=== PATIENT | male | born 1960 | race Caucasian/White ===

== ENCOUNTER → 2017-12-15 | Outpatient (CLI) | payer BC | LOC: WOUNDCARE 08:56 | PROVIDERS: ATTEND Nurse Practitioner | DX: I87.2 Venous insufficiency (chronic) (peripheral) (principal); L97.222 Non-pressure chronic ulcer of left calf with fat layer exposed; L97.212 Non-pressure chronic ulcer of right calf with fat layer exposed; L97.522 Non-pressure chronic ulcer of other part of left foot with fat layer exposed; L97.312 Non-pressure chronic ulcer of right ankle with fat layer exposed | CPT/HCPCS: 99203 ==

== ENCOUNTER → 2017-12-21 | Outpatient (CLI) | payer BC | LOC: WOUNDCARE 14:07 | PROVIDERS: ATTEND Surgery | DX: I87.333 Chronic venous hypertension (idiopathic) with ulcer and inflammation of bilateral lower extremity (principal); L97.312 Non-pressure chronic ulcer of right ankle with fat layer exposed; L97.522 Non-pressure chronic ulcer of other part of left foot with fat layer exposed; L97.222 Non-pressure chronic ulcer of left calf with fat layer exposed; L97.212 Non-pressure chronic ulcer of right calf with fat layer exposed | CPT/HCPCS: 11042; 11045; 87070; 87075; 87077; 87186; 87205 ==

== ENCOUNTER → 2017-12-21 | Outpatient (CLI) | payer BC ==
[2017-12-21 16:45] LABS: BASOPHILS % (AUTO) 1 % (0-10); EOSINOPHILS # (AUTO) 0.4 10^3/uL (0.0-0.3); EOSINOPHILS % (AUTO) 7 % (0-10); HEMATOCRIT 32 % (40-54); HEMOGLOBIN 9.8 G/DL (13.3-17.7); LYMPHOCYTES # (AUTO) 1.6 X 10^3 (1.0-4.0); LYMPHOCYTES % (AUTO) 27 % (12-44); MEAN CORPUSCULAR HEMOGLOBIN 23 PG (25-34); MEAN CORPUSCULAR HGB CONC 31 G/DL (32-36); MEAN CORPUSCULAR VOLUME 74 FL (80-99); MEAN PLATELET VOLUME 8.6 FL (7.4-10.4); MONOCYTES # (AUTO) 0.7 X 10^3 (0.0-1.0); MONOCYTES % (AUTO) 12 % (0-12); NEUTROPHILS # (AUTO) 3.3 X 10^3 (1.8-7.8); NEUTROPHILS % (AUTO) 54 % (42-75); PLATELET COUNT 324 10^3/uL (130-400); RED BLOOD COUNT 4.31 10^6/uL (4.35-5.85); RED CELL DISTRIBUTION WIDTH 17.6 % (10.0-14.5)
[2017-12-21 17:04] LABS: ALANINE AMINOTRANSFERASE 19 U/L (0-55); ALBUMIN 3.2 GM/DL (3.2-4.5); ALKALINE PHOSPHATASE 128 U/L (40-136); BILIRUBIN,TOTAL 0.2 MG/DL (0.1-1.0); BUN/CREATININE RATIO 16; CALCIUM 8.7 MG/DL (8.5-10.1); CARBON DIOXIDE 24 MMOL/L (21-32); CHLORIDE 104 MMOL/L (98-107); CREATININE SERUM 1.09 MG/DL (0.60-1.30); GFR ESTIMATED > 60; GLUCOSE 91 MG/DL (70-105); POTASSIUM 4.1 MMOL/L (3.6-5.0); SODIUM 137 MMOL/L (135-145); TOTAL PROTEIN 7.2 GM/DL (6.4-8.2)
--- NOTE | 2017-12-21 17:38 | Diagnostic Imaging Report ---
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 FINDINGS: Four views of the left tibia and fibula show no fracture, dislocation or other acute bony abnormality. No osteomyelitis is evident. There is soft tissue defect seen in the mid calf which may be secondary to an ulceration but no foreign body is seen. No interstitial air is seen. IMPRESSION: Soft tissue ulceration. No osteomyelitis is evident. Dictated by: Dictated on workstation # [id number]
--- NOTE | 2017-12-21 17:41 | Diagnostic Imaging Report ---
INDICATION: Left foot ulcer. FINDINGS: Three views of the left foot shows no fracture, dislocation or other acute bony abnormality. There is no evidence of osteomyelitis. There is swelling of the foot with no focal mass or foreign body seen. IMPRESSION: Swelling. No osteomyelitis is evident. Dictated by: Dictated on workstation # [id number]
--- NOTE | 2017-12-21 17:46 | Diagnostic Imaging Report ---
INDICATION: Right ankle pain FINDINGS: Three views of the right ankle showed no fracture, dislocation or other acute abnormalities. IMPRESSION: Negative right ankle. Dictated by: Dictated on workstation # [id number]
== END ==
LOC: RAD 16:31
PROVIDERS: ATTEND Surgery
DX: L97.312 Non-pressure chronic ulcer of right ankle with fat layer exposed (principal); L97.522 Non-pressure chronic ulcer of other part of left foot with fat layer exposed; L97.222 Non-pressure chronic ulcer of left calf with fat layer exposed
CPT/HCPCS: 36415; 73590; 73610; 73630; 80053; 85025; 88305

== ENCOUNTER → 2017-12-22 | Outpatient (CLI) | payer BC | LOC: LAB 17:13 | PROVIDERS: ATTEND Surgery | DX: I87.333 Chronic venous hypertension (idiopathic) with ulcer and inflammation of bilateral lower extremity (principal); L97.222 Non-pressure chronic ulcer of left calf with fat layer exposed | CPT/HCPCS: 36415; 81240; 81241; 83090; 85240; 85307; 85597; 85610; 85613; 85670; 85705; 85730; 86146; 86147 ==

== ENCOUNTER → 2018-01-01 | Outpatient (CLI) | payer BC | LOC: WOUNDCARE 09:49 | PROVIDERS: ATTEND Nurse Practitioner | DX: L97.222 Non-pressure chronic ulcer of left calf with fat layer exposed (principal); L97.212 Non-pressure chronic ulcer of right calf with fat layer exposed; L97.312 Non-pressure chronic ulcer of right ankle with fat layer exposed; I87.333 Chronic venous hypertension (idiopathic) with ulcer and inflammation of bilateral lower extremity; L97.522 Non-pressure chronic ulcer of other part of left foot with fat layer exposed | CPT/HCPCS: 99214 ==

== ENCOUNTER → 2018-01-08 | Outpatient (CLI) | payer BC | LOC: WOUNDCARE 11:09 | PROVIDERS: ATTEND Surgery | DX: L97.222 Non-pressure chronic ulcer of left calf with fat layer exposed (principal); L97.212 Non-pressure chronic ulcer of right calf with fat layer exposed; L97.312 Non-pressure chronic ulcer of right ankle with fat layer exposed; I87.333 Chronic venous hypertension (idiopathic) with ulcer and inflammation of bilateral lower extremity; L97.522 Non-pressure chronic ulcer of other part of left foot with fat layer exposed; D68.51 Activated protein C resistance | CPT/HCPCS: 11042; 11045 ==

== ENCOUNTER → 2018-01-12 | Outpatient (CLI) | payer BC | LOC: WOUNDCARE 08:13 | PROVIDERS: ATTEND Nurse Practitioner | DX: L97.222 Non-pressure chronic ulcer of left calf with fat layer exposed (principal); L97.212 Non-pressure chronic ulcer of right calf with fat layer exposed; L97.312 Non-pressure chronic ulcer of right ankle with fat layer exposed; I87.333 Chronic venous hypertension (idiopathic) with ulcer and inflammation of bilateral lower extremity; L97.522 Non-pressure chronic ulcer of other part of left foot with fat layer exposed; D68.51 Activated protein C resistance | CPT/HCPCS: 11042; 11045 ==

== ENCOUNTER → 2018-01-19 | Outpatient (CLI) | payer BC | LOC: WOUNDCARE 08:16 | PROVIDERS: ATTEND Nurse Practitioner | DX: L97.222 Non-pressure chronic ulcer of left calf with fat layer exposed (principal); L97.212 Non-pressure chronic ulcer of right calf with fat layer exposed; L97.312 Non-pressure chronic ulcer of right ankle with fat layer exposed; I87.333 Chronic venous hypertension (idiopathic) with ulcer and inflammation of bilateral lower extremity; L97.522 Non-pressure chronic ulcer of other part of left foot with fat layer exposed; D68.51 Activated protein C resistance | CPT/HCPCS: 11042; 11045; 87070; 87075; 87077; 87186; 87205 ==

== ENCOUNTER → 2018-01-26 | Outpatient (CLI) | payer BC | LOC: WOUNDCARE 08:17 | PROVIDERS: ATTEND Nurse Practitioner | DX: L97.222 Non-pressure chronic ulcer of left calf with fat layer exposed (principal); L97.212 Non-pressure chronic ulcer of right calf with fat layer exposed; L97.312 Non-pressure chronic ulcer of right ankle with fat layer exposed; I87.333 Chronic venous hypertension (idiopathic) with ulcer and inflammation of bilateral lower extremity; L97.522 Non-pressure chronic ulcer of other part of left foot with fat layer exposed; D68.51 Activated protein C resistance | CPT/HCPCS: 11042 ==

== ENCOUNTER → 2018-02-09 | Outpatient (CLI) | payer BC | LOC: WOUNDCARE 08:20 | PROVIDERS: ATTEND Nurse Practitioner | DX: L97.222 Non-pressure chronic ulcer of left calf with fat layer exposed (principal); L97.212 Non-pressure chronic ulcer of right calf with fat layer exposed; L97.312 Non-pressure chronic ulcer of right ankle with fat layer exposed; I87.333 Chronic venous hypertension (idiopathic) with ulcer and inflammation of bilateral lower extremity; L97.522 Non-pressure chronic ulcer of other part of left foot with fat layer exposed; D68.51 Activated protein C resistance | CPT/HCPCS: 11042; 11045 ==

== ENCOUNTER → 2018-02-16 | Outpatient (CLI) | payer BC | LOC: WOUNDCARE 08:12 | PROVIDERS: ATTEND Nurse Practitioner | DX: L97.222 Non-pressure chronic ulcer of left calf with fat layer exposed (principal); L97.212 Non-pressure chronic ulcer of right calf with fat layer exposed; L97.312 Non-pressure chronic ulcer of right ankle with fat layer exposed; I87.333 Chronic venous hypertension (idiopathic) with ulcer and inflammation of bilateral lower extremity; L97.522 Non-pressure chronic ulcer of other part of left foot with fat layer exposed; D68.51 Activated protein C resistance | CPT/HCPCS: 11042; 11045 ==

== ENCOUNTER → 2018-02-18 | Outpatient (CLI) | payer BC | LOC: WOUNDCARE 08:14 | PROVIDERS: ATTEND Orthopaedic Surgery Hand Surgery | DX: L97.222 Non-pressure chronic ulcer of left calf with fat layer exposed (principal); L97.212 Non-pressure chronic ulcer of right calf with fat layer exposed; L97.312 Non-pressure chronic ulcer of right ankle with fat layer exposed; I87.333 Chronic venous hypertension (idiopathic) with ulcer and inflammation of bilateral lower extremity; L97.522 Non-pressure chronic ulcer of other part of left foot with fat layer exposed; D68.51 Activated protein C resistance | CPT/HCPCS: 29581 ==

== ENCOUNTER → 2018-02-23 | Outpatient (CLI) | payer BC ==
[~2018-02-23] MED LIST: OXYC-465 PO
== END ==
LOC: WOUNDCARE 08:12
PROVIDERS: ATTEND Nurse Practitioner
DX: L97.222 Non-pressure chronic ulcer of left calf with fat layer exposed (principal); L97.212 Non-pressure chronic ulcer of right calf with fat layer exposed; L97.312 Non-pressure chronic ulcer of right ankle with fat layer exposed; I87.333 Chronic venous hypertension (idiopathic) with ulcer and inflammation of bilateral lower extremity; L97.522 Non-pressure chronic ulcer of other part of left foot with fat layer exposed; D68.51 Activated protein C resistance; D50.9 Iron deficiency anemia, unspecified; I82.503 Chronic embolism and thrombosis of unspecified deep veins of lower extremity, bilateral
CPT/HCPCS: 11042; 11045

== ENCOUNTER 2018-02-24 05:37 | Outpatient (CLI) | payer BC ==
[~2018-02-24] VITALS: Ht 193 cm; Wt 151.5 kg
[2018-02-24] MEDS ORDERED: OXYC-465 PO (14:22)
== END 2018-02-24 15:09 | disposition home or self-care (01) ==
LOC: PREOP 05:37
PROVIDERS: ATTEND Surgery
DX: Z01.818 Encounter for other preprocedural examination (principal)

== ENCOUNTER → 2018-02-25 | Outpatient (CLI) | payer BC | LOC: WOUNDCARE 08:13 | PROVIDERS: ATTEND Orthopaedic Surgery Hand Surgery | DX: L97.222 Non-pressure chronic ulcer of left calf with fat layer exposed (principal); L97.212 Non-pressure chronic ulcer of right calf with fat layer exposed; L97.312 Non-pressure chronic ulcer of right ankle with fat layer exposed; I87.333 Chronic venous hypertension (idiopathic) with ulcer and inflammation of bilateral lower extremity; L97.522 Non-pressure chronic ulcer of other part of left foot with fat layer exposed; D68.51 Activated protein C resistance; D50.9 Iron deficiency anemia, unspecified; I82.503 Chronic embolism and thrombosis of unspecified deep veins of lower extremity, bilateral | CPT/HCPCS: 29581 ==

== ENCOUNTER 2018-03-01 07:01 | Day surgery (SDC) | payer BC ==
[~2018-03-01] VITALS: Ht 193 cm; Wt 151.5 kg
--- OUTSIDE RECORDS SUMMARY | 2018-03-01 07:04 | XMS REPORT | Continuity of Care Document ---
Author Author [facility] Organization [facility] Address Unknown Phone Unavailable Allergies Active Description Code Type Severity Reaction Onset Reported/Identified Relationship to Patient Clinical Status Yes clindamycin [id number] Drug Allergy Severe ANAPHYLAXIS 02/24/2018 Yes morphine [id number] Drug Allergy Mild N/V 02/24/2018 Medications There is no data. Problems Date Dx Coded Attending Type Code Diagnosis Diagnosed By 10/04/2009 Ot 530.11 10/04/2009 Ot 531.90 10/04/2009 Ot 553.3 10/04/2009 Ot 569.3 11/27/2009 Ot 285.9 11/27/2009 Ot V12.51 02/23/2014 Ot 715.36 02/23/2014 Ot 278.00 02/23/2014 Ot 280.9 02/23/2014 Ot 443.9 02/23/2014 Ot V12.51 02/23/2014 Ot V16.8 02/23/2014 Ot 285.9 02/23/2014 Ot V12.51 02/23/2014 DIDI LLANOS, KARIN R Ot 338.29 02/23/2014 DIDI LLANOS, KARIN R Ot 722.52 02/23/2014 DIDI LLANOS, KARIN R Ot 729.2 02/27/2014 DIDI LLANOS, KARIN R Ot 719.47 03/14/2014 KARIN TOLBERT MD R Ot 719.47 12/18/2017 MARY PERSAUD APRN Ot I87.2 VENOUS INSUFFICIENCY (CHRONIC) (PERIPHER 12/18/2017 MARY PERSAUD APRN Ot L97.212 NON-PRESSURE CHRONIC ULCER OF RIGHT CALF 12/18/2017 MARY PERSAUD APRN Ot L97.222 NON-PRESSURE CHRONIC ULCER OF LEFT CALF 12/18/2017 MARY PERSAUD APRN Ot L97.312 NON-PRS CHRONIC ULCER OF RIGHT ANKLE W F 12/18/2017 CORI, MARY R WOOD DRILL OPERATOR Ot L97.522 NON-PRS CHRONIC ULCER OTH PRT LEFT FOOT 12/18/2017 MARY PERSAUD APRN Ot I87.2 VENOUS INSUFFICIENCY (CHRONIC) (PERIPHER 12/18/2017 MARY PERSAUD WOOD DRILL OPERATOR Ot L97.212 NON-PRESSURE CHRONIC ULCER OF RIGHT CALF 12/18/2017 MARY PERSAUD WOOD DRILL OPERATOR Ot L97.222 NON-PRESSURE CHRONIC ULCER OF LEFT CALF 12/18/2017 MARY PERSAUD WOOD DRILL OPERATOR Ot L97.312 NON-PRS CHRONIC ULCER OF RIGHT ANKLE W F 12/18/2017 MARY PERSAUD WOOD DRILL OPERATOR Ot L97.522 NON-PRS CHRONIC ULCER OTH PRT LEFT FOOT 12/21/2017 Ot 285.9 ANEMIA NOS 12/21/2017 Ot V12.51 HX-VENOUS THROMBOSIS EMBOLISM 12/21/2017 DIDI LLANOS, KARIN R Ot 338.29 OTHER CHRONIC PAIN 12/21/2017 DYLON TOLBERT MDYD R Ot 722.52 LUMB/LUMBOSAC DISC DEGEN 12/21/2017 DIDI LLANOS KARIN R Ot 729.2 NEURALGIA/NEURITIS NOS 12/21/2017 DYLON TOLBERT MDYD R Ot 719.47 JOINT PAIN-ANKLE 12/21/2017 MARY PERSAUD APRN Ot I87.2 VENOUS INSUFFICIENCY (CHRONIC) (PERIPHER 12/21/2017 MARY PERSAUD WOOD DRILL OPERATOR Ot L97.212 NON-PRESSURE CHRONIC ULCER OF RIGHT CALF 12/21/2017 MARY PERSAUD WOOD DRILL OPERATOR Ot L97.222 NON-PRESSURE CHRONIC ULCER OF LEFT CALF 12/21/2017 MARY PERSAUD WOOD DRILL OPERATOR Ot L97.312 NON-PRS CHRONIC ULCER OF RIGHT ANKLE W F 12/21/2017 MARY PERSAUD WOOD DRILL OPERATOR Ot L97.522 NON-PRS CHRONIC ULCER OTH PRT LEFT FOOT 12/22/2017 SHANI HUTCHINSON MD Ot L97.222 NON-PRESSURE CHRONIC ULCER OF LEFT CALF 12/22/2017 SHANI HUTCHINSON MD Ot L97.312 NON-PRS CHRONIC ULCER OF RIGHT ANKLE W F 12/22/2017 SHANI HUTCHINSON MD Ot L97.522 NON-PRS CHRONIC ULCER OTH PRT LEFT FOOT 12/23/2017 SHANI HUTCHINSON MD Ot L97.222 NON-PRESSURE CHRONIC ULCER OF LEFT CALF 12/23/2017 SHANI HUTCHINSON MD Ot L97.312 NON-PRS CHRONIC ULCER OF RIGHT ANKLE W F 12/23/2017 SHANI HUTCHINSON MD Ot L97.522 NON-PRS CHRONIC ULCER OTH PRT LEFT FOOT 12/23/2017 Ot 285.9 ANEMIA NOS 12/23/2017 Ot V12.51 HX-VENOUS THROMBOSIS EMBOLISM 12/23/2017 KARIN TOLBERT MD R Ot 338.29 OTHER CHRONIC PAIN 12/23/2017 KARIN TOLBERT MD R Ot 722.52 LUMB/LUMBOSAC DISC DEGEN 12/23/2017 KARIN TOLBERT MD R Ot 729.2 NEURALGIA/NEURITIS NOS 12/23/2017 KARIN TOLBERT MD R Ot 719.47 JOINT PAIN-ANKLE 12/23/2017 MARY PERSAUD APRN Ot I87.2 VENOUS INSUFFICIENCY (CHRONIC) (PERIPHER 12/23/2017 MARY PERSAUD WOOD DRILL OPERATOR Ot L97.212 NON-PRESSURE CHRONIC ULCER OF RIGHT CALF 12/23/2017 MARY PERSAUD APRN Ot L97.222 NON-PRESSURE CHRONIC ULCER OF LEFT CALF 12/23/2017 MARY PERSAUD APRN Ot L97.312 NON-PRS CHRONIC ULCER OF RIGHT ANKLE W F 12/23/2017 MARY PERSAUD APRN Ot L97.522 NON-PRS CHRONIC ULCER OTH PRT LEFT FOOT 12/23/2017 SHANI HUTCHINSON MD Ot L97.222 NON-PRESSURE CHRONIC ULCER OF LEFT CALF 12/23/2017 SHANI HUTCHINSON MD Ot L97.312 NON-PRS CHRONIC ULCER OF RIGHT ANKLE W F 12/23/2017 SHANI HUTCHINSON MD Ot L97.522 NON-PRS CHRONIC ULCER OTH PRT LEFT FOOT 12/24/2017 SHANI HUTCHINSON MD Ot I87.333 CHRONIC VENOUS HTN W ULCER AND INFLAM OF 12/24/2017 SHANI HUTCHINSON MD Ot L97.212 NON-PRESSURE CHRONIC ULCER OF RIGHT CALF 12/24/2017 SHANI HUTCHINSON MD Ot L97.222 NON-PRESSURE CHRONIC ULCER OF LEFT CALF 12/24/2017 SHANI HUTCHINSON MD Ot L97.312 NON-PRS CHRONIC ULCER OF RIGHT ANKLE W F 12/24/2017 SHANI HUTCHINSON MD Ot L97.522 NON-PRS CHRONIC ULCER OTH PRT LEFT FOOT 12/25/2017 SHANI HUTCHINSON MD Ot I87.333 CHRONIC VENOUS HTN W ULCER AND INFLAM OF 12/25/2017 SHANI HUTCHINSON MD Ot L97.222 NON-PRESSURE CHRONIC ULCER OF LEFT CALF 12/30/2017 SHANI HUTCHINSON MD Ot L97.222 NON-PRESSURE CHRONIC ULCER OF LEFT CALF 12/30/2017 SHANI HUTCHINSON MD Ot L97.312 NON-PRS CHRONIC ULCER OF RIGHT ANKLE W F 12/30/2017 SHANI HUTCHINSON MD Ot L97.522 NON-PRS CHRONIC ULCER OTH PRT LEFT FOOT 01/04/2018 MARY PERSAUD WOOD DRILL OPERATOR Ot I87.2 VENOUS INSUFFICIENCY (CHRONIC) (PERIPHER 01/04/2018 MARY PERSAUD WOOD DRILL OPERATOR Ot L97.212 NON-PRESSURE CHRONIC ULCER OF RIGHT CALF 01/04/2018 MARY PERSAUD WOOD DRILL OPERATOR Ot L97.222 NON-PRESSURE CHRONIC ULCER OF LEFT CALF 01/04/2018 MARY PERSAUD WOOD DRILL OPERATOR Ot L97.312 NON-PRS CHRONIC ULCER OF RIGHT ANKLE W F 01/04/2018 MARY PERSAUD WOOD DRILL OPERATOR Ot L97.522 NON-PRS CHRONIC ULCER OTH PRT LEFT FOOT 01/05/2018 MARY PERSAUD WOOD DRILL OPERATOR Ot I87.333 CHRONIC VENOUS HTN W ULCER AND INFLAM OF 01/05/2018 MARY PERSAUD WOOD DRILL OPERATOR Ot L97.212 NON-PRESSURE CHRONIC ULCER OF RIGHT CALF 01/05/2018 MARY PERSAUD WOOD DRILL OPERATOR Ot L97.222 NON-PRESSURE CHRONIC ULCER OF LEFT CALF 01/05/2018 MARY PERSAUD WOOD DRILL OPERATOR Ot L97.312 NON-PRS CHRONIC ULCER OF RIGHT ANKLE W F 01/05/2018 MARY PERSAUD WOOD DRILL OPERATOR Ot L97.522 NON-PRS CHRONIC ULCER OTH PRT LEFT FOOT 01/06/2018 SHANI HUTCHINSON MD Ot I87.333 CHRONIC VENOUS HTN W ULCER AND INFLAM OF 01/06/2018 SHANI HUTCHINSON MD Ot L97.212 NON-PRESSURE CHRONIC ULCER OF RIGHT CALF 01/06/2018 SHANI HUTCHINSON MD Ot L97.222 NON-PRESSURE CHRONIC ULCER OF LEFT CALF 01/06/2018 SHANI HUTCHINSON MD Ot L97.312 NON-PRS CHRONIC ULCER OF RIGHT ANKLE W F 01/06/2018 SHANI HUTCHINSON MD, Ot L97.522 NON-PRS CHRONIC ULCER OTH PRT LEFT FOOT 01/06/2018 SHANI HUTCHINSON MD, Ot L97.222 NON-PRESSURE CHRONIC ULCER OF LEFT CALF 01/06/2018 SHANI HUTCHINSON MD, Ot L97.312 NON-PRS CHRONIC ULCER OF RIGHT ANKLE W F 01/06/2018 SHANI HUTCHINSON MD, Ot L97.522 NON-PRS CHRONIC ULCER OTH PRT LEFT FOOT 01/06/2018 SHANI HUTCHINSON MD Ot I87.333 CHRONIC VENOUS HTN W ULCER AND INFLAM OF 01/06/2018 SHANI HUTCHINSON MD Ot L97.222 NON-PRESSURE CHRONIC ULCER OF LEFT CALF 01/11/2018 SHANI HUTCHINSON MD, Ot I87.333 CHRONIC VENOUS HTN W ULCER AND INFLAM OF 01/11/2018 SHANI HUTCHINSON MD, Ot L97.222 NON-PRESSURE CHRONIC ULCER OF LEFT CALF 01/11/2018 SHANI HUTCHINSON MD, Ot D68.51 ACTIVATED PROTEIN C RESISTANCE 01/11/2018 SHANI HUTCHINSON MD, Ot I87.333 CHRONIC VENOUS HTN W ULCER AND INFLAM OF 01/11/2018 SHANI HUTCHINSON MD Ot L97.212 NON-PRESSURE CHRONIC ULCER OF RIGHT CALF 01/11/2018 SHANI HUTCHINSON MD Ot L97.222 NON-PRESSURE CHRONIC ULCER OF LEFT CALF 01/11/2018 SHANI HUTCHINSON MD, Ot L97.312 NON-PRS CHRONIC ULCER OF RIGHT ANKLE W F 01/11/2018 SHANI HUTCHINSON MD, Ot L97.522 NON-PRS CHRONIC ULCER OTH PRT LEFT FOOT 01/13/2018 MARY PERSAUD APRN Ot D68.51 ACTIVATED PROTEIN C RESISTANCE 01/13/2018 MARY PERSAUD APRN Ot I87.333 CHRONIC VENOUS HTN W ULCER AND INFLAM OF 01/13/2018 MARY PERSAUD APRN Ot L97.212 NON-PRESSURE CHRONIC ULCER OF RIGHT CALF 01/13/2018 MARY PERSAUD APRN Ot L97.222 NON-PRESSURE CHRONIC ULCER OF LEFT CALF 01/13/2018 MARY PERSAUD APRN Ot L97.312 NON-PRS CHRONIC ULCER OF RIGHT ANKLE W F 01/13/2018 MARY PERSAUD APRN Ot L97.522 NON-PRS CHRONIC ULCER OTH PRT LEFT FOOT 01/15/2018 MARY PERSAUD WOOD DRILL OPERATOR Ot I87.333 CHRONIC VENOUS HTN W ULCER AND INFLAM OF 01/15/2018 MARY PERSAUD R WOOD DRILL OPERATOR Ot L97.212 NON-PRESSURE CHRONIC ULCER OF RIGHT CALF 01/15/2018 MARY PERSAUD R WOOD DRILL OPERATOR Ot L97.222 NON-PRESSURE CHRONIC ULCER OF LEFT CALF 01/15/2018 MARY PERSAUD WOOD DRILL OPERATOR Ot L97.312 NON-PRS CHRONIC ULCER OF RIGHT ANKLE W F 01/15/2018 MARY PERSAUD R WOOD DRILL OPERATOR Ot L97.522 NON-PRS CHRONIC ULCER OTH PRT LEFT FOOT 01/21/2018 MARY PERSAUD WOOD DRILL OPERATOR Ot D68.51 ACTIVATED PROTEIN C RESISTANCE 01/21/2018 MARY PERSAUD R WOOD DRILL OPERATOR Ot I87.333 CHRONIC VENOUS HTN W ULCER AND INFLAM OF 01/21/2018 MARY PERSAUD R WOOD DRILL OPERATOR Ot L97.212 NON-PRESSURE CHRONIC ULCER OF RIGHT CALF 01/21/2018 MARY PERSAUD R WOOD DRILL OPERATOR Ot L97.222 NON-PRESSURE CHRONIC ULCER OF LEFT CALF 01/21/2018 MARY PERSAUD R WOOD DRILL OPERATOR Ot L97.312 NON-PRS CHRONIC ULCER OF RIGHT ANKLE W F 01/21/2018 MARY PERSAUD R WOOD DRILL OPERATOR Ot L97.522 NON-PRS CHRONIC ULCER OTH PRT LEFT FOOT 01/27/2018 MARY PERSAUD R WOOD DRILL OPERATOR Ot D68.51 ACTIVATED PROTEIN C RESISTANCE 01/27/2018 MARY PERSAUD R WOOD DRILL OPERATOR Ot I87.333 CHRONIC VENOUS HTN W ULCER AND INFLAM OF 01/27/2018 MARY PERSAUD WOOD DRILL OPERATOR Ot L97.212 NON-PRESSURE CHRONIC ULCER OF RIGHT CALF 01/27/2018 MARY PERSAUD WOOD DRILL OPERATOR Ot L97.222 NON-PRESSURE CHRONIC ULCER OF LEFT CALF 01/27/2018 CORI MARY R WOOD DRILL OPERATOR Ot L97.312 NON-PRS CHRONIC ULCER OF RIGHT ANKLE W F 01/27/2018 MARY PERSAUD R WOOD DRILL OPERATOR Ot L97.522 NON-PRS CHRONIC ULCER OTH PRT LEFT FOOT 02/02/2018 MARY PERSAUD R WOOD DRILL OPERATOR Ot D68.51 ACTIVATED PROTEIN C RESISTANCE 02/02/2018 MARY PERSAUD R WOOD DRILL OPERATOR Ot I87.333 CHRONIC VENOUS HTN W ULCER AND INFLAM OF 02/02/2018 MARY PERSAUD R WOOD DRILL OPERATOR Ot L97.212 NON-PRESSURE CHRONIC ULCER OF RIGHT CALF 02/02/2018 MARY PERSAUD APRN Ot L97.222 NON-PRESSURE CHRONIC ULCER OF LEFT CALF 02/02/2018 MARY PERSAUD APRN Ot L97.312 NON-PRS CHRONIC ULCER OF RIGHT ANKLE W F 02/02/2018 MARY PERSAUD APRN Ot L97.522 NON-PRS CHRONIC ULCER OTH PRT LEFT FOOT 02/08/2018 Ot 285.9 ANEMIA NOS 02/08/2018 Ot V12.51 HX-VENOUS THROMBOSIS EMBOLISM 02/08/2018 KARIN TOLBERT MD R Ot 338.29 OTHER CHRONIC PAIN 02/08/2018 KARIN TOLBERT MD R Ot 722.52 LUMB/LUMBOSAC DISC DEGEN 02/08/2018 KARIN TOLBERT MD R Ot 729.2 NEURALGIA/NEURITIS NOS 02/08/2018 KARIN TOLBERT MD R Ot 719.47 JOINT PAIN-ANKLE 02/08/2018 MARY PERSAUD APRN Ot I87.2 VENOUS INSUFFICIENCY (CHRONIC) (PERIPHER 02/08/2018 MARY PERSAUD APRN Ot L97.212 NON-PRESSURE CHRONIC ULCER OF RIGHT CALF 02/08/2018 MARY PERSAUD APRN Ot L97.222 NON-PRESSURE CHRONIC ULCER OF LEFT CALF 02/08/2018 MARY PERSAUD APRN Ot L97.312 NON-PRS CHRONIC ULCER OF RIGHT ANKLE W F 02/08/2018 MARY PERSAUD APRN Ot L97.522 NON-PRS CHRONIC ULCER OTH PRT LEFT FOOT 02/08/2018 SHANI HUTCHINSON MD Ot I87.333 CHRONIC VENOUS HTN W ULCER AND INFLAM OF 02/08/2018 SHANI HUTCHINSON MD Ot L97.212 NON-PRESSURE CHRONIC ULCER OF RIGHT CALF 02/08/2018 SHANI HUTCHINSON MD Ot L97.222 NON-PRESSURE CHRONIC ULCER OF LEFT CALF 02/08/2018 SHANI HUTCHINSON MD Ot L97.312 NON-PRS CHRONIC ULCER OF RIGHT ANKLE W F 02/08/2018 SHANI HUTCHINSON MD Ot L97.522 NON-PRS CHRONIC ULCER OTH PRT LEFT FOOT 02/08/2018 SHANI HUTCHINSON MD Ot L97.222 NON-PRESSURE CHRONIC ULCER OF LEFT CALF 02/08/2018 SHANI HUTCHINSON MD Ot L97.312 NON-PRS CHRONIC ULCER OF RIGHT ANKLE W F 02/08/2018 SHANI HUTCHINSON MD Ot L97.522 NON-PRS CHRONIC ULCER OTH PRT LEFT FOOT 02/08/2018 SHANI HUTCHINSON MD Ot I87.333 CHRONIC VENOUS HTN W ULCER AND INFLAM OF 02/08/2018 SHANI HUTCHINSON MD Ot L97.222 NON-PRESSURE CHRONIC ULCER OF LEFT CALF 02/08/2018 MARY PERSAUD WOOD DRILL OPERATOR Ot I87.333 CHRONIC VENOUS HTN W ULCER AND INFLAM OF 02/08/2018 MARY PERSAUD WOOD DRILL OPERATOR Ot L97.212 NON-PRESSURE CHRONIC ULCER OF RIGHT CALF 02/08/2018 MARY PERSAUD WOOD DRILL OPERATOR Ot L97.222 NON-PRESSURE CHRONIC ULCER OF LEFT CALF 02/08/2018 MARY PERSAUD APRN Ot L97.312 NON-PRS CHRONIC ULCER OF RIGHT ANKLE W F 02/08/2018 MARY PERSAUD WOOD DRILL OPERATOR Ot L97.522 NON-PRS CHRONIC ULCER OTH PRT LEFT FOOT 02/08/2018 SHANI HUTCHINSON MD Ot D68.51 ACTIVATED PROTEIN C RESISTANCE 02/08/2018 SHANI HUTCHINSON MD Ot I87.333 CHRONIC VENOUS HTN W ULCER AND INFLAM OF 02/08/2018 SHANI HUTCHINSON MD Ot L97.212 NON-PRESSURE CHRONIC ULCER OF RIGHT CALF 02/08/2018 SHANI HUTCHINSON MD Ot L97.222 NON-PRESSURE CHRONIC ULCER OF LEFT CALF 02/08/2018 SHANI HUTCHINSON MD Ot L97.312 NON-PRS CHRONIC ULCER OF RIGHT ANKLE W F 02/08/2018 SHANI HUTCHINSON MD Ot L97.522 NON-PRS CHRONIC ULCER OTH PRT LEFT FOOT 02/08/2018 MARY PERSAUD WOOD DRILL OPERATOR Ot D68.51 ACTIVATED PROTEIN C RESISTANCE 02/08/2018 MARY PERSAUD WOOD DRILL OPERATOR Ot I87.333 CHRONIC VENOUS HTN W ULCER AND INFLAM OF 02/08/2018 MARY PERSAUD WOOD DRILL OPERATOR Ot L97.212 NON-PRESSURE CHRONIC ULCER OF RIGHT CALF 02/08/2018 MARY PERSAUD WOOD DRILL OPERATOR Ot L97.222 NON-PRESSURE CHRONIC ULCER OF LEFT CALF 02/08/2018 MARY PERSAUD WOOD DRILL OPERATOR Ot L97.312 NON-PRS CHRONIC ULCER OF RIGHT ANKLE W F 02/08/2018 CORI, MARY R WOOD DRILL OPERATOR Ot L97.522 NON-PRS CHRONIC ULCER OTH PRT LEFT FOOT 02/08/2018 MARY PERSAUD WOOD DRILL OPERATOR Ot D68.51 ACTIVATED PROTEIN C RESISTANCE 02/08/2018 MARY PERSAUD WOOD DRILL OPERATOR Ot I87.333 CHRONIC VENOUS HTN W ULCER AND INFLAM OF 02/08/2018 MARY PERSAUD R WOOD DRILL OPERATOR Ot L97.212 NON-PRESSURE CHRONIC ULCER OF RIGHT CALF 02/08/2018 MARY PERSAUD R WOOD DRILL OPERATOR Ot L97.222 NON-PRESSURE CHRONIC ULCER OF LEFT CALF 02/08/2018 CORI MARY R WOOD DRILL OPERATOR Ot L97.312 NON-PRS CHRONIC ULCER OF RIGHT ANKLE W F 02/08/2018 CORI MARY R WOOD DRILL OPERATOR Ot L97.522 NON-PRS CHRONIC ULCER OTH PRT LEFT FOOT 02/08/2018 MARY PERSAUD WOOD DRILL OPERATOR Ot D68.51 ACTIVATED PROTEIN C RESISTANCE 02/08/2018 MARY PERSAUD WOOD DRILL OPERATOR Ot I87.333 CHRONIC VENOUS HTN W ULCER AND INFLAM OF 02/08/2018 MARY PERSAUD R WOOD DRILL OPERATOR Ot L97.212 NON-PRESSURE CHRONIC ULCER OF RIGHT CALF 02/08/2018 MARY PERSAUD WOOD DRILL OPERATOR Ot L97.222 NON-PRESSURE CHRONIC ULCER OF LEFT CALF 02/08/2018 MARY PERSAUD WOOD DRILL OPERATOR Ot L97.312 NON-PRS CHRONIC ULCER OF RIGHT ANKLE W F 02/08/2018 MARY PERSAUD WOOD DRILL OPERATOR Ot L97.522 NON-PRS CHRONIC ULCER OTH PRT LEFT FOOT 02/10/2018 MARY PERSAUD WOOD DRILL OPERATOR Ot D68.51 ACTIVATED PROTEIN C RESISTANCE 02/10/2018 MARY PERSAUD WOOD DRILL OPERATOR Ot I87.333 CHRONIC VENOUS HTN W ULCER AND INFLAM OF 02/10/2018 MARY PERSAUD WOOD DRILL OPERATOR Ot L97.212 NON-PRESSURE CHRONIC ULCER OF RIGHT CALF 02/10/2018 MARY PERSAUD R WOOD DRILL OPERATOR Ot L97.222 NON-PRESSURE CHRONIC ULCER OF LEFT CALF 02/10/2018 MARY PERSAUD R WOOD DRILL OPERATOR Ot L97.312 NON-PRS CHRONIC ULCER OF RIGHT ANKLE W F 02/10/2018 MARY PERSAUD R WOOD DRILL OPERATOR Ot L97.522 NON-PRS CHRONIC ULCER OTH PRT LEFT FOOT 02/11/2018 MARY PERSAUD R WOOD DRILL OPERATOR Ot D68.51 ACTIVATED PROTEIN C RESISTANCE 02/11/2018 MARY PERSAUD APRN Ot I87.333 CHRONIC VENOUS HTN W ULCER AND INFLAM OF 02/11/2018 MARY PERSAUD APRN Ot L97.212 NON-PRESSURE CHRONIC ULCER OF RIGHT CALF 02/11/2018 MARY PERSAUD WOOD DRILL OPERATOR Ot L97.222 NON-PRESSURE CHRONIC ULCER OF LEFT CALF 02/11/2018 MARY PERSAUD WOOD DRILL OPERATOR Ot L97.312 NON-PRS CHRONIC ULCER OF RIGHT ANKLE W F 02/11/2018 MARY PERSAUD APRN Ot L97.522 NON-PRS CHRONIC ULCER OTH PRT LEFT FOOT 02/22/2018 ZAIRE WESTFALL MD Ot D68.51 ACTIVATED PROTEIN C RESISTANCE 02/22/2018 ZAIRE WESTFALL MD Ot I87.333 CHRONIC VENOUS HTN W ULCER AND INFLAM OF 02/22/2018 ZAIRE WESTFALL MD Ot L97.212 NON-PRESSURE CHRONIC ULCER OF RIGHT CALF 02/22/2018 ZAIRE WESTFALL MD Ot L97.222 NON-PRESSURE CHRONIC ULCER OF LEFT CALF 02/22/2018 ZAIRE WESTFALL MD Ot L97.312 NON-PRS CHRONIC ULCER OF RIGHT ANKLE W F 02/22/2018 ZAIRE WESTFALL MD Ot L97.522 NON-PRS CHRONIC ULCER OTH PRT LEFT FOOT 02/24/2018 ZAIRE WESTFALL MD Ot D68.51 ACTIVATED PROTEIN C RESISTANCE 02/24/2018 ZAIRE WESTFALL MD Ot I87.333 CHRONIC VENOUS HTN W ULCER AND INFLAM OF 02/24/2018 ZAIRE WESTFALL MD Ot L97.212 NON-PRESSURE CHRONIC ULCER OF RIGHT CALF 02/24/2018 ZAIRE WESTFALL MD Ot L97.222 NON-PRESSURE CHRONIC ULCER OF LEFT CALF 02/24/2018 ZAIRE WESTFALL MD Ot L97.312 NON-PRS CHRONIC ULCER OF RIGHT ANKLE W F 02/24/2018 ZAIRE WESTFALL MD Ot L97.522 NON-PRS CHRONIC ULCER OTH PRT LEFT FOOT 02/24/2018 PEDRO HINSON DO Ot Z01.818 ENCOUNTER FOR OTHER PREPROCEDURAL EXAMIN 02/24/2018 MARY PERSAUD APRN Ot D50.9 IRON DEFICIENCY ANEMIA, UNSPECIFIED 02/24/2018 MARY PERSAUD APRN Ot D68.51 ACTIVATED PROTEIN C RESISTANCE 02/24/2018 CORI, MARY R WOOD DRILL OPERATOR Ot I82.503 CHRONIC EMBLSM AND THOMBOS UNSP DEEP VEI 02/24/2018 MARY PERSAUD WOOD DRILL OPERATOR Ot I87.333 CHRONIC VENOUS HTN W ULCER AND INFLAM OF 02/24/2018 MARY PERSAUD WOOD DRILL OPERATOR Ot L97.212 NON-PRESSURE CHRONIC ULCER OF RIGHT CALF 02/24/2018 MARY PERSAUD WOOD DRILL OPERATOR Ot L97.222 NON-PRESSURE CHRONIC ULCER OF LEFT CALF 02/24/2018 MARY PERSAUD WOOD DRILL OPERATOR Ot L97.312 NON-PRS CHRONIC ULCER OF RIGHT ANKLE W F 02/24/2018 MARY PERSAUD WOOD DRILL OPERATOR Ot L97.522 NON-PRS CHRONIC ULCER OTH PRT LEFT FOOT Procedures There is no data. Results Test Result Range Bacteria identification in isolate by anaerobe culture - 12/21/17 15:35 Bacteria identification in isolate by anaerobe culture NOANA NRG Gram stain microscopy - 12/21/17 15:35 Gram stain microscopy No bacteria seen NRG Bacteria identification in wound by culture - 12/21/17 15:35 Bacteria identification in wound by culture SEE REPORT NRG FREE TEXT EXTERNAL SUSCEPTIBILITY REPORTED NRG QUANTITY OF GROWTH . NRG RML Sensitivity Panel - 12/21/17 15:35 Gentamicin susceptibility test by minimum inhibitory concentration < = NRG Levofloxacin susceptibility test by minimum inhibitory concentration <= NRG Tobramycin susceptibility test by minimum inhibitory concentration S NRG Piperacillin/tazobactam susceptibility test by minimum inhibitory concentration = NRG Ciprofloxacin susceptibility test by minimum inhibitory concentration <= NRG Meropenem susceptibility test by minimum inhibitory concentration 1 NRG Aztreonam susceptibility test by minimum inhibitory concentration 8 NRG Cefepime susceptibility test by minimum inhibitory concentration 2 NRG Imipenem susceptibility test by minimum inhibitory concentration 2 NRG Ceftazidime susceptibility test by minimum inhibitory concentration <= NRG Complete blood count (CBC) with automated white blood cell (WBC) differential - 12/21/17 16:42 Blood leukocytes automated count (number/volume) 6.0 10*3/uL 4.3-11.0 Blood erythrocytes automated count (number/volume) 4.31 10*6/uL 4.35-5.85 Venous blood hemoglobin measurement (mass/volume) 9.8 g/dL 13.3-17.7 Blood hematocrit (volume fraction) 32 % 40-54 Automated erythrocyte mean corpuscular volume 74 [foz_us] 80-99 Automated erythrocyte mean corpuscular hemoglobin (mass per erythrocyte) 23 pg 25-34 Automated erythrocyte mean corpuscular hemoglobin concentration measurement ( mass/volume) 31 g/dL 32-36 Automated erythrocyte distribution width ratio 17.6 % 10.0-14.5 Automated blood platelet count (count/volume) 324 10*3/uL 130-400 Automated blood platelet mean volume measurement 8.6 [foz_us] 7.4-10.4 Automated blood neutrophils/100 leukocytes 54 % 42-75 Automated blood lymphocytes/100 leukocytes 27 % 12-44 Blood monocytes/100 leukocytes 12 % 0-12 Automated blood eosinophils/100 leukocytes 7 % 0-10 Automated blood basophils/100 leukocytes 1 % 0-10 Blood neutrophils automated count (number/volume) 3.3 10*3 1.8-7.8 Blood lymphocytes automated count (number/volume) 1.6 10*3 1.0-4.0 Blood monocytes automated count (number/volume) 0.7 10*3 0.0-1.0 Automated eosinophil count 0.4 10*3/uL 0.0-0.3 Automated blood basophil count (count/volume) 0.0 10*3/uL 0.0-0.1 Comprehensive metabolic panel - 12/21/17 16:42 Serum or plasma sodium measurement (moles/volume) 137 mmol/L 135-145 Serum or plasma potassium measurement (moles/volume) 4.1 mmol/L 3.6-5.0 Serum or plasma chloride measurement (moles/volume) 104 mmol/L 98-107 Carbon dioxide 24 mmol/L 21-32 Serum or plasma anion gap determination (moles/volume) 9 mmol/L 5-14 Serum or plasma urea nitrogen measurement (mass/volume) 17 mg/dL 7-18 Serum or plasma creatinine measurement (mass/volume) 1.09 mg/dL 0.60-1.30 Serum or plasma urea nitrogen/creatinine mass ratio 16 NRG Serum or plasma creatinine measurement with calculation of estimated glomerular filtration rate > NRG Serum or plasma glucose measurement (mass/volume) 91 mg/dL 70-105 Serum or plasma calcium measurement (mass/volume) 8.7 mg/dL 8.5-10.1 Serum or plasma total bilirubin measurement (mass/volume) 0.2 mg/dL 0.1-1.0 Serum or plasma alkaline phosphatase measurement (enzymatic activity/volume) 128 U/L 40-136 Serum or plasma aspartate aminotransferase measurement (enzymatic activity/ volume) 22 U/L 5-34 Serum or plasma alanine aminotransferase measurement (enzymatic activity/volume ) 19 U/L 0-55 Serum or plasma protein measurement (mass/volume) 7.2 g/dL 6.4-8.2 Serum or plasma albumin measurement (mass/volume) 3.2 g/dL 3.2-4.5 CALCIUM CORRECTED 9.3 mg/dL 8.5-10.1 [id number] - 12/22/17 17:30 Inhibin B measurement Equivocal NRG Partial thromboplastin time (PTT) mixing study immediately after addition of normal plasma 32.9 % 20.6-39.2 Lupus anticoagulant-sensitive activated partial thromboplastin time (aPTT-LA) after 1:1 mixing with normal pooled plasma 38.3 % 24.4- 41.7 Activated partial thromboplastin time (aPTT) mixing study 1:1 ratio after 2 hours incubation 37.7 % 20.6-39.2 [id number] - 12/22/17 17:30 Lupus anticoagulant-sensitive activated partial thromboplastin time (APTT) in platelet poor plasma 44.7 % 20.6-39.2 PT panel - platelet poor plasma by coagulation assay 15.1 % 10.5-15.7 INR in platelet poor plasma by coagulation assay 1.2 0.7 -1.3 Factor VIII (VW factor) antigen assay 202 % 60-150 Homocysteine [mass/volume] in serum or plasma 7.1 % 0.0- 15.4 Serum cardiolipin IgG antibody detection <20.0 <=20.0 Serum cardiolipin IgM ab <20.0 <=20.0 Prothrombin gene [id number] mutation detection FOOTNOTE NRG Serum beta 2 glycoprotein 1 IgM antibody detection <20.0 <=20.0 Serum beta 2 glycoprotein 1 IgG antibody detection <20.0 <=20.0 ANTICOAG? Unknown NRG Activated protein C (APC) resistance assay 1.27 % >=1.87 Dilute Farzad's viper venom time - 12/22/17 17:30 Dilute Farzad's viper venom time (DRVVT) screening test 1.06 % 0.00-1.20 Blood or tissue F5 gene p.[id number] detection by molecular genetics method - 17:30 Blood or tissue F5 gene p.R506Q detection by molecular genetics method FOOTNOTE NRG Coagulation factor 5 activated measurement (units/volume) in platelet poor plasma by coagulation assay FOOTNOTE NRG Lupus anticoagulant neutralization hexagonal phase phospholipid time inplatelet poor plasma by coagulation assay - 12/22/17 17:30 Lupus anticoagulant neutralization hexagonal phase phospholipid detection in platelet poor plasma Negative Negative Plasma thrombin time - 12/22/17 17:30 Protamine sulfate-corrected thrombin time 15.5 % 15.0- 20.8 Bacteria identification in isolate by anaerobe culture - 01/19/18 09:04 Bacteria identification in isolate by anaerobe culture NOANA NRG Gram stain microscopy - 01/19/18 09:04 Gram stain microscopy No white blood cells NRG Bacteria identification in wound by culture - 01/19/18 09:04 Bacteria identification in wound by culture [id number] NRG FREE TEXT EXTERNAL SEE RML COMMENTS NRG QUANTITY OF GROWTH FEW NRG RML Sensitivity Panel - 01/19/18 09:04 Gentamicin susceptibility test by minimum inhibitory concentration < = NRG Levofloxacin susceptibility test by minimum inhibitory concentration > NRG Tobramycin susceptibility test by minimum inhibitory concentration S NRG Piperacillin/tazobactam susceptibility test by minimum inhibitory concentration S NRG Ciprofloxacin susceptibility test by minimum inhibitory concentration > NRG Meropenem susceptibility test by minimum inhibitory concentration 0.5 NRG Aztreonam susceptibility test by minimum inhibitory concentration 4 NRG Cefepime susceptibility test by minimum inhibitory concentration 4 NRG Imipenem susceptibility test by minimum inhibitory concentration 1 NRG Ceftazidime susceptibility test by minimum inhibitory concentration <= NRG RML Sensitivity Panel - 01/19/18 09:04 Gentamicin susceptibility test by minimum inhibitory concentration > NRG Trimethoprim/sulfamethoxazole susceptibility test by minimum inhibitoryconcentration R NRG Levofloxacin susceptibility test by minimum inhibitory concentration > NRG Ampicillin susceptibility test by minimum inhibitory concentration < = NRG Cefazolin susceptibility test by minimum inhibitory concentration 4 NRG Ceftriaxone susceptibility test by minimum inhibitory concentration <= NRG Piperacillin/tazobactam susceptibility test by minimum inhibitory concentration S NRG Ciprofloxacin susceptibility test by minimum inhibitory concentration > NRG Amoxicillin and clavulanate potassium susc PHILLIP <= NRG Encounters ACCT No. Visit Date/Time Discharge Status Pt. Type Provider Facility Loc./Unit Complaint [id number] 02/25/2018 08:13:00 02/25/2018 23:59:59 CLS Outpatient ZAIRE WESTFALL MD [facility] WOUND[facility] [id number] 02/24/2018 05:37:00 02/24/2018 15:09:00 DIS Outpatient SRAVAN DO PEDRO Danielle [facility] PREOP COLONOSCOPY/EGD [id number] 02/23/2018 08:12:00 02/23/2018 23:59:59 CLS Outpatient MARY PERSAUD R WOOD DRILL OPERATOR [facility] WOUNDC[facility] [id number] 02/18/2018 08:14:00 02/18/2018 23:59:59 CLS Outpatient ZAIRE WESTFALL MD [facility] W[facility] [id number] 02/16/2018 08:12:00 02/16/2018 23:59:59 CLS Outpatient GLADYS PERSAUDN R WOOD DRILL OPERATOR [facility] W[facility] [id number] 02/09/2018 08:20:00 02/09/2018 23:59:59 CLS Outpatient CORI MARY R WOOD DRILL OPERATOR [facility] W[facility] [id number] 02/08/2018 10:30:00 02/08/2018 23:59:59 CLS Outpatient DORIAN LLANOS, DEANA [facility] ONC [id number] 01/26/2018 08:17:00 01/26/2018 23:59:59 CLS Outpatient CORI MARY R WOOD DRILL OPERATOR [facility] WOUND[facility] [id number] 01/19/2018 08:16:00 01/19/2018 23:59:59 CLS Outpatient CORI MARY R WOOD DRILL OPERATOR [facility] W[facility] [id number] 01/12/2018 08:13:00 01/12/2018 23:59:59 CLS Outpatient CORI MARY R WOOD DRILL OPERATOR [facility] [id number] 01/08/2018 11:09:00 01/08/2018 23:59:59 CLS Outpatient SHANI HUTCHINSON MD [facility] [id number] 01/01/2018 09:49:00 01/01/2018 23:59:59 CLS Outpatient MARY PERSAUD APRN [facility] [id number] 12/22/2017 17:13:00 12/22/2017 23:59:59 CLS Outpatient SHANI HUTCHINSON MD [facility] LAB NON PRESSURE CHRONIC ULCER [id number] 12/21/2017 17:07:00 12/21/2017 23:59:59 CLS Outpatient SHANI HUTCHINSON MD [facility] RAD NON-PRESSURE CHRONIC ULCER OF LEFT CALF [id number] 12/21/2017 14:07:00 12/21/2017 23:59:59 CLS Outpatient SHANI HUTCHINSON MD [facility] WOUND[facility] [id number] 12/15/2017 08:56:00 12/15/2017 23:59:59 CLS Outpatient MARY PERSAUD APRN [facility] [id number] 05/19/2016 16:00:00 05/19/2016 23:59:59 CLS Preadmit SHANI HUTCHINSON MD [facility] [id number] 12/06/2015 07:55:00 12/06/2015 23:59:59 CLS Preadmit ANGELITATARSHA [facility] ONC [id number] 02/23/2014 14:49:00 02/23/2014 23:59:59 CLS Outpatient KARIN TOLBERT MD [facility] RAD PAINFUL AREA OF HEEL AND M-P JOINT [id number] 07/05/2013 10:07:00 07/05/2013 23:59:59 CLS Outpatient KARIN TOLBERT MD [facility] RAD LOW BACK PAIN [id number] 03/01/2018 08:00:00 PEN Preadmit PEDRO HINSON DO [facility] ENDO ANEMIA [id number] 11/28/2009 00:00:00 Document Registration [id number] 10/25/2009 09:39:00 Document Registration [id number] 10/04/2009 08:30:00 Document Registration [id number] 08/28/2009 09:15:00 Document Registration [id number] 10/19/2008 07:23:00 Document Registration
[2018-03-01] MEDS ORDERED: LACTATED RINGERS 1,000 ML IV ONE (07:05)
[2018-03-01] MEDS ORDERED: LACTATED RINGERS 1,000 ML IV STA (07:11)
[2018-03-01] MEDS ORDERED: HURRICAINE EXT TUBE (BENZOCAINE) XX PRN (07:15)
[2018-03-01] MEDS ORDERED: PROPOFOL INJECTION 50 ML IV ONE (07:22)
[2018-03-01] MEDS ORDERED: MIDAZOLAM 2 MG/2 ML (VERSED) VIAL ONE ×2 (07:23)
[2018-03-01 07:27] VITALS: BP 143/81
--- NOTE | 2018-03-01 08:03 | Progress Note-Pre Operative ---
Pre-Operative Progress Note H&P Reviewed The H&P was reviewed, patient examined and no changes noted. Time Seen by Provider: 07:59 Date H&P Reviewed: Mar 01, 2018 Time H&P Reviewed: 08:00 Pre-Operative Diagnosis: Gastritis, Hx of colon polyps, anemia PEDRO HINSON DO Mar 01, 2018 08:03
[2018-03-01] MEDS ORDERED: HURRICAINE EXT TUBE (BENZOCAINE) ONE (08:06)
--- NOTE | 2018-03-01 08:43 | Progress Note-Post Operative ---
Post-Operative Progess Note Surgeon (s)/Sealer Dry Cell (s) Surgeon PEDRO HINSON DO Sealer Dry Cell: none Pre-Operative Diagnosis Gastritis, Hx of colon polyps, anemia Post-Operative Diagnosis Gastric Ulcer Poor prep Int Hemorrhoids Procedure & Operative Findings Date of Procedure 03/01/18 Procedure Performed/Findings EGD with bx Colonoscopy Anesthesia Type IV sedation by PUBLIC HEALTH SOCIAL WORKER Estimated Blood Loss Estimated blood loss (mL): scant Specimens/Packing Specimens Removed Antral bx Body of stomach bx PEDRO HINSON DO Mar 01, 2018 08:43
--- NOTE | 2018-03-01 08:45 | Endoscopy Discharge Instruct ---
Endo Procedure/Findings Findings 1.: Gastric Ulcer 2.: Internal Hemorrhoids Discharge Instructions - Activity: You might feel a little sleepy until tomorrow. This is due to the medicine you received to relax you. Until tomorrow, you should: NOT drive a car, operate machinery or power tools. NOT drink any alcoholic beverages. NOT make any important decisions or sign importortant papers. Do not return to work until tomorrow, unless otherwise instructed. Resume previous activities tomorrow. Diet: Start by taking liquids. If you tolerate liquids, advance to solid food. Make an appointment for one week Notify Physician - If you experience excessive bleeding, unusual abdominal pain, fever, or chest pain, contact your doctor immediately. Follow-Up: - I have received and understand the above instructions and will call my doctor if I have any further questions. Patient Signature Date Nurse Signature Other (Relationship) PEDRO HINSON DO Mar 01, 2018 08:45
[2018-03-01 08:55] VITALS: BP 135/64
[2018-03-01 09:25] VITALS: BP 142/74
[2018-03-01 10:35] VITALS: BP 142/74
--- NOTE | 2018-03-01 10:39 | Anesthesia-General Post-Op ---
MAC Patient Condition Mental Status/LOC: Same as Preop Cardiovascular: Satisfactory Nausea/Vomiting: Absent Respiratory: Satisfactory Pain: Controlled Complications: Absent Post Op Complications Complications None Follow Up Care/Instructions Patient Instructions None needed. Anesthesiology Discharge Order Discharge Order Patient was seen after the procedure and he was doing well, no complaints, stable vital signs, no apparent adverse anesthesia problems. EVELINE WARD DO Mar 01, 2018 10:39
--- NOTE | 2018-03-01 13:14 | OPERATIVE REPORT ---
DATE OF SERVICE: 03/01/2018 PREOPERATIVE DIAGNOSES: 1. Chronic gastritis, history of gastric ulcers. 2. History of colon polyps. 3. Anemia. POSTOPERATIVE DIAGNOSES: 1. Gastric ulcer. 2. Poor prep. 3. Internal hemorrhoids. PROCEDURE: 1. EGD with biopsy. 2. Colonoscopy. SURGEON: Hilario Rodriguez DO. HIGH SCHOOL HVAC R INSTRUCTOR: None. ANESTHESIA: IV sedation by the REVENUE INSPECTOR. SPECIMEN: Biopsy from the stomach. One the antrum near an ulcer and one from the body of the stomach. BLOOD LOSS: Scant. FLUIDS: Per anesthesia. POSTOPERATIVE CONDITION: Stable. INDICATION FOR PROCEDURE: The patient is a 57-year-old male who is having some anemia, history of coagulopathy. He also has a history of gastric ulcers, been having some chronic gastritis and has history of colon polyps, needed a workup for all of these findings. The patient had a gastric ulcer. He also had some retained meat in the stomach with mild gastritis and then colonoscopy, I was able to get to the cecum, but unable to clear all of the retained liquid and solid fecal material. PROCEDURE NOTE: After informed consent was obtained, the patient was brought to the endoscopy suite, placed in the bed in left lateral decubitus position and administered IV sedation by the REVENUE INSPECTOR who then monitored her vitals the entire time, heart rate, blood pressure and pulse ox and the scope was inserted down the mouth through the esophagus into the stomach. Upon entering the stomach noted a large piece of meat almost blocking the pylorus, able to get past this and into the first portion of duodenum, took a picture of this. There was no pathology. Pulled back just to the pylorus, looked like there was an ulcer, took a picture of this and then did a biopsy right next to this, pulled back and then saw another area of gastritis in the body of stomach, did another biopsy, had moved the meat to move out of way and then it was stuck up in the fundus, so had a hard time when retroflexing, could not really get a good visualization of the GE junction, pulled back into the GE junction, took a picture and then pulled the scope up the esophagus and out the mouth. Switched gloves and switched scopes, went to the other side, started the colonoscopy. Pushed the scope in and noted a lot of retained liquid fecal material. Pushed all the way to about 150 cm, able to get to the cecum, noted the appendiceal orifice and took a picture, but could not really clean all of this fecal material. I tried suctioning. It just was not coming up because it kept clogging the scope and so at this point, I withdrew the scope, insufflating to look circumferentially starting in the cecum, up the ascending colon to the hepatic flexure, down the transverse colon to the splenic flexure, into the descending colon down to the sigmoid and finally into the rectum. Unfortunately, all throughout here there was retained fecal material that I was unable to suction up. The patient will need a repeat colonoscopy. Retroflexed in rectal vault, saw some minimal internal hemorrhoids, took a picture of this and then removed the scope. The patient tolerated the procedure and was recovered in the endoscopy suite. Job ID: [id number] DocumentID: [id number] Dictated Date: 03/01/2018 09:33:53 Instrument Specialist Date: 03/01/2018 13:13:45 Dictated By: HILARIO RODRIGUEZ DO MTDLars
== END 2018-03-01 09:40 | disposition home or self-care (01) ==
LOC: ENDO 07:01
PROVIDERS: ATTEND Surgery
DX: K25.9 Gastric ulcer, unspecified as acute or chronic, without hemorrhage or perforation (principal); K29.50 Unspecified chronic gastritis without bleeding; D64.9 Anemia, unspecified; K64.8 Other hemorrhoids; Z86.010 Personal history of colon polyps; E66.01 Morbid (severe) obesity due to excess calories; Z68.41 Body mass index [BMI] 40.0-44.9, adult; D68.2 Hereditary deficiency of other clotting factors; Z86.718 Personal history of other venous thrombosis and embolism

== ENCOUNTER → 2018-03-04 | Outpatient (CLI) | payer BC | LOC: WOUNDCARE 09:51 | PROVIDERS: ATTEND Nurse Practitioner | DX: L97.222 Non-pressure chronic ulcer of left calf with fat layer exposed (principal); L97.212 Non-pressure chronic ulcer of right calf with fat layer exposed; L97.312 Non-pressure chronic ulcer of right ankle with fat layer exposed; I87.333 Chronic venous hypertension (idiopathic) with ulcer and inflammation of bilateral lower extremity; L97.522 Non-pressure chronic ulcer of other part of left foot with fat layer exposed; D68.51 Activated protein C resistance; D50.9 Iron deficiency anemia, unspecified; I82.503 Chronic embolism and thrombosis of unspecified deep veins of lower extremity, bilateral | CPT/HCPCS: 11042; 11045 ==

== ENCOUNTER → 2018-03-16 | Outpatient (CLI) | payer BC | LOC: WOUNDCARE 08:13 | PROVIDERS: ATTEND Nurse Practitioner | DX: L97.222 Non-pressure chronic ulcer of left calf with fat layer exposed (principal); L97.212 Non-pressure chronic ulcer of right calf with fat layer exposed; L97.312 Non-pressure chronic ulcer of right ankle with fat layer exposed; I87.333 Chronic venous hypertension (idiopathic) with ulcer and inflammation of bilateral lower extremity; L97.522 Non-pressure chronic ulcer of other part of left foot with fat layer exposed; D68.51 Activated protein C resistance; D50.9 Iron deficiency anemia, unspecified; I82.503 Chronic embolism and thrombosis of unspecified deep veins of lower extremity, bilateral | CPT/HCPCS: 11042; 11045 ==

== ENCOUNTER → 2018-03-22 | Outpatient (CLI) | payer BC | LOC: WOUNDCARE 08:17 | PROVIDERS: ATTEND Surgery | DX: I87.333 Chronic venous hypertension (idiopathic) with ulcer and inflammation of bilateral lower extremity (principal); L97.222 Non-pressure chronic ulcer of left calf with fat layer exposed; L97.212 Non-pressure chronic ulcer of right calf with fat layer exposed; L97.312 Non-pressure chronic ulcer of right ankle with fat layer exposed; L97.522 Non-pressure chronic ulcer of other part of left foot with fat layer exposed; D68.51 Activated protein C resistance; D50.9 Iron deficiency anemia, unspecified; I82.503 Chronic embolism and thrombosis of unspecified deep veins of lower extremity, bilateral | CPT/HCPCS: 11042; 11045 ==

== ENCOUNTER → 2018-03-24 | Outpatient (CLI) | payer BC | LOC: WOUNDCARE 08:00 | PROVIDERS: ATTEND Surgery | DX: I87.333 Chronic venous hypertension (idiopathic) with ulcer and inflammation of bilateral lower extremity (principal); L97.222 Non-pressure chronic ulcer of left calf with fat layer exposed; L97.212 Non-pressure chronic ulcer of right calf with fat layer exposed; L97.312 Non-pressure chronic ulcer of right ankle with fat layer exposed; L97.522 Non-pressure chronic ulcer of other part of left foot with fat layer exposed; D68.51 Activated protein C resistance; D50.9 Iron deficiency anemia, unspecified; I82.503 Chronic embolism and thrombosis of unspecified deep veins of lower extremity, bilateral | CPT/HCPCS: 29581 ==

== ENCOUNTER → 2018-03-24 | Outpatient (CLI) | payer BC | LOC: LAB 15:48 | PROVIDERS: ATTEND Surgery | DX: L97.222 Non-pressure chronic ulcer of left calf with fat layer exposed (principal) | CPT/HCPCS: 36415; 84134 ==

== ENCOUNTER → 2018-03-26 | Outpatient (CLI) | payer BC | LOC: WOUNDCARE 08:10 | PROVIDERS: ATTEND Surgery | DX: L97.222 Non-pressure chronic ulcer of left calf with fat layer exposed (principal); I87.333 Chronic venous hypertension (idiopathic) with ulcer and inflammation of bilateral lower extremity; L97.212 Non-pressure chronic ulcer of right calf with fat layer exposed; L97.312 Non-pressure chronic ulcer of right ankle with fat layer exposed; L97.522 Non-pressure chronic ulcer of other part of left foot with fat layer exposed; D68.51 Activated protein C resistance; D50.9 Iron deficiency anemia, unspecified; I82.503 Chronic embolism and thrombosis of unspecified deep veins of lower extremity, bilateral | CPT/HCPCS: 29581 ==

== ENCOUNTER → 2018-03-29 | Outpatient (CLI) | payer BC | LOC: WOUNDCARE 08:07 | PROVIDERS: ATTEND Surgery | DX: I87.333 Chronic venous hypertension (idiopathic) with ulcer and inflammation of bilateral lower extremity (principal); L97.222 Non-pressure chronic ulcer of left calf with fat layer exposed; L97.212 Non-pressure chronic ulcer of right calf with fat layer exposed; L97.312 Non-pressure chronic ulcer of right ankle with fat layer exposed; L97.522 Non-pressure chronic ulcer of other part of left foot with fat layer exposed; E44.0 Moderate protein-calorie malnutrition; D68.51 Activated protein C resistance; D50.9 Iron deficiency anemia, unspecified; I82.503 Chronic embolism and thrombosis of unspecified deep veins of lower extremity, bilateral | CPT/HCPCS: 11042; 11045 ==

== ENCOUNTER → 2018-04-05 | Outpatient (CLI) | payer BC | LOC: WOUNDCARE 08:01 | PROVIDERS: ATTEND Surgery | DX: I87.333 Chronic venous hypertension (idiopathic) with ulcer and inflammation of bilateral lower extremity (principal); L97.222 Non-pressure chronic ulcer of left calf with fat layer exposed; L97.212 Non-pressure chronic ulcer of right calf with fat layer exposed; L97.312 Non-pressure chronic ulcer of right ankle with fat layer exposed; L97.522 Non-pressure chronic ulcer of other part of left foot with fat layer exposed; D68.51 Activated protein C resistance; D50.9 Iron deficiency anemia, unspecified; I82.503 Chronic embolism and thrombosis of unspecified deep veins of lower extremity, bilateral; E44.0 Moderate protein-calorie malnutrition | CPT/HCPCS: 11042; 11045; 87070; 87075; 87205 ==

== ENCOUNTER → 2018-04-12 | Outpatient (CLI) | payer BC | LOC: WOUNDCARE 08:04 | PROVIDERS: ATTEND Surgery | DX: I87.333 Chronic venous hypertension (idiopathic) with ulcer and inflammation of bilateral lower extremity (principal); L97.222 Non-pressure chronic ulcer of left calf with fat layer exposed; L97.212 Non-pressure chronic ulcer of right calf with fat layer exposed; L97.312 Non-pressure chronic ulcer of right ankle with fat layer exposed; L97.522 Non-pressure chronic ulcer of other part of left foot with fat layer exposed; I82.503 Chronic embolism and thrombosis of unspecified deep veins of lower extremity, bilateral; E44.0 Moderate protein-calorie malnutrition; D68.51 Activated protein C resistance; D50.9 Iron deficiency anemia, unspecified | CPT/HCPCS: 11042; 11045 ==

== ENCOUNTER → 2018-04-12 | Outpatient (CLI) | payer BC | LOC: LAB 09:58 | PROVIDERS: ATTEND Surgery | DX: E44.0 Moderate protein-calorie malnutrition (principal) | CPT/HCPCS: 36415; 82040; 84134 ==

== ENCOUNTER → 2018-04-19 | Outpatient (CLI) | payer BC | LOC: WOUNDCARE 08:02 | PROVIDERS: ATTEND Surgery | DX: I87.333 Chronic venous hypertension (idiopathic) with ulcer and inflammation of bilateral lower extremity (principal); L97.222 Non-pressure chronic ulcer of left calf with fat layer exposed; L97.212 Non-pressure chronic ulcer of right calf with fat layer exposed; L97.312 Non-pressure chronic ulcer of right ankle with fat layer exposed; L97.522 Non-pressure chronic ulcer of other part of left foot with fat layer exposed; I82.503 Chronic embolism and thrombosis of unspecified deep veins of lower extremity, bilateral; E44.0 Moderate protein-calorie malnutrition; D68.51 Activated protein C resistance; D50.9 Iron deficiency anemia, unspecified | CPT/HCPCS: 11042; 11045 ==

== ENCOUNTER 2018-04-26 09:35 | Outpatient (RCR) | payer BC ==
[2018-02-08 11:35] LABS: BASOPHILS % (AUTO) 1 % (0-10); EOSINOPHILS # (AUTO) 0.3 10^3/uL (0.0-0.3); EOSINOPHILS % (AUTO) 4 % (0-10); HEMATOCRIT 30 % (40-54); LYMPHOCYTES # (AUTO) 1.3 X 10^3 (1.0-4.0); LYMPHOCYTES % (AUTO) 23 % (12-44); MEAN CORPUSCULAR HEMOGLOBIN 22 PG (25-34); MEAN CORPUSCULAR HGB CONC 30 G/DL (32-36); MEAN CORPUSCULAR VOLUME 72 FL (80-99); MEAN PLATELET VOLUME 8.9 FL (7.4-10.4); MONOCYTES # (AUTO) 0.5 X 10^3 (0.0-1.0); MONOCYTES % (AUTO) 9 % (0-12); NEUTROPHILS # (AUTO) 3.7 X 10^3 (1.8-7.8); NEUTROPHILS % (AUTO) 63 % (42-75); PLATELET COUNT 299 10^3/uL (130-400); RED CELL DISTRIBUTION WIDTH 17.1 % (10.0-14.5); WHITE BLOOD COUNT 5.9 10^3/uL (4.3-11.0)
[2018-02-08 11:54] LABS: ALANINE AMINOTRANSFERASE 17 U/L (0-55); ALBUMIN 2.9 GM/DL (3.2-4.5); ALKALINE PHOSPHATASE 135 U/L (40-136); BILIRUBIN,TOTAL 0.1 MG/DL (0.1-1.0); BUN/CREATININE RATIO 17; CALCIUM 8.4 MG/DL (8.5-10.1); CARBON DIOXIDE 24 MMOL/L (21-32); CHLORIDE 107 MMOL/L (98-107); CREATININE SERUM 1.18 MG/DL (0.60-1.30); GFR ESTIMATED > 60; GLUCOSE 96 MG/DL (70-105); POTASSIUM 4.9 MMOL/L (3.6-5.0); SODIUM 136 MMOL/L (135-145); TOTAL PROTEIN 6.6 GM/DL (6.4-8.2)
[2018-03-15 14:00] LABS: BASOPHILS % (AUTO) 1 % (0-10); EOSINOPHILS # (AUTO) 0.2 10^3/uL (0.0-0.3); EOSINOPHILS % (AUTO) 4 % (0-10); HEMATOCRIT 30 % (40-54); LYMPHOCYTES # (AUTO) 1.6 X 10^3 (1.0-4.0); LYMPHOCYTES % (AUTO) 26 % (12-44); MEAN CORPUSCULAR HEMOGLOBIN 21 PG (25-34); MEAN CORPUSCULAR HGB CONC 30 G/DL (32-36); MEAN CORPUSCULAR VOLUME 71 FL (80-99); MEAN PLATELET VOLUME 9.1 FL (7.4-10.4); MONOCYTES # (AUTO) 0.8 X 10^3 (0.0-1.0); MONOCYTES % (AUTO) 13 % (0-12); NEUTROPHILS # (AUTO) 3.4 X 10^3 (1.8-7.8); NEUTROPHILS % (AUTO) 57 % (42-75); PLATELET COUNT 295 10^3/uL (130-400); RED CELL DISTRIBUTION WIDTH 17.1 % (10.0-14.5); WHITE BLOOD COUNT 5.9 10^3/uL (4.3-11.0)
[2018-03-15 14:34] LABS: ALBUMIN 3.1 GM/DL (3.2-4.5); BILIRUBIN,TOTAL 0.2 MG/DL (0.1-1.0); CALCIUM 8.5 MG/DL (8.5-10.1); CREATININE SERUM 1.27 MG/DL (0.60-1.30); POTASSIUM 4.6 MMOL/L (3.6-5.0); TOTAL PROTEIN 7.2 GM/DL (6.4-8.2)
[2018-04-12 10:38] LABS: BASOPHILS % (AUTO) 1 % (0-10); EOSINOPHILS # (AUTO) 0.2 10^3/uL (0.0-0.3); EOSINOPHILS % (AUTO) 3 % (0-10); HEMATOCRIT 31 % (40-54); HEMOGLOBIN 9.1 G/DL (13.3-17.7); LYMPHOCYTES # (AUTO) 1.2 X 10^3 (1.0-4.0); LYMPHOCYTES % (AUTO) 19 % (12-44); MEAN CORPUSCULAR HEMOGLOBIN 21 PG (25-34); MEAN CORPUSCULAR HGB CONC 29 G/DL (32-36); MEAN CORPUSCULAR VOLUME 70 FL (80-99); MEAN PLATELET VOLUME 9.1 FL (7.4-10.4); MONOCYTES # (AUTO) 0.6 X 10^3 (0.0-1.0); MONOCYTES % (AUTO) 10 % (0-12); NEUTROPHILS # (AUTO) 4.4 X 10^3 (1.8-7.8); NEUTROPHILS % (AUTO) 68 % (42-75); PLATELET COUNT 370 10^3/uL (130-400); RED CELL DISTRIBUTION WIDTH 18.3 % (10.0-14.5); WHITE BLOOD COUNT 6.5 10^3/uL (4.3-11.0)
[~2018-04-26 09:35] MED LIST changes: +FERRIC CARBOXYMALTOSE (CANCER) 750 MG in NS (IVPB) CANCER CENTER 250 ML IV SCH
== END 2018-05-09 | disposition home or self-care (01) ==
LOC: ONC 09:35
PROVIDERS: ATTEND Internal Medicine Hematology & Oncology
DX: D68.51 Activated protein C resistance (principal); D50.0 Iron deficiency anemia secondary to blood loss (chronic); I82.503 Chronic embolism and thrombosis of unspecified deep veins of lower extremity, bilateral; K29.70 Gastritis, unspecified, without bleeding; E66.01 Morbid (severe) obesity due to excess calories; Z68.39 Body mass index [BMI] 39.0-39.9, adult; Z79.01 Long term (current) use of anticoagulants; Z79.82 Long term (current) use of aspirin; Z79.899 Other long term (current) drug therapy
CPT/HCPCS: 36415; 80053; 82728; 83540; 85025; 96365; 99213; 99214

== ENCOUNTER → 2018-04-26 | Outpatient (CLI) | payer BC | LOC: WOUNDCARE 08:12 | PROVIDERS: ATTEND Surgery | DX: I87.333 Chronic venous hypertension (idiopathic) with ulcer and inflammation of bilateral lower extremity (principal); L97.222 Non-pressure chronic ulcer of left calf with fat layer exposed; L97.212 Non-pressure chronic ulcer of right calf with fat layer exposed; L97.312 Non-pressure chronic ulcer of right ankle with fat layer exposed; L97.522 Non-pressure chronic ulcer of other part of left foot with fat layer exposed; I82.503 Chronic embolism and thrombosis of unspecified deep veins of lower extremity, bilateral; E44.0 Moderate protein-calorie malnutrition; D68.51 Activated protein C resistance; D50.9 Iron deficiency anemia, unspecified | CPT/HCPCS: 11042; 11045 ==

== ENCOUNTER → 2018-05-05 | Outpatient (CLI) | payer BC ==
[~2018-05-05] MED LIST changes: -FERRIC CARBOXYMALTOSE (CANCER) 750 MG in NS (IVPB) CANCER CENTER 250 ML IV SCH
== END ==
LOC: WOUNDCARE 09:26
PROVIDERS: ATTEND Surgery
DX: I87.333 Chronic venous hypertension (idiopathic) with ulcer and inflammation of bilateral lower extremity (principal); L97.222 Non-pressure chronic ulcer of left calf with fat layer exposed; L97.212 Non-pressure chronic ulcer of right calf with fat layer exposed; L97.312 Non-pressure chronic ulcer of right ankle with fat layer exposed; L97.522 Non-pressure chronic ulcer of other part of left foot with fat layer exposed; E44.0 Moderate protein-calorie malnutrition; D68.51 Activated protein C resistance; D50.9 Iron deficiency anemia, unspecified; Z86.718 Personal history of other venous thrombosis and embolism
CPT/HCPCS: 29581

== ENCOUNTER → 2018-05-10 | Outpatient (CLI) | payer BC | LOC: WOUNDCARE 08:15 | PROVIDERS: ATTEND Surgery | DX: I87.333 Chronic venous hypertension (idiopathic) with ulcer and inflammation of bilateral lower extremity (principal); L97.222 Non-pressure chronic ulcer of left calf with fat layer exposed; L97.212 Non-pressure chronic ulcer of right calf with fat layer exposed; L97.312 Non-pressure chronic ulcer of right ankle with fat layer exposed; L97.522 Non-pressure chronic ulcer of other part of left foot with fat layer exposed; E44.0 Moderate protein-calorie malnutrition; D68.51 Activated protein C resistance; D50.9 Iron deficiency anemia, unspecified; Z86.718 Personal history of other venous thrombosis and embolism | CPT/HCPCS: 11042; 11045 ==

== ENCOUNTER → 2018-05-17 | Outpatient (CLI) | payer BC | LOC: WOUNDCARE 08:21 | PROVIDERS: ATTEND Surgery | DX: I87.333 Chronic venous hypertension (idiopathic) with ulcer and inflammation of bilateral lower extremity (principal); L97.222 Non-pressure chronic ulcer of left calf with fat layer exposed; L97.212 Non-pressure chronic ulcer of right calf with fat layer exposed; L97.312 Non-pressure chronic ulcer of right ankle with fat layer exposed; L97.522 Non-pressure chronic ulcer of other part of left foot with fat layer exposed; D68.51 Activated protein C resistance; E44.0 Moderate protein-calorie malnutrition; D50.9 Iron deficiency anemia, unspecified; I82.503 Chronic embolism and thrombosis of unspecified deep veins of lower extremity, bilateral | CPT/HCPCS: 11042; 11045 ==

== ENCOUNTER → 2018-05-24 | Outpatient (CLI) | payer BC | LOC: WOUNDCARE 08:18 | PROVIDERS: ATTEND Surgery | DX: I87.333 Chronic venous hypertension (idiopathic) with ulcer and inflammation of bilateral lower extremity (principal); L97.222 Non-pressure chronic ulcer of left calf with fat layer exposed; L97.212 Non-pressure chronic ulcer of right calf with fat layer exposed; L97.312 Non-pressure chronic ulcer of right ankle with fat layer exposed; L97.522 Non-pressure chronic ulcer of other part of left foot with fat layer exposed; D68.51 Activated protein C resistance; E44.0 Moderate protein-calorie malnutrition; D50.9 Iron deficiency anemia, unspecified; I82.503 Chronic embolism and thrombosis of unspecified deep veins of lower extremity, bilateral | CPT/HCPCS: 11042; 11045 ==

== ENCOUNTER → 2018-05-26 | Outpatient (CLI) | payer BC | LOC: WOUNDCARE 10:29 | PROVIDERS: ATTEND Surgery | DX: I87.333 Chronic venous hypertension (idiopathic) with ulcer and inflammation of bilateral lower extremity (principal); L97.222 Non-pressure chronic ulcer of left calf with fat layer exposed; L97.212 Non-pressure chronic ulcer of right calf with fat layer exposed; L97.312 Non-pressure chronic ulcer of right ankle with fat layer exposed; L97.522 Non-pressure chronic ulcer of other part of left foot with fat layer exposed; D68.51 Activated protein C resistance; E44.0 Moderate protein-calorie malnutrition; D50.9 Iron deficiency anemia, unspecified; Z86.718 Personal history of other venous thrombosis and embolism | CPT/HCPCS: 29581 ==

== ENCOUNTER → 2018-05-31 | Outpatient (CLI) | payer BC | LOC: WOUNDCARE 08:21 | PROVIDERS: ATTEND Surgery | DX: I87.333 Chronic venous hypertension (idiopathic) with ulcer and inflammation of bilateral lower extremity (principal); L97.222 Non-pressure chronic ulcer of left calf with fat layer exposed; L97.212 Non-pressure chronic ulcer of right calf with fat layer exposed; L97.312 Non-pressure chronic ulcer of right ankle with fat layer exposed; L97.522 Non-pressure chronic ulcer of other part of left foot with fat layer exposed; D68.51 Activated protein C resistance; E44.0 Moderate protein-calorie malnutrition; Z86.718 Personal history of other venous thrombosis and embolism | CPT/HCPCS: 11042; 11045 ==

== ENCOUNTER → 2018-06-07 | Outpatient (CLI) | payer BC | LOC: WOUNDCARE 08:12 | PROVIDERS: ATTEND Surgery | DX: I87.333 Chronic venous hypertension (idiopathic) with ulcer and inflammation of bilateral lower extremity (principal); L97.222 Non-pressure chronic ulcer of left calf with fat layer exposed; L97.212 Non-pressure chronic ulcer of right calf with fat layer exposed; L97.312 Non-pressure chronic ulcer of right ankle with fat layer exposed; L97.522 Non-pressure chronic ulcer of other part of left foot with fat layer exposed; D68.51 Activated protein C resistance; E44.0 Moderate protein-calorie malnutrition; Z86.718 Personal history of other venous thrombosis and embolism | CPT/HCPCS: 11042; 11045; 87070; 87075; 87077; 87205 ==

== ENCOUNTER → 2018-06-09 | Outpatient (CLI) | payer BC | LOC: WOUNDCARE 08:13 | PROVIDERS: ATTEND Surgery | DX: I87.333 Chronic venous hypertension (idiopathic) with ulcer and inflammation of bilateral lower extremity (principal); L97.222 Non-pressure chronic ulcer of left calf with fat layer exposed; L97.212 Non-pressure chronic ulcer of right calf with fat layer exposed; L97.312 Non-pressure chronic ulcer of right ankle with fat layer exposed; L97.522 Non-pressure chronic ulcer of other part of left foot with fat layer exposed; D68.51 Activated protein C resistance; E44.0 Moderate protein-calorie malnutrition; Z86.718 Personal history of other venous thrombosis and embolism | CPT/HCPCS: 29581 ==

== ENCOUNTER → 2018-06-14 | Outpatient (CLI) | payer BC | LOC: WOUNDCARE 08:19 | PROVIDERS: ATTEND Surgery | DX: I87.333 Chronic venous hypertension (idiopathic) with ulcer and inflammation of bilateral lower extremity (principal); L97.222 Non-pressure chronic ulcer of left calf with fat layer exposed; L97.212 Non-pressure chronic ulcer of right calf with fat layer exposed; L97.312 Non-pressure chronic ulcer of right ankle with fat layer exposed; L97.522 Non-pressure chronic ulcer of other part of left foot with fat layer exposed; D68.51 Activated protein C resistance; E44.0 Moderate protein-calorie malnutrition; Z86.718 Personal history of other venous thrombosis and embolism | CPT/HCPCS: 11042; 11045 ==

== ENCOUNTER → 2018-06-17 | Outpatient (CLI) | payer BC | LOC: WOUNDCARE 08:17 | PROVIDERS: ATTEND Nurse Practitioner | DX: I87.333 Chronic venous hypertension (idiopathic) with ulcer and inflammation of bilateral lower extremity (principal); L97.222 Non-pressure chronic ulcer of left calf with fat layer exposed; L97.212 Non-pressure chronic ulcer of right calf with fat layer exposed; L97.312 Non-pressure chronic ulcer of right ankle with fat layer exposed; L97.522 Non-pressure chronic ulcer of other part of left foot with fat layer exposed; D68.51 Activated protein C resistance; E44.0 Moderate protein-calorie malnutrition; Z86.718 Personal history of other venous thrombosis and embolism | CPT/HCPCS: 29581 ==

== ENCOUNTER → 2018-06-21 | Outpatient (CLI) | payer BC | LOC: WOUNDCARE 08:20 | PROVIDERS: ATTEND Surgery | DX: I87.333 Chronic venous hypertension (idiopathic) with ulcer and inflammation of bilateral lower extremity (principal); L97.222 Non-pressure chronic ulcer of left calf with fat layer exposed; L97.212 Non-pressure chronic ulcer of right calf with fat layer exposed; L97.312 Non-pressure chronic ulcer of right ankle with fat layer exposed; L97.522 Non-pressure chronic ulcer of other part of left foot with fat layer exposed; D68.51 Activated protein C resistance; E44.0 Moderate protein-calorie malnutrition; Z86.718 Personal history of other venous thrombosis and embolism | CPT/HCPCS: 11042; 11045 ==

== ENCOUNTER → 2018-06-24 | Outpatient (CLI) | payer BC | LOC: WOUNDCARE 08:17 | PROVIDERS: ATTEND Nurse Practitioner | DX: I87.333 Chronic venous hypertension (idiopathic) with ulcer and inflammation of bilateral lower extremity (principal); L97.222 Non-pressure chronic ulcer of left calf with fat layer exposed; L97.212 Non-pressure chronic ulcer of right calf with fat layer exposed; L97.312 Non-pressure chronic ulcer of right ankle with fat layer exposed; L97.522 Non-pressure chronic ulcer of other part of left foot with fat layer exposed; D68.51 Activated protein C resistance; E44.0 Moderate protein-calorie malnutrition; Z86.718 Personal history of other venous thrombosis and embolism | CPT/HCPCS: 29581 ==

== ENCOUNTER → 2018-06-28 | Outpatient (CLI) | payer BC | LOC: WOUNDCARE 08:21 | PROVIDERS: ATTEND Surgery | DX: I87.333 Chronic venous hypertension (idiopathic) with ulcer and inflammation of bilateral lower extremity (principal); L97.222 Non-pressure chronic ulcer of left calf with fat layer exposed; L97.212 Non-pressure chronic ulcer of right calf with fat layer exposed; L97.312 Non-pressure chronic ulcer of right ankle with fat layer exposed; L97.522 Non-pressure chronic ulcer of other part of left foot with fat layer exposed; D68.51 Activated protein C resistance; E44.0 Moderate protein-calorie malnutrition; Z86.718 Personal history of other venous thrombosis and embolism | CPT/HCPCS: 11042; 11045 ==

== ENCOUNTER → 2018-07-02 | Outpatient (CLI) | payer BC | LOC: LAB 11:00 | PROVIDERS: ATTEND Surgery | DX: I87.333 Chronic venous hypertension (idiopathic) with ulcer and inflammation of bilateral lower extremity (principal); L97.222 Non-pressure chronic ulcer of left calf with fat layer exposed; L97.212 Non-pressure chronic ulcer of right calf with fat layer exposed; L97.312 Non-pressure chronic ulcer of right ankle with fat layer exposed; L97.522 Non-pressure chronic ulcer of other part of left foot with fat layer exposed; D68.51 Activated protein C resistance; E44.0 Moderate protein-calorie malnutrition; I82.503 Chronic embolism and thrombosis of unspecified deep veins of lower extremity, bilateral | CPT/HCPCS: 36415; 85379 ==

== ENCOUNTER → 2018-07-02 | Outpatient (CLI) | payer BC | LOC: WOUNDCARE 09:18 | PROVIDERS: ATTEND Surgery | DX: I87.333 Chronic venous hypertension (idiopathic) with ulcer and inflammation of bilateral lower extremity (principal); L97.222 Non-pressure chronic ulcer of left calf with fat layer exposed; L97.212 Non-pressure chronic ulcer of right calf with fat layer exposed; L97.312 Non-pressure chronic ulcer of right ankle with fat layer exposed; L97.522 Non-pressure chronic ulcer of other part of left foot with fat layer exposed; D68.51 Activated protein C resistance; E44.0 Moderate protein-calorie malnutrition; Z86.718 Personal history of other venous thrombosis and embolism | CPT/HCPCS: 11042; 11045 ==

== ENCOUNTER → 2018-07-05 | Outpatient (CLI) | payer BC | LOC: WOUNDCARE 08:21 | PROVIDERS: ATTEND Surgery | DX: I87.333 Chronic venous hypertension (idiopathic) with ulcer and inflammation of bilateral lower extremity (principal); L97.222 Non-pressure chronic ulcer of left calf with fat layer exposed; L97.212 Non-pressure chronic ulcer of right calf with fat layer exposed; L97.312 Non-pressure chronic ulcer of right ankle with fat layer exposed; L97.522 Non-pressure chronic ulcer of other part of left foot with fat layer exposed; D68.51 Activated protein C resistance; E44.0 Moderate protein-calorie malnutrition; Z86.718 Personal history of other venous thrombosis and embolism | CPT/HCPCS: 11042; 11106 ==

== ENCOUNTER → 2018-07-09 | Outpatient (CLI) | payer BC | LOC: WOUNDCARE 08:18 | PROVIDERS: ATTEND Surgery | DX: I87.333 Chronic venous hypertension (idiopathic) with ulcer and inflammation of bilateral lower extremity (principal); L97.222 Non-pressure chronic ulcer of left calf with fat layer exposed; L97.212 Non-pressure chronic ulcer of right calf with fat layer exposed; L97.312 Non-pressure chronic ulcer of right ankle with fat layer exposed; L97.522 Non-pressure chronic ulcer of other part of left foot with fat layer exposed; D68.51 Activated protein C resistance; E44.0 Moderate protein-calorie malnutrition; Z86.718 Personal history of other venous thrombosis and embolism | CPT/HCPCS: 11042; 11045 ==

== ENCOUNTER → 2018-07-12 | Outpatient (CLI) | payer BC | LOC: WOUNDCARE 08:18 | PROVIDERS: ATTEND Surgery | DX: I87.333 Chronic venous hypertension (idiopathic) with ulcer and inflammation of bilateral lower extremity (principal); L97.222 Non-pressure chronic ulcer of left calf with fat layer exposed; L97.212 Non-pressure chronic ulcer of right calf with fat layer exposed; L97.312 Non-pressure chronic ulcer of right ankle with fat layer exposed; L97.522 Non-pressure chronic ulcer of other part of left foot with fat layer exposed; D68.51 Activated protein C resistance; E44.0 Moderate protein-calorie malnutrition; R19.5 Other fecal abnormalities; Z86.718 Personal history of other venous thrombosis and embolism | CPT/HCPCS: 11042; 11045 ==

== ENCOUNTER → 2018-07-16 | Outpatient (CLI) | payer BC | LOC: WOUNDCARE 08:18 | PROVIDERS: ATTEND Nurse Practitioner | DX: L97.222 Non-pressure chronic ulcer of left calf with fat layer exposed (principal); L97.212 Non-pressure chronic ulcer of right calf with fat layer exposed; L97.312 Non-pressure chronic ulcer of right ankle with fat layer exposed; I87.333 Chronic venous hypertension (idiopathic) with ulcer and inflammation of bilateral lower extremity; D68.51 Activated protein C resistance; L97.522 Non-pressure chronic ulcer of other part of left foot with fat layer exposed; E44.0 Moderate protein-calorie malnutrition; I82.503 Chronic embolism and thrombosis of unspecified deep veins of lower extremity, bilateral; R19.5 Other fecal abnormalities | CPT/HCPCS: 11042; 11045; 29581 ==

== ENCOUNTER → 2018-07-19 | Outpatient (CLI) | payer BC | LOC: WOUNDCARE 08:13 | PROVIDERS: ATTEND Surgery | DX: I87.333 Chronic venous hypertension (idiopathic) with ulcer and inflammation of bilateral lower extremity (principal); L97.222 Non-pressure chronic ulcer of left calf with fat layer exposed; L97.212 Non-pressure chronic ulcer of right calf with fat layer exposed; L97.312 Non-pressure chronic ulcer of right ankle with fat layer exposed; L97.522 Non-pressure chronic ulcer of other part of left foot with fat layer exposed; D68.51 Activated protein C resistance; E44.0 Moderate protein-calorie malnutrition; Z86.718 Personal history of other venous thrombosis and embolism | CPT/HCPCS: 11042; 11045 ==

== ENCOUNTER → 2018-07-23 | Outpatient (CLI) | payer BC | LOC: WOUNDCARE 08:17 | PROVIDERS: ATTEND Surgery | DX: I87.333 Chronic venous hypertension (idiopathic) with ulcer and inflammation of bilateral lower extremity (principal); L97.222 Non-pressure chronic ulcer of left calf with fat layer exposed; L97.212 Non-pressure chronic ulcer of right calf with fat layer exposed; L97.312 Non-pressure chronic ulcer of right ankle with fat layer exposed; L97.522 Non-pressure chronic ulcer of other part of left foot with fat layer exposed; D68.51 Activated protein C resistance; E44.0 Moderate protein-calorie malnutrition; Z86.718 Personal history of other venous thrombosis and embolism | CPT/HCPCS: 11042; 11045; 29581 ==

== ENCOUNTER → 2018-07-26 | Outpatient (CLI) | payer BC | LOC: WOUNDCARE 08:19 | PROVIDERS: ATTEND Surgery | DX: I87.333 Chronic venous hypertension (idiopathic) with ulcer and inflammation of bilateral lower extremity (principal); L97.222 Non-pressure chronic ulcer of left calf with fat layer exposed; L97.212 Non-pressure chronic ulcer of right calf with fat layer exposed; L97.312 Non-pressure chronic ulcer of right ankle with fat layer exposed; L97.522 Non-pressure chronic ulcer of other part of left foot with fat layer exposed; D68.51 Activated protein C resistance; E44.0 Moderate protein-calorie malnutrition; Z86.718 Personal history of other venous thrombosis and embolism | CPT/HCPCS: 11042; 11045 ==

== ENCOUNTER → 2018-07-26 | Outpatient (CLI) | payer BC | LOC: LAB 09:46 | PROVIDERS: ATTEND Surgery | DX: E44.0 Moderate protein-calorie malnutrition (principal) | CPT/HCPCS: 36415; 84134 ==

== ENCOUNTER 2018-07-29 09:36 | Outpatient (RCR) | payer BC ==
[2018-05-17 10:27] LABS: BASOPHILS % (AUTO) 1 % (0-10); EOSINOPHILS # (AUTO) 0.2 10^3/uL (0.0-0.3); EOSINOPHILS % (AUTO) 3 % (0-10); HEMATOCRIT 36 % (40-54); HEMOGLOBIN 11.1 G/DL (13.3-17.7); LYMPHOCYTES # (AUTO) 1.3 X 10^3 (1.0-4.0); LYMPHOCYTES % (AUTO) 20 % (12-44); MEAN CORPUSCULAR HEMOGLOBIN 24 PG (25-34); MEAN CORPUSCULAR HGB CONC 31 G/DL (32-36); MEAN CORPUSCULAR VOLUME 79 FL (80-99); MEAN PLATELET VOLUME 9.8 FL (7.4-10.4); MONOCYTES # (AUTO) 0.7 X 10^3 (0.0-1.0); MONOCYTES % (AUTO) 12 % (0-12); NEUTROPHILS # (AUTO) 4.1 X 10^3 (1.8-7.8); NEUTROPHILS % (AUTO) 65 % (42-75); PLATELET COUNT 282 10^3/uL (130-400); WHITE BLOOD COUNT 6.3 10^3/uL (4.3-11.0)
[2018-05-17 10:53] LABS: ALANINE AMINOTRANSFERASE 18 U/L (0-55); ALBUMIN 3.4 GM/DL (3.2-4.5); ALKALINE PHOSPHATASE 109 U/L (40-136); BILIRUBIN,TOTAL 0.3 MG/DL (0.1-1.0); BUN/CREATININE RATIO 20; CALCIUM 8.8 MG/DL (8.5-10.1); CARBON DIOXIDE 24 MMOL/L (21-32); CHLORIDE 108 MMOL/L (98-107); CREATININE SERUM 1.16 MG/DL (0.60-1.30); GFR ESTIMATED > 60; POTASSIUM 4.6 MMOL/L (3.6-5.0); SODIUM 139 MMOL/L (135-145); TOTAL PROTEIN 6.8 GM/DL (6.4-8.2)
[2018-05-17 11:09] LABS: GLUCOSE 58 MG/DL (70-105)
[2018-06-14 10:32] LABS: BASOPHILS % (AUTO) 0 % (0-10); EOSINOPHILS # (AUTO) 0.1 10^3/uL (0.0-0.3); EOSINOPHILS % (AUTO) 2 % (0-10); HEMATOCRIT 29 % (40-54); HEMOGLOBIN 9.1 G/DL (13.3-17.7); LYMPHOCYTES # (AUTO) 0.9 X 10^3 (1.0-4.0); LYMPHOCYTES % (AUTO) 20 % (12-44); MEAN CORPUSCULAR HEMOGLOBIN 25 PG (25-34); MEAN CORPUSCULAR HGB CONC 31 G/DL (32-36); MEAN CORPUSCULAR VOLUME 79 FL (80-99); MEAN PLATELET VOLUME 8.7 FL (7.4-10.4); MONOCYTES # (AUTO) 0.7 X 10^3 (0.0-1.0); MONOCYTES % (AUTO) 16 % (0-12); NEUTROPHILS # (AUTO) 2.9 X 10^3 (1.8-7.8); NEUTROPHILS % (AUTO) 63 % (42-75); PLATELET COUNT 347 10^3/uL (130-400); RED CELL DISTRIBUTION WIDTH 22.6 % (10.0-14.5); WHITE BLOOD COUNT 4.6 10^3/uL (4.3-11.0)
[2018-06-14 10:50] LABS: ALANINE AMINOTRANSFERASE 19 U/L (0-55); ALBUMIN 2.5 GM/DL (3.2-4.5); ALKALINE PHOSPHATASE 106 U/L (40-136); BILIRUBIN,TOTAL 0.2 MG/DL (0.1-1.0); BUN/CREATININE RATIO 16; CALCIUM 8.2 MG/DL (8.5-10.1); CARBON DIOXIDE 25 MMOL/L (21-32); CHLORIDE 107 MMOL/L (98-107); CREATININE SERUM 1.14 MG/DL (0.60-1.30); GFR ESTIMATED > 60; GLUCOSE 83 MG/DL (70-105); POTASSIUM 4.2 MMOL/L (3.6-5.0); SODIUM 135 MMOL/L (135-145); TOTAL PROTEIN 5.4 GM/DL (6.4-8.2)
[2018-07-26 10:25] LABS: BASOPHILS % (AUTO) 1 % (0-10); EOSINOPHILS # (AUTO) 0.1 10^3/uL (0.0-0.3); EOSINOPHILS % (AUTO) 1 % (0-10); HEMATOCRIT 37 % (40-54); HEMOGLOBIN 11.6 G/DL (13.3-17.7); LYMPHOCYTES # (AUTO) 1.1 X 10^3 (1.0-4.0); LYMPHOCYTES % (AUTO) 22 % (12-44); MEAN CORPUSCULAR HEMOGLOBIN 27 PG (25-34); MEAN CORPUSCULAR HGB CONC 32 G/DL (32-36); MEAN CORPUSCULAR VOLUME 85 FL (80-99); MEAN PLATELET VOLUME 9.8 FL (7.4-10.4); MONOCYTES # (AUTO) 0.5 X 10^3 (0.0-1.0); MONOCYTES % (AUTO) 10 % (0-12); NEUTROPHILS # (AUTO) 3.3 X 10^3 (1.8-7.8); NEUTROPHILS % (AUTO) 67 % (42-75); PLATELET COUNT 300 10^3/uL (130-400); RED CELL DISTRIBUTION WIDTH 17.9 % (10.0-14.5); WHITE BLOOD COUNT 4.9 10^3/uL (4.3-11.0)
[2018-07-26 10:55] LABS: ALANINE AMINOTRANSFERASE 21 U/L (0-55); ALBUMIN 2.9 GM/DL (3.2-4.5); ALKALINE PHOSPHATASE 125 U/L (40-136); BILIRUBIN,TOTAL 0.2 MG/DL (0.1-1.0); BUN/CREATININE RATIO 21; CALCIUM 8.4 MG/DL (8.5-10.1); CARBON DIOXIDE 21 MMOL/L (21-32); CHLORIDE 108 MMOL/L (98-107); CREATININE SERUM 1.07 MG/DL (0.60-1.30); GFR ESTIMATED > 60; GLUCOSE 95 MG/DL (70-105); POTASSIUM 4.7 MMOL/L (3.6-5.0); SODIUM 136 MMOL/L (135-145); TOTAL PROTEIN 6.5 GM/DL (6.4-8.2)
[~2018-07-29 09:36] MED LIST changes: +FERRIC CARBOXYMALTOSE (CANCER) 750 MG in NS (IVPB) CANCER CENTER 250 ML IV SCH
[2018-08-06] MEDS ORDERED: APIX2.5T PO (12:35)
[2018-08-06] MEDS ORDERED: PANT40TA3 PO (12:35)
[2018-08-06] MEDS ORDERED: OXYC10TA7 PO (12:35)
[2018-08-06] MEDS ORDERED: LEVO750T9 PO (12:35)
[2018-08-06] MEDS ORDERED: AMOX-358 PO (12:35)
[2018-08-06] MEDS ORDERED: METR500T PO (12:35)
== END 2018-08-15 | disposition home or self-care (01) ==
LOC: ONC 09:36
PROVIDERS: ATTEND Internal Medicine Hematology & Oncology
DX: D68.51 Activated protein C resistance (principal); D50.0 Iron deficiency anemia secondary to blood loss (chronic); I82.503 Chronic embolism and thrombosis of unspecified deep veins of lower extremity, bilateral; K29.70 Gastritis, unspecified, without bleeding; E66.01 Morbid (severe) obesity due to excess calories; Z68.39 Body mass index [BMI] 39.0-39.9, adult; Z79.01 Long term (current) use of anticoagulants; Z79.82 Long term (current) use of aspirin; Z79.899 Other long term (current) drug therapy
CPT/HCPCS: 36415; 80053; 82232; 82728; 82784; 83540; 83615; 83883; 84155; 84165; 85025; 96365; 99213

== ENCOUNTER → 2018-07-30 | Outpatient (CLI) | payer BC ==
[~2018-07-30] MED LIST changes: -FERRIC CARBOXYMALTOSE (CANCER) 750 MG in NS (IVPB) CANCER CENTER 250 ML IV SCH
== END ==
LOC: WOUNDCARE 08:13
PROVIDERS: ATTEND Surgery
DX: L97.222 Non-pressure chronic ulcer of left calf with fat layer exposed (principal); L97.212 Non-pressure chronic ulcer of right calf with fat layer exposed; L97.312 Non-pressure chronic ulcer of right ankle with fat layer exposed; I87.333 Chronic venous hypertension (idiopathic) with ulcer and inflammation of bilateral lower extremity; D68.51 Activated protein C resistance; L97.522 Non-pressure chronic ulcer of other part of left foot with fat layer exposed; E44.0 Moderate protein-calorie malnutrition; I82.503 Chronic embolism and thrombosis of unspecified deep veins of lower extremity, bilateral
CPT/HCPCS: 11042; 11045

== ENCOUNTER 2018-08-06 11:37 | Outpatient (CLI) | payer BC ==
[~2018-08-06] VITALS: Ht 193 cm; Wt 132.4 kg
[~2018-08-06 11:37] MED LIST changes: -AMOX-358 PO; -APIX2.5T PO; -LEVO750T9 PO; -METR500T PO; -OXYC10TA7 PO; -PANT40TA3 PO
[2018-08-06] MEDS ORDERED: PANT40TA3 PO (12:35)
[2018-08-06] MEDS ORDERED: METR500T PO (12:35)
[2018-08-06] MEDS ORDERED: OXYC10TA7 PO (12:35)
[2018-08-06] MEDS ORDERED: AMOX-358 PO (12:35)
[2018-08-06] MEDS ORDERED: LEVO750T9 PO (12:35)
[2018-08-06] MEDS ORDERED: APIX2.5T PO (12:35)
== END 2018-08-06 12:36 | disposition home or self-care (01) ==
LOC: PREOP 11:37
PROVIDERS: ATTEND Surgery
DX: Z01.818 Encounter for other preprocedural examination (principal)

== ENCOUNTER → 2018-08-06 | Outpatient (CLI) | payer BC ==
[~2018-08-06] MED LIST changes: +AMOX-358 PO; +APIX2.5T PO; +LEVO750T9 PO; +METR500T PO; +OXYC10TA7 PO; +PANT40TA3 PO
== END ==
LOC: WOUNDCARE 08:13
PROVIDERS: ATTEND Surgery
DX: I87.333 Chronic venous hypertension (idiopathic) with ulcer and inflammation of bilateral lower extremity (principal); L97.222 Non-pressure chronic ulcer of left calf with fat layer exposed; L97.212 Non-pressure chronic ulcer of right calf with fat layer exposed; L97.312 Non-pressure chronic ulcer of right ankle with fat layer exposed; D68.51 Activated protein C resistance; L97.522 Non-pressure chronic ulcer of other part of left foot with fat layer exposed; E44.0 Moderate protein-calorie malnutrition; I82.503 Chronic embolism and thrombosis of unspecified deep veins of lower extremity, bilateral
CPT/HCPCS: 11042; 11045

== ENCOUNTER 2018-08-09 11:58 | Day surgery (SDC) | payer BC ==
[~2018-08-09] VITALS: Ht 193 cm; Wt 132.4 kg
[~2018-08-09 11:58] MED LIST changes: +AMOX-358 PO; +APIX2.5T PO; +LEVO750T9 PO; +METR500T PO; +OXYC10TA7 PO; +PANT40TA3 PO
[2018-08-09] MEDS ORDERED: LACTATED RINGERS 1,000 ML IV ONE (12:01)
[2018-08-09] MEDS ORDERED: LACTATED RINGERS 1,000 ML IV STA (12:33)
[2018-08-09 12:35] VITALS: BP 128/71
--- NOTE | 2018-08-09 12:35 | Progress Note-Pre Operative ---
Pre-Operative Progress Note H&P Reviewed The H&P was reviewed, patient examined and no changes noted. Time Seen by Provider: 12:32 Date H&P Reviewed: Aug 09, 2018 Time H&P Reviewed: 12:33 Pre-Operative Diagnosis: Hx of gastric ulcer, hx of colon polyps PEDRO HINSON DO Aug 09, 2018 12:35
[2018-08-09] MEDS ORDERED: HURRICAINE EXT TUBE (BENZOCAINE) XX PRN (12:45)
[2018-08-09] MEDS ORDERED: MIDAZOLAM 2 MG/2 ML (VERSED) VIAL ONE (13:48)
[2018-08-09] MEDS ORDERED: PROPOFOL INJECTION 0 ML IV ONE (13:48)
[2018-08-09] MEDS ORDERED: PROPOFOL INJECTION 50 ML IV ONE (13:49)
[2018-08-09] MEDS ORDERED: LIDOCAINE PF 2% 5 ML (XYLOCAINE) VIAL ONE (13:49)
[2018-08-09] MEDS ORDERED: HURRICAINE EXT TUBE (BENZOCAINE) ONE (14:21)
[2018-08-09 14:40] VITALS: BP 124/72
[2018-08-09 15:03] VITALS: BP 132/78
[2018-08-09 15:04] VITALS: BP 132/78
--- NOTE | 2018-08-09 15:18 | Progress Note-Post Operative ---
Post-Operative Progess Note Surgeon (s)/Computer Systems Hardware Analyst (s) Surgeon PEDRO HINSON DO Computer Systems Hardware Analyst: none Pre-Operative Diagnosis Hx of gastric ulcer, hx of colon polyps Post-Operative Diagnosis Antral Ulcer Retained food Poor prep Diverticula Internal hemorrhoids ?Polyp Procedure & Operative Findings Date of Procedure 08/09/18 Procedure Performed/Findings EGD with bx Colonoscopy Anesthesia Type IV sedation by INTERNET NETWORK SPECIALIST Estimated Blood Loss Estimated blood loss (mL): scant Specimens/Packing Specimens Removed Bx of antral ulcer PEDRO HINSON DO Aug 09, 2018 15:18
--- NOTE | 2018-08-09 15:19 | Endoscopy Discharge Instruct ---
Endo Procedure/Findings Findings 1.: Gastric Ulcer 2.: Diverticulosis 3.: Internal Hemorrhoids Discharge Instructions - Activity: You might feel a little sleepy until tomorrow. This is due to the medicine you received to relax you. Until tomorrow, you should: NOT drive a car, operate machinery or power tools. NOT drink any alcoholic beverages. NOT make any important decisions or sign importortant papers. Do not return to work until tomorrow, unless otherwise instructed. Resume previous activities tomorrow. Diet: Start by taking liquids. If you tolerate liquids, advance to solid food. Instructions: 1.: EGD in 6-8 weeks Notify Physician - If you experience excessive bleeding, unusual abdominal pain, fever, or chest pain, contact your doctor immediately. Follow-Up: - I have received and understand the above instructions and will call my doctor if I have any further questions. Patient Signature Date Nurse Signature Other (Relationship) PEDRO HINSON DO Aug 09, 2018 15:19
--- NOTE | 2018-08-10 03:13 | OPERATIVE REPORT ---
DATE OF SERVICE: 08/09/2018 PREOPERATIVE DIAGNOSES: 1. History of gastric ulcers. 2. History of colon polyps. POSTOPERATIVE DIAGNOSES: 1. Antral ulcer. 2. Retained food. 3. Hiatal hernia. 4. Diverticula. 5. Internal hemorrhoids. 6. Questionable polyp. 7. Poor prep. PROCEDURES: 1. EGD with biopsy. 2. Colonoscopy. SURGEON: Hilario Rodriguez D.O. WEB SUPPORT ENGINEER: None. ANESTHESIA: IV sedation by the DIABETES TERRITORY MANAGER. SPECIMEN: One biopsy from the antrum. BLOOD LOSS: Scant. FLUIDS: Per anesthesia. POSTOPERATIVE CONDITION: Stable. INDICATION FOR PROCEDURE: The patient is a 58-year-old male with history of gastric ulcer as well as personal history of colon polyps. He needed an EGD and a colonoscopy findings. Unfortunately, the patient had a large amount of retained food in the stomach, but he did have a very large antral ulcer. Biopsy was obtained. He also had a small hiatal hernia, questionable esophagitis. Colonoscopy was then coarsely again fully retained fecal material and vessel contents, did have some diverticula, some internal hemorrhoids and may be a polyp in the rectum but could not even retroflex because of all retained fluid. PROCEDURE NOTE: After informed consent was obtained, the patient was brought to the endoscopy suite, placed in the bed in left lateral decubitus position. He was administered IV sedation by DIABETES TERRITORY MANAGER, monitored her vitals the entire time, heart rate, blood pressure and pulse ox and the scope was inserted down the mouth through the esophagus and into the stomach. Upon entry, noted a large amount of retained food, vegetable particles, picture taken, pushed towards the antrum. At the antrum saw very large ulcer, was not bleeding, elected to do a biopsy here, retroflexed a small hiatal hernia, pulled back into the GE junction, looked like maybe a little bit of esophagitis and then at this point pulled the scope up the esophagus and out the mouth. Switched scopes, switched gloves, went down below to start the colonoscopy. Upon entry, noted some fecal material and some vegetable matter. I elected to push past this and pushed all the way to the cecum, but again the cecum completely full of fecal material, could not suction up to the vegetable pieces were too thick. So at this point, slowly withdrew the scope insufflating to look circumferentially as well as looking in the ascending colon to the hepatic flexure, transverse colon, splenic flexure, descending colon, saw some diverticula in the descending colon and sigmoid and then back into the rectum, tried retroflexed, could not because of too much pressure material, thought I saw a polyp, but could not get a good picture, very poor prep. The patient will need this repeated within the next month or two. Job ID: [id number] DocumentID: [id number] Dictated Date: 08/09/2018 16:05:25 Tax Revenue Officer Date: 08/10/2018 03:13:31 Dictated By: HILARIO RODRIGUEZ DO
== END 2018-08-09 15:10 | disposition home or self-care (01) ==
LOC: ENDO 11:58
PROVIDERS: ATTEND Surgery
DX: K25.9 Gastric ulcer, unspecified as acute or chronic, without hemorrhage or perforation (principal); K29.50 Unspecified chronic gastritis without bleeding; K21.9 Gastro-esophageal reflux disease without esophagitis; K44.9 Diaphragmatic hernia without obstruction or gangrene; K57.30 Diverticulosis of large intestine without perforation or abscess without bleeding; K64.8 Other hemorrhoids; Z86.010 Personal history of colon polyps; D64.9 Anemia, unspecified; D68.2 Hereditary deficiency of other clotting factors; E66.9 Obesity, unspecified; Z68.35 Body mass index [BMI] 35.0-35.9, adult; Z86.718 Personal history of other venous thrombosis and embolism; Z79.01 Long term (current) use of anticoagulants; Z79.899 Other long term (current) drug therapy

== ENCOUNTER → 2018-08-13 | Outpatient (CLI) | payer BC | LOC: WOUNDCARE 08:13 | PROVIDERS: ATTEND Surgery | DX: L97.222 Non-pressure chronic ulcer of left calf with fat layer exposed (principal); L97.212 Non-pressure chronic ulcer of right calf with fat layer exposed; L97.312 Non-pressure chronic ulcer of right ankle with fat layer exposed; D68.51 Activated protein C resistance; L97.522 Non-pressure chronic ulcer of other part of left foot with fat layer exposed; E44.0 Moderate protein-calorie malnutrition; I82.503 Chronic embolism and thrombosis of unspecified deep veins of lower extremity, bilateral | CPT/HCPCS: 11042; 11045; 87070; 87077; 87186; 87205 ==

== ENCOUNTER → 2018-08-16 | Outpatient (CLI) | payer BC | LOC: WOUNDCARE 08:15 | PROVIDERS: ATTEND Surgery | DX: I87.333 Chronic venous hypertension (idiopathic) with ulcer and inflammation of bilateral lower extremity (principal); L97.222 Non-pressure chronic ulcer of left calf with fat layer exposed; L97.212 Non-pressure chronic ulcer of right calf with fat layer exposed; L97.312 Non-pressure chronic ulcer of right ankle with fat layer exposed; L97.522 Non-pressure chronic ulcer of other part of left foot with fat layer exposed; D68.51 Activated protein C resistance; E44.0 Moderate protein-calorie malnutrition; I82.503 Chronic embolism and thrombosis of unspecified deep veins of lower extremity, bilateral | CPT/HCPCS: 11042; 11045 ==

== ENCOUNTER → 2018-08-20 | Outpatient (CLI) | payer BC | LOC: WOUNDCARE 08:17 | PROVIDERS: ATTEND Surgery | DX: I87.333 Chronic venous hypertension (idiopathic) with ulcer and inflammation of bilateral lower extremity (principal); L97.222 Non-pressure chronic ulcer of left calf with fat layer exposed; L97.212 Non-pressure chronic ulcer of right calf with fat layer exposed; L97.312 Non-pressure chronic ulcer of right ankle with fat layer exposed; L97.522 Non-pressure chronic ulcer of other part of left foot with fat layer exposed; D68.51 Activated protein C resistance; E44.0 Moderate protein-calorie malnutrition; I82.503 Chronic embolism and thrombosis of unspecified deep veins of lower extremity, bilateral | CPT/HCPCS: 11042; 11045 ==

== ENCOUNTER 2018-08-23 05:40 | Outpatient (CLI) | payer BC ==
[~2018-08-23] VITALS: Ht 193 cm; Wt 132.4 kg
== END 2018-08-23 12:02 | disposition home or self-care (01) ==
LOC: PREOP 05:40
PROVIDERS: ATTEND Surgery
DX: Z01.818 Encounter for other preprocedural examination (principal)

== ENCOUNTER → 2018-08-23 | Outpatient (CLI) | payer BC | LOC: WOUNDCARE 08:17 | PROVIDERS: ATTEND Surgery | DX: I87.333 Chronic venous hypertension (idiopathic) with ulcer and inflammation of bilateral lower extremity (principal); L97.222 Non-pressure chronic ulcer of left calf with fat layer exposed; L97.212 Non-pressure chronic ulcer of right calf with fat layer exposed; L97.312 Non-pressure chronic ulcer of right ankle with fat layer exposed; L97.522 Non-pressure chronic ulcer of other part of left foot with fat layer exposed; D68.51 Activated protein C resistance; E44.0 Moderate protein-calorie malnutrition; I82.503 Chronic embolism and thrombosis of unspecified deep veins of lower extremity, bilateral | CPT/HCPCS: 11042; 11045 ==

== ENCOUNTER → 2018-08-24 | Outpatient (CLI) | payer BC ==
--- NOTE | 2018-08-24 14:26 | Diagnostic Imaging Report ---
EXAM: Nuclear Medicine gastric emptying study. DATE: August 24, 2018. INDICATION: 58-year-old male, gastroparesis. COMPARISON: None. RADIOPHARMACEUTICAL: 1.0 mCi of technetium labeled sulfur colloid was administered. TECHNIQUE: Subsequent anterior and posterior scintigraphic images of the stomach were obtained over a 4 hour timeframe for calculation of gastric emptying. FINDINGS: At 1 hour, there is approximately 31% gastric emptying. At 2 hours, there is approximately 45% gastric emptying. At 3 hours, there is approximately 51% gastric emptying. At 4 hours, there is approximately 55% gastric emptying. IMPRESSION: Findings compatible with delayed gastric emptying. Dictated by: Dictated on workstation # [id number]
== END ==
LOC: CARD 09:05
PROVIDERS: ATTEND Surgery
DX: K31.84 Gastroparesis (principal)
CPT/HCPCS: 78264

== ENCOUNTER 2018-08-30 07:28 | Day surgery (SDC) | payer BC ==
[~2018-08-30] VITALS: Ht 193 cm; Wt 132.4 kg
[2018-08-30] MEDS ORDERED: LACTATED RINGERS 1,000 ML IV ONE (07:34)
[2018-08-30] MEDS ORDERED: LACTATED RINGERS 1,000 ML IV STA (07:37)
[2018-08-30 07:45] VITALS: BP 128/76
[2018-08-30] MEDS ORDERED: HURRICAINE EXT TUBE (BENZOCAINE) XX PRN (07:45)
[2018-08-30] MEDS ORDERED: PROPOFOL INJECTION 50 ML IV ONE (08:14)
[2018-08-30] MEDS ORDERED: MIDAZOLAM 2 MG/2 ML (VERSED) VIAL ONE (08:15)
--- NOTE | 2018-08-30 08:18 | Progress Note-Pre Operative ---
Pre-Operative Progress Note H&P Reviewed The H&P was reviewed, patient examined and no changes noted. Time Seen by Provider: 08:16 Date H&P Reviewed: Aug 30, 2018 Time H&P Reviewed: 08:17 Pre-Operative Diagnosis: Hx of Gastric ulcer, Chronic Gastritis, Hx of colon polyps PEDRO HINSON DO Aug 30, 2018 08:18
--- NOTE | 2018-08-30 10:04 | Progress Note-Post Operative ---
Post-Operative Progess Note Surgeon (s)/Mantel Craftsman (s) Surgeon PEDRO HINSON DO Mantel Craftsman: none Pre-Operative Diagnosis Hx of Gastric ulcer, Chronic Gastritis, Hx of colon polyps Post-Operative Diagnosis Gastric Ulcers Rectal polyp Diverticula Internal hemorrhoids Procedure & Operative Findings Date of Procedure 08/30/18 Procedure Performed/Findings EGD with bx Colon with snare Anesthesia Type IV sedation by PASS WORKER Estimated Blood Loss Estimated blood loss (mL): scant Specimens/Packing Specimens Removed Gastric bx rectal polyp PEDRO HINSON DO Aug 30, 2018 10:04
--- NOTE | 2018-08-30 10:05 | Endoscopy Discharge Instruct ---
Endo Procedure/Findings Findings 1.: Gastric Ulcer 2.: Polyp 3.: Diverticulosis 4.: Internal Hemorrhoids Discharge Instructions - Activity: You might feel a little sleepy until tomorrow. This is due to the medicine you received to relax you. Until tomorrow, you should: NOT drive a car, operate machinery or power tools. NOT drink any alcoholic beverages. NOT make any important decisions or sign importortant papers. Do not return to work until tomorrow, unless otherwise instructed. Resume pr evious activities tomorrow. Diet: Start by taking liquids. If you tolerate liquids, advance to solid food. make an appointment for one week Instructions: 1.: Colonscopy in 3 years, EGD in 6-8 weeks Notify Physician - If you experience excessive bleeding, unusual abdominal pain, fever, or chest pain, contact your doctor immediately. Follow-Up: - I have received and understand the above instructions and will call my doctor if I have any further questions. Patient Signature Date Nurse Signature Other (Relationship) PEDRO HINSON DO Aug 30, 2018 10:05
[2018-08-30 10:06] VITALS: BP 134/77
[2018-08-30 10:36] VITALS: BP 131/87
[2018-08-30 11:05] VITALS: BP 131/87
--- NOTE | 2018-08-30 11:51 | Anesthesia-General Post-Op ---
MAC Patient Condition Mental Status/LOC: Same as Preop Cardiovascular: Satisfactory Nausea/Vomiting: Absent Respiratory: Satisfactory Pain: Controlled Complications: Absent Post Op Complications Complications None Follow Up Care/Instructions Patient Instructions None needed. Anesthesiology Discharge Order Discharge Order Patient is doing well, no complaints, stable vital signs, no apparent adverse anesthesia problems. No complications reported per nursing. SANTOSH YANEZ CRNA Aug 30, 2018 11:51
--- NOTE | 2018-08-30 21:25 | OPERATIVE REPORT ---
DATE OF SERVICE: 08/30/2018 PREOPERATIVE DIAGNOSES: History of gastric ulcers, chronic gastritis as well as a recently diagnosed gastroparesis. The patient also has history of colon polyps, needed a workup. FINDINGS: The patient had gastric ulcers, then some gastritis as well as retained food in the stomach. He also had a rectal polyp. He had some diverticula and some internal hemorrhoids. PROCEDURE NOTE: After informed consent was obtained, the patient was brought to the endoscopy suite and placed in the bed in the left lateral decubitus position. He was administered IV sedation by the LOOM OVERHAULER who then monitored his vitals the entire time, heart rate, blood pressure, pulse ox and the scope was inserted down the mouth through the esophagus and into the stomach. Upon entering the stomach, again unfortunately noted a large amount of retained vegetable matter, but also saw a linear ulcer and then some other flat ulcers. Elected to do biopsy of the linear ulcer as well as one of the flat ulcers, tried to retroflex the scope, fluid was kind in the way. At this point, then pulled the scope up the esophagus into the GE junction, took a picture, it did not look there was lot of change in the GE junction then pulled the scope up the esophagus and out the mouth. Switched gloves and switched cameras and went down below to start the colonoscopy. Pushed in a little bit of retained fecal material in the rectum, but able to go, pushed all the way up to the cecum about 150 cm. Once in the cecum, then slowly withdrew the scope insufflating to look circumferentially at the moise looking at the cecum up the ascending colon to the hepatic flexure, then down the transverse colon and splenic flexure into the descending colon and sigmoid. Throughout the descending colon and sigmoid saw some diverticula. Took a picture of this and then continued down in the rectum, retroflexed the rectal vault, saw internal hemorrhoids and what looked like a polyp, I elected to do snare polypectomy of this polyp, removed it and sent to pathology and then removed the scope. The patient tolerated the procedure and he was recovered in the endoscopy suite. Job ID: [id number] DocumentID: [id number] Dictated Date: 08/30/2018 16:20:44 Aircraft Engine Specialist Date: 08/30/2018 21:24:52 Dictated By: PEDRO HINSON, DO
== END 2018-08-30 11:05 | disposition home or self-care (01) ==
LOC: ENDO 07:28
PROVIDERS: ATTEND Surgery
DX: K25.9 Gastric ulcer, unspecified as acute or chronic, without hemorrhage or perforation (principal); K29.50 Unspecified chronic gastritis without bleeding; K31.84 Gastroparesis; K57.30 Diverticulosis of large intestine without perforation or abscess without bleeding; K64.8 Other hemorrhoids; K64.4 Residual hemorrhoidal skin tags; K31.89 Other diseases of stomach and duodenum; Z86.010 Personal history of colon polyps; D64.9 Anemia, unspecified; D68.2 Hereditary deficiency of other clotting factors; E66.01 Morbid (severe) obesity due to excess calories; K21.9 Gastro-esophageal reflux disease without esophagitis; Z86.718 Personal history of other venous thrombosis and embolism; Z87.442 Personal history of urinary calculi; Z79.01 Long term (current) use of anticoagulants; Z79.899 Other long term (current) drug therapy; Z88.5 Allergy status to narcotic agent; Z68.38 Body mass index [BMI] 38.0-38.9, adult

== ENCOUNTER → 2018-09-03 | Outpatient (CLI) | payer BC | LOC: WOUNDCARE 08:13 | PROVIDERS: ATTEND Surgery | DX: I87.333 Chronic venous hypertension (idiopathic) with ulcer and inflammation of bilateral lower extremity (principal); L97.222 Non-pressure chronic ulcer of left calf with fat layer exposed; L97.212 Non-pressure chronic ulcer of right calf with fat layer exposed; L97.312 Non-pressure chronic ulcer of right ankle with fat layer exposed; L97.522 Non-pressure chronic ulcer of other part of left foot with fat layer exposed; D68.51 Activated protein C resistance; E44.0 Moderate protein-calorie malnutrition; I82.503 Chronic embolism and thrombosis of unspecified deep veins of lower extremity, bilateral | CPT/HCPCS: 11042; 11045 ==

== ENCOUNTER → 2018-09-06 | Outpatient (CLI) | payer BC | LOC: WOUNDCARE 08:15 | PROVIDERS: ATTEND Surgery | DX: I87.333 Chronic venous hypertension (idiopathic) with ulcer and inflammation of bilateral lower extremity (principal); L97.222 Non-pressure chronic ulcer of left calf with fat layer exposed; L97.212 Non-pressure chronic ulcer of right calf with fat layer exposed; L97.312 Non-pressure chronic ulcer of right ankle with fat layer exposed; L97.522 Non-pressure chronic ulcer of other part of left foot with fat layer exposed; D68.51 Activated protein C resistance; E44.0 Moderate protein-calorie malnutrition; I82.503 Chronic embolism and thrombosis of unspecified deep veins of lower extremity, bilateral | CPT/HCPCS: 11042; 11045; 97606 ==

== ENCOUNTER → 2018-09-08 | Outpatient (CLI) | payer BC | LOC: WOUNDCARE 08:11 | PROVIDERS: ATTEND Surgery | DX: I87.333 Chronic venous hypertension (idiopathic) with ulcer and inflammation of bilateral lower extremity (principal); L97.222 Non-pressure chronic ulcer of left calf with fat layer exposed | CPT/HCPCS: 97606 ==

== ENCOUNTER → 2018-09-10 | Outpatient (CLI) | payer BC | LOC: WOUNDCARE 08:14 | PROVIDERS: ATTEND Surgery | DX: L97.229 Non-pressure chronic ulcer of left calf with unspecified severity (principal); D64.9 Anemia, unspecified; I82.409 Acute embolism and thrombosis of unspecified deep veins of unspecified lower extremity; I73.9 Peripheral vascular disease, unspecified; M19.91 Primary osteoarthritis, unspecified site | CPT/HCPCS: 97606 ==

== ENCOUNTER → 2018-09-13 | Outpatient (CLI) | payer BC | LOC: WOUNDCARE 08:18 | PROVIDERS: ATTEND Surgery | DX: L97.212 Non-pressure chronic ulcer of right calf with fat layer exposed (principal); L97.222 Non-pressure chronic ulcer of left calf with fat layer exposed; L97.322 Non-pressure chronic ulcer of left ankle with fat layer exposed; I87.333 Chronic venous hypertension (idiopathic) with ulcer and inflammation of bilateral lower extremity; D68.51 Activated protein C resistance; L97.522 Non-pressure chronic ulcer of other part of left foot with fat layer exposed; E44.0 Moderate protein-calorie malnutrition; I82.503 Chronic embolism and thrombosis of unspecified deep veins of lower extremity, bilateral | CPT/HCPCS: 11042; 11045 ==

== ENCOUNTER → 2018-09-17 | Outpatient (CLI) | payer BC | LOC: WOUNDCARE 08:17 | PROVIDERS: ATTEND Surgery | DX: L97.222 Non-pressure chronic ulcer of left calf with fat layer exposed (principal); L97.212 Non-pressure chronic ulcer of right calf with fat layer exposed; L97.312 Non-pressure chronic ulcer of right ankle with fat layer exposed; Z86.79 Personal history of other diseases of the circulatory system | CPT/HCPCS: 29581 ==

== ENCOUNTER → 2018-09-20 | Outpatient (CLI) | payer BC | LOC: WOUNDCARE 08:17 | PROVIDERS: ATTEND Surgery | DX: L97.222 Non-pressure chronic ulcer of left calf with fat layer exposed (principal); L97.212 Non-pressure chronic ulcer of right calf with fat layer exposed; L97.312 Non-pressure chronic ulcer of right ankle with fat layer exposed; I87.333 Chronic venous hypertension (idiopathic) with ulcer and inflammation of bilateral lower extremity; D68.51 Activated protein C resistance; L97.522 Non-pressure chronic ulcer of other part of left foot with fat layer exposed; I82.503 Chronic embolism and thrombosis of unspecified deep veins of lower extremity, bilateral; I96 Gangrene, not elsewhere classified | CPT/HCPCS: 11042; 11045; 97606 ==

== ENCOUNTER → 2018-09-24 | Outpatient (CLI) | payer BC | LOC: WOUNDCARE 08:18 | PROVIDERS: ATTEND Surgery | DX: L97.222 Non-pressure chronic ulcer of left calf with fat layer exposed (principal); D64.9 Anemia, unspecified; I82.409 Acute embolism and thrombosis of unspecified deep veins of unspecified lower extremity; I73.9 Peripheral vascular disease, unspecified; M19.90 Unspecified osteoarthritis, unspecified site | CPT/HCPCS: 29581; 97606 ==

== ENCOUNTER → 2018-09-27 | Outpatient (CLI) | payer BC | LOC: WOUNDCARE 08:16 | PROVIDERS: ATTEND Surgery | DX: S81.802A Unspecified open wound, left lower leg, initial encounter (principal); S81.801A Unspecified open wound, right lower leg, initial encounter; S91.001A Unspecified open wound, right ankle, initial encounter; S91.109A Unspecified open wound of unspecified toe(s) without damage to nail, initial encounter; D64.9 Anemia, unspecified; I82.409 Acute embolism and thrombosis of unspecified deep veins of unspecified lower extremity; I73.9 Peripheral vascular disease, unspecified; M19.90 Unspecified osteoarthritis, unspecified site | CPT/HCPCS: 11042; 11045 ==

== ENCOUNTER → 2018-10-01 | Outpatient (CLI) | payer BC | LOC: WOUNDCARE 08:11 | PROVIDERS: ATTEND Nurse Practitioner | DX: L97.218 Non-pressure chronic ulcer of right calf with other specified severity (principal) | CPT/HCPCS: 29581 ==

== ENCOUNTER → 2018-10-11 | Outpatient (CLI) | payer BC | LOC: LAB 09:53 | PROVIDERS: ATTEND Surgery | DX: E44.1 Mild protein-calorie malnutrition (principal) | CPT/HCPCS: 36415; 84134 ==

== ENCOUNTER → 2018-10-15 | Outpatient (CLI) | payer BC | LOC: WOUNDCARE 08:16 | PROVIDERS: ATTEND Surgery | DX: L97.222 Non-pressure chronic ulcer of left calf with fat layer exposed (principal); L97.212 Non-pressure chronic ulcer of right calf with fat layer exposed; L97.312 Non-pressure chronic ulcer of right ankle with fat layer exposed; I87.323 Chronic venous hypertension (idiopathic) with inflammation of bilateral lower extremity; D68.51 Activated protein C resistance; L97.522 Non-pressure chronic ulcer of other part of left foot with fat layer exposed; I82.503 Chronic embolism and thrombosis of unspecified deep veins of lower extremity, bilateral; I89.0 Lymphedema, not elsewhere classified; I96 Gangrene, not elsewhere classified | CPT/HCPCS: 11042; 11045 ==

== ENCOUNTER 2018-10-20 09:15 | Outpatient (RCR) | payer BC ==
[2018-08-17 09:24] LABS: BASOPHILS % (AUTO) 0 % (0-10); EOSINOPHILS # (AUTO) 0.2 10^3/uL (0.0-0.3); EOSINOPHILS % (AUTO) 4 % (0-10); HEMATOCRIT 35 % (40-54); HEMOGLOBIN 11.3 G/DL (13.3-17.7); LYMPHOCYTES % (AUTO) 20 % (12-44); MEAN CORPUSCULAR HEMOGLOBIN 27 PG (25-34); MEAN CORPUSCULAR HGB CONC 32 G/DL (32-36); MEAN CORPUSCULAR VOLUME 84 FL (80-99); MEAN PLATELET VOLUME 9.3 FL (7.4-10.4); MONOCYTES # (AUTO) 0.6 X 10^3 (0.0-1.0); MONOCYTES % (AUTO) 11 % (0-12); NEUTROPHILS # (AUTO) 3.2 X 10^3 (1.8-7.8); NEUTROPHILS % (AUTO) 64 % (42-75); PLATELET COUNT 220 10^3/uL (130-400); RED CELL DISTRIBUTION WIDTH 16.4 % (10.0-14.5)
[2018-10-11 10:20] LABS: BASOPHILS % (AUTO) 1 % (0-10); EOSINOPHILS # (AUTO) 0.2 10^3/uL (0.0-0.3); EOSINOPHILS % (AUTO) 7 % (0-10); HEMATOCRIT 32 % (40-54); HEMOGLOBIN 9.9 G/DL (13.3-17.7); LYMPHOCYTES % (AUTO) 27 % (12-44); MEAN CORPUSCULAR HEMOGLOBIN 25 PG (25-34); MEAN CORPUSCULAR HGB CONC 31 G/DL (32-36); MEAN CORPUSCULAR VOLUME 81 FL (80-99); MEAN PLATELET VOLUME 9.6 FL (7.4-10.4); MONOCYTES # (AUTO) 0.3 X 10^3 (0.0-1.0); MONOCYTES % (AUTO) 9 % (0-12); NEUTROPHILS # (AUTO) 2.1 X 10^3 (1.8-7.8); NEUTROPHILS % (AUTO) 57 % (42-75); PLATELET COUNT 268 10^3/uL (130-400); RED CELL DISTRIBUTION WIDTH 15.9 % (10.0-14.5); WHITE BLOOD COUNT 3.7 10^3/uL (4.3-11.0)
[2018-10-11 10:43] LABS: ALANINE AMINOTRANSFERASE 19 U/L (0-55); ALBUMIN 2.9 GM/DL (3.2-4.5); ALKALINE PHOSPHATASE 107 U/L (40-136); BILIRUBIN,TOTAL 0.2 MG/DL (0.1-1.0); BUN/CREATININE RATIO 14; CALCIUM 8.8 MG/DL (8.5-10.1); CARBON DIOXIDE 24 MMOL/L (21-32); CHLORIDE 106 MMOL/L (98-107); CREATININE SERUM 1.12 MG/DL (0.60-1.30); GFR ESTIMATED > 60; GLUCOSE 89 MG/DL (70-105); POTASSIUM 4.5 MMOL/L (3.6-5.0); SODIUM 137 MMOL/L (135-145); TOTAL PROTEIN 6.7 GM/DL (6.4-8.2)
[~2018-10-20 09:15] MED LIST changes: +FERRIC CARBOXYMALTOSE (CANCER) 750 MG in NS (IVPB) CANCER CENTER 250 ML IV SCH
== END 2018-11-15 | disposition home or self-care (01) ==
LOC: ONC 09:15
PROVIDERS: ATTEND Internal Medicine Hematology & Oncology
DX: D68.51 Activated protein C resistance (principal); D50.0 Iron deficiency anemia secondary to blood loss (chronic); I82.503 Chronic embolism and thrombosis of unspecified deep veins of lower extremity, bilateral; K29.70 Gastritis, unspecified, without bleeding; E66.01 Morbid (severe) obesity due to excess calories; Z68.39 Body mass index [BMI] 39.0-39.9, adult; Z79.01 Long term (current) use of anticoagulants; Z79.82 Long term (current) use of aspirin; Z79.899 Other long term (current) drug therapy
CPT/HCPCS: 36415; 80053; 82728; 83540; 85025; 96365; 99213

== ENCOUNTER → 2018-10-22 | Outpatient (CLI) | payer BC ==
[~2018-10-22] MED LIST changes: -FERRIC CARBOXYMALTOSE (CANCER) 750 MG in NS (IVPB) CANCER CENTER 250 ML IV SCH
== END ==
LOC: WOUNDCARE 08:12
PROVIDERS: ATTEND Surgery
DX: I87.333 Chronic venous hypertension (idiopathic) with ulcer and inflammation of bilateral lower extremity (principal); L97.222 Non-pressure chronic ulcer of left calf with fat layer exposed; L97.212 Non-pressure chronic ulcer of right calf with fat layer exposed; L97.312 Non-pressure chronic ulcer of right ankle with fat layer exposed; L97.522 Non-pressure chronic ulcer of other part of left foot with fat layer exposed; I96 Gangrene, not elsewhere classified; I82.503 Chronic embolism and thrombosis of unspecified deep veins of lower extremity, bilateral; I89.0 Lymphedema, not elsewhere classified; D68.51 Activated protein C resistance
CPT/HCPCS: 11042; 11045

== ENCOUNTER → 2018-10-25 | Outpatient (CLI) | payer BC | LOC: WOUNDCARE 08:14 | PROVIDERS: ATTEND Surgery | DX: L97.222 Non-pressure chronic ulcer of left calf with fat layer exposed (principal); L97.212 Non-pressure chronic ulcer of right calf with fat layer exposed; L97.312 Non-pressure chronic ulcer of right ankle with fat layer exposed; I87.333 Chronic venous hypertension (idiopathic) with ulcer and inflammation of bilateral lower extremity; D68.51 Activated protein C resistance; L97.522 Non-pressure chronic ulcer of other part of left foot with fat layer exposed; I82.503 Chronic embolism and thrombosis of unspecified deep veins of lower extremity, bilateral; I89.0 Lymphedema, not elsewhere classified; I96 Gangrene, not elsewhere classified | CPT/HCPCS: 11042; 11045 ==

== ENCOUNTER → 2018-11-01 | Outpatient (CLI) | payer BC | LOC: WOUNDCARE 08:13 | PROVIDERS: ATTEND Surgery | DX: I87.333 Chronic venous hypertension (idiopathic) with ulcer and inflammation of bilateral lower extremity (principal); L97.222 Non-pressure chronic ulcer of left calf with fat layer exposed; L97.212 Non-pressure chronic ulcer of right calf with fat layer exposed; L97.312 Non-pressure chronic ulcer of right ankle with fat layer exposed; L97.522 Non-pressure chronic ulcer of other part of left foot with fat layer exposed; I89.0 Lymphedema, not elsewhere classified; I96 Gangrene, not elsewhere classified; I82.503 Chronic embolism and thrombosis of unspecified deep veins of lower extremity, bilateral; D68.51 Activated protein C resistance | CPT/HCPCS: 11042; 11045 ==

== ENCOUNTER → 2018-11-01 | Outpatient (CLI) | payer BC | LOC: LAB 10:09 | PROVIDERS: ATTEND Surgery | DX: L97.222 Non-pressure chronic ulcer of left calf with fat layer exposed (principal) | CPT/HCPCS: 36415; 84134 ==

== ENCOUNTER → 2018-11-05 | Outpatient (CLI) | payer BC | LOC: WOUNDCARE 08:16 | PROVIDERS: ATTEND Surgery | DX: L97.212 Non-pressure chronic ulcer of right calf with fat layer exposed (principal); L97.222 Non-pressure chronic ulcer of left calf with fat layer exposed; L97.312 Non-pressure chronic ulcer of right ankle with fat layer exposed; I87.333 Chronic venous hypertension (idiopathic) with ulcer and inflammation of bilateral lower extremity; D68.51 Activated protein C resistance; L97.522 Non-pressure chronic ulcer of other part of left foot with fat layer exposed; I82.503 Chronic embolism and thrombosis of unspecified deep veins of lower extremity, bilateral; I89.0 Lymphedema, not elsewhere classified; I96 Gangrene, not elsewhere classified | CPT/HCPCS: 11042; 11045 ==

== ENCOUNTER → 2018-11-12 | Outpatient (CLI) | payer BC | LOC: WOUNDCARE 12:31 | PROVIDERS: ATTEND Surgery | DX: L97.222 Non-pressure chronic ulcer of left calf with fat layer exposed (principal); L97.212 Non-pressure chronic ulcer of right calf with fat layer exposed; L97.312 Non-pressure chronic ulcer of right ankle with fat layer exposed; L97.522 Non-pressure chronic ulcer of other part of left foot with fat layer exposed; D68.51 Activated protein C resistance; I89.0 Lymphedema, not elsewhere classified; I82.503 Chronic embolism and thrombosis of unspecified deep veins of lower extremity, bilateral; I96 Gangrene, not elsewhere classified | CPT/HCPCS: 11042; 11045; 97597 ==

== ENCOUNTER → 2018-11-15 | Outpatient (CLI) | payer BC | LOC: WOUNDCARE 08:12 | PROVIDERS: ATTEND Surgery | DX: L97.222 Non-pressure chronic ulcer of left calf with fat layer exposed (principal); L97.212 Non-pressure chronic ulcer of right calf with fat layer exposed; L97.312 Non-pressure chronic ulcer of right ankle with fat layer exposed; I87.333 Chronic venous hypertension (idiopathic) with ulcer and inflammation of bilateral lower extremity; D68.51 Activated protein C resistance; L97.522 Non-pressure chronic ulcer of other part of left foot with fat layer exposed; I82.503 Chronic embolism and thrombosis of unspecified deep veins of lower extremity, bilateral; I89.0 Lymphedema, not elsewhere classified; I96 Gangrene, not elsewhere classified | CPT/HCPCS: 11042; 11045; 87070; 87205 ==

== ENCOUNTER → 2018-11-22 | Outpatient (CLI) | payer BC | LOC: WOUNDCARE 08:01 | PROVIDERS: ATTEND Surgery | DX: L97.212 Non-pressure chronic ulcer of right calf with fat layer exposed (principal); L97.222 Non-pressure chronic ulcer of left calf with fat layer exposed; L97.312 Non-pressure chronic ulcer of right ankle with fat layer exposed; I87.333 Chronic venous hypertension (idiopathic) with ulcer and inflammation of bilateral lower extremity; D68.51 Activated protein C resistance; L97.522 Non-pressure chronic ulcer of other part of left foot with fat layer exposed; I82.503 Chronic embolism and thrombosis of unspecified deep veins of lower extremity, bilateral; I89.0 Lymphedema, not elsewhere classified; I96 Gangrene, not elsewhere classified | CPT/HCPCS: 11042; 11045 ==

== ENCOUNTER → 2018-11-29 | Outpatient (CLI) | payer BC | LOC: WOUNDCARE 08:19 | PROVIDERS: ATTEND Surgery | DX: I96 Gangrene, not elsewhere classified (principal); I87.333 Chronic venous hypertension (idiopathic) with ulcer and inflammation of bilateral lower extremity; L97.222 Non-pressure chronic ulcer of left calf with fat layer exposed; L97.212 Non-pressure chronic ulcer of right calf with fat layer exposed; L97.312 Non-pressure chronic ulcer of right ankle with fat layer exposed; L97.522 Non-pressure chronic ulcer of other part of left foot with fat layer exposed; D68.51 Activated protein C resistance; I82.503 Chronic embolism and thrombosis of unspecified deep veins of lower extremity, bilateral; I89.0 Lymphedema, not elsewhere classified | CPT/HCPCS: 11042; 11045 ==

== ENCOUNTER → 2018-12-03 | Outpatient (CLI) | payer BC | LOC: LAB 09:41 | PROVIDERS: ATTEND Surgery | DX: I87.333 Chronic venous hypertension (idiopathic) with ulcer and inflammation of bilateral lower extremity (principal); L97.212 Non-pressure chronic ulcer of right calf with fat layer exposed; L97.312 Non-pressure chronic ulcer of right ankle with fat layer exposed; L97.222 Non-pressure chronic ulcer of left calf with fat layer exposed; D68.51 Activated protein C resistance; L97.522 Non-pressure chronic ulcer of other part of left foot with fat layer exposed; I82.503 Chronic embolism and thrombosis of unspecified deep veins of lower extremity, bilateral; I89.0 Lymphedema, not elsewhere classified; E44.1 Mild protein-calorie malnutrition | CPT/HCPCS: 36415; 84134 ==

== ENCOUNTER → 2018-12-03 | Outpatient (CLI) | payer BC | LOC: WOUNDCARE 08:09 | PROVIDERS: ATTEND Surgery | DX: L97.222 Non-pressure chronic ulcer of left calf with fat layer exposed (principal); L97.212 Non-pressure chronic ulcer of right calf with fat layer exposed; L97.312 Non-pressure chronic ulcer of right ankle with fat layer exposed; I87.333 Chronic venous hypertension (idiopathic) with ulcer and inflammation of bilateral lower extremity; D68.51 Activated protein C resistance; L97.522 Non-pressure chronic ulcer of other part of left foot with fat layer exposed; I82.503 Chronic embolism and thrombosis of unspecified deep veins of lower extremity, bilateral; I89.0 Lymphedema, not elsewhere classified; I96 Gangrene, not elsewhere classified | CPT/HCPCS: 11042; 11045 ==

== ENCOUNTER → 2018-12-06 | Outpatient (CLI) | payer BC | LOC: WOUNDCARE 09:02 | PROVIDERS: ATTEND Surgery | DX: L97.222 Non-pressure chronic ulcer of left calf with fat layer exposed (principal); L97.212 Non-pressure chronic ulcer of right calf with fat layer exposed; L97.312 Non-pressure chronic ulcer of right ankle with fat layer exposed; I87.333 Chronic venous hypertension (idiopathic) with ulcer and inflammation of bilateral lower extremity; D68.51 Activated protein C resistance; L97.522 Non-pressure chronic ulcer of other part of left foot with fat layer exposed; I82.503 Chronic embolism and thrombosis of unspecified deep veins of lower extremity, bilateral; I89.0 Lymphedema, not elsewhere classified; I96 Gangrene, not elsewhere classified | CPT/HCPCS: 11042; 11045 ==

== ENCOUNTER → 2018-12-10 | Outpatient (CLI) | payer BC | LOC: WOUNDCARE 08:18 | PROVIDERS: ATTEND Surgery | DX: L97.222 Non-pressure chronic ulcer of left calf with fat layer exposed (principal); L97.212 Non-pressure chronic ulcer of right calf with fat layer exposed; L97.312 Non-pressure chronic ulcer of right ankle with fat layer exposed; I87.333 Chronic venous hypertension (idiopathic) with ulcer and inflammation of bilateral lower extremity; D68.51 Activated protein C resistance; L97.522 Non-pressure chronic ulcer of other part of left foot with fat layer exposed; I82.503 Chronic embolism and thrombosis of unspecified deep veins of lower extremity, bilateral; I89.0 Lymphedema, not elsewhere classified; I96 Gangrene, not elsewhere classified | CPT/HCPCS: 11042; 11045 ==

== ENCOUNTER → 2018-12-13 | Outpatient (CLI) | payer BC | LOC: WOUNDCARE 08:14 | PROVIDERS: ATTEND Surgery | DX: L97.222 Non-pressure chronic ulcer of left calf with fat layer exposed (principal); L97.212 Non-pressure chronic ulcer of right calf with fat layer exposed; L97.312 Non-pressure chronic ulcer of right ankle with fat layer exposed; I87.333 Chronic venous hypertension (idiopathic) with ulcer and inflammation of bilateral lower extremity; D68.51 Activated protein C resistance; L97.522 Non-pressure chronic ulcer of other part of left foot with fat layer exposed; I82.403 Acute embolism and thrombosis of unspecified deep veins of lower extremity, bilateral; I89.0 Lymphedema, not elsewhere classified; I96 Gangrene, not elsewhere classified | CPT/HCPCS: 11042; 11045 ==

== ENCOUNTER → 2018-12-17 | Outpatient (CLI) | payer BC | LOC: WOUNDCARE 12:05 | PROVIDERS: ATTEND Nurse Practitioner | DX: I87.333 Chronic venous hypertension (idiopathic) with ulcer and inflammation of bilateral lower extremity (principal); I96 Gangrene, not elsewhere classified; L97.222 Non-pressure chronic ulcer of left calf with fat layer exposed; L97.212 Non-pressure chronic ulcer of right calf with fat layer exposed; L97.312 Non-pressure chronic ulcer of right ankle with fat layer exposed; L97.522 Non-pressure chronic ulcer of other part of left foot with fat layer exposed; D68.51 Activated protein C resistance; I82.503 Chronic embolism and thrombosis of unspecified deep veins of lower extremity, bilateral; I89.0 Lymphedema, not elsewhere classified | CPT/HCPCS: 11042; 11045 ==

== ENCOUNTER → 2018-12-20 | Outpatient (CLI) | payer BC | LOC: WOUNDCARE 08:13 | PROVIDERS: ATTEND Surgery | DX: L97.212 Non-pressure chronic ulcer of right calf with fat layer exposed (principal); L97.222 Non-pressure chronic ulcer of left calf with fat layer exposed; L97.312 Non-pressure chronic ulcer of right ankle with fat layer exposed; I87.333 Chronic venous hypertension (idiopathic) with ulcer and inflammation of bilateral lower extremity; D68.51 Activated protein C resistance; L97.522 Non-pressure chronic ulcer of other part of left foot with fat layer exposed; I82.503 Chronic embolism and thrombosis of unspecified deep veins of lower extremity, bilateral; I89.0 Lymphedema, not elsewhere classified; I96 Gangrene, not elsewhere classified | CPT/HCPCS: 11042; 11045 ==

== ENCOUNTER → 2018-12-24 | Outpatient (CLI) | payer BC | LOC: WOUNDCARE 08:17 | PROVIDERS: ATTEND Surgery | DX: I96 Gangrene, not elsewhere classified (principal); I87.333 Chronic venous hypertension (idiopathic) with ulcer and inflammation of bilateral lower extremity; L97.222 Non-pressure chronic ulcer of left calf with fat layer exposed; L97.212 Non-pressure chronic ulcer of right calf with fat layer exposed; L97.312 Non-pressure chronic ulcer of right ankle with fat layer exposed; L97.522 Non-pressure chronic ulcer of other part of left foot with fat layer exposed; D68.51 Activated protein C resistance; I82.503 Chronic embolism and thrombosis of unspecified deep veins of lower extremity, bilateral; I89.0 Lymphedema, not elsewhere classified | CPT/HCPCS: 11042; 11045 ==

== ENCOUNTER → 2018-12-27 | Outpatient (CLI) | payer BC | LOC: WOUNDCARE 08:15 | PROVIDERS: ATTEND Surgery | DX: L97.222 Non-pressure chronic ulcer of left calf with fat layer exposed (principal); L97.212 Non-pressure chronic ulcer of right calf with fat layer exposed; L97.312 Non-pressure chronic ulcer of right ankle with fat layer exposed; I87.333 Chronic venous hypertension (idiopathic) with ulcer and inflammation of bilateral lower extremity; D68.51 Activated protein C resistance; L97.522 Non-pressure chronic ulcer of other part of left foot with fat layer exposed; I82.503 Chronic embolism and thrombosis of unspecified deep veins of lower extremity, bilateral; I89.0 Lymphedema, not elsewhere classified; I96 Gangrene, not elsewhere classified | CPT/HCPCS: 11042; 11045 ==

== ENCOUNTER → 2018-12-31 | Outpatient (CLI) | payer BC | LOC: WOUNDCARE 08:12 | PROVIDERS: ATTEND Surgery | DX: L97.222 Non-pressure chronic ulcer of left calf with fat layer exposed (principal); L97.212 Non-pressure chronic ulcer of right calf with fat layer exposed; L97.312 Non-pressure chronic ulcer of right ankle with fat layer exposed; I87.333 Chronic venous hypertension (idiopathic) with ulcer and inflammation of bilateral lower extremity; D68.51 Activated protein C resistance; L97.522 Non-pressure chronic ulcer of other part of left foot with fat layer exposed; I82.503 Chronic embolism and thrombosis of unspecified deep veins of lower extremity, bilateral; I89.0 Lymphedema, not elsewhere classified; I96 Gangrene, not elsewhere classified | CPT/HCPCS: 11042; 11045 ==

== ENCOUNTER → 2019-01-03 | Outpatient (CLI) | payer BC | LOC: WOUNDCARE 08:14 | PROVIDERS: ATTEND Surgery | DX: I87.333 Chronic venous hypertension (idiopathic) with ulcer and inflammation of bilateral lower extremity (principal); I96 Gangrene, not elsewhere classified; L97.222 Non-pressure chronic ulcer of left calf with fat layer exposed; L97.212 Non-pressure chronic ulcer of right calf with fat layer exposed; L97.312 Non-pressure chronic ulcer of right ankle with fat layer exposed; L97.522 Non-pressure chronic ulcer of other part of left foot with fat layer exposed; D68.51 Activated protein C resistance; I82.503 Chronic embolism and thrombosis of unspecified deep veins of lower extremity, bilateral; I89.0 Lymphedema, not elsewhere classified | CPT/HCPCS: 11042; 11045 ==

== ENCOUNTER → 2019-01-03 | Outpatient (CLI) | payer BC | LOC: LAB 09:30 | PROVIDERS: ATTEND Surgery | DX: L97.222 Non-pressure chronic ulcer of left calf with fat layer exposed (principal) | CPT/HCPCS: 36415; 84134 ==

== ENCOUNTER → 2019-01-07 | Outpatient (CLI) | payer BC | LOC: WOUNDCARE 08:16 | PROVIDERS: ATTEND Surgery | DX: L97.222 Non-pressure chronic ulcer of left calf with fat layer exposed (principal); L97.212 Non-pressure chronic ulcer of right calf with fat layer exposed; L97.312 Non-pressure chronic ulcer of right ankle with fat layer exposed; I87.333 Chronic venous hypertension (idiopathic) with ulcer and inflammation of bilateral lower extremity; D68.51 Activated protein C resistance; L97.522 Non-pressure chronic ulcer of other part of left foot with fat layer exposed; I82.503 Chronic embolism and thrombosis of unspecified deep veins of lower extremity, bilateral; I89.0 Lymphedema, not elsewhere classified; I96 Gangrene, not elsewhere classified | CPT/HCPCS: 11042; 11045 ==

== ENCOUNTER 2019-01-10 09:48 | Outpatient (RCR) | payer BC ==
[2018-11-29 09:58] LABS: BASOPHILS % (AUTO) 0 % (0-10); EOSINOPHILS # (AUTO) 0.2 10^3/uL (0.0-0.3); EOSINOPHILS % (AUTO) 3 % (0-10); HEMATOCRIT 33 % (40-54); HEMOGLOBIN 10.2 G/DL (13.3-17.7); LYMPHOCYTES % (AUTO) 23 % (12-44); MEAN CORPUSCULAR HEMOGLOBIN 27 PG (25-34); MEAN CORPUSCULAR HGB CONC 31 G/DL (32-36); MEAN CORPUSCULAR VOLUME 88 FL (80-99); MEAN PLATELET VOLUME 9.5 FL (7.4-10.4); MONOCYTES # (AUTO) 0.4 X 10^3 (0.0-1.0); MONOCYTES % (AUTO) 9 % (0-12); NEUTROPHILS # (AUTO) 2.9 X 10^3 (1.8-7.8); NEUTROPHILS % (AUTO) 65 % (42-75); PLATELET COUNT 266 10^3/uL (130-400); RED CELL DISTRIBUTION WIDTH 18.8 % (10.0-14.5); WHITE BLOOD COUNT 4.5 10^3/uL (4.3-11.0)
[2018-11-29 10:17] LABS: BILIRUBIN,TOTAL 0.2 MG/DL (0.1-1.0); CALCIUM 8.1 MG/DL (8.5-10.1); CREATININE SERUM 1.36 MG/DL (0.60-1.30); POTASSIUM 4.7 MMOL/L (3.6-5.0)
[2019-01-03 09:44] LABS: BASOPHILS % (AUTO) 1 % (0-10); EOSINOPHILS # (AUTO) 0.2 10^3/uL (0.0-0.3); EOSINOPHILS % (AUTO) 3 % (0-10); HEMATOCRIT 36 % (40-54); LYMPHOCYTES % (AUTO) 21 % (12-44); MEAN CORPUSCULAR HEMOGLOBIN 28 PG (25-34); MEAN CORPUSCULAR HGB CONC 31 G/DL (32-36); MEAN CORPUSCULAR VOLUME 91 FL (80-99); MONOCYTES # (AUTO) 0.6 X 10^3 (0.0-1.0); MONOCYTES % (AUTO) 13 % (0-12); NEUTROPHILS % (AUTO) 63 % (42-75); PLATELET COUNT 281 10^3/uL (130-400); RED CELL DISTRIBUTION WIDTH 18.1 % (10.0-14.5); WHITE BLOOD COUNT 4.7 10^3/uL (4.3-11.0)
[2019-01-03 10:02] LABS: ALANINE AMINOTRANSFERASE 24 U/L (0-55); ALKALINE PHOSPHATASE 104 U/L (40-136); BILIRUBIN,TOTAL 0.2 MG/DL (0.1-1.0); BUN/CREATININE RATIO 14; CALCIUM 8.4 MG/DL (8.5-10.1); CARBON DIOXIDE 23 MMOL/L (21-32); CHLORIDE 106 MMOL/L (98-107); CREATININE SERUM 1.01 MG/DL (0.60-1.30); GFR ESTIMATED > 60; GLUCOSE 96 MG/DL (70-105); POTASSIUM 4.2 MMOL/L (3.6-5.0); SODIUM 136 MMOL/L (135-145); TOTAL PROTEIN 6.6 GM/DL (6.4-8.2)
[~2019-01-10 09:48] MED LIST changes: +FERRIC CARBOXYMALTOSE (CANCER) 750 MG in NS (IVPB) CANCER CENTER 250 ML IV SCH
== END 2019-02-27 | disposition home or self-care (01) ==
LOC: ONC 09:48
PROVIDERS: ATTEND Internal Medicine Hematology & Oncology
DX: D68.51 Activated protein C resistance (principal); D50.0 Iron deficiency anemia secondary to blood loss (chronic); I82.503 Chronic embolism and thrombosis of unspecified deep veins of lower extremity, bilateral; K29.70 Gastritis, unspecified, without bleeding; E66.01 Morbid (severe) obesity due to excess calories; Z68.39 Body mass index [BMI] 39.0-39.9, adult; Z79.01 Long term (current) use of anticoagulants; Z79.82 Long term (current) use of aspirin; Z79.899 Other long term (current) drug therapy
CPT/HCPCS: 36415; 80053; 82728; 83540; 85025; 96365

== ENCOUNTER → 2019-01-10 | Outpatient (CLI) | payer BC | LOC: WOUNDCARE 08:14 | PROVIDERS: ATTEND Surgery | DX: I87.333 Chronic venous hypertension (idiopathic) with ulcer and inflammation of bilateral lower extremity (principal); I96 Gangrene, not elsewhere classified; L97.222 Non-pressure chronic ulcer of left calf with fat layer exposed; L97.212 Non-pressure chronic ulcer of right calf with fat layer exposed; L97.312 Non-pressure chronic ulcer of right ankle with fat layer exposed; L97.522 Non-pressure chronic ulcer of other part of left foot with fat layer exposed; I82.503 Chronic embolism and thrombosis of unspecified deep veins of lower extremity, bilateral; I89.0 Lymphedema, not elsewhere classified; D68.51 Activated protein C resistance | CPT/HCPCS: 11042; 11045 ==

== ENCOUNTER → 2019-01-14 | Outpatient (CLI) | payer BC ==
[~2019-01-14] MED LIST changes: -FERRIC CARBOXYMALTOSE (CANCER) 750 MG in NS (IVPB) CANCER CENTER 250 ML IV SCH
== END ==
LOC: WOUNDCARE 08:14
PROVIDERS: ATTEND Surgery
DX: L97.212 Non-pressure chronic ulcer of right calf with fat layer exposed (principal); L97.222 Non-pressure chronic ulcer of left calf with fat layer exposed; L97.312 Non-pressure chronic ulcer of right ankle with fat layer exposed; I87.333 Chronic venous hypertension (idiopathic) with ulcer and inflammation of bilateral lower extremity; D68.51 Activated protein C resistance; L97.522 Non-pressure chronic ulcer of other part of left foot with fat layer exposed; I82.503 Chronic embolism and thrombosis of unspecified deep veins of lower extremity, bilateral; I89.0 Lymphedema, not elsewhere classified; I96 Gangrene, not elsewhere classified
CPT/HCPCS: 11042; 11045

== ENCOUNTER → 2019-01-17 | Outpatient (CLI) | payer BC | LOC: WOUNDCARE 13:59 | PROVIDERS: ATTEND Surgery | DX: I96 Gangrene, not elsewhere classified (principal); L97.222 Non-pressure chronic ulcer of left calf with fat layer exposed; L97.212 Non-pressure chronic ulcer of right calf with fat layer exposed; L97.312 Non-pressure chronic ulcer of right ankle with fat layer exposed; L97.522 Non-pressure chronic ulcer of other part of left foot with fat layer exposed; I87.333 Chronic venous hypertension (idiopathic) with ulcer and inflammation of bilateral lower extremity; D68.51 Activated protein C resistance; I82.503 Chronic embolism and thrombosis of unspecified deep veins of lower extremity, bilateral; I89.0 Lymphedema, not elsewhere classified | CPT/HCPCS: 11042; 11045 ==

== ENCOUNTER → 2019-01-24 | Outpatient (CLI) | payer BC | LOC: WOUNDCARE 08:21 | PROVIDERS: ATTEND Surgery | DX: L97.212 Non-pressure chronic ulcer of right calf with fat layer exposed (principal); L97.312 Non-pressure chronic ulcer of right ankle with fat layer exposed; L97.222 Non-pressure chronic ulcer of left calf with fat layer exposed; I87.333 Chronic venous hypertension (idiopathic) with ulcer and inflammation of bilateral lower extremity; D68.51 Activated protein C resistance; L97.522 Non-pressure chronic ulcer of other part of left foot with fat layer exposed; I82.503 Chronic embolism and thrombosis of unspecified deep veins of lower extremity, bilateral; I89.0 Lymphedema, not elsewhere classified; I96 Gangrene, not elsewhere classified | CPT/HCPCS: 11042; 11045 ==

== ENCOUNTER → 2019-01-28 | Outpatient (CLI) | payer BC | LOC: WOUNDCARE 08:21 | PROVIDERS: ATTEND Surgery | DX: L97.222 Non-pressure chronic ulcer of left calf with fat layer exposed (principal); L97.212 Non-pressure chronic ulcer of right calf with fat layer exposed; L97.312 Non-pressure chronic ulcer of right ankle with fat layer exposed; I87.333 Chronic venous hypertension (idiopathic) with ulcer and inflammation of bilateral lower extremity; D68.51 Activated protein C resistance; L97.522 Non-pressure chronic ulcer of other part of left foot with fat layer exposed; I82.503 Chronic embolism and thrombosis of unspecified deep veins of lower extremity, bilateral; I89.0 Lymphedema, not elsewhere classified; I96 Gangrene, not elsewhere classified | CPT/HCPCS: 11042; 11045 ==

== ENCOUNTER → 2019-01-31 | Outpatient (CLI) | payer BC | LOC: WOUNDCARE 08:22 | PROVIDERS: ATTEND Surgery | DX: L97.222 Non-pressure chronic ulcer of left calf with fat layer exposed (principal); L97.212 Non-pressure chronic ulcer of right calf with fat layer exposed; L97.312 Non-pressure chronic ulcer of right ankle with fat layer exposed; I87.333 Chronic venous hypertension (idiopathic) with ulcer and inflammation of bilateral lower extremity; D68.51 Activated protein C resistance; L97.522 Non-pressure chronic ulcer of other part of left foot with fat layer exposed; I82.503 Chronic embolism and thrombosis of unspecified deep veins of lower extremity, bilateral; I89.0 Lymphedema, not elsewhere classified | CPT/HCPCS: 11042; 11045 ==

== ENCOUNTER → 2019-02-08 | Outpatient (CLI) | payer BC | LOC: WOUNDCARE 15:24 | PROVIDERS: ATTEND Surgery | DX: I87.333 Chronic venous hypertension (idiopathic) with ulcer and inflammation of bilateral lower extremity (principal); L97.222 Non-pressure chronic ulcer of left calf with fat layer exposed; L97.212 Non-pressure chronic ulcer of right calf with fat layer exposed; L97.312 Non-pressure chronic ulcer of right ankle with fat layer exposed; I96 Gangrene, not elsewhere classified; L97.522 Non-pressure chronic ulcer of other part of left foot with fat layer exposed; D68.51 Activated protein C resistance; I89.0 Lymphedema, not elsewhere classified; I82.503 Chronic embolism and thrombosis of unspecified deep veins of lower extremity, bilateral | CPT/HCPCS: 11042; 11045 ==

== ENCOUNTER → 2019-02-09 | Outpatient (CLI) | payer BC | LOC: LAB 13:37 | PROVIDERS: ATTEND Surgery | DX: L97.222 Non-pressure chronic ulcer of left calf with fat layer exposed (principal) | CPT/HCPCS: 36415; 80170 ==

== ENCOUNTER → 2019-02-11 | Outpatient (CLI) | payer BC | LOC: WOUNDCARE 08:15 | PROVIDERS: ATTEND Surgery | DX: L97.222 Non-pressure chronic ulcer of left calf with fat layer exposed (principal); L97.212 Non-pressure chronic ulcer of right calf with fat layer exposed; L97.312 Non-pressure chronic ulcer of right ankle with fat layer exposed; I87.333 Chronic venous hypertension (idiopathic) with ulcer and inflammation of bilateral lower extremity; D68.51 Activated protein C resistance; L97.522 Non-pressure chronic ulcer of other part of left foot with fat layer exposed; I82.503 Chronic embolism and thrombosis of unspecified deep veins of lower extremity, bilateral; I89.0 Lymphedema, not elsewhere classified; E11.52 Type 2 diabetes mellitus with diabetic peripheral angiopathy with gangrene | CPT/HCPCS: 11042; 11045 ==

== ENCOUNTER → 2019-02-14 | Outpatient (CLI) | payer BC | LOC: WOUNDCARE 08:17 | PROVIDERS: ATTEND Surgery | DX: L97.222 Non-pressure chronic ulcer of left calf with fat layer exposed (principal); L97.212 Non-pressure chronic ulcer of right calf with fat layer exposed; L97.312 Non-pressure chronic ulcer of right ankle with fat layer exposed; I87.333 Chronic venous hypertension (idiopathic) with ulcer and inflammation of bilateral lower extremity; D68.51 Activated protein C resistance; L97.522 Non-pressure chronic ulcer of other part of left foot with fat layer exposed; I82.503 Chronic embolism and thrombosis of unspecified deep veins of lower extremity, bilateral; I89.0 Lymphedema, not elsewhere classified; I96 Gangrene, not elsewhere classified | CPT/HCPCS: 11042; 11045 ==

== ENCOUNTER → 2019-02-18 | Outpatient (CLI) | payer BC | LOC: WOUNDCARE 08:18 | PROVIDERS: ATTEND Surgery | DX: I96 Gangrene, not elsewhere classified (principal); L97.222 Non-pressure chronic ulcer of left calf with fat layer exposed; L97.212 Non-pressure chronic ulcer of right calf with fat layer exposed; L97.312 Non-pressure chronic ulcer of right ankle with fat layer exposed; L97.522 Non-pressure chronic ulcer of other part of left foot with fat layer exposed; I87.333 Chronic venous hypertension (idiopathic) with ulcer and inflammation of bilateral lower extremity; D68.51 Activated protein C resistance; I82.503 Chronic embolism and thrombosis of unspecified deep veins of lower extremity, bilateral; I89.0 Lymphedema, not elsewhere classified | CPT/HCPCS: 11042; 11045 ==

== ENCOUNTER → 2019-02-21 | Outpatient (CLI) | payer BC | LOC: WOUNDCARE 08:22 | PROVIDERS: ATTEND Surgery | DX: L97.222 Non-pressure chronic ulcer of left calf with fat layer exposed (principal); L97.212 Non-pressure chronic ulcer of right calf with fat layer exposed; L97.312 Non-pressure chronic ulcer of right ankle with fat layer exposed; I87.333 Chronic venous hypertension (idiopathic) with ulcer and inflammation of bilateral lower extremity; D68.51 Activated protein C resistance; L97.522 Non-pressure chronic ulcer of other part of left foot with fat layer exposed; I82.503 Chronic embolism and thrombosis of unspecified deep veins of lower extremity, bilateral; I89.0 Lymphedema, not elsewhere classified; I96 Gangrene, not elsewhere classified | CPT/HCPCS: 11042; 11045 ==

== ENCOUNTER → 2019-02-25 | Outpatient (CLI) | payer BC | LOC: LAB 09:37 | PROVIDERS: ATTEND Surgery | DX: L97.222 Non-pressure chronic ulcer of left calf with fat layer exposed (principal); L97.212 Non-pressure chronic ulcer of right calf with fat layer exposed; L97.312 Non-pressure chronic ulcer of right ankle with fat layer exposed; I87.333 Chronic venous hypertension (idiopathic) with ulcer and inflammation of bilateral lower extremity; D68.51 Activated protein C resistance; L97.522 Non-pressure chronic ulcer of other part of left foot with fat layer exposed; I82.503 Chronic embolism and thrombosis of unspecified deep veins of lower extremity, bilateral; I89.0 Lymphedema, not elsewhere classified | CPT/HCPCS: 36415; 80170 ==

== ENCOUNTER → 2019-02-25 | Outpatient (CLI) | payer BC | LOC: WOUNDCARE 08:11 | PROVIDERS: ATTEND Surgery | DX: L97.222 Non-pressure chronic ulcer of left calf with fat layer exposed (principal); L97.212 Non-pressure chronic ulcer of right calf with fat layer exposed; L97.312 Non-pressure chronic ulcer of right ankle with fat layer exposed; L97.522 Non-pressure chronic ulcer of other part of left foot with fat layer exposed; I87.333 Chronic venous hypertension (idiopathic) with ulcer and inflammation of bilateral lower extremity; D68.51 Activated protein C resistance; I82.503 Chronic embolism and thrombosis of unspecified deep veins of lower extremity, bilateral; I89.0 Lymphedema, not elsewhere classified | CPT/HCPCS: 11042; 11045 ==

== ENCOUNTER → 2019-02-28 | Outpatient (CLI) | payer BC | LOC: WOUNDCARE 08:17 | PROVIDERS: ATTEND Surgery | DX: L97.212 Non-pressure chronic ulcer of right calf with fat layer exposed (principal); L97.222 Non-pressure chronic ulcer of left calf with fat layer exposed; L97.312 Non-pressure chronic ulcer of right ankle with fat layer exposed; I87.333 Chronic venous hypertension (idiopathic) with ulcer and inflammation of bilateral lower extremity; D68.51 Activated protein C resistance; L97.522 Non-pressure chronic ulcer of other part of left foot with fat layer exposed; I82.503 Chronic embolism and thrombosis of unspecified deep veins of lower extremity, bilateral; I89.0 Lymphedema, not elsewhere classified; I96 Gangrene, not elsewhere classified | CPT/HCPCS: 11042; 11045 ==

== ENCOUNTER → 2019-03-04 | Outpatient (CLI) | payer BC | LOC: WOUNDCARE 08:13 | PROVIDERS: ATTEND Surgery | DX: L97.212 Non-pressure chronic ulcer of right calf with fat layer exposed (principal); L97.222 Non-pressure chronic ulcer of left calf with fat layer exposed; L97.312 Non-pressure chronic ulcer of right ankle with fat layer exposed; I87.333 Chronic venous hypertension (idiopathic) with ulcer and inflammation of bilateral lower extremity; D68.51 Activated protein C resistance; L97.522 Non-pressure chronic ulcer of other part of left foot with fat layer exposed; I82.503 Chronic embolism and thrombosis of unspecified deep veins of lower extremity, bilateral; I89.0 Lymphedema, not elsewhere classified | CPT/HCPCS: 11042; 11045 ==

== ENCOUNTER → 2019-03-07 | Outpatient (CLI) | payer BC | LOC: WOUNDCARE 08:18 | PROVIDERS: ATTEND Surgery | DX: L97.222 Non-pressure chronic ulcer of left calf with fat layer exposed (principal); L97.212 Non-pressure chronic ulcer of right calf with fat layer exposed; L97.312 Non-pressure chronic ulcer of right ankle with fat layer exposed; I87.333 Chronic venous hypertension (idiopathic) with ulcer and inflammation of bilateral lower extremity; D68.51 Activated protein C resistance; L97.522 Non-pressure chronic ulcer of other part of left foot with fat layer exposed; I82.503 Chronic embolism and thrombosis of unspecified deep veins of lower extremity, bilateral; I89.0 Lymphedema, not elsewhere classified; I96 Gangrene, not elsewhere classified | CPT/HCPCS: 11042; 11045 ==

== ENCOUNTER → 2019-03-11 | Outpatient (CLI) | payer BC | LOC: WOUNDCARE 08:18 | PROVIDERS: ATTEND Surgery | DX: I96 Gangrene, not elsewhere classified (principal); L97.222 Non-pressure chronic ulcer of left calf with fat layer exposed; L97.212 Non-pressure chronic ulcer of right calf with fat layer exposed; L97.312 Non-pressure chronic ulcer of right ankle with fat layer exposed; L97.522 Non-pressure chronic ulcer of other part of left foot with fat layer exposed; I87.333 Chronic venous hypertension (idiopathic) with ulcer and inflammation of bilateral lower extremity; D68.51 Activated protein C resistance; I82.503 Chronic embolism and thrombosis of unspecified deep veins of lower extremity, bilateral; I89.0 Lymphedema, not elsewhere classified | CPT/HCPCS: 11042; 11045 ==

== ENCOUNTER → 2019-03-14 | Outpatient (CLI) | payer BC | LOC: WOUNDCARE 09:03 | PROVIDERS: ATTEND Preventive Medicine Undersea and Hyperbaric Medicine | DX: R60.0 Localized edema (principal) | CPT/HCPCS: 11042; 11045 ==

== ENCOUNTER → 2019-03-17 | Outpatient (CLI) | payer BC | LOC: WOUNDCARE 08:20 | PROVIDERS: ATTEND Orthopaedic Surgery Hand Surgery | DX: I96 Gangrene, not elsewhere classified (principal); I87.333 Chronic venous hypertension (idiopathic) with ulcer and inflammation of bilateral lower extremity; L97.222 Non-pressure chronic ulcer of left calf with fat layer exposed; L97.212 Non-pressure chronic ulcer of right calf with fat layer exposed; L97.312 Non-pressure chronic ulcer of right ankle with fat layer exposed; L97.522 Non-pressure chronic ulcer of other part of left foot with fat layer exposed; D68.51 Activated protein C resistance; I89.0 Lymphedema, not elsewhere classified; I82.503 Chronic embolism and thrombosis of unspecified deep veins of lower extremity, bilateral | CPT/HCPCS: 11042; 11045 ==

== ENCOUNTER → 2019-03-21 | Outpatient (CLI) | payer BC | LOC: WOUNDCARE 08:17 | PROVIDERS: ATTEND Preventive Medicine Undersea and Hyperbaric Medicine | DX: L97.222 Non-pressure chronic ulcer of left calf with fat layer exposed (principal); L97.212 Non-pressure chronic ulcer of right calf with fat layer exposed; L97.312 Non-pressure chronic ulcer of right ankle with fat layer exposed; I87.333 Chronic venous hypertension (idiopathic) with ulcer and inflammation of bilateral lower extremity; L97.522 Non-pressure chronic ulcer of other part of left foot with fat layer exposed; D68.51 Activated protein C resistance; I82.503 Chronic embolism and thrombosis of unspecified deep veins of lower extremity, bilateral; I89.0 Lymphedema, not elsewhere classified; I96 Gangrene, not elsewhere classified | CPT/HCPCS: 11042; 11045; 97597 ==

== ENCOUNTER → 2019-03-24 | Outpatient (CLI) | payer BC | LOC: WOUNDCARE 08:17 | PROVIDERS: ATTEND Orthopaedic Surgery Hand Surgery | DX: I87.333 Chronic venous hypertension (idiopathic) with ulcer and inflammation of bilateral lower extremity (principal); L97.222 Non-pressure chronic ulcer of left calf with fat layer exposed; L97.212 Non-pressure chronic ulcer of right calf with fat layer exposed; L97.312 Non-pressure chronic ulcer of right ankle with fat layer exposed; L97.522 Non-pressure chronic ulcer of other part of left foot with fat layer exposed; D68.51 Activated protein C resistance; I89.0 Lymphedema, not elsewhere classified; I82.503 Chronic embolism and thrombosis of unspecified deep veins of lower extremity, bilateral | CPT/HCPCS: 11042; 11045 ==

== ENCOUNTER → 2019-03-30 | Outpatient (CLI) | payer BC | LOC: LAB 14:46 | PROVIDERS: ATTEND Surgery | DX: I87.333 Chronic venous hypertension (idiopathic) with ulcer and inflammation of bilateral lower extremity (principal); L97.222 Non-pressure chronic ulcer of left calf with fat layer exposed; L97.212 Non-pressure chronic ulcer of right calf with fat layer exposed; L97.312 Non-pressure chronic ulcer of right ankle with fat layer exposed; L97.522 Non-pressure chronic ulcer of other part of left foot with fat layer exposed; D68.51 Activated protein C resistance; I82.503 Chronic embolism and thrombosis of unspecified deep veins of lower extremity, bilateral; I89.0 Lymphedema, not elsewhere classified | CPT/HCPCS: 36415; 84134 ==

== ENCOUNTER → 2019-03-31 | Outpatient (CLI) | payer BC | LOC: WOUNDCARE 08:16 | PROVIDERS: ATTEND Orthopaedic Surgery Hand Surgery | DX: L97.222 Non-pressure chronic ulcer of left calf with fat layer exposed (principal); L97.212 Non-pressure chronic ulcer of right calf with fat layer exposed; L97.312 Non-pressure chronic ulcer of right ankle with fat layer exposed; L97.522 Non-pressure chronic ulcer of other part of left foot with fat layer exposed; D68.51 Activated protein C resistance; I82.503 Chronic embolism and thrombosis of unspecified deep veins of lower extremity, bilateral; I89.0 Lymphedema, not elsewhere classified | CPT/HCPCS: 11042; 87070; 87077; 87205 ==

== ENCOUNTER → 2019-04-04 | Outpatient (CLI) | payer BC | LOC: WOUNDCARE 13:06 | PROVIDERS: ATTEND Orthopaedic Surgery Hand Surgery | DX: L97.222 Non-pressure chronic ulcer of left calf with fat layer exposed (principal); L97.212 Non-pressure chronic ulcer of right calf with fat layer exposed; L97.312 Non-pressure chronic ulcer of right ankle with fat layer exposed; L97.522 Non-pressure chronic ulcer of other part of left foot with fat layer exposed; D68.51 Activated protein C resistance; I87.333 Chronic venous hypertension (idiopathic) with ulcer and inflammation of bilateral lower extremity; I82.503 Chronic embolism and thrombosis of unspecified deep veins of lower extremity, bilateral; I89.0 Lymphedema, not elsewhere classified; B95.62 Methicillin resistant Staphylococcus aureus infection as the cause of diseases classified elsewhere; B96.5 Pseudomonas (aeruginosa) (mallei) (pseudomallei) as the cause of diseases classified elsewhere | CPT/HCPCS: 11042; 11045 ==

== ENCOUNTER → 2019-04-07 | Outpatient (CLI) | payer BC | LOC: WOUNDCARE 08:09 | PROVIDERS: ATTEND Orthopaedic Surgery Hand Surgery | DX: L97.222 Non-pressure chronic ulcer of left calf with fat layer exposed (principal); L97.212 Non-pressure chronic ulcer of right calf with fat layer exposed; L97.312 Non-pressure chronic ulcer of right ankle with fat layer exposed; D68.51 Activated protein C resistance; I87.333 Chronic venous hypertension (idiopathic) with ulcer and inflammation of bilateral lower extremity; I82.503 Chronic embolism and thrombosis of unspecified deep veins of lower extremity, bilateral; I89.0 Lymphedema, not elsewhere classified; L84 Corns and callosities; B95.62 Methicillin resistant Staphylococcus aureus infection as the cause of diseases classified elsewhere; B96.5 Pseudomonas (aeruginosa) (mallei) (pseudomallei) as the cause of diseases classified elsewhere | CPT/HCPCS: 11042; 11045 ==

== ENCOUNTER → 2019-04-11 | Outpatient (CLI) | payer BC | LOC: WOUNDCARE 08:37 | PROVIDERS: ATTEND Preventive Medicine Undersea and Hyperbaric Medicine | DX: L97.222 Non-pressure chronic ulcer of left calf with fat layer exposed (principal); L97.212 Non-pressure chronic ulcer of right calf with fat layer exposed; L97.312 Non-pressure chronic ulcer of right ankle with fat layer exposed; L97.522 Non-pressure chronic ulcer of other part of left foot with fat layer exposed; D68.51 Activated protein C resistance; I87.333 Chronic venous hypertension (idiopathic) with ulcer and inflammation of bilateral lower extremity; I82.503 Chronic embolism and thrombosis of unspecified deep veins of lower extremity, bilateral; I89.0 Lymphedema, not elsewhere classified; L84 Corns and callosities; B95.62 Methicillin resistant Staphylococcus aureus infection as the cause of diseases classified elsewhere; B96.5 Pseudomonas (aeruginosa) (mallei) (pseudomallei) as the cause of diseases classified elsewhere | CPT/HCPCS: 11042; 11045 ==

== ENCOUNTER → 2019-04-14 | Outpatient (CLI) | payer BC | LOC: WOUNDCARE 08:23 | PROVIDERS: ATTEND Orthopaedic Surgery Hand Surgery | DX: L97.222 Non-pressure chronic ulcer of left calf with fat layer exposed (principal); L97.212 Non-pressure chronic ulcer of right calf with fat layer exposed; L97.312 Non-pressure chronic ulcer of right ankle with fat layer exposed; L97.522 Non-pressure chronic ulcer of other part of left foot with fat layer exposed; D68.51 Activated protein C resistance; I87.333 Chronic venous hypertension (idiopathic) with ulcer and inflammation of bilateral lower extremity; I82.503 Chronic embolism and thrombosis of unspecified deep veins of lower extremity, bilateral; I89.0 Lymphedema, not elsewhere classified; L84 Corns and callosities; B95.62 Methicillin resistant Staphylococcus aureus infection as the cause of diseases classified elsewhere; B96.5 Pseudomonas (aeruginosa) (mallei) (pseudomallei) as the cause of diseases classified elsewhere | CPT/HCPCS: 11042; 11045 ==

== ENCOUNTER → 2019-04-18 | Outpatient (CLI) | payer BC | LOC: WOUNDCARE 08:43 | PROVIDERS: ATTEND Preventive Medicine Undersea and Hyperbaric Medicine | DX: L97.222 Non-pressure chronic ulcer of left calf with fat layer exposed (principal); L97.212 Non-pressure chronic ulcer of right calf with fat layer exposed; L97.312 Non-pressure chronic ulcer of right ankle with fat layer exposed; L97.522 Non-pressure chronic ulcer of other part of left foot with fat layer exposed; D68.51 Activated protein C resistance; I87.333 Chronic venous hypertension (idiopathic) with ulcer and inflammation of bilateral lower extremity; I82.503 Chronic embolism and thrombosis of unspecified deep veins of lower extremity, bilateral; I89.0 Lymphedema, not elsewhere classified; L84 Corns and callosities; B95.62 Methicillin resistant Staphylococcus aureus infection as the cause of diseases classified elsewhere; B96.5 Pseudomonas (aeruginosa) (mallei) (pseudomallei) as the cause of diseases classified elsewhere | CPT/HCPCS: 11042; 11045; 87070; 87075; 87077; 87205 ==

== ENCOUNTER → 2019-04-21 | Outpatient (CLI) | payer BC | LOC: WOUNDCARE 08:18 | PROVIDERS: ATTEND Orthopaedic Surgery Hand Surgery | DX: L97.222 Non-pressure chronic ulcer of left calf with fat layer exposed (principal); L97.212 Non-pressure chronic ulcer of right calf with fat layer exposed; L97.312 Non-pressure chronic ulcer of right ankle with fat layer exposed; I87.333 Chronic venous hypertension (idiopathic) with ulcer and inflammation of bilateral lower extremity; L97.522 Non-pressure chronic ulcer of other part of left foot with fat layer exposed; D68.51 Activated protein C resistance; I82.503 Chronic embolism and thrombosis of unspecified deep veins of lower extremity, bilateral; I89.0 Lymphedema, not elsewhere classified; L84 Corns and callosities; B95.62 Methicillin resistant Staphylococcus aureus infection as the cause of diseases classified elsewhere; B96.5 Pseudomonas (aeruginosa) (mallei) (pseudomallei) as the cause of diseases classified elsewhere | CPT/HCPCS: 11042; 11045 ==

== ENCOUNTER → 2019-04-25 | Outpatient (CLI) | payer BC | LOC: WOUNDCARE 08:21 | PROVIDERS: ATTEND Preventive Medicine Undersea and Hyperbaric Medicine | DX: L97.222 Non-pressure chronic ulcer of left calf with fat layer exposed (principal); L97.212 Non-pressure chronic ulcer of right calf with fat layer exposed; L97.312 Non-pressure chronic ulcer of right ankle with fat layer exposed; I87.333 Chronic venous hypertension (idiopathic) with ulcer and inflammation of bilateral lower extremity; L97.522 Non-pressure chronic ulcer of other part of left foot with fat layer exposed; D68.51 Activated protein C resistance; I82.503 Chronic embolism and thrombosis of unspecified deep veins of lower extremity, bilateral; I89.0 Lymphedema, not elsewhere classified; L84 Corns and callosities; B95.62 Methicillin resistant Staphylococcus aureus infection as the cause of diseases classified elsewhere; B96.5 Pseudomonas (aeruginosa) (mallei) (pseudomallei) as the cause of diseases classified elsewhere | CPT/HCPCS: 11042; 11045 ==

== ENCOUNTER → 2019-04-28 | Outpatient (CLI) | payer BC | LOC: WOUNDCARE 08:22 | PROVIDERS: ATTEND Orthopaedic Surgery Hand Surgery | DX: L97.222 Non-pressure chronic ulcer of left calf with fat layer exposed (principal); L97.212 Non-pressure chronic ulcer of right calf with fat layer exposed; L97.322 Non-pressure chronic ulcer of left ankle with fat layer exposed; I87.333 Chronic venous hypertension (idiopathic) with ulcer and inflammation of bilateral lower extremity; D68.51 Activated protein C resistance; L97.522 Non-pressure chronic ulcer of other part of left foot with fat layer exposed; I82.503 Chronic embolism and thrombosis of unspecified deep veins of lower extremity, bilateral; I89.0 Lymphedema, not elsewhere classified; B95.62 Methicillin resistant Staphylococcus aureus infection as the cause of diseases classified elsewhere; B96.5 Pseudomonas (aeruginosa) (mallei) (pseudomallei) as the cause of diseases classified elsewhere; L84 Corns and callosities; I96 Gangrene, not elsewhere classified | CPT/HCPCS: 11042; 11045 ==

== ENCOUNTER → 2019-05-05 | Outpatient (CLI) | payer BC | LOC: WOUNDCARE 08:18 | PROVIDERS: ATTEND Orthopaedic Surgery Hand Surgery | DX: I96 Gangrene, not elsewhere classified (principal); L97.222 Non-pressure chronic ulcer of left calf with fat layer exposed; L97.212 Non-pressure chronic ulcer of right calf with fat layer exposed; L97.312 Non-pressure chronic ulcer of right ankle with fat layer exposed; L97.522 Non-pressure chronic ulcer of other part of left foot with fat layer exposed; I87.333 Chronic venous hypertension (idiopathic) with ulcer and inflammation of bilateral lower extremity; D68.51 Activated protein C resistance; I82.503 Chronic embolism and thrombosis of unspecified deep veins of lower extremity, bilateral; I89.0 Lymphedema, not elsewhere classified; B95.62 Methicillin resistant Staphylococcus aureus infection as the cause of diseases classified elsewhere; B96.5 Pseudomonas (aeruginosa) (mallei) (pseudomallei) as the cause of diseases classified elsewhere; L84 Corns and callosities; D64.9 Anemia, unspecified; E44.1 Mild protein-calorie malnutrition | CPT/HCPCS: 11042; 11045 ==

== ENCOUNTER → 2019-05-09 | Outpatient (CLI) | payer BC | LOC: WOUNDCARE 08:56 | PROVIDERS: ATTEND Surgery | DX: L97.222 Non-pressure chronic ulcer of left calf with fat layer exposed (principal); L97.212 Non-pressure chronic ulcer of right calf with fat layer exposed; L97.312 Non-pressure chronic ulcer of right ankle with fat layer exposed; I87.333 Chronic venous hypertension (idiopathic) with ulcer and inflammation of bilateral lower extremity; D68.51 Activated protein C resistance; L97.522 Non-pressure chronic ulcer of other part of left foot with fat layer exposed; I82.503 Chronic embolism and thrombosis of unspecified deep veins of lower extremity, bilateral; I89.0 Lymphedema, not elsewhere classified; B95.62 Methicillin resistant Staphylococcus aureus infection as the cause of diseases classified elsewhere; B96.5 Pseudomonas (aeruginosa) (mallei) (pseudomallei) as the cause of diseases classified elsewhere; D64.9 Anemia, unspecified; I96 Gangrene, not elsewhere classified | CPT/HCPCS: 11042; 11045 ==

== ENCOUNTER → 2019-05-12 | Outpatient (CLI) | payer BC | LOC: WOUNDCARE 08:42 | PROVIDERS: ATTEND Surgery | DX: I96 Gangrene, not elsewhere classified (principal); L97.222 Non-pressure chronic ulcer of left calf with fat layer exposed; L97.212 Non-pressure chronic ulcer of right calf with fat layer exposed; L97.312 Non-pressure chronic ulcer of right ankle with fat layer exposed; L97.522 Non-pressure chronic ulcer of other part of left foot with fat layer exposed; I87.333 Chronic venous hypertension (idiopathic) with ulcer and inflammation of bilateral lower extremity; D68.51 Activated protein C resistance; I82.503 Chronic embolism and thrombosis of unspecified deep veins of lower extremity, bilateral; I89.0 Lymphedema, not elsewhere classified; B95.62 Methicillin resistant Staphylococcus aureus infection as the cause of diseases classified elsewhere; B96.5 Pseudomonas (aeruginosa) (mallei) (pseudomallei) as the cause of diseases classified elsewhere; D64.9 Anemia, unspecified | CPT/HCPCS: 11042; 11045 ==

== ENCOUNTER → 2019-05-16 | Outpatient (CLI) | payer BC | LOC: WOUNDCARE 08:45 | PROVIDERS: ATTEND Surgery | DX: L97.222 Non-pressure chronic ulcer of left calf with fat layer exposed (principal); L97.212 Non-pressure chronic ulcer of right calf with fat layer exposed; L97.312 Non-pressure chronic ulcer of right ankle with fat layer exposed; L97.522 Non-pressure chronic ulcer of other part of left foot with fat layer exposed; I87.313 Chronic venous hypertension (idiopathic) with ulcer of bilateral lower extremity; D68.51 Activated protein C resistance; I82.503 Chronic embolism and thrombosis of unspecified deep veins of lower extremity, bilateral; I89.0 Lymphedema, not elsewhere classified; B95.62 Methicillin resistant Staphylococcus aureus infection as the cause of diseases classified elsewhere; B96.5 Pseudomonas (aeruginosa) (mallei) (pseudomallei) as the cause of diseases classified elsewhere; D64.9 Anemia, unspecified | CPT/HCPCS: 11042; 11045 ==

== ENCOUNTER → 2019-05-19 | Outpatient (CLI) | payer BC | LOC: WOUNDCARE 08:18 | PROVIDERS: ATTEND Surgery | DX: L97.222 Non-pressure chronic ulcer of left calf with fat layer exposed (principal); L97.212 Non-pressure chronic ulcer of right calf with fat layer exposed; L97.312 Non-pressure chronic ulcer of right ankle with fat layer exposed; L97.522 Non-pressure chronic ulcer of other part of left foot with fat layer exposed; I87.313 Chronic venous hypertension (idiopathic) with ulcer of bilateral lower extremity; D68.51 Activated protein C resistance; I82.503 Chronic embolism and thrombosis of unspecified deep veins of lower extremity, bilateral; I89.0 Lymphedema, not elsewhere classified; B95.62 Methicillin resistant Staphylococcus aureus infection as the cause of diseases classified elsewhere; B96.5 Pseudomonas (aeruginosa) (mallei) (pseudomallei) as the cause of diseases classified elsewhere; D64.9 Anemia, unspecified | CPT/HCPCS: 11042; 11045 ==

== ENCOUNTER → 2019-05-23 | Outpatient (CLI) | payer BC | LOC: WOUNDCARE 08:48 | PROVIDERS: ATTEND Surgery | DX: L97.222 Non-pressure chronic ulcer of left calf with fat layer exposed (principal); L97.212 Non-pressure chronic ulcer of right calf with fat layer exposed; L97.312 Non-pressure chronic ulcer of right ankle with fat layer exposed; L97.522 Non-pressure chronic ulcer of other part of left foot with fat layer exposed; I87.313 Chronic venous hypertension (idiopathic) with ulcer of bilateral lower extremity; D68.51 Activated protein C resistance; I82.503 Chronic embolism and thrombosis of unspecified deep veins of lower extremity, bilateral; I89.0 Lymphedema, not elsewhere classified; B95.62 Methicillin resistant Staphylococcus aureus infection as the cause of diseases classified elsewhere; B96.5 Pseudomonas (aeruginosa) (mallei) (pseudomallei) as the cause of diseases classified elsewhere; D64.9 Anemia, unspecified | CPT/HCPCS: 11042; 11045 ==

== ENCOUNTER → 2019-05-26 | Outpatient (CLI) | payer BC | LOC: WOUNDCARE 08:47 | PROVIDERS: ATTEND Surgery | DX: L97.222 Non-pressure chronic ulcer of left calf with fat layer exposed (principal); L97.212 Non-pressure chronic ulcer of right calf with fat layer exposed; L97.312 Non-pressure chronic ulcer of right ankle with fat layer exposed; L97.522 Non-pressure chronic ulcer of other part of left foot with fat layer exposed; I87.313 Chronic venous hypertension (idiopathic) with ulcer of bilateral lower extremity; D68.51 Activated protein C resistance; I82.503 Chronic embolism and thrombosis of unspecified deep veins of lower extremity, bilateral; I89.0 Lymphedema, not elsewhere classified; B95.62 Methicillin resistant Staphylococcus aureus infection as the cause of diseases classified elsewhere; B96.5 Pseudomonas (aeruginosa) (mallei) (pseudomallei) as the cause of diseases classified elsewhere; D64.9 Anemia, unspecified | CPT/HCPCS: 11042; 11045; 87070; 87077; 87186; 87205 ==

== ENCOUNTER → 2019-05-26 | Outpatient (CLI) | payer BC | LOC: LAB 10:21 | PROVIDERS: ATTEND Surgery | DX: L97.222 Non-pressure chronic ulcer of left calf with fat layer exposed (principal); L97.212 Non-pressure chronic ulcer of right calf with fat layer exposed; L97.312 Non-pressure chronic ulcer of right ankle with fat layer exposed; I87.333 Chronic venous hypertension (idiopathic) with ulcer and inflammation of bilateral lower extremity; D68.51 Activated protein C resistance; L97.522 Non-pressure chronic ulcer of other part of left foot with fat layer exposed; I82.503 Chronic embolism and thrombosis of unspecified deep veins of lower extremity, bilateral; I89.0 Lymphedema, not elsewhere classified; B95.62 Methicillin resistant Staphylococcus aureus infection as the cause of diseases classified elsewhere; B96.5 Pseudomonas (aeruginosa) (mallei) (pseudomallei) as the cause of diseases classified elsewhere; D64.9 Anemia, unspecified | CPT/HCPCS: 36415; 84134; 86850; 86900; 86901; 86920 ==

== ENCOUNTER → 2019-05-30 | Outpatient (CLI) | payer BC | LOC: WOUNDCARE 08:41 | PROVIDERS: ATTEND Surgery | DX: L97.222 Non-pressure chronic ulcer of left calf with fat layer exposed (principal); L97.212 Non-pressure chronic ulcer of right calf with fat layer exposed; L97.312 Non-pressure chronic ulcer of right ankle with fat layer exposed; L97.522 Non-pressure chronic ulcer of other part of left foot with fat layer exposed; I87.313 Chronic venous hypertension (idiopathic) with ulcer of bilateral lower extremity; D68.51 Activated protein C resistance; I82.503 Chronic embolism and thrombosis of unspecified deep veins of lower extremity, bilateral; I89.0 Lymphedema, not elsewhere classified; B95.62 Methicillin resistant Staphylococcus aureus infection as the cause of diseases classified elsewhere; B96.5 Pseudomonas (aeruginosa) (mallei) (pseudomallei) as the cause of diseases classified elsewhere; D64.9 Anemia, unspecified | CPT/HCPCS: 11042; 11045 ==

== ENCOUNTER → 2019-06-06 | Outpatient (CLI) | payer BC | LOC: WOUNDCARE 08:46 | PROVIDERS: ATTEND Surgery | DX: L97.222 Non-pressure chronic ulcer of left calf with fat layer exposed (principal); L97.212 Non-pressure chronic ulcer of right calf with fat layer exposed; L97.312 Non-pressure chronic ulcer of right ankle with fat layer exposed; L97.522 Non-pressure chronic ulcer of other part of left foot with fat layer exposed; I87.313 Chronic venous hypertension (idiopathic) with ulcer of bilateral lower extremity; D68.51 Activated protein C resistance; I82.503 Chronic embolism and thrombosis of unspecified deep veins of lower extremity, bilateral; I89.0 Lymphedema, not elsewhere classified; B95.62 Methicillin resistant Staphylococcus aureus infection as the cause of diseases classified elsewhere; B96.5 Pseudomonas (aeruginosa) (mallei) (pseudomallei) as the cause of diseases classified elsewhere; D64.9 Anemia, unspecified | CPT/HCPCS: 11042; 11045 ==

== ENCOUNTER → 2019-06-13 | Outpatient (CLI) | payer BC | LOC: WOUNDCARE 08:45 | PROVIDERS: ATTEND Surgery | DX: L97.222 Non-pressure chronic ulcer of left calf with fat layer exposed (principal); L97.212 Non-pressure chronic ulcer of right calf with fat layer exposed; L97.312 Non-pressure chronic ulcer of right ankle with fat layer exposed; L97.522 Non-pressure chronic ulcer of other part of left foot with fat layer exposed; I87.313 Chronic venous hypertension (idiopathic) with ulcer of bilateral lower extremity; D68.51 Activated protein C resistance; I82.503 Chronic embolism and thrombosis of unspecified deep veins of lower extremity, bilateral; I89.0 Lymphedema, not elsewhere classified; B95.62 Methicillin resistant Staphylococcus aureus infection as the cause of diseases classified elsewhere; B96.5 Pseudomonas (aeruginosa) (mallei) (pseudomallei) as the cause of diseases classified elsewhere; D64.9 Anemia, unspecified | CPT/HCPCS: 11042; 11045 ==

== ENCOUNTER → 2019-06-20 | Outpatient (CLI) | payer BC | LOC: WOUNDCARE 08:46 | PROVIDERS: ATTEND Surgery | DX: L97.222 Non-pressure chronic ulcer of left calf with fat layer exposed (principal); L97.212 Non-pressure chronic ulcer of right calf with fat layer exposed; L97.312 Non-pressure chronic ulcer of right ankle with fat layer exposed; L97.522 Non-pressure chronic ulcer of other part of left foot with fat layer exposed; I87.313 Chronic venous hypertension (idiopathic) with ulcer of bilateral lower extremity; D68.51 Activated protein C resistance; I82.503 Chronic embolism and thrombosis of unspecified deep veins of lower extremity, bilateral; I89.0 Lymphedema, not elsewhere classified; B95.62 Methicillin resistant Staphylococcus aureus infection as the cause of diseases classified elsewhere; B96.5 Pseudomonas (aeruginosa) (mallei) (pseudomallei) as the cause of diseases classified elsewhere; D64.9 Anemia, unspecified | CPT/HCPCS: 11042; 11045 ==

== ENCOUNTER 2019-06-27 10:58 | Outpatient (RCR) | payer BC ==
[2019-04-04 10:12] LABS: BASOPHILS % (AUTO) 1 % (0-10); EOSINOPHILS # (AUTO) 0.2 10^3/uL (0.0-0.3); EOSINOPHILS % (AUTO) 5 % (0-10); HEMATOCRIT 25 % (40-54); HEMOGLOBIN 7.4 G/DL (13.3-17.7); LYMPHOCYTES % (AUTO) 24 % (12-44); MEAN CORPUSCULAR HGB CONC 30 G/DL (32-36); MEAN CORPUSCULAR VOLUME 76 FL (80-99); MEAN PLATELET VOLUME 8.9 FL (7.4-10.4); MONOCYTES # (AUTO) 0.3 X 10^3 (0.0-1.0); MONOCYTES % (AUTO) 8 % (0-12); NEUTROPHILS # (AUTO) 2.6 X 10^3 (1.8-7.8); NEUTROPHILS % (AUTO) 63 % (42-75); PLATELET COUNT 261 10^3/uL (130-400); RED CELL DISTRIBUTION WIDTH 15.7 % (10.0-14.5); WHITE BLOOD COUNT 4.1 10^3/uL (4.3-11.0)
[2019-04-04 10:13] LABS: MEAN CORPUSCULAR HEMOGLOBIN 22 PG (25-34)
[2019-04-04 10:40] LABS: ALBUMIN 3.4 GM/DL (3.2-4.5); BILIRUBIN,TOTAL 0.1 MG/DL (0.1-1.0); CALCIUM 8.4 MG/DL (8.5-10.1); CREATININE SERUM 1.29 MG/DL (0.60-1.30); POTASSIUM 4.5 MMOL/L (3.6-5.0); TOTAL PROTEIN 6.7 GM/DL (6.4-8.2)
[2019-05-02 10:38] LABS: BASOPHILS % (AUTO) 0 % (0-10); EOSINOPHILS # (AUTO) 0.2 10^3/uL (0.0-0.3); EOSINOPHILS % (AUTO) 4 % (0-10); HEMATOCRIT 25 % (40-54); HEMOGLOBIN 7.2 G/DL (13.3-17.7); LYMPHOCYTES # (AUTO) 0.8 X 10^3 (1.0-4.0); LYMPHOCYTES % (AUTO) 18 % (12-44); MEAN CORPUSCULAR HEMOGLOBIN 21 PG (25-34); MEAN CORPUSCULAR HGB CONC 29 G/DL (32-36); MEAN CORPUSCULAR VOLUME 72 FL (80-99); MEAN PLATELET VOLUME 9.4 FL (7.4-10.4); MONOCYTES # (AUTO) 0.5 X 10^3 (0.0-1.0); MONOCYTES % (AUTO) 10 % (0-12); NEUTROPHILS # (AUTO) 3.2 X 10^3 (1.8-7.8); NEUTROPHILS % (AUTO) 68 % (42-75); PLATELET COUNT 256 10^3/uL (130-400); RED CELL DISTRIBUTION WIDTH 16.1 % (10.0-14.5); WHITE BLOOD COUNT 4.6 10^3/uL (4.3-11.0)
[2019-05-02 10:55] LABS: ALANINE AMINOTRANSFERASE 17 U/L (0-55); ALBUMIN 3.2 GM/DL (3.2-4.5); ALKALINE PHOSPHATASE 131 U/L (40-136); BILIRUBIN,TOTAL 0.1 MG/DL (0.1-1.0); BUN/CREATININE RATIO 22; CALCIUM 8.2 MG/DL (8.5-10.1); CARBON DIOXIDE 23 MMOL/L (21-32); CHLORIDE 109 MMOL/L (98-107); CREATININE SERUM 1.18 MG/DL (0.60-1.30); GFR ESTIMATED > 60; GLUCOSE 90 MG/DL (70-105); POTASSIUM 4.6 MMOL/L (3.6-5.0); SODIUM 136 MMOL/L (135-145); TOTAL PROTEIN 6.1 GM/DL (6.4-8.2)
[2019-05-26 10:44] LABS: BASOPHILS % (AUTO) 1 % (0-10); EOSINOPHILS # (AUTO) 0.1 10^3/uL (0.0-0.3); EOSINOPHILS % (AUTO) 3 % (0-10); HEMATOCRIT 21 % (40-54); LYMPHOCYTES # (AUTO) 0.9 X 10^3 (1.0-4.0); LYMPHOCYTES % (AUTO) 21 % (12-44); MEAN CORPUSCULAR HEMOGLOBIN 20 PG (25-34); MEAN CORPUSCULAR HGB CONC 28 G/DL (32-36); MEAN CORPUSCULAR VOLUME 69 FL (80-99); MEAN PLATELET VOLUME 9.6 FL (7.4-10.4); MONOCYTES # (AUTO) 0.5 X 10^3 (0.0-1.0); MONOCYTES % (AUTO) 11 % (0-12); NEUTROPHILS # (AUTO) 2.9 X 10^3 (1.8-7.8); NEUTROPHILS % (AUTO) 66 % (42-75); PLATELET COUNT 281 10^3/uL (130-400); RED CELL DISTRIBUTION WIDTH 17.1 % (10.0-14.5); WHITE BLOOD COUNT 4.3 10^3/uL (4.3-11.0)
[2019-05-26 10:46] LABS: HEMOGLOBIN 5.9 G/DL (13.3-17.7)
[2019-05-26 11:06] LABS: ALBUMIN 3.1 GM/DL (3.2-4.5); BILIRUBIN,TOTAL 0.2 MG/DL (0.1-1.0); CALCIUM 7.9 MG/DL (8.5-10.1); CREATININE SERUM 1.25 MG/DL (0.60-1.30); POTASSIUM 4.7 MMOL/L (3.6-5.0)
[~2019-06-27 10:58] MED LIST changes: +FERRIC CARBOXYMALTOSE (CANCER) 750 MG in NS (IVPB) CANCER CENTER 250 ML IV SCH; +NS IV 500 ML (CANCER CENTER) 500 ML ONE
[2019-06-27 11:23] LABS: BASOPHILS % (AUTO) 1 % (0-10); EOSINOPHILS # (AUTO) 0.1 10^3/uL (0.0-0.3); EOSINOPHILS % (AUTO) 2 % (0-10); HEMATOCRIT 24 % (40-54); HEMOGLOBIN 7.3 G/DL (13.3-17.7); LYMPHOCYTES # (AUTO) 1.1 X 10^3 (1.0-4.0); LYMPHOCYTES % (AUTO) 28 % (12-44); MEAN CORPUSCULAR HEMOGLOBIN 23 PG (25-34); MEAN CORPUSCULAR HGB CONC 30 G/DL (32-36); MEAN CORPUSCULAR VOLUME 75 FL (80-99); MEAN PLATELET VOLUME 9.1 FL (7.4-10.4); MONOCYTES # (AUTO) 0.4 X 10^3 (0.0-1.0); MONOCYTES % (AUTO) 9 % (0-12); NEUTROPHILS # (AUTO) 2.4 X 10^3 (1.8-7.8); NEUTROPHILS % (AUTO) 61 % (42-75); PLATELET COUNT 202 10^3/uL (130-400); RED CELL DISTRIBUTION WIDTH 29.2 % (10.0-14.5)
[2019-06-27 12:44] LABS: ALANINE AMINOTRANSFERASE 17 U/L (0-55); ALBUMIN 3.4 GM/DL (3.2-4.5); ALKALINE PHOSPHATASE 95 U/L (40-136); BILIRUBIN,TOTAL 0.3 MG/DL (0.1-1.0); BUN/CREATININE RATIO 17; CALCIUM 8.2 MG/DL (8.5-10.1); CARBON DIOXIDE 25 MMOL/L (21-32); CHLORIDE 105 MMOL/L (98-107); CREATININE SERUM 1.19 MG/DL (0.60-1.30); GFR ESTIMATED > 60; GLUCOSE 97 MG/DL (70-105); POTASSIUM 4.1 MMOL/L (3.6-5.0); SODIUM 138 MMOL/L (135-145); TOTAL PROTEIN 6.2 GM/DL (6.4-8.2)
== END 2019-07-03 | disposition home or self-care (01) ==
LOC: ONC 10:58
PROVIDERS: ATTEND Internal Medicine Hematology & Oncology
DX: D68.51 Activated protein C resistance (principal); D50.0 Iron deficiency anemia secondary to blood loss (chronic); I82.503 Chronic embolism and thrombosis of unspecified deep veins of lower extremity, bilateral; K29.70 Gastritis, unspecified, without bleeding; E66.01 Morbid (severe) obesity due to excess calories; Z68.39 Body mass index [BMI] 39.0-39.9, adult; Z79.01 Long term (current) use of anticoagulants; Z79.82 Long term (current) use of aspirin; Z79.899 Other long term (current) drug therapy
CPT/HCPCS: 36415; 36430; 80053; 82728; 83540; 85025; 96365

== ENCOUNTER → 2019-06-27 | Outpatient (CLI) | payer BC | LOC: WOUNDCARE 08:45 | PROVIDERS: ATTEND Surgery | DX: L97.222 Non-pressure chronic ulcer of left calf with fat layer exposed (principal); L97.212 Non-pressure chronic ulcer of right calf with fat layer exposed; L97.312 Non-pressure chronic ulcer of right ankle with fat layer exposed; L97.522 Non-pressure chronic ulcer of other part of left foot with fat layer exposed; I87.313 Chronic venous hypertension (idiopathic) with ulcer of bilateral lower extremity; D68.51 Activated protein C resistance; I82.503 Chronic embolism and thrombosis of unspecified deep veins of lower extremity, bilateral; I89.0 Lymphedema, not elsewhere classified; B95.62 Methicillin resistant Staphylococcus aureus infection as the cause of diseases classified elsewhere; B96.5 Pseudomonas (aeruginosa) (mallei) (pseudomallei) as the cause of diseases classified elsewhere; D64.9 Anemia, unspecified | CPT/HCPCS: 11042; 11045 ==

== ENCOUNTER → 2019-07-04 | Outpatient (CLI) | payer BC ==
[~2019-07-04] MED LIST changes: -FERRIC CARBOXYMALTOSE (CANCER) 750 MG in NS (IVPB) CANCER CENTER 250 ML IV SCH; -NS IV 500 ML (CANCER CENTER) 500 ML ONE
== END ==
LOC: WOUNDCARE 08:40
PROVIDERS: ATTEND Surgery
DX: L97.222 Non-pressure chronic ulcer of left calf with fat layer exposed (principal); L97.212 Non-pressure chronic ulcer of right calf with fat layer exposed; L97.312 Non-pressure chronic ulcer of right ankle with fat layer exposed; L97.522 Non-pressure chronic ulcer of other part of left foot with fat layer exposed; I87.313 Chronic venous hypertension (idiopathic) with ulcer of bilateral lower extremity; D68.51 Activated protein C resistance; I82.503 Chronic embolism and thrombosis of unspecified deep veins of lower extremity, bilateral; I89.0 Lymphedema, not elsewhere classified; B95.62 Methicillin resistant Staphylococcus aureus infection as the cause of diseases classified elsewhere; B96.5 Pseudomonas (aeruginosa) (mallei) (pseudomallei) as the cause of diseases classified elsewhere; D64.9 Anemia, unspecified
CPT/HCPCS: 11042; 11045

== ENCOUNTER → 2019-07-11 | Outpatient (CLI) | payer BC | LOC: WOUNDCARE 08:47 | PROVIDERS: ATTEND Surgery | DX: L97.222 Non-pressure chronic ulcer of left calf with fat layer exposed (principal); L97.212 Non-pressure chronic ulcer of right calf with fat layer exposed; L97.312 Non-pressure chronic ulcer of right ankle with fat layer exposed; L97.522 Non-pressure chronic ulcer of other part of left foot with fat layer exposed; I87.313 Chronic venous hypertension (idiopathic) with ulcer of bilateral lower extremity; D68.51 Activated protein C resistance; I82.503 Chronic embolism and thrombosis of unspecified deep veins of lower extremity, bilateral; I89.0 Lymphedema, not elsewhere classified; B95.62 Methicillin resistant Staphylococcus aureus infection as the cause of diseases classified elsewhere; B96.5 Pseudomonas (aeruginosa) (mallei) (pseudomallei) as the cause of diseases classified elsewhere; D64.9 Anemia, unspecified | CPT/HCPCS: 11042; 11045 ==

== ENCOUNTER → 2019-07-18 | Outpatient (CLI) | payer BC | LOC: WOUNDCARE 08:48 | PROVIDERS: ATTEND Surgery | DX: L97.222 Non-pressure chronic ulcer of left calf with fat layer exposed (principal); L97.212 Non-pressure chronic ulcer of right calf with fat layer exposed; L97.312 Non-pressure chronic ulcer of right ankle with fat layer exposed; L97.522 Non-pressure chronic ulcer of other part of left foot with fat layer exposed; I87.313 Chronic venous hypertension (idiopathic) with ulcer of bilateral lower extremity; D68.51 Activated protein C resistance; I82.503 Chronic embolism and thrombosis of unspecified deep veins of lower extremity, bilateral; I89.0 Lymphedema, not elsewhere classified; B95.62 Methicillin resistant Staphylococcus aureus infection as the cause of diseases classified elsewhere; B96.5 Pseudomonas (aeruginosa) (mallei) (pseudomallei) as the cause of diseases classified elsewhere; D64.9 Anemia, unspecified | CPT/HCPCS: 11042; 11045 ==

== ENCOUNTER → 2019-07-25 | Outpatient (CLI) | payer BC | LOC: WOUNDCARE 08:46 | PROVIDERS: ATTEND Surgery | DX: L97.222 Non-pressure chronic ulcer of left calf with fat layer exposed (principal); L97.212 Non-pressure chronic ulcer of right calf with fat layer exposed; L97.312 Non-pressure chronic ulcer of right ankle with fat layer exposed; L97.522 Non-pressure chronic ulcer of other part of left foot with fat layer exposed; I87.313 Chronic venous hypertension (idiopathic) with ulcer of bilateral lower extremity; D68.51 Activated protein C resistance; I82.503 Chronic embolism and thrombosis of unspecified deep veins of lower extremity, bilateral; I89.0 Lymphedema, not elsewhere classified; B95.62 Methicillin resistant Staphylococcus aureus infection as the cause of diseases classified elsewhere; B96.5 Pseudomonas (aeruginosa) (mallei) (pseudomallei) as the cause of diseases classified elsewhere; D64.9 Anemia, unspecified; Z79.01 Long term (current) use of anticoagulants | CPT/HCPCS: 11042; 11045 ==

== ENCOUNTER 2019-07-27 18:37 | Emergency (ER) | payer BC ==
[~2019-07-27] VITALS: Ht 197.5 cm; Wt 116.0 kg
[2019-07-27] MEDS ORDERED: TETANUS,DIPTH,PERTUSS P/F (BOOSTRIX) 0.5 ML VIAL IM ONE (19:00)
--- NOTE | 2019-07-27 19:06 | ED Fall/Injury ---
General Chief Complaint: Trauma-Non Activation Stated Complaint: NECK PAIN,FALL Nursing Triage Note: Pt reports falling in garage at approximately 1710. Pt reports hitting forehead and c/o neck pain. Pt c/o bruise to R palm and has abrasion to L forearm. Pt c/o dizziness and headache. Source: patient History of Present Illness Date Seen by Provider: July 27, 2019 Time Seen by Provider: 18:40 Initial Comments PT ARRIVES VIA POV FROM HOME STATES HE WAS WALKING OUT TO HIS GARAGE, AND TRIPPED, AND FELL FORWARD "FACE FIRST" HITTING HIS FOREHEAD ON THE GROUND/DIRT OCCURRED AROUND 1710 NO LOSS OF CONSCIOUSNESS MAIN COMPLAINT IS NECK PAIN --IMMEDIATELY PLACED IN CERVICAL COLLAR AND LAID FLAT ALSO C/O FRONTAL HEADACHE NO DIZZINESS NO NAUSEA/VOMITING NO VISION CHANGES NO PARESTHESIAS OR MOTOR DEFICITS C/O LEFT ELBOW/FOREARM PAIN WITH ABRASION ALSO C/O PAIN TO PALM OF RIGHT HAND NO HIP OR LEG PAIN NO BACK PAIN NO CHEST OR ABDOMINAL PAIN NO SHORTNESS OF BREATH HAS NOT TAKEN ANYTHING FOR PAIN, BUT IS ON OXYCODONE DAILY FOR CHRONIC BACK AND LEG PAIN. 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 ALARCON HAS CHRONIC LEG AND FOOT WOUNDS WHICH CAUSE CHRONIC PAIN--SEES DR. HUTCHINSON NO FEVER OR RECENT ILLNESS NO KNOWN SICK CONTACTS OR EXPOSURE TO CORONAVIRUS NO RECENT TRAVEL Location Injury Occurred: home PCP: [facility], [place]. USED TO BE A DR. TOLBERT PATIENT, UNTIL HIS RECENT SKILLED NURSING HEMATOLOGY: DR. ALARCON WOUND CARE: DR. HUTCHINSON Allergies and Home Medications Allergies Coded Allergies: clindamycin (Verified Allergy, Severe, ANAPHYLAXIS, 02/24/18) morphine (Verified Allergy, Mild, N/V, 02/24/18) vancomycin (Verified Allergy, Unknown, 07/27/19) Home Medications Apixaban 2.5 Mg Tablet, 2.5 MG PO BID, (Reported) Oxycodone HCl 10 Mg Tablet, 20 MG PO Q8H PRN for PAIN-MILD TO MODERATE, (Reported) take 2 (10mg) tabs Pantoprazole Sodium 40 Mg Tablet.dr, 40 MG PO DAILY, (Reported) Patient Home Medication List Home Medication List Reviewed: Yes Review of Systems Review of Systems Constitutional: no symptoms reported; No chills, No diaphoresis, No dizziness, No weakness Eyes: No Symptoms Reported Ears, Nose, Mouth, Throat: no symptoms reported Respiratory: no symptoms reported Cardiovascular: no symptoms reported Gastrointestinal: no symptoms reported Genitourinary: no symptoms reported Musculoskeletal: see HPI, neck pain Skin: see HPI, other (ABRASION TO LEFT FOREARM/ELBOW AREA) Psychiatric/Neurological: See HPI, Headache; Denies Numbness, Denies P aresthesia, Denies Tingling, Denies Tremors Past Oxevjgk-Mcstuo-Ctidao Hx Past Med/Social Hx: Reviewed and Corrections made Patient Social History Alcohol Use: Past History (HISTORY OF ABUSE/HEAVY, CLAIMS "NOT FOR 20 YEARS" PER PT ON 07/27/19) Recreational Drug Use: No Smoking Status: Never a Smoker 2nd Hand Smoke Exposure: No Recent Foreign Travel: No Contact w/Someone Who Travel: No Recent Infectious Disease Expo: No Recent Hopitalizations: No Immunizations Up To Date Tetanus Booster (TDap): Unknown Seasonal Allergies Seasonal Allergies: Yes Past Medical History Surgeries: Yes (BILAT LEG VEIN STRIPPING;EGD'S/COLONOSCOPIES/POLYPECTOMIES:WOUND DEBRIDEMEN) Tonsillectomy, Vascular Surgery Respiratory: No Currently Using CPAP: No Currently Using BIPAP: No Cardiac: Yes Chronic Edema/Swelling, Deep Vein Thrombosis Neurological: No Reproductive Disorders: No Sexually Transmitted Disease: No HIV/AIDS: No Genitourinary: Yes Kidney Stones Gastrointestinal: Yes (GASTROPARESIS;GASTRIC ULCERS/GASTRITIS;DIVERTICULAR DZ NOTED ON C-SCOPE) Gastroesophageal Reflux, Diverticulosis, Hemorrhoids, Polyps, Ulcer Musculoskeletal: Yes (COMPRESSION FRACTURE IN BACK--T [address] SCAN) Degenerate Disk Disease, Arthritis, Chronic Back Pain, Fractures Endocrine: No HEENT: No Cancer: No Psychosocial: No Integumentary: Yes (CHRONIC BILAT LEG & FOOT ULCER-? 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 0.0oz. [id number]; 29.00 BMI Method: General Appearance: no apparent distress, obese HEENT: PERRL/EOMI, normal ENT inspection, TMs normal, pharynx normal, other (MINOR ABRASIONS TO FOREHEAD. NO BONY TENDERNESS OR DEFORMITY. NO HEMATOMA AT THIS TIME) Neck: limited range of motion, tender lateral, tender midline, other (PLACED IN CERVICAL COLLAR ON ARRIVAL) Cardiovascular: regular rate, rhythm, no murmur Respiratory: chest non-tender, normal breath sounds, no respiratory distress, no accessory muscle use Gastrointestinal: non tender, soft Back: normal inspection, no CVA tenderness, no vertebral tenderness Extremities: other (BOTH LOWER LEGS WITH APPARENT EDEMA, BOTH LEGS WITH HEAVY DRESSINGS AND SUBHA WRAPS--SEROUS DRAINAGE ON DRESSINGS AND SOAKED THROUGH SOCK ON LEFT--PT STATES IS NORMAL. BOTH LOWER LEGS ADN FEET ARE TENDER--PT STATES IS NORMAL AND WERE NOT INJURED WHEN HE FELL. NO KNEE OR HIP PAIN OR TENDERNESS. 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 NO HEMATOMA. ) [place] Coma Score Best Eye Response: (4) Open Spontaneously Best Verbal Response: (5) Oriented Best Motor Response: (6) Obeys Commands Callie Total: 15 Progress/Results/Core Measures Results/Orders Lab Results Laboratory Tests Test 07/27/19 18:58 07/27/19 20:57 Range/Units White Blood Count 4.2 L 4.3-11.0 10^3/uL Red Blood Count 3.10 L 4.35-5.85 10^6/uL Hemoglobin 7.8 L 13.3-17.7 G/DL Hematocrit 27 L 40-54 % Mean Corpuscular Volume 87 80-99 FL Mean Corpuscular Hemoglobin 25 25-34 PG Mean Corpuscular Hemoglobin Concent 29 L 32-36 G/DL Red Cell Distribution Width 10.0-14.5 % Platelet Count 291 130-400 10^3/uL Mean Platelet Volume 9.2 7.4-10.4 FL Neutrophils (%) (Auto) 56 42-75 % Lymphocytes (%) (Auto) 28 12-44 % Monocytes (%) (Auto) 11 0-12 % Eosinophils (%) (Auto) 4 0-10 % Basophils (%) (Auto) 1 0-10 % Neutrophils # (Auto) 2.4 1.8-7.8 X 10^3 Lymphocytes # (Auto) 1.2 1.0-4.0 X 10^3 Monocytes # (Auto) 0.5 0.0-1.0 X 10^3 Eosinophils # (Auto) 0.2 0.0-0.3 10^3/uL Basophils # (Auto) 0.0 0.0-0.1 10^3/uL Prothrombin Time 15.6 H 12.2-14.7 SEC INR Comment 1.2 0.8-1.4 Activated Partial Thromboplast Time 36 H 24-35 SEC Sodium Level 137 135-145 MMOL/L Potassium Level 4.4 3.6-5.0 MMOL/L Chloride Level 110 H 98-107 MMOL/L Carbon Dioxide Level 20 L 21-32 MMOL/L Anion Gap 7 5-14 MMOL/L Blood Urea Nitrogen 17 7-18 MG/DL Creatinine 1.25 0.60-1.30 MG/DL Estimat Glomerular Filtration Rate 59 BUN/Creatinine Ratio 14 Glucose Level 98 70-105 MG/DL Calcium Level 8.4 L 8.5-10.1 MG/DL Corrected Calcium 8.6 8.5-10.1 MG/DL Magnesium Level 2.0 1.6-2.4 MG/DL Total Bilirubin 0.2 0.1-1.0 MG/DL Aspartate Amino Transf (AST/SGOT) 17 5-34 U/L Alanine Aminotransferase (ALT/SGPT) 14 0-55 U/L Alkaline Phosphatase 82 40-136 U/L Total Protein 6.5 6.4-8.2 GM/DL Albumin 3.7 3.2-4.5 GM/DL Serum Alcohol < 10 <10 MG/DL Urine Color YELLOW Urine Clarity CLEAR Urine pH 5.5 5-9 Urine Specific [place] 1.020 1.016-1.022 Urine Protein NEGATIVE NEGATIVE Urine Glucose (UA) NEGATIVE NEGATIVE Urine Ketones NEGATIVE NEGATIVE Urine Nitrite NEGATIVE NEGATIVE Urine Bilirubin NEGATIVE NEGATIVE Urine Urobilinogen 0.2 < = 1.0 MG/DL Urine Leukocyte Esterase NEGATIVE NEGATIVE Urine RBC (Auto) NEGATIVE NEGATIVE Urine RBC 0-2 /HPF Urine WBC 2-5 /HPF Urine Crystals NONE /LPF Urine Bacteria TRACE /HPF Urine Casts NONE /LPF Urine Mucus SMALL H /LPF Urine Culture Indicated NO Urine Opiates Screen NEGATIVE NEGATIVE Urine Oxycodone Screen POSITIVE H NEGATIVE Urine Methadone Screen POSITIVE H NEGATIVE Urine Propoxyphene Screen NEGATIVE NEGATIVE Urine Barbiturates Screen NEGATIVE NEGATIVE Ur Tricyclic Antidepressants Screen NEGATIVE NEGATIVE Urine Phencyclidine Screen NEGATIVE NEGATIVE Urine Amphetamines Screen NEGATIVE NEGATIVE Urine Methamphetamines Screen NEGATIVE NEGATIVE Urine Benzodiazepines Screen NEGATIVE NEGATIVE Urine Cocaine Screen NEGATIVE NEGATIVE Urine Cannabinoids Screen NEGATIVE NEGATIVE My Orders Orders - MONSTER LOVELL DO Ed Iv/Invasive Line Start (07/27/19 18:47) Monitor-Rhythm Ecg Trace Only (07/27/19 18:47) Ct Head/Face/Cervical Wo (07/27/19 18:47) Ct Thoracic/Lumbar Spine Wo (07/27/19 18:47) Chest 1 View, Ap/Pa Only (07/27/19 18:47) Forearm, Left, 2 Views (07/27/19 18:47) Elbow, Left, 3 Views (07/27/19 18:47) Hand, Right, 3 Views (07/27/19 18:47) Pelvis (07/27/19 18:47) Alcohol (07/27/19 18:47) Cbc With Automated Diff (07/27/19 18:47) Comprehensive Metabolic Panel (07/27/19 18:47) Drug Screen Stat (Urine) (07/27/19 18:47) Magnesium (07/27/19 18:47) Protime With Inr (07/27/19 18:47) Partial Thromboplastin Time (07/27/19 18:47) Ua Culture If Indicated (07/27/19 18:47) Cervical Collar (07/27/19 18:47) Dipht,Pertuss(Acell),Tet Adult (Boostrix (07/27/19 19:00) Medications Given in ED Vital Signs/I&O 07/27/19 07/27/19 18:40 22:08 Temp 37.1 37.1 Pulse 70 59 Resp 12 18 B/P (MAP) 137/79 (98) 132/71 (98) Pulse Ox 99 98 O2 Delivery Room Air Room Air Blood Pressure Mean: 98 Progress Progress Note : Progress Note MARKED DELAY IN OBTAINING XRAY AND CT REPORTS DUE TO COMPUTER SYSTEM MALFUNCTION CERVICAL COLLAR REMOVED AFTER OBTAINING CT REPORT FROM RADIOLOGIST PT STATES NECK IS NOT HURTING BAD NOW UNEVENTFUL ER STAY OTHERWISE, AND PT VOICED NO OTHER COMPLAINTS, AND STATES HE DID NOT NEED PAIN MEDICATION AT THIS TIME. PT STATES HE HAS OXYCODONE AND FLEXERIL AT HOME. HE DENIES TAKING ANY METHADONE Diagnostic Imaging Comments ALL PER RADIOLOGIST REPORTS AT 2118: CT THORACIC AND LUMBAR SPINE-- IMPRESSION: 1. There is a mild compression deformity of superior endplate of T11. The age of this injury is indeterminate and could be acute or subacute in nature. MRI would be recommended for further study. 2. There is no acute bony abnormality noted otherwise. 3. There is no evidence for a high-grade central stenosis. CT HEAD/MAXILLOFACIALS/CERVICAL SPINE-- IMPRESSION: 1. No CT evidence of an acute intracranial abnormality. 2. No evidence of calvarial or facial fracture. 3. No CT evidence of an acute cervical spine fracture or traumatic malalignment. There are no findings to suggest high-grade cervical canal stenosis. XRAYS RIGHT HAND-- IMPRESSION: 1. Remote healed 5th metacarpal fracture 2. Mild background osteoarthritic changes 3. No acute fracture, traumatic malalignment or joint dislocation. 4. Tiny density at the base of the 3rd proximal phalanx likely reflects a soft tissue calcification. Correlate for any point tenderness at that location. XRAYS LEFT ELBOW AND FOREARM--IMPRESSION: 1. No findings of elbow malalignment or acute fracture though evaluation is suboptimal given an oblique view of the elbow on the lateral view. Assessment for fat pad elevation cannot be performed. IMPRESSION: 1. No evidence of left radial or ulnar fracture or malalignment. PELVIS XRAY-- IMPRESSION: There is no evidence for an acute bony abnormality. CXR--IMPRESSION: There is no evidence for an acute cardiopulmonary abnormality. Reviewed: Reviewed by Ri Departure Communication (Admissions) 2121--SPOKE WITH DR. ALARCON--SHE STATES THAT PT'S HGB IS HIS NORMAL BASELINE, AND HE HAS NO SIGNS OF EXCESSIVE BLEEDING OR BRUISING, THAT PT COULD CONTINUE HIS ELIQUIS, AND SHE WILL FOLLOW UP IN OFFICE FOR REPEAT CBC. Impression Primary Impression: S/P FALL FROM STANDING Additional Impressions: Minor head injury without loss of consciousness Multiple contusions Minor abrasion [id number] (DPT) vaccination administered at current visit Chronic anemia ELIQUIS THERAPY Chronic prescription opiate use Chronic back pain CHRONIC LEG AND FOOT WOUNDS CERVICAL SPINE STRAIN Disposition: 01 HOME, SELF-CARE Condition: Stable Departure-Patient Inst. Referrals: SHANI HUTCHINSON MD ,LOCAL PHYSICIAN (PCP) Primary Care Physician DEANA ALARCON MD [facility] Patient Instructions: Chronic Pain (DC), Diphtheria and Tetanus Toxoids, and Acellular Pertussis Vaccine, Low Back Pain (DC), Minor Head Injury (DC), Neck Sprain (DC), Preventing Falls in the Older Adult, Skin Abrasions (DC) Add. Discharge Instructions: CONTINUE YOUR PAIN MEDICATION AND MUSCLE RELAXANT PRESCRIBED ICE TO SORE AREAS AT 20 MINUTE INTERVALS FOR 24 HOURS, THEN ALTERNATE ICE AND HEAT TO SORE AREAS AT 20 MINUTE INTERVALS FOLLOW UP WITH DR. ALARCON TO RECHECK YOUR HEMOGLOBIN LEVELS FOLLOW UP WITH DR. HUTCHINSON FOR WOUND CARE All discharge instructions reviewed with patient and/or family. Voiced understanding. MONSTER LOVELL DO July 27, 2019 19:06
[2019-07-27 19:09] LABS: BASOPHILS % (AUTO) 1 % (0-10); EOSINOPHILS # (AUTO) 0.2 10^3/uL (0.0-0.3); EOSINOPHILS % (AUTO) 4 % (0-10); HEMATOCRIT 27 % (40-54); HEMOGLOBIN 7.8 G/DL (13.3-17.7); LYMPHOCYTES # (AUTO) 1.2 X 10^3 (1.0-4.0); LYMPHOCYTES % (AUTO) 28 % (12-44); MEAN CORPUSCULAR HEMOGLOBIN 25 PG (25-34); MEAN CORPUSCULAR HGB CONC 29 G/DL (32-36); MEAN CORPUSCULAR VOLUME 87 FL (80-99); MEAN PLATELET VOLUME 9.2 FL (7.4-10.4); MONOCYTES # (AUTO) 0.5 X 10^3 (0.0-1.0); MONOCYTES % (AUTO) 11 % (0-12); NEUTROPHILS # (AUTO) 2.4 X 10^3 (1.8-7.8); NEUTROPHILS % (AUTO) 56 % (42-75); PLATELET COUNT 291 10^3/uL (130-400); WHITE BLOOD COUNT 4.2 10^3/uL (4.3-11.0)
[2019-07-27 19:19] LABS: ALBUMIN 3.7 GM/DL (3.2-4.5); CHLORIDE 110 MMOL/L (98-107); POTASSIUM 4.4 MMOL/L (3.6-5.0); SODIUM 137 MMOL/L (135-145)
[2019-07-27 19:21] LABS: CALCIUM 8.4 MG/DL (8.5-10.1); INR 1.2 (0.8-1.4); PROTHROMBIN TIME PATIENT 15.6 SEC (12.2-14.7)
[2019-07-27 19:22] LABS: GLUCOSE 98 MG/DL (70-105); TOTAL PROTEIN 6.5 GM/DL (6.4-8.2)
[2019-07-27 19:23] LABS: CARBON DIOXIDE 20 MMOL/L (21-32)
[2019-07-27 19:24] LABS: BILIRUBIN,TOTAL 0.2 MG/DL (0.1-1.0)
[2019-07-27 19:25] LABS: ALKALINE PHOSPHATASE 82 U/L (40-136)
[2019-07-27 19:26] LABS: CREATININE SERUM 1.25 MG/DL (0.60-1.30); GFR ESTIMATED 59
[2019-07-27 19:27] LABS: BUN/CREATININE RATIO 14
[2019-07-27 19:29] LABS: ALANINE AMINOTRANSFERASE 14 U/L (0-55)
--- OUTSIDE RECORDS SUMMARY | 2019-07-27 20:33 | XMS REPORT | Continuity of Care Document ---
Demographics Preferred Language Unknown Marital Status Unknown Taoism Affiliation Unknown Race Unknown Ethnic Group Unknown Author Organization Unknown Address Unknown Phone Unavailable Allergies Active Description Code Type Severity Reaction Onset Reported/Identified Relationship to Patient Clinical Status Yes clindamycin [id number] Drug Aller gy Severe ANAPHYLAXIS 02/24/2018 Yes morphine [id number] Drug Allergy Mild N/V 02/24/2018 Medications There [...] V12.51 02/23/2014 DIDI LLANOS, KARIN R Ot 338. 29 02/23/2014 DIDI LLANOS, KARIN R Ot 722. 52 02/23/2014 DIDI LLANOS, KARIN R Ot 729. 2 02/27/2014 DIDI LLANOS, KARIN R Ot 719. 47 03/14/2014 DIDI LLANOS, KARIN R Ot 719. 47 12/18/2017 MARY PERSAUD APRN Ot I87.2 VENOUS INSUFFICIENCY (CHRONIC) (PERIPHER 12/18/2017 MARY PERSAUD APRN Ot L97.212 NON-PRESSURE CHRONIC ULCER OF RIGHT CALF 12/18/2017 MARY PERSAUD APRN Ot L97.222 NON-PRESSURE CHRONIC ULCER OF LEFT CALF 12/18/2017 MARY PERSAUD APRN Ot L97.312 NON-PRS CHRONIC ULCER OF RIGHT ANKLE W F 12/18/2017 MARY PERSAUD APRN Ot L97.522 NON-PRS CHRONIC ULCER OTH PRT LEFT FOOT 12/18/2017 MARY PERSAUD APRN Ot I87.2 VENOUS INSUFFICIENCY (CHRONIC) (PERIPHER 12/18/2017 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 L97.212 NON-PRESSURE CHRONIC ULCER OF RIGHT CALF 12/18/2017 MARY PERSAUD APRN Ot L97.222 NON-PRESSURE CHRONIC ULCER OF LEFT CALF 12/18/2017 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 L97.312 NON-PRS CHRONIC ULCER OF RIGHT ANKLE W F 12/18/2017 MARY PERSAUD APRN Ot L97.522 NON-PRS CHRONIC ULCER OTH PRT LEFT FOOT 12/21/2017 Ot 285.9 ANEM IA NOS 12/21/2017 Ot V12.51 HX- VENOUS THROMBOSIS EMBOLISM 12/21/2017 DIDI LLANOS, KARIN R Ot 338. 29 OTHER CHRONIC PAIN 12/21/2017 DIDI LLANOS, KARIN R Ot 722. 52 LUMB/LUMBOSAC DISC DEGEN 12/21/2017 KARIN TOLBERT MD R Ot 729. 2 NEURALGIA/NEURITIS NOS 12/21/2017 DIDI LLANOS, KARIN R Ot 719. 47 JOINT PAIN-ANKLE 12/21/2017 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 I87.2 VENOUS INSUFFICIENCY (CHRONIC) (PERIPHER 12/21/2017 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 L97.212 NON-PRESSURE CHRONIC ULCER OF RIGHT CALF 12/21/2017 MARY PERSAUD APRN Ot L97.222 NON-PRESSURE CHRONIC ULCER OF LEFT CALF 12/21/2017 MARY PERSAUD APRN Ot L97.312 NON-PRS CHRONIC ULCER OF RIGHT ANKLE W F 12/21/2017 MARY PERASUD APRN Ot L97.522 NON-PRS CHRONIC ULCER OTH [...] RIGHT ANKLE W F 12/23/2017 SHANI HUTCHINSON MD, Ot L97.522 NON-PRS CHRONIC ULCER OTH PRT LEFT FOOT 12/23/2017 Ot 285.9 ANEM IA NOS 12/23/2017 Ot V12.51 HX- VENOUS THROMBOSIS EMBOLISM 12/23/2017 DIDI LLANOS, KARIN Lange Ot 338. 29 OTHER CHRONIC PAIN 12/23/2017 DIDI LLANOS, KARIN Lange Ot 722. 52 LUMB/LUMBOSAC DISC DEGEN 12/23/2017 DIDI LLANOS, KARIN R Ot 729. 2 NEURALGIA/NEURITIS NOS 12/23/2017 DIDI LLANOS, KARIN R Ot 719. 47 JOINT PAIN-ANKLE 12/23/2017 MARY PERSAUD APRN Ot I87.2 VENOUS INSUFFICIENCY (CHRONIC) (PERIPHER 12/23/2017 MARY PERSAUD APRN Ot L97.212 NON-PRESSURE CHRONIC [...] OTH PRT LEFT FOOT 01/04/2018 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 I87.2 VENOUS INSUFFICIENCY (CHRONIC) (PERIPHER 01/04/2018 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 L97.212 NON-PRESSURE CHRONIC ULCER OF RIGHT CALF 01/04/2018 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 L97.222 NON-PRESSURE CHRONIC ULCER OF LEFT CALF 01/04/2018 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 L97.312 NON-PRS CHRONIC ULCER OF RIGHT ANKLE W F 01/04/2018 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 L97.522 NON-PRS CHRONIC ULCER OTH PRT LEFT FOOT 01/05/2018 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 I87.333 CHRONIC VENOUS HTN W ULCER AND INFLAM OF 01/05/2018 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 L97.212 NON-PRESSURE CHRONIC ULCER OF RIGHT CALF 01/05/2018 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 L97.222 NON-PRESSURE CHRONIC ULCER OF LEFT CALF 01/05/2018 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 L97.312 NON-PRS CHRONIC ULCER OF RIGHT ANKLE W F 01/05/2018 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 L97.522 NON-PRS CHRONIC ULCER OTH PRT [...] RIGHT ANKLE W F 01/06/2018 SHANI HUTCHINSON MD Ot L97.522 NON-PRS CHRONIC [...] ULCER AND INFLAM OF 01/06/2018 SHANI HUTCHINSON MD, Ot L97.222 NON-PRESSURE CHRONIC ULCER OF LEFT CALF 01/11/2018 SHANI HUTCHINSON MD, Ot I87.333 CHRONIC VENOUS HTN W ULCER AND INFLAM OF 01/11/2018 SHANI HUTCHINSON MD Ot L97.222 NON-PRESSURE CHRONIC ULCER OF LEFT CALF 01/11/2018 SHANI HUTCHINSON MD, Ot D68.51 ACTIVATED PROTEIN C RESISTANCE 01/11/2018 SHANI HUTCHINSON MD Ot I87.333 CHRONIC VENOUS HTN W ULCER AND INFLAM OF 01/11/2018 SHANI HUTCHINSON MD, Ot L97.212 NON-PRESSURE CHRONIC ULCER OF RIGHT CALF 01/11/2018 SHANI HUTCHINSON MD Ot L97.222 NON-PRESSURE CHRONIC ULCER OF LEFT CALF 01/11/2018 SHANI HUTCHINSON MD Ot L97.312 NON-PRS CHRONIC ULCER OF RIGHT ANKLE W F 01/11/2018 SHANI HUTCHINSON MD, Ot L97.522 NON-PRS CHRONIC ULCER OTH PRT LEFT FOOT 01/13/2018 MARY PERSAUD APRN Ot D68.51 ACTIVATED PROTEIN C RESISTANCE 01/13/2018 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 I87.333 CHRONIC VENOUS HTN W ULCER AND INFLAM OF 01/13/2018 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 L97.212 NON-PRESSURE CHRONIC ULCER OF RIGHT CALF 01/13/2018 MARY PERSAUD APRN Ot L97.222 NON-PRESSURE CHRONIC ULCER OF LEFT CALF 01/13/2018 MARY PERSAUD APRN Ot L97.312 NON-PRS CHRONIC ULCER OF RIGHT ANKLE W F 01/13/2018 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 L97.522 NON-PRS CHRONIC ULCER OTH PRT LEFT FOOT 01/15/2018 MARY PERSAUD APRN Ot I87.333 CHRONIC VENOUS HTN W ULCER AND INFLAM OF 01/15/2018 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 L97.212 NON-PRESSURE CHRONIC ULCER OF RIGHT CALF 01/15/2018 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 L97.222 NON-PRESSURE CHRONIC ULCER OF LEFT CALF 01/15/2018 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 L97.312 NON-PRS CHRONIC ULCER OF RIGHT ANKLE W F 01/15/2018 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 L97.522 NON-PRS CHRONIC ULCER OTH PRT LEFT FOOT 01/21/2018 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 D68.51 ACTIVATED PROTEIN C RESISTANCE 01/21/2018 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 I87.333 CHRONIC VENOUS HTN W ULCER AND INFLAM OF 01/21/2018 MARY PERSAUD R [employer]OMOTIONS ASSISTANT SALES MARKETING Ot L97.212 NON-PRESSURE CHRONIC ULCER OF RIGHT CALF 01/21/2018 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 L97.222 NON-PRESSURE CHRONIC ULCER OF LEFT CALF 01/21/2018 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 L97.312 NON-PRS CHRONIC ULCER OF RIGHT ANKLE W F 01/21/2018 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 L97.522 NON-PRS CHRONIC ULCER OTH PRT LEFT FOOT 01/27/2018 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 D68.51 ACTIVATED PROTEIN C RESISTANCE 01/27/2018 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 I87.333 CHRONIC VENOUS HTN W ULCER AND INFLAM OF 01/27/2018 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 L97.212 NON-PRESSURE CHRONIC ULCER OF RIGHT CALF 01/27/2018 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 L97.222 NON-PRESSURE CHRONIC ULCER OF LEFT CALF 01/27/2018 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 L97.312 NON-PRS CHRONIC ULCER OF RIGHT ANKLE W F 01/27/2018 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 L97.522 NON-PRS CHRONIC ULCER OTH PRT LEFT FOOT 02/02/2018 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 D68.51 ACTIVATED PROTEIN C RESISTANCE 02/02/2018 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 I87.333 CHRONIC VENOUS HTN W ULCER AND INFLAM OF 02/02/2018 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 L97.212 NON-PRESSURE CHRONIC ULCER OF RIGHT CALF 02/02/2018 MARY PERSAUD R [employer]OMOTIONS ASSISTANT SALES MARKETING Ot L97.222 NON-PRESSURE CHRONIC ULCER OF LEFT CALF 02/02/2018 MARY PERSAUD APRN Ot L97.312 NON-PRS CHRONIC ULCER OF RIGHT ANKLE W F 02/02/2018 MARY PERSAUD APRN Ot L97.522 NON-PRS CHRONIC ULCER OTH PRT LEFT FOOT 02/08/2018 Ot 285.9 ANEM IA NOS 02/08/2018 Ot V12.51 HX- VENOUS THROMBOSIS EMBOLISM 02/08/2018 KARIN TOLBERT MD Ot 338. 29 OTHER CHRONIC PAIN 02/08/2018 KARIN TOLBERT MD Ot 722. 52 LUMB/LUMBOSAC DISC DEGEN 02/08/2018 KARIN TOLBERT MD R Ot 729. 2 NEURALGIA/NEURITIS NOS 02/08/2018 KARIN TOLBERT MD Ot 719. 47 JOINT PAIN-ANKLE 02/08/2018 MARY PERSAUD APRN Ot [...] LEFT CALF 02/08/2018 MARY PERSAUD APRN Ot I87.333 CHRONIC VENOUS HTN W ULCER AND INFLAM OF 02/08/2018 MARY PERSAUD APRN Ot L97.212 NON-PRESSURE CHRONIC ULCER OF RIGHT CALF 02/08/2018 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 L97.222 NON-PRESSURE CHRONIC ULCER OF LEFT [...] OTH PRT LEFT FOOT 02/08/2018 MARY PERSAUD APRN Ot D68.51 ACTIVATED PROTEIN C RESISTANCE 02/08/2018 MARY PERSAUD APRN Ot I87.333 CHRONIC VENOUS HTN W ULCER AND INFLAM OF 02/08/2018 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 L97.212 NON-PRESSURE CHRONIC ULCER OF RIGHT CALF 02/08/2018 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 L97.222 NON-PRESSURE CHRONIC ULCER OF LEFT CALF 02/08/2018 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 L97.312 NON-PRS CHRONIC ULCER OF RIGHT ANKLE W F 02/08/2018 MARY PERSAUD APRN Ot L97.522 NON-PRS CHRONIC ULCER OTH PRT LEFT FOOT 02/08/2018 CORI, MARY R PROMOTIONS ASSISTANT SALES MARKETING Ot D68.51 ACTIVATED PROTEIN C RESISTANCE 02/08/2018 MARY PERSAUD R PROMOTIONS ASSISTANT SALES MARKETING Ot I87.333 CHRONIC VENOUS HTN W ULCER AND INFLAM OF 02/08/2018 MARY PERSAUD R PROMOTIONS ASSISTANT SALES MARKETING Ot L97.212 NON-PRESSURE CHRONIC ULCER OF RIGHT CALF 02/08/2018 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 L97.222 NON-PRESSURE CHRONIC ULCER OF LEFT CALF 02/08/2018 MARY PERSAUD R PROMOTIONS ASSISTANT SALES MARKETING Ot L97.312 NON-PRS CHRONIC ULCER OF RIGHT ANKLE W F 02/08/2018 CORI MARY R PROMOTIONS ASSISTANT SALES MARKETING Ot L97.522 NON-PRS CHRONIC ULCER OTH PRT LEFT FOOT 02/08/2018 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 D68.51 ACTIVATED PROTEIN C RESISTANCE 02/08/2018 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 I87.333 CHRONIC VENOUS HTN W ULCER AND INFLAM OF 02/08/2018 CORI MARY R PROMOTIONS ASSISTANT SALES MARKETING Ot L97.212 NON-PRESSURE CHRONIC ULCER OF RIGHT CALF 02/08/2018 MARY PERSAUD R PROMOTIONS ASSISTANT SALES MARKETING Ot L97.222 NON-PRESSURE CHRONIC ULCER OF LEFT CALF 02/08/2018 CORI MARY R PROMOTIONS ASSISTANT SALES MARKETING Ot L97.312 NON-PRS CHRONIC ULCER OF RIGHT ANKLE W F 02/08/2018 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 L97.522 NON-PRS CHRONIC ULCER OTH PRT LEFT FOOT 02/10/2018 MARY PERSAUD R PROMOTIONS ASSISTANT SALES MARKETING Ot D68.51 ACTIVATED PROTEIN C RESISTANCE 02/10/2018 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 I87.333 CHRONIC VENOUS HTN W ULCER AND INFLAM OF 02/10/2018 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 L97.212 NON-PRESSURE CHRONIC ULCER OF RIGHT CALF 02/10/2018 CORI MARY R PROMOTIONS ASSISTANT SALES MARKETING Ot L97.222 NON-PRESSURE CHRONIC ULCER OF LEFT CALF 02/10/2018 MARY PERSAUD R [employer]OMOTIONS ASSISTANT SALES MARKETING Ot L97.312 NON-PRS CHRONIC ULCER OF RIGHT ANKLE W F 02/10/2018 MARY PERSAUD R [employer]OMOTIONS ASSISTANT SALES MARKETING Ot L97.522 NON-PRS CHRONIC ULCER OTH PRT LEFT FOOT 02/11/2018 MARY PERSAUD R PROMOTIONS ASSISTANT SALES MARKETING Ot D68.51 ACTIVATED PROTEIN C RESISTANCE 02/11/2018 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 I87.333 CHRONIC VENOUS HTN W ULCER AND INFLAM OF 02/11/2018 MARY PERSAUD APRN Ot L97.212 NON-PRESSURE CHRONIC ULCER OF RIGHT CALF 02/11/2018 MARY PERSAUD APRN Ot L97.222 NON-PRESSURE CHRONIC ULCER OF LEFT CALF 02/11/2018 MARY PERSAUD APRN Ot L97.312 NON-PRS CHRONIC ULCER OF RIGHT ANKLE W F 02/11/2018 MARY PERSAUD APRN Ot L97.522 NON-PRS CHRONIC ULCER OTH PRT LEFT FOOT 02/22/2018 ZAIRE WESTFALL MD Ot D68.51 ACTIVATED PROTEIN C RESISTANCE 02/22/2018 ZAIRE WESTFALL MD Ot I87.333 CHRONIC VENOUS HTN W ULCER AND INFLAM OF 02/22/2018 ZAIRE WESTFALL MD Ot L97.212 NON- PRESSURE CHRONIC ULCER OF RIGHT CALF 02/22/2018 ZAIRE WESTFALL MD Ot L97.222 NON- PRESSURE CHRONIC ULCER OF LEFT CALF 02/22/2018 ZAIRE WESTFALL MD Ot L97.312 NON- PRS CHRONIC ULCER OF RIGHT ANKLE W F 02/22/2018 ZAIRE WESTFALL MD Ot L97.522 NON- PRS CHRONIC ULCER OTH PRT LEFT FOOT 02/24/2018 ZAIRE WESTFALL MD Ot D68.51 ACTIVATED PROTEIN C RESISTANCE 02/24/2018 ZAIRE WESTFALL MD Ot I87.333 CHRONIC VENOUS HTN W ULCER AND INFLAM OF 02/24/2018 ZAIRE WESTFALL MD Ot L97.212 NON- PRESSURE CHRONIC ULCER OF RIGHT CALF 02/24/2018 ZAIRE WESTFALL MD Ot L97.222 NON- PRESSURE CHRONIC ULCER OF LEFT CALF 02/24/2018 ZAIRE WESTFALL MD Ot L97.312 NON- PRS CHRONIC ULCER OF RIGHT ANKLE W F 02/24/2018 ZAIRE WESTFALL MD Ot L97.522 NON- PRS CHRONIC ULCER OTH PRT LEFT FOOT 02/24/2018 PEDRO HINSON DO Ot Z01.8 18 ENCOUNTER FOR OTHER PREPROCEDURAL EXAMIN 02/24/2018 MARY PERSAUD APRN Ot D50.9 IRON DEFICIENCY ANEMIA, UNSPECIFIED 02/24/2018 MARY PERSAUD APRN Ot D68.51 ACTIVATED PROTEIN C RESISTANCE 02/24/2018 MARY PERSAUD APRN Ot I82.503 CHRONIC EMBLSM AND THOMBOS UNSP DEEP VEI 02/24/2018 MARY PERSAUD APRN Ot I87.333 CHRONIC VENOUS HTN W ULCER AND INFLAM OF 02/24/2018 MARY PERSAUD APRN Ot L97.212 NON-PRESSURE CHRONIC ULCER OF RIGHT CALF 02/24/2018 MARY PERSAUD APRN Ot L97.222 NON-PRESSURE CHRONIC ULCER OF LEFT CALF 02/24/2018 MARY PERSAUD APRN Ot L97.312 NON-PRS CHRONIC ULCER OF RIGHT ANKLE W F 02/24/2018 MARY PERSAUD APRN Ot L97.522 NON-PRS CHRONIC ULCER OTH PRT LEFT FOOT 03/01/2018 SRAVAN POWERS PEDRO B Ot D64.9 ANEMIA, UNSPECIFIED 03/01/2018 SRAVAN POWERS PEDRO B Ot D68.2 HEREDITARY DEFICIENCY OF OTHER CLOTTING 03/01/2018 SRAVAN POWERS PEDRO B Ot E66.0 1 MORBID (SEVERE) OBESITY DUE TO EXCESS CA 03/01/2018 SRAVAN POWERS PEDRO B Ot K25.9 GASTRIC ULCER, UNSP ACUTE OR CHRONIC, 03/01/2018 SRAVAN POWERS PEDRO B Ot K29.5 0 UNSPECIFIED CHRONIC GASTRITIS WITHOUT BL 03/01/2018 SRAVAN POWERS PEDRO B Ot K64.8 OTHER HEMORRHOIDS 03/01/2018 SRAVAN POWERS PEDRO B Ot Z68.4 1 BODY MASS INDEX (BMI) 40.0-44.9, ADULT 03/01/2018 SRAVAN POWERS PEDRO B Ot Z86.0 10 PERSONAL HISTORY OF COLONIC POLYPS 03/01/2018 SRAVAN POWERS PEDRO B Ot Z86.7 18 PERSONAL HISTORY OF OTHER VENOUS THROMBO 03/03/2018 ZAIRE WESTFALL MD Ot D50.9 IRON DEFICIENCY ANEMIA, UNSPECIFIED 03/03/2018 ZAIRE WESTFALL MD Ot D68.51 ACTIVATED PROTEIN C RESISTANCE 03/03/2018 ZAIRE WESTFALL MD Ot I82.503 CHRONIC EMBLSM AND THOMBOS UNSP DEEP VEI 03/03/2018 ZAIRE WESTFALL MD Ot I87.333 CHRONIC VENOUS HTN W ULCER AND INFLAM OF 03/03/2018 ZAIRE WESTFALL MD Ot L97.212 NON- PRESSURE CHRONIC ULCER OF RIGHT CALF 03/03/2018 ZAIRE WESTFALL MD Ot L97.222 NON- PRESSURE CHRONIC ULCER OF LEFT CALF 03/03/2018 ZAIRE WESTFALL MD, Ot L97.312 NON- PRS CHRONIC ULCER OF RIGHT ANKLE W F 03/03/2018 ZAIRE WESTFALL MD Ot L97.522 NON- PRS CHRONIC ULCER OTH PRT LEFT FOOT 03/04/2018 SRAVAN POWERS PEDRO B Ot D64.9 ANEMIA, UNSPECIFIED 03/04/2018 ROSE HINSON DOIC B Ot D68.2 HEREDITARY DEFICIENCY OF OTHER CLOTTING 03/04/2018 ROSE HINSON DOIC B Ot E66.0 1 MORBID (SEVERE) OBESITY DUE TO EXCESS CA 03/04/2018 SRAVAN POWERS PEDRO B Ot K25.9 GASTRIC ULCER, UNSP ACUTE OR CHRONIC, 03/04/2018 SRAVAN POWERS PEDRO B Ot K29.5 0 UNSPECIFIED CHRONIC GASTRITIS WITHOUT BL 03/04/2018 SRAVAN POWERS PEDRO B Ot K64.8 OTHER HEMORRHOIDS 03/04/2018 ROSE HINSON DOIC B Ot Z68.4 1 BODY MASS INDEX (BMI) 40.0-44.9, ADULT 03/04/2018 SRAVAN POWERS PEDRO B Ot Z86.0 10 PERSONAL HISTORY OF COLONIC POLYPS 03/04/2018 SRAVAN POWERS PEDRO B Ot Z86.7 18 PERSONAL HISTORY OF OTHER VENOUS THROMBO 03/05/2018 ZAIRE WESTFALL MD Ot D50.9 IRON DEFICIENCY ANEMIA, UNSPECIFIED 03/05/2018 ZAIRE WESTFALL MD Ot D68.51 ACTIVATED PROTEIN C RESISTANCE 03/05/2018 ZAIRE WESTFALL MD Ot I82.503 CHRONIC EMBLSM AND THOMBOS UNSP DEEP VEI 03/05/2018 ZAIRE WESTFALL MD Ot I87.333 CHRONIC VENOUS HTN W ULCER AND INFLAM OF 03/05/2018 ZAIRE WESTFALL MD Ot L97.212 NON- PRESSURE CHRONIC ULCER OF RIGHT CALF 03/05/2018 ZAIRE WESTFALL MD Ot L97.222 NON- PRESSURE CHRONIC ULCER OF LEFT CALF 03/05/2018 ZAIRE WESTFALL MD Ot L97.312 NON- PRS CHRONIC ULCER OF RIGHT ANKLE W F 03/05/2018 ZAIRE WESTFALL MD Ot L97.522 NON- PRS CHRONIC ULCER OTH PRT LEFT FOOT 03/08/2018 MARY PERSAUD APRN Ot D50.9 IRON DEFICIENCY ANEMIA, UNSPECIFIED 03/08/2018 MARY PERSAUD APRN Ot D68.51 ACTIVATED PROTEIN C RESISTANCE 03/08/2018 MARY PERSAUD APRN Ot I82.503 CHRONIC EMBLSM AND THOMBOS UNSP DEEP VEI 03/08/2018 MARY PERSAUD APRN Ot I87.333 CHRONIC VENOUS HTN W ULCER AND INFLAM OF 03/08/2018 MARY PERSAUD APRN Ot L97.212 NON-PRESSURE CHRONIC ULCER OF RIGHT CALF 03/08/2018 MARY PERSAUD APRN Ot L97.222 NON-PRESSURE CHRONIC ULCER OF LEFT CALF 03/08/2018 MARY PERSAUD APRN Ot L97.312 NON-PRS CHRONIC ULCER OF RIGHT ANKLE W F 03/08/2018 MARY PERSAUD APRN Ot L97.522 NON-PRS CHRONIC ULCER OTH PRT LEFT FOOT 03/11/2018 ROSE HINSON DOIC B Ot D64.9 ANEMIA, UNSPECIFIED 03/11/2018 ROSE HINSON DOIC B Ot D68.2 HEREDITARY DEFICIENCY OF OTHER CLOTTING 03/11/2018 ROSE HINSON DOIC B Ot E66.0 1 MORBID (SEVERE) OBESITY DUE TO EXCESS CA 03/11/2018 ROSE HINSON DOIC B Ot K25.9 GASTRIC ULCER, UNSP ACUTE OR CHRONIC, 03/11/2018 SRAVAN POWERS PEDRO B Ot K29.5 0 UNSPECIFIED CHRONIC GASTRITIS WITHOUT BL 03/11/2018 ROSE HINSON DOIC B Ot K64.8 OTHER HEMORRHOIDS 03/11/2018 ROSE HINSON DOIC B Ot Z68.4 1 BODY MASS INDEX (BMI) 40.0-44.9, ADULT 03/11/2018 ROSE HINSON DOIC B Ot Z86.0 10 PERSONAL HISTORY OF COLONIC POLYPS 03/11/2018 ROSE HINSON DOIC B Ot Z86.7 18 PERSONAL HISTORY OF OTHER VENOUS THROMBO 03/12/2018 MARY PERSAUD APRN Ot D50.9 IRON DEFICIENCY ANEMIA, UNSPECIFIED 03/12/2018 MARY PERSAUD APRN Ot D68.51 ACTIVATED PROTEIN C RESISTANCE 03/12/2018 MARY PERSAUD APRN Ot I82.503 CHRONIC EMBLSM AND THOMBOS UNSP DEEP VEI 03/12/2018 MARY PERSAUD APRN Ot I87.333 CHRONIC VENOUS HTN W ULCER AND INFLAM OF 03/12/2018 MARY PERSAUD APRN Ot L97.212 NON-PRESSURE CHRONIC ULCER OF RIGHT CALF 03/12/2018 CORI, MARY R [employer]OTIONS ASSISTANT SALES MARKETING Ot L97.222 NON-PRESSURE CHRONIC ULCER OF LEFT CALF 03/12/2018 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 L97.312 NON-PRS CHRONIC ULCER OF RIGHT ANKLE W F 03/12/2018 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 L97.522 NON-PRS CHRONIC ULCER OTH PRT LEFT FOOT 03/15/2018 MARY PERSAUD APRN Ot D50.9 IRON DEFICIENCY ANEMIA, UNSPECIFIED 03/15/2018 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 D68.51 ACTIVATED PROTEIN C RESISTANCE 03/15/2018 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 I82.503 CHRONIC EMBLSM AND THOMBOS UNSP DEEP VEI 03/15/2018 MARY PERSAUD APRN Ot I87.333 CHRONIC VENOUS HTN W ULCER AND INFLAM OF 03/15/2018 MARY PERSAUD APRN Ot L97.212 NON-PRESSURE CHRONIC ULCER OF RIGHT CALF 03/15/2018 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 L97.222 NON-PRESSURE CHRONIC ULCER OF LEFT CALF 03/15/2018 MARY PERSAUD APRN Ot L97.312 NON-PRS CHRONIC ULCER OF RIGHT ANKLE W F 03/15/2018 MARY PERSAUD APRN Ot L97.522 NON-PRS CHRONIC ULCER OTH PRT LEFT FOOT 03/17/2018 ZAIRE WESTFALL MD, Ot D50.9 IRON DEFICIENCY ANEMIA, UNSPECIFIED 03/17/2018 ZAIRE WESTFALL MD Ot D68.51 ACTIVATED PROTEIN C RESISTANCE 03/17/2018 ZAIRE WESTFALL MD Ot I82.503 CHRONIC EMBLSM AND THOMBOS UNSP DEEP VEI 03/17/2018 ZAIRE WESTFALL MD Ot I87.333 CHRONIC VENOUS HTN W ULCER AND INFLAM OF 03/17/2018 ZAIRE WESTFALL MD Ot L97.212 NON- PRESSURE CHRONIC ULCER OF RIGHT CALF 03/17/2018 ZAIRE WESFTALL MD Ot L97.222 NON- PRESSURE CHRONIC ULCER OF LEFT CALF 03/17/2018 ZAIRE WESTFALL MD Ot L97.312 NON- PRS CHRONIC ULCER OF RIGHT ANKLE W F 03/17/2018 ZAIRE WESTFALL MD, Ot L97.522 NON- PRS CHRONIC ULCER OTH PRT LEFT FOOT 03/17/2018 MARY PERSAUD APRN Ot D50.9 IRON DEFICIENCY ANEMIA, UNSPECIFIED 03/17/2018 CORI, MARY R [employer] ASSISTANT SALES MARKETING Ot D68.51 ACTIVATED PROTEIN C RESISTANCE 03/17/2018 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 I82.503 CHRONIC EMBLSM AND THOMBOS UNSP DEEP VEI 03/17/2018 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 I87.333 CHRONIC VENOUS HTN W ULCER AND INFLAM OF 03/17/2018 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 L97.212 NON-PRESSURE CHRONIC ULCER OF RIGHT CALF 03/17/2018 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 L97.222 NON-PRESSURE CHRONIC ULCER OF LEFT CALF 03/17/2018 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 L97.312 NON-PRS CHRONIC ULCER OF RIGHT ANKLE W F 03/17/2018 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 L97.522 NON-PRS CHRONIC ULCER OTH PRT LEFT FOOT 03/17/2018 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 D50.9 IRON DEFICIENCY ANEMIA, UNSPECIFIED 03/17/2018 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 D68.51 ACTIVATED PROTEIN C RESISTANCE 03/17/2018 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 I82.503 CHRONIC EMBLSM AND THOMBOS UNSP DEEP VEI 03/17/2018 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 I87.333 CHRONIC VENOUS HTN W ULCER AND INFLAM OF 03/17/2018 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 L97.212 NON-PRESSURE CHRONIC ULCER OF RIGHT CALF 03/17/2018 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 L97.222 NON-PRESSURE CHRONIC ULCER OF LEFT CALF 03/17/2018 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 L97.312 NON-PRS CHRONIC ULCER OF RIGHT ANKLE W F 03/17/2018 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 L97.522 NON-PRS CHRONIC ULCER OTH PRT LEFT FOOT 03/25/2018 SHANI HUTCHINSON MD Ot D50 .9 IRON DEFICIENCY ANEMIA, UNSPECIFIED 03/25/2018 SHANI HUTCHINSON MD Ot D68.51 ACTIVATED PROTEIN C RESISTANCE 03/25/2018 SHANI HUTCHINSON MD Ot I82.503 CHRONIC EMBLSM AND THOMBOS UNSP DEEP VEI 03/25/2018 SHANI HUTCHINSON MD Ot I87.333 CHRONIC VENOUS HTN W ULCER AND INFLAM OF 03/25/2018 SHANI HUTCHINSON MD Ot L97.212 NON-PRESSURE CHRONIC ULCER OF RIGHT CALF 03/25/2018 SHANI HUTCHINSON MD, Ot L97.222 NON-PRESSURE CHRONIC ULCER OF LEFT CALF 03/25/2018 SHANI HUTCHINSON MD Ot L97.312 NON-PRS CHRONIC ULCER OF RIGHT ANKLE W F 03/25/2018 SHANI HUTCHINSON MD, Ot L97.522 NON-PRS CHRONIC ULCER OTH PRT LEFT FOOT 03/25/2018 DEANA ALARCON MD Ot D68. 51 ACTIVATED PROTEIN C RESISTANCE 03/26/2018 SHANI HUTCHINSON MD Ot L97.222 NON-PRESSURE CHRONIC ULCER OF LEFT CALF 03/29/2018 SHANI HUTCHINSON MD, Ot D50 .9 IRON DEFICIENCY ANEMIA, UNSPECIFIED 03/29/2018 SHANI HUTCHINSON MD, Ot D68.51 ACTIVATED PROTEIN C RESISTANCE 03/29/2018 SHANI HUTCHINSON MD Ot I82.503 CHRONIC EMBLSM AND THOMBOS UNSP DEEP VEI 03/29/2018 SHANI HUTCHINSON MD Ot I87.333 CHRONIC VENOUS HTN W ULCER AND INFLAM OF 03/29/2018 SHANI HUTCHINSON MD Ot L97.212 NON-PRESSURE CHRONIC ULCER OF RIGHT CALF 03/29/2018 SHANI HUTCHINSON MD Ot L97.222 NON-PRESSURE CHRONIC ULCER OF LEFT CALF 03/29/2018 SHANI HUTCHINSON MD Ot L97.312 NON-PRS CHRONIC ULCER OF RIGHT ANKLE W F 03/29/2018 SHANI HUTCHINSON MD, Ot L97.522 NON-PRS CHRONIC ULCER OTH PRT LEFT FOOT 03/31/2018 SHANI HUTCHINSON MD, Ot D50 .9 IRON DEFICIENCY ANEMIA, UNSPECIFIED 03/31/2018 SHANI HUTCHINSON MD, Ot D68.51 ACTIVATED PROTEIN C RESISTANCE 03/31/2018 SHANI HUTCHINSON MD Ot E44 .0 MODERATE PROTEIN-CALORIE MALNUTRITION 03/31/2018 SHANI HUTCHINSON MD, Ot I82.503 CHRONIC EMBLSM AND THOMBOS UNSP DEEP VEI 03/31/2018 SHANI HUTCHINSON MD, Ot I87.333 CHRONIC VENOUS HTN W ULCER AND INFLAM OF 03/31/2018 SHANI HUTCHINSON MD Ot L97.212 NON-PRESSURE CHRONIC ULCER OF RIGHT CALF 03/31/2018 SHANI HUTCHINSON MD Ot L97.222 NON-PRESSURE CHRONIC ULCER OF LEFT CALF 03/31/2018 SHANI HUTCHINSON MD, Ot L97.312 NON-PRS CHRONIC ULCER OF RIGHT ANKLE W F 03/31/2018 SHANI HUTCHINSON MD Ot L97.522 NON-PRS CHRONIC ULCER OTH PRT LEFT FOOT 04/04/2018 SHANI HUTCHINSON MD, Ot D50 .9 IRON DEFICIENCY ANEMIA, UNSPECIFIED 04/04/2018 SHANI HUTCHINSON MD, Ot D68.51 ACTIVATED PROTEIN C RESISTANCE 04/04/2018 SHANI HUTCHINSON MD Ot E44 .0 MODERATE PROTEIN-CALORIE MALNUTRITION 04/04/2018 SHANI HUTCHINSON MD Ot I82.503 CHRONIC EMBLSM AND THOMBOS UNSP DEEP VEI 04/04/2018 SHANI HUTCHINSON MD Ot I87.333 CHRONIC VENOUS HTN W ULCER AND INFLAM OF 04/04/2018 SHANI HUTCHINSON MD, Ot L97.212 NON-PRESSURE CHRONIC ULCER OF RIGHT CALF 04/04/2018 SHANI HUTCHINSON MD Ot L97.222 NON-PRESSURE CHRONIC ULCER OF LEFT [place] 04/04/2018 SHANI HUTCHINSON MD, Ot L97.312 NON-PRS CHRONIC ULCER OF RIGHT ANKLE W F 04/04/2018 SHANI HUTCHINSON MD, Ot L97.522 NON-PRS CHRONIC ULCER OTH PRT LEFT FOOT 04/06/2018 SHANI HUTCHINSON MD, Ot D50 .9 IRON DEFICIENCY ANEMIA, UNSPECIFIED 04/06/2018 SHANI HUTCHINSON MD, Ot D68.51 ACTIVATED PROTEIN C RESISTANCE 04/06/2018 SHANI HUTCHINSON MD, Ot E44 .0 MODERATE PROTEIN-CALORIE MALNUTRITION 04/06/2018 SHANI HUTCHINSON MD, Ot I82.503 CHRONIC EMBLSM AND THOMBOS UNSP DEEP VEI 04/06/2018 SHANI HUTHCINSON MD, Ot I87.333 CHRONIC VENOUS HTN W ULCER AND INFLAM OF 04/06/2018 SHANI HUTCHINSON MD Ot L97.212 NON-PRESSURE CHRONIC ULCER OF RIGHT CALF 04/06/2018 SHANI HUTCHINSON MD Ot L97.222 NON-PRESSURE CHRONIC ULCER OF LEFT CALF 04/06/2018 SHANI HUTCHINSON MD Ot L97.312 NON-PRS CHRONIC ULCER OF RIGHT ANKLE W F 04/06/2018 SHANI HUTCHINSON MD Ot L97.522 NON-PRS CHRONIC ULCER OTH PRT LEFT FOOT 04/07/2018 MARY PERSAUD APRN Ot D50.9 IRON DEFICIENCY ANEMIA, UNSPECIFIED 04/07/2018 MARY PERSAUD APRN Ot D68.51 ACTIVATED PROTEIN C RESISTANCE 04/07/2018 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 I82.503 CHRONIC EMBLSM AND THOMBOS UNSP DEEP VEI 04/07/2018 MARY PERSAUD APRN Ot I87.333 CHRONIC VENOUS HTN W ULCER AND INFLAM OF 04/07/2018 MARY PERSAUD APRN Ot L97.212 NON-PRESSURE CHRONIC ULCER OF RIGHT CALF 04/07/2018 MARY PERSAUD APRN Ot L97.222 NON-PRESSURE CHRONIC ULCER OF LEFT CALF 04/07/2018 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 L97.312 NON-PRS CHRONIC ULCER OF RIGHT ANKLE W F 04/07/2018 MARY PERSAUD APRN Ot L97.522 NON-PRS CHRONIC ULCER OTH PRT LEFT FOOT 04/07/2018 SHANI HUTCHINSON MD, Ot D50 .9 IRON DEFICIENCY ANEMIA, UNSPECIFIED 04/07/2018 SHANI HUTCHINSON MD, Ot D68.51 ACTIVATED PROTEIN C RESISTANCE 04/07/2018 SHANI HUTCHINSON MD Ot I82.503 CHRONIC EMBLSM AND THOMBOS UNSP DEEP VEI 04/07/2018 SHANI HUTCHINSON MD Ot I87.333 CHRONIC VENOUS HTN W ULCER AND INFLAM OF 04/07/2018 SHANI HUTCHINSON MD Ot L97.212 NON-PRESSURE CHRONIC ULCER OF RIGHT CALF 04/07/2018 SHANI HUTCHINSON MD Ot L97.222 NON-PRESSURE CHRONIC ULCER OF LEFT CALF 04/07/2018 SHANI HUTCHINSON MD Ot L97.312 NON-PRS CHRONIC ULCER OF RIGHT ANKLE W F 04/07/2018 SHANI HUTCHINSON MD Ot L97.522 NON-PRS CHRONIC ULCER OTH PRT LEFT FOOT 04/12/2018 SHANI HUTCHINSON MD, Ot D50 .9 IRON DEFICIENCY ANEMIA, UNSPECIFIED 04/12/2018 SHANI HUTCHINSON MD Ot D68.51 ACTIVATED PROTEIN C RESISTANCE 04/12/2018 SHANI HUTCHINSON MD Ot E44 .0 MODERATE PROTEIN-CALORIE MALNUTRITION 04/12/2018 SHANI HUTCHINSON MD Ot I82.503 CHRONIC EMBLSM AND THOMBOS UNSP DEEP VEI 04/12/2018 SHANI HUTCHINSON MD Ot I87.333 CHRONIC VENOUS HTN W ULCER AND INFLAM OF 04/12/2018 SHANI HUTCHINSON MD Ot L97.212 NON-PRESSURE CHRONIC ULCER OF RIGHT CALF 04/12/2018 SHANI HUTCHINSON MD Ot L97.222 NON-PRESSURE CHRONIC ULCER OF LEFT CALF 04/12/2018 SHANI HUTCHINSON MD Ot L97.312 NON-PRS CHRONIC ULCER OF RIGHT ANKLE W F 04/12/2018 SHANI HUTCHINSON MD Ot L97.522 NON-PRS CHRONIC ULCER OTH PRT LEFT FOOT 04/13/2018 MARY PERSAUD APRN Ot D50.9 IRON DEFICIENCY ANEMIA, UNSPECIFIED 04/13/2018 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 D68.51 ACTIVATED PROTEIN C RESISTANCE 04/13/2018 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 I82.503 CHRONIC EMBLSM AND THOMBOS UNSP DEEP VEI 04/13/2018 MARY PERSAUD APRN Ot I87.333 CHRONIC VENOUS HTN W ULCER AND INFLAM OF 04/13/2018 MARY PERSAUD APRN Ot L97.212 NON-PRESSURE CHRONIC ULCER OF RIGHT CALF 04/13/2018 MARY PERSAUD APRN Ot L97.222 NON-PRESSURE CHRONIC ULCER OF LEFT CALF 04/13/2018 MARY PERSAUD APRN Ot L97.312 NON-PRS CHRONIC ULCER OF RIGHT ANKLE W F 04/13/2018 MARY PERSAUD APRN Ot L97.522 NON-PRS CHRONIC ULCER OTH PRT LEFT FOOT 04/13/2018 SHANI HUTCHINSON MD, Ot D50 .9 IRON DEFICIENCY ANEMIA, UNSPECIFIED 04/13/2018 SHANI HUTCHINSON MD Ot D68.51 ACTIVATED PROTEIN C RESISTANCE 04/13/2018 SHANI HUTCHINSON MD Ot I82.503 CHRONIC EMBLSM AND THOMBOS UNSP DEEP VEI 04/13/2018 SHANI HUTCHINSON MD Ot I87.333 CHRONIC VENOUS HTN W ULCER AND INFLAM OF 04/13/2018 SHANI HUTCHINSON MD Ot L97.212 NON-PRESSURE CHRONIC ULCER OF RIGHT CALF 04/13/2018 SHANI HUTCHINSON MD Ot L97.222 NON-PRESSURE CHRONIC ULCER OF LEFT CALF 04/13/2018 SHANI HUTCHINSON MD Ot L97.312 NON-PRS CHRONIC ULCER OF RIGHT ANKLE W F 04/13/2018 SHANI HUTCHINSON MD Ot L97.522 NON-PRS CHRONIC ULCER OTH PRT LEFT FOOT 04/13/2018 SHANI HUTCHINSON MD, Ot D50 .9 IRON DEFICIENCY ANEMIA, UNSPECIFIED 04/13/2018 SHANI HUTCHINSON MD, Ot D68.51 ACTIVATED PROTEIN C RESISTANCE 04/13/2018 SHANI HUTCHINSON MD, Ot I82.503 CHRONIC EMBLSM AND THOMBOS UNSP DEEP VEI 04/13/2018 SHNAI HUTCHINSON MD Ot I87.333 CHRONIC VENOUS HTN W ULCER AND INFLAM OF 04/13/2018 SHANI HUTCHINSON MD, Ot L97.212 NON-PRESSURE CHRONIC ULCER OF RIGHT CALF 04/13/2018 SHANI HUTCHINSON MD, Ot L97.222 NON-PRESSURE CHRONIC ULCER OF LEFT CALF 04/13/2018 SHANI HUTCHINSON MD, Ot L97.312 NON-PRS CHRONIC ULCER OF RIGHT ANKLE W F 04/13/2018 SHANI HUTCHINSON MD, Ot L97.522 NON-PRS CHRONIC ULCER OTH PRT LEFT FOOT 04/14/2018 SHANI HUTCHINSON MD, Ot D50 .9 IRON DEFICIENCY ANEMIA, UNSPECIFIED 04/14/2018 SHANI HUTCHINSON MD, Ot D68.51 ACTIVATED PROTEIN C RESISTANCE 04/14/2018 SHANI HUTCHINSON MD Ot E44 .0 MODERATE PROTEIN-CALORIE MALNUTRITION 04/14/2018 SHANI HUTCHINSON MD, Ot I82.503 CHRONIC EMBLSM AND THOMBOS UNSP DEEP VEI 04/14/2018 SHANI HUTCHINSON MD, Ot I87.333 CHRONIC VENOUS HTN W ULCER AND INFLAM OF 04/14/2018 SHANI HUTCHINSON MD Ot L97.212 NON-PRESSURE CHRONIC ULCER OF RIGHT CALF 04/14/2018 SHANI HUTCHINSON MD Ot L97.222 NON-PRESSURE CHRONIC ULCER OF LEFT CALF 04/14/2018 SHANI HUTCHINSON MD Ot L97.312 NON-PRS CHRONIC ULCER OF RIGHT ANKLE W F 04/14/2018 SHANI HUTCHINSON MD Ot L97.522 NON-PRS CHRONIC ULCER OTH PRT LEFT FOOT 04/18/2018 SHANI HUTCHINSON MD, Ot D50 .9 IRON DEFICIENCY ANEMIA, UNSPECIFIED 04/18/2018 SHANI HUTCHINSON MD, Ot D68.51 ACTIVATED PROTEIN C RESISTANCE 04/18/2018 SHANI HUTCHINSON MD Ot E44 .0 MODERATE PROTEIN-CALORIE MALNUTRITION 04/18/2018 SHANI HUTCHINSON MD, Ot I82.503 CHRONIC EMBLSM AND THOMBOS UNSP DEEP VEI 04/18/2018 SHANI HUTCHINSON MD Ot I87.333 CHRONIC VENOUS HTN W ULCER AND INFLAM OF 04/18/2018 SHANI HUTCHINSON MD Ot L97.212 NON-PRESSURE CHRONIC ULCER OF RIGHT CALF 04/18/2018 SHANI HUTCHINSON MD Ot L97.222 NON-PRESSURE CHRONIC ULCER OF LEFT CALF 04/18/2018 SHANI HUTCHINSON MD Ot L97.312 NON-PRS CHRONIC ULCER OF RIGHT ANKLE W F 04/18/2018 SHANI HUTCHINSON MD Ot L97.522 NON-PRS CHRONIC ULCER OTH PRT LEFT FOOT 04/20/2018 DEANA ALARCON MD Ot D68. 51 ACTIVATED PROTEIN C RESISTANCE 04/21/2018 SHANI HUTCHINSON MD Ot D50 .9 IRON DEFICIENCY ANEMIA, UNSPECIFIED 04/21/2018 SHANI HUTCHINSON MD, Ot D68.51 ACTIVATED PROTEIN C RESISTANCE 04/21/2018 SHANI HUTCHINSON MD Ot E44 .0 MODERATE PROTEIN-CALORIE MALNUTRITION 04/21/2018 SHANI HUTCHINSON MD Ot I82.503 CHRONIC EMBLSM AND THOMBOS UNSP DEEP VEI 04/21/2018 SHANI HUTCHINSON MD Ot I87.333 CHRONIC VENOUS HTN W ULCER AND INFLAM OF 04/21/2018 SHANI HUTCHINSON MD Ot L97.212 NON-PRESSURE CHRONIC ULCER OF RIGHT CALF 04/21/2018 SHANI HUTCHINSON MD Ot L97.222 NON-PRESSURE CHRONIC ULCER OF LEFT CALF 04/21/2018 SHANI HUTCHINSON MD Ot L97.312 NON-PRS CHRONIC ULCER OF RIGHT ANKLE W F 04/21/2018 SHANI HUTCHINSON MD Ot L97.522 NON-PRS CHRONIC ULCER OTH PRT LEFT FOOT 04/21/2018 SHANI HUTCHINSON MD Ot D50 .9 IRON DEFICIENCY ANEMIA, UNSPECIFIED 04/21/2018 SHANI HUTCHINSON MD Ot D68.51 ACTIVATED PROTEIN C RESISTANCE 04/21/2018 SHANI HUTCHINSON MD Ot E44 .0 MODERATE PROTEIN-CALORIE MALNUTRITION 04/21/2018 SHANI HUTCHINSON MD Ot I82.503 CHRONIC EMBLSM AND THOMBOS UNSP DEEP VEI 04/21/2018 SHANI HUTCHINSON MD Ot I87.333 CHRONIC VENOUS HTN W ULCER AND INFLAM OF 04/21/2018 SHANI HUTCHINSON MD Ot L97.212 NON-PRESSURE CHRONIC ULCER OF RIGHT CALF 04/21/2018 SHANI HUTCHINSON MD Ot L97.222 NON-PRESSURE CHRONIC ULCER OF LEFT CALF 04/21/2018 SHANI HUTCHINSON MD, Ot L97.312 NON-PRS CHRONIC ULCER OF RIGHT ANKLE W F 04/21/2018 SHANI HUTCHINSON MD Ot L97.522 NON-PRS CHRONIC ULCER OTH PRT LEFT FOOT 04/21/2018 DEANA ALARCON MD Ot D68. 51 ACTIVATED PROTEIN C RESISTANCE 04/28/2018 SHANI HUTCHINSON MD Ot D50 .9 IRON DEFICIENCY ANEMIA, UNSPECIFIED 04/28/2018 SHANI HUTCHINSON MD, Ot D68.51 ACTIVATED PROTEIN C RESISTANCE 04/28/2018 SHANI HUTCHINSON MD, Ot E44 .0 MODERATE PROTEIN-CALORIE MALNUTRITION 04/28/2018 SHANI HUTCHINSON MD Ot I82.503 CHRONIC EMBLSM AND THOMBOS UNSP DEEP VEI 04/28/2018 SHANI HUTCHINSON MD Ot I87.333 CHRONIC VENOUS HTN W ULCER AND INFLAM OF 04/28/2018 SHANI HUTCHINSON MD Ot L97.212 NON-PRESSURE CHRONIC ULCER OF RIGHT CALF 04/28/2018 SHANI HUTCHINSON MD Ot L97.222 NON-PRESSURE CHRONIC ULCER OF LEFT CALF 04/28/2018 SHANI HUTCHINSON MD Ot L97.312 NON-PRS CHRONIC ULCER OF RIGHT ANKLE W F 04/28/2018 SHANI HUTCHINSON MD Ot L97.522 NON-PRS CHRONIC ULCER OTH PRT LEFT FOOT 04/30/2018 SHANI HUTCHINSON MD, Ot D50 .9 IRON DEFICIENCY ANEMIA, UNSPECIFIED 04/30/2018 SHANI HUTCHINSON MD, Ot D68.51 ACTIVATED PROTEIN C RESISTANCE 04/30/2018 SHANI HUTCHINSON MD Ot E44 .0 MODERATE PROTEIN-CALORIE MALNUTRITION 04/30/2018 SHANI HUTCHINSON MD Ot I82.503 CHRONIC EMBLSM AND THOMBOS UNSP DEEP VEI 04/30/2018 SHANI HUTCHINSON MD Ot I87.333 CHRONIC VENOUS HTN W ULCER AND INFLAM OF 04/30/2018 SHANI HUTCHINSON MD Ot L97.212 NON-PRESSURE CHRONIC ULCER OF RIGHT CALF 04/30/2018 SHANI HUTCHINSON MD Ot L97.222 NON-PRESSURE CHRONIC ULCER OF LEFT CALF 04/30/2018 SHANI HUTCHINSON MD Ot L97.312 NON-PRS CHRONIC ULCER OF RIGHT ANKLE W F 04/30/2018 SHANI HUTCHINSON MD, Ot L97.522 NON-PRS CHRONIC ULCER OTH PRT LEFT FOOT 04/30/2018 SHANI HUTCHINSON MD, Ot E44 .0 MODERATE PROTEIN-CALORIE MALNUTRITION 05/07/2018 SHANI HUTCHINSON MD, Ot D50 .9 IRON DEFICIENCY ANEMIA, UNSPECIFIED 05/07/2018 SHANI HUTCHINSON MD, Ot D68.51 ACTIVATED PROTEIN C RESISTANCE 05/07/2018 SHANI HUTCHINSON MD, Ot E44 .0 MODERATE PROTEIN-CALORIE MALNUTRITION 05/07/2018 SHANI HUTCHINSON MD, Ot I87.333 CHRONIC VENOUS HTN W ULCER AND INFLAM OF 05/07/2018 SHANI HUTCHINSON MD, Ot L97.212 NON-PRESSURE CHRONIC ULCER OF RIGHT CALF 05/07/2018 SHANI HUTCHINSON MD, Ot L97.222 NON-PRESSURE CHRONIC ULCER OF LEFT CALF 05/07/2018 SHANI HUTCHINSON MD, Ot L97.312 NON-PRS CHRONIC ULCER OF RIGHT ANKLE W F 05/07/2018 SHANI HUTCHINSON MD, Ot L97.522 NON-PRS CHRONIC ULCER OTH PRT LEFT FOOT 05/07/2018 SHANI HUTCHINSON MD, Ot Z86.718 PERSONAL HISTORY OF OTHER VENOUS THROMBO 05/09/2018 DEANA ALARCON MD, Ot D50. 0 IRON DEFICIENCY ANEMIA SECONDARY TO BLOO 05/09/2018 DEANA ALARCON MD, Ot D68. 51 ACTIVATED PROTEIN C RESISTANCE 05/09/2018 DEANA ALARCON MD, Ot E66. 01 MORBID (SEVERE) OBESITY DUE TO EXCESS CA 05/09/2018 DEANA ALARCON MD, Ot I82.503 CHRONIC EMBLSM AND THOMBOS UNSP DEEP VEI 05/09/2018 DEANA ALARCON MD, Ot K29. 70 GASTRITIS, UNSPECIFIED, WITHOUT BLEEDING 05/09/2018 DEANA ALARCON MD, Ot Z68. 39 BODY MASS INDEX (BMI) 39.0-39.9, ADULT 05/09/2018 DEANA ALARCON MD, Ot Z79. 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222 NON-PRESSURE CHRONIC ULCER OF LEFT CALF 05/10/2018 SHANI HUTCHINSON MD, Ot L97.312 NON-PRS CHRONIC ULCER OF RIGHT ANKLE W F 05/10/2018 SHANI HUTCHINSON MD, Ot L97.522 NON-PRS CHRONIC ULCER OTH PRT LEFT FOOT 05/10/2018 DEANA ALARCON MD, Ot D50. 0 IRON DEFICIENCY ANEMIA SECONDARY TO BLOO 05/10/2018 DEANA ALARCON MD, Ot D68. 51 ACTIVATED PROTEIN C RESISTANCE 05/10/2018 DEANA ALARCON MD, Ot E66. 01 MORBID (SEVERE) OBESITY DUE TO EXCESS CA 05/10/2018 DEANA ALARCON MD, Ot I82.503 CHRONIC EMBLSM AND THOMBOS UNSP DEEP VEI 05/10/2018 DEANA ALARCON MD Ot K29. 70 GASTRITIS, UNSPECIFIED, WITHOUT BLEEDING 05/10/2018 DEANA ALARCON MD, Ot Z68. 39 BODY MASS INDEX (BMI) 39.0-39.9, ADULT 05/10/2018 DEANA ALARCON MD, Ot Z79. 01 PHYSICIAN CHIEF OF PATHOLOGY (CURRENT) USE OF ANTICOAGULANT 05/10/2018 DEANA ALARCON MD, Ot Z79. 82 SHELTER (CURRENT) USE OF ASPIRIN 05/10/2018 DEANA ALARCON MD, Ot Z79.899 OTHER SHELTER (CURRENT) DRUG THERAPY 05/11/2018 SHANI HUTCHINSON MD, Ot D50 .9 IRON DEFICIENCY ANEMIA, UNSPECIFIED 05/11/2018 SHANI HUTCHINSON MD, Ot D68.51 ACTIVATED PROTEIN C RESISTANCE 05/11/2018 SHANI HUTCHINSON MD, Ot E44 .0 MODERATE PROTEIN-CALORIE MALNUTRITION 05/11/2018 SHANI HUTCHINSON MD, Ot I87.333 CHRONIC VENOUS HTN W ULCER AND INFLAM OF 05/11/2018 SHANI HUTCHINSON MD, Ot L97.212 NON-PRESSURE CHRONIC ULCER OF RIGHT CALF 05/11/2018 SHANI HUTCHINSON MD, Ot L97.222 NON-PRESSURE CHRONIC ULCER OF LEFT CALF 05/11/2018 SHANI HUTCHINSON MD, Ot L97.312 NON-PRS CHRONIC ULCER OF RIGHT ANKLE W F 05/11/2018 SHANI HUTCHINSON MD, Ot L97.522 NON-PRS CHRONIC ULCER OTH PRT LEFT FOOT 05/11/2018 SHNAI HUTCHINSON MD, Ot Z86.718 PERSONAL HISTORY OF OTHER VENOUS THROMBO 05/18/2018 DORIAN LLANOS, DEANA Ot D68. 51 ACTIVATED PROTEIN C RESISTANCE 05/21/2018 SHANI HUTCHINSON MD, Ot D50 .9 IRON DEFICIENCY ANEMIA, UNSPECIFIED 05/21/2018 SHANI HUTCHINSON MD, Ot D68.51 ACTIVATED PROTEIN C RESISTANCE 05/21/2018 SHANI HUTCHINSON MD, Ot E44 .0 MODERATE PROTEIN-CALORIE MALNUTRITION 05/21/2018 SHANI HUTCHINSON MD, Ot I87.333 CHRONIC VENOUS HTN W ULCER AND INFLAM OF 05/21/2018 SHANI HUTCHINSON MD, Ot L97.212 NON-PRESSURE CHRONIC ULCER OF RIGHT CALF 05/21/2018 SHANI HUTCHINSON MD, Ot L97.222 NON-PRESSURE CHRONIC ULCER OF LEFT CALF 05/21/2018 SHANI HUTCHINSON MD, Ot L97.312 NON-PRS CHRONIC ULCER OF RIGHT ANKLE W F 05/21/2018 SHANI HUTCHINSON MD, Ot L97.522 NON-PRS CHRONIC ULCER OTH PRT LEFT FOOT 05/21/2018 SHANI HUTCHINSON MD, Ot Z86.718 PERSONAL HISTORY OF OTHER VENOUS THROMBO 05/25/2018 SHANI HUTCHINSON MD, Ot D50 .9 IRON DEFICIENCY ANEMIA, UNSPECIFIED 05/25/2018 SHANI HUTCHINSON MD, Ot D68.51 ACTIVATED PROTEIN C RESISTANCE 05/25/2018 SHANI HUTCHINSON MD Ot E44 .0 MODERATE PROTEIN-CALORIE MALNUTRITION 05/25/2018 SHANI HUTCHINSON MD, Ot I82.503 CHRONIC EMBLSM AND THOMBOS UNSP DEEP VEI 05/25/2018 SHANI HUTCHINSON MD, Ot I87.333 CHRONIC VENOUS HTN W ULCER AND INFLAM OF 05/25/2018 SHANI HUTCHINSON MD Ot L97.212 NON-PRESSURE CHRONIC ULCER OF RIGHT CALF 05/25/2018 SHANI HUTCHINSON MD Ot L97.222 NON-PRESSURE CHRONIC ULCER OF LEFT CALF 05/25/2018 SHANI HUTCHINSON MD Ot L97.312 NON-PRS CHRONIC ULCER OF RIGHT ANKLE W F 05/25/2018 SHANI HUTCHINSON MD, Ot L97.522 NON-PRS CHRONIC ULCER OTH PRT LEFT FOOT 05/26/2018 SHANI HUTCHINSON MD, Ot D50 .9 IRON DEFICIENCY ANEMIA, UNSPECIFIED 05/26/2018 SHANI HUTCHINSON MD, Ot D68.51 ACTIVATED PROTEIN C RESISTANCE 05/26/2018 SHANI HUTCHINSON MD, Ot E44 .0 MODERATE PROTEIN-CALORIE MALNUTRITION 05/26/2018 SHANI HUTCHINSON MD, Ot I87.333 CHRONIC VENOUS HTN W ULCER AND INFLAM OF 05/26/2018 SHANI HUTCHINSON MD, Ot L97.212 NON-PRESSURE CHRONIC ULCER OF RIGHT CALF 05/26/2018 SHANI HUTCHINSON MD Ot L97.222 NON-PRESSURE CHRONIC ULCER OF LEFT CALF 05/26/2018 SHANI HUTCHINSON MD Ot L97.312 NON-PRS CHRONIC ULCER OF RIGHT ANKLE W F 05/26/2018 SHANI HUTCHINSON MD, Ot L97.522 NON-PRS CHRONIC ULCER OTH PRT LEFT FOOT 05/26/2018 SHANI HUTCHINSON MD Ot Z86.718 PERSONAL HISTORY OF OTHER VENOUS THROMBO 05/27/2018 SHANI HUTCHINSON MD, Ot D50 .9 IRON DEFICIENCY ANEMIA, UNSPECIFIED 05/27/2018 SHANI HUTCHINSON MD, Ot D68.51 ACTIVATED PROTEIN C RESISTANCE 05/27/2018 SHANI HUTCHINSON MD Ot E44 .0 MODERATE PROTEIN-CALORIE MALNUTRITION 05/27/2018 SHANI HUTCHINSON MD Ot I87.333 CHRONIC VENOUS HTN W ULCER AND INFLAM OF 05/27/2018 SHANI HUTCHINSON MD Ot L97.212 NON-PRESSURE CHRONIC ULCER OF RIGHT CALF 05/27/2018 SHANI HUTCHINSON MD Ot L97.222 NON-PRESSURE CHRONIC ULCER OF LEFT CALF 05/27/2018 SHANI HUTCHINSON MD Ot L97.312 NON-PRS CHRONIC ULCER OF RIGHT ANKLE W F 05/27/2018 SHANI HUTCHINSON MD, Ot L97.522 NON-PRS CHRONIC ULCER OTH PRT LEFT FOOT 05/27/2018 SHANI HUTCHINSON MD, Ot Z86.718 PERSONAL HISTORY OF OTHER VENOUS THROMBO 06/01/2018 SHANI HUTCHINSON MD, Ot D68.51 ACTIVATED PROTEIN C RESISTANCE 06/01/2018 SHANI HUTCHINSON MD, Ot E44 .0 MODERATE PROTEIN-CALORIE MALNUTRITION 06/01/2018 SHANI HUTCHINSON MD, Ot I87.333 CHRONIC VENOUS HTN W ULCER AND INFLAM OF 06/01/2018 SHANI HUTCHINSON MD, Ot L97.212 NON-PRESSURE CHRONIC ULCER OF RIGHT CALF 06/01/2018 SHANI HUTCHINSON MD, Ot L97.222 NON-PRESSURE CHRONIC ULCER OF LEFT CALF 06/01/2018 SHANI HUTCHINSON MD, Ot L97.312 NON-PRS CHRONIC ULCER OF RIGHT ANKLE W F 06/01/2018 SHANI HUTCHINSON MD, Ot L97.522 NON-PRS CHRONIC ULCER OTH PRT LEFT FOOT 06/01/2018 SHANI HUTCHINSON MD, Ot Z86.718 PERSONAL HISTORY OF OTHER VENOUS THROMBO 06/09/2018 SHANI HUTCHINSON MD, Ot L97.222 NON-PRESSURE CHRONIC ULCER OF LEFT CALF 06/10/2018 SHANI HUTCHINSON MD, Ot D68.51 ACTIVATED PROTEIN C RESISTANCE 06/10/2018 SHANI HUTCHINSON MD, Ot E44 .0 MODERATE PROTEIN-CALORIE MALNUTRITION 06/10/2018 SHANI HUTCHINSON MD, Ot I87.333 CHRONIC VENOUS HTN W ULCER AND INFLAM OF 06/10/2018 SHANI HUTCHINSON MD, Ot L97.212 NON-PRESSURE CHRONIC ULCER OF RIGHT CALF 06/10/2018 SHANI HUTCHINSON MD Ot L97.222 NON-PRESSURE CHRONIC ULCER OF LEFT CALF 06/10/2018 SHANI HUTCHINSON MD, Ot L97.312 NON-PRS CHRONIC ULCER OF RIGHT ANKLE W F 06/10/2018 SHANI HUTCHINSON MD, Ot L97.522 NON-PRS CHRONIC ULCER OTH PRT LEFT FOOT 06/10/2018 SHANI HUTCHINSON MD, Ot Z86.718 PERSONAL HISTORY OF OTHER VENOUS THROMBO 06/14/2018 SHANI HUTCHINSON MD Ot D50 .9 IRON DEFICIENCY ANEMIA, UNSPECIFIED 06/14/2018 SHANI HUTCHINSON MD, Ot D68.51 ACTIVATED PROTEIN C RESISTANCE 06/14/2018 SHANI HUTCHINSON MD, Ot E44 .0 MODERATE PROTEIN-CALORIE MALNUTRITION 06/14/2018 SHANI HUTCHINSON MD, Ot I82.503 CHRONIC EMBLSM AND THOMBOS UNSP DEEP VEI 06/14/2018 SHANI HUTCHINSON MD, Ot I87.333 CHRONIC VENOUS HTN W ULCER AND INFLAM OF 06/14/2018 SHANI HUTCHINSON MD, Ot L97.212 NON-PRESSURE CHRONIC ULCER OF RIGHT CALF 06/14/2018 SHANI HUTCHINSON MD, Ot L97.222 NON-PRESSURE CHRONIC ULCER OF LEFT CALF 06/14/2018 SHANI HUTCHINSON MD, Ot L97.312 NON-PRS CHRONIC ULCER OF RIGHT ANKLE W F 06/14/2018 SHANI HUTCHINSON MD, Ot L97.522 NON-PRS CHRONIC ULCER OTH PRT LEFT FOOT 06/14/2018 SHANI HUTCHINSON MD, Ot D50 .9 IRON DEFICIENCY ANEMIA, UNSPECIFIED 06/14/2018 SHANI HUTCHINSON MD, Ot D68.51 ACTIVATED PROTEIN C RESISTANCE 06/14/2018 SHANI HUTCHINSON MD, Ot E44 .0 MODERATE PROTEIN-CALORIE MALNUTRITION 06/14/2018 SHANI HUTCHINSON MD, Ot I87.333 CHRONIC VENOUS HTN W ULCER AND INFLAM OF 06/14/2018 SHANI HUTCHINSON MD, Ot L97.212 NON-PRESSURE CHRONIC ULCER OF RIGHT CALF 06/14/2018 SHANI HUTCHINSON MD, Ot L97.222 NON-PRESSURE CHRONIC ULCER OF LEFT CALF 06/14/2018 SHANI HUTCHINSON MD, Ot L97.312 NON-PRS CHRONIC ULCER OF RIGHT ANKLE W F 06/14/2018 SHANI HUTCHINSON MD, Ot L97.522 NON-PRS CHRONIC ULCER OTH PRT LEFT FOOT 06/14/2018 SHANI HUTCHINSON MD, Ot Z86.718 PERSONAL HISTORY OF OTHER VENOUS THROMBO 06/17/2018 SHANI HUTCHINSON MD, Ot D68.51 ACTIVATED PROTEIN C RESISTANCE 06/17/2018 SHANI HUTCHINSON MD, Ot E44 .0 MODERATE PROTEIN-CALORIE MALNUTRITION 06/17/2018 SHANI HUTCHINSON MD, Ot I87.333 CHRONIC VENOUS HTN W ULCER AND INFLAM OF 06/17/2018 SHANI HUTCHINSON MD, Ot L97.212 NON-PRESSURE CHRONIC ULCER OF RIGHT CALF 06/17/2018 SHANI HUTCHINSON MD, Ot L97.222 NON-PRESSURE CHRONIC ULCER OF LEFT CALF 06/17/2018 SHANI HUTCHINSON MD, Ot L97.312 NON-PRS CHRONIC ULCER OF RIGHT ANKLE W F 06/17/2018 SHANI HUTCHINSON MD Ot L97.522 NON-PRS CHRONIC ULCER OTH PRT LEFT FOOT 06/17/2018 SHANI HUTCHINSON MD, Ot Z86.718 PERSONAL HISTORY OF OTHER VENOUS THROMBO 06/18/2018 SHANI HUTCHINSON MD, Ot D68.51 ACTIVATED PROTEIN C RESISTANCE 06/18/2018 SHANI HUTCHINSON MD, Ot E44 .0 MODERATE PROTEIN-CALORIE MALNUTRITION 06/18/2018 SHANI HUTCHINSON MD Ot I87.333 CHRONIC VENOUS HTN W ULCER AND INFLAM OF 06/18/2018 SHANI HUTCHINSON MD Ot L97.212 NON-PRESSURE CHRONIC ULCER OF RIGHT CALF 06/18/2018 SHANI HUTCHINSON MD Ot L97.222 NON-PRESSURE CHRONIC ULCER OF LEFT CALF 06/18/2018 SHANI HUTCHINSON MD Ot L97.312 NON-PRS CHRONIC ULCER OF RIGHT ANKLE W F 06/18/2018 SHANI HUTCHINSON MD, Ot L97.522 NON-PRS CHRONIC ULCER OTH PRT LEFT FOOT 06/18/2018 SHANI HUTCHINSON MD, Ot Z86.718 PERSONAL HISTORY OF OTHER VENOUS THROMBO 06/18/2018 MARY PERSAUD APRN Ot D68.51 ACTIVATED PROTEIN C RESISTANCE 06/18/2018 MARY PERSAUD APRN Ot E44.0 MODERATE PROTEIN-CALORIE MALNUTRITION 06/18/2018 MARY PERSAUD APRN Ot I87.333 CHRONIC VENOUS HTN W ULCER AND INFLAM OF 06/18/2018 MARY PERSAUD APRN Ot L97.212 NON-PRESSURE CHRONIC ULCER OF RIGHT CALF 06/18/2018 MARY PERSAUD APRN Ot L97.222 NON-PRESSURE CHRONIC ULCER OF LEFT CALF 06/18/2018 MARY PERSAUD APRN Ot L97.312 NON-PRS CHRONIC ULCER OF RIGHT ANKLE W F 06/18/2018 MARY PERSAUD APRN Ot L97.522 NON-PRS CHRONIC ULCER OTH PRT LEFT FOOT 06/18/2018 MARY PERSAUD APRN Ot Z86.718 PERSONAL HISTORY OF OTHER VENOUS THROMBO 06/22/2018 SHANI HUTCIHNSON MD Ot D68.51 ACTIVATED PROTEIN C RESISTANCE 06/22/2018 SHANI HUTCHINSON MD, Ot E44 .0 MODERATE PROTEIN-CALORIE MALNUTRITION 06/22/2018 SHANI HUTCHINSON MD, Ot I87.333 CHRONIC VENOUS HTN W ULCER AND INFLAM OF 06/22/2018 SHANI HUTCHINSON MD, Ot L97.212 NON-PRESSURE CHRONIC ULCER OF RIGHT CALF 06/22/2018 SHANI HUTCHINSON MD, Ot L97.222 NON-PRESSURE CHRONIC ULCER OF LEFT CALF 06/22/2018 SHANI HUTCHINSON MD, Ot L97.312 NON-PRS CHRONIC ULCER OF RIGHT ANKLE W F 06/22/2018 SHANI HUTCHINSON MD, Ot L97.522 NON-PRS CHRONIC ULCER OTH PRT LEFT FOOT 06/22/2018 SHANI HUTCHINSON MD, Ot Z86.718 PERSONAL HISTORY OF OTHER VENOUS THROMBO 06/28/2018 DEANA ALARCON MD, Ot D50. 0 IRON DEFICIENCY ANEMIA SECONDARY TO BLOO 06/28/2018 DEANA ALARCON MD, Ot D68. 51 ACTIVATED PROTEIN C RESISTANCE 06/28/2018 DEANA ALARCON MD, Ot E66. 01 MORBID (SEVERE) OBESITY DUE TO EXCESS CA 06/28/2018 DEANA ALARCON MD, Ot I82.503 CHRONIC EMBLSM AND THOMBOS UNSP DEEP VEI 06/28/2018 DEANA ALARCON MD, Ot K29. 70 GASTRITIS, UNSPECIFIED, WITHOUT BLEEDING 06/28/2018 DEANA ALARCON MD, Ot Z68. 39 BODY MASS INDEX (BMI) 39.0-39.9, ADULT 06/28/2018 DEANA ALARCON MD, Ot Z79. 01 PHYSICIAN CHIEF OF PATHOLOGY (CURRENT) USE OF ANTICOAGULANT 06/28/2018 DEANA ALARCON MD, Ot Z79. 82 SHELTER (CURRENT) USE OF ASPIRIN 06/28/2018 DEANA ALARCON MD, Ot Z79.899 OTHER PHYSICIAN CHIEF OF PATHOLOGY (CURRENT) DRUG THERAPY 06/28/2018 SHANI HUTCHINSON MD, Ot D68.51 ACTIVATED PROTEIN C RESISTANCE 06/28/2018 SHANI HUTCHINSON MD, Ot E44 .0 MODERATE PROTEIN-CALORIE MALNUTRITION 06/28/2018 SHANI HUTCHINSON MD, Ot I87.333 CHRONIC VENOUS HTN W ULCER AND INFLAM OF 06/28/2018 SHANI HUTCHINSON MD, Ot L97.212 NON-PRESSURE CHRONIC ULCER OF RIGHT CALF 06/28/2018 SHANI HUTCHINSON MD, Ot L97.222 NON-PRESSURE CHRONIC ULCER OF LEFT CALF 06/28/2018 SHANI HUTCHINSON MD Ot L97.312 NON-PRS CHRONIC ULCER OF RIGHT ANKLE W F 06/28/2018 SHANI HUTCHINSON MD, Ot L97.522 NON-PRS CHRONIC ULCER OTH PRT LEFT FOOT 06/28/2018 SHANI HUTCHINSON MD Ot Z86.718 PERSONAL HISTORY OF OTHER VENOUS THROMBO 06/28/2018 SHANI HUTCHINSON MD Ot D68.51 ACTIVATED PROTEIN C RESISTANCE 06/28/2018 SHANI HUTCHINSON MD, Ot E44 .0 MODERATE PROTEIN-CALORIE MALNUTRITION 06/28/2018 SHANI HUTCHINSON MD Ot I87.333 CHRONIC VENOUS HTN W ULCER AND INFLAM OF 06/28/2018 SHANI HUTCHINSON MD Ot L97.212 NON-PRESSURE CHRONIC ULCER OF RIGHT CALF 06/28/2018 SHANI HUTCHINSON MD Ot L97.222 NON-PRESSURE CHRONIC ULCER OF LEFT CALF 06/28/2018 SHANI HUTCHINSON MD Ot L97.312 NON-PRS CHRONIC ULCER OF RIGHT ANKLE W F 06/28/2018 SHANI HUTCHINSON MD, Ot L97.522 NON-PRS CHRONIC ULCER OTH PRT LEFT FOOT 06/28/2018 SHANI HUTCHINSON MD, Ot Z86.718 PERSONAL HISTORY OF OTHER VENOUS THROMBO 06/28/2018 MARY PERSAUD APRN Ot D68.51 ACTIVATED PROTEIN C RESISTANCE 06/28/2018 MARY PERSAUD APRN Ot E44.0 MODERATE PROTEIN-CALORIE MALNUTRITION 06/28/2018 MARY PERSAUD APRN Ot I87.333 CHRONIC VENOUS HTN W ULCER AND INFLAM OF 06/28/2018 MARY PERSAUD APRN Ot L97.212 NON-PRESSURE CHRONIC ULCER OF RIGHT CALF 06/28/2018 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 L97.222 NON-PRESSURE CHRONIC ULCER OF LEFT CALF 06/28/2018 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 L97.312 NON-PRS CHRONIC ULCER OF RIGHT ANKLE W F 06/28/2018 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 L97.522 NON-PRS CHRONIC ULCER OTH PRT LEFT FOOT 06/28/2018 MARY PERSAUD APRN Ot Z86.718 PERSONAL HISTORY OF OTHER VENOUS THROMBO 06/29/2018 SHANI HUTCHINSON MD Ot D68.51 ACTIVATED PROTEIN C RESISTANCE 06/29/2018 EVANGELINA MD, SHANI G Ot E44 .0 MODERATE PROTEIN-CALORIE MALNUTRITION 06/29/2018 SHANI HUTCHINSON MD Ot I87.333 CHRONIC VENOUS HTN W ULCER AND INFLAM OF 06/29/2018 SHANI HUTCHINSON MD, Ot L97.212 NON-PRESSURE CHRONIC ULCER OF RIGHT CALF 06/29/2018 SHANI HUTCHINSON MD, Ot L97.222 NON-PRESSURE CHRONIC ULCER OF LEFT CALF 06/29/2018 SHANI HUTCHINSON MD, Ot L97.312 NON-PRS CHRONIC ULCER OF RIGHT ANKLE W F 06/29/2018 SHANI HUTCHINSON MD, Ot L97.522 NON-PRS CHRONIC ULCER OTH PRT LEFT FOOT 06/29/2018 SHANI HUTCHINSON MD, Ot Z86.718 PERSONAL HISTORY OF OTHER VENOUS THROMBO 06/30/2018 SHANI HUTCHINSON MD, Ot D68.51 ACTIVATED PROTEIN C RESISTANCE 06/30/2018 SHANI HUTCHINSON MD, Ot E44 .0 MODERATE PROTEIN-CALORIE MALNUTRITION 06/30/2018 SHANI HUTCHINSON MD, Ot I87.333 CHRONIC VENOUS HTN W ULCER AND INFLAM OF 06/30/2018 SHANI HUTCHINSON MD, Ot L97.212 NON-PRESSURE CHRONIC ULCER OF RIGHT CALF 06/30/2018 SHANI HUTCHINSON MD Ot L97.222 NON-PRESSURE CHRONIC ULCER OF LEFT CALF 06/30/2018 SHANI HUTCHINSON MD, Ot L97.312 NON-PRS CHRONIC ULCER OF RIGHT ANKLE W F 06/30/2018 SHANI HUTCHINSON MD, Ot L97.522 NON-PRS CHRONIC ULCER OTH PRT LEFT FOOT 06/30/2018 SHANI HUTCHINSON MD, Ot Z86.718 PERSONAL HISTORY OF OTHER VENOUS THROMBO 06/30/2018 MARY PERSAUD APRN Ot D68.51 ACTIVATED PROTEIN C RESISTANCE 06/30/2018 MARY PERSAUD APRN Ot E44.0 MODERATE PROTEIN-CALORIE MALNUTRITION 06/30/2018 MARY PERSAUD APRN Ot I87.333 CHRONIC VENOUS HTN W ULCER AND INFLAM OF 06/30/2018 MARY PERSAUD APRN Ot L97.212 NON-PRESSURE CHRONIC ULCER OF RIGHT CALF 06/30/2018 MARY PERSAUD APRN Ot L97.222 NON-PRESSURE CHRONIC ULCER OF LEFT CALF 06/30/2018 MARY PERSAUD APRN Ot L97.312 NON-PRS CHRONIC ULCER OF RIGHT ANKLE W F 06/30/2018 MARY PERSAUD APRN Ot L97.522 NON-PRS CHRONIC ULCER OTH PRT LEFT FOOT 06/30/2018 MARY PERSAUD APRN Ot Z86.718 PERSONAL HISTORY OF OTHER VENOUS THROMBO 07/04/2018 SHANI HUTCHINSON MD, Ot D68.51 ACTIVATED PROTEIN C RESISTANCE 07/04/2018 SHANI HUTCHINSON MD, Ot E44 .0 MODERATE PROTEIN-CALORIE MALNUTRITION 07/04/2018 SHANI HUTCHINSON MD, Ot I87.333 CHRONIC VENOUS HTN W ULCER AND INFLAM OF 07/04/2018 SHAIN HUTCHINSON MD, Ot L97.212 NON-PRESSURE CHRONIC ULCER OF RIGHT CALF 07/04/2018 SHANI HUTCHINSON MD, Ot L97.222 NON-PRESSURE CHRONIC ULCER OF LEFT CALF 07/04/2018 SHANI HUTCHINSON MD, Ot L97.312 NON-PRS CHRONIC ULCER OF RIGHT ANKLE W F 07/04/2018 SHANI HUTCHINSON MD, Ot L97.522 NON-PRS CHRONIC ULCER OTH PRT LEFT FOOT 07/04/2018 SHANI HUTCHINSON MD, Ot Z86.718 PERSONAL HISTORY OF OTHER VENOUS THROMBO 07/06/2018 SHANI HUTCHINSON MD, Ot D68.51 ACTIVATED PROTEIN C RESISTANCE 07/06/2018 SHANI HUTCHINSON MD, Ot E44 .0 MODERATE PROTEIN-CALORIE MALNUTRITION 07/06/2018 SHANI HUTCHINSON MD, Ot I82.503 CHRONIC EMBLSM AND THOMBOS UNSP DEEP VEI 07/06/2018 SHANI HUTCHINSON MD, Ot I87.333 CHRONIC VENOUS HTN W ULCER AND INFLAM OF 07/06/2018 SHANI HUTCHINSON MD, Ot L97.212 NON-PRESSURE CHRONIC ULCER OF RIGHT CALF 07/06/2018 SHANI HUTCHINSON MD, Ot L97.222 NON-PRESSURE CHRONIC ULCER OF LEFT CALF 07/06/2018 SHANI HUTCHINSON MD, Ot L97.312 NON-PRS CHRONIC ULCER OF RIGHT ANKLE W F 07/06/2018 SHANI HUTCHINSON MD, Ot L97.522 NON-PRS CHRONIC ULCER OTH PRT LEFT FOOT 07/08/2018 SHANI HUTCHINSON MD, Ot D68.51 ACTIVATED PROTEIN C RESISTANCE 07/08/2018 SHANI HUTCHINSON MD, Ot E44 .0 MODERATE PROTEIN-CALORIE MALNUTRITION 07/08/2018 SHANI HUTCHINSON MD, Ot I87.333 CHRONIC VENOUS HTN W ULCER AND INFLAM OF 07/08/2018 SHANI HUTCHINSON MD, Ot L97.212 NON-PRESSURE CHRONIC ULCER OF RIGHT CALF 07/08/2018 SHANI HUTCHINSON MD, Ot L97.222 NON-PRESSURE CHRONIC ULCER OF LEFT CALF 07/08/2018 SHANI HUTCHINSON MD, Ot L97.312 NON-PRS CHRONIC ULCER OF RIGHT ANKLE W F 07/08/2018 SHANI HUTCHINSON MD, Ot L97.522 NON-PRS CHRONIC ULCER OTH PRT LEFT FOOT 07/08/2018 SHANI HUTCHINSON MD, Ot Z86.718 PERSONAL HISTORY OF OTHER VENOUS THROMBO 07/08/2018 SHANI HUTCHINSON MD, Ot D68.51 ACTIVATED PROTEIN C RESISTANCE 07/08/2018 SHANI HUTCHINSON MD, Ot E44 .0 MODERATE PROTEIN-CALORIE MALNUTRITION 07/08/2018 SHANI HUTCHINSON MD, Ot I87.333 CHRONIC VENOUS HTN W ULCER AND INFLAM OF 07/08/2018 SHANI HUTCHINSON MD, Ot L97.212 NON-PRESSURE CHRONIC ULCER OF RIGHT CALF 07/08/2018 SHANI HUTCHINSON MD, Ot L97.222 NON-PRESSURE CHRONIC ULCER OF LEFT CALF 07/08/2018 SHANI HUTCHINSON MD, Ot L97.312 NON-PRS CHRONIC ULCER OF RIGHT ANKLE W F 07/08/2018 SHANI HUTCHINSON MD, Ot L97.522 NON-PRS CHRONIC ULCER OTH PRT LEFT FOOT 07/08/2018 SHANI HUTCHINSON MD, Ot Z86.718 PERSONAL HISTORY OF OTHER VENOUS THROMBO 07/08/2018 SHANI HUTCHINSON MD, Ot D68.51 ACTIVATED PROTEIN C RESISTANCE 07/08/2018 SHANI HUTCHINSON MD, Ot E44 .0 MODERATE PROTEIN-CALORIE MALNUTRITION 07/08/2018 SHANI HUTCHINSON MD, Ot I87.333 CHRONIC VENOUS HTN W ULCER AND INFLAM OF 07/08/2018 SHANI HUTCHINSON MD, Ot L97.212 NON-PRESSURE CHRONIC ULCER OF RIGHT CALF 07/08/2018 SHANI HUTCHINSON MD, Ot L97.222 NON-PRESSURE CHRONIC ULCER OF LEFT CALF 07/08/2018 SHANI HUTCHINSON MD, Ot L97.312 NON-PRS CHRONIC ULCER OF RIGHT ANKLE W F 07/08/2018 SHANI HUTCHINSON MD, Ot L97.522 NON-PRS CHRONIC ULCER OTH PRT LEFT FOOT 07/08/2018 SHANI HUTCHINSON MD, Ot Z86.718 PERSONAL HISTORY OF OTHER VENOUS THROMBO 07/08/2018 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 D68.51 ACTIVATED PROTEIN C RESISTANCE 07/08/2018 MARY PERSAUD APRN Ot E44.0 MODERATE PROTEIN-CALORIE MALNUTRITION 07/08/2018 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 I87.333 CHRONIC VENOUS HTN W ULCER AND INFLAM OF 07/08/2018 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 L97.212 NON-PRESSURE CHRONIC ULCER OF RIGHT CALF 07/08/2018 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 L97.222 NON-PRESSURE CHRONIC ULCER OF LEFT CALF 07/08/2018 MARY PERSAUD APRN Ot L97.312 NON-PRS CHRONIC ULCER OF RIGHT ANKLE W F 07/08/2018 MARY PERSAUD APRN Ot L97.522 NON-PRS CHRONIC ULCER OTH PRT LEFT FOOT 07/08/2018 MARY PERSAUD APRN Ot Z86.718 PERSONAL HISTORY OF OTHER VENOUS THROMBO 07/13/2018 SHANI HUTCHINSON MD, Ot D68.51 ACTIVATED PROTEIN C RESISTANCE 07/13/2018 SHANI HUTCHINSON MD, Ot E44 .0 MODERATE PROTEIN-CALORIE MALNUTRITION 07/13/2018 SHANI HUTCHINSON MD Ot I87.333 CHRONIC VENOUS HTN W ULCER AND INFLAM OF 07/13/2018 SHANI HUTCHINSON MD, Ot L97.212 NON-PRESSURE CHRONIC ULCER OF RIGHT CALF 07/13/2018 SHANI HUTCHINSON MD Ot L97.222 NON-PRESSURE CHRONIC ULCER OF LEFT CALF 07/13/2018 SHANI HUTCHINSON MD Ot L97.312 NON-PRS CHRONIC ULCER OF RIGHT ANKLE W F 07/13/2018 SHANI HUTCHINSON MD Ot L97.522 NON-PRS CHRONIC ULCER OTH PRT LEFT FOOT 07/13/2018 SHANI HUTCHINSON MD Ot Z86.718 PERSONAL HISTORY OF OTHER VENOUS THROMBO 07/14/2018 SHANI HUTCHINSON MD, Ot D68.51 ACTIVATED PROTEIN C RESISTANCE 07/14/2018 SHANI HUTCHINSON MD, Ot E44 .0 MODERATE PROTEIN-CALORIE MALNUTRITION 07/14/2018 SHANI HUTCHINSON MD Ot I87.333 CHRONIC VENOUS HTN W ULCER AND INFLAM OF 07/14/2018 SHANI HUTCHINSON MD Ot L97.212 NON-PRESSURE CHRONIC ULCER OF RIGHT CALF 07/14/2018 SHANI HUTCHINSON MD, Ot L97.222 NON-PRESSURE CHRONIC ULCER OF LEFT CALF 07/14/2018 SHANI HUTCHINSON MD, Ot L97.312 NON-PRS CHRONIC ULCER OF RIGHT ANKLE W F 07/14/2018 SHANI HUTCHINSON MD, Ot L97.522 NON-PRS CHRONIC ULCER OTH PRT LEFT FOOT 07/14/2018 SHANI HUTCHINSON MD, Ot Z86.718 PERSONAL HISTORY OF OTHER VENOUS THROMBO 07/14/2018 SHANI HUTCHINSON MD, Ot D68.51 ACTIVATED PROTEIN C RESISTANCE 07/14/2018 SHANI HUTCHINSON MD, Ot E44 .0 MODERATE PROTEIN-CALORIE MALNUTRITION 07/14/2018 SHANI HUTCHINSON MD, Ot I87.333 CHRONIC VENOUS HTN W ULCER AND INFLAM OF 07/14/2018 SHANI HUTCHINSON MD, Ot L97.212 NON-PRESSURE CHRONIC ULCER OF RIGHT CALF 07/14/2018 SHANI HUTCHINSON MD, Ot L97.222 NON-PRESSURE CHRONIC ULCER OF LEFT CALF 07/14/2018 SHANI HUTCHINSON MD, Ot L97.312 NON-PRS CHRONIC ULCER OF RIGHT ANKLE W F 07/14/2018 SHANI HUTCHINSON MD, Ot L97.522 NON-PRS CHRONIC ULCER OTH PRT LEFT FOOT 07/14/2018 SHANI HUTCHINSON MD, Ot Z86.718 PERSONAL HISTORY OF OTHER VENOUS THROMBO 07/14/2018 SHANI HUTCHINSON MD, Ot D68.51 ACTIVATED PROTEIN C RESISTANCE 07/14/2018 SHANI HUTCHINSON MD, Ot E44 .0 MODERATE PROTEIN-CALORIE MALNUTRITION 07/14/2018 SHANI HUTCHINSON MD, Ot I82.503 CHRONIC EMBLSM AND THOMBOS UNSP DEEP VEI 07/14/2018 SHANI HUTCHINSON MD, Ot I87.333 CHRONIC VENOUS HTN W ULCER AND INFLAM OF 07/14/2018 SHANI HUTCHINSON MD, Ot L97.212 NON-PRESSURE CHRONIC ULCER OF RIGHT CALF 07/14/2018 SHANI HUTCHINSON MD, Ot L97.222 NON-PRESSURE CHRONIC ULCER OF LEFT CALF 07/14/2018 SHANI HUTCHINSON MD, Ot L97.312 NON-PRS CHRONIC ULCER OF RIGHT ANKLE W F 07/14/2018 SHANI HUTCHINSON MD, Ot L97.522 NON-PRS CHRONIC ULCER OTH PRT LEFT FOOT 07/14/2018 SHANI HUTCHINSON MD, Ot D68.51 ACTIVATED PROTEIN C RESISTANCE 07/14/2018 SHANI HUTCHINSON MD, Ot E44 .0 MODERATE PROTEIN-CALORIE MALNUTRITION 07/14/2018 SHANI HUTCHINSON MD, Ot I87.333 CHRONIC VENOUS HTN W ULCER AND INFLAM OF 07/14/2018 SHANI HUTCHINSON MD, Ot L97.212 NON-PRESSURE CHRONIC ULCER OF RIGHT CALF 07/14/2018 SHANI HUTCHINSON MD, Ot L97.222 NON-PRESSURE CHRONIC ULCER OF LEFT CALF 07/14/2018 SHANI HUTCHINSON MD, Ot L97.312 NON-PRS CHRONIC ULCER OF RIGHT ANKLE W F 07/14/2018 SHANI HUTCHINSON MD, Ot L97.522 NON-PRS CHRONIC ULCER OTH PRT LEFT FOOT 07/14/2018 SHANI HUTCHINSON MD, Ot R19 .5 OTHER FECAL ABNORMALITIES 07/14/2018 SHANI HUTCHINSON MD, Ot Z86.718 PERSONAL HISTORY OF OTHER VENOUS THROMBO 07/15/2018 SHANI HUTCHINSON MD, Ot D68.51 ACTIVATED PROTEIN C RESISTANCE 07/15/2018 SHANI HUTCHINSON MD, Ot E44 .0 MODERATE PROTEIN-CALORIE MALNUTRITION 07/15/2018 SHANI HUTCHINSON MD, Ot I87.333 CHRONIC VENOUS HTN W ULCER AND INFLAM OF 07/15/2018 SHANI HUTCHINSON MD, Ot L97.212 NON-PRESSURE CHRONIC ULCER OF RIGHT CALF 07/15/2018 SHANI HUTCHINSON MD, Ot L97.222 NON-PRESSURE CHRONIC ULCER OF LEFT CALF 07/15/2018 SHANI HUTCHINSON MD, Ot L97.312 NON-PRS CHRONIC ULCER OF RIGHT ANKLE W F 07/15/2018 SHANI HUTCHINSON MD, Ot L97.522 NON-PRS CHRONIC ULCER OTH PRT LEFT FOOT 07/15/2018 SHANI HUTCHINSON MD, Ot Z86.718 PERSONAL HISTORY OF OTHER VENOUS THROMBO 07/26/2018 Ot 285.9 ANEM IA NOS 07/26/2018 Ot V12.51 HX- VENOUS THROMBOSIS EMBOLISM 07/26/2018 KARIN TOLBERT MD Ot 338. 29 OTHER CHRONIC PAIN 07/26/2018 KARIN TOLBERT MD Ot 722. 52 LUMB/LUMBOSAC DISC DEGEN 07/26/2018 KARIN TOLBERT MD Ot 729. 2 NEURALGIA/NEURITIS NOS 07/26/2018 KARIN TOLBERT MD Ot 719. 47 JOINT PAIN-ANKLE 07/26/2018 MARY PERSAUD APRN Ot I87.2 VENOUS INSUFFICIENCY (CHRONIC) (PERIPHER 07/26/2018 MARY PERSAUD APRN Ot L97.212 NON-PRESSURE CHRONIC ULCER OF RIGHT CALF 07/26/2018 MARY PERSAUD APRN Ot L97.222 NON-PRESSURE CHRONIC ULCER OF LEFT CALF 07/26/2018 MARY PERSAUD APRN Ot L97.312 NON-PRS CHRONIC ULCER OF RIGHT ANKLE W F 07/26/2018 MARY PERSAUD APRN Ot L97.522 NON-PRS CHRONIC ULCER OTH PRT LEFT FOOT 07/26/2018 SHANI HUTCHINSON MD Ot I87.333 CHRONIC VENOUS HTN W ULCER AND INFLAM OF 07/26/2018 SHANI HUTCHINSON MD Ot L97.212 NON-PRESSURE CHRONIC ULCER OF RIGHT CALF 07/26/2018 SHANI HUTCHINSON MD Ot L97.222 NON-PRESSURE CHRONIC ULCER OF LEFT CALF 07/26/2018 SHANI HUTCHINSON MD Ot L97.312 NON-PRS CHRONIC ULCER OF RIGHT ANKLE W F 07/26/2018 SHANI HUTCHINSON MD Ot L97.522 NON-PRS CHRONIC ULCER OTH PRT LEFT FOOT 07/26/2018 SHANI HUTCHINSON MD Ot L97.222 NON-PRESSURE CHRONIC ULCER OF LEFT CALF 07/26/2018 SHANI HUTCHINSON MD Ot L97.312 NON-PRS CHRONIC ULCER OF RIGHT ANKLE W F 07/26/2018 SHANI HUTCHINSON MD Ot L97.522 NON-PRS CHRONIC ULCER OTH PRT LEFT FOOT 07/26/2018 SHANI HUTCHINSON MD Ot I87.333 CHRONIC VENOUS HTN W ULCER AND INFLAM OF 07/26/2018 SHANI HUTCHINSON MD Ot L97.222 NON-PRESSURE CHRONIC ULCER OF LEFT CALF 07/26/2018 MARY PERSAUD APRN Ot I87.333 CHRONIC VENOUS HTN W ULCER AND INFLAM OF 07/26/2018 MARY PERSAUD APRN Ot L97.212 NON-PRESSURE CHRONIC ULCER OF RIGHT CALF 07/26/2018 MARY PERSAUD APRN Ot L97.222 NON-PRESSURE CHRONIC ULCER OF LEFT CALF 07/26/2018 MARY PERSAUD APRN Ot L97.312 NON-PRS CHRONIC ULCER OF RIGHT ANKLE W F 07/26/2018 MARY PERSAUD APRN Ot L97.522 NON-PRS CHRONIC ULCER OTH PRT LEFT FOOT 07/26/2018 SHANI HUTCHINSON MD Ot D68.51 ACTIVATED PROTEIN C RESISTANCE 07/26/2018 SHANI HUTCHINSON MD Ot I87.333 CHRONIC VENOUS HTN W ULCER AND INFLAM OF 07/26/2018 SHANI HUTCHINSON MD Ot L97.212 NON-PRESSURE CHRONIC ULCER OF RIGHT CALF 07/26/2018 SHANI HUTCHINSON MD Ot L97.222 NON-PRESSURE CHRONIC ULCER OF LEFT CALF 07/26/2018 SHANI HUTCHINSON MD Ot L97.312 NON-PRS CHRONIC ULCER OF RIGHT ANKLE W F 07/26/2018 SHANI HUTCHINSON MD Ot L97.522 NON-PRS CHRONIC ULCER OTH PRT LEFT FOOT 07/26/2018 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 D68.51 ACTIVATED PROTEIN C RESISTANCE 07/26/2018 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 I87.333 CHRONIC VENOUS HTN W ULCER AND INFLAM OF 07/26/2018 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 L97.212 NON-PRESSURE CHRONIC ULCER OF RIGHT CALF 07/26/2018 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 L97.222 NON-PRESSURE CHRONIC ULCER OF LEFT CALF 07/26/2018 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 L97.312 NON-PRS CHRONIC ULCER OF RIGHT ANKLE W F 07/26/2018 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 L97.522 NON-PRS CHRONIC ULCER OTH PRT LEFT FOOT 07/26/2018 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 D68.51 ACTIVATED PROTEIN C RESISTANCE 07/26/2018 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 I87.333 CHRONIC VENOUS HTN W ULCER AND INFLAM OF 07/26/2018 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 L97.212 NON-PRESSURE CHRONIC ULCER OF RIGHT CALF 07/26/2018 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 L97.222 NON-PRESSURE CHRONIC ULCER OF LEFT CALF 07/26/2018 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 L97.312 NON-PRS CHRONIC ULCER OF RIGHT ANKLE W F 07/26/2018 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 L97.522 NON-PRS CHRONIC ULCER OTH PRT LEFT FOOT 07/26/2018 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 D68.51 ACTIVATED PROTEIN C RESISTANCE 07/26/2018 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 I87.333 CHRONIC VENOUS HTN W ULCER AND INFLAM OF 07/26/2018 MARY PERSAUD R [employer]OTIONS ASSISTANT SALES MARKETING Ot L97.212 NON-PRESSURE CHRONIC ULCER OF RIGHT CALF 07/26/2018 MARY PERSAUD R [employer]OMOTIONS ASSISTANT SALES MARKETING Ot L97.222 NON-PRESSURE CHRONIC ULCER OF LEFT CALF 07/26/2018 MARY PERSAUD R [employer]OMOTIONS ASSISTANT SALES MARKETING Ot L97.312 NON-PRS CHRONIC ULCER OF RIGHT ANKLE W F 07/26/2018 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 L97.522 NON-PRS CHRONIC ULCER OTH PRT LEFT FOOT 07/26/2018 MARY PERSAUD R [employer]OMOTIONS ASSISTANT SALES MARKETING Ot D68.51 ACTIVATED PROTEIN C RESISTANCE 07/26/2018 MARY PERSAUD R [employer]OMOTIONS ASSISTANT SALES MARKETING Ot I87.333 CHRONIC VENOUS HTN W ULCER AND INFLAM OF 07/26/2018 MARY PERSAUD R [employer]OMOTIONS ASSISTANT SALES MARKETING Ot L97.212 NON-PRESSURE CHRONIC ULCER OF RIGHT CALF 07/26/2018 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 L97.222 NON-PRESSURE CHRONIC ULCER OF LEFT CALF 07/26/2018 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 L97.312 NON-PRS CHRONIC ULCER OF RIGHT ANKLE W F 07/26/2018 CORI MARY R [employer]OMOTIONS ASSISTANT SALES MARKETING Ot L97.522 NON-PRS CHRONIC ULCER OTH PRT LEFT FOOT 07/26/2018 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 D68.51 ACTIVATED PROTEIN C RESISTANCE 07/26/2018 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 I87.333 CHRONIC VENOUS HTN W ULCER AND INFLAM OF 07/26/2018 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 L97.212 NON-PRESSURE CHRONIC ULCER OF RIGHT CALF 07/26/2018 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 L97.222 NON-PRESSURE CHRONIC ULCER OF LEFT CALF 07/26/2018 MARY PERSAUD R [employer]OMOTIONS ASSISTANT SALES MARKETING Ot L97.312 NON-PRS CHRONIC ULCER OF RIGHT ANKLE W F 07/26/2018 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 L97.522 NON-PRS CHRONIC ULCER OTH PRT LEFT FOOT 07/26/2018 ZAIRE WESTFALL MD Ot D68.51 ACTIVATED PROTEIN C RESISTANCE 07/26/2018 ZAIRE WESTFALL MD Ot I87.333 CHRONIC VENOUS HTN W ULCER AND INFLAM OF 07/26/2018 ZAIRE WESTFALL MD Ot L97.212 NON- PRESSURE CHRONIC ULCER OF RIGHT CALF 07/26/2018 ZAIRE WESTFALL MD Ot L97.222 NON- PRESSURE CHRONIC ULCER OF LEFT CALF 07/26/2018 ZAIRE WESTFALL MD, Ot L97.312 NON- PRS CHRONIC ULCER OF RIGHT ANKLE W F 07/26/2018 ZAIRE WESTFALL MD, Ot L97.522 NON- PRS CHRONIC ULCER OTH PRT LEFT FOOT 07/26/2018 MARY PERSAUD APRN Ot D50.9 IRON DEFICIENCY ANEMIA, UNSPECIFIED 07/26/2018 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 D68.51 ACTIVATED PROTEIN C RESISTANCE 07/26/2018 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 I82.503 CHRONIC EMBLSM AND THOMBOS UNSP DEEP VEI 07/26/2018 MARY PERSAUD APRN Ot I87.333 CHRONIC VENOUS HTN W ULCER AND INFLAM OF 07/26/2018 MARY PERSAUD APRN Ot L97.212 NON-PRESSURE CHRONIC ULCER OF RIGHT CALF 07/26/2018 MARY PERSAUD APRN Ot L97.222 NON-PRESSURE CHRONIC ULCER OF LEFT CALF 07/26/2018 MARY PERSAUD APRN Ot L97.312 NON-PRS CHRONIC ULCER OF RIGHT ANKLE W F 07/26/2018 MARY PERSAUD APRN Ot L97.522 NON-PRS CHRONIC ULCER OTH PRT LEFT FOOT 07/26/2018 ZAIRE WESTFALL MD, Ot D50.9 IRON DEFICIENCY ANEMIA, UNSPECIFIED 07/26/2018 ZAIRE WESTFALL MD, Ot D68.51 ACTIVATED PROTEIN C RESISTANCE 07/26/2018 ZAIRE WESTFALL MD Ot I82.503 CHRONIC EMBLSM AND THOMBOS UNSP DEEP VEI 07/26/2018 ZAIRE WESTFALL MD Ot I87.333 CHRONIC VENOUS HTN W ULCER AND INFLAM OF 07/26/2018 ZAIRE WESTFALL MD Ot L97.212 NON- PRESSURE CHRONIC ULCER OF RIGHT CALF 07/26/2018 ZAIRE WESTFALL MD Ot L97.222 NON- PRESSURE CHRONIC ULCER OF LEFT CALF 07/26/2018 ZAIRE WESTFALL MD, Ot L97.312 NON- PRS CHRONIC ULCER OF RIGHT ANKLE W F 07/26/2018 ZAIRE WESTFALL MD, Ot L97.522 NON- PRS CHRONIC ULCER OTH PRT LEFT FOOT 07/26/2018 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 D50.9 IRON DEFICIENCY ANEMIA, UNSPECIFIED 07/26/2018 MARY PERSAUD APRN Ot D68.51 ACTIVATED PROTEIN C RESISTANCE 07/26/2018 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 I82.503 CHRONIC EMBLSM AND THOMBOS UNSP DEEP VEI 07/26/2018 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 I87.333 CHRONIC VENOUS HTN W ULCER AND INFLAM OF 07/26/2018 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 L97.212 NON-PRESSURE CHRONIC ULCER OF RIGHT CALF 07/26/2018 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 L97.222 NON-PRESSURE CHRONIC ULCER OF LEFT CALF 07/26/2018 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 L97.312 NON-PRS CHRONIC ULCER OF RIGHT ANKLE W F 07/26/2018 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 L97.522 NON-PRS CHRONIC ULCER OTH PRT LEFT FOOT 07/26/2018 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 D50.9 IRON DEFICIENCY ANEMIA, UNSPECIFIED 07/26/2018 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 D68.51 ACTIVATED PROTEIN C RESISTANCE 07/26/2018 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 I82.503 CHRONIC EMBLSM AND THOMBOS UNSP DEEP VEI 07/26/2018 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 I87.333 CHRONIC VENOUS HTN W ULCER AND INFLAM OF 07/26/2018 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 L97.212 NON-PRESSURE CHRONIC ULCER OF RIGHT CALF 07/26/2018 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 L97.222 NON-PRESSURE CHRONIC ULCER OF LEFT CALF 07/26/2018 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 L97.312 NON-PRS CHRONIC ULCER OF RIGHT ANKLE W F 07/26/2018 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 L97.522 NON-PRS CHRONIC ULCER OTH PRT LEFT FOOT 07/26/2018 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 D50.9 IRON DEFICIENCY ANEMIA, UNSPECIFIED 07/26/2018 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 D68.51 ACTIVATED PROTEIN C RESISTANCE 07/26/2018 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 I82.503 CHRONIC EMBLSM AND THOMBOS UNSP DEEP VEI 07/26/2018 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 I87.333 CHRONIC VENOUS HTN W ULCER AND INFLAM OF 07/26/2018 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 L97.212 NON-PRESSURE CHRONIC ULCER OF RIGHT CALF 07/26/2018 MARY PERSAUD APRN Ot L97.222 NON-PRESSURE CHRONIC ULCER OF LEFT CALF 07/26/2018 MARY PERSAUD APRN Ot L97.312 NON-PRS CHRONIC ULCER OF RIGHT ANKLE W F 07/26/2018 MARY PERSAUD APRN Ot L97.522 NON-PRS CHRONIC ULCER OTH PRT LEFT FOOT 07/26/2018 SHANI HUTCHINSON MD Ot D50 .9 IRON DEFICIENCY ANEMIA, UNSPECIFIED 07/26/2018 SHANI HUTCHINSON MD, Ot D68.51 ACTIVATED PROTEIN C RESISTANCE 07/26/2018 SHANI HUTCHINSON MD Ot I82.503 CHRONIC EMBLSM AND THOMBOS UNSP DEEP VEI 07/26/2018 SHANI HUTCHINSON MD Ot I87.333 CHRONIC VENOUS HTN W ULCER AND INFLAM OF 07/26/2018 SHANI HUTCHINSON MD Ot L97.212 NON-PRESSURE CHRONIC ULCER OF RIGHT CALF 07/26/2018 SHANI HUTCHINSON MD Ot L97.222 NON-PRESSURE CHRONIC ULCER OF LEFT CALF 07/26/2018 SHANI HUTCHINSON MD Ot L97.312 NON-PRS CHRONIC ULCER OF RIGHT ANKLE W F 07/26/2018 SHANI HUTCHINSON MD Ot L97.522 NON-PRS CHRONIC ULCER OTH PRT LEFT FOOT 07/26/2018 SHANI HUTCHINSON MD, Ot D50 .9 IRON DEFICIENCY ANEMIA, UNSPECIFIED 07/26/2018 SHANI HUTCHINSON MD, Ot D68.51 ACTIVATED PROTEIN C RESISTANCE 07/26/2018 SHANI HUTCHINSON MD Ot I82.503 CHRONIC EMBLSM AND THOMBOS UNSP DEEP VEI 07/26/2018 SHANI HUTCHINSON MD Ot I87.333 CHRONIC VENOUS HTN W ULCER AND INFLAM OF 07/26/2018 SHANI HUTCHINSON MD Ot L97.212 NON-PRESSURE CHRONIC ULCER OF RIGHT CALF 07/26/2018 SHANI HUTCHINSON MD Ot L97.222 NON-PRESSURE CHRONIC ULCER OF LEFT CALF 07/26/2018 SHANI HUTCHINSON MD Ot L97.312 NON-PRS CHRONIC ULCER OF RIGHT ANKLE W F 07/26/2018 SHANI HUTCHINSON MD Ot L97.522 NON-PRS CHRONIC ULCER OTH PRT LEFT FOOT 07/26/2018 SHANI HUTCHINSON MD Ot L97.222 NON-PRESSURE CHRONIC ULCER OF LEFT CALF 07/26/2018 SHANI HUTCHINSON MD, Ot D50 .9 IRON DEFICIENCY ANEMIA, UNSPECIFIED 07/26/2018 SHANI HUTCHINSON MD, Ot D68.51 ACTIVATED PROTEIN C RESISTANCE 07/26/2018 SHANI HUTCHINSON MD, Ot I82.503 CHRONIC EMBLSM AND THOMBOS UNSP DEEP VEI 07/26/2018 SHANI HUTCHINSON MD Ot I87.333 CHRONIC VENOUS HTN W ULCER AND INFLAM OF 07/26/2018 SHANI HUTCHINSON MD, Ot L97.212 NON-PRESSURE CHRONIC ULCER OF RIGHT CALF 07/26/2018 SHANI HUTCHINSON MD Ot L97.222 NON-PRESSURE CHRONIC ULCER OF LEFT CALF 07/26/2018 SHANI HUTCHINSON MD, Ot L97.312 NON-PRS CHRONIC ULCER OF RIGHT ANKLE W F 07/26/2018 SHANI HUTCHINSON MD, Ot L97.522 NON-PRS CHRONIC ULCER OTH PRT LEFT FOOT 07/26/2018 SHANI HUTCHINSON MD, Ot D50 .9 IRON DEFICIENCY ANEMIA, UNSPECIFIED 07/26/2018 SHANI HUTCHINSON MD, Ot D68.51 ACTIVATED PROTEIN C RESISTANCE 07/26/2018 SHANI HUTCHINSON MD Ot E44 .0 MODERATE PROTEIN-CALORIE MALNUTRITION 07/26/2018 SHANI HUTCHINSON MD, Ot I82.503 CHRONIC EMBLSM AND THOMBOS UNSP DEEP VEI 07/26/2018 SHANI HUTCHINSON MD, Ot I87.333 CHRONIC VENOUS HTN W ULCER AND INFLAM OF 07/26/2018 SHANI HUTCHINSON MD Ot L97.212 NON-PRESSURE CHRONIC ULCER OF RIGHT CALF 07/26/2018 SHANI HUTCHINSON MD Ot L97.222 NON-PRESSURE CHRONIC ULCER OF LEFT CALF 07/26/2018 SHANI HUTCHINSON MD, Ot L97.312 NON-PRS CHRONIC ULCER OF RIGHT ANKLE W F 07/26/2018 SHANI HUTCHINSON MD, Ot L97.522 NON-PRS CHRONIC ULCER OTH PRT LEFT FOOT 07/26/2018 SHANI HUTCHINSON MD, Ot D50 .9 IRON DEFICIENCY ANEMIA, UNSPECIFIED 07/26/2018 SHANI HUTCHINSON MD, Ot D68.51 ACTIVATED PROTEIN C RESISTANCE 07/26/2018 SHANI HUTCHINSON MD Ot E44 .0 MODERATE PROTEIN-CALORIE MALNUTRITION 07/26/2018 SHANI HUTCHINSON MD, Ot I82.503 CHRONIC EMBLSM AND THOMBOS UNSP DEEP VEI 07/26/2018 SHANI HUTCHINSON MD, Ot I87.333 CHRONIC VENOUS HTN W ULCER AND INFLAM OF 07/26/2018 SHANI HUTCHINSON MD Ot L97.212 NON-PRESSURE CHRONIC ULCER OF RIGHT CALF 07/26/2018 SHANI HUTCHINSON MD Ot L97.222 NON-PRESSURE CHRONIC ULCER OF LEFT CALF 07/26/2018 SHANI HUTCHINSON MD, Ot L97.312 NON-PRS CHRONIC ULCER OF RIGHT ANKLE W F 07/26/2018 SHANI HUTCHINSON MD Ot L97.522 NON-PRS CHRONIC ULCER OTH PRT LEFT FOOT 07/26/2018 SHANI HUTCHINSON MD, Ot D50 .9 IRON DEFICIENCY ANEMIA, UNSPECIFIED 07/26/2018 SHANI HUTCHINSON MD, Ot D68.51 ACTIVATED PROTEIN C RESISTANCE 07/26/2018 SHANI HUTCHINSON MD, Ot E44 .0 MODERATE PROTEIN-CALORIE MALNUTRITION 07/26/2018 SHANI HUTCHINSON MD, Ot I82.503 CHRONIC EMBLSM AND THOMBOS UNSP DEEP VEI 07/26/2018 SHANI HUTCHINSON MD, Ot I87.333 CHRONIC VENOUS HTN W ULCER AND INFLAM OF 07/26/2018 SHANI HUTCHINSON MD Ot L97.212 NON-PRESSURE CHRONIC ULCER OF RIGHT CALF 07/26/2018 SHANI HUTCHINSON MD Ot L97.222 NON-PRESSURE CHRONIC ULCER OF LEFT CALF 07/26/2018 SHANI HUTCHINSON MD, Ot L97.312 NON-PRS CHRONIC ULCER OF RIGHT ANKLE W F 07/26/2018 SHANI HUTCHINSON MD, Ot L97.522 NON-PRS CHRONIC ULCER OTH PRT LEFT FOOT 07/26/2018 SHANI HUTCHINSON MD, Ot E44 .0 MODERATE PROTEIN-CALORIE MALNUTRITION 07/26/2018 SHANI HUTCHINSON MD, Ot D50 .9 IRON DEFICIENCY ANEMIA, UNSPECIFIED 07/26/2018 SHANI HUTCHINSON MD, Ot D68.51 ACTIVATED PROTEIN C RESISTANCE 07/26/2018 SHANI HUTCHINSON MD, Ot E44 .0 MODERATE PROTEIN-CALORIE MALNUTRITION 07/26/2018 SHANI HUTCHINSON MD Ot I82.503 CHRONIC EMBLSM AND THOMBOS UNSP DEEP VEI 07/26/2018 SHANI HUTCHINSON MD Ot I87.333 CHRONIC VENOUS HTN W ULCER AND INFLAM OF 07/26/2018 SHANI HUTCHINSON MD Ot L97.212 NON-PRESSURE CHRONIC ULCER OF RIGHT CALF 07/26/2018 SHANI HUTCHINSON MD Ot L97.222 NON-PRESSURE CHRONIC ULCER OF LEFT CALF 07/26/2018 SHANI HUTCHINSON MD, Ot L97.312 NON-PRS CHRONIC ULCER OF RIGHT ANKLE W F 07/26/2018 SHANI HUTCHINSON MD, Ot L97.522 NON-PRS CHRONIC ULCER OTH PRT LEFT FOOT 07/26/2018 SHANI HUTCHINSON MD, Ot D50 .9 IRON DEFICIENCY ANEMIA, UNSPECIFIED 07/26/2018 SHANI HUTCHINSON MD, Ot D68.51 ACTIVATED PROTEIN C RESISTANCE 07/26/2018 SHANI HUTCHINSON MD, Ot E44 .0 MODERATE PROTEIN-CALORIE MALNUTRITION 07/26/2018 SHANI HUTCHINSON MD, Ot I82.503 CHRONIC EMBLSM AND THOMBOS UNSP DEEP VEI 07/26/2018 SHANI HUTCHINSON MD, Ot I87.333 CHRONIC VENOUS HTN W ULCER AND INFLAM OF 07/26/2018 SHANI HUTCHINSON MD, Ot L97.212 NON-PRESSURE CHRONIC ULCER OF RIGHT CALF 07/26/2018 SHANI HUTCHINSON MD Ot L97.222 NON-PRESSURE CHRONIC ULCER OF LEFT CALF 07/26/2018 SHANI HUTCHINSON MD, Ot L97.312 NON-PRS CHRONIC ULCER OF RIGHT ANKLE W F 07/26/2018 SHANI HUTCHINSON MD, Ot L97.522 NON-PRS CHRONIC ULCER OTH PRT LEFT FOOT 07/26/2018 SHANI HUTCHINSON MD, Ot D50 .9 IRON DEFICIENCY ANEMIA, UNSPECIFIED 07/26/2018 SHANI HUTCHINSON MD, Ot D68.51 ACTIVATED PROTEIN C RESISTANCE 07/26/2018 SHANI HUTCHINSON MD, Ot E44 .0 MODERATE PROTEIN-CALORIE MALNUTRITION 07/26/2018 SHANI HUTCHINSON MD, Ot I87.333 CHRONIC VENOUS HTN W ULCER AND INFLAM OF 07/26/2018 SHANI HUTCHINSON MD, Ot L97.212 NON-PRESSURE CHRONIC ULCER OF RIGHT CALF 07/26/2018 SHANI HUTCHINSON MD, Ot L97.222 NON-PRESSURE CHRONIC ULCER OF LEFT CALF 07/26/2018 SHANI HUTCHINSON MD, Ot L97.312 NON-PRS CHRONIC ULCER OF RIGHT ANKLE W F 07/26/2018 SHANI HUTCHINSON MD, Ot L97.522 NON-PRS CHRONIC ULCER OTH PRT LEFT FOOT 07/26/2018 SHANI HUTCHINSON MD, Ot Z86.718 PERSONAL HISTORY OF OTHER VENOUS THROMBO 07/26/2018 SHANI HUTCHINSON MD, Ot D50 .9 IRON DEFICIENCY ANEMIA, UNSPECIFIED 07/26/2018 SHANI HUTCHINSON MD, Ot D68.51 ACTIVATED PROTEIN C RESISTANCE 07/26/2018 SHANI HUTCHINSON MD, Ot E44 .0 MODERATE PROTEIN-CALORIE MALNUTRITION 07/26/2018 SHANI HUTCHISNON MD, Ot I87.333 CHRONIC VENOUS HTN W ULCER AND INFLAM OF 07/26/2018 SHANI HUTCHINSON MD, Ot L97.212 NON-PRESSURE CHRONIC ULCER OF RIGHT CALF 07/26/2018 SHANI HUTCHINSON MD, Ot L97.222 NON-PRESSURE CHRONIC ULCER OF LEFT CALF 07/26/2018 SHANI HUTCHINSON MD, Ot L97.312 NON-PRS CHRONIC ULCER OF RIGHT ANKLE W F 07/26/2018 SHANI HUTCHINSON MD, Ot L97.522 NON-PRS CHRONIC ULCER OTH PRT LEFT FOOT 07/26/2018 SHANI HUTCHINSON MD, Ot Z86.718 PERSONAL HISTORY OF OTHER VENOUS THROMBO 07/26/2018 DEANA ALARCON MD, Ot D50. 0 IRON DEFICIENCY ANEMIA SECONDARY TO BLOO 07/26/2018 DEANA ALARCON MD, Ot D68. 51 ACTIVATED PROTEIN C RESISTANCE 07/26/2018 DEANA ALARCON MD, Ot E66. 01 MORBID (SEVERE) OBESITY DUE TO EXCESS CA 07/26/2018 DEANA ALARCON MD, Ot I82.503 CHRONIC EMBLSM AND THOMBOS UNSP DEEP VEI 07/26/2018 DEANA ALARCON MD, Ot K29. 70 GASTRITIS, UNSPECIFIED, WITHOUT BLEEDING 07/26/2018 DEANA ALARCON MD, Ot Z68. 39 BODY MASS INDEX (BMI) 39.0-39.9, ADULT 07/26/2018 DEANA ALARCON MD, Ot Z79. 01 SHELTER (CURRENT) USE OF ANTICOAGULANT 07/26/2018 DEANA ALARCON MD, Ot Z79. 82 SHELTER (CURRENT) USE OF ASPIRIN 07/26/2018 DEANA ALARCON MD, Ot Z79.899 OTHER SHELTER (CURRENT) DRUG THERAPY 07/26/2018 SHANI HUTCHINSON MD, Ot D50 .9 IRON DEFICIENCY ANEMIA, UNSPECIFIED 07/26/2018 SHANI HUTCHINSON MD, Ot D68.51 ACTIVATED PROTEIN C RESISTANCE 07/26/2018 SHANI HUTCHINSON MD, Ot E44 .0 MODERATE PROTEIN-CALORIE MALNUTRITION 07/26/2018 SHANI HUTCHINSON MD, Ot I82.503 CHRONIC EMBLSM AND THOMBOS UNSP DEEP VEI 07/26/2018 SHANI HUTCHINSON MD, Ot I87.333 CHRONIC VENOUS HTN W ULCER AND INFLAM OF 07/26/2018 SHANI HUTCHINSON MD Ot L97.212 NON-PRESSURE CHRONIC ULCER OF RIGHT CALF 07/26/2018 SHANI HUTCHINSON MD Ot L97.222 NON-PRESSURE CHRONIC ULCER OF LEFT CALF 07/26/2018 SHANI HUTCHINSON MD, Ot L97.312 NON-PRS CHRONIC ULCER OF RIGHT ANKLE W F 07/26/2018 SHANI HUTCHINSON MD, Ot L97.522 NON-PRS CHRONIC ULCER OTH PRT LEFT FOOT 07/26/2018 SHANI HUTCHINSON MD, Ot D50 .9 IRON DEFICIENCY ANEMIA, UNSPECIFIED 07/26/2018 SHANI HUTCHINSON MD, Ot D68.51 ACTIVATED PROTEIN C RESISTANCE 07/26/2018 SHANI HUTCHINSON MD, Ot E44 .0 MODERATE PROTEIN-CALORIE MALNUTRITION 07/26/2018 SHANI HUTCHINSON MD, Ot I82.503 CHRONIC EMBLSM AND THOMBOS UNSP DEEP VEI 07/26/2018 SHANI HUTCHINSON MD, Ot I87.333 CHRONIC VENOUS HTN W ULCER AND INFLAM OF 07/26/2018 SHANI HUTCHINSON MD Ot L97.212 NON-PRESSURE CHRONIC ULCER OF RIGHT CALF 07/26/2018 SHANI HUTCHINSON MD Ot L97.222 NON-PRESSURE CHRONIC ULCER OF LEFT CALF 07/26/2018 SHANI HUTCHINSON MD, Ot L97.312 NON-PRS CHRONIC ULCER OF RIGHT ANKLE W F 07/26/2018 SHANI HUTCHINSON MD, Ot L97.522 NON-PRS CHRONIC ULCER OTH PRT LEFT FOOT 07/26/2018 SHANI HUTCHINSON MD, Ot D50 .9 IRON DEFICIENCY ANEMIA, UNSPECIFIED 07/26/2018 SHANI HUTCHINSON MD, Ot D68.51 ACTIVATED PROTEIN C RESISTANCE 07/26/2018 SHANI HUTCHINSON MD, Ot E44 .0 MODERATE PROTEIN-CALORIE MALNUTRITION 07/26/2018 SHANI HUTCHINSON MD Ot I87.333 CHRONIC VENOUS HTN W ULCER AND INFLAM OF 07/26/2018 SHANI HUTCHINSON MD Ot L97.212 NON-PRESSURE CHRONIC ULCER OF RIGHT CALF 07/26/2018 SHANI HUTCHINSON MD, Ot L97.222 NON-PRESSURE CHRONIC ULCER OF LEFT CALF 07/26/2018 SHANI HUTCHINSON MD, Ot L97.312 NON-PRS CHRONIC ULCER OF RIGHT ANKLE W F 07/26/2018 SHANI HUTCHINSON MD, Ot L97.522 NON-PRS CHRONIC ULCER OTH PRT LEFT FOOT 07/26/2018 SHANI HUTCHINSON MD, Ot Z86.718 PERSONAL HISTORY OF OTHER VENOUS THROMBO 07/26/2018 SHANI HUTCHINSON MD, Ot D68.51 ACTIVATED PROTEIN C RESISTANCE 07/26/2018 SHANI HUTCHINSON MD, Ot E44 .0 MODERATE PROTEIN-CALORIE MALNUTRITION 07/26/2018 SHANI HUTCHINSON MD, Ot I87.333 CHRONIC VENOUS HTN W ULCER AND INFLAM OF 07/26/2018 SHANI HUTCHINSON MD, Ot L97.212 NON-PRESSURE CHRONIC ULCER OF RIGHT CALF 07/26/2018 SHANI HUTCHINSON MD, Ot L97.222 NON-PRESSURE CHRONIC ULCER OF LEFT CALF 07/26/2018 SHANI HUTCHINSON MD, Ot L97.312 NON-PRS CHRONIC ULCER OF RIGHT ANKLE W F 07/26/2018 SHANI HUTCHINSON MD, Ot L97.522 NON-PRS CHRONIC ULCER OTH PRT LEFT FOOT 07/26/2018 SHANI HUTCHINSON MD, Ot Z86.718 PERSONAL HISTORY OF OTHER VENOUS THROMBO 07/26/2018 SHANI HUTCHINSON MD, Ot D68.51 ACTIVATED PROTEIN C RESISTANCE 07/26/2018 SHANI HUTCHINSON MD, Ot E44 .0 MODERATE PROTEIN-CALORIE MALNUTRITION 07/26/2018 SHANI HUTCHINSON MD, Ot I87.333 CHRONIC VENOUS HTN W ULCER AND INFLAM OF 07/26/2018 SHANI HUTCHINSON MD, Ot L97.212 NON-PRESSURE CHRONIC ULCER OF RIGHT CALF 07/26/2018 SHANI HUTCHINSON MD, Ot L97.222 NON-PRESSURE CHRONIC ULCER OF LEFT CALF 07/26/2018 SHANI HUTCHINSON MD, Ot L97.312 NON-PRS CHRONIC ULCER OF RIGHT ANKLE W F 07/26/2018 SHANI HUTCHINSON MD, Ot L97.522 NON-PRS CHRONIC ULCER OTH PRT LEFT FOOT 07/26/2018 SHANI HUTCHINSON MD, Ot Z86.718 PERSONAL HISTORY OF OTHER VENOUS THROMBO 07/26/2018 SHANI HUTCHINSON MD, Ot D68.51 ACTIVATED PROTEIN C RESISTANCE 07/26/2018 SHANI HUTCHINSON MD, Ot E44 .0 MODERATE PROTEIN-CALORIE MALNUTRITION 07/26/2018 SHANI HUTCHINSON MD, Ot I87.333 CHRONIC VENOUS HTN W ULCER AND INFLAM OF 07/26/2018 SHANI HUTCHINSON MD, Ot L97.212 NON-PRESSURE CHRONIC ULCER OF RIGHT CALF 07/26/2018 SHANI HUTCHINSON MD, Ot L97.222 NON-PRESSURE CHRONIC ULCER OF LEFT CALF 07/26/2018 SHANI HUTCHINSON MD, Ot L97.312 NON-PRS CHRONIC ULCER OF RIGHT ANKLE W F 07/26/2018 SHANI HUTCHINSON MD, Ot L97.522 NON-PRS CHRONIC ULCER OTH PRT LEFT FOOT 07/26/2018 SHANI HUTCHINSON MD, Ot Z86.718 PERSONAL HISTORY OF OTHER VENOUS THROMBO 07/26/2018 SHANI HUTCHINSON MD, Ot D68.51 ACTIVATED PROTEIN C RESISTANCE 07/26/2018 SHANI HUTCHINSON MD, Ot E44 .0 MODERATE PROTEIN-CALORIE MALNUTRITION 07/26/2018 SHANI HUTCHINSON MD, Ot I87.333 CHRONIC VENOUS HTN W ULCER AND INFLAM OF 07/26/2018 SHANI HUTCHINSON MD, Ot L97.212 NON-PRESSURE CHRONIC ULCER OF RIGHT CALF 07/26/2018 SHANI HUTCHINSON MD, Ot L97.222 NON-PRESSURE CHRONIC ULCER OF LEFT CALF 07/26/2018 SHANI HUTCHINSON MD, Ot L97.312 NON-PRS CHRONIC ULCER OF RIGHT ANKLE W F 07/26/2018 SHANI HUTCHINSON MD, Ot L97.522 NON-PRS CHRONIC ULCER OTH PRT LEFT FOOT 07/26/2018 SHANI HUTCHINSON MD, Ot Z86.718 PERSONAL HISTORY OF OTHER VENOUS THROMBO 07/26/2018 MARY PERSAUD APRN Ot D68.51 ACTIVATED PROTEIN C RESISTANCE 07/26/2018 MARY PERSAUD APRN Ot E44.0 MODERATE PROTEIN-CALORIE MALNUTRITION 07/26/2018 MARY PERSAUD APRN Ot I87.333 CHRONIC VENOUS HTN W ULCER AND INFLAM OF 07/26/2018 MARY PERSAUD APRN Ot L97.212 NON-PRESSURE CHRONIC ULCER OF RIGHT CALF 07/26/2018 MARY PERSAUD APRN Ot L97.222 NON-PRESSURE CHRONIC ULCER OF LEFT CALF 07/26/2018 MARY PERSAUD APRN Ot L97.312 NON-PRS CHRONIC ULCER OF RIGHT ANKLE W F 07/26/2018 MARY PERSAUD APRN Ot L97.522 NON-PRS CHRONIC ULCER OTH PRT LEFT FOOT 07/26/2018 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 Z86.718 PERSONAL HISTORY OF OTHER VENOUS THROMBO 07/26/2018 SHANI HUTCHINSON MD, Ot D68.51 ACTIVATED PROTEIN C RESISTANCE 07/26/2018 SHANI HUTCHINSON MD Ot E44 .0 MODERATE PROTEIN-CALORIE MALNUTRITION 07/26/2018 SHANI HUTCHINSON MD Ot I87.333 CHRONIC VENOUS HTN W ULCER AND INFLAM OF 07/26/2018 SHANI HUTCHINSON MD Ot L97.212 NON-PRESSURE CHRONIC ULCER OF RIGHT CALF 07/26/2018 SHANI HUTCHINSON MD Ot L97.222 NON-PRESSURE CHRONIC ULCER OF LEFT CALF 07/26/2018 SHANI HUTCHINSON MD Ot L97.312 NON-PRS CHRONIC ULCER OF RIGHT ANKLE W F 07/26/2018 SHANI HUTCHINSON MD Ot L97.522 NON-PRS CHRONIC ULCER OTH PRT LEFT FOOT 07/26/2018 SHANI HUTCHINSON MD Ot Z86.718 PERSONAL HISTORY OF OTHER VENOUS THROMBO 07/26/2018 MARY PERSAUD APRN Ot D68.51 ACTIVATED PROTEIN C RESISTANCE 07/26/2018 MARY PERSAUD APRN Ot E44.0 MODERATE PROTEIN-CALORIE MALNUTRITION 07/26/2018 MARY PERSAUD APRN Ot I87.333 CHRONIC VENOUS HTN W ULCER AND INFLAM OF 07/26/2018 MARY PERSAUD APRN Ot L97.212 NON-PRESSURE CHRONIC ULCER OF RIGHT CALF 07/26/2018 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 L97.222 NON-PRESSURE CHRONIC ULCER OF LEFT CALF 07/26/2018 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 L97.312 NON-PRS CHRONIC ULCER OF RIGHT ANKLE W F 07/26/2018 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 L97.522 NON-PRS CHRONIC ULCER OTH PRT LEFT FOOT 07/26/2018 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 Z86.718 PERSONAL HISTORY OF OTHER VENOUS THROMBO 07/26/2018 SHANI HUTCHINSON MD Ot D68.51 ACTIVATED PROTEIN C RESISTANCE 07/26/2018 SHANI HUTCHINSON MD, Ot E44 .0 MODERATE PROTEIN-CALORIE MALNUTRITION 07/26/2018 SHANI HUTCHINSON MD, Ot I87.333 CHRONIC VENOUS HTN W ULCER AND INFLAM OF 07/26/2018 SHANI HUTCHINSON MD, Ot L97.212 NON-PRESSURE CHRONIC ULCER OF RIGHT CALF 07/26/2018 SHANI HUTCHINSON MD, Ot L97.222 NON-PRESSURE CHRONIC ULCER OF LEFT CALF 07/26/2018 SHANI HUTCHINSON MD, Ot L97.312 NON-PRS CHRONIC ULCER OF RIGHT ANKLE W F 07/26/2018 SHANI HUTCHINSON MD, Ot L97.522 NON-PRS CHRONIC ULCER OTH PRT LEFT FOOT 07/26/2018 SHANI HUTCHINSON MD, Ot Z86.718 PERSONAL HISTORY OF OTHER VENOUS THROMBO 07/26/2018 SHANI HUTCHINSON MD, Ot D68.51 ACTIVATED PROTEIN C RESISTANCE 07/26/2018 SHANI HUTCHINSON MD, Ot E44 .0 MODERATE PROTEIN-CALORIE MALNUTRITION 07/26/2018 SHANI HUTCHINSON MD, Ot I87.333 CHRONIC VENOUS HTN W ULCER AND INFLAM OF 07/26/2018 SHANI HUTCHINSON MD, Ot L97.212 NON-PRESSURE CHRONIC ULCER OF RIGHT CALF 07/26/2018 SHANI HUTCHINSON MD, Ot L97.222 NON-PRESSURE CHRONIC ULCER OF LEFT CALF 07/26/2018 SHANI HUTCIHNSON MD, Ot L97.312 NON-PRS CHRONIC ULCER OF RIGHT ANKLE W F 07/26/2018 SHANI HUTCHINSON MD, Ot L97.522 NON-PRS CHRONIC ULCER OTH PRT LEFT FOOT 07/26/2018 SHANI HUTCHINSON MD, Ot Z86.718 PERSONAL HISTORY OF OTHER VENOUS THROMBO 07/26/2018 SHANI HUTCHINSON MD, Ot D68.51 ACTIVATED PROTEIN C RESISTANCE 07/26/2018 SHANI HUTCHINSON MD, Ot E44 .0 MODERATE PROTEIN-CALORIE MALNUTRITION 07/26/2018 SHANI HUTCHINSON MD, Ot I82.503 CHRONIC EMBLSM AND THOMBOS UNSP DEEP VEI 07/26/2018 SHANI HUTCHINSON MD, Ot I87.333 CHRONIC VENOUS HTN W ULCER AND INFLAM OF 07/26/2018 SHANI HUTCHINSON MD, Ot L97.212 NON-PRESSURE CHRONIC ULCER OF RIGHT CALF 07/26/2018 SHANI HUTCHINSON MD, Ot L97.222 NON-PRESSURE CHRONIC ULCER OF LEFT CALF 07/26/2018 SHANI HUTCHINSON MD, Ot L97.312 NON-PRS CHRONIC ULCER OF RIGHT ANKLE W F 07/26/2018 SHANI HUTCHINSON MD, Ot L97.522 NON-PRS CHRONIC ULCER OTH PRT LEFT FOOT 07/26/2018 SHANI HUTCHINSON MD, Ot D68.51 ACTIVATED PROTEIN C RESISTANCE 07/26/2018 SHANI HUTCHINSON MD, Ot E44 .0 MODERATE PROTEIN-CALORIE MALNUTRITION 07/26/2018 SHANI HUTCHINSON MD, Ot I87.333 CHRONIC VENOUS HTN W ULCER AND INFLAM OF 07/26/2018 SHANI HUTCHINSON MD, Ot L97.212 NON-PRESSURE CHRONIC ULCER OF RIGHT CALF 07/26/2018 SHANI HUTCHINSON MD, Ot L97.222 NON-PRESSURE CHRONIC ULCER OF LEFT CALF 07/26/2018 SHANI HUTCHINSON MD, Ot L97.312 NON-PRS CHRONIC ULCER OF RIGHT ANKLE W F 07/26/2018 SHANI HUTCHINSON MD, Ot L97.522 NON-PRS CHRONIC ULCER OTH PRT LEFT FOOT 07/26/2018 SHANI HUTCHINSON MD, Ot Z86.718 PERSONAL HISTORY OF OTHER VENOUS THROMBO 07/26/2018 SHANI HUTCHINSON MD, Ot D68.51 ACTIVATED PROTEIN C RESISTANCE 07/26/2018 SHANI HUTCHINSON MD, Ot E44 .0 MODERATE PROTEIN-CALORIE MALNUTRITION 07/26/2018 SHANI HUTCHINSON MD, Ot I87.333 CHRONIC VENOUS HTN W ULCER AND INFLAM OF 07/26/2018 SHANI HUTCHINSON MD, Ot L97.212 NON-PRESSURE CHRONIC ULCER OF RIGHT CALF 07/26/2018 SHANI HUTCHINSON MD, Ot L97.222 NON-PRESSURE CHRONIC ULCER OF LEFT CALF 07/26/2018 SHANI HUTCHINSON MD, Ot L97.312 NON-PRS CHRONIC ULCER OF RIGHT ANKLE W F 07/26/2018 SHANI HUTCHINSON MD, Ot L97.522 NON-PRS CHRONIC ULCER OTH PRT LEFT FOOT 07/26/2018 SHANI HUTCHINSON MD, Ot Z86.718 PERSONAL HISTORY OF OTHER VENOUS THROMBO 07/26/2018 SHANI HUTCHINSON MD, Ot D68.51 ACTIVATED PROTEIN C RESISTANCE 07/26/2018 SHANI HUTCHINSON MD Ot E44 .0 MODERATE PROTEIN-CALORIE MALNUTRITION 07/26/2018 SHANI HUTCHINSON MD, Ot I87.333 CHRONIC VENOUS HTN W ULCER AND INFLAM OF 07/26/2018 EVANGELINA MD, SHANI G Ot L97.212 NON-PRESSURE CHRONIC ULCER OF RIGHT CALF 07/26/2018 SHANI HUTCHINSON MD Ot L97.222 NON-PRESSURE CHRONIC ULCER OF LEFT CALF 07/26/2018 SHANI HUTCHINSON MD Ot L97.312 NON-PRS CHRONIC ULCER OF RIGHT ANKLE W F 07/26/2018 SHANI HUTCHINSON MD Ot L97.522 NON-PRS CHRONIC ULCER OTH PRT LEFT FOOT 07/26/2018 SHANI HUTCHINSON MD Ot R19 .5 OTHER FECAL ABNORMALITIES 07/26/2018 SHANI HUTCHINSON MD Ot Z86.718 PERSONAL HISTORY OF OTHER VENOUS THROMBO 07/26/2018 MARY PERSAUD APRN Ot D68.51 ACTIVATED PROTEIN C RESISTANCE 07/26/2018 MARY PERSAUD APRN Ot E44.0 MODERATE PROTEIN-CALORIE MALNUTRITION 07/26/2018 MARY PERSAUD APRN Ot I82.503 CHRONIC EMBLSM AND THOMBOS UNSP DEEP VEI 07/26/2018 MARY PERSAUD APRN Ot I87.333 CHRONIC VENOUS HTN W ULCER AND INFLAM OF 07/26/2018 MARY PERSAUD APRN Ot L97.212 NON-PRESSURE CHRONIC ULCER OF RIGHT CALF 07/26/2018 MARY PERSAUD APRN Ot L97.222 NON-PRESSURE CHRONIC ULCER OF LEFT CALF 07/26/2018 MARY PERSAUD APRN Ot L97.312 NON-PRS CHRONIC ULCER OF RIGHT ANKLE W F 07/26/2018 MARY PERSAUD APRN Ot L97.522 NON-PRS CHRONIC ULCER OTH PRT LEFT FOOT 07/26/2018 MARY PERSAUD APRN Ot R19.5 OTHER FECAL ABNORMALITIES 07/27/2018 SHANI HUTCHINSON MD Ot D68.51 ACTIVATED PROTEIN C RESISTANCE 07/27/2018 SHANI HUTCHINSON MD Ot E44 .0 MODERATE PROTEIN-CALORIE MALNUTRITION 07/27/2018 SHANI HUTCHINSON MD Ot I87.333 CHRONIC VENOUS HTN W ULCER AND INFLAM OF 07/27/2018 SHANI HUTCHINSON MD Ot L97.212 NON-PRESSURE CHRONIC ULCER OF RIGHT CALF 07/27/2018 SHANI HUTCHINSON MD Ot L97.222 NON-PRESSURE CHRONIC ULCER OF LEFT CALF 07/27/2018 SHANI HUTCHINSON MD Ot L97.312 NON-PRS CHRONIC ULCER OF RIGHT ANKLE W F 07/27/2018 SHANI HUTCHINSON MD, Ot L97.522 NON-PRS CHRONIC ULCER OTH PRT LEFT FOOT 07/27/2018 SHANI HUTCHINSON MD, Ot Z86.718 PERSONAL HISTORY OF OTHER VENOUS THROMBO 07/29/2018 SHANI HUTCHINSON MD, Ot D68.51 ACTIVATED PROTEIN C RESISTANCE 07/29/2018 SHANI HUTCHINSON MD, Ot E44 .0 MODERATE PROTEIN-CALORIE MALNUTRITION 07/29/2018 SHANI HUTCHINSON MD, Ot I87.333 CHRONIC VENOUS HTN W ULCER AND INFLAM OF 07/29/2018 SHANI HUTCHINSON MD, Ot L97.212 NON-PRESSURE CHRONIC ULCER OF RIGHT CALF 07/29/2018 SHANI HUTCHINSON MD, Ot L97.222 NON-PRESSURE CHRONIC ULCER OF LEFT CALF 07/29/2018 SHANI HUTCHINSON MD, Ot L97.312 NON-PRS CHRONIC ULCER OF RIGHT ANKLE W F 07/29/2018 SHANI HUTCHINSON MD, Ot L97.522 NON-PRS CHRONIC ULCER OTH PRT LEFT FOOT 07/29/2018 SHANI HUTCHINSON MD, Ot Z86.718 PERSONAL HISTORY OF OTHER VENOUS THROMBO 07/29/2018 SHANI HUTCHINSON MD, Ot E44 .0 MODERATE PROTEIN-CALORIE MALNUTRITION 08/03/2018 SHANI HUTCHINSON MD, Ot D68.51 ACTIVATED PROTEIN C RESISTANCE 08/03/2018 SHANI HUTCHINSON MD, Ot E44 .0 MODERATE PROTEIN-CALORIE MALNUTRITION 08/03/2018 SHANI HUTCHINSON MD, Ot I82.503 CHRONIC EMBLSM AND THOMBOS UNSP DEEP VEI 08/03/2018 SHANI HUTCHINSON MD, Ot I87.333 CHRONIC VENOUS HTN W ULCER AND INFLAM OF 08/03/2018 SHANI HUTCHINSON MD, Ot L97.212 NON-PRESSURE CHRONIC ULCER OF RIGHT CALF 08/03/2018 SHANI HUTCHINSON MD, Ot L97.222 NON-PRESSURE CHRONIC ULCER OF LEFT CALF 08/03/2018 SHANI HUTCHINSON MD, Ot L97.312 NON-PRS CHRONIC ULCER OF RIGHT ANKLE W F 08/03/2018 SHANI HUTCHINSON MD, Ot L97.522 NON-PRS CHRONIC ULCER OTH PRT LEFT FOOT 08/05/2018 SHANI HUTCHINSON MD, Ot D68.51 ACTIVATED PROTEIN C RESISTANCE 08/05/2018 SHANI HUTCHINSON MD, Ot E44 .0 MODERATE PROTEIN-CALORIE MALNUTRITION 08/05/2018 SHANI HUTCHINSON MD, Ot I87.333 CHRONIC VENOUS HTN W ULCER AND INFLAM OF 08/05/2018 SHANI HUTCHINSON MD, Ot L97.212 NON-PRESSURE CHRONIC ULCER OF RIGHT CALF 08/05/2018 SHANI HUTCHINSON MD, Ot L97.222 NON-PRESSURE CHRONIC ULCER OF LEFT CALF 08/05/2018 SHANI HUTCHINSON MD, Ot L97.312 NON-PRS CHRONIC ULCER OF RIGHT ANKLE W F 08/05/2018 SHANI HUTCHINSON MD, Ot L97.522 NON-PRS CHRONIC ULCER OTH PRT LEFT FOOT 08/05/2018 SHANI HUTCHINSON MD, Ot Z86.718 PERSONAL HISTORY OF OTHER VENOUS THROMBO 08/05/2018 SHANI HUTCHINSON MD, Ot D68.51 ACTIVATED PROTEIN C RESISTANCE 08/05/2018 SHANI HUTCHINSON MD, Ot E44 .0 MODERATE PROTEIN-CALORIE MALNUTRITION 08/05/2018 SHANI HUTCHINSON MD, Ot I87.333 CHRONIC VENOUS HTN W ULCER AND INFLAM OF 08/05/2018 SHANI HUTCHINSON MD, Ot L97.212 NON-PRESSURE CHRONIC ULCER OF RIGHT CALF 08/05/2018 SHANI HUTCHINSON MD Ot L97.222 NON-PRESSURE CHRONIC ULCER OF LEFT CALF 08/05/2018 SHANI HUTCHINSON MD, Ot L97.312 NON-PRS CHRONIC ULCER OF RIGHT ANKLE W F 08/05/2018 SHANI HUTCHINSON MD, Ot L97.522 NON-PRS CHRONIC ULCER OTH PRT LEFT FOOT 08/05/2018 SHANI HUTCHINSON MD, Ot Z86.718 PERSONAL HISTORY OF OTHER VENOUS THROMBO 08/06/2018 PEDRO HINSON DO Ot Z01.8 18 ENCOUNTER FOR OTHER PREPROCEDURAL EXAMIN 08/09/2018 PEDRO HINSON DO Ot D64.9 ANEMIA, UNSPECIFIED 08/09/2018 PEDRO HINSON DO Ot D68.2 HEREDITARY DEFICIENCY OF OTHER CLOTTING 08/09/2018 PEDRO HINSON DO Ot E66.9 OBESITY, UNSPECIFIED 08/09/2018 PEDRO HINSON DO Ot K21.9 GASTRO-ESOPHAGEAL REFLUX DISEASE WITHOUT 08/09/2018 PEDRO HINSON DO Ot K25.9 GASTRIC ULCER, UNSP ACUTE OR CHRONIC, 08/09/2018 PEDRO HINSON DO Ot K29.5 0 UNSPECIFIED CHRONIC GASTRITIS WITHOUT BL 08/09/2018 PEDRO HINSON DO Ot K44.9 DIAPHRAGMATIC HERNIA WITHOUT OBSTRUCTION 08/09/2018 PEDRO HINSON DO, Ot 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 W/O PERFORATION OR AB 08/09/2018 PEDRO HINSON DO Ot K64.8 OTHER HEMORRHOIDS 08/09/2018 PEDRO HINSON DO Ot Z68.3 5 BODY MASS INDEX (BMI) 35.0-35.9, ADULT 08/09/2018 PEDRO HINSON DO Ot Z79.0 1 SHELTER (CURRENT) USE OF ANTICOAGULANT 08/09/2018 PEDRO HINOSN DO Ot Z79.8 99 OTHER SHELTER (CURRENT) DRUG THERAPY 08/09/2018 PEDRO HINSON DO, Ot Z86.0 10 PERSONAL HISTORY OF COLONIC POLYPS 08/09/2018 PEDRO HINSON DO Ot Z86.7 18 PERSONAL HISTORY OF OTHER VENOUS THROMBO 08/09/2018 PEDRO HINSON DO Ot Z01.8 18 ENCOUNTER FOR OTHER PREPROCEDURAL EXAMIN 08/10/2018 SHANI HUTCHINSON MD, Ot D68.51 ACTIVATED PROTEIN C RESISTANCE 08/10/2018 SHANI HUTCHINSON MD, Ot E44 .0 MODERATE PROTEIN-CALORIE MALNUTRITION 08/10/2018 SHANI HUTCHINSON MD, Ot I82.503 CHRONIC EMBLSM AND THOMBOS UNSP DEEP VEI 08/10/2018 SHANI HUTCHINSON MD Ot I87.333 CHRONIC VENOUS HTN W ULCER AND INFLAM OF 08/10/2018 SHANI HUTCHINSON MD Ot L97.212 NON-PRESSURE CHRONIC ULCER OF RIGHT CALF 08/10/2018 SHANI HUTCHINSON MD, Ot L97.222 NON-PRESSURE CHRONIC ULCER OF LEFT CALF 08/10/2018 SHANI HUTCHINSON MD, Ot L97.312 NON-PRS CHRONIC ULCER OF RIGHT ANKLE W F 08/10/2018 SHANI HUTCHINSON MD, Ot L97.522 NON-PRS CHRONIC ULCER OTH PRT LEFT FOOT 08/10/2018 SHANI HUTCHINSON MD, Ot D68.51 ACTIVATED PROTEIN C RESISTANCE 08/10/2018 SHANI HUTCHINSON MD, Ot E44 .0 MODERATE PROTEIN-CALORIE MALNUTRITION 08/10/2018 SHANI HUTCHINSON MD, Ot I82.503 CHRONIC EMBLSM AND THOMBOS UNSP DEEP VEI 08/10/2018 SHANI HUTCHINSON MD, Ot I87.333 CHRONIC VENOUS HTN W ULCER AND INFLAM OF 08/10/2018 SHANI HUTCHINSON MD, Ot L97.212 NON-PRESSURE CHRONIC ULCER OF RIGHT CALF 08/10/2018 SHANI HUTCHINSON MD, Ot L97.222 NON-PRESSURE CHRONIC ULCER OF LEFT CALF 08/10/2018 SHANI HUTCHINSON MD, Ot L97.312 NON-PRS CHRONIC ULCER OF RIGHT ANKLE W F 08/10/2018 SHANI HUTCHINSON MD, Ot L97.522 NON-PRS CHRONIC ULCER OTH PRT LEFT FOOT 08/12/2018 SHANI HUTCHINSON MD, Ot D68.51 ACTIVATED PROTEIN C RESISTANCE 08/12/2018 SHANI HUTCHINSON MD, Ot E44 .0 MODERATE PROTEIN-CALORIE MALNUTRITION 08/12/2018 SHANI HUTCHINSON MD, Ot I87.333 CHRONIC VENOUS HTN W ULCER AND INFLAM OF 08/12/2018 SHANI HUTCHINSON MD, Ot L97.212 NON-PRESSURE CHRONIC ULCER OF RIGHT CALF 08/12/2018 SHANI HUTCHINSON MD, Ot L97.222 NON-PRESSURE CHRONIC ULCER OF LEFT CALF 08/12/2018 SHANI HUTCHINSON MD, Ot L97.312 NON-PRS CHRONIC ULCER OF RIGHT ANKLE W F 08/12/2018 SHANI HUTCHINSON MD, Ot L97.522 NON-PRS CHRONIC ULCER OTH PRT LEFT FOOT 08/12/2018 SHANI HUTCHINSON MD, Ot Z86.718 PERSONAL HISTORY OF OTHER VENOUS THROMBO 08/12/2018 SHANI HUTCHINSON MD, Ot E44 .0 MODERATE PROTEIN-CALORIE MALNUTRITION 08/12/2018 SHANI HUTCHINSON MD, Ot D68.51 ACTIVATED PROTEIN C RESISTANCE 08/12/2018 SHANI HUTCHINSON MD, Ot E44 .0 MODERATE PROTEIN-CALORIE MALNUTRITION 08/12/2018 SHANI HUTCHINSON MD, Ot I82.503 CHRONIC EMBLSM AND THOMBOS UNSP DEEP VEI 08/12/2018 SHANI HUTCHINSON MD, Ot I87.333 CHRONIC VENOUS HTN W ULCER AND INFLAM OF 08/12/2018 SHANI HUTCHINSON MD, Ot L97.212 NON-PRESSURE CHRONIC ULCER OF RIGHT CALF 08/12/2018 SHANI HUTCHINSON MD, Ot L97.222 NON-PRESSURE CHRONIC ULCER OF LEFT CALF 08/12/2018 SHANI HUTCHINSON MD, Ot L97.312 NON-PRS CHRONIC ULCER OF RIGHT ANKLE W F 08/12/2018 EVANGELINA LLANOS, SHANI Owen Ot L97.522 NON-PRS CHRONIC ULCER OTH PRT LEFT FOOT 08/12/2018 PEDRO HINSON DO Ot D64.9 ANEMIA, UNSPECIFIED 08/12/2018 PEDRO HINSON DO B Ot D68.2 HEREDITARY DEFICIENCY OF OTHER CLOTTING 08/12/2018 PEDRO HINSON DO B Ot E66.9 OBESITY, UNSPECIFIED 08/12/2018 ROSE HINSON DOIC B Ot K21.9 GASTRO-ESOPHAGEAL REFLUX DISEASE WITHOUT 08/12/2018 ROSE HINSON DOIC B Ot K25.9 GASTRIC ULCER, UNSP ACUTE OR CHRONIC, 08/12/2018 PEDRO HINSON DO B Ot K29.5 0 UNSPECIFIED CHRONIC GASTRITIS WITHOUT BL 08/12/2018 PEDRO HINSON DO B Ot K44.9 DIAPHRAGMATIC HERNIA WITHOUT OBSTRUCTION 08/12/2018 PEDRO HINSON DO B Ot 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 W/O PERFORATION OR AB 08/12/2018 PEDRO HINSON DO B Ot K64.8 OTHER HEMORRHOIDS 08/12/2018 ROSE HINSON DOIC B Ot Z68.3 5 BODY MASS INDEX (BMI) 35.0-35.9, ADULT 08/12/2018 PEDRO HINSON DO B Ot Z79.0 1 PHYSICIAN CHIEF OF PATHOLOGY (CURRENT) USE OF ANTICOAGULANT 08/12/2018 ROSE HINSON DOIC B Ot Z79.8 99 OTHER PHYSICIAN CHIEF OF PATHOLOGY (CURRENT) DRUG THERAPY 08/12/2018 PEDRO HINSON DO B Ot Z86.0 10 PERSONAL HISTORY OF COLONIC POLYPS 08/12/2018 PEDRO HINSON DO B Ot Z86.7 18 PERSONAL HISTORY OF OTHER VENOUS THROMBO 08/15/2018 DEANA ALARCON MD Ot D50. 0 IRON DEFICIENCY ANEMIA SECONDARY TO BLOO 08/15/2018 DEANA ALARCON MD, Ot D68. 51 ACTIVATED PROTEIN C RESISTANCE 08/15/2018 DEANA ALARCON MD Ot E66. 01 MORBID (SEVERE) OBESITY DUE TO EXCESS CA 08/15/2018 DEANA ALARCON MD Ot I82.503 CHRONIC EMBLSM AND THOMBOS UNSP DEEP VEI 08/15/2018 DEANA ALARCON MD Ot K29. 70 GASTRITIS, UNSPECIFIED, WITHOUT BLEEDING 08/15/2018 DEANA ALARCON MD, Ot Z68. 39 BODY MASS INDEX (BMI) 39.0-39.9, ADULT 08/15/2018 DEANA ALARCON MD, Ot Z79. 01 PHYSICIAN CHIEF OF PATHOLOGY (CURRENT) USE OF ANTICOAGULANT 08/15/2018 DEANA ALARCON MD, Ot Z79. 82 SHELTER (CURRENT) USE OF ASPIRIN 08/15/2018 DEANA ALARCON MD, Ot Z79.899 OTHER PHYSICIAN CHIEF OF PATHOLOGY (CURRENT) DRUG THERAPY 08/17/2018 SHANI HUTCHINSON MD, Ot D68.51 ACTIVATED PROTEIN C RESISTANCE 08/17/2018 SHANI HUTCHINSON MD, Ot E44 .0 MODERATE PROTEIN-CALORIE MALNUTRITION 08/17/2018 SHANI HUTCHINSON MD, Ot I82.503 CHRONIC EMBLSM AND THOMBOS UNSP DEEP VEI 08/17/2018 SHANI HUTCHINSON MD, Ot L97.212 NON-PRESSURE CHRONIC ULCER OF RIGHT CALF 08/17/2018 SHANI HUTCHINSON MD, Ot L97.222 NON-PRESSURE CHRONIC ULCER OF LEFT CALF 08/17/2018 SHANI HUTCHINSON MD, Ot L97.312 NON-PRS CHRONIC ULCER OF RIGHT ANKLE W F 08/17/2018 SHANI HUTCHINSON MD, Ot L97.522 NON-PRS CHRONIC ULCER OTH PRT LEFT FOOT 08/18/2018 DEANA ALARCON MD, Ot D50. 0 IRON DEFICIENCY ANEMIA SECONDARY TO BLOO 08/18/2018 DEANA ALARCON MD, Ot D68. 51 ACTIVATED PROTEIN C RESISTANCE 08/18/2018 DEANA ALARCON MD, Ot E66. 01 MORBID (SEVERE) OBESITY DUE TO EXCESS CA 08/18/2018 DEANA ALARCON MD, Ot I82.503 CHRONIC EMBLSM AND THOMBOS UNSP DEEP VEI 08/18/2018 DEANA ALARCON MD, Ot K29. 70 GASTRITIS, UNSPECIFIED, WITHOUT BLEEDING 08/18/2018 DEANA ALARCON MD, Ot Z68. 39 BODY MASS INDEX (BMI) 39.0-39.9, ADULT 08/18/2018 DEANA ALARCON MD, Ot Z79. 01 PHYSICIAN CHIEF OF PATHOLOGY (CURRENT) USE OF ANTICOAGULANT 08/18/2018 DEANA AALRCON MD, Ot Z79. 82 PHYSICIAN CHIEF OF PATHOLOGY (CURRENT) USE OF ASPIRIN 08/18/2018 DEANA ALARCON MD, Ot Z79.899 OTHER SHELTER (CURRENT) DRUG THERAPY 08/19/2018 SRAVAN POWERS PEDRO B Ot D64.9 ANEMIA, UNSPECIFIED 08/19/2018 SRAVAN POWERSROSEIC B Ot D68.2 HEREDITARY DEFICIENCY OF OTHER CLOTTING 08/19/2018 SRAVAN POWERS PEDRO B Ot E66.9 OBESITY, UNSPECIFIED 08/19/2018 SRAVAN POWERS PEDRO B Ot K21.9 GASTRO-ESOPHAGEAL REFLUX DISEASE WITHOUT 08/19/2018 BETHSTANLEY POWERSROSEIC B Ot K25.9 GASTRIC ULCER, UNSP ACUTE OR CHRONIC, 08/19/2018 SRAVAN POWERS PEDRO B Ot K29.5 0 UNSPECIFIED CHRONIC GASTRITIS WITHOUT BL 08/19/2018 BETHSTANLEY ROSE POWERSIC B Ot K44.9 DIAPHRAGMATIC HERNIA WITHOUT OBSTRUCTION 08/19/2018 SRVAAN POWERSPEDRO B Ot 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 W/O PERFORATION OR AB 08/19/2018 SRAVAN POWERSPEDRO B Ot K64.8 OTHER HEMORRHOIDS 08/19/2018 BETHSTANLEY POWERSROSEIC B Ot Z68.3 5 BODY MASS INDEX (BMI) 35.0-35.9, ADULT 08/19/2018 SRAVAN POWERS PEDRO B Ot Z79.0 1 SHELTER (CURRENT) USE OF ANTICOAGULANT 08/19/2018 BETHSTANLEY PEDRO POWERS B Ot Z79.8 99 OTHER SHELTER (CURRENT) DRUG THERAPY 08/19/2018 BETHSTANLEY ROSE POWERSIC B Ot Z86.0 10 PERSONAL HISTORY OF COLONIC POLYPS 08/19/2018 BETHSTANLEY ROSE POWERSIC B Ot Z86.7 18 PERSONAL HISTORY OF OTHER VENOUS THROMBO 08/19/2018 SHANI HUTCHINSON MD, Ot D68.51 ACTIVATED PROTEIN C RESISTANCE 08/19/2018 SHANI HUTCHINSON MD, Ot E44 .0 MODERATE PROTEIN-CALORIE MALNUTRITION 08/19/2018 SHANI HUTCHINSON MD, Ot I82.503 CHRONIC EMBLSM AND THOMBOS UNSP DEEP VEI 08/19/2018 SHANI HUTCHINSON MD, Ot I87.333 CHRONIC VENOUS HTN W ULCER AND INFLAM OF 08/19/2018 SHANI HUTCHINSON MD, Ot L97.212 NON-PRESSURE CHRONIC ULCER OF RIGHT CALF 08/19/2018 SHANI HUTCHINSON MD, Ot L97.222 NON-PRESSURE CHRONIC ULCER OF LEFT CALF 08/19/2018 SHANI HUTCHINSON MD, Ot L97.312 NON-PRS CHRONIC ULCER OF RIGHT ANKLE W F 08/19/2018 SHANI HUTCHINSON MD, Ot L97.522 NON-PRS CHRONIC ULCER OTH PRT LEFT FOOT 08/22/2018 DEANA ALARCON MD, Ot D50. 0 IRON DEFICIENCY ANEMIA SECONDARY TO BLOO 08/22/2018 DEANA ALARCON MD, Ot D68. 51 ACTIVATED PROTEIN C RESISTANCE 08/22/2018 DEANA ALARCON MD, Ot E66. 01 MORBID (SEVERE) OBESITY DUE TO EXCESS CA 08/22/2018 DEANA ALARCON MD, Ot I82.503 CHRONIC EMBLSM AND THOMBOS UNSP DEEP VEI 08/22/2018 DEANA ALARCON MD, Ot K29. 70 GASTRITIS, UNSPECIFIED, WITHOUT BLEEDING 08/22/2018 DEANA ALARCON MD, Ot Z68. 39 BODY MASS INDEX (BMI) 39.0-39.9, ADULT 08/22/2018 DEANA ALARCON MD, Ot Z79. 01 PHYSICIAN CHIEF OF PATHOLOGY (CURRENT) USE OF ANTICOAGULANT 08/22/2018 DEANA ALARCON MD, Ot Z79. 82 PHYSICIAN CHIEF OF PATHOLOGY (CURRENT) USE OF ASPIRIN 08/22/2018 DEANA LAARCON MD, Ot Z79.899 OTHER SHELTER (CURRENT) DRUG THERAPY 08/23/2018 PEDRO HINSON DO Ot Z01.8 18 ENCOUNTER FOR OTHER PREPROCEDURAL EXAMIN 08/24/2018 SHANI HUTCHINSON MD, Ot D68.51 ACTIVATED PROTEIN C RESISTANCE 08/24/2018 SHANI HUTCHINSON MD, Ot E44 .0 MODERATE PROTEIN-CALORIE MALNUTRITION 08/24/2018 SHANI HUTCHINSON MD, Ot I82.503 CHRONIC EMBLSM AND THOMBOS UNSP DEEP VEI 08/24/2018 SHANI HUTCHINSON MD, Ot I87.333 CHRONIC VENOUS HTN W ULCER AND INFLAM OF 08/24/2018 SHANI HUTCHINSON MD, Ot L97.212 NON-PRESSURE CHRONIC ULCER OF RIGHT CALF 08/24/2018 SHANI HUTCHINSON MD, Ot L97.222 NON-PRESSURE CHRONIC ULCER OF LEFT CALF 08/24/2018 SHANI HUTCHINSON MD, Ot L97.312 NON-PRS CHRONIC ULCER OF RIGHT ANKLE W F 08/24/2018 SHANI HUTCHINSON MD, Ot L97.522 NON-PRS CHRONIC ULCER OTH PRT LEFT FOOT 08/26/2018 SHANI HUTCHINSON MD, Ot D68.51 ACTIVATED PROTEIN C RESISTANCE 08/26/2018 SHANI HUTCHINSON MD, Ot E44 .0 MODERATE PROTEIN-CALORIE MALNUTRITION 08/26/2018 SHANI HUTCHINSON MD, Ot I82.503 CHRONIC EMBLSM AND THOMBOS UNSP DEEP VEI 08/26/2018 SHANI HUTCHINSON MD, Ot L97.212 NON-PRESSURE CHRONIC ULCER OF RIGHT CALF 08/26/2018 SHANI HUTCHINSON MD, Ot L97.222 NON-PRESSURE CHRONIC ULCER OF LEFT CALF 08/26/2018 SHANI HUTCHINSON MD, Ot L97.312 NON-PRS CHRONIC ULCER OF RIGHT ANKLE W F 08/26/2018 SHANI HUTCHINSON MD, Ot L97.522 NON-PRS CHRONIC ULCER OTH PRT LEFT FOOT 08/26/2018 PEDRO HINSON DO Ot K31.8 4 GASTROPARESIS 08/30/2018 PEDRO HINSON DO B Ot D64.9 ANEMIA, UNSPECIFIED 08/30/2018 PEDRO HINSON DO Ot D68.2 HEREDITARY DEFICIENCY OF OTHER CLOTTING 08/30/2018 PEDRO HINSON DO B Ot E66.0 1 MORBID (SEVERE) OBESITY DUE TO EXCESS CA 08/30/2018 PEDRO HINSON DO B Ot K21.9 GASTRO-ESOPHAGEAL REFLUX DISEASE WITHOUT 08/30/2018 ROSE HINSON DOIC B Ot K25.9 GASTRIC ULCER, UNSP ACUTE OR CHRONIC, 08/30/2018 PEDRO HINSON DO B Ot K29.5 0 UNSPECIFIED CHRONIC GASTRITIS WITHOUT BL 08/30/2018 PEDRO HINSON DO B Ot K31.8 4 GASTROPARESIS 08/30/2018 PEDRO HINSON DO B Ot K31.8 9 OTHER DISEASES OF STOMACH AND DUODENUM 08/30/2018 PEDRO HINSON DO B Ot 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 W/O PERFORATION OR AB 08/30/2018 PEDRO HINSON DO B Ot K62.1 RECTAL POLYP 08/30/2018 PEDRO HINSON DO B Ot K64.4 RESIDUAL HEMORRHOIDAL SKIN TAGS 08/30/2018 PEDRO HINSON DO B Ot K64.8 OTHER HEMORRHOIDS 08/30/2018 PEDRO HINSON DO Ot Z68.3 8 BODY MASS INDEX (BMI) 38.0-38.9, ADULT 08/30/2018 BETHSTANLEY PEDRO POWERS Ot Z79.0 1 SHELTER (CURRENT) USE OF ANTICOAGULANT 08/30/2018 PEDRO HINSON DO Ot Z79.8 99 OTHER SHELTER (CURRENT) DRUG THERAPY 08/30/2018 PEDRO HINSON DO Ot Z86.0 10 PERSONAL HISTORY OF COLONIC POLYPS 08/30/2018 PEDRO HINSON DO Ot Z86.7 18 PERSONAL HISTORY OF OTHER VENOUS THROMBO 08/30/2018 PEDRO HINSON DO Ot Z87.4 42 PERSONAL HISTORY OF URINARY CALCULI 08/30/2018 PEDRO HINSON DO Ot Z88.5 ALLERGY STATUS TO NARCOTIC AGENT STATUS 08/31/2018 SHANI HUTCHINSON MD, Ot D68.51 ACTIVATED PROTEIN C RESISTANCE 08/31/2018 SHANI HUTCHINSON MD, Ot E44 .0 MODERATE PROTEIN-CALORIE MALNUTRITION 08/31/2018 SHANI HUTCHINSON MD, Ot I82.503 CHRONIC EMBLSM AND THOMBOS UNSP DEEP VEI 08/31/2018 SHANI HUTCHINSON MD, Ot I87.333 CHRONIC VENOUS HTN W ULCER AND INFLAM OF 08/31/2018 SHANI HUTCHINSON MD Ot L97.212 NON-PRESSURE CHRONIC ULCER OF RIGHT CALF 08/31/2018 SHANI HUTCHINSON MD, Ot L97.222 NON-PRESSURE CHRONIC ULCER OF LEFT CALF 08/31/2018 SHANI HUTCHINSON MD Ot L97.312 NON-PRS CHRONIC ULCER OF RIGHT ANKLE W F 08/31/2018 SHANI HUTCHINSON MD, Ot L97.522 NON-PRS CHRONIC ULCER OTH PRT LEFT FOOT 09/03/2018 SHANI HUTCHINSON MD, Ot D68.51 ACTIVATED PROTEIN C RESISTANCE 09/03/2018 SHANI HUTCHINSON MD, Ot E44 .0 MODERATE PROTEIN-CALORIE MALNUTRITION 09/03/2018 SHANI HUTCHINSON MD, Ot I82.503 CHRONIC EMBLSM AND THOMBOS UNSP DEEP VEI 09/03/2018 SHANI HUTCHINSON MD, Ot I87.333 CHRONIC VENOUS HTN W ULCER AND INFLAM OF 09/03/2018 SHANI HUTCHINSON MD, Ot L97.212 NON-PRESSURE CHRONIC ULCER OF RIGHT CALF 09/03/2018 SHANI HUTCHINSON MD Ot L97.222 NON-PRESSURE CHRONIC ULCER OF LEFT CALF 09/03/2018 SHANI HUTCHINSON MD, Ot L97.312 NON-PRS CHRONIC ULCER OF RIGHT ANKLE W F 09/03/2018 SHANI HUTCHINSON MD, Ot L97.522 NON-PRS CHRONIC ULCER OTH PRT LEFT FOOT 09/03/2018 SHANI HUTCHINSON MD, Ot D68.51 ACTIVATED PROTEIN C RESISTANCE 09/03/2018 SHANI HUTCHINSON MD, Ot E44 .0 MODERATE PROTEIN-CALORIE MALNUTRITION 09/03/2018 SHANI HUTCHINSON MD, Ot I82.503 CHRONIC EMBLSM AND THOMBOS UNSP DEEP VEI 09/03/2018 SHANI HUTCHINSON MD, Ot I87.333 CHRONIC VENOUS HTN W ULCER AND INFLAM OF 09/03/2018 SHANI HUTCHINSON MD, Ot L97.212 NON-PRESSURE CHRONIC ULCER OF RIGHT CALF 09/03/2018 SHANI HUTCHINSON MD, Ot L97.222 NON-PRESSURE CHRONIC ULCER OF LEFT CALF 09/03/2018 SHANI HUTCHINSON MD, Ot L97.312 NON-PRS CHRONIC ULCER OF RIGHT ANKLE W F 09/03/2018 SHANI HUTCHINSON MD, Ot L97.522 NON-PRS CHRONIC ULCER OTH PRT LEFT FOOT 09/07/2018 SHANI HUTCHINSON MD, Ot D68.51 ACTIVATED PROTEIN C RESISTANCE 09/07/2018 SHANI HUTCHINSON MD, Ot E44 .0 MODERATE PROTEIN-CALORIE MALNUTRITION 09/07/2018 SHANI HUTCHINSON MD, Ot I82.503 CHRONIC EMBLSM AND THOMBOS UNSP DEEP VEI 09/07/2018 SHANI HUTCHINSON MD Ot I87.333 CHRONIC VENOUS HTN W ULCER AND INFLAM OF 09/07/2018 SHANI HUTCHINSON MD, Ot L97.212 NON-PRESSURE CHRONIC ULCER OF RIGHT CALF 09/07/2018 SHANI HUTCHINSON MD Ot L97.222 NON-PRESSURE CHRONIC ULCER OF LEFT CALF 09/07/2018 SHANI HUTCHINSON MD Ot L97.312 NON-PRS CHRONIC ULCER OF RIGHT ANKLE W F 09/07/2018 SHANI HUTCHINSON MD, Ot L97.522 NON-PRS CHRONIC ULCER OTH PRT LEFT FOOT 09/07/2018 PEDRO HINSON DO Ot K31.8 4 GASTROPARESIS 09/07/2018 SHANI HUTCHINSON MD Ot D68.51 ACTIVATED PROTEIN C RESISTANCE 09/07/2018 SHANI HUTCHINSON MD, Ot E44 .0 MODERATE PROTEIN-CALORIE MALNUTRITION 09/07/2018 SHANI HUTCHINSON MD, Ot I82.503 CHRONIC EMBLSM AND THOMBOS UNSP DEEP VEI 09/07/2018 SHANI HUTCHINSON MD, Ot I87.333 CHRONIC VENOUS HTN W ULCER AND INFLAM OF 09/07/2018 SHANI HUTCHINSON MD, Ot L97.212 NON-PRESSURE CHRONIC ULCER OF RIGHT CALF 09/07/2018 SHANI HUTCHINSON MD Ot L97.222 NON-PRESSURE CHRONIC ULCER OF LEFT CALF 09/07/2018 SHANI HUTCHINSON MD, Ot L97.312 NON-PRS CHRONIC ULCER OF RIGHT ANKLE W F 09/07/2018 SHANI HUTCHINSON MD, Ot L97.522 NON-PRS CHRONIC ULCER OTH PRT LEFT FOOT 09/10/2018 SHANI HUTCHINSON MD, Ot D68.51 ACTIVATED PROTEIN C RESISTANCE 09/10/2018 SHANI HUTCHINSON MD, Ot E44 .0 MODERATE PROTEIN-CALORIE MALNUTRITION 09/10/2018 SHANI HUTCHINSON MD, Ot I82.503 CHRONIC EMBLSM AND THOMBOS UNSP DEEP VEI 09/10/2018 SHANI HUTCHINSON MD, Ot I87.333 CHRONIC VENOUS HTN W ULCER AND INFLAM OF 09/10/2018 SHANI HUTCHINSON MD, Ot L97.212 NON-PRESSURE CHRONIC ULCER OF RIGHT CALF 09/10/2018 SHANI HUTCHINSON MD, Ot L97.222 NON-PRESSURE CHRONIC ULCER OF LEFT CALF 09/10/2018 SHANI HUTCHINSON MD, Ot L97.312 NON-PRS CHRONIC ULCER OF RIGHT ANKLE W F 09/10/2018 SHANI HUTCHINSON MD, Ot L97.522 NON-PRS CHRONIC ULCER OTH PRT LEFT FOOT 09/10/2018 SHANI HUTCHINSON MD, Ot D68.51 ACTIVATED PROTEIN C RESISTANCE 09/10/2018 SHANI HUTCHINSON MD Ot E44 .0 MODERATE PROTEIN-CALORIE MALNUTRITION 09/10/2018 SHANI HUTCHINSON MD, Ot I82.503 CHRONIC EMBLSM AND THOMBOS UNSP DEEP VEI 09/10/2018 SHANI HUTCHINSON MD, Ot I87.333 CHRONIC VENOUS HTN W ULCER AND INFLAM OF 09/10/2018 SHANI HUTCHINSON MD Ot L97.212 NON-PRESSURE CHRONIC ULCER OF RIGHT CALF 09/10/2018 SHANI HUTCHINSON MD, Ot L97.222 NON-PRESSURE CHRONIC ULCER OF LEFT CALF 09/10/2018 SHANI HUTCHINSON MD, Ot L97.312 NON-PRS CHRONIC ULCER OF RIGHT ANKLE W F 09/10/2018 SHANI HUTCHINSON MD, Ot L97.522 NON-PRS CHRONIC ULCER OTH PRT LEFT FOOT 09/15/2018 SHANI HUTCHINSON MD, Ot D64 .9 ANEMIA, UNSPECIFIED 09/15/2018 SHANI HUTCHINSON MD, Ot I73 .9 PERIPHERAL VASCULAR DISEASE, UNSPECIFIED 09/15/2018 SHANI HUTCHINSON MD, Ot I82.409 ACUTE EMBOLISM AND THOMBOS UNSP DEEP VN 09/15/2018 SHANI HUTCHINSON MD, Ot L97.229 NON-PRESSURE CHRONIC ULCER OF LEFT CALF 09/15/2018 SHANI HUTCHINSON MD, Ot M19.91 PRIMARY OSTEOARTHRITIS, UNSPECIFIED SITE 09/16/2018 SHANI HUTCHINSON MD, Ot D68.51 ACTIVATED PROTEIN C RESISTANCE 09/16/2018 SHANI HUTCHINSON MD, Ot E44 .0 MODERATE PROTEIN-CALORIE MALNUTRITION 09/16/2018 SHANI HUTCHINSON MD, Ot I82.503 CHRONIC EMBLSM AND THOMBOS UNSP DEEP VEI 09/16/2018 SHANI HUTCHINSON MD, Ot I87.333 CHRONIC VENOUS HTN W ULCER AND INFLAM OF 09/16/2018 SHANI HUTCHINSON MD Ot L97.212 NON-PRESSURE CHRONIC ULCER OF RIGHT CALF 09/16/2018 SHANI HUTCHINSON MD, Ot L97.222 NON-PRESSURE CHRONIC ULCER OF LEFT CALF 09/16/2018 SHANI HUTCHINSON MD, Ot L97.322 NON-PRESSURE CHRONIC ULCER OF LEFT ANKLE 09/16/2018 SHANI HUTCHINSON MD, Ot L97.522 NON-PRS CHRONIC ULCER OTH PRT LEFT FOOT 09/23/2018 SHANI HUTCHINSON MD, Ot L97.212 NON-PRESSURE CHRONIC ULCER OF RIGHT CALF 09/23/2018 SHANI HUTCHINSON MD Ot L97.222 NON-PRESSURE CHRONIC ULCER OF LEFT CALF 09/23/2018 SHANI HUTCHINSON MD, Ot L97.312 NON-PRS CHRONIC ULCER OF RIGHT ANKLE W F 09/23/2018 SHANI HUTCHINSON MD Ot Z86.79 PERSONAL HISTORY OF OTHER DISEASES OF TH 10/01/2018 SHANI HUTCHINSON MD, Ot D64 .9 ANEMIA, UNSPECIFIED 10/01/2018 SHANI HUTCHINSON MD, Ot I73 .9 PERIPHERAL VASCULAR DISEASE, UNSPECIFIED 10/01/2018 SHANI HUTCHINSON MD, Ot I82.409 ACUTE EMBOLISM AND THOMBOS UNSP DEEP VN 10/01/2018 HSANI HUTCHINSON MD, Ot M19.90 UNSPECIFIED OSTEOARTHRITIS, UNSPECIFIED 10/01/2018 SHNAI HUTCHINSON MD, Ot S81.801A UNSPECIFIED OPEN WOUND, RIGHT LOWER LEG, 10/01/2018 SHANI HUTCHINSON MD, Ot S81.802A UNSPECIFIED OPEN WOUND, LEFT LOWER LEG, 10/01/2018 SHANI HUTCHINSON MD, Ot S91.001A UNSPECIFIED OPEN WOUND, RIGHT ANKLE, INI 10/01/2018 SHANI HUTCHINSON MD, Ot S91.109A UNSP OPEN WOUND OF UNSP TOE(S) W/O DAMAG 10/06/2018 SHANI HUTCHINSON MD, Ot D64 .9 ANEMIA, UNSPECIFIED 10/06/2018 SHANI HUTCHINSON MD, Ot I73 .9 PERIPHERAL VASCULAR DISEASE, UNSPECIFIED 10/06/2018 SHANI HUTCHINSON MD, Ot I82.409 ACUTE EMBOLISM AND THOMBOS UNSP DEEP VN 10/06/2018 SHANI HUTCHINSON MD, Ot L97.229 NON-PRESSURE CHRONIC ULCER OF LEFT CALF 10/11/2018 Ot 285.9 ANEM IA NOS 10/11/2018 Ot V12.51 HX- VENOUS THROMBOSIS EMBOLISM 10/11/2018 KARIN TOLBERT MD Ot 338. 29 OTHER CHRONIC PAIN 10/11/2018 KARIN TOLBERT MD Ot 722. 52 LUMB/LUMBOSAC DISC DEGEN 10/11/2018 KARIN TOLBERT MD Ot 729. 2 NEURALGIA/NEURITIS NOS 10/11/2018 KARIN TOLBERT MD Ot 719. 47 JOINT PAIN-ANKLE 10/11/2018 MARY PERSAUD APRN Ot I87.2 VENOUS INSUFFICIENCY (CHRONIC) (PERIPHER 10/11/2018 MARY PERSAUD APRN Ot L97.212 NON-PRESSURE CHRONIC ULCER OF RIGHT CALF 10/11/2018 MARY PERSAUD APRN Ot L97.222 NON-PRESSURE CHRONIC ULCER OF LEFT CALF 10/11/2018 MARY PERSAUD APRN Ot L97.312 NON-PRS CHRONIC ULCER OF RIGHT ANKLE W F 10/11/2018 MARY PERSAUD APRN Ot L97.522 NON-PRS CHRONIC ULCER OTH PRT LEFT FOOT 10/11/2018 EVANGELINA MD, SHANI G Ot I87.333 CHRONIC VENOUS HTN W ULCER AND INFLAM OF 10/11/2018 SHANI HUTCHINSON MD Ot L97.212 NON-PRESSURE CHRONIC ULCER OF RIGHT CALF 10/11/2018 SHANI HUTCHINSON MD Ot L97.222 NON-PRESSURE CHRONIC ULCER OF LEFT CALF 10/11/2018 SHANI HUTCHINSON MD Ot L97.312 NON-PRS CHRONIC ULCER OF RIGHT ANKLE W F 10/11/2018 SHANI HUTCHINSON MD, Ot L97.522 NON-PRS CHRONIC ULCER OTH PRT LEFT FOOT 10/11/2018 SHANI HUTCHINSON MD Ot L97.222 NON-PRESSURE CHRONIC ULCER OF LEFT CALF 10/11/2018 SHANI HUTCHINSON MD, Ot L97.312 NON-PRS CHRONIC ULCER OF RIGHT ANKLE W F 10/11/2018 SHANI HUTCHINSON MD, Ot L97.522 NON-PRS CHRONIC ULCER OTH PRT LEFT FOOT 10/11/2018 SHANI HUTCHINSON MD Ot I87.333 CHRONIC VENOUS HTN W ULCER AND INFLAM OF 10/11/2018 SHANI HUTCHINSON MD Ot L97.222 NON-PRESSURE CHRONIC ULCER OF LEFT CALF 10/11/2018 MARY PERSAUD APRN Ot I87.333 CHRONIC VENOUS HTN W ULCER AND INFLAM OF 10/11/2018 MARY PERSAUD APRN Ot L97.212 NON-PRESSURE CHRONIC ULCER OF RIGHT CALF 10/11/2018 MARY PERSAUD APRN Ot L97.222 NON-PRESSURE CHRONIC ULCER OF LEFT CALF 10/11/2018 MARY PERSAUD APRN Ot L97.312 NON-PRS CHRONIC ULCER OF RIGHT ANKLE W F 10/11/2018 MARY PERSAUD APRN Ot L97.522 NON-PRS CHRONIC ULCER OTH PRT LEFT FOOT 10/11/2018 SHANI HUTCHINSON MD Ot D68.51 ACTIVATED PROTEIN C RESISTANCE 10/11/2018 SHANI HUTCHINSON MD Ot I87.333 CHRONIC VENOUS HTN W ULCER AND INFLAM OF 10/11/2018 SHANI HUTCHINSON MD Ot L97.212 NON-PRESSURE CHRONIC ULCER OF RIGHT CALF 10/11/2018 SHANI HUTCHINSON MD Ot L97.222 NON-PRESSURE CHRONIC ULCER OF LEFT CALF 10/11/2018 SHANI HUTCHINSON MD Ot L97.312 NON-PRS CHRONIC ULCER OF RIGHT ANKLE W F 10/11/2018 SHANI HUTCHINSON MD Ot L97.522 NON-PRS CHRONIC ULCER OTH PRT LEFT FOOT 10/11/2018 CORIMARY R [employer]OTIONS ASSISTANT SALES MARKETING Ot D68.51 ACTIVATED PROTEIN C RESISTANCE 10/11/2018 CORI MARY R PROMOTIONS ASSISTANT SALES MARKETING Ot I87.333 CHRONIC VENOUS HTN W ULCER AND INFLAM OF 10/11/2018 CORI MARY R PROMOTIONS ASSISTANT SALES MARKETING Ot L97.212 NON-PRESSURE CHRONIC ULCER OF RIGHT CALF 10/11/2018 CORI MARY R PROMOTIONS ASSISTANT SALES MARKETING Ot L97.222 NON-PRESSURE CHRONIC ULCER OF LEFT CALF 10/11/2018 CORI MARY R PROMOTIONS ASSISTANT SALES MARKETING Ot L97.312 NON-PRS CHRONIC ULCER OF RIGHT ANKLE W F 10/11/2018 CORI MARY R [employer]OMOTIONS ASSISTANT SALES MARKETING Ot L97.522 NON-PRS CHRONIC ULCER OTH PRT LEFT FOOT 10/11/2018 CORI MARY R [employer]OMOTIONS ASSISTANT SALES MARKETING Ot D68.51 ACTIVATED PROTEIN C RESISTANCE 10/11/2018 CORI MARY R PROMOTIONS ASSISTANT SALES MARKETING Ot I87.333 CHRONIC VENOUS HTN W ULCER AND INFLAM OF 10/11/2018 CORI MARY R [employer]OMOTIONS ASSISTANT SALES MARKETING Ot L97.212 NON-PRESSURE CHRONIC ULCER OF RIGHT CALF 10/11/2018 CORI MARY R [employer]OMOTIONS ASSISTANT SALES MARKETING Ot L97.222 NON-PRESSURE CHRONIC ULCER OF LEFT CALF 10/11/2018 CORI MARY R [employer]OMOTIONS ASSISTANT SALES MARKETING Ot L97.312 NON-PRS CHRONIC ULCER OF RIGHT ANKLE W F 10/11/2018 CORI MARY R [employer]OMOTIONS ASSISTANT SALES MARKETING Ot L97.522 NON-PRS CHRONIC ULCER OTH PRT LEFT FOOT 10/11/2018 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 D68.51 ACTIVATED PROTEIN C RESISTANCE 10/11/2018 CORI MARY R [employer]OMOTIONS ASSISTANT SALES MARKETING Ot I87.333 CHRONIC VENOUS HTN W ULCER AND INFLAM OF 10/11/2018 CORI MARY R [employer]OMOTIONS ASSISTANT SALES MARKETING Ot L97.212 NON-PRESSURE CHRONIC ULCER OF RIGHT CALF 10/11/2018 CORI MARY R PROMOTIONS ASSISTANT SALES MARKETING Ot L97.222 NON-PRESSURE CHRONIC ULCER OF LEFT CALF 10/11/2018 CORI MARY R [employer]OMOTIONS ASSISTANT SALES MARKETING Ot L97.312 NON-PRS CHRONIC ULCER OF RIGHT ANKLE W F 10/11/2018 CORI MARY R [employer]OMOTIONS ASSISTANT SALES MARKETING Ot L97.522 NON-PRS CHRONIC ULCER OTH PRT LEFT FOOT 10/11/2018 CORI MARY R [employer]OMOTIONS ASSISTANT SALES MARKETING Ot D68.51 ACTIVATED PROTEIN C RESISTANCE 10/11/2018 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 I87.333 CHRONIC VENOUS HTN W ULCER AND INFLAM OF 10/11/2018 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 L97.212 NON-PRESSURE CHRONIC ULCER OF RIGHT CALF 10/11/2018 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 L97.222 NON-PRESSURE CHRONIC ULCER OF LEFT CALF 10/11/2018 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 L97.312 NON-PRS CHRONIC ULCER OF RIGHT ANKLE W F 10/11/2018 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 L97.522 NON-PRS CHRONIC ULCER OTH PRT LEFT FOOT 10/11/2018 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 D68.51 ACTIVATED PROTEIN C RESISTANCE 10/11/2018 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 I87.333 CHRONIC VENOUS HTN W ULCER AND INFLAM OF 10/11/2018 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 L97.212 NON-PRESSURE CHRONIC ULCER OF RIGHT CALF 10/11/2018 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 L97.222 NON-PRESSURE CHRONIC ULCER OF LEFT CALF 10/11/2018 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 L97.312 NON-PRS CHRONIC ULCER OF RIGHT ANKLE W F 10/11/2018 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 L97.522 NON-PRS CHRONIC ULCER OTH PRT LEFT FOOT 10/11/2018 ZAIRE WESTFALL MD Ot D68.51 ACTIVATED PROTEIN C RESISTANCE 10/11/2018 ZAIRE WESTFALL MD Ot I87.333 CHRONIC VENOUS HTN W ULCER AND INFLAM OF 10/11/2018 ZAIRE WESTFALL MD Ot L97.212 NON- PRESSURE CHRONIC ULCER OF RIGHT CALF 10/11/2018 ZAIRE WESTFALL MD Ot L97.222 NON- PRESSURE CHRONIC ULCER OF LEFT CALF 10/11/2018 ZAIRE WESTFALL MD Ot L97.312 NON- PRS CHRONIC ULCER OF RIGHT ANKLE W F 10/11/2018 ZAIRE WESTFALL MD Ot L97.522 NON- PRS CHRONIC ULCER OTH PRT LEFT FOOT 10/11/2018 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 D50.9 IRON DEFICIENCY ANEMIA, UNSPECIFIED 10/11/2018 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 D68.51 ACTIVATED PROTEIN C RESISTANCE 10/11/2018 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 I82.503 CHRONIC EMBLSM AND THOMBOS UNSP DEEP VEI 10/11/2018 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 I87.333 CHRONIC VENOUS HTN W ULCER AND INFLAM OF 10/11/2018 MARY PERSAUD APRN Ot L97.212 NON-PRESSURE CHRONIC ULCER OF RIGHT CALF 10/11/2018 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 L97.222 NON-PRESSURE CHRONIC ULCER OF LEFT CALF 10/11/2018 MARY PERSAUD APRN Ot L97.312 NON-PRS CHRONIC ULCER OF RIGHT ANKLE W F 10/11/2018 MARY PERSAUD APRN Ot L97.522 NON-PRS CHRONIC ULCER OTH PRT LEFT FOOT 10/11/2018 ZAIRE WESTFALL MD Ot D50.9 IRON DEFICIENCY ANEMIA, UNSPECIFIED 10/11/2018 ZAIRE WESTFALL MD, Ot D68.51 ACTIVATED PROTEIN C RESISTANCE 10/11/2018 ZAIRE WESTFALL MD Ot I82.503 CHRONIC EMBLSM AND THOMBOS UNSP DEEP VEI 10/11/2018 ZAIRE WESTFALL MD Ot I87.333 CHRONIC VENOUS HTN W ULCER AND INFLAM OF 10/11/2018 ZAIRE WESTFALL MD Ot L97.212 NON- PRESSURE CHRONIC ULCER OF RIGHT CALF 10/11/2018 ZAIRE WESTFALL MD Ot L97.222 NON- PRESSURE CHRONIC ULCER OF LEFT CALF 10/11/2018 ZAIRE WESTFALL MD Ot L97.312 NON- PRS CHRONIC ULCER OF RIGHT ANKLE W F 10/11/2018 ZAIRE WESTFALL MD Ot L97.522 NON- PRS CHRONIC ULCER OTH PRT LEFT FOOT 10/11/2018 MARY PERSAUD APRN Ot D50.9 IRON DEFICIENCY ANEMIA, UNSPECIFIED 10/11/2018 MARY PERSAUD APRN Ot D68.51 ACTIVATED PROTEIN C RESISTANCE 10/11/2018 MARY PERSAUD APRN Ot I82.503 CHRONIC EMBLSM AND THOMBOS UNSP DEEP VEI 10/11/2018 MARY PERSAUD APRN Ot I87.333 CHRONIC VENOUS HTN W ULCER AND INFLAM OF 10/11/2018 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 L97.212 NON-PRESSURE CHRONIC ULCER OF RIGHT CALF 10/11/2018 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 L97.222 NON-PRESSURE CHRONIC ULCER OF LEFT CALF 10/11/2018 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 L97.312 NON-PRS CHRONIC ULCER OF RIGHT ANKLE W F 10/11/2018 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 L97.522 NON-PRS CHRONIC ULCER OTH PRT LEFT FOOT 10/11/2018 MAYR PERSAUD [employer] ASSIST[employer] MARKETING Ot D50.9 IRON DEFICIENCY ANEMIA, UNSPECIFIED 10/11/2018 MARY PERSAUD R [employer] ASSISTANT SAL[employer] MARKETING Ot D68.51 ACTIVATED PROTEIN C RESISTANCE 10/11/2018 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 I82.503 CHRONIC EMBLSM AND THOMBOS UNSP DEEP VEI 10/11/2018 CORI MARY R [employer]IONS ASSISTANT SALES MARKETING Ot I87.333 CHRONIC VENOUS HTN W ULCER AND INFLAM OF 10/11/2018 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 L97.212 NON-PRESSURE CHRONIC ULCER OF RIGHT CALF 10/11/2018 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 L97.222 NON-PRESSURE CHRONIC ULCER OF LEFT CALF 10/11/2018 CORI MARY R [employer] ASSISTANT SALES MARKETING Ot L97.312 NON-PRS CHRONIC ULCER OF RIGHT ANKLE W F 10/11/2018 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 L97.522 NON-PRS CHRONIC ULCER OTH PRT LEFT FOOT 10/11/2018 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 D50.9 IRON DEFICIENCY ANEMIA, UNSPECIFIED 10/11/2018 MARY PERSAUD R [employer] Ot D68.51 ACTIVATED PROTEIN C RESISTANCE 10/11/2018 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 I82.503 CHRONIC EMBLSM AND THOMBOS UNSP DEEP VEI 10/11/2018 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 I87.333 CHRONIC VENOUS HTN W ULCER AND INFLAM OF 10/11/2018 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 L97.212 NON-PRESSURE CHRONIC ULCER OF RIGHT CALF 10/11/2018 MARY PERSAUD R [employer] ASS[employer] MARKETING Ot L97.222 NON-PRESSURE CHRONIC ULCER OF LEFT CALF 10/11/2018 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 L97.312 NON-PRS CHRONIC ULCER OF RIGHT ANKLE W F 10/11/2018 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 L97.522 NON-PRS CHRONIC ULCER OTH PRT LEFT FOOT 10/11/2018 SHANI HUTCHINSON MD Ot D50 .9 IRON DEFICIENCY ANEMIA, UNSPECIFIED 10/11/2018 SHANI HUTCHINSON MD Ot D68.51 ACTIVATED PROTEIN C RESISTANCE 10/11/2018 SHANI HUTCHINSON MD Ot I82.503 CHRONIC EMBLSM AND THOMBOS UNSP DEEP VEI 10/11/2018 SHANI HUTCHINSON MD, Ot I87.333 CHRONIC VENOUS HTN W ULCER AND INFLAM OF 10/11/2018 SHANI HUTCHINSON MD Ot L97.212 NON-PRESSURE CHRONIC ULCER OF RIGHT CALF 10/11/2018 SHANI HUTCHINSON MD Ot L97.222 NON-PRESSURE CHRONIC ULCER OF LEFT CALF 10/11/2018 SHANI HUTCHINSON MD, Ot L97.312 NON-PRS CHRONIC ULCER OF RIGHT ANKLE W F 10/11/2018 SHANI HUTCHINSON MD Ot L97.522 NON-PRS CHRONIC ULCER OTH PRT LEFT FOOT 10/11/2018 SHANI HUTCHINSON MD, Ot D50 .9 IRON DEFICIENCY ANEMIA, UNSPECIFIED 10/11/2018 SHANI HUTCHINSON MD, Ot D68.51 ACTIVATED PROTEIN C RESISTANCE 10/11/2018 SHANI HUTCHINSON MD, Ot I82.503 CHRONIC EMBLSM AND THOMBOS UNSP DEEP VEI 10/11/2018 SHANI HUTCHINSON MD, Ot I87.333 CHRONIC VENOUS HTN W ULCER AND INFLAM OF 10/11/2018 SHANI HUTCHINSON MD Ot L97.212 NON-PRESSURE CHRONIC ULCER OF RIGHT CALF 10/11/2018 SHANI HUTCHINSON MD Ot L97.222 NON-PRESSURE CHRONIC ULCER OF LEFT CALF 10/11/2018 SHANI HUTCHINSON MD Ot L97.312 NON-PRS CHRONIC ULCER OF RIGHT ANKLE W F 10/11/2018 SHANI HUTCHINSON MD Ot L97.522 NON-PRS CHRONIC ULCER OTH PRT LEFT FOOT 10/11/2018 SHANI HUTCHINSON MD Ot L97.222 NON-PRESSURE CHRONIC ULCER OF LEFT CALF 10/11/2018 SHANI HUTCHINSON MD, Ot D50 .9 IRON DEFICIENCY ANEMIA, UNSPECIFIED 10/11/2018 SHANI HUTCHINSON MD, Ot D68.51 ACTIVATED PROTEIN C RESISTANCE 10/11/2018 SHANI HUTCHINSON MD, Ot I82.503 CHRONIC EMBLSM AND THOMBOS UNSP DEEP VEI 10/11/2018 SHANI HUTCHINSON MD Ot I87.333 CHRONIC VENOUS HTN W ULCER AND INFLAM OF 10/11/2018 SHANI HUTCHINSON MD Ot L97.212 NON-PRESSURE CHRONIC ULCER OF RIGHT CALF 10/11/2018 SHANI HUTCHINSON MD Ot L97.222 NON-PRESSURE CHRONIC ULCER OF LEFT CALF 10/11/2018 SHANI HUTCHINSON MD, Ot L97.312 NON-PRS CHRONIC ULCER OF RIGHT ANKLE W F 10/11/2018 SHANI HUTCHINSON MD, Ot L97.522 NON-PRS CHRONIC ULCER OTH PRT LEFT FOOT 10/11/2018 SHANI HUTCHINSON MD, Ot D50 .9 IRON DEFICIENCY ANEMIA, UNSPECIFIED 10/11/2018 SHANI HUTCHINSON MD, Ot D68.51 ACTIVATED PROTEIN C RESISTANCE 10/11/2018 SHANI HUTCHINSON MD, Ot E44 .0 MODERATE PROTEIN-CALORIE MALNUTRITION 10/11/2018 SHANI HUTCHINSON MD, Ot I82.503 CHRONIC EMBLSM AND THOMBOS UNSP DEEP VEI 10/11/2018 SHANI HUTCHINSON MD, Ot I87.333 CHRONIC VENOUS HTN W ULCER AND INFLAM OF 10/11/2018 SHANI HUTCHINSON MD, Ot L97.212 NON-PRESSURE CHRONIC ULCER OF RIGHT CALF 10/11/2018 SHANI HUTCHINSON MD, Ot L97.222 NON-PRESSURE CHRONIC ULCER OF LEFT CALF 10/11/2018 SHANI HUTCHINSON MD, Ot L97.312 NON-PRS CHRONIC ULCER OF RIGHT ANKLE W F 10/11/2018 SHANI HUTCHINSON MD, Ot L97.522 NON-PRS CHRONIC ULCER OTH PRT LEFT FOOT 10/11/2018 SHANI HUTCHINSON MD, Ot D50 .9 IRON DEFICIENCY ANEMIA, UNSPECIFIED 10/11/2018 SHANI HUTCHINSON MD, Ot D68.51 ACTIVATED PROTEIN C RESISTANCE 10/11/2018 SHANI HUTCHINSON MD, Ot E44 .0 MODERATE PROTEIN-CALORIE MALNUTRITION 10/11/2018 SHANI HUTCHINSON MD, Ot I82.503 CHRONIC EMBLSM AND THOMBOS UNSP DEEP VEI 10/11/2018 SHANI HUTCHINSON MD, Ot I87.333 CHRONIC VENOUS HTN W ULCER AND INFLAM OF 10/11/2018 SHANI HUTCHINSON MD Ot L97.212 NON-PRESSURE CHRONIC ULCER OF RIGHT CALF 10/11/2018 SHANI HUTCHINSON MD, Ot L97.222 NON-PRESSURE CHRONIC ULCER OF LEFT CALF 10/11/2018 SHANI HUTCHINSON MD, Ot L97.312 NON-PRS CHRONIC ULCER OF RIGHT ANKLE W F 10/11/2018 SHANI HUTCHINSON MD, Ot L97.522 NON-PRS CHRONIC ULCER OTH PRT LEFT FOOT 10/11/2018 SHANI HUTCHINSON MD, Ot D50 .9 IRON DEFICIENCY ANEMIA, UNSPECIFIED 10/11/2018 SHANI HUTCHINSON MD, Ot D68.51 ACTIVATED PROTEIN C RESISTANCE 10/11/2018 SHANI HUTCHINSON MD, Ot E44 .0 MODERATE PROTEIN-CALORIE MALNUTRITION 10/11/2018 SHANI HUTCHINSON MD, Ot I82.503 CHRONIC EMBLSM AND THOMBOS UNSP DEEP VEI 10/11/2018 SHANI HUTCHINSON MD, Ot I87.333 CHRONIC VENOUS HTN W ULCER AND INFLAM OF 10/11/2018 SHANI HUTCHINSON MD, Ot L97.212 NON-PRESSURE CHRONIC ULCER OF RIGHT CALF 10/11/2018 SHANI HUTCHINSON MD, Ot L97.222 NON-PRESSURE CHRONIC ULCER OF LEFT CALF 10/11/2018 SHANI HUTCHINSON MD, Ot L97.312 NON-PRS CHRONIC ULCER OF RIGHT ANKLE W F 10/11/2018 SHANI HUTCHINSON MD, Ot L97.522 NON-PRS CHRONIC ULCER OTH PRT LEFT FOOT 10/11/2018 SHANI HUTCHINSON MD, Ot E44 .0 MODERATE PROTEIN-CALORIE MALNUTRITION 10/11/2018 SHANI HUTCHINSON MD, Ot D50 .9 IRON DEFICIENCY ANEMIA, UNSPECIFIED 10/11/2018 SHANI HUTCHINSON MD, Ot D68.51 ACTIVATED PROTEIN C RESISTANCE 10/11/2018 SHANI HUTCHINSON MD, Ot E44 .0 MODERATE PROTEIN-CALORIE MALNUTRITION 10/11/2018 SHANI HUTCHINSON MD, Ot I82.503 CHRONIC EMBLSM AND THOMBOS UNSP DEEP VEI 10/11/2018 SHANI HUTCHINSON MD, Ot I87.333 CHRONIC VENOUS HTN W ULCER AND INFLAM OF 10/11/2018 SHANI HUTCHINSON MD Ot L97.212 NON-PRESSURE CHRONIC ULCER OF RIGHT CALF 10/11/2018 SHANI HUTCHINSON MD, Ot L97.222 NON-PRESSURE CHRONIC ULCER OF LEFT CALF 10/11/2018 SHANI HUTCHINSON MD, Ot L97.312 NON-PRS CHRONIC ULCER OF RIGHT ANKLE W F 10/11/2018 SHANI HUTCHINSON MD, Ot L97.522 NON-PRS CHRONIC ULCER OTH PRT LEFT FOOT 10/11/2018 SHANI HUTCHINSON MD, Ot D50 .9 IRON DEFICIENCY ANEMIA, UNSPECIFIED 10/11/2018 SHANI HUTCHINSON MD, Ot D68.51 ACTIVATED PROTEIN C RESISTANCE 10/11/2018 SHANI HUTCHINSON MD, Ot E44 .0 MODERATE PROTEIN-CALORIE MALNUTRITION 10/11/2018 SHANI HUTCHINSON MD, Ot I82.503 CHRONIC EMBLSM AND THOMBOS UNSP DEEP VEI 10/11/2018 SHANI HUTCHINSON MD, Ot I87.333 CHRONIC VENOUS HTN W ULCER AND INFLAM OF 10/11/2018 SHANI HUTCHINSON MD, Ot L97.212 NON-PRESSURE CHRONIC ULCER OF RIGHT CALF 10/11/2018 SHANI HUTCHINSON MD, Ot L97.222 NON-PRESSURE CHRONIC ULCER OF LEFT CALF 10/11/2018 SHANI HUTCHINSON MD, Ot L97.312 NON-PRS CHRONIC ULCER OF RIGHT ANKLE W F 10/11/2018 SHANI HUTCHINSON MD, Ot L97.522 NON-PRS CHRONIC ULCER OTH PRT LEFT FOOT 10/11/2018 SHANI HUTCHINSON MD, Ot D50 .9 IRON DEFICIENCY ANEMIA, UNSPECIFIED 10/11/2018 SHANI HUTCHINSON MD, Ot D68.51 ACTIVATED PROTEIN C RESISTANCE 10/11/2018 SHANI HUTCHINSON MD, Ot E44 .0 MODERATE PROTEIN-CALORIE MALNUTRITION 10/11/2018 SHANI HUTCHINSON MD, Ot I87.333 CHRONIC VENOUS HTN W ULCER AND INFLAM OF 10/11/2018 SHANI HUTCHINSON MD, Ot L97.212 NON-PRESSURE CHRONIC ULCER OF RIGHT CALF 10/11/2018 SHANI HUTCHINSON MD, Ot L97.222 NON-PRESSURE CHRONIC ULCER OF LEFT CALF 10/11/2018 SHANI HUTCHINSON MD, Ot L97.312 NON-PRS CHRONIC ULCER OF RIGHT ANKLE W F 10/11/2018 SHANI HUTCHINSON MD, Ot L97.522 NON-PRS CHRONIC ULCER OTH PRT LEFT FOOT 10/11/2018 SHANI HUTCHINSON MD Ot Z86.718 PERSONAL HISTORY OF OTHER VENOUS THROMBO 10/11/2018 SHANI HUTCHINSON MD, Ot D50 .9 IRON DEFICIENCY ANEMIA, UNSPECIFIED 10/11/2018 SHANI HUTCHINSON MD, Ot D68.51 ACTIVATED PROTEIN C RESISTANCE 10/11/2018 SHANI HUTCHINSON MD, Ot E44 .0 MODERATE PROTEIN-CALORIE MALNUTRITION 10/11/2018 SHANI HUTCHINSON MD Ot I87.333 CHRONIC VENOUS HTN W ULCER AND INFLAM OF 10/11/2018 SHANI HUTCHINSON MD, Ot L97.212 NON-PRESSURE CHRONIC ULCER OF RIGHT CALF 10/11/2018 SHANI HUTCHINSON MD, Ot L97.222 NON-PRESSURE CHRONIC ULCER OF LEFT CALF 10/11/2018 SHANI HUTCHINSON MD, Ot L97.312 NON-PRS CHRONIC ULCER OF RIGHT ANKLE W F 10/11/2018 SHANI HUTCHINSON MD, Ot L97.522 NON-PRS CHRONIC ULCER OTH PRT LEFT FOOT 10/11/2018 SHANI HUTCHINSON MD, Ot Z86.718 PERSONAL HISTORY OF OTHER VENOUS THROMBO 10/11/2018 SHANI HUTCHINSON MD, Ot D50 .9 IRON DEFICIENCY ANEMIA, UNSPECIFIED 10/11/2018 SHANI HUTCHINSON MD, Ot D68.51 ACTIVATED PROTEIN C RESISTANCE 10/11/2018 SHANI HUTCHINSON MD, Ot E44 .0 MODERATE PROTEIN-CALORIE MALNUTRITION 10/11/2018 SHANI HUTCHINSON MD, Ot I82.503 CHRONIC EMBLSM AND THOMBOS UNSP DEEP VEI 10/11/2018 SHANI HUTCHINSON MD, Ot I87.333 CHRONIC VENOUS HTN W ULCER AND INFLAM OF 10/11/2018 SHANI HUTCHINSON MD, Ot L97.212 NON-PRESSURE CHRONIC ULCER OF RIGHT CALF 10/11/2018 SHANI HUTCHINSON MD, Ot L97.222 NON-PRESSURE CHRONIC ULCER OF LEFT CALF 10/11/2018 SHANI HUTHCINSON MD, Ot L97.312 NON-PRS CHRONIC ULCER OF RIGHT ANKLE W F 10/11/2018 SHANI HUTCHINSON MD, Ot L97.522 NON-PRS CHRONIC ULCER OTH PRT LEFT FOOT 10/11/2018 SHANI HUTCHINSON MD, Ot D50 .9 IRON DEFICIENCY ANEMIA, UNSPECIFIED 10/11/2018 SHANI HUTCHINSON MD, Ot D68.51 ACTIVATED PROTEIN C RESISTANCE 10/11/2018 SHANI HUTCHINSON MD, Ot E44 .0 MODERATE PROTEIN-CALORIE MALNUTRITION 10/11/2018 SHANI HUTCHINSON MD, Ot I82.503 CHRONIC EMBLSM AND THOMBOS UNSP DEEP VEI 10/11/2018 SHANI HUTCHINSON MD, Ot I87.333 CHRONIC VENOUS HTN W ULCER AND INFLAM OF 10/11/2018 SHANI HUTCHINSON MD, Ot L97.212 NON-PRESSURE CHRONIC ULCER OF RIGHT CALF 10/11/2018 SHANI HUTCHINSON MD, Ot L97.222 NON-PRESSURE CHRONIC ULCER OF LEFT CALF 10/11/2018 SHANI HUTCHINSON MD, Ot L97.312 NON-PRS CHRONIC ULCER OF RIGHT ANKLE W F 10/11/2018 SHANI HUTCHINSON MD, Ot L97.522 NON-PRS CHRONIC ULCER OTH PRT LEFT FOOT 10/11/2018 SHANI HUTCHINSON MD, Ot D50 .9 IRON DEFICIENCY ANEMIA, UNSPECIFIED 10/11/2018 SHANI HUTCHINSON MD, Ot D68.51 ACTIVATED PROTEIN C RESISTANCE 10/11/2018 SHANI HUTCHINSON MD, Ot E44 .0 MODERATE PROTEIN-CALORIE MALNUTRITION 10/11/2018 SHANI HUTCHINSON MD, Ot I87.333 CHRONIC VENOUS HTN W ULCER AND INFLAM OF 10/11/2018 SHANI HUTCHINSON MD, Ot L97.212 NON-PRESSURE CHRONIC ULCER OF RIGHT CALF 10/11/2018 SHANI HUTCHINSON MD, Ot L97.222 NON-PRESSURE CHRONIC ULCER OF LEFT CALF 10/11/2018 SHANI HUTCHINSON MD, Ot L97.312 NON-PRS CHRONIC ULCER OF RIGHT ANKLE W F 10/11/2018 SHANI HUTCHINSON MD, Ot L97.522 NON-PRS CHRONIC ULCER OTH PRT LEFT FOOT 10/11/2018 SHANI HUTCHINSON MD, Ot Z86.718 PERSONAL HISTORY OF OTHER VENOUS THROMBO 10/11/2018 SHANI HUTCHINSON MD, Ot D68.51 ACTIVATED PROTEIN C RESISTANCE 10/11/2018 SHANI HUTCHINSON MD, Ot E44 .0 MODERATE PROTEIN-CALORIE MALNUTRITION 10/11/2018 SHANI HUTCHINSON MD, Ot I87.333 CHRONIC VENOUS HTN W ULCER AND INFLAM OF 10/11/2018 SHANI HUTCHINSON MD, Ot L97.212 NON-PRESSURE CHRONIC ULCER OF RIGHT CALF 10/11/2018 SHANI HUTCHINSON MD, Ot L97.222 NON-PRESSURE CHRONIC ULCER OF LEFT CALF 10/11/2018 SHANI HUTCHINSON MD, Ot L97.312 NON-PRS CHRONIC ULCER OF RIGHT ANKLE W F 10/11/2018 SHANI HUTCHINSON MD, Ot L97.522 NON-PRS CHRONIC ULCER OTH PRT LEFT FOOT 10/11/2018 SHANI HUTCHINSON MD, Ot Z86.718 PERSONAL HISTORY OF OTHER VENOUS THROMBO 10/11/2018 SHANI HUTCHINSON MD, Ot D68.51 ACTIVATED PROTEIN C RESISTANCE 10/11/2018 SHANI HUTCHINSON MD Ot E44 .0 MODERATE PROTEIN-CALORIE MALNUTRITION 10/11/2018 SHANI HUTCHINSON MD, Ot I87.333 CHRONIC VENOUS HTN W ULCER AND INFLAM OF 10/11/2018 SHANI HUTCHINSON MD, Ot L97.212 NON-PRESSURE CHRONIC ULCER OF RIGHT CALF 10/11/2018 SHANI HUTCHINSON MD, Ot L97.222 NON-PRESSURE CHRONIC ULCER OF LEFT CALF 10/11/2018 SHANI HUTCHINSON MD, Ot L97.312 NON-PRS CHRONIC ULCER OF RIGHT ANKLE W F 10/11/2018 SHANI HUTCHINSON MD, Ot L97.522 NON-PRS CHRONIC ULCER OTH PRT LEFT FOOT 10/11/2018 SHANI HUTCHINSON MD, Ot Z86.718 PERSONAL HISTORY OF OTHER VENOUS THROMBO 10/11/2018 SHANI HUTCHINSON MD, Ot D68.51 ACTIVATED PROTEIN C RESISTANCE 10/11/2018 SHANI HUTCHINSON MD, Ot E44 .0 MODERATE PROTEIN-CALORIE MALNUTRITION 10/11/2018 SHANI HUTCHINSON MD, Ot I87.333 CHRONIC VENOUS HTN W ULCER AND INFLAM OF 10/11/2018 SHANI HUTCHINSON MD, Ot L97.212 NON-PRESSURE CHRONIC ULCER OF RIGHT CALF 10/11/2018 SHANI HUTCHINSON MD, Ot L97.222 NON-PRESSURE CHRONIC ULCER OF LEFT CALF 10/11/2018 SHANI HUTCHINSON MD, Ot L97.312 NON-PRS CHRONIC ULCER OF RIGHT ANKLE W F 10/11/2018 SHANI HUTCHINSON MD, Ot L97.522 NON-PRS CHRONIC ULCER OTH PRT LEFT FOOT 10/11/2018 SHANI HUTCHINSON MD, Ot Z86.718 PERSONAL HISTORY OF OTHER VENOUS THROMBO 10/11/2018 SHANI HUTCHINSON MD, Ot D68.51 ACTIVATED PROTEIN C RESISTANCE 10/11/2018 SHANI HUTCHINSON MD, Ot E44 .0 MODERATE PROTEIN-CALORIE MALNUTRITION 10/11/2018 SHANI HUTCHINSON MD, Ot I87.333 CHRONIC VENOUS HTN W ULCER AND INFLAM OF 10/11/2018 SHANI HUTCHINSON MD Ot L97.212 NON-PRESSURE CHRONIC ULCER OF RIGHT CALF 10/11/2018 SHANI HUTCHINSON MD, Ot L97.222 NON-PRESSURE CHRONIC ULCER OF LEFT CALF 10/11/2018 SHANI HUTCHINSON MD, Ot L97.312 NON-PRS CHRONIC ULCER OF RIGHT ANKLE W F 10/11/2018 SHANI HUTCHINSON MD, Ot L97.522 NON-PRS CHRONIC ULCER OTH PRT LEFT FOOT 10/11/2018 SHANI HUTCHINSON MD, Ot Z86.718 PERSONAL HISTORY OF OTHER VENOUS THROMBO 10/11/2018 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 D68.51 ACTIVATED PROTEIN C RESISTANCE 10/11/2018 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 E44.0 MODERATE PROTEIN-CALORIE MALNUTRITION 10/11/2018 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 I87.333 CHRONIC VENOUS HTN W ULCER AND INFLAM OF 10/11/2018 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 L97.212 NON-PRESSURE CHRONIC ULCER OF RIGHT CALF 10/11/2018 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 L97.222 NON-PRESSURE CHRONIC ULCER OF LEFT CALF 10/11/2018 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 L97.312 NON-PRS CHRONIC ULCER OF RIGHT ANKLE W F 10/11/2018 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 L97.522 NON-PRS CHRONIC ULCER OTH PRT LEFT FOOT 10/11/2018 MARY PERSAUD APRN Ot Z86.718 PERSONAL HISTORY OF OTHER VENOUS THROMBO 10/11/2018 SHANI HUTCHINSON MD, Ot D68.51 ACTIVATED PROTEIN C RESISTANCE 10/11/2018 SHANI HUTCHINSON MD Ot E44 .0 MODERATE PROTEIN-CALORIE MALNUTRITION 10/11/2018 SHANI HUTCHINSON MD Ot I87.333 CHRONIC VENOUS HTN W ULCER AND INFLAM OF 10/11/2018 SHANI HUTCHINSON MD Ot L97.212 NON-PRESSURE CHRONIC ULCER OF RIGHT CALF 10/11/2018 SHANI HUTCHINSON MD Ot L97.222 NON-PRESSURE CHRONIC ULCER OF LEFT CALF 10/11/2018 SHANI HUTCHINSON MD Ot L97.312 NON-PRS CHRONIC ULCER OF RIGHT ANKLE W F 10/11/2018 SHANI HUTCHINSON MD Ot L97.522 NON-PRS CHRONIC ULCER OTH PRT LEFT FOOT 10/11/2018 SHANI HUTCHINSON MD Ot Z86.718 PERSONAL HISTORY OF OTHER VENOUS THROMBO 10/11/2018 MARY PERSAUD APRN Ot D68.51 ACTIVATED PROTEIN C RESISTANCE 10/11/2018 MARY PERSAUD APRN Ot E44.0 MODERATE PROTEIN-CALORIE MALNUTRITION 10/11/2018 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 I87.333 CHRONIC VENOUS HTN W ULCER AND INFLAM OF 10/11/2018 MARY PERSAUD APRN Ot L97.212 NON-PRESSURE CHRONIC ULCER OF RIGHT CALF 10/11/2018 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 L97.222 NON-PRESSURE CHRONIC ULCER OF LEFT CALF 10/11/2018 MARY PERSAUD APRN Ot L97.312 NON-PRS CHRONIC ULCER OF RIGHT ANKLE W F 10/11/2018 MARY PERSAUD APRN Ot L97.522 NON-PRS CHRONIC ULCER OTH PRT LEFT FOOT 10/11/2018 MARY PERSAUD APRN Ot Z86.718 PERSONAL HISTORY OF OTHER VENOUS THROMBO 10/11/2018 SHANI HUTCHINSON MD, Ot D68.51 ACTIVATED PROTEIN C RESISTANCE 10/11/2018 SHANI HUTCHINSON MD Ot E44 .0 MODERATE PROTEIN-CALORIE MALNUTRITION 10/11/2018 SHANI HUTCHINSON MD Ot I87.333 CHRONIC VENOUS HTN W ULCER AND INFLAM OF 10/11/2018 SHANI HUTCHINSON MD Ot L97.212 NON-PRESSURE CHRONIC ULCER OF RIGHT CALF 10/11/2018 SHANI HUTCHINSON MD Ot L97.222 NON-PRESSURE CHRONIC ULCER OF LEFT CALF 10/11/2018 SHANI HUTCHINSON MD, Ot L97.312 NON-PRS CHRONIC ULCER OF RIGHT ANKLE W F 10/11/2018 SHANI HUTCHINSON MD Ot L97.522 NON-PRS CHRONIC ULCER OTH PRT LEFT FOOT 10/11/2018 SHANI HUTCHINSON MD, Ot Z86.718 PERSONAL HISTORY OF OTHER VENOUS THROMBO 10/11/2018 SHANI HUTCHINSON MD, Ot D68.51 ACTIVATED PROTEIN C RESISTANCE 10/11/2018 SHANI HUTCHINSON MD Ot E44 .0 MODERATE PROTEIN-CALORIE MALNUTRITION 10/11/2018 SHANI HUTCHINSON MD, Ot I87.333 CHRONIC VENOUS HTN W ULCER AND INFLAM OF 10/11/2018 SHANI HUTCHINSON MD Ot L97.212 NON-PRESSURE CHRONIC ULCER OF RIGHT CALF 10/11/2018 SHANI HUTCHINSON MD Ot L97.222 NON-PRESSURE CHRONIC ULCER OF LEFT CALF 10/11/2018 SHANI HUTCHINSON MD, Ot L97.312 NON-PRS CHRONIC ULCER OF RIGHT ANKLE W F 10/11/2018 SHANI HUTCHINSON MD Ot L97.522 NON-PRS CHRONIC ULCER OTH PRT LEFT FOOT 10/11/2018 SHANI HUTCHINSON MD Ot Z86.718 PERSONAL HISTORY OF OTHER VENOUS THROMBO 10/11/2018 SHANI HUTCHINSON MD, Ot D68.51 ACTIVATED PROTEIN C RESISTANCE 10/11/2018 SHANI HUTCHINSON MD, Ot E44 .0 MODERATE PROTEIN-CALORIE MALNUTRITION 10/11/2018 SHANI HUTCHINSON MD, Ot I82.503 CHRONIC EMBLSM AND THOMBOS UNSP DEEP VEI 10/11/2018 SHANI HUTCHINSON MD, Ot I87.333 CHRONIC VENOUS HTN W ULCER AND INFLAM OF 10/11/2018 SHANI HUTCHINSON MD, Ot L97.212 NON-PRESSURE CHRONIC ULCER OF RIGHT CALF 10/11/2018 SHANI HUTCHINSON MD, Ot L97.222 NON-PRESSURE CHRONIC ULCER OF LEFT CALF 10/11/2018 SHANI HUTCHINSON MD, Ot L97.312 NON-PRS CHRONIC ULCER OF RIGHT ANKLE W F 10/11/2018 SHANI HUTCHINSON MD, Ot L97.522 NON-PRS CHRONIC ULCER OTH PRT LEFT FOOT 10/11/2018 SHANI HUTCHINSON MD, Ot D68.51 ACTIVATED PROTEIN C RESISTANCE 10/11/2018 SHANI HUTCHINSON MD, Ot E44 .0 MODERATE PROTEIN-CALORIE MALNUTRITION 10/11/2018 SHANI HUTCHINSON MD, Ot I87.333 CHRONIC VENOUS HTN W ULCER AND INFLAM OF 10/11/2018 SHANI HUTCHINSON MD, Ot L97.212 NON-PRESSURE CHRONIC ULCER OF RIGHT CALF 10/11/2018 SHANI HUTCHINSON MD, Ot L97.222 NON-PRESSURE CHRONIC ULCER OF LEFT CALF 10/11/2018 SHANI HUTCHINSON MD, Ot L97.312 NON-PRS CHRONIC ULCER OF RIGHT ANKLE W F 10/11/2018 SHANI HUTCHINSON MD, Ot L97.522 NON-PRS CHRONIC ULCER OTH PRT LEFT FOOT 10/11/2018 SHANI HUTCHINSON MD, Ot Z86.718 PERSONAL HISTORY OF OTHER VENOUS THROMBO 10/11/2018 SHANI HUTCHINSON MD, Ot D68.51 ACTIVATED PROTEIN C RESISTANCE 10/11/2018 SHANI HUTCHINSON MD, Ot E44 .0 MODERATE PROTEIN-CALORIE MALNUTRITION 10/11/2018 SHANI HUTCHINSON MD, Ot I87.333 CHRONIC VENOUS HTN W ULCER AND INFLAM OF 10/11/2018 SHANI HUTCHINSON MD, Ot L97.212 NON-PRESSURE CHRONIC ULCER OF RIGHT CALF 10/11/2018 SHANI HUTCHINSON MD, Ot L97.222 NON-PRESSURE CHRONIC ULCER OF LEFT CALF 10/11/2018 SHANI HUTCHINSON MD, Ot L97.312 NON-PRS CHRONIC ULCER OF RIGHT ANKLE W F 10/11/2018 SHANI HUTCHINSON MD Ot L97.522 NON-PRS CHRONIC ULCER OTH PRT LEFT FOOT 10/11/2018 SHANI HUTCHINSON MD, Ot Z86.718 PERSONAL HISTORY OF OTHER VENOUS THROMBO 10/11/2018 SHANI HUTCHINSON MD, Ot D68.51 ACTIVATED PROTEIN C RESISTANCE 10/11/2018 SHANI HUTCHINSON MD Ot E44 .0 MODERATE PROTEIN-CALORIE MALNUTRITION 10/11/2018 SHANI HUTCHINSON MD Ot I87.333 CHRONIC VENOUS HTN W ULCER AND INFLAM OF 10/11/2018 SHANI HUTCHINSON MD Ot L97.212 NON-PRESSURE CHRONIC ULCER OF RIGHT CALF 10/11/2018 SHANI HUTCHINSON MD Ot L97.222 NON-PRESSURE CHRONIC ULCER OF LEFT CALF 10/11/2018 SHANI HUTCHINSON MD Ot L97.312 NON-PRS CHRONIC ULCER OF RIGHT ANKLE W F 10/11/2018 SHANI HUTCHINSON MD, Ot L97.522 NON-PRS CHRONIC ULCER OTH PRT LEFT FOOT 10/11/2018 SHANI HUTCHINSON MD Ot R19 .5 OTHER FECAL ABNORMALITIES 10/11/2018 SHANI HUTCHINSON MD, Ot Z86.718 PERSONAL HISTORY OF OTHER VENOUS THROMBO 10/11/2018 MARY PERSAUD APRN Ot D68.51 ACTIVATED PROTEIN C RESISTANCE 10/11/2018 MARY PERSAUD APRN Ot E44.0 MODERATE PROTEIN-CALORIE MALNUTRITION 10/11/2018 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 I82.503 CHRONIC EMBLSM AND THOMBOS UNSP DEEP VEI 10/11/2018 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 I87.333 CHRONIC VENOUS HTN W ULCER AND INFLAM OF 10/11/2018 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 L97.212 NON-PRESSURE CHRONIC ULCER OF RIGHT CALF 10/11/2018 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 L97.222 NON-PRESSURE CHRONIC ULCER OF LEFT CALF 10/11/2018 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 L97.312 NON-PRS CHRONIC ULCER OF RIGHT ANKLE W F 10/11/2018 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 L97.522 NON-PRS CHRONIC ULCER OTH PRT LEFT FOOT 10/11/2018 MARY PERSAUD APRN Ot R19.5 OTHER FECAL ABNORMALITIES 10/11/2018 SHANI HUTCHINSON MD Ot D68.51 ACTIVATED PROTEIN C RESISTANCE 10/11/2018 SHANI HUTCHINSON MD, Ot E44 .0 MODERATE PROTEIN-CALORIE MALNUTRITION 10/11/2018 SHANI HUTCHINSON MD, Ot I87.333 CHRONIC VENOUS HTN W ULCER AND INFLAM OF 10/11/2018 SHANI HUTCHINSON MD, Ot L97.212 NON-PRESSURE CHRONIC ULCER OF RIGHT CALF 10/11/2018 SHANI HUTCHINSON MD, Ot L97.222 NON-PRESSURE CHRONIC ULCER OF LEFT CALF 10/11/2018 SHANI HUTCHINSON MD, Ot L97.312 NON-PRS CHRONIC ULCER OF RIGHT ANKLE W F 10/11/2018 SHANI HUTCHINSON MD, Ot L97.522 NON-PRS CHRONIC ULCER OTH PRT LEFT FOOT 10/11/2018 SHANI HUTCHINSON MD, Ot Z86.718 PERSONAL HISTORY OF OTHER VENOUS THROMBO 10/11/2018 SHANI HUTCHINSON MD, Ot D68.51 ACTIVATED PROTEIN C RESISTANCE 10/11/2018 SHANI HUTCHINSON MD, Ot E44 .0 MODERATE PROTEIN-CALORIE MALNUTRITION 10/11/2018 SHANI HUTCHINSON MD, Ot I87.333 CHRONIC VENOUS HTN W ULCER AND INFLAM OF 10/11/2018 SHANI HUTCHINSON MD, Ot L97.212 NON-PRESSURE CHRONIC ULCER OF RIGHT CALF 10/11/2018 SHANI HUTCHINSON MD, Ot L97.222 NON-PRESSURE CHRONIC ULCER OF LEFT CALF 10/11/2018 SHANI HUTCHINSON MD, Ot L97.312 NON-PRS CHRONIC ULCER OF RIGHT ANKLE W F 10/11/2018 SHANI HUTCHINSON MD, Ot L97.522 NON-PRS CHRONIC ULCER OTH PRT LEFT FOOT 10/11/2018 SHANI HUTCHINSON MD, Ot Z86.718 PERSONAL HISTORY OF OTHER VENOUS THROMBO 10/11/2018 SHANI HUTCHINSON MD, Ot D68.51 ACTIVATED PROTEIN C RESISTANCE 10/11/2018 SHANI HUTCHINSON MD, Ot E44 .0 MODERATE PROTEIN-CALORIE MALNUTRITION 10/11/2018 SHANI HUTCHINSON MD, Ot I87.333 CHRONIC VENOUS HTN W ULCER AND INFLAM OF 10/11/2018 SHANI HUTCHINSON MD, Ot L97.212 NON-PRESSURE CHRONIC ULCER OF RIGHT CALF 10/11/2018 SHANI HUTCHINSON MD, Ot L97.222 NON-PRESSURE CHRONIC ULCER OF LEFT CALF 10/11/2018 SHANI HUTCHINSON MD, Ot L97.312 NON-PRS CHRONIC ULCER OF RIGHT ANKLE W F 10/11/2018 SHANI HUTCHINSON MD, Ot L97.522 NON-PRS CHRONIC ULCER OTH PRT LEFT FOOT 10/11/2018 SHANI HUTCHINSON MD, Ot Z86.718 PERSONAL HISTORY OF OTHER VENOUS THROMBO 10/11/2018 SHANI HUTCHINSON MD Ot E44 .0 MODERATE PROTEIN-CALORIE MALNUTRITION 10/11/2018 SHANI HUTCHINSON MD, Ot D68.51 ACTIVATED PROTEIN C RESISTANCE 10/11/2018 SHANI HUTCHINSON MD, Ot E44 .0 MODERATE PROTEIN-CALORIE MALNUTRITION 10/11/2018 SHANI HUTCHINSON MD Ot I82.503 CHRONIC EMBLSM AND THOMBOS UNSP DEEP VEI 10/11/2018 SHANI HUTCHINSON MD, Ot I87.333 CHRONIC VENOUS HTN W ULCER AND INFLAM OF 10/11/2018 SHANI HUTCHINSON MD Ot L97.212 NON-PRESSURE CHRONIC ULCER OF RIGHT CALF 10/11/2018 SHANI HUTCHINSON MD, Ot L97.222 NON-PRESSURE CHRONIC ULCER OF LEFT CALF 10/11/2018 SHANI HUTCHINSON MD, Ot L97.312 NON-PRS CHRONIC ULCER OF RIGHT ANKLE W F 10/11/2018 SHANI HUTCHINSON MD Ot L97.522 NON-PRS CHRONIC ULCER OTH PRT LEFT FOOT 10/11/2018 SHANI HUTCHINSON MD, Ot D68.51 ACTIVATED PROTEIN C RESISTANCE 10/11/2018 SHANI HUTCHINSON MD, Ot E44 .0 MODERATE PROTEIN-CALORIE MALNUTRITION 10/11/2018 SHANI HUTCHINSON MD, Ot I82.503 CHRONIC EMBLSM AND THOMBOS UNSP DEEP VEI 10/11/2018 SHANI HUTCHINSON MD, Ot I87.333 CHRONIC VENOUS HTN W ULCER AND INFLAM OF 10/11/2018 SHANI HUTCHINSON MD Ot L97.212 NON-PRESSURE CHRONIC ULCER OF RIGHT CALF 10/11/2018 SHANI HUTCHINSON MD Ot L97.222 NON-PRESSURE CHRONIC ULCER OF LEFT CALF 10/11/2018 SHANI HUTCHINSON MD, Ot L97.312 NON-PRS CHRONIC ULCER OF RIGHT ANKLE W F 10/11/2018 SHANI HUTCHINSON MD, Ot L97.522 NON-PRS CHRONIC ULCER OTH PRT LEFT FOOT 10/11/2018 SHANI HUTCHINSON MD, Ot D68.51 ACTIVATED PROTEIN C RESISTANCE 10/11/2018 SHANI HUTCHINSON MD, Ot E44 .0 MODERATE PROTEIN-CALORIE MALNUTRITION 10/11/2018 SHANI HUTCHINSON MD, Ot I82.503 CHRONIC EMBLSM AND THOMBOS UNSP DEEP VEI 10/11/2018 SHANI HUTCHINSON MD, Ot L97.212 NON-PRESSURE CHRONIC ULCER OF RIGHT CALF 10/11/2018 SHANI HUTCHINSON MD, Ot L97.222 NON-PRESSURE CHRONIC ULCER OF LEFT CALF 10/11/2018 SHANI HUTCHINSON MD, Ot L97.312 NON-PRS CHRONIC ULCER OF RIGHT ANKLE W F 10/11/2018 SHANI HUTCHINSON MD, Ot L97.522 NON-PRS CHRONIC ULCER OTH PRT LEFT FOOT 10/11/2018 SHANI HUTCHINSON MD, Ot D68.51 ACTIVATED PROTEIN C RESISTANCE 10/11/2018 SHANI HUTCHINSON MD, Ot E44 .0 MODERATE PROTEIN-CALORIE MALNUTRITION 10/11/2018 SHANI HUTCHINSON MD, Ot I82.503 CHRONIC EMBLSM AND THOMBOS UNSP DEEP VEI 10/11/2018 SHANI HUTCHINSON MD, Ot I87.333 CHRONIC VENOUS HTN W ULCER AND INFLAM OF 10/11/2018 SHANI HUTCHINSON MD Ot L97.212 NON-PRESSURE CHRONIC ULCER OF RIGHT CALF 10/11/2018 SHANI HUTCHINSON MD, Ot L97.222 NON-PRESSURE CHRONIC ULCER OF LEFT CALF 10/11/2018 SHANI HUTCHINSON MD, Ot L97.312 NON-PRS CHRONIC ULCER OF RIGHT ANKLE W F 10/11/2018 SHANI HUTCHINSON MD, Ot L97.522 NON-PRS CHRONIC ULCER OTH PRT LEFT FOOT 10/11/2018 DEANA ALARCON MD Ot D50. 0 IRON DEFICIENCY ANEMIA SECONDARY TO BLOO 10/11/2018 DEANA ALARCON MD, Ot D68. 51 ACTIVATED PROTEIN C RESISTANCE 10/11/2018 DEANA ALARCON MD Ot E66. 01 MORBID (SEVERE) OBESITY DUE TO EXCESS CA 10/11/2018 DEANA ALARCON MD, Ot I82.503 CHRONIC EMBLSM AND THOMBOS UNSP DEEP VEI 10/11/2018 DEANA ALARCON MD Ot K29. 70 GASTRITIS, UNSPECIFIED, WITHOUT BLEEDING 10/11/2018 DEANA ALARCON MD Ot Z68. 39 BODY MASS INDEX (BMI) 39.0-39.9, ADULT 10/11/2018 DEANA ALARCON MD, Ot Z79. 01 SHELTER (CURRENT) USE OF ANTICOAGULANT 10/11/2018 DEANA ALARCON MD, Ot Z79. 82 SHELTER (CURRENT) USE OF ASPIRIN 10/11/2018 DEANA ALARCON MD, Ot Z79.899 OTHER SHELTER (CURRENT) DRUG THERAPY 10/11/2018 PEDRO HINSON DO Ot K31.8 4 GASTROPARESIS 10/11/2018 SHANI HUTCHINSON MD, Ot D68.51 ACTIVATED PROTEIN C RESISTANCE 10/11/2018 SHANI HUTCHINSON MD, Ot E44 .0 MODERATE PROTEIN-CALORIE MALNUTRITION 10/11/2018 SHANI HUTCHINSON MD, Ot I82.503 CHRONIC EMBLSM AND THOMBOS UNSP DEEP VEI 10/11/2018 SHANI HUTCHINSON MD, Ot I87.333 CHRONIC VENOUS HTN W ULCER AND INFLAM OF 10/11/2018 SHANI HUTCHINSON MD, Ot L97.212 NON-PRESSURE CHRONIC ULCER OF RIGHT CALF 10/11/2018 SHANI HUTCHINSON MD, Ot L97.222 NON-PRESSURE CHRONIC ULCER OF LEFT CALF 10/11/2018 SHANI HUTCHINSON MD Ot L97.312 NON-PRS CHRONIC ULCER OF RIGHT ANKLE W F 10/11/2018 SHANI HUTCHINSON MD Ot L97.522 NON-PRS CHRONIC ULCER OTH PRT LEFT FOOT 10/11/2018 SHANI HUTCHINSON MD, Ot D68.51 ACTIVATED PROTEIN C RESISTANCE 10/11/2018 SHANI HUTCHINSON MD, Ot E44 .0 MODERATE PROTEIN-CALORIE MALNUTRITION 10/11/2018 SHANI HUTCHINSON MD, Ot I82.503 CHRONIC EMBLSM AND THOMBOS UNSP DEEP VEI 10/11/2018 SHANI HUTCHINSON MD, Ot I87.333 CHRONIC VENOUS HTN W ULCER AND INFLAM OF 10/11/2018 SHANI HUTCHINSON MD Ot L97.212 NON-PRESSURE CHRONIC ULCER OF RIGHT CALF 10/11/2018 SHANI HUTCHINSON MD Ot L97.222 NON-PRESSURE CHRONIC ULCER OF LEFT CALF 10/11/2018 SHANI HUTCHINSON MD Ot L97.312 NON-PRS CHRONIC ULCER OF RIGHT ANKLE W F 10/11/2018 SHANI HUTCHINSON MD Ot L97.522 NON-PRS CHRONIC ULCER OTH PRT LEFT FOOT 10/11/2018 SHANI HUTCHINSON MD, Ot D68.51 ACTIVATED PROTEIN C RESISTANCE 10/11/2018 SHANI HUTCHINSON MD, Ot E44 .0 MODERATE PROTEIN-CALORIE MALNUTRITION 10/11/2018 SHANI HUTCHINSON MD, Ot I82.503 CHRONIC EMBLSM AND THOMBOS UNSP DEEP VEI 10/11/2018 SHANI HUTCHINSON MD Ot I87.333 CHRONIC VENOUS HTN W ULCER AND INFLAM OF 10/11/2018 SHANI HUTCHINSON MD, Ot L97.212 NON-PRESSURE CHRONIC ULCER OF RIGHT CALF 10/11/2018 SHANI HUTCHINSON MD Ot L97.222 NON-PRESSURE CHRONIC ULCER OF LEFT CALF 10/11/2018 SHANI HUTCHINSON MD, Ot L97.312 NON-PRS CHRONIC ULCER OF RIGHT ANKLE W F 10/11/2018 SHANI HUTCHINSON MD, Ot L97.522 NON-PRS CHRONIC ULCER OTH PRT LEFT FOOT 10/11/2018 SHANI HUTCHINSON MD, Ot D68.51 ACTIVATED PROTEIN C RESISTANCE 10/11/2018 SHANI HUTCHINSON MD, Ot E44 .0 MODERATE PROTEIN-CALORIE MALNUTRITION 10/11/2018 SHANI HUTCHINSON MD, Ot I82.503 CHRONIC EMBLSM AND THOMBOS UNSP DEEP VEI 10/11/2018 SHANI HUTCHINSON MD, Ot I87.333 CHRONIC VENOUS HTN W ULCER AND INFLAM OF 10/11/2018 SHANI HUTCHINSON MD, Ot L97.212 NON-PRESSURE CHRONIC ULCER OF RIGHT CALF 10/11/2018 SHANI HUTCHINSON MD Ot L97.222 NON-PRESSURE CHRONIC ULCER OF LEFT CALF 10/11/2018 SHANI HUTCHINSON MD, Ot L97.312 NON-PRS CHRONIC ULCER OF RIGHT ANKLE W F 10/11/2018 SHANI HUTCHINSON MD, Ot L97.522 NON-PRS CHRONIC ULCER OTH PRT LEFT FOOT 10/11/2018 SHANI HUTCHINSON MD, Ot D68.51 ACTIVATED PROTEIN C RESISTANCE 10/11/2018 SHANI HUTCHINSON MD, Ot E44 .0 MODERATE PROTEIN-CALORIE MALNUTRITION 10/11/2018 SHANI HUTCHINSON MD, Ot I82.503 CHRONIC EMBLSM AND THOMBOS UNSP DEEP VEI 10/11/2018 SHANI HUTCHINSON MD Ot I87.333 CHRONIC VENOUS HTN W ULCER AND INFLAM OF 10/11/2018 SHANI HUTCHINSON MD, Ot L97.212 NON-PRESSURE CHRONIC ULCER OF RIGHT CALF 10/11/2018 SHANI HUTCHINSON MD, Ot L97.222 NON-PRESSURE CHRONIC ULCER OF LEFT CALF 10/11/2018 SHANI HUTCHINSON MD, Ot L97.312 NON-PRS CHRONIC ULCER OF RIGHT ANKLE W F 10/11/2018 SHANI HUTCHINSON MD, Ot L97.522 NON-PRS CHRONIC ULCER OTH PRT LEFT FOOT 10/11/2018 SHANI HUTCHINSON MD Ot I87.333 CHRONIC VENOUS HTN W ULCER AND INFLAM OF 10/11/2018 SHANI HUTCHINSON MD, Ot L97.222 NON-PRESSURE CHRONIC ULCER OF LEFT CALF 10/11/2018 SHANI HUTCHINSON MD, Ot D64 .9 ANEMIA, UNSPECIFIED 10/11/2018 SHANI HUTCHINSON MD, Ot I73 .9 PERIPHERAL VASCULAR DISEASE, UNSPECIFIED 10/11/2018 SHANI HUTCHINSON MD, Ot I82.409 ACUTE EMBOLISM AND THOMBOS UNSP DEEP VN 10/11/2018 SHANI HUTCHINSON MD, Ot L97.229 NON-PRESSURE CHRONIC ULCER OF LEFT CALF 10/11/2018 SHANI HUTCHINSON MD, Ot D68.51 ACTIVATED PROTEIN C RESISTANCE 10/11/2018 SHANI HUTCHINSON MD, Ot E44 .0 MODERATE PROTEIN-CALORIE MALNUTRITION 10/11/2018 SHANI HUTCHINSON MD, Ot I82.503 CHRONIC EMBLSM AND THOMBOS UNSP DEEP VEI 10/11/2018 SHANI HUTCHINSON MD, Ot I87.333 CHRONIC VENOUS HTN W ULCER AND INFLAM OF 10/11/2018 SHANI HUTCHINSON MD Ot L97.212 NON-PRESSURE CHRONIC ULCER OF RIGHT CALF 10/11/2018 SHANI HUTCHINSON MD Ot L97.222 NON-PRESSURE CHRONIC ULCER OF LEFT CALF 10/11/2018 SHANI HUTCHINSON MD, Ot L97.322 NON-PRESSURE CHRONIC ULCER OF LEFT ANKLE 10/11/2018 SHANI HUTCHINSON MD, Ot L97.522 NON-PRS CHRONIC ULCER OTH PRT LEFT FOOT 10/11/2018 SHANI HUTCHINSON MD, Ot L97.212 NON-PRESSURE CHRONIC ULCER OF RIGHT CALF 10/11/2018 SHANI HUTCHINSON MD, Ot L97.222 NON-PRESSURE CHRONIC ULCER OF LEFT CALF 10/11/2018 SHANI HUTCHINSON MD, Ot L97.312 NON-PRS CHRONIC ULCER OF RIGHT ANKLE W F 10/11/2018 SHANI HUTCHINSON MD Ot Z86.79 PERSONAL HISTORY OF OTHER DISEASES OF TH 10/11/2018 SHANI HUTCHINSON MD, Ot D64 .9 ANEMIA, UNSPECIFIED 10/11/2018 SHANI HUTCHINSON MD, Ot I73 .9 PERIPHERAL VASCULAR DISEASE, UNSPECIFIED 10/11/2018 SHANI HUTCHINSON MD, Ot I82.409 ACUTE EMBOLISM AND THOMBOS UNSP DEEP VN 10/11/2018 SHANI HUTCHINSON MD, Ot M19.90 UNSPECIFIED OSTEOARTHRITIS, UNSPECIFIED 10/11/2018 SHANI HUTCHINSON MD, Ot S81.801A UNSPECIFIED OPEN WOUND, RIGHT LOWER LEG, 10/11/2018 SHANI HUTCHINSON MD, Ot S81.802A UNSPECIFIED OPEN WOUND, LEFT LOWER LEG, 10/11/2018 SHANI HUTCHINSON MD, Ot S91.001A UNSPECIFIED OPEN WOUND, RIGHT ANKLE, INI 10/11/2018 SHANI HUTCHINSON MD, Ot S91.109A UNSP OPEN WOUND OF UNSP TOE(S) W/O DAMAG 10/12/2018 SHANI HUTCHINSON MD, Ot D68.51 ACTIVATED PROTEIN C RESISTANCE 10/12/2018 SHANI HUTCHINSON MD, Ot I82.503 CHRONIC EMBLSM AND THOMBOS UNSP DEEP VEI 10/12/2018 SHANI HUTCHINSON MD, Ot I87.333 CHRONIC VENOUS HTN W ULCER AND INFLAM OF 10/12/2018 SHANI HUTCHINSON MD Ot I96 GANGRENE, NOT ELSEWHERE CLASSIFIED 10/12/2018 SHANI HUTCHINSON MD Ot L97.212 NON-PRESSURE CHRONIC ULCER OF RIGHT CALF 10/12/2018 SHANI HUTCHINSON MD Ot L97.222 NON-PRESSURE CHRONIC ULCER OF LEFT CALF 10/12/2018 SHANI HUTCHINSON MD Ot L97.312 NON-PRS CHRONIC ULCER OF RIGHT ANKLE W F 10/12/2018 SHANI HUTCHINSON MD, Ot L97.522 NON-PRS CHRONIC ULCER OTH PRT LEFT FOOT 10/13/2018 SHANI HUTCHINSON MD, Ot D68.51 ACTIVATED PROTEIN C RESISTANCE 10/13/2018 SHANI HUTCHINSON MD, Ot I82.503 CHRONIC EMBLSM AND THOMBOS UNSP DEEP VEI 10/13/2018 SHANI HUTCHINSON MD, Ot I87.333 CHRONIC VENOUS HTN W ULCER AND INFLAM OF 10/13/2018 SHANI HUTCHINSON MD Ot I89 .0 LYMPHEDEMA, NOT ELSEWHERE CLASSIFIED 10/13/2018 SHANI HUTCHINSON MD, Ot I96 GANGRENE, NOT ELSEWHERE CLASSIFIED 10/13/2018 SHANI HUTCHINSON MD, Ot L97.212 NON-PRESSURE CHRONIC ULCER OF RIGHT CALF 10/13/2018 SHANI HUTCHINSON MD, Ot L97.222 NON-PRESSURE CHRONIC ULCER OF LEFT CALF 10/13/2018 SHANI HUTCHINSON MD, Ot L97.312 NON-PRS CHRONIC ULCER OF RIGHT ANKLE W F 10/13/2018 SHANI HUTCHINSON MD, Ot L97.522 NON-PRS CHRONIC ULCER OTH PRT LEFT FOOT 10/19/2018 SHANI HUTCHINSON MD, Ot D64 .9 ANEMIA, UNSPECIFIED 10/19/2018 SHANI HUTCHINSON MD, Ot I73 .9 PERIPHERAL VASCULAR DISEASE, UNSPECIFIED 10/19/2018 SHANI HUTCHINSON MD, Ot I82.409 ACUTE EMBOLISM AND THOMBOS UNSP DEEP VN 10/19/2018 SHANI HUTCHINSON MD, Ot L97.222 NON-PRESSURE CHRONIC ULCER OF LEFT CALF 10/19/2018 SHANI HUTCHINSON MD Ot M19.90 UNSPECIFIED OSTEOARTHRITIS, UNSPECIFIED 10/22/2018 SHANI HUTCHINSON MD, Ot D64 .9 ANEMIA, UNSPECIFIED 10/22/2018 SHANI HUTCHINSON MD, Ot I73 .9 PERIPHERAL VASCULAR DISEASE, UNSPECIFIED 10/22/2018 SHANI HUTCHINSON MD, Ot I82.503 CHRONIC EMBLSM AND THOMBOS UNSP DEEP VEI 10/22/2018 SHANI HUTHCINSON MD Ot S81.801A UNSPECIFIED OPEN WOUND, RIGHT LOWER LEG, 10/22/2018 SHANI HUTCHINSON MD Ot S81.802A UNSPECIFIED OPEN WOUND, LEFT LOWER LEG, 10/22/2018 SHANI HUTCHINSON MD Ot S91.001A UNSPECIFIED OPEN WOUND, RIGHT ANKLE, INI 10/22/2018 SHANI HUTCHINSON MD Ot S91.105A UNSP OPN WND LEFT LESSER TOE(S) W/O STEPHANE 10/25/2018 SHANI HUTCHINSON MD, Ot D68.51 ACTIVATED PROTEIN C RESISTANCE 10/25/2018 SHANI HUTCHINSON MD, Ot I82.503 CHRONIC EMBLSM AND THOMBOS UNSP DEEP VEI 10/25/2018 SHANI HUTCHINSON MD Ot I87.333 CHRONIC VENOUS HTN W ULCER AND INFLAM OF 10/25/2018 SHANI HUTCHINSON MD Ot I96 GANGRENE, NOT ELSEWHERE CLASSIFIED 10/25/2018 SHANI HUTCHINSON MD Ot L97.212 NON-PRESSURE CHRONIC ULCER OF RIGHT CALF 10/25/2018 SHANI HUTCHINSON MD Ot L97.222 NON-PRESSURE CHRONIC ULCER OF LEFT CALF 10/25/2018 SHANI HUTCHINSON MD Ot L97.312 NON-PRS CHRONIC ULCER OF RIGHT ANKLE W F 10/25/2018 SHANI HUTCHINSON MD Ot L97.522 NON-PRS CHRONIC ULCER OTH PRT LEFT FOOT 10/25/2018 SHANI HUTCHINSON MD Ot D68.51 ACTIVATED PROTEIN C RESISTANCE 10/25/2018 SHANI HUTCHINSON MD, Ot I82.503 CHRONIC EMBLSM AND THOMBOS UNSP DEEP VEI 10/25/2018 SHANI HUTCHINSON MD Ot I87.333 CHRONIC VENOUS HTN W ULCER AND INFLAM OF 10/25/2018 SHANI HUTCHINSON MD, Ot I96 GANGRENE, NOT ELSEWHERE CLASSIFIED 10/25/2018 SHANI HUTCHINSON MD Ot L97.212 NON-PRESSURE CHRONIC ULCER OF RIGHT CALF 10/25/2018 SHANI HUTCHINSON MD Ot L97.222 NON-PRESSURE CHRONIC ULCER OF LEFT CALF 10/25/2018 SHANI HUTCHINSON MD Ot L97.312 NON-PRS CHRONIC ULCER OF RIGHT ANKLE W F 10/25/2018 SHANI HUTCHINSON MD Ot L97.522 NON-PRS CHRONIC ULCER OTH PRT LEFT FOOT 10/26/2018 SHANI HUTCHINSON MD, Ot D68.51 ACTIVATED PROTEIN C RESISTANCE 10/26/2018 SHANI HUTCHINSON MD, Ot I82.503 CHRONIC EMBLSM AND THOMBOS UNSP DEEP VEI 10/26/2018 SHANI HUTCHINSON MD Ot I87.333 CHRONIC VENOUS HTN W ULCER AND INFLAM OF 10/26/2018 SHANI HUTCHINSON MD Ot I89 .0 LYMPHEDEMA, NOT ELSEWHERE CLASSIFIED 10/26/2018 SHANI HUTCHINSON MD, Ot I96 GANGRENE, NOT ELSEWHERE CLASSIFIED 10/26/2018 SHANI HUTCHINSON MD Ot L97.212 NON-PRESSURE CHRONIC ULCER OF RIGHT CALF 10/26/2018 SHANI HUTCHINSON MD Ot L97.222 NON-PRESSURE CHRONIC ULCER OF LEFT CALF 10/26/2018 SHANI HUTCHINSON MD Ot L97.312 NON-PRS CHRONIC ULCER OF RIGHT ANKLE W F 10/26/2018 SHANI HUTCHINSON MD Ot L97.522 NON-PRS CHRONIC ULCER OTH PRT LEFT FOOT 10/27/2018 SHANI HUTCHINSON MD, Ot D68.51 ACTIVATED PROTEIN C RESISTANCE 10/27/2018 SHANI HUTCHINSON MD Ot I82.503 CHRONIC EMBLSM AND THOMBOS UNSP DEEP VEI 10/27/2018 SHANI HUTCHINSON MD Ot I87.333 CHRONIC VENOUS HTN W ULCER AND INFLAM OF 10/27/2018 SHANI HUTCHINSON MD Ot I89 .0 LYMPHEDEMA, NOT ELSEWHERE CLASSIFIED 10/27/2018 SHANI HUTCHINSON MD Ot I96 GANGRENE, NOT ELSEWHERE CLASSIFIED 10/27/2018 SHANI HUTCHINSON MD Ot L97.212 NON-PRESSURE CHRONIC ULCER OF RIGHT CALF 10/27/2018 SHANI HUTCHINSON MD Ot L97.222 NON-PRESSURE CHRONIC ULCER OF LEFT CALF 10/27/2018 SHANI HUTCHINSON MD Ot L97.312 NON-PRS CHRONIC ULCER OF RIGHT ANKLE W F 10/27/2018 SHANI HUTCHINSON MD Ot L97.522 NON-PRS CHRONIC ULCER OTH PRT LEFT FOOT 10/28/2018 SHANI HUTCHINSON MD, Ot D68.51 ACTIVATED PROTEIN C RESISTANCE 10/28/2018 SHANI HUTCHINSON MD Ot I82.503 CHRONIC EMBLSM AND THOMBOS UNSP DEEP VEI 10/28/2018 SHANI HUTCHINSON MD Ot I87.333 CHRONIC VENOUS HTN W ULCER AND INFLAM OF 10/28/2018 SHANI HUTCHINSON MD Ot I89 .0 LYMPHEDEMA, NOT ELSEWHERE CLASSIFIED 10/28/2018 SHANI HUTCHINSON MD Ot I96 GANGRENE, NOT ELSEWHERE CLASSIFIED 10/28/2018 SHANI HUTCHINSON MD Ot L97.212 NON-PRESSURE CHRONIC ULCER OF RIGHT CALF 10/28/2018 SHANI HUTCHINSON MD Ot L97.222 NON-PRESSURE CHRONIC ULCER OF LEFT CALF 10/28/2018 SHANI HUTCHINSON MD Ot L97.312 NON-PRS CHRONIC ULCER OF RIGHT ANKLE W F 10/28/2018 SHANI HUTCHINSON MD Ot L97.522 NON-PRS CHRONIC ULCER OTH PRT LEFT FOOT 10/28/2018 MARY PERSAUD APRN Ot L97.218 NON-PRESSURE CHRONIC ULCER OF RIGHT CALF 10/28/2018 SHANI HUTCHINSON MD Ot D68.51 ACTIVATED PROTEIN C RESISTANCE 10/28/2018 SHANI HUTCHINSON MD, Ot I82.503 CHRONIC EMBLSM AND THOMBOS UNSP DEEP VEI 10/28/2018 SHANI HUTCHINSON MD Ot I87.323 CHRONIC VENOUS HTN W INFLAMMATION OF LONG 10/28/2018 SHANI HUTCHINSON MD Ot I89 .0 LYMPHEDEMA, NOT ELSEWHERE CLASSIFIED 10/28/2018 SHANI HUTCHINSON MD, Ot I96 GANGRENE, NOT ELSEWHERE CLASSIFIED 10/28/2018 SHANI HUTCHINSON MD, Ot L97.212 NON-PRESSURE CHRONIC ULCER OF RIGHT CALF 10/28/2018 SHANI HUTCHINSON MD Ot L97.222 NON-PRESSURE CHRONIC ULCER OF LEFT CALF 10/28/2018 SHANI HUTCHINSON MD, Ot L97.312 NON-PRS CHRONIC ULCER OF RIGHT ANKLE W F 10/28/2018 SHANI HUTCHINSON MD, Ot L97.522 NON-PRS CHRONIC ULCER OTH PRT LEFT FOOT 11/01/2018 Ot 285.9 ANEM IA NOS 11/01/2018 Ot V12.51 HX- VENOUS THROMBOSIS EMBOLISM 11/01/2018 KARIN TOLBERT MD R Ot 338. 29 OTHER CHRONIC PAIN 11/01/2018 KARIN TOLBERT MD Ot 722. 52 LUMB/LUMBOSAC DISC DEGEN 11/01/2018 KARIN TOLBERT MD Ot 729. 2 NEURALGIA/NEURITIS NOS 11/01/2018 KARIN TOLBERT MD Ot 719. 47 JOINT PAIN-ANKLE 11/01/2018 MARY PERSAUD APRN Ot I87.2 VENOUS INSUFFICIENCY (CHRONIC) (PERIPHER 11/01/2018 MARY PERSAUD APRN Ot L97.212 NON-PRESSURE CHRONIC ULCER OF RIGHT CALF 11/01/2018 MARY PERSAUD APRN Ot L97.222 NON-PRESSURE CHRONIC ULCER OF LEFT CALF 11/01/2018 MARY PERSAUD APRN Ot L97.312 NON-PRS CHRONIC ULCER OF RIGHT ANKLE W F 11/01/2018 MARY PERSAUD APRN Ot L97.522 NON-PRS CHRONIC ULCER OTH PRT LEFT FOOT 11/01/2018 SHANI HUTCHINSON MD Ot I87.333 CHRONIC VENOUS HTN W ULCER AND INFLAM OF 11/01/2018 SHANI HUTCHINSON MD, Ot L97.212 NON-PRESSURE CHRONIC ULCER OF RIGHT CALF 11/01/2018 SHANI HUTCHINSON MD Ot L97.222 NON-PRESSURE CHRONIC ULCER OF LEFT CALF 11/01/2018 SHANI HUTCHINSON MD Ot L97.312 NON-PRS CHRONIC ULCER OF RIGHT ANKLE W F 11/01/2018 SHANI HUTCHINSON MD Ot L97.522 NON-PRS CHRONIC ULCER OTH PRT LEFT FOOT 11/01/2018 SHANI HUTCHINSON MD Ot L97.222 NON-PRESSURE CHRONIC ULCER OF LEFT CALF 11/01/2018 SHANI HUTCHINSON MD Ot L97.312 NON-PRS CHRONIC ULCER OF RIGHT ANKLE W F 11/01/2018 SHANI HUTCHINSON MD Ot L97.522 NON-PRS CHRONIC ULCER OTH PRT LEFT FOOT 11/01/2018 SHANI HUTCHINSON MD Ot I87.333 CHRONIC VENOUS HTN W ULCER AND INFLAM OF 11/01/2018 SHANI HUTCHINSON MD Ot L97.222 NON-PRESSURE CHRONIC ULCER OF LEFT CALF 11/01/2018 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 I87.333 CHRONIC VENOUS HTN W ULCER AND INFLAM OF 11/01/2018 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 L97.212 NON-PRESSURE CHRONIC ULCER OF RIGHT CALF 11/01/2018 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 L97.222 NON-PRESSURE CHRONIC ULCER OF LEFT CALF 11/01/2018 MARY PERSAUD APRN Ot L97.312 NON-PRS CHRONIC ULCER OF RIGHT ANKLE W F 11/01/2018 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 L97.522 NON-PRS CHRONIC ULCER OTH PRT LEFT FOOT 11/01/2018 SHANI HUTCHINSON MD Ot D68.51 ACTIVATED PROTEIN C RESISTANCE 11/01/2018 SHANI HUTCHINSON MD Ot I87.333 CHRONIC VENOUS HTN W ULCER AND INFLAM OF 11/01/2018 SHANI HUTCHINSON MD Ot L97.212 NON-PRESSURE CHRONIC ULCER OF RIGHT CALF 11/01/2018 SHANI HUTCHINSON MD Ot L97.222 NON-PRESSURE CHRONIC ULCER OF LEFT CALF 11/01/2018 SHANI HUTCHINSON MD Ot L97.312 NON-PRS CHRONIC ULCER OF RIGHT ANKLE W F 11/01/2018 SHANI HUTCHINSON MD Ot L97.522 NON-PRS CHRONIC ULCER OTH PRT LEFT FOOT 11/01/2018 CORI, MARY R [employer]IST[employer] Ot D68.51 ACTIVATED PROTEIN C RESISTANCE 11/01/2018 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 I87.333 CHRONIC VENOUS HTN W ULCER AND INFLAM OF 11/01/2018 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 L97.212 NON-PRESSURE CHRONIC ULCER OF RIGHT CALF 11/01/2018 CORI MARY R [employer] ASSIST[employer] Ot L97.222 NON-PRESSURE CHRONIC ULCER OF LEFT CALF 11/01/2018 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 L97.312 NON-PRS CHRONIC ULCER OF RIGHT ANKLE W F 11/01/2018 MARY PERSAUD R [employer] Ot L97.522 NON-PRS CHRONIC ULCER OTH PRT LEFT FOOT 11/01/2018 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 D68.51 ACTIVATED PROTEIN C RESISTANCE 11/01/2018 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 I87.333 CHRONIC VENOUS HTN W ULCER AND INFLAM OF 11/01/2018 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 L97.212 NON-PRESSURE CHRONIC ULCER OF RIGHT CALF 11/01/2018 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 L97.222 NON-PRESSURE CHRONIC ULCER OF LEFT CALF 11/01/2018 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 L97.312 NON-PRS CHRONIC ULCER OF RIGHT ANKLE W F 11/01/2018 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 L97.522 NON-PRS CHRONIC ULCER OTH PRT LEFT FOOT 11/01/2018 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 D68.51 ACTIVATED PROTEIN C RESISTANCE 11/01/2018 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 I87.333 CHRONIC VENOUS HTN W ULCER AND INFLAM OF 11/01/2018 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 L97.212 NON-PRESSURE CHRONIC ULCER OF RIGHT CALF 11/01/2018 CORI MARY R [employer] ASSIST[employer] Ot L97.222 NON-PRESSURE CHRONIC ULCER OF LEFT CALF 11/01/2018 CORI MARY R [employer] ASSIST[employer] Ot L97.312 NON-PRS CHRONIC ULCER OF RIGHT ANKLE W F 11/01/2018 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 L97.522 NON-PRS CHRONIC ULCER OTH PRT LEFT FOOT 11/01/2018 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 D68.51 ACTIVATED PROTEIN C RESISTANCE 11/01/2018 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 I87.333 CHRONIC VENOUS HTN W ULCER AND INFLAM OF 11/01/2018 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 L97.212 NON-PRESSURE CHRONIC ULCER OF RIGHT CALF 11/01/2018 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 L97.222 NON-PRESSURE CHRONIC ULCER OF LEFT CALF 11/01/2018 MARY PERSAUD APRN Ot L97.312 NON-PRS CHRONIC ULCER OF RIGHT ANKLE W F 11/01/2018 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 L97.522 NON-PRS CHRONIC ULCER OTH PRT LEFT FOOT 11/01/2018 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 D68.51 ACTIVATED PROTEIN C RESISTANCE 11/01/2018 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 I87.333 CHRONIC VENOUS HTN W ULCER AND INFLAM OF 11/01/2018 MARY PERSAUD APRN Ot L97.212 NON-PRESSURE CHRONIC ULCER OF RIGHT CALF 11/01/2018 MARY PERSAUD APRN Ot L97.222 NON-PRESSURE CHRONIC ULCER OF LEFT CALF 11/01/2018 MARY PERSAUD APRN Ot L97.312 NON-PRS CHRONIC ULCER OF RIGHT ANKLE W F 11/01/2018 MARY PERSAUD APRN Ot L97.522 NON-PRS CHRONIC ULCER OTH PRT LEFT FOOT 11/01/2018 ZAIRE WESTFALL MD Ot D68.51 ACTIVATED PROTEIN C RESISTANCE 11/01/2018 ZAIRE WESTFALL MD Ot I87.333 CHRONIC VENOUS HTN W ULCER AND INFLAM OF 11/01/2018 ZAIRE WESTFALL MD Ot L97.212 NON- PRESSURE CHRONIC ULCER OF RIGHT CALF 11/01/2018 ZAIRE WESTFALL MD Ot L97.222 NON- PRESSURE CHRONIC ULCER OF LEFT CALF 11/01/2018 ZAIRE WESTFALL MD Ot L97.312 NON- PRS CHRONIC ULCER OF RIGHT ANKLE W F 11/01/2018 ZAIRE WESTFALL MD Ot L97.522 NON- PRS CHRONIC ULCER OTH PRT LEFT FOOT 11/01/2018 MARY PERSAUD APRN Ot D50.9 IRON DEFICIENCY ANEMIA, UNSPECIFIED 11/01/2018 MARY PERSAUD APRN Ot D68.51 ACTIVATED PROTEIN C RESISTANCE 11/01/2018 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 I82.503 CHRONIC EMBLSM AND THOMBOS UNSP DEEP VEI 11/01/2018 MARY PERSAUD APRN Ot I87.333 CHRONIC VENOUS HTN W ULCER AND INFLAM OF 11/01/2018 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 L97.212 NON-PRESSURE CHRONIC ULCER OF RIGHT CALF 11/01/2018 MARY PERSAUD APRN Ot L97.222 NON-PRESSURE CHRONIC ULCER OF LEFT CALF 11/01/2018 MARY PERSAUD APRN Ot L97.312 NON-PRS CHRONIC ULCER OF RIGHT ANKLE W F 11/01/2018 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 L97.522 NON-PRS CHRONIC ULCER OTH PRT LEFT FOOT 11/01/2018 ZAIRE WESTFALL MD Ot D50.9 IRON DEFICIENCY ANEMIA, UNSPECIFIED 11/01/2018 ZAIRE WESTFALL MD Ot D68.51 ACTIVATED PROTEIN C RESISTANCE 11/01/2018 ZAIRE WESTFALL MD Ot I82.503 CHRONIC EMBLSM AND THOMBOS UNSP DEEP VEI 11/01/2018 ZAIRE WESTFALL MD Ot I87.333 CHRONIC VENOUS HTN W ULCER AND INFLAM OF 11/01/2018 ZAIRE WESTFALL MD Ot L97.212 NON- PRESSURE CHRONIC ULCER OF RIGHT CALF 11/01/2018 ZAIRE WESTFALL MD Ot L97.222 NON- PRESSURE CHRONIC ULCER OF LEFT CALF 11/01/2018 ZAIRE WESTFALL MD Ot L97.312 NON- PRS CHRONIC ULCER OF RIGHT ANKLE W F 11/01/2018 ZAIRE WESTFALL MD Ot L97.522 NON- PRS CHRONIC ULCER OTH PRT LEFT FOOT 11/01/2018 MARY PERSAUD APRN Ot D50.9 IRON DEFICIENCY ANEMIA, UNSPECIFIED 11/01/2018 MARY PERSAUD APRN Ot D68.51 ACTIVATED PROTEIN C RESISTANCE 11/01/2018 MARY PERSAUD APRN Ot I82.503 CHRONIC EMBLSM AND THOMBOS UNSP DEEP VEI 11/01/2018 MARY PERSAUD APRN Ot I87.333 CHRONIC VENOUS HTN W ULCER AND INFLAM OF 11/01/2018 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 L97.212 NON-PRESSURE CHRONIC ULCER OF RIGHT CALF 11/01/2018 MARY PERSAUD APRN Ot L97.222 NON-PRESSURE CHRONIC ULCER OF LEFT CALF 11/01/2018 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 L97.312 NON-PRS CHRONIC ULCER OF RIGHT ANKLE W F 11/01/2018 MARY PERSAUD [employer]OMOTIONS ASSISTANT SALES MARKETING Ot L97.522 NON-PRS CHRONIC ULCER OTH PRT LEFT FOOT 11/01/2018 MARY PERSAUD [employer]OMOTIONS ASSISTANT SALES MARKETING Ot D50.9 IRON DEFICIENCY ANEMIA, UNSPECIFIED 11/01/2018 MARY PERSAUD [employer]OMOTIONS ASSISTANT SALES MARKETING Ot D68.51 ACTIVATED PROTEIN C RESISTANCE 11/01/2018 MARY PERSAUD [employer]IONS ASSISTANT SALES MARKETING Ot I82.503 CHRONIC EMBLSM AND THOMBOS UNSP DEEP VEI 11/01/2018 MARY PERSAUD [employer]OMOTIONS ASSISTANT SALES MARKETING Ot I87.333 CHRONIC VENOUS HTN W ULCER AND INFLAM OF 11/01/2018 MARY PERSAUD [employer]OTIONS ASSISTANT SALES MARKETING Ot L97.212 NON-PRESSURE CHRONIC ULCER OF RIGHT CALF 11/01/2018 MARY PERSAUD [employer]OTIONS ASSISTANT SALES MARKETING Ot L97.222 NON-PRESSURE CHRONIC ULCER OF LEFT CALF 11/01/2018 MARY PERSAUD R [employer]OTIONS ASSISTANT SALES MARKETING Ot L97.312 NON-PRS CHRONIC ULCER OF RIGHT ANKLE W F 11/01/2018 MARY PERSAUD [employer]OTIONS ASSISTANT SALES MARKETING Ot L97.522 NON-PRS CHRONIC ULCER OTH PRT LEFT FOOT 11/01/2018 MARY PERSAUD [employer]OMOTIONS ASSISTANT SALES MARKETING Ot D50.9 IRON DEFICIENCY ANEMIA, UNSPECIFIED 11/01/2018 MARY PERSAUD [employer] ASSISTANT SALES MARKETING Ot D68.51 ACTIVATED PROTEIN C RESISTANCE 11/01/2018 MARY PERSAUD [employer] ASSISTANT SAL[employer] MARKETING Ot I82.503 CHRONIC EMBLSM AND THOMBOS UNSP DEEP VEI 11/01/2018 MARY PERSAUD [employer]OMOTIONS ASSISTANT SALES MARKETING Ot I87.333 CHRONIC VENOUS HTN W ULCER AND INFLAM OF 11/01/2018 MARY PERSAUD [employer]OMOTIONS ASSISTANT SALES MARKETING Ot L97.212 NON-PRESSURE CHRONIC ULCER OF RIGHT CALF 11/01/2018 MARY PERSAUD [employer]IONS ASSISTANT SALES MARKETING Ot L97.222 NON-PRESSURE CHRONIC ULCER OF LEFT CALF 11/01/2018 MARY PERSAUD [employer] ASSISTANT SALES MARKETING Ot L97.312 NON-PRS CHRONIC ULCER OF RIGHT ANKLE W F 11/01/2018 MARY PERSAUD [employer] ASSISTANT SALES MARKETING Ot L97.522 NON-PRS CHRONIC ULCER OTH PRT LEFT FOOT 11/01/2018 SHANI HUTCHINSON MD Ot D50 .9 IRON DEFICIENCY ANEMIA, UNSPECIFIED 11/01/2018 SHANI HUTCHINSON MD Ot D68.51 ACTIVATED PROTEIN C RESISTANCE 11/01/2018 SHANI HUTCHINSON MD Ot I82.503 CHRONIC EMBLSM AND THOMBOS UNSP DEEP VEI 11/01/2018 SHANI HUTCHINSON MD Ot I87.333 CHRONIC VENOUS HTN W ULCER AND INFLAM OF 11/01/2018 SHANI HUTCHINSON MD, Ot L97.212 NON-PRESSURE CHRONIC ULCER OF RIGHT CALF 11/01/2018 SHANI HUTCHINSON MD Ot L97.222 NON-PRESSURE CHRONIC ULCER OF LEFT CALF 11/01/2018 SHANI HUTCHINSON MD, Ot L97.312 NON-PRS CHRONIC ULCER OF RIGHT ANKLE W F 11/01/2018 SHANI HUTCHINSON MD, Ot L97.522 NON-PRS CHRONIC ULCER OTH PRT LEFT FOOT 11/01/2018 SHANI HUTCHINSON MD, Ot D50 .9 IRON DEFICIENCY ANEMIA, UNSPECIFIED 11/01/2018 SHANI HUTCHINSON MD, Ot D68.51 ACTIVATED PROTEIN C RESISTANCE 11/01/2018 SHANI HUTCHINSON MD, Ot I82.503 CHRONIC EMBLSM AND THOMBOS UNSP DEEP VEI 11/01/2018 SHANI HUTCHINSON MD, Ot I87.333 CHRONIC VENOUS HTN W ULCER AND INFLAM OF 11/01/2018 SHANI HUTCHINSON MD, Ot L97.212 NON-PRESSURE CHRONIC ULCER OF RIGHT CALF 11/01/2018 SHANI HUTCHINSON MD Ot L97.222 NON-PRESSURE CHRONIC ULCER OF LEFT CALF 11/01/2018 SHANI HUTCHINSON MD Ot L97.312 NON-PRS CHRONIC ULCER OF RIGHT ANKLE W F 11/01/2018 SHANI HUTCHINSON MD, Ot L97.522 NON-PRS CHRONIC ULCER OTH PRT LEFT FOOT 11/01/2018 SHANI HUTCHINSON MD Ot L97.222 NON-PRESSURE CHRONIC ULCER OF LEFT CALF 11/01/2018 SHANI HUTCHINSON MD, Ot D50 .9 IRON DEFICIENCY ANEMIA, UNSPECIFIED 11/01/2018 SHANI HUTCHINSON MD, Ot D68.51 ACTIVATED PROTEIN C RESISTANCE 11/01/2018 SHANI HUTCHINSON MD, Ot I82.503 CHRONIC EMBLSM AND THOMBOS UNSP DEEP VEI 11/01/2018 SHANI HUTCHINSON MD Ot I87.333 CHRONIC VENOUS HTN W ULCER AND INFLAM OF 11/01/2018 SHANI HUTCHINSON MD Ot L97.212 NON-PRESSURE CHRONIC ULCER OF RIGHT CALF 11/01/2018 SHANI HUTCHINSON MD Ot L97.222 NON-PRESSURE CHRONIC ULCER OF LEFT CALF 11/01/2018 SHANI HUTCHINSON MD Ot L97.312 NON-PRS CHRONIC ULCER OF RIGHT ANKLE W F 11/01/2018 EVANGELINA MD, SHANI G Ot L97.522 NON-PRS CHRONIC ULCER OTH PRT LEFT FOOT 11/01/2018 SHANI HUTCHINSON MD, Ot D50 .9 IRON DEFICIENCY ANEMIA, UNSPECIFIED 11/01/2018 SHANI HUTCHINSON MD, Ot D68.51 ACTIVATED PROTEIN C RESISTANCE 11/01/2018 SHANI HUTCHINSON MD Ot E44 .0 MODERATE PROTEIN-CALORIE MALNUTRITION 11/01/2018 SHANI HUTCHINSON MD Ot I82.503 CHRONIC EMBLSM AND THOMBOS UNSP DEEP VEI 11/01/2018 SHANI HUTCHINSON MD Ot I87.333 CHRONIC VENOUS HTN W ULCER AND INFLAM OF 11/01/2018 SHANI HUTCHINSON MD Ot L97.212 NON-PRESSURE CHRONIC ULCER OF RIGHT CALF 11/01/2018 SHANI HUTCHINSON MD Ot L97.222 NON-PRESSURE CHRONIC ULCER OF LEFT CALF 11/01/2018 SHANI HUTCHINSON MD Ot L97.312 NON-PRS CHRONIC ULCER OF RIGHT ANKLE W F 11/01/2018 SHANI HUTCHINSON MD Ot L97.522 NON-PRS CHRONIC ULCER OTH PRT LEFT FOOT 11/01/2018 SHANI HUTCHINSON MD, Ot D50 .9 IRON DEFICIENCY ANEMIA, UNSPECIFIED 11/01/2018 SHANI HUTCHINSON MD, Ot D68.51 ACTIVATED PROTEIN C RESISTANCE 11/01/2018 SHANI HUTCHINSON MD, Ot E44 .0 MODERATE PROTEIN-CALORIE MALNUTRITION 11/01/2018 SHANI HUTCHINSON MD, Ot I82.503 CHRONIC EMBLSM AND THOMBOS UNSP DEEP VEI 11/01/2018 SHANI HUTCIHNSON MD Ot I87.333 CHRONIC VENOUS HTN W ULCER AND INFLAM OF 11/01/2018 SHANI HUTCHINSON MD Ot L97.212 NON-PRESSURE CHRONIC ULCER OF RIGHT CALF 11/01/2018 SHANI HUTCHINSON MD Ot L97.222 NON-PRESSURE CHRONIC ULCER OF LEFT CALF 11/01/2018 SHANI HUTCHINSON MD Ot L97.312 NON-PRS CHRONIC ULCER OF RIGHT ANKLE W F 11/01/2018 SHANI HUTCHINSON MD Ot L97.522 NON-PRS CHRONIC ULCER OTH PRT LEFT FOOT 11/01/2018 SHANI HUTCHINSON MD Ot D50 .9 IRON DEFICIENCY ANEMIA, UNSPECIFIED 11/01/2018 SHANI HUTCHINSON MD, Ot D68.51 ACTIVATED PROTEIN C RESISTANCE 11/01/2018 SHANI HUTCHINSON MD, Ot E44 .0 MODERATE PROTEIN-CALORIE MALNUTRITION 11/01/2018 SHANI HUTCHINSON MD, Ot I82.503 CHRONIC EMBLSM AND THOMBOS UNSP DEEP VEI 11/01/2018 SHANI HUTCHINSON MD, Ot I87.333 CHRONIC VENOUS HTN W ULCER AND INFLAM OF 11/01/2018 SHANI HUTCHINSON MD, Ot L97.212 NON-PRESSURE CHRONIC ULCER OF RIGHT CALF 11/01/2018 SHANI HUTCHINSON MD, Ot L97.222 NON-PRESSURE CHRONIC ULCER OF LEFT CALF 11/01/2018 SHANI HUTCHINSON MD, Ot L97.312 NON-PRS CHRONIC ULCER OF RIGHT ANKLE W F 11/01/2018 SHANI HUTCHINSON MD, Ot L97.522 NON-PRS CHRONIC ULCER OTH PRT LEFT FOOT 11/01/2018 SHANI HUTCHINSON MD, Ot E44 .0 MODERATE PROTEIN-CALORIE MALNUTRITION 11/01/2018 SHANI HUTCHINSON MD, Ot D50 .9 IRON DEFICIENCY ANEMIA, UNSPECIFIED 11/01/2018 SHANI HUTCHINSON MD, Ot D68.51 ACTIVATED PROTEIN C RESISTANCE 11/01/2018 SHANI HUTCHINSON MD, Ot E44 .0 MODERATE PROTEIN-CALORIE MALNUTRITION 11/01/2018 SHANI HUTCHINSON MD, Ot I82.503 CHRONIC EMBLSM AND THOMBOS UNSP DEEP VEI 11/01/2018 SHANI HUTCHINSON MD, Ot I87.333 CHRONIC VENOUS HTN W ULCER AND INFLAM OF 11/01/2018 SHANI HUTCHINSON MD, Ot L97.212 NON-PRESSURE CHRONIC ULCER OF RIGHT CALF 11/01/2018 SHANI HUTCHINSON MD Ot L97.222 NON-PRESSURE CHRONIC ULCER OF LEFT CALF 11/01/2018 SHANI HUTCHINSON MD, Ot L97.312 NON-PRS CHRONIC ULCER OF RIGHT ANKLE W F 11/01/2018 SHANI HUTCHINSON MD, Ot L97.522 NON-PRS CHRONIC ULCER OTH PRT LEFT FOOT 11/01/2018 SHANI HUTCHINSON MD, Ot D50 .9 IRON DEFICIENCY ANEMIA, UNSPECIFIED 11/01/2018 SHANI HUTCHINSON MD, Ot D68.51 ACTIVATED PROTEIN C RESISTANCE 11/01/2018 SHANI HUTCHINSON MD Ot E44 .0 MODERATE PROTEIN-CALORIE MALNUTRITION 11/01/2018 SHANI HUTCHINSON MD, Ot I82.503 CHRONIC EMBLSM AND THOMBOS UNSP DEEP VEI 11/01/2018 SHANI HUTCHINSON MD, Ot I87.333 CHRONIC VENOUS HTN W ULCER AND INFLAM OF 11/01/2018 SHANI HUTCHINSON MD, Ot L97.212 NON-PRESSURE CHRONIC ULCER OF RIGHT CALF 11/01/2018 SHANI HUTCHINSON MD, Ot L97.222 NON-PRESSURE CHRONIC ULCER OF LEFT CALF 11/01/2018 SHANI HUTCHINSON MD, Ot L97.312 NON-PRS CHRONIC ULCER OF RIGHT ANKLE W F 11/01/2018 SHANI HUTCHINSON MD, Ot L97.522 NON-PRS CHRONIC ULCER OTH PRT LEFT FOOT 11/01/2018 SHANI HUTCHINSON MD, Ot D50 .9 IRON DEFICIENCY ANEMIA, UNSPECIFIED 11/01/2018 SHANI HUTCHINSON MD, Ot D68.51 ACTIVATED PROTEIN C RESISTANCE 11/01/2018 SHANI HUTCHINSON MD, Ot E44 .0 MODERATE PROTEIN-CALORIE MALNUTRITION 11/01/2018 SHANI HUTCHINSON MD, Ot I87.333 CHRONIC VENOUS HTN W ULCER AND INFLAM OF 11/01/2018 SHANI HUTCHINSON MD, Ot L97.212 NON-PRESSURE CHRONIC ULCER OF RIGHT CALF 11/01/2018 SHANI HUTCHINSON MD Ot L97.222 NON-PRESSURE CHRONIC ULCER OF LEFT CALF 11/01/2018 SHANI HUTCHINSON MD, Ot L97.312 NON-PRS CHRONIC ULCER OF RIGHT ANKLE W F 11/01/2018 SHANI HUTCHINSON MD, Ot L97.522 NON-PRS CHRONIC ULCER OTH PRT LEFT FOOT 11/01/2018 SHANI HUTCHINSON MD Ot Z86.718 PERSONAL HISTORY OF OTHER VENOUS THROMBO 11/01/2018 SHANI HUTCHINSON MD, Ot D50 .9 IRON DEFICIENCY ANEMIA, UNSPECIFIED 11/01/2018 SHANI HUTCHINSON MD, Ot D68.51 ACTIVATED PROTEIN C RESISTANCE 11/01/2018 SHANI HUTCHINSON MD Ot E44 .0 MODERATE PROTEIN-CALORIE MALNUTRITION 11/01/2018 SHANI UHTCHINSON MD, Ot I87.333 CHRONIC VENOUS HTN W ULCER AND INFLAM OF 11/01/2018 SHANI HUTCHINSON MD Ot L97.212 NON-PRESSURE CHRONIC ULCER OF RIGHT CALF 11/01/2018 SHANI HUTCHINSON MD Ot L97.222 NON-PRESSURE CHRONIC ULCER OF LEFT CALF 11/01/2018 SHANI HUTCHINSON MD, Ot L97.312 NON-PRS CHRONIC ULCER OF RIGHT ANKLE W F 11/01/2018 SHANI HUTCHINSON MD, Ot L97.522 NON-PRS CHRONIC ULCER OTH PRT LEFT FOOT 11/01/2018 SHANI HUTCHINSON MD, Ot Z86.718 PERSONAL HISTORY OF OTHER VENOUS THROMBO 11/01/2018 SHANI HUTCHINSON MD, Ot D50 .9 IRON DEFICIENCY ANEMIA, UNSPECIFIED 11/01/2018 SHANI HUTCHINSON MD, Ot D68.51 ACTIVATED PROTEIN C RESISTANCE 11/01/2018 SHANI HUTCHINSON MD, Ot E44 .0 MODERATE PROTEIN-CALORIE MALNUTRITION 11/01/2018 SHANI HUTCHINSON MD, Ot I82.503 CHRONIC EMBLSM AND THOMBOS UNSP DEEP VEI 11/01/2018 SHANI HUTCHINSON MD, Ot I87.333 CHRONIC VENOUS HTN W ULCER AND INFLAM OF 11/01/2018 SHANI HUTCHINSON MD, Ot L97.212 NON-PRESSURE CHRONIC ULCER OF RIGHT CALF 11/01/2018 SHANI HUTCHINSON MD Ot L97.222 NON-PRESSURE CHRONIC ULCER OF LEFT CALF 11/01/2018 SHANI HUTCHINSON MD, Ot L97.312 NON-PRS CHRONIC ULCER OF RIGHT ANKLE W F 11/01/2018 SHANI HUTCHINSON MD, Ot L97.522 NON-PRS CHRONIC ULCER OTH PRT LEFT FOOT 11/01/2018 SHANI HUTCHINSON MD, Ot D50 .9 IRON DEFICIENCY ANEMIA, UNSPECIFIED 11/01/2018 SHANI HUTCHINSON MD, Ot D68.51 ACTIVATED PROTEIN C RESISTANCE 11/01/2018 SHANI HUTCHINSON MD, Ot E44 .0 MODERATE PROTEIN-CALORIE MALNUTRITION 11/01/2018 SHANI HUTCHINSON MD, Ot I82.503 CHRONIC EMBLSM AND THOMBOS UNSP DEEP VEI 11/01/2018 SHANI HUTCHINSON MD, Ot I87.333 CHRONIC VENOUS HTN W ULCER AND INFLAM OF 11/01/2018 SHANI HUTCHINSON MD, Ot L97.212 NON-PRESSURE CHRONIC ULCER OF RIGHT CALF 11/01/2018 SHANI HUTCHINSON MD Ot L97.222 NON-PRESSURE CHRONIC ULCER OF LEFT CALF 11/01/2018 SHANI HUTCHINSON MD Ot L97.312 NON-PRS CHRONIC ULCER OF RIGHT ANKLE W F 11/01/2018 SHANI HUTCHINSON MD, Ot L97.522 NON-PRS CHRONIC ULCER OTH PRT LEFT FOOT 11/01/2018 SHANI HUTCHINSON MD, Ot D50 .9 IRON DEFICIENCY ANEMIA, UNSPECIFIED 11/01/2018 SHANI HUTCHINSON MD, Ot D68.51 ACTIVATED PROTEIN C RESISTANCE 11/01/2018 SHANI HUTCHINSON MD, Ot E44 .0 MODERATE PROTEIN-CALORIE MALNUTRITION 11/01/2018 SHANI HUTCHINSON MD, Ot I87.333 CHRONIC VENOUS HTN W ULCER AND INFLAM OF 11/01/2018 SHANI HUTCHINSON MD, Ot L97.212 NON-PRESSURE CHRONIC ULCER OF RIGHT CALF 11/01/2018 SHANI HUTCHINSON MD, Ot L97.222 NON-PRESSURE CHRONIC ULCER OF LEFT CALF 11/01/2018 SHANI HUTCHINSON MD, Ot L97.312 NON-PRS CHRONIC ULCER OF RIGHT ANKLE W F 11/01/2018 SHANI HUTCHINSON MD, Ot L97.522 NON-PRS CHRONIC ULCER OTH PRT LEFT FOOT 11/01/2018 SHANI HUTCHINSON MD, Ot Z86.718 PERSONAL HISTORY OF OTHER VENOUS THROMBO 11/01/2018 SHANI HUTCHINSON MD, Ot D68.51 ACTIVATED PROTEIN C RESISTANCE 11/01/2018 SHANI HUTCHINSON MD, Ot E44 .0 MODERATE PROTEIN-CALORIE MALNUTRITION 11/01/2018 SHANI HUTCHINSON MD, Ot I87.333 CHRONIC VENOUS HTN W ULCER AND INFLAM OF 11/01/2018 SHANI HUTCHINSON MD, Ot L97.212 NON-PRESSURE CHRONIC ULCER OF RIGHT CALF 11/01/2018 SHANI HUTCHINSON MD Ot L97.222 NON-PRESSURE CHRONIC ULCER OF LEFT CALF 11/01/2018 SHANI HUTCHINSON MD, Ot L97.312 NON-PRS CHRONIC ULCER OF RIGHT ANKLE W F 11/01/2018 SHANI HUTCHINSON MD, Ot L97.522 NON-PRS CHRONIC ULCER OTH PRT LEFT FOOT 11/01/2018 SHANI HUTCHINSON MD, Ot Z86.718 PERSONAL HISTORY OF OTHER VENOUS THROMBO 11/01/2018 SHANI HUTCHINSON MD, Ot D68.51 ACTIVATED PROTEIN C RESISTANCE 11/01/2018 SHANI HUTCHINSON MD, Ot E44 .0 MODERATE PROTEIN-CALORIE MALNUTRITION 11/01/2018 SHANI HUTCHINSON MD Ot I87.333 CHRONIC VENOUS HTN W ULCER AND INFLAM OF 11/01/2018 SHANI HUTCHINSON MD Ot L97.212 NON-PRESSURE CHRONIC ULCER OF RIGHT CALF 11/01/2018 SHANI HUTCHINSON MD Ot L97.222 NON-PRESSURE CHRONIC ULCER OF LEFT CALF 11/01/2018 SHANI HUTCHINSON MD, Ot L97.312 NON-PRS CHRONIC ULCER OF RIGHT ANKLE W F 11/01/2018 SHANI HUTCHINSON MD, Ot L97.522 NON-PRS CHRONIC ULCER OTH PRT LEFT FOOT 11/01/2018 SHANI HUTCHINSON MD, Ot Z86.718 PERSONAL HISTORY OF OTHER VENOUS THROMBO 11/01/2018 SHANI HUTCHINSON MD, Ot D68.51 ACTIVATED PROTEIN C RESISTANCE 11/01/2018 SHANI HUTCHINSON MD Ot E44 .0 MODERATE PROTEIN-CALORIE MALNUTRITION 11/01/2018 SHANI HUTCHINSON MD Ot I87.333 CHRONIC VENOUS HTN W ULCER AND INFLAM OF 11/01/2018 SHANI HUTCHINSON MD, Ot L97.212 NON-PRESSURE CHRONIC ULCER OF RIGHT CALF 11/01/2018 SHANI HUTCHINSON MD, Ot L97.222 NON-PRESSURE CHRONIC ULCER OF LEFT CALF 11/01/2018 SHANI HUTCHINSON MD, Ot L97.312 NON-PRS CHRONIC ULCER OF RIGHT ANKLE W F 11/01/2018 SHANI HUTCHINSON MD, Ot L97.522 NON-PRS CHRONIC ULCER OTH PRT LEFT FOOT 11/01/2018 SHANI HUTCHINSON MD, Ot Z86.718 PERSONAL HISTORY OF OTHER VENOUS THROMBO 11/01/2018 SHANI HUTCHINSON MD, Ot D68.51 ACTIVATED PROTEIN C RESISTANCE 11/01/2018 SHANI HUTCHINSON MD, Ot E44 .0 MODERATE PROTEIN-CALORIE MALNUTRITION 11/01/2018 SHANI HUTCHINSON MD Ot I87.333 CHRONIC VENOUS HTN W ULCER AND INFLAM OF 11/01/2018 SHANI HUTCHINSON MD, Ot L97.212 NON-PRESSURE CHRONIC ULCER OF RIGHT CALF 11/01/2018 SHANI HUTCHINSON MD Ot L97.222 NON-PRESSURE CHRONIC ULCER OF LEFT CALF 11/01/2018 SHANI HUTCHINSON MD Ot L97.312 NON-PRS CHRONIC ULCER OF RIGHT ANKLE W F 11/01/2018 SHANI HUTCHINSON MD, Ot L97.522 NON-PRS CHRONIC ULCER OTH PRT LEFT FOOT 11/01/2018 SHANI HUTCHINSON MD, Ot Z86.718 PERSONAL HISTORY OF OTHER VENOUS THROMBO 11/01/2018 MARY PERSAUD APRN Ot D68.51 ACTIVATED PROTEIN C RESISTANCE 11/01/2018 CORI, MARY R [employer] ASSISTANT [employer]ET[employer] Ot E44.0 MODERATE PROTEIN-CALORIE MALNUTRITION 11/01/2018 MARY PERSAUD [employer]OTIONS ASSISTANT SALES MARKETING Ot I87.333 CHRONIC VENOUS HTN W ULCER AND INFLAM OF 11/01/2018 MARY PERSAUD [employer]IONS ASSISTANT SALES MARKETING Ot L97.212 NON-PRESSURE CHRONIC ULCER OF RIGHT CALF 11/01/2018 MARY PERSAUD [employer]OTIONS ASSISTANT SALES MARKETING Ot L97.222 NON-PRESSURE CHRONIC ULCER OF LEFT CALF 11/01/2018 MARY PERSAUD APRN Ot L97.312 NON-PRS CHRONIC ULCER OF RIGHT ANKLE W F 11/01/2018 MARY PERSAUD [employer] ASSISTANT SALES MARKETING Ot L97.522 NON-PRS CHRONIC ULCER OTH PRT LEFT FOOT 11/01/2018 MARY PERSAUD APRN Ot Z86.718 PERSONAL HISTORY OF OTHER VENOUS THROMBO 11/01/2018 SHANI HUTCHINSON MD Ot D68.51 ACTIVATED PROTEIN C RESISTANCE 11/01/2018 SHANI HUTCHINSON MD Ot E44 .0 MODERATE PROTEIN-CALORIE MALNUTRITION 11/01/2018 SHANI HUTCHINSON MD Ot I87.333 CHRONIC VENOUS HTN W ULCER AND INFLAM OF 11/01/2018 SHANI HUTCHINSON MD Ot L97.212 NON-PRESSURE CHRONIC ULCER OF RIGHT CALF 11/01/2018 SHANI HUTCHINSON MD Ot L97.222 NON-PRESSURE CHRONIC ULCER OF LEFT CALF 11/01/2018 SHANI HUTCHINSON MD Ot L97.312 NON-PRS CHRONIC ULCER OF RIGHT ANKLE W F 11/01/2018 SHANI HUTCHINSON MD Ot L97.522 NON-PRS CHRONIC ULCER OTH PRT LEFT FOOT 11/01/2018 SHANI HUTCHINSON MD Ot Z86.718 PERSONAL HISTORY OF OTHER VENOUS THROMBO 11/01/2018 MARY PERSAUD APRN Ot D68.51 ACTIVATED PROTEIN C RESISTANCE 11/01/2018 MARY PERSAUD APRN Ot E44.0 MODERATE PROTEIN-CALORIE MALNUTRITION 11/01/2018 MARY PERSAUD APRN Ot I87.333 CHRONIC VENOUS HTN W ULCER AND INFLAM OF 11/01/2018 MARY PERSAUD APRN Ot L97.212 NON-PRESSURE CHRONIC ULCER OF RIGHT CALF 11/01/2018 MARY PERSAUD APRN Ot L97.222 NON-PRESSURE CHRONIC ULCER OF LEFT CALF 11/01/2018 MARY PERSAUD APRN Ot L97.312 NON-PRS CHRONIC ULCER OF RIGHT ANKLE W F 11/01/2018 MARY PERSAUD APRN Ot L97.522 NON-PRS CHRONIC ULCER OTH PRT LEFT FOOT 11/01/2018 MARY PERSAUD APRN Ot Z86.718 PERSONAL HISTORY OF OTHER VENOUS THROMBO 11/01/2018 SHANI HUTCHINSON MD, Ot D68.51 ACTIVATED PROTEIN C RESISTANCE 11/01/2018 SHANI HUTCHINSON MD Ot E44 .0 MODERATE PROTEIN-CALORIE MALNUTRITION 11/01/2018 SHANI HUTCHINSON MD, Ot I87.333 CHRONIC VENOUS HTN W ULCER AND INFLAM OF 11/01/2018 SHANI HUTCHINSON MD Ot L97.212 NON-PRESSURE CHRONIC ULCER OF RIGHT CALF 11/01/2018 SHANI HUTCHINSON MD, Ot L97.222 NON-PRESSURE CHRONIC ULCER OF LEFT CALF 11/01/2018 SHANI HUTCHINSON MD, Ot L97.312 NON-PRS CHRONIC ULCER OF RIGHT ANKLE W F 11/01/2018 SHANI HUTCHINSON MD, Ot L97.522 NON-PRS CHRONIC ULCER OTH PRT LEFT FOOT 11/01/2018 SHNAI HUTCHINSON MD, Ot Z86.718 PERSONAL HISTORY OF OTHER VENOUS THROMBO 11/01/2018 SHANI HUTCHINSON MD, Ot D68.51 ACTIVATED PROTEIN C RESISTANCE 11/01/2018 SHANI HUTCHINSON MD, Ot E44 .0 MODERATE PROTEIN-CALORIE MALNUTRITION 11/01/2018 SHANI HUTCHINSON MD, Ot I87.333 CHRONIC VENOUS HTN W ULCER AND INFLAM OF 11/01/2018 SHANI HUTCHINSON MD Ot L97.212 NON-PRESSURE CHRONIC ULCER OF RIGHT CALF 11/01/2018 SHANI HUTCHINSON MD, Ot L97.222 NON-PRESSURE CHRONIC ULCER OF LEFT CALF 11/01/2018 SHANI HUTCHINSON MD Ot L97.312 NON-PRS CHRONIC ULCER OF RIGHT ANKLE W F 11/01/2018 SHANI HUTCHINSON MD Ot L97.522 NON-PRS CHRONIC ULCER OTH PRT LEFT FOOT 11/01/2018 SHANI HUTCHINSON MD, Ot Z86.718 PERSONAL HISTORY OF OTHER VENOUS THROMBO 11/01/2018 SHANI HUTCHINSON MD, Ot D68.51 ACTIVATED PROTEIN C RESISTANCE 11/01/2018 SHANI HUTCHINSON MD Ot E44 .0 MODERATE PROTEIN-CALORIE MALNUTRITION 11/01/2018 SHANI HUTCHINSON MD, Ot I82.503 CHRONIC EMBLSM AND THOMBOS UNSP DEEP VEI 11/01/2018 SHANI HUTCHINSON MD, Ot I87.333 CHRONIC VENOUS HTN W ULCER AND INFLAM OF 11/01/2018 SHANI HUTCHINSON MD, Ot L97.212 NON-PRESSURE CHRONIC ULCER OF RIGHT CALF 11/01/2018 SHANI HUTCHINSON MD, Ot L97.222 NON-PRESSURE CHRONIC ULCER OF LEFT CALF 11/01/2018 SHANI HUTCHINSON MD, Ot L97.312 NON-PRS CHRONIC ULCER OF RIGHT ANKLE W F 11/01/2018 SHANI HUTCHINSON MD, Ot L97.522 NON-PRS CHRONIC ULCER OTH PRT LEFT FOOT 11/01/2018 SHANI HUTCHINSON MD, Ot D68.51 ACTIVATED PROTEIN C RESISTANCE 11/01/2018 SHANI HUTCHINSON MD, Ot E44 .0 MODERATE PROTEIN-CALORIE MALNUTRITION 11/01/2018 SHANI HUTCHINSON MD, Ot I87.333 CHRONIC VENOUS HTN W ULCER AND INFLAM OF 11/01/2018 SHANI HUTCHINSON MD, Ot L97.212 NON-PRESSURE CHRONIC ULCER OF RIGHT CALF 11/01/2018 SHANI HUTCHINSON MD, Ot L97.222 NON-PRESSURE CHRONIC ULCER OF LEFT CALF 11/01/2018 SHANI HUTCHINSON MD, Ot L97.312 NON-PRS CHRONIC ULCER OF RIGHT ANKLE W F 11/01/2018 SHANI HUTCHINSON MD, Ot L97.522 NON-PRS CHRONIC ULCER OTH PRT LEFT FOOT 11/01/2018 SHANI HUTCHINSON MD, Ot Z86.718 PERSONAL HISTORY OF OTHER VENOUS THROMBO 11/01/2018 SHANI HUTCHINSON MD, Ot D68.51 ACTIVATED PROTEIN C RESISTANCE 11/01/2018 SHANI HUTCHINSON MD, Ot E44 .0 MODERATE PROTEIN-CALORIE MALNUTRITION 11/01/2018 SHANI HUTCHINSON MD, Ot I87.333 CHRONIC VENOUS HTN W ULCER AND INFLAM OF 11/01/2018 SHANI HUTCHINSON MD Ot L97.212 NON-PRESSURE CHRONIC ULCER OF RIGHT CALF 11/01/2018 SHANI HUTCHINSON MD, Ot L97.222 NON-PRESSURE CHRONIC ULCER OF LEFT CALF 11/01/2018 SHANI HUTCHINSON MD, Ot L97.312 NON-PRS CHRONIC ULCER OF RIGHT ANKLE W F 11/01/2018 SHANI HUTCHINSON MD, Ot L97.522 NON-PRS CHRONIC ULCER OTH PRT LEFT FOOT 11/01/2018 SHANI HUTCHINSON MD, Ot Z86.718 PERSONAL HISTORY OF OTHER VENOUS THROMBO 11/01/2018 SHANI HUTCHINSON MD, Ot D68.51 ACTIVATED PROTEIN C RESISTANCE 11/01/2018 SHANI HUTCHINSON MD, Ot E44 .0 MODERATE PROTEIN-CALORIE MALNUTRITION 11/01/2018 SHANI HUTCHINSON MD, Ot I87.333 CHRONIC VENOUS HTN W ULCER AND INFLAM OF 11/01/2018 SHANI HUTCHINSON MD Ot L97.212 NON-PRESSURE CHRONIC ULCER OF RIGHT CALF 11/01/2018 SHANI HUTCHINSON MD Ot L97.222 NON-PRESSURE CHRONIC ULCER OF LEFT CALF 11/01/2018 SHANI HUTCHINSON MD, Ot L97.312 NON-PRS CHRONIC ULCER OF RIGHT ANKLE W F 11/01/2018 SHANI HUTCHINSON MD, Ot L97.522 NON-PRS CHRONIC ULCER OTH PRT LEFT FOOT 11/01/2018 SHANI HUTCHINSON MD Ot R19 .5 OTHER FECAL ABNORMALITIES 11/01/2018 SHANI HUTCHINSON MD, Ot Z86.718 PERSONAL HISTORY OF OTHER VENOUS THROMBO 11/01/2018 MARY PERSAUD APRN Ot D68.51 ACTIVATED PROTEIN C RESISTANCE 11/01/2018 MARY PERSAUD APRN Ot E44.0 MODERATE PROTEIN-CALORIE MALNUTRITION 11/01/2018 MARY PERSAUD APRN Ot I82.503 CHRONIC EMBLSM AND THOMBOS UNSP DEEP VEI 11/01/2018 MARY PERSAUD APRN Ot I87.333 CHRONIC VENOUS HTN W ULCER AND INFLAM OF 11/01/2018 MARY PERSAUD [employer] ASSISTANT SALES MARKETING Ot L97.212 NON-PRESSURE CHRONIC ULCER OF RIGHT CALF 11/01/2018 MARY PERSAUD APRN Ot L97.222 NON-PRESSURE CHRONIC ULCER OF LEFT CALF 11/01/2018 MARY PERSAUD APRN Ot L97.312 NON-PRS CHRONIC ULCER OF RIGHT ANKLE W F 11/01/2018 MARY PERSAUD APRN Ot L97.522 NON-PRS CHRONIC ULCER OTH PRT LEFT FOOT 11/01/2018 MARY PERSAUD APRN Ot R19.5 OTHER FECAL ABNORMALITIES 11/01/2018 SHANI HUTCHINSON MD, Ot D68.51 ACTIVATED PROTEIN C RESISTANCE 11/01/2018 SHANI HUTCHINSON MD, Ot E44 .0 MODERATE PROTEIN-CALORIE MALNUTRITION 11/01/2018 SHANI HUTCHINSON MD, Ot I87.333 CHRONIC VENOUS HTN W ULCER AND INFLAM OF 11/01/2018 SHANI HUTCHINSON MD Ot L97.212 NON-PRESSURE CHRONIC ULCER OF RIGHT CALF 11/01/2018 SHANI HUTCHINSON MD Ot L97.222 NON-PRESSURE CHRONIC ULCER OF LEFT CALF 11/01/2018 SHANI HUTCHINSON MD Ot L97.312 NON-PRS CHRONIC ULCER OF RIGHT ANKLE W F 11/01/2018 SHANI HUTCHINSON MD Ot L97.522 NON-PRS CHRONIC ULCER OTH PRT LEFT FOOT 11/01/2018 SHANI HUTCHINSON MD, Ot Z86.718 PERSONAL HISTORY OF OTHER VENOUS THROMBO 11/01/2018 SHANI HUTCHINSON MD, Ot D68.51 ACTIVATED PROTEIN C RESISTANCE 11/01/2018 SHANI HUTCHINSON MD, Ot E44 .0 MODERATE PROTEIN-CALORIE MALNUTRITION 11/01/2018 SHANI HUTCHINSON MD Ot I87.333 CHRONIC VENOUS HTN W ULCER AND INFLAM OF 11/01/2018 SHANI HUTCHINSON MD, Ot L97.212 NON-PRESSURE CHRONIC ULCER OF RIGHT CALF 11/01/2018 SHANI HUTCHINSON MD Ot L97.222 NON-PRESSURE CHRONIC ULCER OF LEFT CALF 11/01/2018 SHANI HUTCHINSON MD Ot L97.312 NON-PRS CHRONIC ULCER OF RIGHT ANKLE W F 11/01/2018 SHANI HUTCHINSON MD, Ot L97.522 NON-PRS CHRONIC ULCER OTH PRT LEFT FOOT 11/01/2018 SHANI HUTCHINSON MD, Ot Z86.718 PERSONAL HISTORY OF OTHER VENOUS THROMBO 11/01/2018 SHANI HUTCHINSON MD, Ot D68.51 ACTIVATED PROTEIN C RESISTANCE 11/01/2018 SHANI HUTCHINSON MD, Ot E44 .0 MODERATE PROTEIN-CALORIE MALNUTRITION 11/01/2018 SHANI HUTCHINSON MD Ot I87.333 CHRONIC VENOUS HTN W ULCER AND INFLAM OF 11/01/2018 SHANI HUTCHINSON MD Ot L97.212 NON-PRESSURE CHRONIC ULCER OF RIGHT CALF 11/01/2018 SHANI HUTCHINSON MD Ot L97.222 NON-PRESSURE CHRONIC ULCER OF LEFT CALF 11/01/2018 SHANI HUTCHINSON MD Ot L97.312 NON-PRS CHRONIC ULCER OF RIGHT ANKLE W F 11/01/2018 SHANI HUTCHINSON MD, Ot L97.522 NON-PRS CHRONIC ULCER OTH PRT LEFT FOOT 11/01/2018 SHANI HUTCHINSON MD, Ot Z86.718 PERSONAL HISTORY OF OTHER VENOUS THROMBO 11/01/2018 SHANI HUTCHINSON MD, Ot E44 .0 MODERATE PROTEIN-CALORIE MALNUTRITION 11/01/2018 SHANI HUTCHINSON MD, Ot D68.51 ACTIVATED PROTEIN C RESISTANCE 11/01/2018 SHANI HUTCHINSON MD, Ot E44 .0 MODERATE PROTEIN-CALORIE MALNUTRITION 11/01/2018 SHANI HUTCHINSON MD, Ot I82.503 CHRONIC EMBLSM AND THOMBOS UNSP DEEP VEI 11/01/2018 SHANI HUTCHINSON MD Ot I87.333 CHRONIC VENOUS HTN W ULCER AND INFLAM OF 11/01/2018 SHANI HUTCHINSON MD Ot L97.212 NON-PRESSURE CHRONIC ULCER OF RIGHT CALF 11/01/2018 SHANI HUTCHINSON MD Ot L97.222 NON-PRESSURE CHRONIC ULCER OF LEFT CALF 11/01/2018 SHANI HUTCHINSON MD Ot L97.312 NON-PRS CHRONIC ULCER OF RIGHT ANKLE W F 11/01/2018 SHANI HUTCHINSON MD, Ot L97.522 NON-PRS CHRONIC ULCER OTH PRT LEFT FOOT 11/01/2018 SHANI HUTCHINSON MD, Ot D68.51 ACTIVATED PROTEIN C RESISTANCE 11/01/2018 SHANI HUTCHINSON MD, Ot E44 .0 MODERATE PROTEIN-CALORIE MALNUTRITION 11/01/2018 SHANI HUTCHINSON MD, Ot I82.503 CHRONIC EMBLSM AND THOMBOS UNSP DEEP VEI 11/01/2018 SHANI HUTCHINSON MD Ot I87.333 CHRONIC VENOUS HTN W ULCER AND INFLAM OF 11/01/2018 SHANI HUTCHINSON MD Ot L97.212 NON-PRESSURE CHRONIC ULCER OF RIGHT CALF 11/01/2018 SHANI HUTCHINSON MD Ot L97.222 NON-PRESSURE CHRONIC ULCER OF LEFT CALF 11/01/2018 SHANI HUTCHINSON MD Ot L97.312 NON-PRS CHRONIC ULCER OF RIGHT ANKLE W F 11/01/2018 SHANI HUTCHINSON MD, Ot L97.522 NON-PRS CHRONIC ULCER OTH PRT LEFT FOOT 11/01/2018 SHANI HUTCHINSON MD, Ot D68.51 ACTIVATED PROTEIN C RESISTANCE 11/01/2018 SHANI HUTCHINSON MD Ot E44 .0 MODERATE PROTEIN-CALORIE MALNUTRITION 11/01/2018 SHANI HUTCHINSON MD, Ot I82.503 CHRONIC EMBLSM AND THOMBOS UNSP DEEP VEI 11/01/2018 SHANI HUTCHINSON MD Ot L97.212 NON-PRESSURE CHRONIC ULCER OF RIGHT CALF 11/01/2018 SHANI HUTCHINSON MD, Ot L97.222 NON-PRESSURE CHRONIC ULCER OF LEFT CALF 11/01/2018 SHANI HUTCHINSON MD Ot L97.312 NON-PRS CHRONIC ULCER OF RIGHT ANKLE W F 11/01/2018 SHANI HUTCHINSON MD Ot L97.522 NON-PRS CHRONIC ULCER OTH PRT LEFT FOOT 11/01/2018 SHANI HUTCHINSON MD, Ot D68.51 ACTIVATED PROTEIN C RESISTANCE 11/01/2018 SHANI HUTCHINSON MD Ot E44 .0 MODERATE PROTEIN-CALORIE MALNUTRITION 11/01/2018 SHANI HUTCHINSON MD, Ot I82.503 CHRONIC EMBLSM AND THOMBOS UNSP DEEP VEI 11/01/2018 SHANI HUTCHINSON MD Ot I87.333 CHRONIC VENOUS HTN W ULCER AND INFLAM OF 11/01/2018 SHANI HUTCHINSON MD Ot L97.212 NON-PRESSURE CHRONIC ULCER OF RIGHT CALF 11/01/2018 SHANI HUTCHINSON MD Ot L97.222 NON-PRESSURE CHRONIC ULCER OF LEFT CALF 11/01/2018 SHANI HUTCHINSON MD Ot L97.312 NON-PRS CHRONIC ULCER OF RIGHT ANKLE W F 11/01/2018 SHANI HUTCHINSON MD, Ot L97.522 NON-PRS CHRONIC ULCER OTH PRT LEFT FOOT 11/01/2018 DEANA ALARCON MD Ot D50. 0 IRON DEFICIENCY ANEMIA SECONDARY TO BLOO 11/01/2018 DEANA ALARCON MD, Ot D68. 51 ACTIVATED PROTEIN C RESISTANCE 11/01/2018 DEANA ALARCON MD Ot E66. 01 MORBID (SEVERE) OBESITY DUE TO EXCESS CA 11/01/2018 DEANA ALARCON MD, Ot I82.503 CHRONIC EMBLSM AND THOMBOS UNSP DEEP VEI 11/01/2018 DEANA ALARCON MD Ot K29. 70 GASTRITIS, UNSPECIFIED, WITHOUT BLEEDING 11/01/2018 DEANA ALARCON MD, Ot Z68. 39 BODY MASS INDEX (BMI) 39.0-39.9, ADULT 11/01/2018 DEANA ALARCON MD, Ot Z79. 01 SHELTER (CURRENT) USE OF ANTICOAGULANT 11/01/2018 DEANA ALARCON MD, Ot Z79. 82 PHYSICIAN CHIEF OF PATHOLOGY (CURRENT) USE OF ASPIRIN 11/01/2018 DORIAN LLANOS, DEANA Ot Z79.899 OTHER SHELTER (CURRENT) DRUG THERAPY 11/01/2018 PEDRO HINSON DO Ot K31.8 4 GASTROPARESIS 11/01/2018 SHANI HUTCHINSON MD, Ot D68.51 ACTIVATED PROTEIN C RESISTANCE 11/01/2018 SHANI HUTCHINSON MD, Ot E44 .0 MODERATE PROTEIN-CALORIE MALNUTRITION 11/01/2018 SHANI HUTCHINSON MD, Ot I82.503 CHRONIC EMBLSM AND THOMBOS UNSP DEEP VEI 11/01/2018 SHANI HUTCHINSON MD Ot I87.333 CHRONIC VENOUS HTN W ULCER AND INFLAM OF 11/01/2018 SHANI HUTCHINSON MD, Ot L97.212 NON-PRESSURE CHRONIC ULCER OF RIGHT CALF 11/01/2018 SHANI HUTCHINSON MD Ot L97.222 NON-PRESSURE CHRONIC ULCER OF LEFT CALF 11/01/2018 SHANI HUTCHNISON MD Ot L97.312 NON-PRS CHRONIC ULCER OF RIGHT ANKLE W F 11/01/2018 SHANI HUTCHINSON MD Ot L97.522 NON-PRS CHRONIC ULCER OTH PRT LEFT FOOT 11/01/2018 SHANI HUTCHINSON MD, Ot D68.51 ACTIVATED PROTEIN C RESISTANCE 11/01/2018 SHANI HUTCHINSON MD, Ot E44 .0 MODERATE PROTEIN-CALORIE MALNUTRITION 11/01/2018 SHANI HUTCHINSON MD, Ot I82.503 CHRONIC EMBLSM AND THOMBOS UNSP DEEP VEI 11/01/2018 SHANI HUTCHINSON MD Ot I87.333 CHRONIC VENOUS HTN W ULCER AND INFLAM OF 11/01/2018 SHANI HUTCHINSON MD Ot L97.212 NON-PRESSURE CHRONIC ULCER OF RIGHT CALF 11/01/2018 SHANI HUTCHINSON MD Ot L97.222 NON-PRESSURE CHRONIC ULCER OF LEFT CALF 11/01/2018 SHANI HTUCHINSON MD Ot L97.312 NON-PRS CHRONIC ULCER OF RIGHT ANKLE W F 11/01/2018 SHANI HUTCHINSON MD, Ot L97.522 NON-PRS CHRONIC ULCER OTH PRT LEFT FOOT 11/01/2018 SHANI HUTCHINSON MD, Ot D68.51 ACTIVATED PROTEIN C RESISTANCE 11/01/2018 SHANI HUTCHINSON MD Ot E44 .0 MODERATE PROTEIN-CALORIE MALNUTRITION 11/01/2018 EVANGELINA MD, SHANI G Ot I82.503 CHRONIC EMBLSM AND THOMBOS UNSP DEEP VEI 11/01/2018 SHANI HUTCHINSON MD, Ot I87.333 CHRONIC VENOUS HTN W ULCER AND INFLAM OF 11/01/2018 SHANI HUTCHINSON MD, Ot L97.212 NON-PRESSURE CHRONIC ULCER OF RIGHT CALF 11/01/2018 SHANI HUTCHINSON MD Ot L97.222 NON-PRESSURE CHRONIC ULCER OF LEFT CALF 11/01/2018 SHANI HUTCHINSON MD, Ot L97.312 NON-PRS CHRONIC ULCER OF RIGHT ANKLE W F 11/01/2018 SHANI HUTCHINSON MD, Ot L97.522 NON-PRS CHRONIC ULCER OTH PRT LEFT FOOT 11/01/2018 SHANI HUTCHINSON MD, Ot D68.51 ACTIVATED PROTEIN C RESISTANCE 11/01/2018 SHANI HUTCHINSON MD, Ot E44 .0 MODERATE PROTEIN-CALORIE MALNUTRITION 11/01/2018 SHANI HUTCHINSON MD, Ot I82.503 CHRONIC EMBLSM AND THOMBOS UNSP DEEP VEI 11/01/2018 SHANI HUTCHINSON MD, Ot I87.333 CHRONIC VENOUS HTN W ULCER AND INFLAM OF 11/01/2018 SHANI HUTCHINSON MD Ot L97.212 NON-PRESSURE CHRONIC ULCER OF RIGHT CALF 11/01/2018 SHANI HUTCHINSON MD Ot L97.222 NON-PRESSURE CHRONIC ULCER OF LEFT CALF 11/01/2018 SHANI HUTCHINSON MD, Ot L97.312 NON-PRS CHRONIC ULCER OF RIGHT ANKLE W F 11/01/2018 SHANI HUTCHINSON MD, Ot L97.522 NON-PRS CHRONIC ULCER OTH PRT LEFT FOOT 11/01/2018 SHANI HUTCHINSON MD, Ot D68.51 ACTIVATED PROTEIN C RESISTANCE 11/01/2018 SHANI HUTCHINSON MD, Ot E44 .0 MODERATE PROTEIN-CALORIE MALNUTRITION 11/01/2018 SHANI HUTCHINSON MD, Ot I82.503 CHRONIC EMBLSM AND THOMBOS UNSP DEEP VEI 11/01/2018 SHANI HUTCHINSON MD, Ot I87.333 CHRONIC VENOUS HTN W ULCER AND INFLAM OF 11/01/2018 SHANI HUTCHINSON MD Ot L97.212 NON-PRESSURE CHRONIC ULCER OF RIGHT CALF 11/01/2018 SHANI HUTCHINSON MD Ot L97.222 NON-PRESSURE CHRONIC ULCER OF LEFT CALF 11/01/2018 SHANI HUTCHINSON MD Ot L97.312 NON-PRS CHRONIC ULCER OF RIGHT ANKLE W F 11/01/2018 SHANI HUTCHINSON MD Ot L97.522 NON-PRS CHRONIC ULCER OTH PRT LEFT FOOT 11/01/2018 SHANI HUTCHINSON MD Ot I87.333 CHRONIC VENOUS HTN W ULCER AND INFLAM OF 11/01/2018 SHANI HUTCHINSON MD Ot L97.222 NON-PRESSURE CHRONIC ULCER OF LEFT CALF 11/01/2018 SHANI HUTCHINSON MD, Ot D64 .9 ANEMIA, UNSPECIFIED 11/01/2018 SHANI HUTCHINSON MD, Ot I73 .9 PERIPHERAL VASCULAR DISEASE, UNSPECIFIED 11/01/2018 SHANI HUTCHINSON MD, Ot I82.409 ACUTE EMBOLISM AND THOMBOS UNSP DEEP VN 11/01/2018 SHANI HUTCHINSON MD, Ot L97.229 NON-PRESSURE CHRONIC ULCER OF LEFT CALF 11/01/2018 SHANI HUTCHINSON MD, Ot D68.51 ACTIVATED PROTEIN C RESISTANCE 11/01/2018 SHANI HUTCHINSON MD, Ot E44 .0 MODERATE PROTEIN-CALORIE MALNUTRITION 11/01/2018 SHANI HUTCHINSON MD, Ot I82.503 CHRONIC EMBLSM AND THOMBOS UNSP DEEP VEI 11/01/2018 SHANI HUTCHINSON MD, Ot I87.333 CHRONIC VENOUS HTN W ULCER AND INFLAM OF 11/01/2018 SHANI HUTCHINSON MD, Ot L97.212 NON-PRESSURE CHRONIC ULCER OF RIGHT CALF 11/01/2018 SHANI HUTCHINSON MD Ot L97.222 NON-PRESSURE CHRONIC ULCER OF LEFT CALF 11/01/2018 SHANI HUTCHINSON MD Ot L97.322 NON-PRESSURE CHRONIC ULCER OF LEFT ANKLE 11/01/2018 SHANI HUTCHINSON MD Ot L97.522 NON-PRS CHRONIC ULCER OTH PRT LEFT FOOT 11/01/2018 SHANI HUTCHINSON MD Ot L97.212 NON-PRESSURE CHRONIC ULCER OF RIGHT CALF 11/01/2018 SHANI HUTCHINSON MD Ot L97.222 NON-PRESSURE CHRONIC ULCER OF LEFT CALF 11/01/2018 SHANI HUTCHINSON MD Ot L97.312 NON-PRS CHRONIC ULCER OF RIGHT ANKLE W F 11/01/2018 SHANI HUTCHINSON MD Ot Z86.79 PERSONAL HISTORY OF OTHER DISEASES OF TH 11/01/2018 SHANI HUTCHINSON MD, Ot D68.51 ACTIVATED PROTEIN C RESISTANCE 11/01/2018 EVANGELINA MD, SHANI G Ot I82.503 CHRONIC EMBLSM AND THOMBOS UNSP DEEP VEI 11/01/2018 SHANI HUTCHINSON MD, Ot I87.333 CHRONIC VENOUS HTN W ULCER AND INFLAM OF 11/01/2018 SHANI HUTCHINSON MD, Ot I96 GANGRENE, NOT ELSEWHERE CLASSIFIED 11/01/2018 SHANI HUTCHINSON MD, Ot L97.212 NON-PRESSURE CHRONIC ULCER OF RIGHT CALF 11/01/2018 SHANI HUTCHINSON MD, Ot L97.222 NON-PRESSURE CHRONIC ULCER OF LEFT CALF 11/01/2018 SHANI HUTCHINSON MD, Ot L97.312 NON-PRS CHRONIC ULCER OF RIGHT ANKLE W F 11/01/2018 SHANI HUTCHINSON MD, Ot L97.522 NON-PRS CHRONIC ULCER OTH PRT LEFT FOOT 11/01/2018 SHANI HUTCHINSON MD, Ot D64 .9 ANEMIA, UNSPECIFIED 11/01/2018 SHANI HUTCHINSON MD, Ot I73 .9 PERIPHERAL VASCULAR DISEASE, UNSPECIFIED 11/01/2018 SHANI HUTCHINSON MD, Ot I82.409 ACUTE EMBOLISM AND THOMBOS UNSP DEEP VN 11/01/2018 SHANI HUTCHINSON MD, Ot L97.222 NON-PRESSURE CHRONIC ULCER OF LEFT CALF 11/01/2018 SHANI HUTCHINSON MD, Ot M19.90 UNSPECIFIED OSTEOARTHRITIS, UNSPECIFIED 11/01/2018 SHANI HUTCHINSON MD, Ot D64 .9 ANEMIA, UNSPECIFIED 11/01/2018 SHANI HUTCHINSON MD, Ot I73 .9 PERIPHERAL VASCULAR DISEASE, UNSPECIFIED 11/01/2018 SHANI HUTCHINSON MD, Ot I82.503 CHRONIC EMBLSM AND THOMBOS UNSP DEEP VEI 11/01/2018 SHANI HUTCHINSON MD Ot S81.801A UNSPECIFIED OPEN WOUND, RIGHT LOWER LEG, 11/01/2018 SHANI HUTCHINSON MD, Ot S81.802A UNSPECIFIED OPEN WOUND, LEFT LOWER LEG, 11/01/2018 SHANI HUTCHINSON MD, Ot S91.001A UNSPECIFIED OPEN WOUND, RIGHT ANKLE, INI 11/01/2018 SHANI HUTCHINSON MD, Ot S91.105A UNSP OPN WND LEFT LESSER TOE(S) W/O STEPHANE 11/01/2018 MARY PERSAUD APRN Ot L97.218 NON-PRESSURE CHRONIC ULCER OF RIGHT CALF 11/01/2018 SHANI HUTCHINSON MD, Ot D68.51 ACTIVATED PROTEIN C RESISTANCE 11/01/2018 SHANI HUTCHINSON MD Ot I82.503 CHRONIC EMBLSM AND THOMBOS UNSP DEEP VEI 11/01/2018 SHANI HUTCHINSON MD Ot I87.333 CHRONIC VENOUS HTN W ULCER AND INFLAM OF 11/01/2018 SHANI HUTCHINSON MD Ot I96 GANGRENE, NOT ELSEWHERE CLASSIFIED 11/01/2018 SHANI HUTCHINSON MD Ot L97.212 NON-PRESSURE CHRONIC ULCER OF RIGHT CALF 11/01/2018 SHANI HUTCHINSON MD Ot L97.222 NON-PRESSURE CHRONIC ULCER OF LEFT CALF 11/01/2018 SHANI HUTCHINSON MD Ot L97.312 NON-PRS CHRONIC ULCER OF RIGHT ANKLE W F 11/01/2018 SHANI HUTCHINSON MD Ot L97.522 NON-PRS CHRONIC ULCER OTH PRT LEFT FOOT 11/01/2018 SHANI HUTCHINSON MD, Ot D68.51 ACTIVATED PROTEIN C RESISTANCE 11/01/2018 SHANI HUTCHINSON MD Ot I82.503 CHRONIC EMBLSM AND THOMBOS UNSP DEEP VEI 11/01/2018 SHANI HUTCHINSON MD Ot I87.333 CHRONIC VENOUS HTN W ULCER AND INFLAM OF 11/01/2018 SHANI HUTCHINSON MD Ot I89 .0 LYMPHEDEMA, NOT ELSEWHERE CLASSIFIED 11/01/2018 SHANI HUTCHINSON MD Ot I96 GANGRENE, NOT ELSEWHERE CLASSIFIED 11/01/2018 SHANI HUTCHINSON MD Ot L97.212 NON-PRESSURE CHRONIC ULCER OF RIGHT CALF 11/01/2018 SHANI HUTCHINSON MD Ot L97.222 NON-PRESSURE CHRONIC ULCER OF LEFT CALF 11/01/2018 SHANI HUTCHINSON MD Ot L97.312 NON-PRS CHRONIC ULCER OF RIGHT ANKLE W F 11/01/2018 SHANI HUTCHINSON MD Ot L97.522 NON-PRS CHRONIC ULCER OTH PRT LEFT FOOT 11/01/2018 SHANI HUTCHINSON MD Ot D68.51 ACTIVATED PROTEIN C RESISTANCE 11/01/2018 SHANI HUTCHINSON MD Ot I82.503 CHRONIC EMBLSM AND THOMBOS UNSP DEEP VEI 11/01/2018 SHANI HUTCHINSON MD Ot I87.323 CHRONIC VENOUS HTN W INFLAMMATION OF LONG 11/01/2018 SHANI HUTCHINSON MD Ot I89 .0 LYMPHEDEMA, NOT ELSEWHERE CLASSIFIED 11/01/2018 SHANI HUTCHINSON MD Ot I96 GANGRENE, NOT ELSEWHERE CLASSIFIED 11/01/2018 SHANI HUTCHINSON MD, Ot L97.212 NON-PRESSURE CHRONIC ULCER OF RIGHT CALF 11/01/2018 SHANI HUTCHINSON MD Ot L97.222 NON-PRESSURE CHRONIC ULCER OF LEFT CALF 11/01/2018 SHANI HUTCHINSON MD Ot L97.312 NON-PRS CHRONIC ULCER OF RIGHT ANKLE W F 11/01/2018 SHANI HUTCHINSON MD Ot L97.522 NON-PRS CHRONIC ULCER OTH PRT LEFT FOOT 11/01/2018 SHANI HUTCHINSON MD, Ot D68.51 ACTIVATED PROTEIN C RESISTANCE 11/01/2018 SHANI HUTCHINSON MD, Ot I82.503 CHRONIC EMBLSM AND THOMBOS UNSP DEEP VEI 11/01/2018 SHANI HUTCHINSON MD, Ot I87.333 CHRONIC VENOUS HTN W ULCER AND INFLAM OF 11/01/2018 SHANI HUTCHINSON MD, Ot I89 .0 LYMPHEDEMA, NOT ELSEWHERE CLASSIFIED 11/01/2018 SHANI HUTCHINSON MD, Ot I96 GANGRENE, NOT ELSEWHERE CLASSIFIED 11/01/2018 SHANI HUTCHINSON MD Ot L97.212 NON-PRESSURE CHRONIC ULCER OF RIGHT CALF 11/01/2018 SHANI HUTCHINSON MD Ot L97.222 NON-PRESSURE CHRONIC ULCER OF LEFT CALF 11/01/2018 SHANI HUTCHINSON MD, Ot L97.312 NON-PRS CHRONIC ULCER OF RIGHT ANKLE W F 11/01/2018 SHANI HUTCHINSON MD, Ot L97.522 NON-PRS CHRONIC ULCER OTH PRT LEFT FOOT 11/01/2018 SHANI HUTCHINSON MD, Ot D68.51 ACTIVATED PROTEIN C RESISTANCE 11/01/2018 SHANI HUTCHINSON MD, Ot I82.503 CHRONIC EMBLSM AND THOMBOS UNSP DEEP VEI 11/01/2018 SHANI HUTCHINSON MD, Ot I87.333 CHRONIC VENOUS HTN W ULCER AND INFLAM OF 11/01/2018 SHANI HUTCHINSON MD, Ot I89 .0 LYMPHEDEMA, NOT ELSEWHERE CLASSIFIED 11/01/2018 SHANI HUTCHINSON MD, Ot I96 GANGRENE, NOT ELSEWHERE CLASSIFIED 11/01/2018 SHANI HUTCHINSON MD Ot L97.212 NON-PRESSURE CHRONIC ULCER OF RIGHT CALF 11/01/2018 SHANI HUTCHINSON MD Ot L97.222 NON-PRESSURE CHRONIC ULCER OF LEFT CALF 11/01/2018 SHANI HUTCHINSON MD, Ot L97.312 NON-PRS CHRONIC ULCER OF RIGHT ANKLE W F 11/01/2018 SHANI HUTCHINSON MD Ot L97.522 NON-PRS CHRONIC ULCER OTH PRT LEFT FOOT 11/03/2018 SHANI HUCTHINSON MD Ot L97.222 NON-PRESSURE CHRONIC ULCER OF LEFT CALF 11/04/2018 SHANI HUTCHINSON MD Ot E44 .1 MILD PROTEIN-CALORIE MALNUTRITION 11/11/2018 SHANI HUTCHINSON MD, Ot D68.51 ACTIVATED PROTEIN C RESISTANCE 11/11/2018 SHANI HUTCHINSON MD Ot I82.503 CHRONIC EMBLSM AND THOMBOS UNSP DEEP VEI 11/11/2018 SHANI HUTCHINSON MD, Ot I87.333 CHRONIC VENOUS HTN W ULCER AND INFLAM OF 11/11/2018 SHANI HUTCHINSON MD, Ot I89 .0 LYMPHEDEMA, NOT ELSEWHERE CLASSIFIED 11/11/2018 SHANI HUTCHINSON MD, Ot I96 GANGRENE, NOT ELSEWHERE CLASSIFIED 11/11/2018 SHANI HUTCHINSON MD, Ot L97.212 NON-PRESSURE CHRONIC ULCER OF RIGHT CALF 11/11/2018 SHANI HUTCHINSON MD Ot L97.222 NON-PRESSURE CHRONIC ULCER OF LEFT CALF 11/11/2018 SHANI HUTCHINSON MD Ot L97.312 NON-PRS CHRONIC ULCER OF RIGHT ANKLE W F 11/11/2018 SHANI HUTCHINSON MD, Ot L97.522 NON-PRS CHRONIC ULCER OTH PRT LEFT FOOT 11/12/2018 MARY PERSAUD APRN Ot D68.51 ACTIVATED PROTEIN C RESISTANCE 11/12/2018 MARY PERSAUD APRN Ot I82.503 CHRONIC EMBLSM AND THOMBOS UNSP DEEP VEI 11/12/2018 MARY PERSAUD APRN Ot I87.333 CHRONIC VENOUS HTN W ULCER AND INFLAM OF 11/12/2018 MARY PERSAUD APRN Ot I89.0 LYMPHEDEMA, NOT ELSEWHERE CLASSIFIED 11/12/2018 MARY PERSAUD APRN Ot I 96 GANGRENE, NOT ELSEWHERE CLASSIFIED 11/12/2018 MARY PERSAUD APRN Ot L97.212 NON-PRESSURE CHRONIC ULCER OF RIGHT CALF 11/12/2018 MARY PERSAUD APRN Ot L97.222 NON-PRESSURE CHRONIC ULCER OF LEFT CALF 11/12/2018 MARY PERSAUD APRN Ot L97.312 NON-PRS CHRONIC ULCER OF RIGHT ANKLE W F 11/12/2018 MARY PERSAUD ALLIE Ot L97.522 NON-PRS CHRONIC ULCER OTH PRT LEFT FOOT 11/15/2018 DEANA ALARCON MD, Ot D50. 0 IRON DEFICIENCY ANEMIA SECONDARY TO BLOO 11/15/2018 DEANA ALARCON MD, Ot D68. 51 ACTIVATED PROTEIN C RESISTANCE 11/15/2018 DEANA ALARCON MD, Ot E66. 01 MORBID (SEVERE) OBESITY DUE TO EXCESS CA 11/15/2018 DEANA ALARCON MD, Ot I82.503 CHRONIC EMBLSM AND THOMBOS UNSP DEEP VEI 11/15/2018 DEANA ALARCON MD Ot K29. 70 GASTRITIS, UNSPECIFIED, WITHOUT BLEEDING 11/15/2018 DEANA ALARCON MD, Ot Z68. 39 BODY MASS INDEX (BMI) 39.0-39.9, ADULT 11/15/2018 DEANA ALARCON MD, Ot Z79. 01 PHYSICIAN CHIEF OF PATHOLOGY (CURRENT) USE OF ANTICOAGULANT 11/15/2018 DEANA ALARCON MD, Ot Z79. 82 PHYSICIAN CHIEF OF PATHOLOGY (CURRENT) USE OF ASPIRIN 11/15/2018 DEANA ALARCON MD, Ot Z79.899 OTHER PHYSICIAN CHIEF OF PATHOLOGY (CURRENT) DRUG THERAPY 11/16/2018 SHANI HUTCHINSON MD, Ot D68.51 ACTIVATED PROTEIN C RESISTANCE 11/16/2018 SHANI HUTCHINSON MD, Ot I82.503 CHRONIC EMBLSM AND THOMBOS UNSP DEEP VEI 11/16/2018 SHANI HUTCHINSON MD, Ot I87.333 CHRONIC VENOUS HTN W ULCER AND INFLAM OF 11/16/2018 SHANI HUTCHNISON MD, Ot I89 .0 LYMPHEDEMA, NOT ELSEWHERE CLASSIFIED 11/16/2018 SHANI HUTCHINSON MD Ot I96 GANGRENE, NOT ELSEWHERE CLASSIFIED 11/16/2018 SHANI HUTCHINSON MD, Ot L97.212 NON-PRESSURE CHRONIC ULCER OF RIGHT CALF 11/16/2018 SHANI HUTCHINSON MD, Ot L97.222 NON-PRESSURE CHRONIC ULCER OF LEFT CALF 11/16/2018 SHANI HUTCHINSON MD, Ot L97.312 NON-PRS CHRONIC ULCER OF RIGHT ANKLE W F 11/16/2018 SHANI HUTCHINSON MD, Ot L97.522 NON-PRS CHRONIC ULCER OTH PRT LEFT FOOT 11/18/2018 EVANGELINA MD, SHANI G Ot D68.51 ACTIVATED PROTEIN C RESISTANCE 11/18/2018 SHANI HUTCHINSON MD, Ot I82.503 CHRONIC EMBLSM AND THOMBOS UNSP DEEP VEI 11/18/2018 SHANI HUTCHINSON MD Ot I89 .0 LYMPHEDEMA, NOT ELSEWHERE CLASSIFIED 11/18/2018 SHANI HUTCHINSON MD Ot I96 GANGRENE, NOT ELSEWHERE CLASSIFIED 11/18/2018 SHANI HUTCHINSON MD Ot L97.212 NON-PRESSURE CHRONIC ULCER OF RIGHT CALF 11/18/2018 SHANI HUTCHINSON MD Ot L97.222 NON-PRESSURE CHRONIC ULCER OF LEFT CALF 11/18/2018 SHANI HUTCHINSON MD Ot L97.312 NON-PRS CHRONIC ULCER OF RIGHT ANKLE W F 11/18/2018 SHANI HUTCHINSON MD Ot L97.522 NON-PRS CHRONIC ULCER OTH PRT LEFT FOOT 11/24/2018 SHANI HUTCHINSON MD, Ot D68.51 ACTIVATED PROTEIN C RESISTANCE 11/24/2018 SHANI HUTCHINSON MD Ot I82.503 CHRONIC EMBLSM AND THOMBOS UNSP DEEP VEI 11/24/2018 SHANI HUTCHINSON MD Ot I87.333 CHRONIC VENOUS HTN W ULCER AND INFLAM OF 11/24/2018 SHANI HUTCHINSON MD Ot I89 .0 LYMPHEDEMA, NOT ELSEWHERE CLASSIFIED 11/24/2018 SHANI HUTCHINSON MD Ot I96 GANGRENE, NOT ELSEWHERE CLASSIFIED 11/24/2018 SHANI HUTCHINSON MD Ot L97.212 NON-PRESSURE CHRONIC ULCER OF RIGHT CALF 11/24/2018 SHANI HUTCHINSON MD Ot L97.222 NON-PRESSURE CHRONIC ULCER OF LEFT CALF 11/24/2018 SHANI HUTCHINSON MD Ot L97.312 NON-PRS CHRONIC ULCER OF RIGHT ANKLE W F 11/24/2018 SHANI HUTCHINSON MD Ot L97.522 NON-PRS CHRONIC ULCER OTH PRT LEFT FOOT 11/30/2018 SHANI HUTCHINSON MD, Ot D68.51 ACTIVATED PROTEIN C RESISTANCE 11/30/2018 SHANI HUTCHINSON MD Ot I82.503 CHRONIC EMBLSM AND THOMBOS UNSP DEEP VEI 11/30/2018 SHANI HUTCHINSON MD Ot I87.333 CHRONIC VENOUS HTN W ULCER AND INFLAM OF 11/30/2018 SHANI HUTCHINSON MD Ot I89 .0 LYMPHEDEMA, NOT ELSEWHERE CLASSIFIED 11/30/2018 EVANGELINA MD, SHANI G Ot I96 GANGRENE, NOT ELSEWHERE CLASSIFIED 11/30/2018 SHANI HUTCHINSON MD Ot L97.212 NON-PRESSURE CHRONIC ULCER OF RIGHT CALF 11/30/2018 SHANI HUTCHINSON MD Ot L97.222 NON-PRESSURE CHRONIC ULCER OF LEFT CALF 11/30/2018 SHANI HUTCHINSON MD, Ot L97.312 NON-PRS CHRONIC ULCER OF RIGHT ANKLE W F 11/30/2018 SHANI HUTCHINSON MD Ot L97.522 NON-PRS CHRONIC ULCER OTH PRT LEFT FOOT 11/30/2018 SHANI HUTCHINSON MD, Ot D68.51 ACTIVATED PROTEIN C RESISTANCE 11/30/2018 SHANI HUTCHINSON MD Ot I82.503 CHRONIC EMBLSM AND THOMBOS UNSP DEEP VEI 11/30/2018 SHANI HUTCHINSON MD, Ot I87.333 CHRONIC VENOUS HTN W ULCER AND INFLAM OF 11/30/2018 SHANI HUTCHINSON MD, Ot I89 .0 LYMPHEDEMA, NOT ELSEWHERE CLASSIFIED 11/30/2018 SHANI HUTCHINSON MD, Ot I96 GANGRENE, NOT ELSEWHERE CLASSIFIED 11/30/2018 SHANI HUTCHINSON MD Ot L97.212 NON-PRESSURE CHRONIC ULCER OF RIGHT CALF 11/30/2018 SHANI HUTCHINSON MD Ot L97.222 NON-PRESSURE CHRONIC ULCER OF LEFT CALF 11/30/2018 SHANI HUTCHINSON MD Ot L97.312 NON-PRS CHRONIC ULCER OF RIGHT ANKLE W F 11/30/2018 SHANI HUTCHINSON MD Ot L97.522 NON-PRS CHRONIC ULCER OTH PRT LEFT FOOT 12/01/2018 SHANI HUTCHINSON MD, Ot D68.51 ACTIVATED PROTEIN C RESISTANCE 12/01/2018 SHANI HUTCHINSON MD, Ot I82.503 CHRONIC EMBLSM AND THOMBOS UNSP DEEP VEI 12/01/2018 SHANI HUTCHINSON MD Ot I87.333 CHRONIC VENOUS HTN W ULCER AND INFLAM OF 12/01/2018 SHANI HUTCHINSON MD, Ot I89 .0 LYMPHEDEMA, NOT ELSEWHERE CLASSIFIED 12/01/2018 SHANI HUTCHINSON MD Ot I96 GANGRENE, NOT ELSEWHERE CLASSIFIED 12/01/2018 SHANI HUTCHINSON MD Ot L97.212 NON-PRESSURE CHRONIC ULCER OF RIGHT CALF 12/01/2018 SHANI HUTCHINSON MD Ot L97.222 NON-PRESSURE CHRONIC ULCER OF LEFT CALF 12/01/2018 SHANI HUTCHINSON MD Ot L97.312 NON-PRS CHRONIC ULCER OF RIGHT ANKLE W F 12/01/2018 SHANI HUTCHINSON MD Ot L97.522 NON-PRS CHRONIC ULCER OTH PRT LEFT FOOT 12/02/2018 SHANI HUTCHINSON MD, Ot D68.51 ACTIVATED PROTEIN C RESISTANCE 12/02/2018 SHANI HUTCHINSON MD Ot I82.503 CHRONIC EMBLSM AND THOMBOS UNSP DEEP VEI 12/02/2018 SHANI HUTCHINSON MD Ot I87.333 CHRONIC VENOUS HTN W ULCER AND INFLAM OF 12/02/2018 SHANI HUTCHINSON MD, Ot I89 .0 LYMPHEDEMA, NOT ELSEWHERE CLASSIFIED 12/02/2018 SHANI HUTCHINSON MD, Ot I96 GANGRENE, NOT ELSEWHERE CLASSIFIED 12/02/2018 SHANI HUTCHINSON MD Ot L97.212 NON-PRESSURE CHRONIC ULCER OF RIGHT CALF 12/02/2018 SHANI HUTCHINSON MD Ot L97.222 NON-PRESSURE CHRONIC ULCER OF LEFT CALF 12/02/2018 SHANI HUTCHINSON MD Ot L97.312 NON-PRS CHRONIC ULCER OF RIGHT ANKLE W F 12/02/2018 SHANI HUTCHINSON MD Ot L97.522 NON-PRS CHRONIC ULCER OTH PRT LEFT FOOT 12/05/2018 SHANI HUTCHINSON MD, Ot D68.51 ACTIVATED PROTEIN C RESISTANCE 12/05/2018 SHANI HUTCHINSON MD, Ot I82.503 CHRONIC EMBLSM AND THOMBOS UNSP DEEP VEI 12/05/2018 SHANI HUTCHINSON MD, Ot I87.333 CHRONIC VENOUS HTN W ULCER AND INFLAM OF 12/05/2018 SHANI HUTCHINSON MD, Ot I89 .0 LYMPHEDEMA, NOT ELSEWHERE CLASSIFIED 12/05/2018 SHANI HUTCHINSON MD Ot I96 GANGRENE, NOT ELSEWHERE CLASSIFIED 12/05/2018 SHANI HUTCHINSON MD Ot L97.212 NON-PRESSURE CHRONIC ULCER OF RIGHT CALF 12/05/2018 SHANI HUTCHINSON MD Ot L97.222 NON-PRESSURE CHRONIC ULCER OF LEFT CALF 12/05/2018 SHANI HUTCHINSON MD Ot L97.312 NON-PRS CHRONIC ULCER OF RIGHT ANKLE W F 12/05/2018 SHANI HUTCHINSON MD Ot L97.522 NON-PRS CHRONIC ULCER OTH PRT LEFT FOOT 12/07/2018 SHANI HUTCHINSON MD, Ot D68.51 ACTIVATED PROTEIN C RESISTANCE 12/07/2018 SHANI HUTCHINSON MD, Ot E44 .1 MILD PROTEIN-CALORIE MALNUTRITION 12/07/2018 SHANI HUTCHINSON MD, Ot I82.503 CHRONIC EMBLSM AND THOMBOS UNSP DEEP VEI 12/07/2018 SHANI HUTCHINSON MD, Ot I87.333 CHRONIC VENOUS HTN W ULCER AND INFLAM OF 12/07/2018 SHANI HUTCHINSON MD, Ot I89 .0 LYMPHEDEMA, NOT ELSEWHERE CLASSIFIED 12/07/2018 SHANI HUTCHINSON MD Ot L97.212 NON-PRESSURE CHRONIC ULCER OF RIGHT CALF 12/07/2018 SHANI HUTCHINSON MD Ot L97.222 NON-PRESSURE CHRONIC ULCER OF LEFT CALF 12/07/2018 SHANI HUTCHINSON MD, Ot L97.312 NON-PRS CHRONIC ULCER OF RIGHT ANKLE W F 12/07/2018 SHANI HUTCHINSON MD, Ot L97.522 NON-PRS CHRONIC ULCER OTH PRT LEFT FOOT 12/09/2018 SHANI HUTCHINSON MD, Ot D68.51 ACTIVATED PROTEIN C RESISTANCE 12/09/2018 SHANI HUTCHINSON MD, Ot I82.503 CHRONIC EMBLSM AND THOMBOS UNSP DEEP VEI 12/09/2018 SHANI HUTCHINSON MD, Ot I87.333 CHRONIC VENOUS HTN W ULCER AND INFLAM OF 12/09/2018 SHANI HUTCHINSON MD, Ot I89 .0 LYMPHEDEMA, NOT ELSEWHERE CLASSIFIED 12/09/2018 SHANI HUTCHINSON MD Ot I96 GANGRENE, NOT ELSEWHERE CLASSIFIED 12/09/2018 SHANI HUTCHINSON MD Ot L97.212 NON-PRESSURE CHRONIC ULCER OF RIGHT CALF 12/09/2018 SHANI HUTCHINSON MD Ot L97.222 NON-PRESSURE CHRONIC ULCER OF LEFT CALF 12/09/2018 SHANI HUTCHINSON MD Ot L97.312 NON-PRS CHRONIC ULCER OF RIGHT ANKLE W F 12/09/2018 SHANI HUTCHINSON MD, Ot L97.522 NON-PRS CHRONIC ULCER OTH PRT LEFT FOOT 12/09/2018 SHANI HUTCHINSON MD, Ot D68.51 ACTIVATED PROTEIN C RESISTANCE 12/09/2018 SHANI HUTCHINSON MD, Ot I82.503 CHRONIC EMBLSM AND THOMBOS UNSP DEEP VEI 12/09/2018 SHANI HUTCHINSON MD, Ot I87.333 CHRONIC VENOUS HTN W ULCER AND INFLAM OF 12/09/2018 SHANI HUTCHINSON MD Ot I89 .0 LYMPHEDEMA, NOT ELSEWHERE CLASSIFIED 12/09/2018 SHAIN HUTCHINSON MD Ot I96 GANGRENE, NOT ELSEWHERE CLASSIFIED 12/09/2018 SHANI HUTCHINSON MD, Ot L97.212 NON-PRESSURE CHRONIC ULCER OF RIGHT CALF 12/09/2018 SHANI HUTCHINSON MD Ot L97.222 NON-PRESSURE CHRONIC ULCER OF LEFT CALF 12/09/2018 SHANI HUTCHINSON MD Ot L97.312 NON-PRS CHRONIC ULCER OF RIGHT ANKLE W F 12/09/2018 SHANI HUTCHINSON MD Ot L97.522 NON-PRS CHRONIC ULCER OTH PRT LEFT FOOT 12/15/2018 SHANI HUTCHINSON MD, Ot D68.51 ACTIVATED PROTEIN C RESISTANCE 12/15/2018 SHANI HUTCHINSON MD, Ot I82.503 CHRONIC EMBLSM AND THOMBOS UNSP DEEP VEI 12/15/2018 SHANI HUTCHINSON MD Ot I87.333 CHRONIC VENOUS HTN W ULCER AND INFLAM OF 12/15/2018 SHANI HUTCHINSON MD, Ot I89 .0 LYMPHEDEMA, NOT ELSEWHERE CLASSIFIED 12/15/2018 SHANI HUTCHINSON MD Ot I96 GANGRENE, NOT ELSEWHERE CLASSIFIED 12/15/2018 SHANI HUTCHINSON MD Ot L97.212 NON-PRESSURE CHRONIC ULCER OF RIGHT CALF 12/15/2018 SHANI HUTCHINSON MD Ot L97.222 NON-PRESSURE CHRONIC ULCER OF LEFT CALF 12/15/2018 SHANI HUTCHINSON MD Ot L97.312 NON-PRS CHRONIC ULCER OF RIGHT ANKLE W F 12/15/2018 SHANI HUTCHINSON MD Ot L97.522 NON-PRS CHRONIC ULCER OTH PRT LEFT FOOT 12/16/2018 SHANI HUTCHINSON MD, Ot D68.51 ACTIVATED PROTEIN C RESISTANCE 12/16/2018 SHANI HUTCHINSON MD Ot I82.503 CHRONIC EMBLSM AND THOMBOS UNSP DEEP VEI 12/16/2018 SHANI HUTCHINSON MD, Ot I87.333 CHRONIC VENOUS HTN W ULCER AND INFLAM OF 12/16/2018 SHANI HUTCHINSON MD Ot I89 .0 LYMPHEDEMA, NOT ELSEWHERE CLASSIFIED 12/16/2018 SHANI HUTCHINSON MD Ot I96 GANGRENE, NOT ELSEWHERE CLASSIFIED 12/16/2018 SHANI HUTCHINSON MD Ot L97.212 NON-PRESSURE CHRONIC ULCER OF RIGHT CALF 12/16/2018 SHANI HUTCHINSON MD Ot L97.222 NON-PRESSURE CHRONIC ULCER OF LEFT CALF 12/16/2018 SHANI HUTCHINSON MD, Ot L97.312 NON-PRS CHRONIC ULCER OF RIGHT ANKLE W F 12/16/2018 SHANI HUTCHINSON MD Ot L97.522 NON-PRS CHRONIC ULCER OTH PRT LEFT FOOT 12/16/2018 SHANI HUTCHINSON MD, Ot D68.51 ACTIVATED PROTEIN C RESISTANCE 12/16/2018 SHANI HUTCHINSON MD Ot I82.503 CHRONIC EMBLSM AND THOMBOS UNSP DEEP VEI 12/16/2018 SHANI HUTCHINSON MD, Ot I87.333 CHRONIC VENOUS HTN W ULCER AND INFLAM OF 12/16/2018 SHANI HUTCHINSON MD, Ot I89 .0 LYMPHEDEMA, NOT ELSEWHERE CLASSIFIED 12/16/2018 SHANI HUTCHINSON MD, Ot I96 GANGRENE, NOT ELSEWHERE CLASSIFIED 12/16/2018 SHANI HUTCHINSON MD, Ot L97.212 NON-PRESSURE CHRONIC ULCER OF RIGHT CALF 12/16/2018 SHANI HUTCHINSON MD, Ot L97.222 NON-PRESSURE CHRONIC ULCER OF LEFT CALF 12/16/2018 SHANI HUTCHINSON MD, Ot L97.312 NON-PRS CHRONIC ULCER OF RIGHT ANKLE W F 12/16/2018 SHANI HUTCHINSON MD, Ot L97.522 NON-PRS CHRONIC ULCER OTH PRT LEFT FOOT 12/16/2018 SHANI HUTCHINSON MD, Ot D68.51 ACTIVATED PROTEIN C RESISTANCE 12/16/2018 SHANI HUTCHINSON MD Ot E44 .1 MILD PROTEIN-CALORIE MALNUTRITION 12/16/2018 SHANI HUTCHINSON MD, Ot I82.503 CHRONIC EMBLSM AND THOMBOS UNSP DEEP VEI 12/16/2018 SHANI HUTCHINSON MD, Ot I87.333 CHRONIC VENOUS HTN W ULCER AND INFLAM OF 12/16/2018 SHANI HUTCHINSON MD, Ot I89 .0 LYMPHEDEMA, NOT ELSEWHERE CLASSIFIED 12/16/2018 SHANI HUTCHINSON MD, Ot L97.212 NON-PRESSURE CHRONIC ULCER OF RIGHT CALF 12/16/2018 SHANI HUTCHINSON MD Ot L97.222 NON-PRESSURE CHRONIC ULCER OF LEFT CALF 12/16/2018 SHANI HUTCHINSON MD Ot L97.312 NON-PRS CHRONIC ULCER OF RIGHT ANKLE W F 12/16/2018 SHANI HUTCHINSON MD, Ot L97.522 NON-PRS CHRONIC ULCER OTH PRT LEFT FOOT 12/16/2018 DEANA ALARCON MD Ot D50. 0 IRON DEFICIENCY ANEMIA SECONDARY TO BLOO 12/16/2018 DEANA ALARCON MD, Ot D68. 51 ACTIVATED PROTEIN C RESISTANCE 12/16/2018 DEANA ALARCON MD Ot E66. 01 MORBID (SEVERE) OBESITY DUE TO EXCESS CA 12/16/2018 DEANA ALARCON MD Ot I82.503 CHRONIC EMBLSM AND THOMBOS UNSP DEEP VEI 12/16/2018 DEANA ALARCON MD Ot K29. 70 GASTRITIS, UNSPECIFIED, WITHOUT BLEEDING 12/16/2018 DEANA ALARCON MD, Ot Z68. 39 BODY MASS INDEX (BMI) 39.0-39.9, ADULT 12/16/2018 DEANA ALARCON MD, Ot Z79. 01 SHELTER (CURRENT) USE OF ANTICOAGULANT 12/16/2018 DEANA ALARCON MD, Ot Z79. 82 PHYSICIAN CHIEF OF PATHOLOGY (CURRENT) USE OF ASPIRIN 12/16/2018 DEANA ALARCON MD, Ot Z79.899 OTHER PHYSICIAN CHIEF OF PATHOLOGY (CURRENT) DRUG THERAPY 12/22/2018 MARY PERSAUD APRN Ot D68.51 ACTIVATED PROTEIN C RESISTANCE 12/22/2018 MARY PERSAUD APRN Ot I82.503 CHRONIC EMBLSM AND THOMBOS UNSP DEEP VEI 12/22/2018 MARY PERSAUD [employer] Ot I87.333 CHRONIC VENOUS HTN W ULCER AND INFLAM OF 12/22/2018 MARY PERSAUD APRN Ot I89.0 LYMPHEDEMA, NOT ELSEWHERE CLASSIFIED 12/22/2018 MARY PERSAUD [employer] Ot I 96 GANGRENE, NOT ELSEWHERE CLASSIFIED 12/22/2018 MARY PERSAUD [employer] Ot L97.212 NON-PRESSURE CHRONIC ULCER OF RIGHT CALF 12/22/2018 MARY PERSAUD [employer] Ot L97.222 NON-PRESSURE CHRONIC ULCER OF LEFT CALF 12/22/2018 MARY PERSAUD [employer] ASSIST[employer] Ot L97.312 NON-PRS CHRONIC ULCER OF RIGHT ANKLE W F 12/22/2018 MARY PERSAUD PROMOTIONS ASSISTANT [employer] Ot L97.522 NON-PRS CHRONIC ULCER OTH PRT LEFT FOOT 12/22/2018 SHANI HUTCHINSON MD, Ot D68.51 ACTIVATED PROTEIN C RESISTANCE 12/22/2018 EVANGELINA MD, SHANI G Ot I82.503 CHRONIC EMBLSM AND THOMBOS UNSP DEEP VEI 12/22/2018 SHANI HUTCHINSON MD, Ot I87.333 CHRONIC VENOUS HTN W ULCER AND INFLAM OF 12/22/2018 SHANI HUTCHINSON MD, Ot I89 .0 LYMPHEDEMA, NOT ELSEWHERE CLASSIFIED 12/22/2018 SHANI HUTCHINSON MD Ot I96 GANGRENE, NOT ELSEWHERE CLASSIFIED 12/22/2018 SHANI HUTCHINSON MD Ot L97.212 NON-PRESSURE CHRONIC ULCER OF RIGHT CALF 12/22/2018 SHANI HUTCHINSON MD Ot L97.222 NON-PRESSURE CHRONIC ULCER OF LEFT CALF 12/22/2018 SHANI HUTCHINSON MD Ot L97.312 NON-PRS CHRONIC ULCER OF RIGHT ANKLE W F 12/22/2018 SHANI HUTCHINSON MD Ot L97.522 NON-PRS CHRONIC ULCER OTH PRT LEFT FOOT 12/22/2018 SHANI HUTCHINSON MD Ot D68.51 ACTIVATED PROTEIN C RESISTANCE 12/22/2018 SHANI HUTCHINSON MD, Ot I82.503 CHRONIC EMBLSM AND THOMBOS UNSP DEEP VEI 12/22/2018 SHANI HUTCHINSON MD, Ot I87.333 CHRONIC VENOUS HTN W ULCER AND INFLAM OF 12/22/2018 SHANI HUTCHINSON MD, Ot I89 .0 LYMPHEDEMA, NOT ELSEWHERE CLASSIFIED 12/22/2018 SHANI HUTCHINSON MD Ot I96 GANGRENE, NOT ELSEWHERE CLASSIFIED 12/22/2018 SHANI HUTCHINSON MD Ot L97.212 NON-PRESSURE CHRONIC ULCER OF RIGHT CALF 12/22/2018 SHANI HUTCHINSON MD Ot L97.222 NON-PRESSURE CHRONIC ULCER OF LEFT CALF 12/22/2018 SHANI HUTCHINSON MD Ot L97.312 NON-PRS CHRONIC ULCER OF RIGHT ANKLE W F 12/22/2018 SHANI HUTCHINSON MD Ot L97.522 NON-PRS CHRONIC ULCER OTH PRT LEFT FOOT 12/22/2018 SHANI HUTCHINSON MD Ot D68.51 ACTIVATED PROTEIN C RESISTANCE 12/22/2018 SHANI HUTCHINSON MD Ot I82.503 CHRONIC EMBLSM AND THOMBOS UNSP DEEP VEI 12/22/2018 SHANI HUTCHINSON MD Ot I87.333 CHRONIC VENOUS HTN W ULCER AND INFLAM OF 12/22/2018 SHANI HUTCHINSON MD Ot I89 .0 LYMPHEDEMA, NOT ELSEWHERE CLASSIFIED 12/22/2018 SHANI HUTCHINSON MD Ot I96 GANGRENE, NOT ELSEWHERE CLASSIFIED 12/22/2018 SHANI HUTCHINSON MD Ot L97.212 NON-PRESSURE CHRONIC ULCER OF RIGHT CALF 12/22/2018 SHANI HUTCHINSON MD Ot L97.222 NON-PRESSURE CHRONIC ULCER OF LEFT CALF 12/22/2018 SHANI HUTCHINSON MD Ot L97.312 NON-PRS CHRONIC ULCER OF RIGHT ANKLE W F 12/22/2018 SHANI HUTCHINSON MD Ot L97.522 NON-PRS CHRONIC ULCER OTH PRT LEFT FOOT 12/23/2018 MARY PERSAUD APRN Ot D68.51 ACTIVATED PROTEIN C RESISTANCE 12/23/2018 MARY PERSAUD APRN Ot I82.503 CHRONIC EMBLSM AND THOMBOS UNSP DEEP VEI 12/23/2018 MARY PERSAUD APRN Ot I87.333 CHRONIC VENOUS HTN W ULCER AND INFLAM OF 12/23/2018 MARY PERSAUD APRN Ot I89.0 LYMPHEDEMA, NOT ELSEWHERE CLASSIFIED 12/23/2018 MARY PERSAUD APRN Ot I 96 GANGRENE, NOT ELSEWHERE CLASSIFIED 12/23/2018 MARY PERSAUD [employer]OMOTIONS ASSISTANT SALES MARKETING Ot L97.212 NON-PRESSURE CHRONIC ULCER OF RIGHT CALF 12/23/2018 MARY PERSAUD PROMOTIONS ASSISTANT SALES MARKETING Ot L97.222 NON-PRESSURE CHRONIC ULCER OF LEFT CALF 12/23/2018 MARY PERSAUD PROMOTIONS ASSISTANT SALES MARKETING Ot L97.312 NON-PRS CHRONIC ULCER OF RIGHT ANKLE W F 12/23/2018 MARY PERSAUD PROMOTIONS ASSISTANT SALES MARKETING Ot L97.522 NON-PRS CHRONIC ULCER OTH PRT LEFT FOOT 12/24/2018 SHANI HUTCHINSON MD Ot D68.51 ACTIVATED PROTEIN C RESISTANCE 12/24/2018 SHANI HUTCHINSON MD Ot I82.503 CHRONIC EMBLSM AND THOMBOS UNSP DEEP VEI 12/24/2018 SHANI HUTCHINSON MD Ot I87.333 CHRONIC VENOUS HTN W ULCER AND INFLAM OF 12/24/2018 SHANI HUTCHINSON MD Ot I89 .0 LYMPHEDEMA, NOT ELSEWHERE CLASSIFIED 12/24/2018 SHANI HUTCHINSON MD Ot I96 GANGRENE, NOT ELSEWHERE CLASSIFIED 12/24/2018 SHANI HUTCHINSON MD Ot L97.212 NON-PRESSURE CHRONIC ULCER OF RIGHT CALF 12/24/2018 SHANI HUTCHINSON MD, Ot L97.222 NON-PRESSURE CHRONIC ULCER OF LEFT CALF 12/24/2018 SHANI HUTCHINSON MD, Ot L97.312 NON-PRS CHRONIC ULCER OF RIGHT ANKLE W F 12/24/2018 SHANI HUTCHINSON MD, Ot L97.522 NON-PRS CHRONIC ULCER OTH PRT LEFT FOOT 12/29/2018 SHANI HUTCHINSON MD, Ot D68.51 ACTIVATED PROTEIN C RESISTANCE 12/29/2018 SHANI HUTCHINSON MD, Ot I82.503 CHRONIC EMBLSM AND THOMBOS UNSP DEEP VEI 12/29/2018 SHANI HUTCHINSON MD, Ot I87.333 CHRONIC VENOUS HTN W ULCER AND INFLAM OF 12/29/2018 SHANI HUTCHINSON MD, Ot I89 .0 LYMPHEDEMA, NOT ELSEWHERE CLASSIFIED 12/29/2018 SHANI HUTCHINSON MD, Ot I96 GANGRENE, NOT ELSEWHERE CLASSIFIED 12/29/2018 SHANI HUTCHINSON MD, Ot L97.212 NON-PRESSURE CHRONIC ULCER OF RIGHT CALF 12/29/2018 SHANI HUTCHINSON MD, Ot L97.222 NON-PRESSURE CHRONIC ULCER OF LEFT CALF 12/29/2018 SHANI HUTCHINSON MD, Ot L97.312 NON-PRS CHRONIC ULCER OF RIGHT ANKLE W F 12/29/2018 SHANI HUTCHINSON MD, Ot L97.522 NON-PRS CHRONIC ULCER OTH PRT LEFT FOOT 12/29/2018 DEANA ALARCON MD, Ot D50. 0 IRON DEFICIENCY ANEMIA SECONDARY TO BLOO 12/29/2018 DEANA ALARCON MD, Ot D68. 51 ACTIVATED PROTEIN C RESISTANCE 12/29/2018 DEANA ALARCON MD, Ot E66. 01 MORBID (SEVERE) OBESITY DUE TO EXCESS CA 12/29/2018 DEANA ALARCON MD, Ot I82.503 CHRONIC EMBLSM AND THOMBOS UNSP DEEP VEI 12/29/2018 DEANA ALARCON MD Ot K29. 70 GASTRITIS, UNSPECIFIED, WITHOUT BLEEDING 12/29/2018 DEANA ALARCON MD, Ot Z68. 39 BODY MASS INDEX (BMI) 39.0-39.9, ADULT 12/29/2018 DEANA ALARCON MD, Ot Z79. 01 PHYSICIAN CHIEF OF PATHOLOGY (CURRENT) USE OF ANTICOAGULANT 12/29/2018 DEANA ALARCON MD, Ot Z79. 82 PHYSICIAN CHIEF OF PATHOLOGY (CURRENT) USE OF ASPIRIN 12/29/2018 DORIAN LLANOS ROLLEMARGE Ot Z79.899 OTHER SHELTER (CURRENT) DRUG THERAPY 12/29/2018 SHANI HUTCHINSON MD, Ot D68.51 ACTIVATED PROTEIN C RESISTANCE 12/29/2018 SHANI HUTCHINSON MD Ot I82.403 ACUTE EMBOLISM AND THOMBOS UNSP DEEP VEI 12/29/2018 SHANI HUTCHINSON MD Ot I87.333 CHRONIC VENOUS HTN W ULCER AND INFLAM OF 12/29/2018 SHANI HUTCHINSON MD Ot I89 .0 LYMPHEDEMA, NOT ELSEWHERE CLASSIFIED 12/29/2018 SHANI HUTCHINSON MD Ot I96 GANGRENE, NOT ELSEWHERE CLASSIFIED 12/29/2018 SHANI HUTCHINSON MD Ot L97.212 NON-PRESSURE CHRONIC ULCER OF RIGHT CALF 12/29/2018 SHANI HUTCHINSON MD Ot L97.222 NON-PRESSURE CHRONIC ULCER OF LEFT CALF 12/29/2018 SHANI HUTCHINSON MD Ot L97.312 NON-PRS CHRONIC ULCER OF RIGHT ANKLE W F 12/29/2018 SHANI HUTCHINSON MD Ot L97.522 NON-PRS CHRONIC ULCER OTH PRT LEFT FOOT 01/10/2019 SHANI HUTCHINSON MD, Ot D68.51 ACTIVATED PROTEIN C RESISTANCE 01/10/2019 SHANI HUTCHINSON MD Ot I82.503 CHRONIC EMBLSM AND THOMBOS UNSP DEEP VEI 01/10/2019 SHANI HUTCHINSON MD Ot I87.333 CHRONIC VENOUS HTN W ULCER AND INFLAM OF 01/10/2019 SHANI HUTCHINSON MD Ot I89 .0 LYMPHEDEMA, NOT ELSEWHERE CLASSIFIED 01/10/2019 SHANI HUTCHINSON MD Ot I96 GANGRENE, NOT ELSEWHERE CLASSIFIED 01/10/2019 SHANI HUTCHINSON MD Ot L97.212 NON-PRESSURE CHRONIC ULCER OF RIGHT CALF 01/10/2019 SHANI HUTCHINSON MD Ot L97.222 NON-PRESSURE CHRONIC ULCER OF LEFT CALF 01/10/2019 SHANI HUTCHINSON MD Ot L97.312 NON-PRS CHRONIC ULCER OF RIGHT ANKLE W F 01/10/2019 SHANI HUTCHINSON MD Ot L97.522 NON-PRS CHRONIC ULCER OTH PRT LEFT FOOT 01/11/2019 SHANI HUTCHINSON MD Ot D68.51 ACTIVATED PROTEIN C RESISTANCE 01/11/2019 SHANI HUTCHINSON MD Ot I82.503 CHRONIC EMBLSM AND THOMBOS UNSP DEEP VEI 01/11/2019 SHANI HUTCHINSON MD Ot I87.333 CHRONIC VENOUS HTN W ULCER AND INFLAM OF 01/11/2019 SHANI HUTCHINSON MD Ot I89 .0 LYMPHEDEMA, NOT ELSEWHERE CLASSIFIED 01/11/2019 SHANI HUTCHINSON MD Ot I96 GANGRENE, NOT ELSEWHERE CLASSIFIED 01/11/2019 SHANI HUTCHINSON MD Ot L97.212 NON-PRESSURE CHRONIC ULCER OF RIGHT CALF 01/11/2019 SHANI HUTCHINSON MD Ot L97.222 NON-PRESSURE CHRONIC ULCER OF LEFT CALF 01/11/2019 SHANI HUTCHINSON MD Ot L97.312 NON-PRS CHRONIC ULCER OF RIGHT ANKLE W F 01/11/2019 SHANI HUTCHINSON MD Ot L97.522 NON-PRS CHRONIC ULCER OTH PRT LEFT FOOT 01/12/2019 SHANI HUTCHINSON MD, Ot D68.51 ACTIVATED PROTEIN C RESISTANCE 01/12/2019 SHANI HUTCHINSON MD Ot I82.503 CHRONIC EMBLSM AND THOMBOS UNSP DEEP VEI 01/12/2019 SHANI HUTCHINSON MD Ot I87.333 CHRONIC VENOUS HTN W ULCER AND INFLAM OF 01/12/2019 SHANI HUTCHINSON MD Ot I89 .0 LYMPHEDEMA, NOT ELSEWHERE CLASSIFIED 01/12/2019 SHANI HUTCHINSON MD, Ot I96 GANGRENE, NOT ELSEWHERE CLASSIFIED 01/12/2019 SHANI HUTCHINSON MD Ot L97.212 NON-PRESSURE CHRONIC ULCER OF RIGHT CALF 01/12/2019 SHANI HUTCHINSON MD Ot L97.222 NON-PRESSURE CHRONIC ULCER OF LEFT CALF 01/12/2019 SHANI HUTCHINSON MD Ot L97.312 NON-PRS CHRONIC ULCER OF RIGHT ANKLE W F 01/12/2019 SHANI HUTCHINSON MD Ot L97.522 NON-PRS CHRONIC ULCER OTH PRT LEFT FOOT 01/19/2019 SHANI HUTCHINSON MD Ot D68.51 ACTIVATED PROTEIN C RESISTANCE 01/19/2019 SHANI HUTCHINSON MD Ot I82.503 CHRONIC EMBLSM AND THOMBOS UNSP DEEP VEI 01/19/2019 SHANI HUTCHINSON MD Ot I87.333 CHRONIC VENOUS HTN W ULCER AND INFLAM OF 01/19/2019 SHANI HUTCHINSON MD Ot I89 .0 LYMPHEDEMA, NOT ELSEWHERE CLASSIFIED 01/19/2019 SHANI HUTCHINSON MD Ot I96 GANGRENE, NOT ELSEWHERE CLASSIFIED 01/19/2019 SHANI HUTCHINSON MD Ot L97.212 NON-PRESSURE CHRONIC ULCER OF RIGHT CALF 01/19/2019 SHANI HUTCHINSON MD Ot L97.222 NON-PRESSURE CHRONIC ULCER OF LEFT CALF 01/19/2019 SHANI HUTCHINSON MD Ot L97.312 NON-PRS CHRONIC ULCER OF RIGHT ANKLE W F 01/19/2019 SHANI HUTCHINSON MD Ot L97.522 NON-PRS CHRONIC ULCER OTH PRT LEFT FOOT 01/19/2019 SHANI HUTCHINSON MD, Ot D68.51 ACTIVATED PROTEIN C RESISTANCE 01/19/2019 SHANI HUTCHINSON MD Ot I82.503 CHRONIC EMBLSM AND THOMBOS UNSP DEEP VEI 01/19/2019 SHANI HUTCHINSON MD, Ot I87.333 CHRONIC VENOUS HTN W ULCER AND INFLAM OF 01/19/2019 SHANI HUTCHINSON MD, Ot I89 .0 LYMPHEDEMA, NOT ELSEWHERE CLASSIFIED 01/19/2019 SHANI HUTCHINSON MD, Ot I96 GANGRENE, NOT ELSEWHERE CLASSIFIED 01/19/2019 SHANI HUTCHINSON MD, Ot L97.212 NON-PRESSURE CHRONIC ULCER OF RIGHT CALF 01/19/2019 SHANI HUTCHINSON MD Ot L97.222 NON-PRESSURE CHRONIC ULCER OF LEFT CALF 01/19/2019 SHANI HUTCHINSON MD, Ot L97.312 NON-PRS CHRONIC ULCER OF RIGHT ANKLE W F 01/19/2019 SHANI HUTCHINSON MD Ot L97.522 NON-PRS CHRONIC ULCER OTH PRT LEFT FOOT 01/20/2019 SHANI HUTCHINSON MD, Ot D68.51 ACTIVATED PROTEIN C RESISTANCE 01/20/2019 SHANI HUTCHINSON MD, Ot I82.503 CHRONIC EMBLSM AND THOMBOS UNSP DEEP VEI 01/20/2019 SHANI HUTCHINSON MD Ot I87.333 CHRONIC VENOUS HTN W ULCER AND INFLAM OF 01/20/2019 SHANI HUTCHINSON MD, Ot I89 .0 LYMPHEDEMA, NOT ELSEWHERE CLASSIFIED 01/20/2019 SHANI HUTCHINSON MD Ot I96 GANGRENE, NOT ELSEWHERE CLASSIFIED 01/20/2019 SHANI HUTCHINSON MD Ot L97.212 NON-PRESSURE CHRONIC ULCER OF RIGHT CALF 01/20/2019 SHANI HUTCHINSON MD Ot L97.222 NON-PRESSURE CHRONIC ULCER OF LEFT CALF 01/20/2019 SHANI HUTCHINSON MD, Ot L97.312 NON-PRS CHRONIC ULCER OF RIGHT ANKLE W F 01/20/2019 SHANI HUTCHINSON MD Ot L97.522 NON-PRS CHRONIC ULCER OTH PRT LEFT FOOT 01/21/2019 SHANI HUTCHINSON MD Ot L97.222 NON-PRESSURE CHRONIC ULCER OF LEFT CALF 01/21/2019 SHANI HUTCHINSON MD, Ot D68.51 ACTIVATED PROTEIN C RESISTANCE 01/21/2019 SHANI HUTCHINSON MD Ot I82.503 CHRONIC EMBLSM AND THOMBOS UNSP DEEP VEI 01/21/2019 SHANI HUTCHINSON MD Ot I87.333 CHRONIC VENOUS HTN W ULCER AND INFLAM OF 01/21/2019 SHANI HUTCHINSON MD, Ot I89 .0 LYMPHEDEMA, NOT ELSEWHERE CLASSIFIED 01/21/2019 SHANI HUTCHINSON MD, Ot I96 GANGRENE, NOT ELSEWHERE CLASSIFIED 01/21/2019 SHANI HUTCHINSON MD Ot L97.212 NON-PRESSURE CHRONIC ULCER OF RIGHT CALF 01/21/2019 SHANI HUTCHINSON MD Ot L97.222 NON-PRESSURE CHRONIC ULCER OF LEFT CALF 01/21/2019 SHANI HUTCHINSON MD Ot L97.312 NON-PRS CHRONIC ULCER OF RIGHT ANKLE W F 01/21/2019 SHANI HUTCHINSON MD Ot L97.522 NON-PRS CHRONIC ULCER OTH PRT LEFT FOOT 01/21/2019 SHANI HUTCHINSON MD, Ot D68.51 ACTIVATED PROTEIN C RESISTANCE 01/21/2019 SHANI HUTCHINSON MD, Ot I82.503 CHRONIC EMBLSM AND THOMBOS UNSP DEEP VEI 01/21/2019 SHANI HUTCHINSON MD, Ot I87.333 CHRONIC VENOUS HTN W ULCER AND INFLAM OF 01/21/2019 SHANI HUTCHINSON MD, Ot I89 .0 LYMPHEDEMA, NOT ELSEWHERE CLASSIFIED 01/21/2019 SHANI HUTCHINSON MD Ot I96 GANGRENE, NOT ELSEWHERE CLASSIFIED 01/21/2019 SHANI HUTCHINSON MD Ot L97.212 NON-PRESSURE CHRONIC ULCER OF RIGHT CALF 01/21/2019 SHANI HUTCHINSON MD Ot L97.222 NON-PRESSURE CHRONIC ULCER OF LEFT CALF 01/21/2019 SHANI HUTCHINSON MD Ot L97.312 NON-PRS CHRONIC ULCER OF RIGHT ANKLE W F 01/21/2019 SHANI HUTCHINSON MD Ot L97.522 NON-PRS CHRONIC ULCER OTH PRT LEFT FOOT 01/26/2019 SHANI HUTCHINSON MD Ot D68.51 ACTIVATED PROTEIN C RESISTANCE 01/26/2019 SHANI HUTCHINSON MD Ot I82.503 CHRONIC EMBLSM AND THOMBOS UNSP DEEP VEI 01/26/2019 SHANI HUTCHINSON MD Ot I87.333 CHRONIC VENOUS HTN W ULCER AND INFLAM OF 01/26/2019 SHANI HUTCHINSON MD Ot I89 .0 LYMPHEDEMA, NOT ELSEWHERE CLASSIFIED 01/26/2019 SHANI HUTCHINSON MD, Ot I96 GANGRENE, NOT ELSEWHERE CLASSIFIED 01/26/2019 SHANI HUTCHINSON MD Ot L97.212 NON-PRESSURE CHRONIC ULCER OF RIGHT CALF 01/26/2019 SHANI HUTCHINSON MD Ot L97.222 NON-PRESSURE CHRONIC ULCER OF LEFT CALF 01/26/2019 SHANI HUTCHINSON MD Ot L97.312 NON-PRS CHRONIC ULCER OF RIGHT ANKLE W F 01/26/2019 SHANI HUTCHINSON MD Ot L97.522 NON-PRS CHRONIC ULCER OTH PRT LEFT FOOT 02/01/2019 SHANI HUTCHINSON MD, Ot D68.51 ACTIVATED PROTEIN C RESISTANCE 02/01/2019 SHANI HUTCHINSON MD, Ot I82.503 CHRONIC EMBLSM AND THOMBOS UNSP DEEP VEI 02/01/2019 SHANI HUTCHINSON MD Ot I87.333 CHRONIC VENOUS HTN W ULCER AND INFLAM OF 02/01/2019 SHANI HUTCHINSON MD Ot I89 .0 LYMPHEDEMA, NOT ELSEWHERE CLASSIFIED 02/01/2019 SHANI HUTCHINSON MD Ot I96 GANGRENE, NOT ELSEWHERE CLASSIFIED 02/01/2019 SHANI HUTCHINSON MD Ot L97.212 NON-PRESSURE CHRONIC ULCER OF RIGHT CALF 02/01/2019 SHANI HUTCHINSON MD Ot L97.222 NON-PRESSURE CHRONIC ULCER OF LEFT CALF 02/01/2019 SAHNI HUTCHINSON MD Ot L97.312 NON-PRS CHRONIC ULCER OF RIGHT ANKLE W F 02/01/2019 SHANI HUTCHINSON MD Ot L97.522 NON-PRS CHRONIC ULCER OTH PRT LEFT FOOT 02/02/2019 SHANI HUTCHINSON MD, Ot D68.51 ACTIVATED PROTEIN C RESISTANCE 02/02/2019 SHANI HUTCHINSON MD Ot I82.503 CHRONIC EMBLSM AND THOMBOS UNSP DEEP VEI 02/02/2019 SHANI HUTCHINSON MD Ot I87.333 CHRONIC VENOUS HTN W ULCER AND INFLAM OF 02/02/2019 SHANI HUTCHINSON MD, Ot I89 .0 LYMPHEDEMA, NOT ELSEWHERE CLASSIFIED 02/02/2019 SHANI HUTCHINSON MD Ot I96 GANGRENE, NOT ELSEWHERE CLASSIFIED 02/02/2019 SHANI HUTCHINSON MD Ot L97.212 NON-PRESSURE CHRONIC ULCER OF RIGHT CALF 02/02/2019 SHANI HUTCHINSON MD Ot L97.222 NON-PRESSURE CHRONIC ULCER OF LEFT CALF 02/02/2019 SHANI HUTCHINSON MD Ot L97.312 NON-PRS CHRONIC ULCER OF RIGHT ANKLE W F 02/02/2019 SHANI HUTCHINSON MD Ot L97.522 NON-PRS CHRONIC ULCER OTH PRT LEFT FOOT 02/07/2019 SHANI HUTCHINSON MD Ot D68.51 ACTIVATED PROTEIN C RESISTANCE 02/07/2019 SHANI HUTCHINSON MD, Ot I82.503 CHRONIC EMBLSM AND THOMBOS UNSP DEEP VEI 02/07/2019 SHANI HUTCHINSON MD, Ot I87.333 CHRONIC VENOUS HTN W ULCER AND INFLAM OF 02/07/2019 SHANI HUTCHINSON MD, Ot I89 .0 LYMPHEDEMA, NOT ELSEWHERE CLASSIFIED 02/07/2019 SHANI HUTCHINSON MD Ot L97.212 NON-PRESSURE CHRONIC ULCER OF RIGHT CALF 02/07/2019 SHANI HUTCHINSON MD Ot L97.222 NON-PRESSURE CHRONIC ULCER OF LEFT CALF 02/07/2019 SHANI HUTCHINSON MD Ot L97.312 NON-PRS CHRONIC ULCER OF RIGHT ANKLE W F 02/07/2019 SHANI HUTCHINSON MD Ot L97.522 NON-PRS CHRONIC ULCER OTH PRT LEFT FOOT 02/09/2019 SHANI HUTCHINSON MD, Ot D68.51 ACTIVATED PROTEIN C RESISTANCE 02/09/2019 SHANI HUTCHINSON MD Ot I82.503 CHRONIC EMBLSM AND THOMBOS UNSP DEEP VEI 02/09/2019 SHANI HUTCHINSON MD, Ot I87.333 CHRONIC VENOUS HTN W ULCER AND INFLAM OF 02/09/2019 SHANI HUTCHINSON MD Ot I89 .0 LYMPHEDEMA, NOT ELSEWHERE CLASSIFIED 02/09/2019 SHANI HUTCHINSON MD Ot I96 GANGRENE, NOT ELSEWHERE CLASSIFIED 02/09/2019 SHANI HUTCHINSON MD Ot L97.212 NON-PRESSURE CHRONIC ULCER OF RIGHT CALF 02/09/2019 SHANI HUTCHINSON MD Ot L97.222 NON-PRESSURE CHRONIC ULCER OF LEFT CALF 02/09/2019 SHANI HUTCHINSON MD Ot L97.312 NON-PRS CHRONIC ULCER OF RIGHT ANKLE W F 02/09/2019 SHANI HUTCHINSON MD, Ot L97.522 NON-PRS CHRONIC ULCER OTH PRT LEFT FOOT 02/11/2019 SHANI HUTCHINSON MD Ot L97.222 NON-PRESSURE CHRONIC ULCER OF LEFT CALF 02/16/2019 SHANI HUTCHINSON MD, Ot D68.51 ACTIVATED PROTEIN C RESISTANCE 02/16/2019 SHANI HUTCHINSON MD Ot I82.503 CHRONIC EMBLSM AND THOMBOS UNSP DEEP VEI 02/16/2019 SHANI HUTCHINSON MD, Ot I87.333 CHRONIC VENOUS HTN W ULCER AND INFLAM OF 02/16/2019 SHANI HUTCHINSON MD, Ot I89 .0 LYMPHEDEMA, NOT ELSEWHERE CLASSIFIED 02/16/2019 SHANI HUTCHINSON MD Ot I96 GANGRENE, NOT ELSEWHERE CLASSIFIED 02/16/2019 SHANI HUTCHINSON MD, Ot L97.212 NON-PRESSURE CHRONIC ULCER OF RIGHT CALF 02/16/2019 SHANI HUTCHINSON MD Ot L97.222 NON-PRESSURE CHRONIC ULCER OF LEFT CALF 02/16/2019 SHANI HUTCHINSON MD Ot L97.312 NON-PRS CHRONIC ULCER OF RIGHT ANKLE W F 02/16/2019 SHANI HUTCHINSON MD, Ot L97.522 NON-PRS CHRONIC ULCER OTH PRT LEFT FOOT 02/16/2019 SHANI HUTCHINSON MD, Ot D68.51 ACTIVATED PROTEIN C RESISTANCE 02/16/2019 SHANI HUTCHINSON MD, Ot I82.503 CHRONIC EMBLSM AND THOMBOS UNSP DEEP VEI 02/16/2019 SHANI HUTCHINSON MD Ot I87.333 CHRONIC VENOUS HTN W ULCER AND INFLAM OF 02/16/2019 SHANI HUTCHINSON MD Ot I89 .0 LYMPHEDEMA, NOT ELSEWHERE CLASSIFIED 02/16/2019 SHANI HUTCHINSON MD Ot I96 GANGRENE, NOT ELSEWHERE CLASSIFIED 02/16/2019 SHANI HUTCHINSON MD Ot L97.212 NON-PRESSURE CHRONIC ULCER OF RIGHT CALF 02/16/2019 SHANI HUTCHINSON MD Ot L97.222 NON-PRESSURE CHRONIC ULCER OF LEFT CALF 02/16/2019 SHANI HUTCHINSON MD Ot L97.312 NON-PRS CHRONIC ULCER OF RIGHT ANKLE W F 02/16/2019 SHANI HUTCHINSON MD Ot L97.522 NON-PRS CHRONIC ULCER OTH PRT LEFT FOOT 02/16/2019 SHANI HUTCHINSON MD, Ot D68.51 ACTIVATED PROTEIN C RESISTANCE 02/16/2019 SHANI HUTCHINOSN MD, Ot I82.503 CHRONIC EMBLSM AND THOMBOS UNSP DEEP VEI 02/16/2019 SHANI HUTCHINSON MD Ot I87.333 CHRONIC VENOUS HTN W ULCER AND INFLAM OF 02/16/2019 SHANI HUTCHINSON MD, Ot I89 .0 LYMPHEDEMA, NOT ELSEWHERE CLASSIFIED 02/16/2019 SHANI HUTCHINSON MD Ot L97.212 NON-PRESSURE CHRONIC ULCER OF RIGHT CALF 02/16/2019 SHANI HUTCHINSON MD Ot L97.222 NON-PRESSURE CHRONIC ULCER OF LEFT CALF 02/16/2019 SHANI HUTCHINSON MD, Ot L97.312 NON-PRS CHRONIC ULCER OF RIGHT ANKLE W F 02/16/2019 SHANI HUTCHINSON MD, Ot L97.522 NON-PRS CHRONIC ULCER OTH PRT LEFT FOOT 02/24/2019 SHANI HUTCHINSON MD, Ot D68.51 ACTIVATED PROTEIN C RESISTANCE 02/24/2019 SHANI HUTCHINSON MD, Ot I82.503 CHRONIC EMBLSM AND THOMBOS UNSP DEEP VEI 02/24/2019 SHANI HUTCHINSON MD Ot I87.333 CHRONIC VENOUS HTN W ULCER AND INFLAM OF 02/24/2019 SHANI HUTCHINSON MD Ot I89 .0 LYMPHEDEMA, NOT ELSEWHERE CLASSIFIED 02/24/2019 SHANI HUTCHINSON MD Ot I96 GANGRENE, NOT ELSEWHERE CLASSIFIED 02/24/2019 SHANI HUTCHINSON MD Ot L97.212 NON-PRESSURE CHRONIC ULCER OF RIGHT CALF 02/24/2019 SHANI HUTCHINSON MD Ot L97.222 NON-PRESSURE CHRONIC ULCER OF LEFT CALF 02/24/2019 SHANI HUTCHINSON MD, Ot L97.312 NON-PRS CHRONIC ULCER OF RIGHT ANKLE W F 02/24/2019 SHANI HUTCHINSON MD, Ot L97.522 NON-PRS CHRONIC ULCER OTH PRT LEFT FOOT 02/27/2019 DEANA ALARCON MD Ot D50. 0 IRON DEFICIENCY ANEMIA SECONDARY TO BLOO 02/27/2019 DEANA ALARCON MD Ot D68. 51 ACTIVATED PROTEIN C RESISTANCE 02/27/2019 DEANA ALARCON MD, Ot E66. 01 MORBID (SEVERE) OBESITY DUE TO EXCESS CA 02/27/2019 DEANA ALARCON MD, Ot I82.503 CHRONIC EMBLSM AND THOMBOS UNSP DEEP VEI 02/27/2019 DEANA ALARCON MD, Ot K29. 70 GASTRITIS, UNSPECIFIED, WITHOUT BLEEDING 02/27/2019 DEANA ALARCON MD, Ot Z68. 39 BODY MASS INDEX (BMI) 39.0-39.9, ADULT 02/27/2019 DEANA ALARCON MD, Ot Z79. 01 SHELTER (CURRENT) USE OF ANTICOAGULANT 02/27/2019 DEANA ALARCON MD, Ot Z79. 82 SHELTER (CURRENT) USE OF ASPIRIN 02/27/2019 DEANA ALARCON MD, Ot Z79.899 OTHER SHELTER (CURRENT) DRUG THERAPY 02/28/2019 SHANI HUTCHINSON MD, Ot D68.51 ACTIVATED PROTEIN C RESISTANCE 02/28/2019 SHANI HUTCHINSON MD, Ot I82.503 CHRONIC EMBLSM AND THOMBOS UNSP DEEP VEI 02/28/2019 SHANI HUTCHINSON MD, Ot I87.333 CHRONIC VENOUS HTN W ULCER AND INFLAM OF 02/28/2019 SHANI HUTCHINSON MD, Ot I89 .0 LYMPHEDEMA, NOT ELSEWHERE CLASSIFIED 02/28/2019 SHANI HUTCHINSON MD, Ot L97.212 NON-PRESSURE CHRONIC ULCER OF RIGHT CALF 02/28/2019 SHANI HUTCHINSON MD, Ot L97.222 NON-PRESSURE CHRONIC ULCER OF LEFT CALF 02/28/2019 SHANI HUTCHINSON MD, Ot L97.312 NON-PRS CHRONIC ULCER OF RIGHT ANKLE W F 02/28/2019 SHANI HUTCHINSON MD, Ot L97.522 NON-PRS CHRONIC ULCER OTH PRT LEFT FOOT 02/28/2019 DEANA ALARCON MD, Ot D50. 0 IRON DEFICIENCY ANEMIA SECONDARY TO BLOO 02/28/2019 DEANA ALARCON MD, Ot D68. 51 ACTIVATED PROTEIN C RESISTANCE 02/28/2019 DEANA ALARCON MD, Ot E66. 01 MORBID (SEVERE) OBESITY DUE TO EXCESS CA 02/28/2019 DEANA ALARCON MD, Ot I82.503 CHRONIC EMBLSM AND THOMBOS UNSP DEEP VEI 02/28/2019 DEANA ALARCON MD, Ot K29. 70 GASTRITIS, UNSPECIFIED, WITHOUT BLEEDING 02/28/2019 DEANA ALARCON MD Ot Z68. 39 BODY MASS INDEX (BMI) 39.0-39.9, ADULT 02/28/2019 DEANA ALARCON MD, Ot Z79. 01 PHYSICIAN CHIEF OF PATHOLOGY (CURRENT) USE OF ANTICOAGULANT 02/28/2019 DEANA ALARCON MD, Ot Z79. 82 SHELTER (CURRENT) USE OF ASPIRIN 02/28/2019 DEANA ALARCON MD, Ot Z79.899 OTHER SHELTER (CURRENT) DRUG THERAPY 03/04/2019 SHANI HUTCHINSON MD, Ot D68.51 ACTIVATED PROTEIN C RESISTANCE 03/04/2019 SHANI HUTCHINSON MD, Ot I82.503 CHRONIC EMBLSM AND THOMBOS UNSP DEEP VEI 03/04/2019 SHANI HUTCHINSON MD, Ot I87.333 CHRONIC VENOUS HTN W ULCER AND INFLAM OF 03/04/2019 SHANI HUTCHINSON MD, Ot I89 .0 LYMPHEDEMA, NOT ELSEWHERE CLASSIFIED 03/04/2019 SHANI HUTCHINSON MD, Ot I96 GANGRENE, NOT ELSEWHERE CLASSIFIED 03/04/2019 SHANI HUTCHINSON MD, Ot L97.212 NON-PRESSURE CHRONIC ULCER OF RIGHT CALF 03/04/2019 SHANI HUTCHINSON MD Ot L97.222 NON-PRESSURE CHRONIC ULCER OF LEFT CALF 03/04/2019 SHANI HUTCHINSON MD, Ot L97.312 NON-PRS CHRONIC ULCER OF RIGHT ANKLE W F 03/04/2019 SHANI HUTCHINSON MD Ot L97.522 NON-PRS CHRONIC ULCER OTH PRT LEFT FOOT 03/07/2019 SHANI HUTCHINSON MD, Ot D68.51 ACTIVATED PROTEIN C RESISTANCE 03/07/2019 SHANI HUTCHINSON MD, Ot I82.503 CHRONIC EMBLSM AND THOMBOS UNSP DEEP VEI 03/07/2019 SHANI HUTCHINSON MD, Ot I87.333 CHRONIC VENOUS HTN W ULCER AND INFLAM OF 03/07/2019 SHANI HUTCHINSON MD, Ot I89 .0 LYMPHEDEMA, NOT ELSEWHERE CLASSIFIED 03/07/2019 SHANI HUTCHINSON MD, Ot L97.212 NON-PRESSURE CHRONIC ULCER OF RIGHT CALF 03/07/2019 SHANI HUTCHINSON MD Ot L97.222 NON-PRESSURE CHRONIC ULCER OF LEFT CALF 03/07/2019 SHANI HUTCHINSON MD Ot L97.312 NON-PRS CHRONIC ULCER OF RIGHT ANKLE W F 03/07/2019 SHANI HUTCHINSON MD Ot L97.522 NON-PRS CHRONIC ULCER OTH PRT LEFT FOOT 03/10/2019 SHANI HUTCHINSON MD Ot D68.51 ACTIVATED PROTEIN C RESISTANCE 03/10/2019 SHANI HUTCHINSON MD Ot I82.503 CHRONIC EMBLSM AND THOMBOS UNSP DEEP VEI 03/10/2019 SHANI HUTCHINSON MD Ot I87.333 CHRONIC VENOUS HTN W ULCER AND INFLAM OF 03/10/2019 SHANI HUTCHINSON MD Ot I89 .0 LYMPHEDEMA, NOT ELSEWHERE CLASSIFIED 03/10/2019 SHANI HUTCHINSON MD Ot I96 GANGRENE, NOT ELSEWHERE CLASSIFIED 03/10/2019 SHANI HUTCHINSON MD Ot L97.212 NON-PRESSURE CHRONIC ULCER OF RIGHT CALF 03/10/2019 SHANI HUTCHINSON MD Ot L97.222 NON-PRESSURE CHRONIC ULCER OF LEFT CALF 03/10/2019 SHANI HUTCHINSON MD Ot L97.312 NON-PRS CHRONIC ULCER OF RIGHT ANKLE W F 03/10/2019 SHANI HUTCHINSON MD Ot L97.522 NON-PRS CHRONIC ULCER OTH PRT LEFT FOOT 03/10/2019 SHANI HUTCHINSON MD Ot D68.51 ACTIVATED PROTEIN C RESISTANCE 03/10/2019 SHANI HUTCHINSON MD Ot I82.503 CHRONIC EMBLSM AND THOMBOS UNSP DEEP VEI 03/10/2019 SHANI HUTCHINSON MD Ot I87.333 CHRONIC VENOUS HTN W ULCER AND INFLAM OF 03/10/2019 SHANI HUTCHINSON MD Ot I89 .0 LYMPHEDEMA, NOT ELSEWHERE CLASSIFIED 03/10/2019 SHANI HUTCHINSON MD Ot I96 GANGRENE, NOT ELSEWHERE CLASSIFIED 03/10/2019 SHANI HUTCHINSON MD Ot L97.212 NON-PRESSURE CHRONIC ULCER OF RIGHT CALF 03/10/2019 SHANI HUTCHINSON MD Ot L97.222 NON-PRESSURE CHRONIC ULCER OF LEFT CALF 03/10/2019 SHANI HUTCHINSON MD Ot L97.312 NON-PRS CHRONIC ULCER OF RIGHT ANKLE W F 03/10/2019 SHANI HUTCHINSON MD Ot L97.522 NON-PRS CHRONIC ULCER OTH PRT LEFT FOOT 03/10/2019 SHANI HUTCHINSON MD Ot D68.51 ACTIVATED PROTEIN C RESISTANCE 03/10/2019 SHANI HUTCHINSON MD Ot I82.503 CHRONIC EMBLSM AND THOMBOS UNSP DEEP VEI 03/10/2019 SHANI HUTCHINSON MD Ot I87.333 CHRONIC VENOUS HTN W ULCER AND INFLAM OF 03/10/2019 SHANI HUTCHINSON MD Ot I89 .0 LYMPHEDEMA, NOT ELSEWHERE CLASSIFIED 03/10/2019 SHANI HUTCHINSON MD Ot L97.212 NON-PRESSURE CHRONIC ULCER OF RIGHT CALF 03/10/2019 SHANI HUTCHINSON MD Ot L97.222 NON-PRESSURE CHRONIC ULCER OF LEFT CALF 03/10/2019 SHANI HUTCHINSON MD Ot L97.312 NON-PRS CHRONIC ULCER OF RIGHT ANKLE W F 03/10/2019 SHANI HUTCHINSON MD Ot L97.522 NON-PRS CHRONIC ULCER OTH PRT LEFT FOOT 03/10/2019 SHANI HUTCHINSON MD Ot D68.51 ACTIVATED PROTEIN C RESISTANCE 03/10/2019 SHANI HUTCHINSON MD Ot I82.503 CHRONIC EMBLSM AND THOMBOS UNSP DEEP VEI 03/10/2019 SHANI HUTCHINSON MD Ot I87.333 CHRONIC VENOUS HTN W ULCER AND INFLAM OF 03/10/2019 SHANI HUTCHINSON MD Ot I89 .0 LYMPHEDEMA, NOT ELSEWHERE CLASSIFIED 03/10/2019 SHANI HUTCHINSON MD Ot L97.212 NON-PRESSURE CHRONIC ULCER OF RIGHT CALF 03/10/2019 SHANI HUTCHINSON MD Ot L97.222 NON-PRESSURE CHRONIC ULCER OF LEFT CALF 03/10/2019 SHANI HUTCHINSON MD Ot L97.312 NON-PRS CHRONIC ULCER OF RIGHT ANKLE W F 03/10/2019 SHANI HUTCHINSON MD Ot L97.522 NON-PRS CHRONIC ULCER OTH PRT LEFT FOOT 03/20/2019 MARIALUISA ALFARO MD Ot R60.0 LOCALIZED EDEMA 03/21/2019 SHANI HUTCHINSON MD Ot D68.51 ACTIVATED PROTEIN C RESISTANCE 03/21/2019 SHANI HUTCHINSON MD Ot I82.503 CHRONIC EMBLSM AND THOMBOS UNSP DEEP VEI 03/21/2019 SHANI HUTCHINSON MD Ot I87.333 CHRONIC VENOUS HTN W ULCER AND INFLAM OF 03/21/2019 SHANI HUTCHINSON MD Ot I89 .0 LYMPHEDEMA, NOT ELSEWHERE CLASSIFIED 03/21/2019 SHANI HUTCHINSON MD Ot I96 GANGRENE, NOT ELSEWHERE CLASSIFIED 03/21/2019 SHANI HUTCHINSON MD Ot L97.212 NON-PRESSURE CHRONIC ULCER OF RIGHT CALF 03/21/2019 SHANI HUTCHINSON MD Ot L97.222 NON-PRESSURE CHRONIC ULCER OF LEFT CALF 03/21/2019 SHANI HUTCHINSON MD Ot L97.312 NON-PRS CHRONIC ULCER OF RIGHT ANKLE W F 03/21/2019 SHANI HUTCHINSON MD Ot L97.522 NON-PRS CHRONIC ULCER OTH PRT LEFT FOOT 03/21/2019 SHANI HUTCHINSON MD, Ot D68.51 ACTIVATED PROTEIN C RESISTANCE 03/21/2019 SHANI HUTCHINSON MD Ot I82.503 CHRONIC EMBLSM AND THOMBOS UNSP DEEP VEI 03/21/2019 SHANI HUTCHINSON MD Ot I87.333 CHRONIC VENOUS HTN W ULCER AND INFLAM OF 03/21/2019 SHANI HUTCHINSON MD Ot I89 .0 LYMPHEDEMA, NOT ELSEWHERE CLASSIFIED 03/21/2019 SHANI HUTCHINSON MD Ot L97.212 NON-PRESSURE CHRONIC ULCER OF RIGHT CALF 03/21/2019 SHANI HUTCHINSON MD Ot L97.222 NON-PRESSURE CHRONIC ULCER OF LEFT CALF 03/21/2019 SHANI HUTCHINSON MD Ot L97.312 NON-PRS CHRONIC ULCER OF RIGHT ANKLE W F 03/21/2019 SHANI HUTCHINSON MD Ot L97.522 NON-PRS CHRONIC ULCER OTH PRT LEFT FOOT 03/23/2019 ZAIRE WESTFALL MD, Ot D68.51 ACTIVATED PROTEIN C RESISTANCE 03/23/2019 ZAIRE WESTFALL MD Ot I82.503 CHRONIC EMBLSM AND THOMBOS UNSP DEEP VEI 03/23/2019 ZAIRE WESTFALL MD Ot I87.333 CHRONIC VENOUS HTN W ULCER AND INFLAM OF 03/23/2019 ZAIRE WESTFALL MD Ot I89.0 LYMPHEDEMA, NOT ELSEWHERE CLASSIFIED 03/23/2019 ZAIRE WESTFALL MD Ot I96 GANGRENE, NOT ELSEWHERE CLASSIFIED 03/23/2019 ZAIRE WESTFALL MD Ot L97.212 NON- PRESSURE CHRONIC ULCER OF RIGHT CALF 03/23/2019 ZAIRE WESTFALL MD Ot L97.222 NON- PRESSURE CHRONIC ULCER OF LEFT CALF 03/23/2019 ZAIRE WESTFALL MD Ot L97.312 NON- PRS CHRONIC ULCER OF RIGHT ANKLE W F 03/23/2019 ZAIRE WESTFALL MD Ot L97.522 NON- PRS CHRONIC ULCER OTH PRT LEFT FOOT 03/23/2019 MARIALUISA ALFARO MD Ot D68.51 ACTIVATED PROTEIN C RESISTANCE 03/23/2019 MARIALUISA ALFARO MD Ot I82.503 CHRONIC EMBLSM AND THOMBOS UNSP DEEP VEI 03/23/2019 MARIALUISA ALFARO MD Ot I87.333 CHRONIC VENOUS HTN W ULCER AND INFLAM OF 03/23/2019 MARIALUISA ALFARO MD Ot I89.0 LYMPHEDEMA, NOT ELSEWHERE CLASSIFIED 03/23/2019 MARIALUISA ALFARO MD Ot I 96 GANGRENE, NOT ELSEWHERE CLASSIFIED 03/23/2019 MARIALUISA ALFARO MD Ot L97.212 NON-PRESSURE CHRONIC ULCER OF RIGHT CALF 03/23/2019 MARIALUISA ALFARO MD Ot L97.222 NON-PRESSURE CHRONIC ULCER OF LEFT CALF 03/23/2019 MARIALUISA ALFARO MD Ot L97.312 NON-PRS CHRONIC ULCER OF RIGHT ANKLE W F 03/23/2019 MARIALUISA ALFARO MD Ot L97.522 NON-PRS CHRONIC ULCER OTH PRT LEFT FOOT 03/24/2019 SHANI HUTCHINSON MD Ot D68.51 ACTIVATED PROTEIN C RESISTANCE 03/24/2019 SHANI HUTCHINSON MD Ot I82.503 CHRONIC EMBLSM AND THOMBOS UNSP DEEP VEI 03/24/2019 SHANI HUTCHINSON MD Ot I87.333 CHRONIC VENOUS HTN W ULCER AND INFLAM OF 03/24/2019 SHANI HUTCHINSON MD Ot I89 .0 LYMPHEDEMA, NOT ELSEWHERE CLASSIFIED 03/24/2019 SHANI HUTCHINSON MD Ot I96 GANGRENE, NOT ELSEWHERE CLASSIFIED 03/24/2019 SHANI HUTCHINSON MD Ot L97.212 NON-PRESSURE CHRONIC ULCER OF RIGHT CALF 03/24/2019 SHANI HUTCHINSON MD Ot L97.222 NON-PRESSURE CHRONIC ULCER OF LEFT CALF 03/24/2019 SHANI HUTCHINSON MD Ot L97.312 NON-PRS CHRONIC ULCER OF RIGHT ANKLE W F 03/24/2019 SHANI HUTCHINSON MD Ot L97.522 NON-PRS CHRONIC ULCER OTH PRT LEFT FOOT 03/24/2019 SHANI HUTCHINSON MD Ot D68.51 ACTIVATED PROTEIN C RESISTANCE 03/24/2019 SHANI HUTCHINSON MD Ot I82.503 CHRONIC EMBLSM AND THOMBOS UNSP DEEP VEI 03/24/2019 SHANI HUTCHINSON MD Ot I87.333 CHRONIC VENOUS HTN W ULCER AND INFLAM OF 03/24/2019 SHANI HUTCHINSON MD Ot I89 .0 LYMPHEDEMA, NOT ELSEWHERE CLASSIFIED 03/24/2019 SHANI HUTCHINSON MD Ot I96 GANGRENE, NOT ELSEWHERE CLASSIFIED 03/24/2019 SHANI HUTCHINSON MD Ot L97.212 NON-PRESSURE CHRONIC ULCER OF RIGHT CALF 03/24/2019 SHANI HUTCHINSON MD Ot L97.222 NON-PRESSURE CHRONIC ULCER OF LEFT CALF 03/24/2019 SHANI HUTCHINSON MD Ot L97.312 NON-PRS CHRONIC ULCER OF RIGHT ANKLE W F 03/24/2019 SHANI HUTCHINSON MD Ot L97.522 NON-PRS CHRONIC ULCER OTH PRT LEFT FOOT 03/25/2019 ZAIRE WESTFALL MD Ot D68.51 ACTIVATED PROTEIN C RESISTANCE 03/25/2019 ZAIRE WESTFALL MD Ot I82.503 CHRONIC EMBLSM AND THOMBOS UNSP DEEP VEI 03/25/2019 ZAIRE WESTFALL MD Ot I87.333 CHRONIC VENOUS HTN W ULCER AND INFLAM OF 03/25/2019 ZAIRE WESTFALL MD Ot I89.0 LYMPHEDEMA, NOT ELSEWHERE CLASSIFIED 03/25/2019 ZAIRE WESTFALL MD Ot L97.212 NON- PRESSURE CHRONIC ULCER OF RIGHT CALF 03/25/2019 ZAIRE WESTFALL MD Ot L97.222 NON- PRESSURE CHRONIC ULCER OF LEFT CALF 03/25/2019 ZAIRE WESTFALL MD Ot L97.312 NON- PRS CHRONIC ULCER OF RIGHT ANKLE W F 03/25/2019 ZAIRE WESTFALL MD Ot L97.522 NON- PRS CHRONIC ULCER OTH PRT LEFT FOOT 03/31/2019 MARIALUISA ALFARO MD Ot R60.0 LOCALIZED EDEMA 03/31/2019 ZAIRE WESTFALL MD Ot D68.51 ACTIVATED PROTEIN C RESISTANCE 03/31/2019 ZAIRE WESTFALL MD Ot I82.503 CHRONIC EMBLSM AND THOMBOS UNSP DEEP VEI 03/31/2019 ZAIRE WESTFALL MD Ot I87.333 CHRONIC VENOUS HTN W ULCER AND INFLAM OF 03/31/2019 ZAIRE WESTFALL MD Ot I89.0 LYMPHEDEMA, NOT ELSEWHERE CLASSIFIED 03/31/2019 ZAIRE WESTFALL MD Ot I96 GANGRENE, NOT ELSEWHERE CLASSIFIED 03/31/2019 ZAIRE WESTFALL MD Ot L97.212 NON- PRESSURE CHRONIC ULCER OF RIGHT CALF 03/31/2019 ZAIRE WESTFALL MD Ot L97.222 NON- PRESSURE CHRONIC ULCER OF LEFT CALF 03/31/2019 ZAIRE WESTFALL MD Ot L97.312 NON- PRS CHRONIC ULCER OF RIGHT ANKLE W F 03/31/2019 ZAIRE WESTFALL MD, Ot L97.522 NON- PRS CHRONIC ULCER OTH PRT LEFT FOOT 04/01/2019 ZAIRE WESTFALL MD, Ot D68.51 ACTIVATED PROTEIN C RESISTANCE 04/01/2019 ZAIRE WESTFALL MD Ot I82.503 CHRONIC EMBLSM AND THOMBOS UNSP DEEP VEI 04/01/2019 ZAIRE WESTFALL MD Ot I89.0 LYMPHEDEMA, NOT ELSEWHERE CLASSIFIED 04/01/2019 ZAIRE WESTFALL MD, Ot L97.212 NON- PRESSURE CHRONIC ULCER OF RIGHT CALF 04/01/2019 ZAIRE WESTFALL MD, Ot L97.222 NON- PRESSURE CHRONIC ULCER OF LEFT CALF 04/01/2019 ZAIRE WESTFALL MD, Ot L97.312 NON- PRS CHRONIC ULCER OF RIGHT ANKLE W F 04/01/2019 ZAIRE WESTFALL MD, Ot L97.522 NON- PRS CHRONIC ULCER OTH PRT LEFT FOOT 04/01/2019 ZAIRE WESTFALL MD, Ot D68.51 ACTIVATED PROTEIN C RESISTANCE 04/01/2019 ZAIRE WESTFALL MD Ot I82.503 CHRONIC EMBLSM AND THOMBOS UNSP DEEP VEI 04/01/2019 ZAIRE WESTFALL MD Ot I89.0 LYMPHEDEMA, NOT ELSEWHERE CLASSIFIED 04/01/2019 ZAIRE WESTFALL MD, Ot L97.212 NON- PRESSURE CHRONIC ULCER OF RIGHT CALF 04/01/2019 ZAIRE WESTFALL MD Ot L97.222 NON- PRESSURE CHRONIC ULCER OF LEFT CALF 04/01/2019 ZAIRE WESTFALL MD, Ot L97.312 NON- PRS CHRONIC ULCER OF RIGHT ANKLE W F 04/01/2019 ZAIRE WESTFALL MD Ot L97.522 NON- PRS CHRONIC ULCER OTH PRT LEFT FOOT 04/04/2019 DEANA ALARCON MD Ot D50. 0 IRON DEFICIENCY ANEMIA SECONDARY TO BLOO 04/04/2019 DEANA ALARCON MD, Ot D68. 51 ACTIVATED PROTEIN C RESISTANCE 04/04/2019 DEANA ALARCON MD Ot E66. 01 MORBID (SEVERE) OBESITY DUE TO EXCESS CA 04/04/2019 DEANA ALARCON MD Ot I82.503 CHRONIC EMBLSM AND THOMBOS UNSP DEEP VEI 04/04/2019 DEANA ALARCON MD Ot K29. 70 GASTRITIS, UNSPECIFIED, WITHOUT BLEEDING 04/04/2019 DEANA ALARCON MD, Ot Z68. 39 BODY MASS INDEX (BMI) 39.0-39.9, ADULT 04/04/2019 DEANA ALARCON MD, Ot Z79. 01 PHYSICIAN CHIEF OF PATHOLOGY (CURRENT) USE OF ANTICOAGULANT 04/04/2019 DEANA ALARCON MD, Ot Z79. 82 SHELTER (CURRENT) USE OF ASPIRIN 04/04/2019 DEANA ALARCON MD, Ot Z79.899 OTHER SHELTER (CURRENT) DRUG THERAPY 04/04/2019 DEANA ALARCON MD, Ot D50. 0 IRON DEFICIENCY ANEMIA SECONDARY TO BLOO 04/04/2019 DEANA ALARCON MD, Ot D68. 51 ACTIVATED PROTEIN C RESISTANCE 04/04/2019 DEANA ALARCON MD, Ot E66. 01 MORBID (SEVERE) OBESITY DUE TO EXCESS CA 04/04/2019 DEANA ALARCON MD, Ot I82.503 CHRONIC EMBLSM AND THOMBOS UNSP DEEP VEI 04/04/2019 DEANA ALARCON MD, Ot K29. 70 GASTRITIS, UNSPECIFIED, WITHOUT BLEEDING 04/04/2019 DEANA ALARCON MD, Ot Z68. 39 BODY MASS INDEX (BMI) 39.0-39.9, ADULT 04/04/2019 DEANA ALARCON MD, Ot Z79. 01 SHELTER (CURRENT) USE OF ANTICOAGULANT 04/04/2019 DEANA ALARCON MD, Ot Z79. 82 SHELTER (CURRENT) USE OF ASPIRIN 04/04/2019 DEANA ALARCON MD, Ot Z79.899 OTHER SHELTER (CURRENT) DRUG THERAPY 04/05/2019 ZAIRE WESTFALL MD, Ot 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 04/05/2019 ZAIRE WESTFALL MD, Ot B96.5 PSEUDOMONAS (MALLEI) CAUSING DISEASES CL 04/05/2019 ZAIRE WESTFALL MD, Ot D68.51 ACTIVATED PROTEIN C RESISTANCE 04/05/2019 ZAIRE WESTFALL MD, Ot I82.503 CHRONIC EMBLSM AND THOMBOS UNSP DEEP VEI 04/05/2019 ZAIRE WESTFALL MD, Ot I87.333 CHRONIC VENOUS HTN W ULCER AND INFLAM OF 04/05/2019 ZAIRE WESTFALL MD Ot I89.0 LYMPHEDEMA, NOT ELSEWHERE CLASSIFIED 04/05/2019 LO MD, KIRTIE Ot L97.212 NON- PRESSURE CHRONIC ULCER OF RIGHT CALF 04/05/2019 ZAIRE WESTFALL MD Ot L97.222 NON- PRESSURE CHRONIC ULCER OF LEFT CALF 04/05/2019 ZAIRE WESTFALL MD, Ot L97.312 NON- PRS CHRONIC ULCER OF RIGHT ANKLE W F 04/05/2019 ZAIRE WESTFALL MD, Ot L97.522 NON- PRS CHRONIC ULCER OTH PRT LEFT FOOT 04/08/2019 ZAIRE WESTFALL MD, Ot 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 04/08/2019 ZAIRE WESTFALL MD, Ot B96.5 PSEUDOMONAS (MALLEI) CAUSING DISEASES CL 04/08/2019 ZAIRE WESTFALL MD, Ot D68.51 ACTIVATED PROTEIN C RESISTANCE 04/08/2019 ZAIRE WESTFALL MD, Ot I82.503 CHRONIC EMBLSM AND THOMBOS UNSP DEEP VEI 04/08/2019 ZAIRE WESTFALL MD Ot I87.333 CHRONIC VENOUS HTN W ULCER AND INFLAM OF 04/08/2019 ZAIRE WESTFALL MD Ot I89.0 LYMPHEDEMA, NOT ELSEWHERE CLASSIFIED 04/08/2019 ZAIRE WESTFALL MD, Ot L84 CORNS AND CALLOSITIES 04/08/2019 ZAIRE WESTFALL MD, Ot L97.212 NON- PRESSURE CHRONIC ULCER OF RIGHT CALF 04/08/2019 ZAIRE WESTFALL MD Ot L97.222 NON- PRESSURE CHRONIC ULCER OF LEFT CALF 04/08/2019 ZAIRE WESTFALL MD, Ot L97.312 NON- PRS CHRONIC ULCER OF RIGHT ANKLE W F 04/13/2019 MARIALUISA ALFARO MD, Ot 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 04/13/2019 MARIALUISA ALFARO MD Ot B96.5 PSEUDOMONAS (MALLEI) CAUSING DISEASES CL 04/13/2019 MARIALUISA ALFARO MD, Ot D68.51 ACTIVATED PROTEIN C RESISTANCE 04/13/2019 MARIALUISA ALFARO MD Ot I82.503 CHRONIC EMBLSM AND THOMBOS UNSP DEEP VEI 04/13/2019 MARIALUISA ALFARO MD Ot I87.333 CHRONIC VENOUS HTN W ULCER AND INFLAM OF 04/13/2019 MARIALUISA ALFARO MD Ot I89.0 LYMPHEDEMA, NOT ELSEWHERE CLASSIFIED 04/13/2019 MARIALUISA ALFARO MD Ot L 84 CORNS AND CALLOSITIES 04/13/2019 MARIALUISA ALFARO MD Ot L97.212 NON-PRESSURE CHRONIC ULCER OF RIGHT CALF 04/13/2019 MARIALUISA ALFARO MD Ot L97.222 NON-PRESSURE CHRONIC ULCER OF LEFT CALF 04/13/2019 MARIALUISA ALFARO MD Ot L97.312 NON-PRS CHRONIC ULCER OF RIGHT ANKLE W F 04/13/2019 MARIALUISA ALFARO MD Ot L97.522 NON-PRS CHRONIC ULCER OTH PRT LEFT FOOT 04/15/2019 ZAIRE WESTFALL MD, Ot 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 04/15/2019 ZAIRE WESTFALL MD, Ot B96.5 PSEUDOMONAS (MALLEI) CAUSING DISEASES CL 04/15/2019 ZAIRE WESTFALL MD Ot D68.51 ACTIVATED PROTEIN C RESISTANCE 04/15/2019 ZAIRE WESTFALL MD Ot I82.503 CHRONIC EMBLSM AND THOMBOS UNSP DEEP VEI 04/15/2019 ZAIRE WESTFALL MD Ot I87.333 CHRONIC VENOUS HTN W ULCER AND INFLAM OF 04/15/2019 ZAIRE WESTFALL MD Ot I89.0 LYMPHEDEMA, NOT ELSEWHERE CLASSIFIED 04/15/2019 ZAIRE WESTFALL MD Ot L84 CORNS AND CALLOSITIES 04/15/2019 ZAIRE WESTFALL MD Ot L97.212 NON- PRESSURE CHRONIC ULCER OF RIGHT CALF 04/15/2019 ZAIRE WESTFALL MD Ot L97.222 NON- PRESSURE CHRONIC ULCER OF LEFT CALF 04/15/2019 ZAIRE WESTFALL MD Ot L97.312 NON- PRS CHRONIC ULCER OF RIGHT ANKLE W F 04/15/2019 ZAIRE WESTFALL MD Ot L97.522 NON- PRS CHRONIC ULCER OTH PRT LEFT FOOT 04/19/2019 ZAIRE WESTFALL MD, Ot D68.51 ACTIVATED PROTEIN C RESISTANCE 04/19/2019 ZAIRE WESTFALL MD Ot I82.503 CHRONIC EMBLSM AND THOMBOS UNSP DEEP VEI 04/19/2019 ZAIRE WESTFALL MD Ot I89.0 LYMPHEDEMA, NOT ELSEWHERE CLASSIFIED 04/19/2019 ZAIRE WESTFALL MD Ot L97.212 NON- PRESSURE CHRONIC ULCER OF RIGHT CALF 04/19/2019 ZAIRE WESTFALL MD Ot L97.222 NON- PRESSURE CHRONIC ULCER OF LEFT CALF 04/19/2019 ZAIRE WESTFALL MD Ot L97.312 NON- PRS CHRONIC ULCER OF RIGHT ANKLE W F 04/19/2019 ZAIRE WESTFALL MD Ot L97.522 NON- PRS CHRONIC ULCER OTH PRT LEFT FOOT 04/20/2019 ZAIRE WESTFALL MD Ot 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 04/20/2019 ZAIRE WETSFALL MD Ot B96.5 PSEUDOMONAS (MALLEI) CAUSING DISEASES CL 04/20/2019 ZAIRE WESTFALL MD Ot D68.51 ACTIVATED PROTEIN C RESISTANCE 04/20/2019 ZAIER WESTFALL MD Ot I82.503 CHRONIC EMBLSM AND THOMBOS UNSP DEEP VEI 04/20/2019 ZAIRE WESTFALL MD Ot I87.333 CHRONIC VENOUS HTN W ULCER AND INFLAM OF 04/20/2019 ZAIRE WESTFALL MD Ot I89.0 LYMPHEDEMA, NOT ELSEWHERE CLASSIFIED 04/20/2019 ZAIRE WESTFALL MD Ot L84 CORNS AND CALLOSITIES 04/20/2019 ZAIRE WESTFALL MD Ot L97.212 NON- PRESSURE CHRONIC ULCER OF RIGHT CALF 04/20/2019 ZAIRE WESTFALL MD, Ot L97.222 NON- PRESSURE CHRONIC ULCER OF LEFT CALF 04/20/2019 ZAIRE WESTFALL MD, Ot L97.312 NON- PRS CHRONIC ULCER OF RIGHT ANKLE W F 04/20/2019 ZAIRE WESTFALL MD, Ot L97.522 NON- PRS CHRONIC ULCER OTH PRT LEFT FOOT 04/22/2019 ZAIRE WESTFALL MD, Ot 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 04/22/2019 ZAIRE WESTFALL MD Ot B96.5 PSEUDOMONAS (MALLEI) CAUSING DISEASES CL 04/22/2019 ZAIRE WESTFALL MD Ot D68.51 ACTIVATED PROTEIN C RESISTANCE 04/22/2019 ZAIRE WESTFALL MD Ot I82.503 CHRONIC EMBLSM AND THOMBOS UNSP DEEP VEI 04/22/2019 ZAIRE WESTFALL MD Ot I87.333 CHRONIC VENOUS HTN W ULCER AND INFLAM OF 04/22/2019 ZAIRE WESTFALL MD Ot I89.0 LYMPHEDEMA, NOT ELSEWHERE CLASSIFIED 04/22/2019 ZAIRE WESTFALL MD Ot L84 CORNS AND CALLOSITIES 04/22/2019 ZAIRE WESTFALL MD Ot L97.212 NON- PRESSURE CHRONIC ULCER OF RIGHT CALF 04/22/2019 ZAIRE WESTFALL MD, Ot L97.222 NON- PRESSURE CHRONIC ULCER OF LEFT CALF 04/22/2019 ZAIRE WESTFALL MD Ot L97.312 NON- PRS CHRONIC ULCER OF RIGHT ANKLE W F 04/22/2019 ZAIRE WESTFALL MD, Ot L97.522 NON- PRS CHRONIC ULCER OTH PRT LEFT FOOT 04/24/2019 MARIALUISA ALFARO MD Ot 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 04/24/2019 MARIALUISA ALFARO MD Ot B96.5 PSEUDOMONAS (MALLEI) CAUSING DISEASES CL 04/24/2019 MARIALUISA ALFARO MD Ot D68.51 ACTIVATED PROTEIN C RESISTANCE 04/24/2019 MARIALUISA ALFARO MD Ot I82.503 CHRONIC EMBLSM AND THOMBOS UNSP DEEP VEI 04/24/2019 MARIALUISA ALFARO MD Ot I87.333 CHRONIC VENOUS HTN W ULCER AND INFLAM OF 04/24/2019 MARIALUSIA ALFARO MD Ot I89.0 LYMPHEDEMA, NOT ELSEWHERE CLASSIFIED 04/24/2019 MARIALUISA ALFARO MD Ot L 84 CORNS AND CALLOSITIES 04/24/2019 MARIALUISA ALFARO MD Ot L97.212 NON-PRESSURE CHRONIC ULCER OF RIGHT CALF 04/24/2019 MARIALUISA ALFARO MD Ot L97.222 NON-PRESSURE CHRONIC ULCER OF LEFT CALF 04/24/2019 MARIALUISA ALFARO MD Ot L97.312 NON-PRS CHRONIC ULCER OF RIGHT ANKLE W F 04/24/2019 MARIALUISA ALFARO MD Ot L97.522 NON-PRS CHRONIC ULCER OTH PRT LEFT FOOT 04/26/2019 MARIALUISA ALFARO MD Ot 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 04/26/2019 MARIALUISA ALFARO MD Ot B96.5 PSEUDOMONAS (MALLEI) CAUSING DISEASES CL 04/26/2019 MARIALUISA ALFARO MD Ot D68.51 ACTIVATED PROTEIN C RESISTANCE 04/26/2019 MARIALUISA ALFARO MD Ot I82.503 CHRONIC EMBLSM AND THOMBOS UNSP DEEP VEI 04/26/2019 MARIALUISA ALFARO MD Ot I87.333 CHRONIC VENOUS HTN W ULCER AND INFLAM OF 04/26/2019 MARIALUISA ALFARO MD Ot I89.0 LYMPHEDEMA, NOT ELSEWHERE CLASSIFIED 04/26/2019 MARIALUISA ALFARO MD Ot L 84 CORNS AND CALLOSITIES 04/26/2019 MARIALUISA ALFARO MD Ot L97.212 NON-PRESSURE CHRONIC ULCER OF RIGHT CALF 04/26/2019 MARIALUISA ALFARO MD Ot L97.222 NON-PRESSURE CHRONIC ULCER OF LEFT CALF 04/26/2019 MARIALUISA ALFARO MD Ot L97.312 NON-PRS CHRONIC ULCER OF RIGHT ANKLE W F 04/26/2019 MARIALUISA ALFARO MD Ot L97.522 NON-PRS CHRONIC ULCER OTH PRT LEFT FOOT 05/02/2019 ZAIRE WESTFALL MD Ot 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 05/02/2019 ZAIRE WESTFALL MD Ot B96.5 PSEUDOMONAS (MALLEI) CAUSING DISEASES CL 05/02/2019 ZAIRE WESTFALL MD Ot D68.51 ACTIVATED PROTEIN C RESISTANCE 05/02/2019 ZAIRE WESTFALL MD Ot I82.503 CHRONIC EMBLSM AND THOMBOS UNSP DEEP VEI 05/02/2019 ZAIRE WESTFALL MD Ot I87.333 CHRONIC VENOUS HTN W ULCER AND INFLAM OF 05/02/2019 ZAIRE WESTFALL MD Ot I89.0 LYMPHEDEMA, NOT ELSEWHERE CLASSIFIED 05/02/2019 ZAIRE WESTFALL MD Ot I96 GANGRENE, NOT ELSEWHERE CLASSIFIED 05/02/2019 ZAIRE WESTFALL MD Ot L84 CORNS AND CALLOSITIES 05/02/2019 ZAIRE WESTFALL MD Ot L97.212 NON- PRESSURE CHRONIC ULCER OF RIGHT CALF 05/02/2019 ZAIRE WESTFALL MD Ot L97.222 NON- PRESSURE CHRONIC ULCER OF LEFT CALF 05/02/2019 ZAIRE WESTFALL MD Ot L97.322 NON- PRESSURE CHRONIC ULCER OF LEFT ANKLE 05/02/2019 ZAIRE WESTFALL MD Ot L97.522 NON- PRS CHRONIC ULCER OTH PRT LEFT FOOT 05/09/2019 ZAIRE WESTFALL MD Ot 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 05/09/2019 ZAIRE WESTFALL MD Ot B96.5 PSEUDOMONAS (MALLEI) CAUSING DISEASES CL 05/09/2019 ZAIRE WESTFALL MD Ot D64.9 ANEMIA, UNSPECIFIED 05/09/2019 ZAIRE WESTFALL MD Ot D68.51 ACTIVATED PROTEIN C RESISTANCE 05/09/2019 ZAIRE WESTFALL MD Ot E44.1 MILD PROTEIN-CALORIE MALNUTRITION 05/09/2019 ZAIRE WESTFALL MD Ot I82.503 CHRONIC EMBLSM AND THOMBOS UNSP DEEP VEI 05/09/2019 ZAIRE WESTFALL MD Ot I87.333 CHRONIC VENOUS HTN W ULCER AND INFLAM OF 05/09/2019 ZAIRE WESTFALL MD Ot I89.0 LYMPHEDEMA, NOT ELSEWHERE CLASSIFIED 05/09/2019 ZAIRE WESTFALL MD Ot I96 GANGRENE, NOT ELSEWHERE CLASSIFIED 05/09/2019 ZAIRE WESTFALL MD Ot L84 CORNS AND CALLOSITIES 05/09/2019 ZAIRE WESTFALL MD Ot L97.212 NON- PRESSURE CHRONIC ULCER OF RIGHT CALF 05/09/2019 ZAIRE WESTFALL MD Ot L97.222 NON- PRESSURE CHRONIC ULCER OF LEFT CALF 05/09/2019 ZAIRE WESTFALL MD, Ot L97.312 NON- PRS CHRONIC ULCER OF RIGHT ANKLE W F 05/09/2019 ZAIRE WESTFALL MD, Ot L97.522 NON- PRS CHRONIC ULCER OTH PRT LEFT FOOT 05/11/2019 SHANI HUTCHINSON MD, Ot 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 05/11/2019 SHANI HUTCHINSON MD, Ot B96 .5 PSEUDOMONAS (MALLEI) CAUSING DISEASES CL 05/11/2019 SHNAI HUTCHINSON MD, Ot D64 .9 ANEMIA, UNSPECIFIED 05/11/2019 SHANI HUTCHINSON MD, Ot D68.51 ACTIVATED PROTEIN C RESISTANCE 05/11/2019 SHANI HUTCHINSON MD, Ot I82.503 CHRONIC EMBLSM AND THOMBOS UNSP DEEP VEI 05/11/2019 SHANI HUTCHINSON MD Ot I87.333 CHRONIC VENOUS HTN W ULCER AND INFLAM OF 05/11/2019 SHANI HUTCHINSON MD Ot I89 .0 LYMPHEDEMA, NOT ELSEWHERE CLASSIFIED 05/11/2019 SHANI HUTCHINSON MD Ot I96 GANGRENE, NOT ELSEWHERE CLASSIFIED 05/11/2019 SHANI HUTCHINSON MD Ot L97.212 NON-PRESSURE CHRONIC ULCER OF RIGHT CALF 05/11/2019 SHANI HUTCHINSON MD Ot L97.222 NON-PRESSURE CHRONIC ULCER OF LEFT CALF 05/11/2019 SHANI HUTCHINSON MD Ot L97.312 NON-PRS CHRONIC ULCER OF RIGHT ANKLE W F 05/11/2019 SHANI HUTCHINSON MD Ot L97.522 NON-PRS CHRONIC ULCER OTH PRT LEFT FOOT 05/16/2019 SHANI HUTCHINSON MD Ot I82.503 CHRONIC EMBLSM AND THOMBOS UNSP DEEP VEI 05/16/2019 SHANI HUTCHINSON MD Ot I87.313 CHRONIC VENOUS HYPERTENSION W ULCER OF B 05/16/2019 SHANI HUTCHINSON MD Ot L97.212 NON-PRESSURE CHRONIC ULCER OF RIGHT CALF 05/16/2019 SHANI HUTCHINSON MD Ot L97.222 NON-PRESSURE CHRONIC ULCER OF LEFT CALF 05/16/2019 SHANI HUTCHINSON MD Ot L97.312 NON-PRS CHRONIC ULCER OF RIGHT ANKLE W F 05/16/2019 SHANI HUTCHINSON MD Ot L97.522 NON-PRS CHRONIC ULCER OTH PRT LEFT FOOT 05/19/2019 SHANI HUTCHINSON MD, Ot 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 05/19/2019 SHANI HUTCHINSON MD, Ot B96 .5 PSEUDOMONAS (MALLEI) CAUSING DISEASES CL 05/19/2019 SHANI HUTCHINSON MD Ot D64 .9 ANEMIA, UNSPECIFIED 05/19/2019 SHANI HUTCHINSON MD, Ot D68.51 ACTIVATED PROTEIN C RESISTANCE 05/19/2019 SHANI HUTCHINSON MD, Ot I82.503 CHRONIC EMBLSM AND THOMBOS UNSP DEEP VEI 05/19/2019 SHANI HUTCHINSON MD, Ot I87.313 CHRONIC VENOUS HYPERTENSION W ULCER OF B 05/19/2019 SHANI HUTCHINSON MD, Ot I89 .0 LYMPHEDEMA, NOT ELSEWHERE CLASSIFIED 05/19/2019 SHANI HUTCHINSON MD, Ot L97.212 NON-PRESSURE CHRONIC ULCER OF RIGHT CALF 05/19/2019 SHANI HUTCHINSON MD, Ot L97.222 NON-PRESSURE CHRONIC ULCER OF LEFT CALF 05/19/2019 SHANI HUTCHINSON MD, Ot L97.312 NON-PRS CHRONIC ULCER OF RIGHT ANKLE W F 05/19/2019 SHANI HUTCHINSON MD, Ot L97.522 NON-PRS CHRONIC ULCER OTH PRT LEFT FOOT 05/19/2019 ZAIRE WESTFALL MD, Ot 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 05/19/2019 ZAIRE WESTFALL MD, Ot B96.5 PSEUDOMONAS (MALLEI) CAUSING DISEASES CL 05/19/2019 ZAIRE WESTFALL MD, Ot D68.51 ACTIVATED PROTEIN C RESISTANCE 05/19/2019 ZAIRE WESTFALL MD, Ot I82.503 CHRONIC EMBLSM AND THOMBOS UNSP DEEP VEI 05/19/2019 ZAIRE WESTFALL MD, Ot I87.333 CHRONIC VENOUS HTN W ULCER AND INFLAM OF 05/19/2019 ZAIRE WESTFALL MD, Ot I89.0 LYMPHEDEMA, NOT ELSEWHERE CLASSIFIED 05/19/2019 ZAIRE WESTFALL MD, Ot L84 CORNS AND CALLOSITIES 05/19/2019 ZAIRE WESTFALL MD, Ot L97.212 NON- PRESSURE CHRONIC ULCER OF RIGHT CALF 05/19/2019 ZAIRE WESTFALL MD Ot L97.222 NON- PRESSURE CHRONIC ULCER OF LEFT CALF 05/19/2019 ZAIRE WESTFALL MD Ot L97.312 NON- PRS CHRONIC ULCER OF RIGHT ANKLE W F 05/19/2019 ZAIRE WESTFALL MD Ot L97.522 NON- PRS CHRONIC ULCER OTH PRT LEFT FOOT 05/19/2019 MARIALUISA ALFARO MD Ot 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 05/19/2019 MARIALUISA ALFARO MD Ot B96.5 PSEUDOMONAS (MALLEI) CAUSING DISEASES CL 05/19/2019 MARIALUISA ALFARO MD Ot D68.51 ACTIVATED PROTEIN C RESISTANCE 05/19/2019 MARIALUISA ALFARO MD Ot I82.503 CHRONIC EMBLSM AND THOMBOS UNSP DEEP VEI 05/19/2019 MARIALUISA ALFARO MD Ot I87.333 CHRONIC VENOUS HTN W ULCER AND INFLAM OF 05/19/2019 MARIALUISA ALFARO MD Ot I89.0 LYMPHEDEMA, NOT ELSEWHERE CLASSIFIED 05/19/2019 MARIALUISA ALFARO MD Ot L 84 CORNS AND CALLOSITIES 05/19/2019 MARIALUISA ALFARO MD Ot L97.212 NON-PRESSURE CHRONIC ULCER OF RIGHT CALF 05/19/2019 MARIALUISA ALFARO MD Ot L97.222 NON-PRESSURE CHRONIC ULCER OF LEFT CALF 05/19/2019 MARIALUISA ALFARO MD Ot L97.312 NON-PRS CHRONIC ULCER OF RIGHT ANKLE W F 05/19/2019 MARIALUISA ALFARO MD Ot L97.522 NON-PRS CHRONIC ULCER OTH PRT LEFT FOOT 05/19/2019 ZAIRE WESTFALL MD, Ot 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 05/19/2019 ZAIRE WESTFALL MD, Ot B96.5 PSEUDOMONAS (MALLEI) CAUSING DISEASES CL 05/19/2019 ZAIRE WESTFALL MD, Ot D68.51 ACTIVATED PROTEIN C RESISTANCE 05/19/2019 ZAIRE WESTFALL MD Ot I82.503 CHRONIC EMBLSM AND THOMBOS UNSP DEEP VEI 05/19/2019 ZAIRE WESTFALL MD Ot I87.333 CHRONIC VENOUS HTN W ULCER AND INFLAM OF 05/19/2019 ZAIRE WESTFALL MD Ot I89.0 LYMPHEDEMA, NOT ELSEWHERE CLASSIFIED 05/19/2019 ZAIRE WESTFALL MD Ot L84 CORNS AND CALLOSITIES 05/19/2019 ZAIRE WESTFALL MD Ot L97.212 NON- PRESSURE CHRONIC ULCER OF RIGHT CALF 05/19/2019 ZAIRE WESTFALL MD Ot L97.222 NON- PRESSURE CHRONIC ULCER OF LEFT CALF 05/19/2019 ZAIRE WESTFALL MD Ot L97.312 NON- PRS CHRONIC ULCER OF RIGHT ANKLE W F 05/19/2019 ZAIRE WESTFALL MD Ot L97.522 NON- PRS CHRONIC ULCER OTH PRT LEFT FOOT 05/20/2019 SHANI HUTCHINSON MD Ot 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 05/20/2019 SHANI HUTCHINSON MD, Ot B96 .5 PSEUDOMONAS (MALLEI) CAUSING DISEASES CL 05/20/2019 SHANI HUTCHINSON MD, Ot D64 .9 ANEMIA, UNSPECIFIED 05/20/2019 SHANI HUTCHINSON MD, Ot D68.51 ACTIVATED PROTEIN C RESISTANCE 05/20/2019 SHANI HUTCHINSON MD Ot I82.503 CHRONIC EMBLSM AND THOMBOS UNSP DEEP VEI 05/20/2019 SHANI HUTCHINSON MD Ot I87.333 CHRONIC VENOUS HTN W ULCER AND INFLAM OF 05/20/2019 SHANI HUTCHINSON MD, Ot I89 .0 LYMPHEDEMA, NOT ELSEWHERE CLASSIFIED 05/20/2019 SHANI HUTCHINSON MD, Ot I96 GANGRENE, NOT ELSEWHERE CLASSIFIED 05/20/2019 SHANI HUTCHINSON MD Ot L97.212 NON-PRESSURE CHRONIC ULCER OF RIGHT CALF 05/20/2019 SHANI HUTCHINSON MD Ot L97.222 NON-PRESSURE CHRONIC ULCER OF LEFT CALF 05/20/2019 SHANI HUTCHINSON MD Ot L97.312 NON-PRS CHRONIC ULCER OF RIGHT ANKLE W F 05/20/2019 SHANI HUTCHINSON MD Ot L97.522 NON-PRS CHRONIC ULCER OTH PRT LEFT FOOT 05/23/2019 SHANI HUTCHINSON MD, Ot D68.51 ACTIVATED PROTEIN C RESISTANCE 05/23/2019 SHANI HUTCHINSON MD Ot I82.503 CHRONIC EMBLSM AND THOMBOS UNSP DEEP VEI 05/23/2019 SHANI HUTCHINSON MD Ot I87.333 CHRONIC VENOUS HTN W ULCER AND INFLAM OF 05/23/2019 SHANI HUTCHINSON MD Ot I89 .0 LYMPHEDEMA, NOT ELSEWHERE CLASSIFIED 05/23/2019 SHANI HUTCHINSON MD Ot I96 GANGRENE, NOT ELSEWHERE CLASSIFIED 05/23/2019 SHANI HUTCHINSON MD Ot L97.212 NON-PRESSURE CHRONIC ULCER OF RIGHT CALF 05/23/2019 SHANI HUTCHINSON MD Ot L97.222 NON-PRESSURE CHRONIC ULCER OF LEFT CALF 05/23/2019 SHANI HUTCHINSON MD Ot L97.312 NON-PRS CHRONIC ULCER OF RIGHT ANKLE W F 05/23/2019 SHANI HUTCHINSON MD Ot L97.522 NON-PRS CHRONIC ULCER OTH PRT LEFT FOOT 05/23/2019 ZAIRE WESTFALL MD Ot 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 05/23/2019 ZAIRE WESTFALL MD, Ot B96.5 PSEUDOMONAS (MALLEI) CAUSING DISEASES CL 05/23/2019 ZAIRE WESTFALL MD Ot D68.51 ACTIVATED PROTEIN C RESISTANCE 05/23/2019 ZAIRE WESTFALL MD Ot I82.503 CHRONIC EMBLSM AND THOMBOS UNSP DEEP VEI 05/23/2019 ZAIRE WESTFALL MD Ot I87.333 CHRONIC VENOUS HTN W ULCER AND INFLAM OF 05/23/2019 ZAIRE WESTFALL MD Ot I89.0 LYMPHEDEMA, NOT ELSEWHERE CLASSIFIED 05/23/2019 ZAIRE WESTFALL MD, Ot L97.212 NON- PRESSURE CHRONIC ULCER OF RIGHT CALF 05/23/2019 ZAIRE WESTFALL MD, Ot L97.222 NON- PRESSURE CHRONIC ULCER OF LEFT CALF 05/23/2019 ZAIRE WESTFALL MD, Ot L97.312 NON- PRS CHRONIC ULCER OF RIGHT ANKLE W F 05/23/2019 ZAIRE WESTFALL MD, Ot L97.522 NON- PRS CHRONIC ULCER OTH PRT LEFT FOOT 05/23/2019 ZAIRE WESTFALL MD, Ot 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 05/23/2019 ZAIRE WESTFALL MD, Ot B96.5 PSEUDOMONAS (MALLEI) CAUSING DISEASES CL 05/23/2019 ZAIRE WESTFALL MD Ot D64.9 ANEMIA, UNSPECIFIED 05/23/2019 ZAIRE WESTFALL MD Ot D68.51 ACTIVATED PROTEIN C RESISTANCE 05/23/2019 ZAIRE WESTFALL MD Ot E44.1 MILD PROTEIN-CALORIE MALNUTRITION 05/23/2019 ZAIRE WESTFALL MD Ot I82.503 CHRONIC EMBLSM AND THOMBOS UNSP DEEP VEI 05/23/2019 ZAIRE WESTFALL MD Ot I87.333 CHRONIC VENOUS HTN W ULCER AND INFLAM OF 05/23/2019 ZAIRE WESTFALL MD Ot I89.0 LYMPHEDEMA, NOT ELSEWHERE CLASSIFIED 05/23/2019 ZAIRE WESTFALL MD Ot I96 GANGRENE, NOT ELSEWHERE CLASSIFIED 05/23/2019 ZAIRE WESTFALL MD Ot L84 CORNS AND CALLOSITIES 05/23/2019 ZAIRE WESTFALL MD, Ot L97.212 NON- PRESSURE CHRONIC ULCER OF RIGHT CALF 05/23/2019 ZAIRE WESTFALL MD Ot L97.222 NON- PRESSURE CHRONIC ULCER OF LEFT CALF 05/23/2019 ZAIRE WESTFALL MD, Ot L97.312 NON- PRS CHRONIC ULCER OF RIGHT ANKLE W F 05/23/2019 ZAIRE WESTFALL MD, Ot L97.522 NON- PRS CHRONIC ULCER OTH PRT LEFT FOOT 05/24/2019 SHANI HUTCHINSON MD Ot 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 05/24/2019 SHANI HUTCHINSON MD Ot B96 .5 PSEUDOMONAS (MALLEI) CAUSING DISEASES CL 05/24/2019 SHANI HUTCHINSON MD Ot D64 .9 ANEMIA, UNSPECIFIED 05/24/2019 SHANI HUTCHINSON MD, Ot D68.51 ACTIVATED PROTEIN C RESISTANCE 05/24/2019 SHANI HUTCHINSON MD Ot I82.503 CHRONIC EMBLSM AND THOMBOS UNSP DEEP VEI 05/24/2019 SHANI HUTCHINSON MD Ot I87.313 CHRONIC VENOUS HYPERTENSION W ULCER OF B 05/24/2019 SHANI HUTCHINSON MD Ot I89 .0 LYMPHEDEMA, NOT ELSEWHERE CLASSIFIED 05/24/2019 SHANI HUTCHINSON MD Ot L97.212 NON-PRESSURE CHRONIC ULCER OF RIGHT CALF 05/24/2019 SHANI HUTCHINSON MD Ot L97.222 NON-PRESSURE CHRONIC ULCER OF LEFT CALF 05/24/2019 SHANI HUTCHINSON MD Ot L97.312 NON-PRS CHRONIC ULCER OF RIGHT ANKLE W F 05/24/2019 SHANI HUTCHINSON MD Ot L97.522 NON-PRS CHRONIC ULCER OTH PRT LEFT FOOT 05/25/2019 SHANI HUTCHINSON MD, Ot 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 05/25/2019 SHANI HUTCHINSON MD Ot B96 .5 PSEUDOMONAS (MALLEI) CAUSING DISEASES CL 05/25/2019 SHANI HUTCHINSON MD Ot D64 .9 ANEMIA, UNSPECIFIED 05/25/2019 SHANI HUTCHINSON MD Ot D68.51 ACTIVATED PROTEIN C RESISTANCE 05/25/2019 SHANI HUTCHINSON MD Ot I82.503 CHRONIC EMBLSM AND THOMBOS UNSP DEEP VEI 05/25/2019 SHANI HUTCHINSON MD Ot I87.313 CHRONIC VENOUS HYPERTENSION W ULCER OF B 05/25/2019 SHANI HUTCHINSON MD, Ot I89 .0 LYMPHEDEMA, NOT ELSEWHERE CLASSIFIED 05/25/2019 SHANI HUTCHINSON MD Ot L97.212 NON-PRESSURE CHRONIC ULCER OF RIGHT CALF 05/25/2019 SHANI HUTCHINSON MD Ot L97.222 NON-PRESSURE CHRONIC ULCER OF LEFT CALF 05/25/2019 SHANI HUTCHINSON MD Ot L97.312 NON-PRS CHRONIC ULCER OF RIGHT ANKLE W F 05/25/2019 SHANI HUTCHINSON MD, Ot L97.522 NON-PRS CHRONIC ULCER OTH PRT LEFT FOOT 05/25/2019 SHANI HUTCHINSON MD Ot 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 05/25/2019 SHANI HUTCHINSON MD Ot B96 .5 PSEUDOMONAS (MALLEI) CAUSING DISEASES CL 05/25/2019 SHANI HUTCHINSON MD, Ot D64 .9 ANEMIA, UNSPECIFIED 05/25/2019 SHANI HUTCHINSON MD Ot D68.51 ACTIVATED PROTEIN C RESISTANCE 05/25/2019 SHANI HUTCHINSON MD Ot I82.503 CHRONIC EMBLSM AND THOMBOS UNSP DEEP VEI 05/25/2019 SHANI HUTCHINSON MD Ot I87.313 CHRONIC VENOUS HYPERTENSION W ULCER OF B 05/25/2019 SHANI HUTCHINSON MD Ot I89 .0 LYMPHEDEMA, NOT ELSEWHERE CLASSIFIED 05/25/2019 SHANI HUTCHINSON MD, Ot L97.212 NON-PRESSURE CHRONIC ULCER OF RIGHT CALF 05/25/2019 SHANI HUTCHINSON MD Ot L97.222 NON-PRESSURE CHRONIC ULCER OF LEFT CALF 05/25/2019 SHANI HUTCHINSON MD Ot L97.312 NON-PRS CHRONIC ULCER OF RIGHT ANKLE W F 05/25/2019 SHANI HUTCHINSON MD Ot L97.522 NON-PRS CHRONIC ULCER OTH PRT LEFT FOOT 05/26/2019 SHANI HUTCHINSON MD Ot 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 05/26/2019 SHANI HUTCHINSON MD Ot B96 .5 PSEUDOMONAS (MALLEI) CAUSING DISEASES CL 05/26/2019 SHANI HUTCHINSON MD Ot D64 .9 ANEMIA, UNSPECIFIED 05/26/2019 SHANI HUTCHINSON MD Ot D68.51 ACTIVATED PROTEIN C RESISTANCE 05/26/2019 SHANI HUTCHINSON MD Ot I82.503 CHRONIC EMBLSM AND THOMBOS UNSP DEEP VEI 05/26/2019 SHANI HUTCHINSON MD Ot I87.333 CHRONIC VENOUS HTN W ULCER AND INFLAM OF 05/26/2019 SHANI HUTCHINSON MD, Ot I89 .0 LYMPHEDEMA, NOT ELSEWHERE CLASSIFIED 05/26/2019 SHANI HUTCHINSON MD, Ot I96 GANGRENE, NOT ELSEWHERE CLASSIFIED 05/26/2019 SHANI HUTCHINSON MD, Ot L97.212 NON-PRESSURE CHRONIC ULCER OF RIGHT CALF 05/26/2019 SHANI HUTCHINSON MD, Ot L97.222 NON-PRESSURE CHRONIC ULCER OF LEFT CALF 05/26/2019 SHANI HUTCHINSON MD, Ot L97.312 NON-PRS CHRONIC ULCER OF RIGHT ANKLE W F 05/26/2019 SHANI HUTCHINSON MD, Ot L97.522 NON-PRS CHRONIC ULCER OTH PRT LEFT FOOT 05/27/2019 SHANI HUTCHINSON MD, Ot 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 05/27/2019 SHANI HUTCHINSON MD, Ot B96 .5 PSEUDOMONAS (MALLEI) CAUSING DISEASES CL 05/27/2019 SHANI HUTCHINSON MD, Ot D64 .9 ANEMIA, UNSPECIFIED 05/27/2019 SHANI HUTCHINSON MD, Ot D68.51 ACTIVATED PROTEIN C RESISTANCE 05/27/2019 SHANI HUTCHINSON MD Ot I82.503 CHRONIC EMBLSM AND THOMBOS UNSP DEEP VEI 05/27/2019 SHANI HUTCHINSON MD, Ot I87.313 CHRONIC VENOUS HYPERTENSION W ULCER OF B 05/27/2019 SHANI HUTCHINSON MD, Ot I89 .0 LYMPHEDEMA, NOT ELSEWHERE CLASSIFIED 05/27/2019 SHANI HUTCHINSON MD Ot L97.212 NON-PRESSURE CHRONIC ULCER OF RIGHT CALF 05/27/2019 SHANI HUTCHINSON MD Ot L97.222 NON-PRESSURE CHRONIC ULCER OF LEFT CALF 05/27/2019 SHANI HUTCHINSON MD Ot L97.312 NON-PRS CHRONIC ULCER OF RIGHT ANKLE W F 05/27/2019 SHANI HUTCHINSON MD, Ot L97.522 NON-PRS CHRONIC ULCER OTH PRT LEFT FOOT 05/27/2019 DEANA ALARCON MD Ot D50. 0 IRON DEFICIENCY ANEMIA SECONDARY TO BLOO 05/27/2019 DEANA ALARCON MD, Ot D68. 51 ACTIVATED PROTEIN C RESISTANCE 05/27/2019 DEANA ALARCON MD Ot E66. 01 MORBID (SEVERE) OBESITY DUE TO EXCESS CA 05/27/2019 DEANA ALARCON MD, Ot I82.503 CHRONIC EMBLSM AND THOMBOS UNSP DEEP VEI 05/27/2019 DEANA ALARCON MD Ot K29. 70 GASTRITIS, UNSPECIFIED, WITHOUT BLEEDING 05/27/2019 DEANA ALARCON MD, Ot Z68. 39 BODY MASS INDEX (BMI) 39.0-39.9, ADULT 05/27/2019 DEANA ALARCON MD, Ot Z79. 01 SHELTER (CURRENT) USE OF ANTICOAGULANT 05/27/2019 DEANA ALARCON MD, Ot Z79. 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 06/01/2019 SHANI HUTCHINSON MD, Ot B96 .5 PSEUDOMONAS (MALLEI) CAUSING DISEASES CL 06/01/2019 SHANI HUTCHINSON MD, Ot D64 .9 ANEMIA, UNSPECIFIED 06/01/2019 SHANI HUTCHINSON MD, Ot D68.51 ACTIVATED PROTEIN C RESISTANCE 06/01/2019 SHANI HUTCHINSON MD Ot I82.503 CHRONIC EMBLSM AND THOMBOS UNSP DEEP VEI 06/01/2019 SHANI HUTCHINSON MD Ot I87.313 CHRONIC VENOUS HYPERTENSION W ULCER OF B 06/01/2019 SHANI HUTCHINSON MD Ot I89 .0 LYMPHEDEMA, NOT ELSEWHERE CLASSIFIED 06/01/2019 SHANI HUTCHINSON MD Ot L97.212 NON-PRESSURE CHRONIC ULCER OF RIGHT CALF 06/01/2019 SHANI HUTCHINSON MD Ot L97.222 NON-PRESSURE CHRONIC ULCER OF LEFT CALF 06/01/2019 SHANI HUTCHINSON MD Ot L97.312 NON-PRS CHRONIC ULCER OF RIGHT ANKLE W F 06/01/2019 SHANI HUTCHINSON MD Ot L97.522 NON-PRS CHRONIC ULCER OTH PRT LEFT FOOT 06/01/2019 SHANI HUTCHINSON MD, Ot 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 06/01/2019 SHANI HUTCHINSON MD, Ot B96 .5 PSEUDOMONAS (MALLEI) CAUSING DISEASES CL 06/01/2019 SHANI HUTCHINSON MD, Ot D64 .9 ANEMIA, UNSPECIFIED 06/01/2019 SHANI HUTCHINSON MD, Ot D68.51 ACTIVATED PROTEIN C RESISTANCE 06/01/2019 SHANI HUTCHINSON MD, Ot I82.503 CHRONIC EMBLSM AND THOMBOS UNSP DEEP VEI 06/01/2019 SHANI HUTCHINSON MD Ot I87.333 CHRONIC VENOUS HTN W ULCER AND INFLAM OF 06/01/2019 SHANI HUTCHINSON MD Ot I89 .0 LYMPHEDEMA, NOT ELSEWHERE CLASSIFIED 06/01/2019 SHANI HUTCHINSON MD, Ot L97.212 NON-PRESSURE CHRONIC ULCER OF RIGHT CALF 06/01/2019 SHANI HUTCHINSON MD, Ot L97.222 NON-PRESSURE CHRONIC ULCER OF LEFT CALF 06/01/2019 SHANI HUTCHINSON MD, Ot L97.312 NON-PRS CHRONIC ULCER OF RIGHT ANKLE W F 06/01/2019 SHANI HUTCHINSON MD, Ot L97.522 NON-PRS CHRONIC ULCER OTH PRT LEFT FOOT 06/01/2019 SHANI HUTCHNISON MD, Ot D64 .9 ANEMIA, UNSPECIFIED 06/01/2019 SHANI HUTCHINSON MD, Ot I73 .9 PERIPHERAL VASCULAR DISEASE, UNSPECIFIED 06/01/2019 SHANI HUTCHINSON MD Ot I82.503 CHRONIC EMBLSM AND THOMBOS UNSP DEEP VEI 06/01/2019 SHANI HUTCHINSON MD Ot L97.229 NON-PRESSURE CHRONIC ULCER OF LEFT CALF 06/01/2019 SHANI HUTCHINSON MD Ot I82.503 CHRONIC EMBLSM AND THOMBOS UNSP DEEP VEI 06/01/2019 SHANI HUTCHINSON MD Ot I87.313 CHRONIC VENOUS HYPERTENSION W ULCER OF B 06/01/2019 SHANI HUTCHINSON MD Ot L97.212 NON-PRESSURE CHRONIC ULCER OF RIGHT CALF 06/01/2019 SHANI HUTCHINSON MD Ot L97.222 NON-PRESSURE CHRONIC ULCER OF LEFT CALF 06/01/2019 SHANI HUTCHINSON MD Ot L97.312 NON-PRS CHRONIC ULCER OF RIGHT ANKLE W F 06/01/2019 SHANI HUTCHINSON MD, Ot L97.522 NON-PRS CHRONIC ULCER OTH PRT LEFT FOOT 06/01/2019 SHANI HUTCHINSON MD Ot 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 06/01/2019 SHANI HUTCHINSON MD Ot B96 .5 PSEUDOMONAS (MALLEI) CAUSING DISEASES CL 06/01/2019 SHANI HUTCHINSON MD, Ot D64 .9 ANEMIA, UNSPECIFIED 06/01/2019 SHANI HUTCHINSON MD, Ot D68.51 ACTIVATED PROTEIN C RESISTANCE 06/01/2019 SHANI HUTCHINSON MD, Ot I82.503 CHRONIC EMBLSM AND THOMBOS UNSP DEEP VEI 06/01/2019 SHANI HUTCHINSON MD Ot I87.333 CHRONIC VENOUS HTN W ULCER AND INFLAM OF 06/01/2019 SHANI HUTCHINSON MD, Ot I89 .0 LYMPHEDEMA, NOT ELSEWHERE CLASSIFIED 06/01/2019 SHANI HUTCHINSON MD, Ot I96 GANGRENE, NOT ELSEWHERE CLASSIFIED 06/01/2019 SHANI HUTCHINSON MD, Ot L97.212 NON-PRESSURE CHRONIC ULCER OF RIGHT CALF 06/01/2019 SHANI HUTCHINSON MD, Ot L97.222 NON-PRESSURE CHRONIC ULCER OF LEFT CALF 06/01/2019 SHANI HUTCHINSON MD, Ot L97.312 NON-PRS CHRONIC ULCER OF RIGHT ANKLE W F 06/01/2019 SHANI HUTCHINSON MD, Ot L97.522 NON-PRS CHRONIC ULCER OTH PRT LEFT FOOT 06/01/2019 SHANI HUTCHINSON MD, Ot 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 06/01/2019 SHANI HUTCHINSON MD, Ot B96 .5 PSEUDOMONAS (MALLEI) CAUSING DISEASES CL 06/01/2019 SHANI HUTCHINSON MD, Ot D64 .9 ANEMIA, UNSPECIFIED 06/01/2019 SHANI HUTCHINSON MD, Ot D68.51 ACTIVATED PROTEIN C RESISTANCE 06/01/2019 SHANI HUTCHINSON MD, Ot I82.503 CHRONIC EMBLSM AND THOMBOS UNSP DEEP VEI 06/01/2019 SHANI HUTCHINSON MD Ot I87.313 CHRONIC VENOUS HYPERTENSION W ULCER OF B 06/01/2019 SHANI HUTCHINSON MD, Ot I89 .0 LYMPHEDEMA, NOT ELSEWHERE CLASSIFIED 06/01/2019 SHANI HUTCHINSON MD Ot L97.212 NON-PRESSURE CHRONIC ULCER OF RIGHT CALF 06/01/2019 SHANI HUTCHINSON MD, Ot L97.222 NON-PRESSURE CHRONIC ULCER OF LEFT CALF 06/01/2019 SHANI HUTCHINSON MD, Ot L97.312 NON-PRS CHRONIC ULCER OF RIGHT ANKLE W F 06/01/2019 SHANI HUTCHINSON MD, Ot L97.522 NON-PRS CHRONIC ULCER OTH PRT LEFT FOOT 06/01/2019 EVANGELINA MD, SHANI G Ot 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 06/01/2019 SHANI HUTCHINSON MD Ot B96 .5 PSEUDOMONAS (MALLEI) CAUSING DISEASES CL 06/01/2019 SHANI HUTCHINSON MD Ot D64 .9 ANEMIA, UNSPECIFIED 06/01/2019 SHANI HUTCHINSON MD Ot D68.51 ACTIVATED PROTEIN C RESISTANCE 06/01/2019 SHANI HUTCHINSON MD Ot I82.503 CHRONIC EMBLSM AND THOMBOS UNSP DEEP VEI 06/01/2019 SHANI HUTCHINSON MD Ot I87.313 CHRONIC VENOUS HYPERTENSION W ULCER OF B 06/01/2019 SHANI HUTCHINSON MD Ot I89 .0 LYMPHEDEMA, NOT ELSEWHERE CLASSIFIED 06/01/2019 SHANI HUTCHINSON MD Ot L97.212 NON-PRESSURE CHRONIC ULCER OF RIGHT CALF 06/01/2019 SHANI HUTCHINSON MD Ot L97.222 NON-PRESSURE CHRONIC ULCER OF LEFT CALF 06/01/2019 SHANI HUTCHINSON MD Ot L97.312 NON-PRS CHRONIC ULCER OF RIGHT ANKLE W F 06/01/2019 SHANI HUTCHINSON MD Ot L97.522 NON-PRS CHRONIC ULCER OTH PRT LEFT FOOT 06/01/2019 SHANI HUTCHINSON MD, Ot 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 06/01/2019 SHANI HUTCHINSON MD, Ot B96 .5 PSEUDOMONAS (MALLEI) CAUSING DISEASES CL 06/01/2019 SHANI HUTCHINSON MD Ot D64 .9 ANEMIA, UNSPECIFIED 06/01/2019 SHANI HUTCHINSON MD Ot D68.51 ACTIVATED PROTEIN C RESISTANCE 06/01/2019 SHANI HUTCHISNON MD Ot I82.503 CHRONIC EMBLSM AND THOMBOS UNSP DEEP VEI 06/01/2019 SHANI HUTCHINSON MD Ot I87.313 CHRONIC VENOUS HYPERTENSION W ULCER OF B 06/01/2019 SHANI HUTCHINSON MD Ot I89 .0 LYMPHEDEMA, NOT ELSEWHERE CLASSIFIED 06/01/2019 SHANI HUTCHINSON MD Ot L97.212 NON-PRESSURE CHRONIC ULCER OF RIGHT CALF 06/01/2019 SHANI HUTCHINSON MD Ot L97.222 NON-PRESSURE CHRONIC ULCER OF LEFT CALF 06/01/2019 SHANI HUTCHINSON MD Ot L97.312 NON-PRS CHRONIC ULCER OF RIGHT ANKLE W F 06/01/2019 SHANI HUTCHINSON MD Ot L97.522 NON-PRS CHRONIC ULCER OTH PRT LEFT FOOT 06/08/2019 SHANI HUTCHINSON MD Ot 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 06/08/2019 SHANI HUTCHINSON MD Ot B96 .5 PSEUDOMONAS (MALLEI) CAUSING DISEASES CL 06/08/2019 SHANI HUTCHINSON MD Ot D64 .9 ANEMIA, UNSPECIFIED 06/08/2019 SHANI HUTCHINSON MD, Ot D68.51 ACTIVATED PROTEIN C RESISTANCE 06/08/2019 SHANI HUTCHINSON MD Ot I82.503 CHRONIC EMBLSM AND THOMBOS UNSP DEEP VEI 06/08/2019 SHANI HUTCHINSON MD, Ot I87.313 CHRONIC VENOUS HYPERTENSION W ULCER OF B 06/08/2019 SHANI HUTCHINSON MD, Ot I89 .0 LYMPHEDEMA, NOT ELSEWHERE CLASSIFIED 06/08/2019 SHANI HUTCHINSON MD Ot L97.212 NON-PRESSURE CHRONIC ULCER OF RIGHT CALF 06/08/2019 SHANI HUTCHINSON MD Ot L97.222 NON-PRESSURE CHRONIC ULCER OF LEFT CALF 06/08/2019 SHANI HUTCHINSON MD Ot L97.312 NON-PRS CHRONIC ULCER OF RIGHT ANKLE W F 06/08/2019 SHANI HUTCHINSON MD Ot L97.522 NON-PRS CHRONIC ULCER OTH PRT LEFT FOOT 06/14/2019 SHANI HUTCHINSON MD, Ot 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 06/14/2019 SHANI HUTCHINSON MD Ot B96 .5 PSEUDOMONAS (MALLEI) CAUSING DISEASES CL 06/14/2019 SHANI HUTCHINSON MD Ot D64 .9 ANEMIA, UNSPECIFIED 06/14/2019 SHANI HUTCHINSON MD, Ot D68.51 ACTIVATED PROTEIN C RESISTANCE 06/14/2019 SHANI HUTCHINSON MD Ot I82.503 CHRONIC EMBLSM AND THOMBOS UNSP DEEP VEI 06/14/2019 SHANI HUTCHINSON MD Ot I87.313 CHRONIC VENOUS HYPERTENSION W ULCER OF B 06/14/2019 SHANI HUTCHINSON MD Ot I89 .0 LYMPHEDEMA, NOT ELSEWHERE CLASSIFIED 06/14/2019 SHANI HUTCHINSON MD Ot L97.212 NON-PRESSURE CHRONIC ULCER OF RIGHT CALF 06/14/2019 SHANI HUTCHINSON MD Ot L97.222 NON-PRESSURE CHRONIC ULCER OF LEFT CALF 06/14/2019 SHANI HUTCHINSON MD Ot L97.312 NON-PRS CHRONIC ULCER OF RIGHT ANKLE W F 06/14/2019 SHANI HUTCHINSON MD Ot L97.522 NON-PRS CHRONIC ULCER OTH PRT LEFT FOOT 06/16/2019 SHANI HUTCHINSON MD Ot D64 .9 ANEMIA, UNSPECIFIED 06/16/2019 SHANI HUTCHINSON MD Ot I73 .9 PERIPHERAL VASCULAR DISEASE, UNSPECIFIED 06/16/2019 SHANI HUTCHINSON MD, Ot I82.503 CHRONIC EMBLSM AND THOMBOS UNSP DEEP VEI 06/16/2019 SHANI HUTCHINSON MD Ot L97.229 NON-PRESSURE CHRONIC ULCER OF LEFT CALF 06/21/2019 SHANI HUTCHINSON MD Ot 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 06/21/2019 SHANI HUTCHINSON MD, Ot B96 .5 PSEUDOMONAS (MALLEI) CAUSING DISEASES CL 06/21/2019 SHANI HUTCHINSON MD, Ot D64 .9 ANEMIA, UNSPECIFIED 06/21/2019 SHANI HUTCHINSON MD, Ot D68.51 ACTIVATED PROTEIN C RESISTANCE 06/21/2019 SHANI HUTCHINSON MD Ot I82.503 CHRONIC EMBLSM AND THOMBOS UNSP DEEP VEI 06/21/2019 SHANI HUTCHINSON MD Ot I87.313 CHRONIC VENOUS HYPERTENSION W ULCER OF B 06/21/2019 SHANI HUTCHINSON MD Ot I89 .0 LYMPHEDEMA, NOT ELSEWHERE CLASSIFIED 06/21/2019 SHANI HUTCHINSON MD Ot L97.212 NON-PRESSURE CHRONIC ULCER OF RIGHT CALF 06/21/2019 SHANI HUTCHINSON MD Ot L97.222 NON-PRESSURE CHRONIC ULCER OF LEFT CALF 06/21/2019 SHANI HUTCHINSON MD Ot L97.312 NON-PRS CHRONIC ULCER OF RIGHT ANKLE W F 06/21/2019 SHANI HUTCHINSON MD Ot L97.522 NON-PRS CHRONIC ULCER OTH PRT LEFT FOOT 06/23/2019 SHANI HUTCHINSON MD, Ot D68.51 ACTIVATED PROTEIN C RESISTANCE 06/23/2019 SHANI HUTCHINSON MD Ot I82.503 CHRONIC EMBLSM AND THOMBOS UNSP DEEP VEI 06/23/2019 SHANI HUTCHINSON MD Ot I87.333 CHRONIC VENOUS HTN W ULCER AND INFLAM OF 06/23/2019 SHANI HUTCHINSON MD Ot I89 .0 LYMPHEDEMA, NOT ELSEWHERE CLASSIFIED 06/23/2019 SHANI HUTCHINSON MD Ot I96 GANGRENE, NOT ELSEWHERE CLASSIFIED 06/23/2019 SHANI HUTCHINSON MD Ot L97.212 NON-PRESSURE CHRONIC ULCER OF RIGHT CALF 06/23/2019 SHANI HUTCHINSON MD Ot L97.222 NON-PRESSURE CHRONIC ULCER OF LEFT CALF 06/23/2019 SHANI HUTCHINSON MD Ot L97.312 NON-PRS CHRONIC ULCER OF RIGHT ANKLE W F 06/23/2019 SHANI HUTCHINSON MD Ot L97.522 NON-PRS CHRONIC ULCER OTH PRT LEFT FOOT 06/23/2019 SHANI HUTCHINSON MD Ot L97.222 NON-PRESSURE CHRONIC ULCER OF LEFT CALF 06/23/2019 SHANI HUTCHINSON MD Ot D68.51 ACTIVATED PROTEIN C RESISTANCE 06/23/2019 SHANI HUTCHINSON MD Ot E11.52 TYPE 2 DIABETES W DIABETIC PERIPHERAL AN 06/23/2019 SHANI HUTCHINSON MD Ot I82.503 CHRONIC EMBLSM AND THOMBOS UNSP DEEP VEI 06/23/2019 SHANI HUTCHINSON MD Ot I87.333 CHRONIC VENOUS HTN W ULCER AND INFLAM OF 06/23/2019 SHANI HUTCHINSON MD Ot I89 .0 LYMPHEDEMA, NOT ELSEWHERE CLASSIFIED 06/23/2019 SHANI HUTCHINSON MD Ot L97.212 NON-PRESSURE CHRONIC ULCER OF RIGHT CALF 06/23/2019 SHANI HUTCHINSON MD Ot L97.222 NON-PRESSURE CHRONIC ULCER OF LEFT CALF 06/23/2019 SHANI HUTCHINSON MD Ot L97.312 NON-PRS CHRONIC ULCER OF RIGHT ANKLE W F 06/23/2019 SHANI HUTCHINSON MD Ot L97.522 NON-PRS CHRONIC ULCER OTH PRT LEFT FOOT 06/23/2019 SHANI HUTCHINSON MD, Ot D68.51 ACTIVATED PROTEIN C RESISTANCE 06/23/2019 SHANI HUTCHINSON MD Ot I82.503 CHRONIC EMBLSM AND THOMBOS UNSP DEEP VEI 06/23/2019 SHANI HUTCHINSON MD Ot I87.333 CHRONIC VENOUS HTN W ULCER AND INFLAM OF 06/23/2019 SHANI HUTCHINSON MD Ot I89 .0 LYMPHEDEMA, NOT ELSEWHERE CLASSIFIED 06/23/2019 SHANI HUTCHINSON MD Ot I96 GANGRENE, NOT ELSEWHERE CLASSIFIED 06/23/2019 SHANI HUTCHINSON MD Ot L97.212 NON-PRESSURE CHRONIC ULCER OF RIGHT CALF 06/23/2019 SHANI HUTCHINSON MD Ot L97.222 NON-PRESSURE CHRONIC ULCER OF LEFT CALF 06/23/2019 SHANI HUTCHINSON MD Ot L97.312 NON-PRS CHRONIC ULCER OF RIGHT ANKLE W F 06/23/2019 SHANI HUTCHINSON MD Ot L97.522 NON-PRS CHRONIC ULCER OTH PRT LEFT FOOT 06/23/2019 SHANI HUTCHINSON MD Ot D68.51 ACTIVATED PROTEIN C RESISTANCE 06/23/2019 SHANI HUTCHINSON MD Ot I82.503 CHRONIC EMBLSM AND THOMBOS UNSP DEEP VEI 06/23/2019 SHANI HUTCHINSON MD Ot I87.333 CHRONIC VENOUS HTN W ULCER AND INFLAM OF 06/23/2019 SHANI HUTCHINSON MD Ot I89 .0 LYMPHEDEMA, NOT ELSEWHERE CLASSIFIED 06/23/2019 SHANI HUTCHINSON MD Ot I96 GANGRENE, NOT ELSEWHERE CLASSIFIED 06/23/2019 SHANI HUTCHINSON MD Ot L97.212 NON-PRESSURE CHRONIC ULCER OF RIGHT CALF 06/23/2019 SHANI HUTCHINSON MD Ot L97.222 NON-PRESSURE CHRONIC ULCER OF LEFT CALF 06/23/2019 SHANI HUTCHINSON MD Ot L97.312 NON-PRS CHRONIC ULCER OF RIGHT ANKLE W F 06/23/2019 SHANI HUTCHINSON MD Ot L97.522 NON-PRS CHRONIC ULCER OTH PRT LEFT FOOT 06/23/2019 MARIALUISA ALFARO MD Ot D68.51 ACTIVATED PROTEIN C RESISTANCE 06/23/2019 MARIALUISA ALFARO MD Ot I82.503 CHRONIC EMBLSM AND THOMBOS UNSP DEEP VEI 06/23/2019 MARIALUISA ALFARO MD Ot I87.333 CHRONIC VENOUS HTN W ULCER AND INFLAM OF 06/23/2019 MARIALUISA ALFARO MD Ot I89.0 LYMPHEDEMA, NOT ELSEWHERE CLASSIFIED 06/23/2019 MARIALUISA ALFARO MD Ot I 96 GANGRENE, NOT ELSEWHERE CLASSIFIED 06/23/2019 MARIALUISA ALFARO MD Ot L97.212 NON-PRESSURE CHRONIC ULCER OF RIGHT CALF 06/23/2019 MARIALUISA ALFARO MD Ot L97.222 NON-PRESSURE CHRONIC ULCER OF LEFT CALF 06/23/2019 MARIALUISA ALFARO MD Ot L97.312 NON-PRS CHRONIC ULCER OF RIGHT ANKLE W F 06/23/2019 MARIALUISA ALFARO MD Ot L97.522 NON-PRS CHRONIC ULCER OTH PRT LEFT FOOT 06/23/2019 ZAIRE WESTFALL MD Ot D68.51 ACTIVATED PROTEIN C RESISTANCE 06/23/2019 ZAIRE WESTFALL MD Ot I82.503 CHRONIC EMBLSM AND THOMBOS UNSP DEEP VEI 06/23/2019 ZAIRE WESTFALL MD Ot I87.333 CHRONIC VENOUS HTN W ULCER AND INFLAM OF 06/23/2019 ZAIRE WESTFALL MD Ot I89.0 LYMPHEDEMA, NOT ELSEWHERE CLASSIFIED 06/23/2019 ZAIRE WESTFALL MD Ot L97.212 NON- PRESSURE CHRONIC ULCER OF RIGHT CALF 06/23/2019 ZAIRE WESTFALL MD Ot L97.222 NON- PRESSURE CHRONIC ULCER OF LEFT CALF 06/23/2019 ZAIRE WESTFALL MD Ot L97.312 NON- PRS CHRONIC ULCER OF RIGHT ANKLE W F 06/23/2019 ZAIRE WESTFALL MD, Ot L97.522 NON- PRS CHRONIC ULCER OTH PRT LEFT FOOT 06/23/2019 ZAIRE WESTFALL MD Ot 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 06/23/2019 ZAIRE WESTFALL MD Ot B96.5 PSEUDOMONAS (MALLEI) CAUSING DISEASES CL 06/23/2019 ZAIRE WESTFALL MD Ot D68.51 ACTIVATED PROTEIN C RESISTANCE 06/23/2019 ZAIRE WESTFALL MD Ot I82.503 CHRONIC EMBLSM AND THOMBOS UNSP DEEP VEI 06/23/2019 ZAIRE WESTFALL MD Ot I87.333 CHRONIC VENOUS HTN W ULCER AND INFLAM OF 06/23/2019 ZAIRE WESTFALL MD Ot I89.0 LYMPHEDEMA, NOT ELSEWHERE CLASSIFIED 06/23/2019 ZAIRE WESTFALL MD Ot L84 CORNS AND CALLOSITIES 06/23/2019 ZAIRE WESTFALL MD Ot L97.212 NON- PRESSURE CHRONIC ULCER OF RIGHT CALF 06/23/2019 ZAIRE WESTFALL MD Ot L97.222 NON- PRESSURE CHRONIC ULCER OF LEFT CALF 06/23/2019 ZAIRE WESTFALL MD Ot L97.312 NON- PRS CHRONIC ULCER OF RIGHT ANKLE W F 06/23/2019 MARIALUISA ALFARO MD Ot 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 06/23/2019 MARIALUISA ALFARO MD Ot B96.5 PSEUDOMONAS (MALLEI) CAUSING DISEASES CL 06/23/2019 MARIALUISA ALFARO MD Ot D68.51 ACTIVATED PROTEIN C RESISTANCE 06/23/2019 MARIALUISA ALFARO MD Ot I82.503 CHRONIC EMBLSM AND THOMBOS UNSP DEEP VEI 06/23/2019 MARIALUISA ALFARO MD Ot I87.333 CHRONIC VENOUS HTN W ULCER AND INFLAM OF 06/23/2019 MARIALUISA ALFARO MD Ot I89.0 LYMPHEDEMA, NOT ELSEWHERE CLASSIFIED 06/23/2019 MARIALUISA ALFARO MD Ot L 84 CORNS AND CALLOSITIES 06/23/2019 MARIALUISA ALFARO MD Ot L97.212 NON-PRESSURE CHRONIC ULCER OF RIGHT CALF 06/23/2019 MARIALUISA ALFARO MD Ot L97.222 NON-PRESSURE CHRONIC ULCER OF LEFT CALF 06/23/2019 MARIALUISA ALFARO MD Ot L97.312 NON-PRS CHRONIC ULCER OF RIGHT ANKLE W F 06/23/2019 MARIALUISA ALFARO MD Ot L97.522 NON-PRS CHRONIC ULCER OTH PRT LEFT FOOT 06/23/2019 SHANI HUTCHINSON MD, Ot 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 06/23/2019 SHANI HUTCHINSON MD Ot B96 .5 PSEUDOMONAS (MALLEI) CAUSING DISEASES CL 06/23/2019 SHANI HUTCHINSON MD Ot D64 .9 ANEMIA, UNSPECIFIED 06/23/2019 SHANI HUTCHINSON MD Ot D68.51 ACTIVATED PROTEIN C RESISTANCE 06/23/2019 SHANI HUTCHINSON MD Ot I82.503 [facility] 06/23/2019 SHANI HUTCHINSON MD Ot I87.333 CHRONIC VENOUS HTN W ULCER AND INFLAM OF 06/23/2019 SHANI HUTCHINSON MD Ot I89 .0 LYMPHEDEMA, NOT ELSEWHERE CLASSIFIED 06/23/2019 SHANI HUTCHINSON MD Ot L97.212 NON-PRESSURE CHRONIC ULCER OF RIGHT CALF 06/23/2019 SHANI HUTCHINSON MD Ot L97.222 NON-PRESSURE CHRONIC ULCER OF LEFT CALF 06/23/2019 SHANI HUTCHINSON MD Ot L97.312 NON-PRS CHRONIC ULCER OF RIGHT ANKLE W F 06/23/2019 SHANI HUTCHINSON MD Ot L97.522 NON-PRS CHRONIC ULCER OTH PRT LEFT FOOT 06/23/2019 SHANI HUTCHINSON MD Ot 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 06/23/2019 SHANI HUTCHINSON MD Ot B96 .5 PSEUDOMONAS (MALLEI) CAUSING DISEASES CL 06/23/2019 SHANI HUTCHINSON MD Ot D64 .9 ANEMIA, UNSPECIFIED 06/23/2019 SHANI HUTCHINSON MD, Ot D68.51 ACTIVATED PROTEIN C RESISTANCE 06/23/2019 SHANI HUTCHINSON MD, Ot I82.503 CHRONIC EMBLSM AND THOMBOS UNSP DEEP VEI 06/23/2019 SHANI HUTCHINSON MD Ot I87.313 CHRONIC VENOUS HYPERTENSION W ULCER OF B 06/23/2019 SHANI HUTCHINSON MD Ot I89 .0 LYMPHEDEMA, NOT ELSEWHERE CLASSIFIED 06/23/2019 SHANI HUTCHINSON MD, Ot L97.212 NON-PRESSURE CHRONIC ULCER OF RIGHT CALF 06/23/2019 SHANI HUTCHINSON MD, Ot L97.222 NON-PRESSURE CHRONIC ULCER OF LEFT CALF 06/23/2019 SHANI HUTCHINSON MD, Ot L97.312 NON-PRS CHRONIC ULCER OF RIGHT ANKLE W F 06/23/2019 SHANI HUTCHINSON MD, Ot L97.522 NON-PRS CHRONIC ULCER OTH PRT LEFT FOOT 06/26/2019 SHANI HUTCHINSON MD, Ot 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 06/26/2019 SHANI HUTCHINSON MD, Ot B96 .5 PSEUDOMONAS (MALLEI) CAUSING DISEASES CL 06/26/2019 SHANI HUTCHINSON MD Ot D64 .9 ANEMIA, UNSPECIFIED 06/26/2019 SHANI HUTCHINSON MD, Ot D68.51 ACTIVATED PROTEIN C RESISTANCE 06/26/2019 SHANI HUTCHINSON MD, Ot I82.503 CHRONIC EMBLSM AND THOMBOS UNSP DEEP VEI 06/26/2019 SHANI HUTCHINSON MD Ot I87.313 CHRONIC VENOUS HYPERTENSION W ULCER OF B 06/26/2019 SHANI HUTCHINSON MD, Ot I89 .0 LYMPHEDEMA, NOT ELSEWHERE CLASSIFIED 06/26/2019 SHANI HUTCHINSON MD Ot L97.212 NON-PRESSURE CHRONIC ULCER OF RIGHT CALF 06/26/2019 SHANI HUTCHINSON MD Ot L97.222 NON-PRESSURE CHRONIC ULCER OF LEFT CALF 06/26/2019 SHANI HUTCHINSON MD, Ot L97.312 NON-PRS CHRONIC ULCER OF RIGHT ANKLE W F 06/26/2019 SHANI HUTCHINSON MD, Ot L97.522 NON-PRS CHRONIC ULCER OTH PRT LEFT FOOT 06/28/2019 SHANI HUTCHINSON MD, Ot 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 06/28/2019 SHANI HUTCHINSON MD, Ot B96 .5 PSEUDOMONAS (MALLEI) CAUSING DISEASES CL 06/28/2019 SHANI HUTCHINSON MD Ot D64 .9 ANEMIA, UNSPECIFIED 06/28/2019 SHANI HUTCHINSON MD, Ot D68.51 ACTIVATED PROTEIN C RESISTANCE 06/28/2019 SHANI HUTCHINSON MD, Ot I82.503 CHRONIC EMBLSM AND THOMBOS UNSP DEEP VEI 06/28/2019 SHANI HUTCHINSON MD Ot I87.313 CHRONIC VENOUS HYPERTENSION W ULCER OF B 06/28/2019 SHANI HUTCHINSON MD Ot I89 .0 LYMPHEDEMA, NOT ELSEWHERE CLASSIFIED 06/28/2019 SHANI HUTCHINSON MD, Ot L97.212 NON-PRESSURE CHRONIC ULCER OF RIGHT CALF 06/28/2019 SHANI HUTCHINSON MD Ot L97.222 NON-PRESSURE CHRONIC ULCER OF LEFT CALF 06/28/2019 SHANI HUTCHNISON MD, Ot L97.312 NON-PRS CHRONIC ULCER OF RIGHT ANKLE W F 06/28/2019 SHANI HUTCHINSON MD, Ot L97.522 NON-PRS CHRONIC ULCER OTH PRT LEFT FOOT 06/30/2019 SHANI HUTCHINSON MD, Ot 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 06/30/2019 SHANI HUTCHINSON MD, Ot B96 .5 PSEUDOMONAS (MALLEI) CAUSING DISEASES CL 06/30/2019 SHANI HUTCHINSON MD, Ot D64 .9 ANEMIA, UNSPECIFIED 06/30/2019 SHANI HUTCHINSON MD, Ot D68.51 ACTIVATED PROTEIN C RESISTANCE 06/30/2019 SHANI HUTCHINSON MD Ot I82.503 CHRONIC EMBLSM AND THOMBOS UNSP DEEP VEI 06/30/2019 SHANI HUTCHINSON MD Ot I87.313 CHRONIC VENOUS HYPERTENSION W ULCER OF B 06/30/2019 SHANI HUTCHINSON MD, Ot I89 .0 LYMPHEDEMA, NOT ELSEWHERE CLASSIFIED 06/30/2019 SHANI HUTCHINSON MD Ot L97.212 NON-PRESSURE CHRONIC ULCER OF RIGHT CALF 06/30/2019 SHANI HUTCHINSON MD Ot L97.222 NON-PRESSURE CHRONIC ULCER OF LEFT CALF 06/30/2019 SHANI HUTCHINSON MD Ot L97.312 NON-PRS CHRONIC ULCER OF RIGHT ANKLE W F 06/30/2019 SHANI HUTCHINSON MD, Ot L97.522 NON-PRS CHRONIC ULCER OTH PRT LEFT FOOT 07/02/2019 MARIALUISA ALFARO MD Ot 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 07/02/2019 MARIALUISA ALFARO MD Ot B96.5 PSEUDOMONAS (MALLEI) CAUSING DISEASES CL 07/02/2019 MARIALUISA ALFARO MD Ot D68.51 ACTIVATED PROTEIN C RESISTANCE 07/02/2019 MARIALUISA ALFARO MD Ot I82.503 CHRONIC EMBLSM AND THOMBOS UNSP DEEP VEI 07/02/2019 MARIALUISA ALFARO MD Ot I87.333 CHRONIC VENOUS HTN W ULCER AND INFLAM OF 07/02/2019 MARIALUISA ALFARO MD Ot I89.0 LYMPHEDEMA, NOT ELSEWHERE CLASSIFIED 07/02/2019 MARIALUISA ALFARO MD, Ot L 84 CORNS AND CALLOSITIES 07/02/2019 MARIALUISA ALFARO MD Ot L97.212 NON-PRESSURE CHRONIC ULCER OF RIGHT CALF 07/02/2019 MARIALUISA ALFARO MD Ot L97.222 NON-PRESSURE CHRONIC ULCER OF LEFT CALF 07/02/2019 MARIALUISA ALFARO MD Ot L97.312 NON-PRS CHRONIC ULCER OF RIGHT ANKLE W F 07/02/2019 MARIALUISA ALFARO MD Ot L97.522 NON-PRS CHRONIC ULCER OTH PRT LEFT FOOT 07/02/2019 ZAIRE WESTFALL MD Ot 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 07/02/2019 ZAIRE WESTFALL MD Ot B96.5 PSEUDOMONAS (MALLEI) CAUSING DISEASES CL 07/02/2019 ZAIRE WESTFALL MD, Ot D68.51 ACTIVATED PROTEIN C RESISTANCE 07/02/2019 ZAIRE WESTFALL MD, Ot I82.503 CHRONIC EMBLSM AND THOMBOS UNSP DEEP VEI 07/02/2019 ZAIRE WESTFALL MD Ot I87.333 CHRONIC VENOUS HTN W ULCER AND INFLAM OF 07/02/2019 ZAIRE WESTFALL MD Ot I89.0 LYMPHEDEMA, NOT ELSEWHERE CLASSIFIED 07/02/2019 ZAIRE WESTFALL MD Ot I96 GANGRENE, NOT ELSEWHERE CLASSIFIED 07/02/2019 ZAIRE WESTFALL MD Ot L84 CORNS AND CALLOSITIES 07/02/2019 ZAIRE WESTFALL MD Ot L97.212 NON- PRESSURE CHRONIC ULCER OF RIGHT CALF 07/02/2019 ZAIRE WESTFALL MD Ot L97.222 NON- PRESSURE CHRONIC ULCER OF LEFT CALF 07/02/2019 ZAIRE WESTFALL MD Ot L97.322 NON- PRESSURE CHRONIC ULCER OF LEFT ANKLE 07/02/2019 ZAIRE WESTFALL MD Ot L97.522 NON- PRS CHRONIC ULCER OTH PRT LEFT FOOT 07/02/2019 ZAIRE WESTFALL MD Ot 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 07/02/2019 ZAIRE WESTFALL MD, Ot B96.5 PSEUDOMONAS (MALLEI) CAUSING DISEASES CL 07/02/2019 ZAIRE WESTFALL MD, Ot D68.51 ACTIVATED PROTEIN C RESISTANCE 07/02/2019 ZAIRE WESTFALL MD, Ot I82.503 CHRONIC EMBLSM AND THOMBOS UNSP DEEP VEI 07/02/2019 ZAIRE WESTFALL MD Ot I87.333 CHRONIC VENOUS HTN W ULCER AND INFLAM OF 07/02/2019 ZAIRE WESTFALL MD, Ot I89.0 LYMPHEDEMA, NOT ELSEWHERE CLASSIFIED 07/02/2019 ZAIRE WESTFALL MD Ot L84 CORNS AND CALLOSITIES 07/02/2019 ZAIRE WESTFALL MD, Ot L97.212 NON- PRESSURE CHRONIC ULCER OF RIGHT CALF 07/02/2019 ZAIRE WESTFALL MD, Ot L97.222 NON- PRESSURE CHRONIC ULCER OF LEFT CALF 07/02/2019 ZAIRE WESTFALL MD, Ot L97.312 NON- PRS CHRONIC ULCER OF RIGHT ANKLE W F 07/02/2019 ZAIRE WESTFALL MD, Ot L97.522 NON- PRS CHRONIC ULCER OTH PRT LEFT FOOT 07/03/2019 DEANA ALARCON MD Ot D50. 0 IRON DEFICIENCY ANEMIA SECONDARY TO BLOO 07/03/2019 DEANA ALARCON MD, Ot D68. 51 ACTIVATED PROTEIN C RESISTANCE 07/03/2019 DEANA ALARCON MD Ot E66. 01 MORBID (SEVERE) OBESITY DUE TO EXCESS CA 07/03/2019 DEANA ALARCON MD Ot I82.503 CHRONIC EMBLSM AND THOMBOS UNSP DEEP VEI 07/03/2019 DEANA ALARCON MD Ot K29. 70 GASTRITIS, UNSPECIFIED, WITHOUT BLEEDING 07/03/2019 DEANA ALARCON MD, Ot Z68. 39 BODY MASS INDEX (BMI) 39.0-39.9, ADULT 07/03/2019 DEANA ALARCON MD, Ot Z79. 01 SHELTER (CURRENT) USE OF ANTICOAGULANT 07/03/2019 DEANA ALARCON MD, Ot Z79. 82 PHYSICIAN CHIEF OF PATHOLOGY (CURRENT) USE OF ASPIRIN 07/03/2019 DEANA ALARCON MD, Ot Z79.899 OTHER SHELTER (CURRENT) DRUG THERAPY 07/05/2019 DEANA ALARCON MD, Ot D50. 0 IRON DEFICIENCY ANEMIA SECONDARY TO BLOO 07/05/2019 DEANA ALARCON MD, Ot D68. 51 ACTIVATED PROTEIN C RESISTANCE 07/05/2019 DEANA ALARCON MD, Ot E66. 01 MORBID (SEVERE) OBESITY DUE TO EXCESS CA 07/05/2019 DEANA ALARCON MD, Ot I82.503 CHRONIC EMBLSM AND THOMBOS UNSP DEEP VEI 07/05/2019 DEANA ALARCON MD, Ot K29. 70 GASTRITIS, UNSPECIFIED, WITHOUT BLEEDING 07/05/2019 DEANA ALARCON MD, Ot Z68. 39 BODY MASS INDEX (BMI) 39.0-39.9, ADULT 07/05/2019 DEANA ALARCON MD, Ot Z79. 01 SHELTER (CURRENT) USE OF ANTICOAGULANT 07/05/2019 DEANA ALARCON MD, Ot Z79. 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 07/05/2019 SHANI HUTCHINSON MD, Ot B96 .5 PSEUDOMONAS (MALLEI) CAUSING DISEASES CL 07/05/2019 SHANI HUTCHINSON MD, Ot D64 .9 ANEMIA, UNSPECIFIED 07/05/2019 SHANI HUTCHINSON MD, Ot D68.51 ACTIVATED PROTEIN C RESISTANCE 07/05/2019 SHANI HUTCHINSON MD Ot I82.503 CHRONIC EMBLSM AND THOMBOS UNSP DEEP VEI 07/05/2019 SHANI HUTCHINSON MD, Ot I87.313 CHRONIC VENOUS HYPERTENSION W ULCER OF B 07/05/2019 SHANI HUTCHINSON MD, Ot I89 .0 LYMPHEDEMA, NOT ELSEWHERE CLASSIFIED 07/05/2019 SHANI HUTCHINSON MD, Ot L97.212 NON-PRESSURE CHRONIC ULCER OF RIGHT CALF 07/05/2019 SHANI HUTCHINSON MD, Ot L97.222 NON-PRESSURE CHRONIC ULCER OF LEFT CALF 07/05/2019 SHANI HUTCHINSON MD, Ot L97.312 NON-PRS CHRONIC ULCER OF RIGHT ANKLE W F 07/05/2019 SHANI HUTCHINSON MD, Ot L97.522 NON-PRS CHRONIC ULCER OTH PRT LEFT FOOT 07/06/2019 SHANI HUTCHINSON MD, Ot 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 07/06/2019 SHANI HUTCHINSON MD, Ot B96 .5 PSEUDOMONAS (MALLEI) CAUSING DISEASES CL 07/06/2019 SHANI HUTCHINSON MD, Ot D64 .9 ANEMIA, UNSPECIFIED 07/06/2019 SHANI HUTCHINSON MD, Ot D68.51 ACTIVATED PROTEIN C RESISTANCE 07/06/2019 SHANI HUTCHINSON MD, Ot I82.503 CHRONIC EMBLSM AND THOMBOS UNSP DEEP VEI 07/06/2019 SHANI HUTCHINSON MD, Ot I87.313 CHRONIC VENOUS HYPERTENSION W ULCER OF B 07/06/2019 SHANI HUTCHINSON MD, Ot I89 .0 LYMPHEDEMA, NOT ELSEWHERE CLASSIFIED 07/06/2019 SHANI HUTCHINSON MD, Ot L97.212 NON-PRESSURE CHRONIC ULCER OF RIGHT CALF 07/06/2019 SHANI HUTCHINSON MD, Ot L97.222 NON-PRESSURE CHRONIC ULCER OF LEFT CALF 07/06/2019 SHANI HUTCHINSON MD, Ot L97.312 NON-PRS CHRONIC ULCER OF RIGHT ANKLE W F 07/06/2019 SHANI HUTCHINSON MD, Ot L97.522 NON-PRS CHRONIC ULCER OTH PRT LEFT FOOT 07/09/2019 DEANA ALARCON MD, Ot D50. 0 IRON DEFICIENCY ANEMIA SECONDARY TO BLOO 07/09/2019 DEANA ALARCON MD, Ot D68. 51 ACTIVATED PROTEIN C RESISTANCE 07/09/2019 DEANA ALARCON MD, Ot E66. 01 MORBID (SEVERE) OBESITY DUE TO EXCESS CA 07/09/2019 DEANA ALARCON MD, Ot I82.503 CHRONIC EMBLSM AND THOMBOS UNSP DEEP VEI 07/09/2019 DEANA ALARCON MD, Ot K29. 70 GASTRITIS, UNSPECIFIED, WITHOUT BLEEDING 07/09/2019 DEANA ALARCON MD, Ot Z68. 39 BODY MASS INDEX (BMI) 39.0-39.9, ADULT 07/09/2019 DEANA ALARCON MD, Ot Z79. 01 PHYSICIAN CHIEF OF PATHOLOGY (CURRENT) USE OF ANTICOAGULANT 07/09/2019 DEANA ALARCON MD, Ot Z79. 82 SHELTER (CURRENT) USE OF ASPIRIN 07/09/2019 DEANA ALARCON MD, Ot Z79.899 OTHER SHELTER (CURRENT) DRUG THERAPY 07/12/2019 XUN MD, ROLLE-KEVIN Ot D50. 0 IRON DEFICIENCY ANEMIA SECONDARY TO BLOO 07/12/2019 DEANA ALARCON MD, Ot D68. 51 ACTIVATED PROTEIN C RESISTANCE 07/12/2019 DEANA ALARCON MD Ot E66. 01 MORBID (SEVERE) OBESITY DUE TO EXCESS CA 07/12/2019 DEANA ALARCON MD, Ot I82.503 CHRONIC EMBLSM AND THOMBOS UNSP DEEP VEI 07/12/2019 DEANA ALARCON MD Ot K29. 70 GASTRITIS, UNSPECIFIED, WITHOUT BLEEDING 07/12/2019 DEANA ALARCON MD, Ot Z68. 39 BODY MASS INDEX (BMI) 39.0-39.9, ADULT 07/12/2019 DEANA ALARCON MD, Ot Z79. 01 PHYSICIAN CHIEF OF PATHOLOGY (CURRENT) USE OF ANTICOAGULANT 07/12/2019 DEANA ALARCON MD, Ot Z79. 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 07/12/2019 SHANI HUTCHINSON MD, Ot B96 .5 PSEUDOMONAS (MALLEI) CAUSING DISEASES CL 07/12/2019 SHANI HUTCHINSON MD, Ot D64 .9 ANEMIA, UNSPECIFIED 07/12/2019 SHANI HUTCHINSON MD, Ot D68.51 ACTIVATED PROTEIN C RESISTANCE 07/12/2019 SHANI HUTCHINSON MD Ot I82.503 CHRONIC EMBLSM AND THOMBOS UNSP DEEP VEI 07/12/2019 SHANI HUTCHINSON MD Ot I87.313 CHRONIC VENOUS HYPERTENSION W ULCER OF B 07/12/2019 SHANI HUTCHINSON MD, Ot I89 .0 LYMPHEDEMA, NOT ELSEWHERE CLASSIFIED 07/12/2019 SHANI HUTCHINSON MD, Ot L97.212 NON-PRESSURE CHRONIC ULCER OF RIGHT CALF 07/12/2019 SHANI HUTCHINSON MD, Ot L97.222 NON-PRESSURE CHRONIC ULCER OF LEFT CALF 07/12/2019 SHANI HUTCHINSON MD, Ot L97.312 NON-PRS CHRONIC ULCER OF RIGHT ANKLE W F 07/12/2019 SHANI HUTCHINSON MD, Ot L97.522 NON-PRS CHRONIC ULCER OTH PRT LEFT FOOT 07/12/2019 SHANI HUTCHINSON MD, Ot 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 07/12/2019 SHANI HUTCHINSON MD, Ot B96 .5 PSEUDOMONAS (MALLEI) CAUSING DISEASES CL 07/12/2019 SHANI HUTCHINSON MD, Ot D64 .9 ANEMIA, UNSPECIFIED 07/12/2019 SHANI HUTCHINSON MD, Ot D68.51 ACTIVATED PROTEIN C RESISTANCE 07/12/2019 SHANI HUTCHINSON MD Ot I82.503 CHRONIC EMBLSM AND THOMBOS UNSP DEEP VEI 07/12/2019 SHANI HUTCHINSON MD Ot I87.313 CHRONIC VENOUS HYPERTENSION W ULCER OF B 07/12/2019 SHANI HUTCHINSON MD, Ot I89 .0 LYMPHEDEMA, NOT ELSEWHERE CLASSIFIED 07/12/2019 SHANI HUTCHINSON MD, Ot L97.212 NON-PRESSURE CHRONIC ULCER OF RIGHT CALF 07/12/2019 SHANI HUTCHINSON MD Ot L97.222 NON-PRESSURE CHRONIC ULCER OF LEFT CALF 07/12/2019 SHANI HUTCHINSON MD, Ot L97.312 NON-PRS CHRONIC ULCER OF RIGHT ANKLE W F 07/12/2019 SHANI HUTCHINSON MD Ot L97.522 NON-PRS CHRONIC ULCER OTH PRT LEFT FOOT 07/21/2019 SHANI HUTCHINSON MD, Ot 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 07/21/2019 SHANI HUTCHINSON MD, Ot B96 .5 PSEUDOMONAS (MALLEI) CAUSING DISEASES CL 07/21/2019 SHANI HUTCHINSON MD, Ot D64 .9 ANEMIA, UNSPECIFIED 07/21/2019 SHANI HUTCHINSON MD, Ot D68.51 ACTIVATED PROTEIN C RESISTANCE 07/21/2019 SHANI HUTCHINSON MD Ot I82.503 CHRONIC EMBLSM AND THOMBOS UNSP DEEP VEI 07/21/2019 SHANI HUTCHINSON MD Ot I87.313 CHRONIC VENOUS HYPERTENSION W ULCER OF B 07/21/2019 SHANI HUTCHINSON MD Ot I89 .0 LYMPHEDEMA, NOT ELSEWHERE CLASSIFIED 07/21/2019 SHANI HUTCHINSON MD Ot L97.212 NON-PRESSURE CHRONIC ULCER OF RIGHT CALF 07/21/2019 SHANI HUTCHINSON MD Ot L97.222 NON-PRESSURE CHRONIC ULCER OF LEFT CALF 07/21/2019 SHANI HUTCHINSON MD Ot L97.312 NON-PRS CHRONIC ULCER OF RIGHT ANKLE W F 07/21/2019 SHANI HUTCHINSON MD Ot L97.522 NON-PRS CHRONIC ULCER OTH PRT LEFT FOOT 07/21/2019 DEANA ALARCON MD Ot D50. 0 IRON DEFICIENCY ANEMIA SECONDARY TO BLOO 07/21/2019 DEANA ALARCON MD, Ot D68. 51 ACTIVATED PROTEIN C RESISTANCE 07/21/2019 DEANA ALARCON MD, Ot E66. 01 MORBID (SEVERE) OBESITY DUE TO EXCESS CA 07/21/2019 DEANA ALARCON MD, Ot I82.503 CHRONIC EMBLSM AND THOMBOS UNSP DEEP VEI 07/21/2019 DEANA ALARCON MD, Ot K29. 70 GASTRITIS, UNSPECIFIED, WITHOUT BLEEDING 07/21/2019 DEANA ALARCON MD, Ot Z68. 39 BODY MASS INDEX (BMI) 39.0-39.9, ADULT 07/21/2019 DEANA ALARCON MD, Ot Z79. 01 SHELTER (CURRENT) USE OF ANTICOAGULANT 07/21/2019 DEANA ALARCON MD, Ot Z79. 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 07/26/2019 SHANI HUTCHINSON MD, Ot B96 .5 PSEUDOMONAS (MALLEI) CAUSING DISEASES CL 07/26/2019 SHANI HUTCHINSON MD, Ot D64 .9 ANEMIA, UNSPECIFIED 07/26/2019 SHANI HUTCHINSON MD, Ot D68.51 ACTIVATED PROTEIN C RESISTANCE 07/26/2019 SHANI HUTCHINSON MD Ot I82.503 CHRONIC EMBLSM AND THOMBOS UNSP DEEP VEI 07/26/2019 SHANI HUTCHINSON MD, Ot I87.313 CHRONIC VENOUS HYPERTENSION W ULCER OF B 07/26/2019 SHANI HUTCHINSON MD, Ot I89 .0 LYMPHEDEMA, NOT ELSEWHERE CLASSIFIED 07/26/2019 SHANI HUTCHINSON MD, Ot L97.212 NON-PRESSURE CHRONIC ULCER OF RIGHT CALF 07/26/2019 SHANI HUTCHINSON MD, Ot L97.222 NON-PRESSURE CHRONIC ULCER OF LEFT CALF 07/26/2019 SHANI HUTCHINSON MD, Ot L97.312 NON-PRS CHRONIC ULCER OF RIGHT ANKLE W F 07/26/2019 SHNAI HUTCHINSON MD, Ot L97.522 NON-PRS CHRONIC ULCER OTH PRT LEFT FOOT 07/26/2019 SHANI HUTCHINSON MD Ot Z79.01 SHELTER (CURRENT) USE OF ANTICOAGULANT 07/27/2019 Ot 285.9 ANEM IA NOS 07/27/2019 Ot V12.51 HX- VENOUS THROMBOSIS EMBOLISM Procedures There is no data. Results Test Result Range Bacteria identification in isolate by an aerobe culture - 12/21/17 15:35 Bacteria identification in isolate by anaerobe culture NOANA NRG Gram stain microscopy - 12/21/17 15:35 Gram stain microscopy No bacteria seen NRG Bacteria identification in wound by cult ure - 12/21/17 15:35 Bacteria identification in wound by culture SEE RE PORT NRG FREE TEXT EXTERNAL SUSCEPTIBILITY REPORTED 12-24,1 105 NRG QUANTITY OF GROWTH . NRG RML Sensitivity Panel - 12/21/17 15:35 Gentamicin susceptibility test by minimum inhibitory c oncentration <= NRG Levofloxacin susceptibility test by minimum inhibitory concentration <= NRG Tobramycin susceptibility test by minimum inhibitory c oncentration S NRG Piperacillin/tazobactam susceptibility t est by minimum inhibitory concentration = NRG Ciprofloxacin susceptibility test by minimum inhibitor y concentration <= NRG Meropenem susceptibility test by minimum inhibitory co ncentration 1 NRG Aztreonam susceptibility test by minimum inhibitory co ncentration 8 NRG Cefepime susceptibility test by minimum inhibitory con centration 2 NRG Imipenem susceptibility test by minimum inhibitory con centration 2 NRG Ceftazidime susceptibility test by minimum inhibitory concentration <= NRG Complete blood count (CBC) with automate d white blood cell (WBC) differential - 12/21/17 16:42 Blood leukocytes automated count (number/volume) 6.0 10*3/uL 4.3-11.0 Blood erythrocytes automated count (number/volume) 4.31 10*6/uL 4.35-5.85 Venous blood hemoglobin measurement (mass/volume) 9.8 g/dL 13.3-17.7 Blood hematocrit (volume fraction) 32 % 40-54 Automated erythrocyte mean corpuscular volume 74 [ foz_us] 80-99 Automated erythrocyte mean corpuscular h emoglobin (mass per erythrocyte) 23 pg 25-34 Automated erythrocyte mean corpuscular h emoglobin concentration measurement (mass/volume) 31 g/dL 32-36 Automated erythrocyte distribution width ratio 17. 6 % 10.0- 14.5 Automated blood platelet count (count/volume) 324 10*3/uL [...] 10*3 1.0-4.0 Blood monocytes automated count (number/volume) 0. 7 10*3 0.0-1.0 Automated eosinophil count 0.4 10*3/uL 0 .0-0.3 Automated blood basophil count (count/volume) 0.0 10*3/uL 0.0-0.1 Comprehensive metabolic panel - 12/21/17 16:42 Serum or plasma sodium measurement (moles/volume) 137 mmol/L 135-145 Serum or plasma potassium measurement (moles/volume) 4.1 mmol/L 3.6-5.0 Serum or plasma chloride measurement (moles/volume) 104 mmol/L 98-107 Carbon dioxide 24 mmol/L 21-32 Serum or plasma anion gap determination (moles/volume) 9 mmol/L 5-14 Serum or plasma urea nitrogen measurement (mass/volume ) 17 mg/dL 7-18 Serum or plasma creatinine measurement (mass/volume) 1.09 mg/dL 0.60-1.30 Serum or plasma urea nitrogen/creatinine mass ratio 16 NRG Serum or plasma creatinine measurement w ith calculation of estimated glomerular filtration rate > NRG Serum or plasma glucose measurement (mass/volume) 91 mg/dL 70-105 Serum or plasma calcium measurement (mass/volume) 8.7 mg/dL 8.5-10.1 Serum or plasma total bilirubin measurement (mass/volu me) 0.2 mg/dL 0.1-1.0 Serum or plasma alkaline phosphatase adam surement (enzymatic activity/volume) 128 U/L 40-136 Serum or plasma aspartate aminotransfera se measurement (enzymatic activity/volume) 22 U/L 5-34 Serum or plasma alanine aminotransferase measurement (enzymatic activity/volume) 19 U/L 0-55 Serum or plasma protein measurement (mass/volume) 7.2 g/dL 6.4-8.2 Serum or plasma albumin measurement (mass/volume) 3.2 g/dL 3.2-4.5 CALCIUM CORRECTED 9.3 mg/dL 8.5-10.1 [id number] - 12/22/17 17:30 Inhibin B measurement Equivocal NRG Partial thromboplastin time (PTT) mixing study immediately after addition of normal plasma 32.9 % 20.6-39.2 Lupus anticoagulant-sensitive activated partial thromboplastin time (aPTT-LA) after 1:1 mixing with normal pooled plasma 38.3 % 2 4.4-41.7 Activated partial thromboplastin time (a PTT) mixing study 1:1 ratio after 2 hours incubation 37.7 % 20.6-39.2 [id number] - 12/22/17 17:30 Lupus anticoagulant-sensitive activated partial thromboplastin time (APTT) in platelet poor plasma 44.7 % 20.6-39.2 PT panel - platelet poor plasma by coagulation assay 15.1 % 10.5-15.7 INR in platelet poor plasma by coagulation assay 1 .2 0.7- 1.3 Factor VIII (VW factor) antigen assay 202 % 60-150 Homocysteine [mass/volume] in serum or plasma 7.1 % 0.0-15.4 Serum cardiolipin IgG antibody detection <20.0 <=20.0 Serum cardiolipin IgM ab <20.0 <=20. 0 Prothrombin gene [id number] mutation detection FOOTNO TE NRG Serum beta 2 glycoprotein 1 IgM antibody detection <20.0 <=20.0 Serum beta 2 glycoprotein 1 IgG antibody detection <20.0 <=20.0 ANTICOAG? Unknown NRG Activated protein C (APC) resistance assay 1.27 % >=1.87 Dilute Farzad's viper venom time - 12/07 08/24 17:30 Dilute Farzad's viper venom time (DRVVT) screening te st 1.06 % 0.00-1.20 Blood or tissue F5 gene p.R506Q detectio n by molecular genetics method - 12/22/17 17:30 Blood or tissue F5 gene p.R506Q detectio n by molecular genetics method FOOTNOTE NRG Coagulation factor 5 activated measureme nt (units/volume) in platelet poor plasma by coagulation assay FOOTNOTE NRG Lupus anticoagulant neutralization hexag onal phase phospholipid time inplatelet poor plasma by coagulation assay - 12/22/17 17:30 Lupus anticoagulant neutralization hexag onal phase phospholipid detection in platelet poor plasma Negative Negative Plasma thrombin time - 12/22/17 17:30 Protamine sulfate-corrected thrombin time 15.5 % 15.0-20.8 Bacteria identification in isolate by an aerobe culture - 01/19/18 09:04 Bacteria identification in isolate by anaerobe culture NOANA NRG Gram stain microscopy - 01/19/18 09:04 Gram stain microscopy No white blood cells NRG Bacteria identification in wound by cult ure - 01/19/18 09:04 Bacteria identification in wound by culture [id number] NRG FREE TEXT EXTERNAL SEE RML COMMENTS NRG QUANTITY OF GROWTH FEW NRG RML Sensitivity Panel - 01/19/18 09:04 Gentamicin susceptibility test by minimum inhibitory c oncentration <= NRG Levofloxacin susceptibility test by minimum inhibitory concentration > NRG Tobramycin susceptibility test by minimum inhibitory c oncentration S NRG Piperacillin/tazobactam susceptibility t est by minimum inhibitory concentration S NRG Ciprofloxacin susceptibility test by minimum inhibitor y concentration > NRG Meropenem susceptibility test by minimum inhibitory co ncentration 0.5 NRG Aztreonam susceptibility test by minimum inhibitory co ncentration 4 NRG Cefepime susceptibility test by minimum inhibitory con centration 4 NRG Imipenem susceptibility test by minimum inhibitory con centration 1 NRG Ceftazidime susceptibility test by minimum inhibitory concentration <= NRG RML Sensitivity Panel - 01/19/18 09:04 Gentamicin susceptibility test by minimum inhibitory c oncentration > NRG Trimethoprim/sulfamethoxazole susceptibi lity test by minimum inhibitoryconcentration R NRG Levofloxacin susceptibility test by minimum inhibitory concentration > NRG Ampicillin susceptibility test by minimum inhibitory c oncentration <= NRG Cefazolin susceptibility test by minimum inhibitory co ncentration 4 NRG Ceftriaxone susceptibility test by minimum inhibitory concentration <= NRG Piperacillin/tazobactam susceptibility t est by minimum inhibitory concentration S NRG Ciprofloxacin susceptibility test by minimum inhibitor y concentration > NRG Amoxicillin and clavulanate potassium susc PHILLIP <= NRG Bacteria identification in isolate by an aerobe culture - 03/11/18 09:43 Bacteria identification in isolate by anaerobe culture NOANA NRG Gram stain microscopy - 03/11/18 09:43 Gram stain microscopy 03-12-2018, 604. N RG Bacteria identification in wound by cult ure - 03/11/18 09:43 Bacteria identification in wound by culture [id number] NRG FREE TEXT EXTERNAL ID REPORTED 03/16/18 16:05 NRG QUANTITY OF GROWTH Isolated from broth NRG FREE TEXT ENTRY 2 SENSITIVITY REPORTED 03/17/18 12:0 5 NRG RML Sensitivity Panel - 03/11/18 09:43 Oxacillin susceptibility test by minimum inhibitory co ncentration <= NRG Clindamycin susceptibility test by minimum inhibitory concentration <= NRG Erythromycin susceptibility test by minimum inhibitory concentration > NRG Vancomycin susceptibility test by minimum inhibitory c oncentration 1 NRG Levofloxacin susceptibility test by minimum inhibitory concentration <= NRG Rifampin susceptibility test by minimum inhibitory con centration <= NRG Cefazolin susceptibility test by minimum inhibitory co ncentration <= NRG Linezolid susceptibility test by minimum inhibitory co ncentration <= NRG Penicillin G susceptibility test by minimum inhibitory concentration > NRG Moxifloxacin susceptibility test by minimum inhibitory concentration S NRG Minocycline susc PHILLIP <= NRG RML Sensitivity Panel - 03/11/18 09:43 Oxacillin susceptibility test by minimum inhibitory co ncentration <= NRG Clindamycin susceptibility test by minimum inhibitory concentration <= NRG Erythromycin susceptibility test by minimum inhibitory concentration > NRG Vancomycin susceptibility test by minimum inhibitory c oncentration 2 NRG Levofloxacin susceptibility test by minimum inhibitory concentration <= NRG Rifampin susceptibility test by minimum inhibitory con centration <= NRG Cefazolin susceptibility test by minimum inhibitory co ncentration <= NRG Linezolid susceptibility test by minimum inhibitory co ncentration 2 NRG Penicillin G susceptibility test by minimum inhibitory concentration 1 NRG Moxifloxacin susceptibility test by minimum inhibitory concentration S NRG Minocycline susc PHILLIP <= NRG PREALBUMIN - 03/24/18 16:00 PREALBUM 11.0 % 18.0-37.0 Bacteria identification in isolate by an aerobe culture - 04/05/18 09:17 Bacteria identification in isolate by anaerobe culture NOANA NRG Gram stain microscopy - 04/05/18 09:17 Gram stain microscopy No bacteria seen NRG Bacteria identification in wound by cult ure - 04/05/18 09:17 Bacteria identification in wound by culture [id number] NRG FREE TEXT EXTERNAL ID REPORTED 04/07/18 14:05 NRG QUANTITY OF GROWTH Rare NRG FREE TEXT ENTRY 2 SENSITIVITY REPORTED 04/11/18 07:0 5 NRG FREE TEXT ENTRY 3 SENSITIVITY TESTING BY MIRIAN LUO ANA PAULA NRG [facility] Sensitivity Panel - 04/05/18 09:17 Gentamicin susceptibility test by minimum inhibitory c oncentration 4 NRG Levofloxacin susceptibility test by minimum inhibitory concentration > NRG Tobramycin susceptibility test by minimum inhibitory c oncentration S NRG Piperacillin/tazobactam susceptibility t est by minimum inhibitory concentration S NRG Ciprofloxacin susceptibility test by minimum inhibitor y concentration > NRG Meropenem susceptibility test by minimum inhibitory co ncentration 0.5 NRG Aztreonam susceptibility test by minimum inhibitory co ncentration 4 NRG Cefepime susceptibility test by minimum inhibitory con centration 4 NRG Imipenem susceptibility test by minimum inhibitory con centration 1 NRG Ceftazidime susceptibility test by minimum inhibitory concentration <= NRG [facility] Sensitivity Panel - 04/05/18 09:17 Gentamicin susceptibility test by minimum inhibitory c oncentration <= NRG Levofloxacin susceptibility test by minimum inhibitory concentration <= NRG Tobramycin susceptibility test by minimum inhibitory c oncentration S NRG Piperacillin/tazobactam susceptibility t est by minimum inhibitory concentration = NRG Ciprofloxacin susceptibility test by minimum inhibitor y concentration <= NRG Meropenem susceptibility test by minimum inhibitory co ncentration 1 NRG Aztreonam susceptibility test by minimum inhibitory co ncentration 4 NRG Cefepime susceptibility test by minimum inhibitory con centration 2 NRG Imipenem susceptibility test by minimum inhibitory con centration 2 NRG Ceftazidime susceptibility test by minimum inhibitory concentration <= NRG [facility] Sensitivity Panel - 04/05/18 09:17 Gentamicin susceptibility test by minimum inhibitory c oncentration 8 NRG Clindamycin susceptibility test by minimum inhibitory concentration > NRG Erythromycin susceptibility test by minimum inhibitory concentration 2 NRG Trimethoprim/sulfamethoxazole susceptibi lity test by minimum inhibitoryconcentration > NRG Vancomycin susceptibility test by minimum inhibitory c oncentration <= NRG Ceftriaxone susceptibility test by minimum inhibitory concentration > NRG Meropenem susceptibility test by minimum inhibitory co ncentration R NRG Linezolid susceptibility test by minimum inhibitory co ncentration <= NRG Penicillin G susceptibility test by minimum inhibitory concentration 8 NRG Doxycycline > NRG Serum or plasma albumin measurement (mas s/volume) - 04/12/18 10:13 Serum or plasma albumin measurement (mass/volume) 3.0 g/dL 3.2-4.5 PREALBUMIN - 04/12/18 10:13 PREALBUM 12.0 % 18.0-37.0 Bacteria identification in isolate by an aerobe culture - 06/07/18 09:42 QUANTITY OF GROWTH Isolated NRG Bacteria identification in isolate by anaerobe culture SEE COMMEN NRG Gram stain microscopy - 06/07/18 09:42 Gram stain microscopy No bacteria seen NRG Bacteria identification in wound by cult ure - 06/07/18 09:42 Bacteria identification in wound by culture [id number] NRG FREE TEXT EXTERNAL (BETA-HEMOLYTIC STRAIN) NRG QUANTITY OF GROWTH Rare NRG FREE TEXT ENTRY 2 ID REPORTED 06/10/09 14:05 NRG [facility] Sensitivity Panel - 06/07/18 09:42 Gentamicin susceptibility test by minimum inhibitory c oncentration 4 NRG Levofloxacin susceptibility test by minimum inhibitory concentration > NRG Tobramycin susceptibility test by minimum inhibitory c oncentration <= NRG Piperacillin/tazobactam susceptibility t est by minimum inhibitory concentration = NRG Ciprofloxacin susceptibility test by minimum inhibitor y concentration > NRG Meropenem susceptibility test by minimum inhibitory co ncentration 1 NRG Aztreonam susceptibility test by minimum inhibitory co ncentration 16 NRG Cefepime susceptibility test by minimum inhibitory con centration 4 NRG Imipenem susceptibility test by minimum inhibitory con centration S NRG Ceftazidime susceptibility test by minimum inhibitory concentration <= NRG RML Sensitivity Panel - 06/07/18 09:42 Vancomycin susceptibility test by minimum inhibitory c oncentration 1 NRG Ampicillin susceptibility test by minimum inhibitory c oncentration 1 NRG Linezolid susceptibility test by minimum inhibitory co ncentration <= NRG Daptomycin susc PHILLIP 2 NRG RML Sensitivity Panel - 06/07/18 09:42 Gentamicin susceptibility test by minimum inhibitory c oncentration > NRG Trimethoprim/sulfamethoxazole susceptibi lity test by minimum inhibitoryconcentration > NRG Levofloxacin susceptibility test by minimum inhibitory concentration > NRG Ampicillin susceptibility test by minimum inhibitory c oncentration <= NRG Cefazolin susceptibility test by minimum inhibitory co ncentration 4 NRG Ceftriaxone susceptibility test by minimum inhibitory concentration <= NRG Piperacillin/tazobactam susceptibility t est by minimum inhibitory concentration <= NRG Ciprofloxacin susceptibility test by minimum inhibitor y concentration > NRG Amoxicillin and clavulanate potassium susc PHILLIP <= NRG Fibrin D-dimer FEU measurement in platel et poor plasma (mass/volume) - 07/02/18 11:05 Fibrin D-dimer FEU measurement in platelet poor plasma (mass/volume) 0.92 ug/mL 0.00-0.49 Gram stain microscopy - 08/13/18 09:23 Gram stain microscopy [id number]. NRG Bacteria identification in wound by cult ure - 08/13/18 09:23 Bacteria identification in wound by culture [id number] NRG FREE TEXT EXTERNAL SUSCEPTIBILITY REPORTED 08/16 12 :45 NRG QUANTITY OF GROWTH FEW NRG FREE TEXT ENTRY 2 RESISTANT ORGANISM/CONTACT PRECA UTIONS NRG Dirithromycin susceptibility test by dis k diffusion - 08/13/18 09:23 Oxacillin susceptibility test by minimum inhibitory co ncentration > NRG Clindamycin susceptibility test by minimum inhibitory concentration > NRG Erythromycin susceptibility test by minimum inhibitory concentration > NRG Trimethoprim/sulfamethoxazole susceptibi lity test by minimum inhibitoryconcentration <= NRG Vancomycin susceptibility test by minimum inhibitory c oncentration 1 NRG Levofloxacin susceptibility test by minimum inhibitory concentration > NRG Rifampin susceptibility test by minimum inhibitory con centration <= NRG Cefazolin susceptibility test by minimum inhibitory co ncentration > NRG Linezolid susceptibility test by minimum inhibitory co ncentration 2 NRG Penicillin G susceptibility test by minimum inhibitory concentration > NRG Moxifloxacin susceptibility test by minimum inhibitory concentration > NRG Minocycline susc PHILLIP <= NRG Dirithromycin susceptibility test by dis k diffusion - 08/13/18 09:23 Gentamicin susceptibility test by minimum inhibitory c oncentration 4 NRG Levofloxacin susceptibility test by minimum inhibitory concentration > NRG Tobramycin susceptibility test by minimum inhibitory c oncentration <= NRG Piperacillin/tazobactam susceptibility t est by minimum inhibitory concentration = NRG Ciprofloxacin susceptibility test by minimum inhibitor y concentration > NRG Meropenem susceptibility test by minimum inhibitory co ncentration 0.5 NRG Aztreonam susceptibility test by minimum inhibitory co ncentration 8 NRG Cefepime susceptibility test by minimum inhibitory con centration 8 NRG Imipenem susceptibility test by minimum inhibitory con centration 1 NRG Ceftazidime susceptibility test by minimum inhibitory concentration <= NRG Dirithromycin susceptibility test by dis k diffusion - 08/13/18 09:23 Gentamicin susceptibility test by minimum inhibitory c oncentration > NRG Trimethoprim/sulfamethoxazole susceptibi lity test by minimum inhibitoryconcentration > NRG Levofloxacin susceptibility test by minimum inhibitory concentration > NRG Ampicillin susceptibility test by minimum inhibitory c oncentration <= NRG Cefazolin susceptibility test by minimum inhibitory co ncentration 8 NRG Ceftriaxone susceptibility test by minimum inhibitory concentration <= NRG Piperacillin/tazobactam susceptibility t est by minimum inhibitory concentration <= NRG Ciprofloxacin susceptibility test by minimum inhibitor y concentration > NRG Amoxicillin and clavulanate potassium susc PHILLIP <= NRG Gram stain microscopy - 08/27/18 09:15 Gram stain microscopy No bacteria seen NRG Bacteria identification in wound by cult ure - 08/27/18 09:15 Bacteria identification in wound by culture [id number] NRG FREE TEXT EXTERNAL SUSCEPTIBILITY REPORTED 08/30 11 :35 NRG QUANTITY OF GROWTH Rare NRG Dirithromycin susceptibility test by dis k diffusion - 08/27/18 09:15 Gentamicin susceptibility test by minimum inhibitory c oncentration <= NRG Levofloxacin susceptibility test by minimum inhibitory concentration > NRG Tobramycin susceptibility test by minimum inhibitory c oncentration <= NRG Piperacillin/tazobactam susceptibility t est by minimum inhibitory concentration = NRG Ciprofloxacin susceptibility test by minimum inhibitor y concentration > NRG Meropenem susceptibility test by minimum inhibitory co ncentration 1 NRG Aztreonam susceptibility test by minimum inhibitory co ncentration 16 NRG Cefepime susceptibility test by minimum inhibitory con centration 4 NRG Imipenem susceptibility test by minimum inhibitory con centration 0.5 NRG Ceftazidime susceptibility test by minimum inhibitory concentration 4 NRG Dirithromycin susceptibility test by dis k diffusion - 08/27/18 09:15 Vancomycin susceptibility test by minimum inhibitory c oncentration 1 NRG Ampicillin susceptibility test by minimum inhibitory c oncentration 1 NRG Linezolid susceptibility test by minimum inhibitory co ncentration <= NRG Daptomycin susc PHILLIP 2 NRG Gram stain microscopy - 10/08/18 09:15 Gram stain microscopy No bacteria seen NRG Bacteria identification in wound by cult ure - 10/08/18 09:15 Bacteria identification in wound by culture [id number] NRG FREE TEXT EXTERNAL SUSCEPTIBILITY REPORTED 10/11 13: 50 NRG QUANTITY OF GROWTH Rare NRG FREE TEXT ENTRY 2 ID REPORTED 10/10/18 11:15 NRG FREE TEXT ENTRY 3 MRSA; SEE COMMENTS NR G Dirithromycin susceptibility test by dis k diffusion - 10/08/18 09:15 Gentamicin susceptibility test by minimum inhibitory c oncentration 4 NRG Levofloxacin susceptibility test by minimum inhibitory concentration > NRG Tobramycin susceptibility test by minimum inhibitory c oncentration <= NRG Piperacillin/tazobactam susceptibility t est by minimum inhibitory concentration <= NRG Ciprofloxacin susceptibility test by minimum inhibitor y concentration > NRG Meropenem susceptibility test by minimum inhibitory co ncentration 0.5 NRG Aztreonam susceptibility test by minimum inhibitory co ncentration 8 NRG Cefepime susceptibility test by minimum inhibitory con centration 8 NRG Imipenem susceptibility test by minimum inhibitory con centration 1 NRG Ceftazidime susceptibility test by minimum inhibitory concentration <= NRG Dirithromycin susceptibility test by dis k diffusion - 10/08/18 09:15 Oxacillin susceptibility test by minimum inhibitory co ncentration > NRG Clindamycin susceptibility test by minimum inhibitory concentration > NRG Erythromycin susceptibility test by minimum inhibitory concentration > NRG Trimethoprim/sulfamethoxazole susceptibi lity test by minimum inhibitoryconcentration <= NRG Vancomycin susceptibility test by minimum inhibitory c oncentration 1 NRG Levofloxacin susceptibility test by minimum inhibitory concentration > NRG Rifampin susceptibility test by minimum inhibitory con centration <= NRG Cefazolin susceptibility test by minimum inhibitory co ncentration > NRG Linezolid susceptibility test by minimum inhibitory co ncentration 2 NRG Penicillin G susceptibility test by minimum inhibitory concentration > NRG Moxifloxacin susceptibility test by minimum inhibitory concentration > NRG Minocycline susc PHILLIP > NRG Prealbumin - 10/11/18 10:38 Serum or plasma prealbumin measurement (mass/volume) 10.8 % 18.0-37.0 Prealbumin - 11/01/18 10:20 Serum or plasma prealbumin measurement (mass/volume) 13.7 % 18.0-37.0 Gram stain microscopy - 11/15/18 08:58 Gram stain microscopy No bacteria seen NRG Bacteria identification in wound by cult ure - 11/15/18 08:58 Bacteria identification in wound by culture [id number] NRG FREE TEXT EXTERNAL SUSCEPTIBILITY REPORTED 11/18/18 09:38 NRG QUANTITY OF GROWTH Rare NRG Dirithromycin susceptibility test by dis k diffusion - 11/15/18 08:58 Gentamicin susceptibility test by minimum inhibitory c oncentration > NRG Trimethoprim/sulfamethoxazole susceptibi lity test by minimum inhibitoryconcentration = NRG Levofloxacin susceptibility test by minimum inhibitory concentration <= NRG Ceftriaxone susceptibility test by minimum inhibitory concentration 4 NRG Ciprofloxacin susceptibility test by minimum inhibitor y concentration <= NRG Meropenem susceptibility test by minimum inhibitory co ncentration 2 NRG Imipenem susceptibility test by minimum inhibitory con centration S NRG Prealbumin - 12/03/18 09:53 Serum or plasma prealbumin measurement (mass/volume) 12.3 % 18.0-37.0 Prealbumin - 01/03/19 09:39 Serum or plasma prealbumin measurement (mass/volume) 16.0 % 18.0-37.0 Serum or plasma gentamicin measurement ( mass/volume) - 02/09/19 13:45 Serum or plasma gentamicin measurement (mass/volume) 0.0 ug/mL <=10.0 Gentamicin trough - 02/25/19 09:45 Gentamicin trough < ug/mL <=2.0 Prealbumin - 03/30/19 14:57 Serum or plasma prealbumin measurement (mass/volume) 19.1 % 18.0-37.0 Gram stain microscopy - 03/31/19 08:15 Gram stain microscopy NO BACTERIA SEEN NRG Bacteria identification in wound by cult ure - 03/31/19 08:15 Bacteria identification in wound by culture [id number] NRG FREE TEXT EXTERNAL SUSCEPTIBILITY REPORTED 04-04-19 , 1248 NRG QUANTITY OF GROWTH Rare NRG MRSA AGAR METHICILLIN-RESISTANT STAPH AUREUS (MRSA NRG FREE TEXT ENTRY 2 PRELIM RAPID ID BY VCP 04-01-19, 1215 NRG FREE TEXT ENTRY 3 RML CONFIRMED ID NRG CALL POSITIVES (F1 HELP) 04-01-18, CONFIRMED BY RML NRG PBP2 PRELIM SCREEN FOR MRSA IS POSITIVE/VCP NRG Dirithromycin susceptibility test by dis k diffusion - 03/31/19 08:15 Oxacillin susceptibility test by minimum inhibitory co ncentration > NRG Clindamycin susceptibility test by minimum inhibitory concentration > NRG Erythromycin susceptibility test by minimum inhibitory concentration > NRG Trimethoprim/sulfamethoxazole susceptibi lity test by minimum inhibitoryconcentration <= NRG Vancomycin susceptibility test by minimum inhibitory c oncentration 1 NRG Levofloxacin susceptibility test by minimum inhibitory concentration > NRG Rifampin susceptibility test by minimum inhibitory con centration <= NRG Cefazolin susceptibility test by minimum inhibitory co ncentration > NRG Linezolid susceptibility test by minimum inhibitory co ncentration <= NRG Penicillin G susceptibility test by minimum inhibitory concentration > NRG Minocycline susc PHILLIP > NRG Dirithromycin susceptibility test by dis k diffusion - 03/31/19 08:15 Gentamicin susceptibility test by minimum inhibitory c oncentration > NRG Levofloxacin susceptibility test by minimum inhibitory concentration > NRG Tobramycin susceptibility test by minimum inhibitory c oncentration 4 NRG Piperacillin/tazobactam susceptibility t est by minimum inhibitory concentration <= NRG Ciprofloxacin susceptibility test by minimum inhibitor y concentration > NRG Meropenem susceptibility test by minimum inhibitory co ncentration 0.5 NRG Aztreonam susceptibility test by minimum inhibitory co ncentration 4 NRG Cefepime susceptibility test by minimum inhibitory con centration 8 NRG Imipenem susceptibility test by minimum inhibitory con centration 1 NRG Ceftazidime susceptibility test by minimum inhibitory concentration <= NRG PDM - 09 PANEL (PROFILE 1) - 04/13/19 12 :05 Prescribed Drug 1 Oxycodone NRG Creatinine 89.0 mg/dL > or = 20.0 pH 7.0 4.5-9.0 Oxidant NEGATIVE mcg/mL <200 Amphetamines NEGATIVE ng/mL <500 medMATCH Amphetamines CONSISTENT NRG Benzodiazepines NEGATIVE ng/mL <100 medMATCH Benzodiazepines CONSISTENT NRG Marijuana Metabolite NEGATIVE ng/mL <20 medMATCH Marijuana Metab CONSISTENT NRG Cocaine Metabolite NEGATIVE ng/mL <150 medMATCH Cocaine Metab CONSISTENT NRG Opiates NEGATIVE CONFIRMED ng/mL <100 Oxycodone POSITIVE ng/mL <100 COMMENT NRG Codeine NEGATIVE ng/mL <50 medMATCH Codeine CONSISTENT NRG Hydrocodone NEGATIVE ng/mL <50 medMATCH Hydrocodone CONSISTENT NRG Hydromorphone NEGATIVE ng/mL <50 medMATCH Hydromorphone CONSISTENT NRG Morphine NEGATIVE ng/mL <50 medMATCH Morphine CONSISTENT NRG Norhydrocodone NEGATIVE ng/mL <50 medMATCH Norhydrocodone CONSISTENT NRG Noroxycodone 2001 ng/mL <50 medMATCH Noroxycodone CONSISTENT NRG Oxycodone 1172 ng/mL <50 medMATCH Oxycodone CONSISTENT NRG Oxymorphone 2491 ng/mL <50 medMATCH Oxymorphone CONSISTENT NRG Barbiturates NEGATIVE ng/mL <300 medMATCH Barbiturates CONSISTENT NRG Methadone Metabolite NEGATIVE ng/mL <100 medMATCH Methadone Metab CONSISTENT NRG Phencyclidine NEGATIVE ng/mL <25 medMATCH Phencyclidine CONSISTENT NRG Bacteria identification in isolate by an aerobe culture - 04/18/19 10:15 Bacteria identification in isolate by anaerobe culture NOANA NRG Gram stain microscopy - 04/18/19 10:15 Gram stain microscopy No bacteria seen NRG Bacteria identification in wound by cult ure - 04/18/19 10:15 Bacteria identification in wound by culture [id number] NRG FREE TEXT EXTERNAL SUSCEPTIBILITY TO FOLLOW NRG QUANTITY OF GROWTH Rare NRG MRSA AGAR NO INDUCIBLE CLINDAMYCIN RESISTANCE NRG FREE TEXT ENTRY 2 PRESUMPTIVE MRSA; SCREEN AT [facility] 04/19 NRG FREE TEXT ENTRY 3 PRELIM RAPID ID TEST AT [facility] 04/19 11:06 NRG CALL POSITIVES (F1 HELP) CALLED TO [facility] 04/19 11:10 NRG PBP2 RESISTANT ORGANISM/CONTACT PRECAUTIONS NRG FREE TEXT ENTRY 4 DETECTED NRG Dirithromycin susceptibility test by dis k diffusion - 04/18/19 10:15 Oxacillin susceptibility test by minimum inhibitory co ncentration > NRG Clindamycin susceptibility test by minimum inhibitory concentration > NRG Erythromycin susceptibility test by minimum inhibitory concentration > NRG Trimethoprim/sulfamethoxazole susceptibi lity test by minimum inhibitoryconcentration <= NRG Vancomycin susceptibility test by minimum inhibitory c oncentration 1 NRG Levofloxacin susceptibility test by minimum inhibitory concentration > NRG Rifampin susceptibility test by minimum inhibitory con centration <= NRG Cefazolin susceptibility test by minimum inhibitory co ncentration > NRG Linezolid susceptibility test by minimum inhibitory co ncentration 2 NRG Penicillin G susceptibility test by minimum inhibitory concentration > NRG Minocycline susc PHILLIP > NRG Dirithromycin susceptibility test by dis k diffusion - 04/18/19 10:15 Gentamicin susceptibility test by minimum inhibitory c oncentration 4 NRG Levofloxacin susceptibility test by minimum inhibitory concentration > NRG Tobramycin susceptibility test by minimum inhibitory c oncentration <= NRG Piperacillin/tazobactam susceptibility t est by minimum inhibitory concentration = NRG Ciprofloxacin susceptibility test by minimum inhibitor y concentration > NRG Meropenem susceptibility test by minimum inhibitory co ncentration 0.5 NRG Aztreonam susceptibility test by minimum inhibitory co ncentration 16 NRG Cefepime susceptibility test by minimum inhibitory con centration 4 NRG Imipenem susceptibility test by minimum inhibitory con centration 1 NRG Ceftazidime susceptibility test by minimum inhibitory concentration 4 NRG Gram stain microscopy - 05/26/19 09:55 Gram stain microscopy NO BACTERIA SEEN NRG Bacteria identification in wound by cult ure - 05/26/19 09:55 Bacteria identification in wound by culture [id number] NRG QUANTITY OF GROWTH Rare NRG CALL POSITIVES (F1 HELP) MRSA SCREEN CALLED TO [facility]/ 05-27-19/KD NRG SUSCEPTIBILITY SUSCEPTIBILITY REPORTED 05-30-19 4 NRG MRSA SCREEN MRSA SCREEN AT [facility] POSITIVE 05-27-19 NRG RAPID ID PRELIM RAPID ID BY [facility] [id number] NRG MRSA CONFIRMATION RML CONFIRMED MRSA 05-27 11:11 NRG ID CONFIRMATION RML CONFIRMED ID 05/27/19 17:05 NRG Dirithromycin susceptibility test by dis k diffusion - 05/26/19 09:55 Oxacillin susceptibility test by minimum inhibitory co ncentration > NRG Clindamycin susceptibility test by minimum inhibitory concentration > NRG Erythromycin susceptibility test by minimum inhibitory concentration > NRG Trimethoprim/sulfamethoxazole susceptibi lity test by minimum inhibitoryconcentration <= NRG Vancomycin susceptibility test by minimum inhibitory c oncentration 1 NRG Levofloxacin susceptibility test by minimum inhibitory concentration > NRG Rifampin susceptibility test by minimum inhibitory con centration <= NRG Cefazolin susceptibility test by minimum inhibitory co ncentration > NRG Linezolid susceptibility test by minimum inhibitory co ncentration 2 NRG Penicillin G susceptibility test by minimum inhibitory concentration > NRG Moxifloxacin susceptibility test by minimum inhibitory concentration > NRG Minocycline susc PHILLIP > NRG Dirithromycin susceptibility test by dis k diffusion - 05/26/19 09:55 Oxacillin susceptibility test by minimum inhibitory co ncentration > NRG Clindamycin susceptibility test by minimum inhibitory concentration > NRG Erythromycin susceptibility test by minimum inhibitory concentration > NRG Vancomycin susceptibility test by minimum inhibitory c oncentration 2 NRG Levofloxacin susceptibility test by minimum inhibitory concentration > NRG Rifampin susceptibility test by minimum inhibitory con centration <= NRG Cefazolin susceptibility test by minimum inhibitory co ncentration R NRG Linezolid susceptibility test by minimum inhibitory co ncentration 4 NRG Penicillin G susceptibility test by minimum inhibitory concentration 1 NRG Minocycline susc PHILLIP <= NRG Encounters ACCT No. Visit Date/Time Discharge Status Pt. Type Provider Facility Loc./Unit Complaint [id number] 04/13/2019 10:00:00 Document Registration [id number] 07/18/2019 08:48:00 23:59:59 CLS Outpatient SHANI HUTCHINSON MD [facility] [id number] 07/11/2019 08:47:00 23:59:59 CLS Outpatient SHANI HUTCHINSON MD [facility] [id number] 07/04/2019 10:35:00 23:59:59 CLS Outpatient DEANA ALARCON MD [facility] ONC [id number] 07/04/2019 08:40:00 23:59:59 CLS Outpatient SHANI HUTCHINSON MD [facility] [id number] 06/27/2019 10:58:00 00:01:00 DIS Outpatient DEANA ALARCON MD [facility] ONC [id number] 06/27/2019 08:45:00 23:59:59 CLS Outpatient SHANI HUTCHINSON MD [facility] [id number] 06/20/2019 08:46:00 23:59:59 CLS Outpatient SHANI HUTCHINSON MD [facility] [id number] 06/13/2019 08:45:00 23:59:59 CLS Outpatient SHANI HUTCHINSON MD [facility] [id number] 2019 08:46:00 23:59:59 CLS Outpatient SHANI HUTCHINSON MD [facility] [id number] 05/30/2019 08:41:00 23:59:59 CLS Outpatient SHANI HUTCHINSON MD [facility] [id number] 05/26/2019 10:21:00 23:59:59 CLS Outpatient SHANI HUTCHINSON MD [facility] LAB [id number] 05/26/2019 08:47:00 23:59:59 CLS Outpatient SHANI HUTCHINSON MD [facility] [id number] 05/23/2019 09:51:00 23:59:59 CLS Outpatient SHANI HUTCHINSON MD [facility] [id number] 05/19/2019 08:18:00 23:59:59 CLS Outpatient SHANI HUTCHINSON MD [facility] [id number] 05/16/2019 08:45:00 23:59:59 CLS Outpatient SHANI HUTCHINSON MD [facility] [id number] 05/12/2019 08:42:00 23:59:59 CLS Outpatient SHANI HUTCHINSON MD [facility] [id number] 05/09/2019 08:56:00 23:59:59 CLS Outpatient SHANI HUTCHINSON MD [facility] [id number] 05/05/2019 08:18:00 23:59:59 CLS Outpatient ZAIRE WESTFALL MD [facility] [id number] 04/28/2019 08:22:00 23:59:59 CLS Outpatient ZAIRE WESTFALL MD [facility] [id number] 04/25/2019 08:21:00 23:59:59 CLS Outpatient MARIALUISA ALFARO MD [facility] [id number] 04/21/2019 08:18:00 23:59:59 CLS Outpatient ZAIRE WESTFALL MD [facility] [id number] 04/18/2019 08:43:00 23:59:59 CLS Outpatient MARIALUISA ALFARO MD [facility] [id number] 04/14/2019 08:23:00 23:59:59 CLS Outpatient ZAIRE WESTFALL MD [facility] [id number] 04/11/2019 08:37:00 23:59:59 CLS Outpatient MARIALUISA ALFARO MD [facility] [id number] 04/07/2019 08:09:00 23:59:59 CLS Outpatient ZAIRE WESTFALL MD [facility] [id number] 04/04/2019 13:06:00 23:59:59 CLS Outpatient ZAIRE WESTFALL MD [facility] [id number] 03/31/2019 08:16:00 23:59:59 CLS Outpatient ZAIRE WESTFALL MD [facility] [id number] 03/30/2019 14:46:00 23:59:59 CLS Outpatient SHANI HUTCHINSON MD [facility] LAB [id number] 03/24/2019 08:17:00 23:59:59 CLS Outpatient ZAIRE WESTFALL MD [facility] [id number] 03/21/2019 08:17:00 23:59:59 CLS Outpatient MARIALUISA ALFARO MD [facility] [id number] 03/17/2019 08:20:00 23:59:59 CLS Outpatient ZAIRE WESTFALL MD [facility] [id number] 03/14/2019 13:17:00 23:59:59 CLS Outpatient MARIALUISA ALFARO MD [facility] [id number] 03/11/2019 08:18:00 23:59:59 CLS Outpatient SHANI HUTCHINSON MD [facility] [id number] 03/07/2019 08:18:00 23:59:59 CLS Outpatient SHANI HUTCHINSON MD [facility] [id number] 03/04/2019 08:13:00 23:59:59 CLS Outpatient SHANI HUTCHINSON MD [facility] [id number] 02/28/2019 08:17:00 23:59:59 CLS Outpatient SHANI HUTCHINSON MD [facility] [id number] 01/10/2019 09:48:00 00:01:00 DIS Outpatient DORIAN LLANOS, DEANA [facility] ONC [id number] 02/25/2019 09:37:00 23:59:59 CLS Outpatient SHANI HUTCHINSON MD [facility] LAB NON PRESSURE CHRNOIC UL CER [id number] 02/25/2019 08:11:00 23:59:59 CLS Outpatient SHANI HUTCHINSON MD [facility] [id number] 02/21/2019 08:22:00 23:59:59 CLS Outpatient SHANI HUTCHINSON MD [facility] [id number] 02/18/2019 08:18:00 23:59:59 CLS Outpatient SHANI HUTCHINSON MD [facility] [id number] 02/14/2019 08:17:00 23:59:59 CLS Outpatient SHANI HUTCHINSON MD [facility] [id number] 02/11/2019 08:15:00 23:59:59 CLS Outpatient SHANI HUTCHINSON MD [facility] [id number] 02/09/2019 13:37:00 23:59:59 CLS Outpatient SHANI HUTCHINSON MD [facility] LAB CHRONIC ULCER [id number] 02/08/2019 15:24:00 23:59:59 CLS Outpatient SHANI HUTCHINSON MD [facility] [id number] 01/31/2019 08:22:00 23:59:59 CLS Outpatient SHANI HUTCHINSON MD [facility] [id number] 01/28/2019 08:21:00 23:59:59 CLS Outpatient SHANI HUTCHINSON MD [facility] [id number] 01/24/2019 08:21:00 23:59:59 CLS Outpatient SHANI HUTCHINSON MD [facility] [id number] 01/17/2019 13:59:00 23:59:59 CLS Outpatient SHANI HUTCHINSON MD [facility] [id number] 01/14/2019 08:14:00 23:59:59 CLS Outpatient SHANI HUTCHINSON MD [facility] [id number] 01/10/2019 08:14:00 23:59:59 CLS Outpatient SHANI HUTCHINSON MD [facility] [id number] 01/07/2019 08:16:00 23:59:59 CLS Outpatient SHANI HUTCHINSON MD [facility] [id number] 01/03/2019 09:30:00 23:59:59 CLS Outpatient SHANI HUTCHINSON MD [facility] LAB [id number] 01/03/2019 08:14:00 23:59:59 CLS Outpatient SHANI HUTCHINSON MD [facility] [id number] 12/31/2018 08:12:00 23:59:59 CLS Outpatient SHANI HUTCHINSON MD [facility] [id number] 12/27/2018 08:15:00 23:59:59 CLS Outpatient SHANI HUTCHINSON MD [facility] [id number] 12/24/2018 08:17:00 23:59:59 CLS Outpatient SHANI HUTCHINSON MD [facility] [id number] 12/20/2018 08:13:00 23:59:59 CLS Outpatient SHANI HUTCHINSON MD [facility] [id number] 12/17/2018 12:05:00 23:59:59 CLS Outpatient MARY PERSAUD APRN [facility] [id number] 12/13/2018 08:14:00 23:59:59 CLS Outpatient SHANI HUTCHINSON MD [facility] [id number] 12/10/2018 08:18:00 23:59:59 CLS Outpatient SHANI HUTCHINSON MD [facility] [id number] 12/06/2018 09:02:00 23:59:59 CLS Outpatient SHANI HUTCHINSON MD [facility] [id number] 12/03/2018 09:41:00 23:59:59 CLS Outpatient SHANI HUTCHINSON MD [facility] LAB L97.222 [id number] 12/03/2018 08:09:00 23:59:59 CLS Outpatient SHANI HUTCHINSON MD [facility] [id number] 11/29/2018 08:19:00 23:59:59 CLS Outpatient SHANI HUTCHINSON MD [facility] [id number] 11/26/2018 08:15:00 23:59:59 CLS Outpatient SHANI HUTCHINSON MD [facility] [id number] 11/22/2018 08:01:00 23:59:59 CLS Outpatient SHANI HUTCHINSON MD [facility] [id number] 11/19/2018 08:18:00 23:59:59 CLS Outpatient SHANI HUTCHINSON MD [facility] [id number] 11/15/2018 08:12:00 23:59:59 CLS Outpatient SHANI HUTCHINSON MD [facility] [id number] 10/20/2018 09:15:00 00:01:00 DIS Outpatient DEANA ALARCON MD [facility] ONC [id number] 11/12/2018 12:31:00 23:59:59 CLS Outpatient SHANI HUTCHINSON MD [facility] [id number] 11/05/2018 08:16:00 23:59:59 CLS Outpatient SHANI HUTCHINSON MD [facility] [id number] 11/01/2018 10:09:00 23:59:59 CLS Outpatient SHANI HUTCHINSON MD [facility] LAB ROUTINE LAB [id number] 11/01/2018 08:13:00 23:59:59 CLS Outpatient SHANI HUTCHINSON MD [facility] [id number] 10/29/2018 12:11:00 23:59:59 CLS Outpatient MARY PERSAUD APRN [facility] [id number] 10/25/2018 08:14:00 23:59:59 CLS Outpatient SHANI HUTCHINSON MD [facility] [id number] 10/22/2018 08:12:00 23:59:59 CLS Outpatient SHANI HUTCHINSON MD [facility] [id number] 10/15/2018 08:16:00 23:59:59 CLS Outpatient SHANI HUTCHINSON MD [facility] [id number] 10/11/2018 09:53:00 23:59:59 CLS Outpatient SHANI HUTCHINSON MD [facility] LAB [id number] 10/11/2018 08:13:00 23:59:59 CLS Outpatient SHANI HUTCHINSON MD [facility] [id number] 10/08/2018 08:19:00 23:59:59 CLS Outpatient SHANI HUTCHINSON MD [facility] [id number] 10/01/2018 08:11:00 23:59:59 CLS Outpatient MARY PERSAUD APRN [facility] [id number] 09/28/2018 13:18:00 23:59:59 CLS Preadmit SHANI HUTCHINSON MD [facility] RAD ATHEROSCLEROSIS OF MANUEL VE ARTERIES OF LT LEG [id number] 09/27/2018 08:16:00 23:59:59 CLS Outpatient SHANI HUTCHINSON MD [facility] [id number] 09/24/2018 08:18:00 019 23:59:59 CLS Outpatient SHANI HUTCHINSON MD [facility] [id number] 09/20/2018 08:17:00 019 23:59:59 CLS Outpatient SHANI HUTCHINSON MD [facility] [id number] 09/17/2018 08:17:00 23:59:59 CLS Outpatient SHANI HUTCHINSON MD [facility] [id number] 09/13/2018 08:18:00 23:59:59 CLS Outpatient SHANI HUTCHINSON MD [facility] [id number] 09/10/2018 08:14:00 23:59:59 CLS Outpatient SHANI HUTCHINSON MD [facility] [id number] 09/08/2018 08:11:00 23:59:59 CLS Outpatient SHANI HUTCHINSON MD [facility] [id number] 09/06/2018 08:15:00 23:59:59 CLS Outpatient SHANI HUTCHINSON MD [facility] [id number] 09/03/2018 08:13:00 23:59:59 CLS Outpatient SHANI HUTCHINSON MD [facility] [id number] 08/30/2018 07:28:00 11:05:00 DIS Outpatient PEDRO HINSON DO [facility] ENDO ANEMIA/HX POLYPS/POOR P REP [id number] 08/27/2018 08:17:00 23:59:59 CLS Outpatient HSANI HUTCHINSON MD [facility] [id number] 08/24/2018 09:05:00 23:59:59 CLS Outpatient PEDRO HINSON DO [facility] CARD GASTROPARESIS [id number] 08/23/2018 08:17:00 23:59:59 CLS Outpatient SHANI HUTCHINSON MD [facility] [id number] 08/23/2018 05:40:00 12:02:00 DIS Outpatient PEDRO HINSON DO [facility] PREOP COLONOSCOPY/EGD [id number] 08/20/2018 08:17:00 23:59:59 CLS Outpatient SHANI HUTCHINSON MD [facility] [id number] 08/16/2018 08:15:00 23:59:59 CLS Outpatient SHANI HUTCHINSON MD [facility] [id number] 07/29/2018 09:36:00 06/09/2 019 00:01:00 DIS Outpatient DORIAN LLANOS, ROLLEMARGE [facility] ONC [id number] 08/13/2018 08:13:00 23:59:59 CLS Outpatient SHANI HUTCHINSON MD [facility] [id number] 08/09/2018 11:58:00 15:10:00 DIS Outpatient PEDRO HINSON DO [facility] ENDO HX COLON POLYPS/HX BLANE DEANNA ULCERS [id number] 08/06/2018 08:13:00 23:59:59 CLS Outpatient SHANI HUTCHINSON MD [facility] [id number] 08/06/2018 11:37:00 12:36:00 DIS Outpatient PEDRO HINSON DO [facility] PREOP COLONOSCOPY/EGD [id number] 07/30/2018 08:13:00 23:59:59 CLS Outpatient SHANI HUTCHINSON MD [facility] [id number] 07/26/2018 09:46:00 23:59:59 CLS Outpatient SHANI HUTCHINSON MD [facility] LAB [id number] 07/26/2018 08:19:00 23:59:59 CLS Outpatient SHANI HUTCHINSON MD [facility] [id number] 07/23/2018 08:17:00 23:59:59 CLS Outpatient SHANI HUTCHINSON MD [facility] [id number] 07/19/2018 08:13:00 23:59:59 CLS Outpatient SHANI HUTCHINSON MD [facility] [id number] 07/16/2018 08:18:00 23:59:59 CLS Outpatient MARY PERSAUD APRN [facility] [id number] 07/12/2018 08:18:00 23:59:59 CLS Outpatient SHANI HUTCHINSON MD [facility] [id number] 07/09/2018 08:18:00 23:59:59 CLS Outpatient SHANI HUTCHINSON MD [facility] [id number] 07/05/2018 08:21:00 23:59:59 CLS Outpatient SHANI HUTCHINSON MD [facility] [id number] 07/02/2018 11:00:00 23:59:59 CLS Outpatient SHANI HUTCHINSON MD [facility] LAB L97.222,L97.212 [id number] 07/02/2018 09:18:00 23:59:59 CLS Outpatient SHANI HUTCHINSON MD [facility] [id number] 06/28/2018 08:21:00 23:59:59 CLS Outpatient SHANI HUTCHINSON MD [facility] [id number] 06/24/2018 08:17:00 23:59:59 CLS Outpatient MARY PERSAUD APRN [facility] [id number] 06/21/2018 08:20:00 23:59:59 CLS Outpatient SHANI HUTCHINSON MD [facility] [id number] 06/17/2018 08:17:00 23:59:59 CLS Outpatient MARY PERSAUD APRN [facility] [id number] 06/14/2018 08:19:00 23:59:59 CLS Outpatient SHANI HUTCHINSON MD [facility] [id number] 06/09/2018 08:13:00 23:59:59 CLS Outpatient SHANI HUTCHINSON MD [facility] [id number] 06/07/2018 08:12:00 23:59:59 CLS Outpatient SHANI HUTCHINSON MD [facility] [id number] 05/31/2018 08:21:00 23:59:59 CLS Outpatient SHANI HUTCHINSON MD [facility] [id number] 05/26/2018 10:29:00 23:59:59 CLS Outpatient SHANI HUTCHINSON MD [facility] [id number] 05/24/2018 08:18:00 23:59:59 CLS Outpatient SHANI HUTCHINSON MD [facility] [id number] 05/17/2018 08:21:00 23:59:59 CLS Outpatient SHANI HUTCHINSON MD [facility] [id number] 05/10/2018 08:15:00 23:59:59 CLS Outpatient SHANI HUTCHINSON MD [facility] [id number] 04/26/2018 09:35:00 00:01:00 DIS Outpatient DORIAN LLANOS, ROLLEMARGE [facility] ONC [id number] 05/05/2018 09:26:00 23:59:59 CLS Outpatient SHANI HUTCHINSON MD [facility] [id number] 04/26/2018 08:12:00 23:59:59 CLS Outpatient SHANI HUTCHINSON MD [facility] [id number] 04/19/2018 08:02:00 23:59:59 CLS Outpatient SHANI HUTCHINSON MD [facility] [id number] 04/12/2018 09:58:00 23:59:59 CLS Outpatient SHANI HUTCHINSON MD [facility] LAB E44.0 L97.222 L97.212 [id number] 04/12/2018 08:04:00 23:59:59 CLS Outpatient SHANI HUTCHINSON MD [facility] [id number] 04/05/2018 08:01:00 019 23:59:59 CLS Outpatient SHANI HUTCHINSON MD [facility] [id number] 03/29/2018 08:07:00 019 23:59:59 CLS Outpatient SHANI HUTCHINSON MD [facility] [id number] 03/26/2018 08:10:00 019 23:59:59 CLS Outpatient SHANI HUTCHINSON MD [facility] [id number] 03/24/2018 15:48:00 23:59:59 CLS Outpatient SHANI HUTCHINSON MD [facility] LAB NON PRESSURE ULCER OF L EFT CALF [id number] 03/24/2018 08:00:00 019 23:59:59 CLS Outpatient SHANI HUTCHINSON MD [facility] [id number] 03/22/2018 08:17:00 019 23:59:59 CLS Outpatient SHANI HUTCHINSON MD [facility] [id number] 03/16/2018 08:13:00 019 23:59:59 CLS Outpatient MARY PERSAUD APRN [facility] [id number] 03/11/2018 08:21:00 019 23:59:59 CLS Outpatient MARY PERSAUD APRN [facility] [id number] 03/04/2018 09:51:00 018 23:59:59 CLS Outpatient MARY PERSAUD APRN [facility] [id number] 03/01/2018 07:01:00 018 09:40:00 DIS Outpatient PEDRO HINSON DO [facility] ENDO ANEMIA [id number] 02/25/2018 08:13:00 018 23:59:59 CLS Outpatient ZAIRE WESTFALL MD [facility] [id number] 02/24/2018 05:37:00 15:09:00 DIS Outpatient PEDRO HINSON DO [facility] PREOP COLONOSCOPY/EGD [id number] 02/23/2018 08:12:00 23:59:59 CLS Outpatient MARY PERSAUD APRN [facility] [id number] 02/18/2018 08:14:00 23:59:59 CLS Outpatient ZAIRE WESTFALL MD [facility] [id number] 02/16/2018 08:12:00 23:59:59 CLS Outpatient MARY PERSAUD APRN [facility] [id number] 02/09/2018 08:20:00 23:59:59 CLS Outpatient MARY PERSAUD APRN [facility] [id number] 01/26/2018 08:17:00 23:59:59 CLS Outpatient MARY PERSAUD APRN [facility] [id number] 01/19/2018 08:16:00 23:59:59 CLS Outpatient MARY PERSAUD APRN [facility] [id number] 01/12/2018 08:13:00 23:59:59 CLS Outpatient MARY PERSAUD APRN [facility] [id number] 01/08/2018 11:09:00 23:59:59 CLS Outpatient SHANI HUTCHINSON MD [facility] [id number] 01/01/2018 09:49:00 23:59:59 CLS Outpatient MARY PERSAUD APRN [facility] [id number] 12/22/2017 17:13:00 23:59:59 CLS Outpatient SHANI HUTCHINSON MD [facility] LAB NON PRESSURE CHRONIC UL CER [id number] 12/21/2017 17:07:00 23:59:59 CLS Outpatient SHANI HUTCHINSON MD [facility] RAD NON-PRESSURE CHRONIC UL CER OF LEFT CALF [id number] 12/21/2017 14:07:00 018 23:59:59 CLS Outpatient SHANI HUTCHINSON MD [facility] [id number] 12/15/2017 08:56:00 23:59:59 CLS Outpatient MARY PERSAUD APRN [facility] [id number] 05/19/2016 16:00:00 017 23:59:59 CLS Preadmit SHANI HUTCHINSON MD [facility] [id number] 12/06/2015 07:55:00 016 23:59:59 CLS Preadmit ANGELITATARSHA [facility] ONC [id number] 02/23/2014 14:49:00 014 23:59:59 CLS Outpatient KARIN TOLBERT MD [facility] RAD PAINFUL AREA OF HEEL A ND M-P JOINT [id number] 07/05/2013 10:07:00 014 23:59:59 CLS Outpatient KARIN TOLBERT MD [facility] RAD LOW BACK PAIN [id number] 07/27/2019 18:38:[address] Emergency NAS DO, MONSTER K [facility] ER NECK PAIN,FALL [id number] 07/25/2019 08:46:[address] Outpatient SHANI HUTCHINSON MD [facility] [id number] 11/28/2009 00:00:00 Document Registration [id number] 10/25/2009 09:39:00 Document Registration [id number] 10/04/2009 08:30:00 Document Registration [id number] 08/28/2009 09:15:00 Document Registration [id number] 10/19/2008 07:23:00 Document Registration
[2019-07-27 21:02] LABS: BILIRUBIN,URINE NEGATIVE (NEGATIVE); CLARITY,URINE CLEAR; COLOR,URINE YELLOW; GLUCOSE, URINE (UA) NEGATIVE (NEGATIVE); KETONES,URINE NEGATIVE (NEGATIVE); LEUKOCYTE ESTERASE ,URINE NEGATIVE (NEGATIVE); NITRITE,URINE NEGATIVE (NEGATIVE); PH,URINE 5.5 (5-9); PROTEIN,URINE NEGATIVE (NEGATIVE)
[2019-07-27 21:12] LABS: BACTERIA,URINE TRACE /HPF; RBC,URINE 0-2 /HPF
--- NOTE | 2019-07-27 21:12 | Diagnostic Imaging Report ---
EXAMINATION: Supine chest at 07:43 p.m. INDICATION: Injury, chest pain. FINDINGS: There are no prior studies available for comparison. The heart size is at the upper limits of normal. The lungs are clear. There is no evidence for failure, pneumonia, or for a pleural effusion. There is no sign of a pulmonary contusion or of a pneumothorax; however, a small pneumothorax could be present yet undetected on a supine film such as this. The mediastinum is not widened. There are several healed rib fractures on the right. There is no acute bony abnormality noted. IMPRESSION: There is no evidence for an acute cardiopulmonary abnormality. Dictated by: Dictated on workstation # [id number]
--- NOTE | 2019-07-27 21:12 | Diagnostic Imaging Report ---
PROCEDURE: CT head, face, and cervical spine without contrast. TECHNIQUE: Multiple contiguous axial images were obtained through the head, neck, and facial bones without the use of intravenous contrast. Sagittal and coronal reformations through the cervical spine and facial bones were also performed. Auto Exposure Controls were utilized during the CT exam to meet ALARA standards for radiation dose reduction. INDICATION: Fall. COMPARISON: No comparison available. FINDINGS: There are no CT findings of an acute intracranial abnormality. There is no evidence of intracranial hemorrhage. There is no mass effect or shift. There is no hydrocephalus. There is no abnormal extra-axial fluid collection demonstrated. The basilar cisterns appear patent. There are no findings of loss of seals-white differentiation. There is no abnormal low density within the basal ganglia or within the caitlyn. The mastoid air cells are clear. There are no findings of a calvarial fracture. The CT of the face demonstrates intact bony orbit. The intraorbital contents are unremarkable. There is no evidence of a nasal bone fracture. No fracture demonstrated of the maxilla. The pterygoid plates are unremarkable. Zygomatic arch is intact. There is no TMJ dislocation or evidence of mandibular fracture. Cervical spine demonstrates normal alignment. There is normal alignment of the craniocervical junction. There are normal relationships of the lateral masses of C1 and C2. The facets are normally aligned. There is no facet joint or disc space widening. The vertebral body heights are maintained. No acute cervical spine fracture is demonstrated. There are no findings of high-grade canal stenosis. Lung apices are clear. The soft tissues of the neck demonstrate no acute process. IMPRESSION: 1. No CT evidence of an acute intracranial abnormality. 2. No evidence of calvarial or facial fracture. 3. No CT evidence of an acute cervical spine fracture or traumatic malalignment. There are no findings to suggest high-grade cervical canal stenosis. Dictated by: Dictated on workstation # [id number]
--- NOTE | 2019-07-27 21:12 | Diagnostic Imaging Report ---
PROCEDURE: CT thoracic and lumbar spine without contrast. TECHNIQUE: Multiple contiguous axial images were obtained through the thoracic and lumbar spine without the use of intravenous contrast. Sagittal and coronal reformations were then performed.All CT scans use one or more of the following dose optimizing techniques: automated exposure control, MA and/or KvP adjustment based on a patient size and exam type, or iterative reconstruction. INDICATION: Fell, back pain There are no prior CT thoracic or lumbar spine examinations available for comparison. The MRI lumbar spine exam of 07/05/13 failed to show any sign of an acute bony abnormality. The reconstructed parasagittal images of this exam show the lumbar vertebral body heights and alignment to be similar to the prior exam. The intervertebral disc spaces are still fairly well maintained. There is a slight compression deformity of the superior endplate of T11. This injury may well be chronic in nature. The possibility that there is an acute fracture should still be considered. MRI would be recommended for further evaluation. There is no other fracture or acute bony abnormality of the thoracic or lumbar spine. There is a disc bulge centrally at the L4-L5 level. There is no high-grade central stenosis identified, however. The remainder of the lumbar and thoracic spine are unremarkable for spinal stenosis or nerve root encroachment. There is no sign of a paraspinal mass. However, there are several nonobstructive calculi within both kidneys. The lungs, where visualized, are clear. The form setter metal road forms film does show marked distention of the stomach by gas. IMPRESSION: 1. There is a mild compression deformity of superior endplate of T11. The age of this injury is indeterminate and could be acute or subacute in nature. MRI would be recommended for further study. 2. There is no acute bony abnormality noted otherwise. 3. There is no evidence for a high-grade central stenosis. These results were discussed with Dr. Sandy Lopez at the time of dictation. Dictated by: Dictated on workstation # [id number]
--- NOTE | 2019-07-27 21:12 | Diagnostic Imaging Report ---
EXAMINATION: Left elbow series INDICATION: Fall. FINDINGS: AP alignment of the elbow appears appropriate. The lateral view is not a true lateral which limits assessment of the anterior humeral line. Assessment of the fat pad or fat pad elevation cannot be performed. There are no findings on the provided views of cortical disruption or fracture. IMPRESSION: 1. No findings of elbow malalignment or acute fracture though evaluation is suboptimal given an oblique view of the elbow on the lateral view. Assessment for fat pad elevation cannot be performed. Dictated by: Dictated on workstation # [id number]
--- NOTE | 2019-07-27 21:12 | Diagnostic Imaging Report ---
INDICATION: Fall. FINDINGS: There is a shortened appearance of the 5th metacarpal but this appears to reflect a remote healed fracture. No acute hand fracture evident. There are no findings of malalignment or joint dislocation. There are mild osteoarthritic changes of the 1st carpometacarpal joint within the 1st metacarpophalangeal joint and within the interphalangeal joints of the fingers. A tiny radiodensity at the base of the proximal phalanx of the 3rd digit most likely reflects a small soft tissue calcification. Correlate for any point tenderness at that location. IMPRESSION: 1. Remote healed 5th metacarpal fracture 2. Mild background osteoarthritic changes 3. No acute fracture, traumatic malalignment or joint dislocation. 4. Tiny density at the base of the 3rd proximal phalanx likely reflects a soft tissue calcification. Correlate for any point tenderness at that location. Dictated by: Dictated on workstation # [id number]
--- NOTE | 2019-07-27 21:12 | Diagnostic Imaging Report ---
EXAMINATION: Pelvis at 7:38 PM INDICATION: Fell, pelvic pain Single AP view of the pelvis is obtained. There are no prior pelvic exams available for comparison. There is no fracture, dislocation or acute bony abnormality evident. There is only mild degenerative disease of the hip and sacroiliac joints. The soft tissues are unremarkable for an acute abnormality. Surgical clips are seen overlying each groin. IMPRESSION: There is no evidence for an acute bony abnormality. Dictated by: Dictated on workstation # [id number]
--- NOTE | 2019-07-27 21:12 | Diagnostic Imaging Report ---
INDICATION: Fall. FINDINGS: These 2 views of the left forearm demonstrate no evidence of cortical disruption of the radius or ulna or findings of acute fracture. Alignment at the wrist unremarkable. Elbow alignment grossly unremarkable. No focal soft tissue abnormality. IMPRESSION: 1. No evidence of left radial or ulnar fracture or malalignment. Dictated by: Dictated on workstation # [id number]
[2019-07-27 21:15] LABS: AMPHETAMINE SCREEN, URINE NEGATIVE (NEGATIVE); BARBITURATE SCREEN URINE NEGATIVE (NEGATIVE); BENZODIAZEPINES SCREEN URINE NEGATIVE (NEGATIVE); CANNABINOID SCREEN, URINE NEGATIVE (NEGATIVE); COCAINE SCREEN URINE NEGATIVE (NEGATIVE); METHADONE STAT POSITIVE (NEGATIVE); METHAMPHETAMINE SCREEN URINE S NEGATIVE (NEGATIVE); OPIATE SCREEN URINE NEGATIVE (NEGATIVE); OXYCODONE STAT POSITIVE (NEGATIVE); PROPOXYPHENE STAT NEGATIVE (NEGATIVE); TRICYCLIC ANTIDEPRESSANTS SCRE NEGATIVE (NEGATIVE)
--- NOTE | 2019-07-27 21:25 | NUR ---
C COLLAR OFF BY DR. LOVELL AT THIS TIME.
[2019-07-27 22:08] VITALS: BP 132/71
== END 2019-07-27 22:08 | disposition home or self-care (01) ==
LOC: EDUNIT# 18:37 → ER 18:38
DX: S09.90XA Unspecified injury of head, initial encounter (principal); S16.1XXA Strain of muscle, fascia and tendon at neck level, initial encounter; S60.221A Contusion of right hand, initial encounter; S00.81XA Abrasion of other part of head, initial encounter; S50.812A Abrasion of left forearm, initial encounter; S50.312A Abrasion of left elbow, initial encounter; D64.9 Anemia, unspecified; G89.29 Other chronic pain; M54.9 Dorsalgia, unspecified; F11.90 Opioid use, unspecified, uncomplicated; L97.919 Non-pressure chronic ulcer of unspecified part of right lower leg with unspecified severity; L97.929 Non-pressure chronic ulcer of unspecified part of left lower leg with unspecified severity; L97.519 Non-pressure chronic ulcer of other part of right foot with unspecified severity; L97.529 Non-pressure chronic ulcer of other part of left foot with unspecified severity; K21.9 Gastro-esophageal reflux disease without esophagitis; R40.2142 Coma scale, eyes open, spontaneous, at arrival to emergency department; R40.2252 Coma scale, best verbal response, oriented, at arrival to emergency department; R40.2362 Coma scale, best motor response, obeys commands, at arrival to emergency department; Z86.718 Personal history of other venous thrombosis and embolism; Z88.1 Allergy status to other antibiotic agents; Z88.5 Allergy status to narcotic agent; Z23 Encounter for immunization; Z79.01 Long term (current) use of anticoagulants; W01.198A Fall on same level from slipping, tripping and stumbling with subsequent striking against other object, initial encounter; Y92.015 Private garage of single-family (private) house as the place of occurrence of the external cause
CPT/HCPCS: 36415; 70450; 70486; 71045; 72125; 72128; 72131; 72170; 73080; 73090; 73130; 80053; 80306; 80320; 81000; 83735; 85025; 85610; 85730; 90715; 93041

== ENCOUNTER → 2019-08-02 | Outpatient (CLI) | payer BC | LOC: WOUNDCARE 09:04 | PROVIDERS: ATTEND Surgery | DX: L97.222 Non-pressure chronic ulcer of left calf with fat layer exposed (principal); L97.212 Non-pressure chronic ulcer of right calf with fat layer exposed; L97.312 Non-pressure chronic ulcer of right ankle with fat layer exposed; L97.522 Non-pressure chronic ulcer of other part of left foot with fat layer exposed; I87.313 Chronic venous hypertension (idiopathic) with ulcer of bilateral lower extremity; D68.51 Activated protein C resistance; I82.503 Chronic embolism and thrombosis of unspecified deep veins of lower extremity, bilateral; I89.0 Lymphedema, not elsewhere classified; B95.62 Methicillin resistant Staphylococcus aureus infection as the cause of diseases classified elsewhere; B96.5 Pseudomonas (aeruginosa) (mallei) (pseudomallei) as the cause of diseases classified elsewhere; D64.9 Anemia, unspecified; Z79.01 Long term (current) use of anticoagulants | CPT/HCPCS: 11042; 11045; 87070; 87205 ==

== ENCOUNTER → 2019-08-08 | Outpatient (CLI) | payer BC | LOC: WOUNDCARE 08:49 | PROVIDERS: ATTEND Surgery | DX: I96 Gangrene, not elsewhere classified (principal); L97.222 Non-pressure chronic ulcer of left calf with fat layer exposed; L97.212 Non-pressure chronic ulcer of right calf with fat layer exposed; L97.312 Non-pressure chronic ulcer of right ankle with fat layer exposed; L97.522 Non-pressure chronic ulcer of other part of left foot with fat layer exposed; I87.333 Chronic venous hypertension (idiopathic) with ulcer and inflammation of bilateral lower extremity; I82.503 Chronic embolism and thrombosis of unspecified deep veins of lower extremity, bilateral; I89.0 Lymphedema, not elsewhere classified; B96.5 Pseudomonas (aeruginosa) (mallei) (pseudomallei) as the cause of diseases classified elsewhere; B95.62 Methicillin resistant Staphylococcus aureus infection as the cause of diseases classified elsewhere; D64.9 Anemia, unspecified; D68.51 Activated protein C resistance | CPT/HCPCS: 11042; 11045 ==

== ENCOUNTER → 2019-08-15 | Outpatient (CLI) | payer BC | LOC: WOUNDCARE 08:18 | PROVIDERS: ATTEND Surgery | DX: I96 Gangrene, not elsewhere classified (principal); L97.222 Non-pressure chronic ulcer of left calf with fat layer exposed; L97.312 Non-pressure chronic ulcer of right ankle with fat layer exposed; L97.522 Non-pressure chronic ulcer of other part of left foot with fat layer exposed; I87.333 Chronic venous hypertension (idiopathic) with ulcer and inflammation of bilateral lower extremity; I82.503 Chronic embolism and thrombosis of unspecified deep veins of lower extremity, bilateral; I89.0 Lymphedema, not elsewhere classified; B95.62 Methicillin resistant Staphylococcus aureus infection as the cause of diseases classified elsewhere; B96.5 Pseudomonas (aeruginosa) (mallei) (pseudomallei) as the cause of diseases classified elsewhere; D64.9 Anemia, unspecified; D68.51 Activated protein C resistance | CPT/HCPCS: 11042; 11045 ==

== ENCOUNTER → 2019-08-22 | Outpatient (CLI) | payer BC | LOC: WOUNDCARE 13:37 | PROVIDERS: ATTEND Surgery | DX: L97.222 Non-pressure chronic ulcer of left calf with fat layer exposed (principal); L97.522 Non-pressure chronic ulcer of other part of left foot with fat layer exposed; L97.312 Non-pressure chronic ulcer of right ankle with fat layer exposed; I87.333 Chronic venous hypertension (idiopathic) with ulcer and inflammation of bilateral lower extremity; I82.503 Chronic embolism and thrombosis of unspecified deep veins of lower extremity, bilateral; I89.0 Lymphedema, not elsewhere classified; B95.62 Methicillin resistant Staphylococcus aureus infection as the cause of diseases classified elsewhere; B96.5 Pseudomonas (aeruginosa) (mallei) (pseudomallei) as the cause of diseases classified elsewhere; D64.9 Anemia, unspecified; D68.51 Activated protein C resistance | CPT/HCPCS: 11042; 11045 ==

== ENCOUNTER → 2019-08-29 | Outpatient (CLI) | payer BC | LOC: LAB 09:44 | PROVIDERS: ATTEND Surgery | DX: L97.222 Non-pressure chronic ulcer of left calf with fat layer exposed (principal); L97.312 Non-pressure chronic ulcer of right ankle with fat layer exposed; I87.333 Chronic venous hypertension (idiopathic) with ulcer and inflammation of bilateral lower extremity; D68.51 Activated protein C resistance; L97.522 Non-pressure chronic ulcer of other part of left foot with fat layer exposed; I82.503 Chronic embolism and thrombosis of unspecified deep veins of lower extremity, bilateral; I89.0 Lymphedema, not elsewhere classified; B95.62 Methicillin resistant Staphylococcus aureus infection as the cause of diseases classified elsewhere; B96.5 Pseudomonas (aeruginosa) (mallei) (pseudomallei) as the cause of diseases classified elsewhere | CPT/HCPCS: 36415; 84134 ==

== ENCOUNTER → 2019-08-29 | Outpatient (CLI) | payer BC | LOC: WOUNDCARE 08:14 | PROVIDERS: ATTEND Surgery | DX: I96 Gangrene, not elsewhere classified (principal); I87.333 Chronic venous hypertension (idiopathic) with ulcer and inflammation of bilateral lower extremity; L97.222 Non-pressure chronic ulcer of left calf with fat layer exposed; L97.312 Non-pressure chronic ulcer of right ankle with fat layer exposed; L97.522 Non-pressure chronic ulcer of other part of left foot with fat layer exposed; D68.51 Activated protein C resistance; I82.503 Chronic embolism and thrombosis of unspecified deep veins of lower extremity, bilateral; I89.0 Lymphedema, not elsewhere classified; B96.5 Pseudomonas (aeruginosa) (mallei) (pseudomallei) as the cause of diseases classified elsewhere; B95.62 Methicillin resistant Staphylococcus aureus infection as the cause of diseases classified elsewhere | CPT/HCPCS: 11042; 11045 ==

== ENCOUNTER → 2019-09-05 | Outpatient (CLI) | payer BC | LOC: WOUNDCARE 08:47 | PROVIDERS: ATTEND Surgery | DX: L97.222 Non-pressure chronic ulcer of left calf with fat layer exposed (principal); L97.312 Non-pressure chronic ulcer of right ankle with fat layer exposed; I87.333 Chronic venous hypertension (idiopathic) with ulcer and inflammation of bilateral lower extremity; D68.51 Activated protein C resistance; L97.522 Non-pressure chronic ulcer of other part of left foot with fat layer exposed; I89.0 Lymphedema, not elsewhere classified; B95.62 Methicillin resistant Staphylococcus aureus infection as the cause of diseases classified elsewhere; B96.5 Pseudomonas (aeruginosa) (mallei) (pseudomallei) as the cause of diseases classified elsewhere; I82.503 Chronic embolism and thrombosis of unspecified deep veins of lower extremity, bilateral; I96 Gangrene, not elsewhere classified | CPT/HCPCS: 11042; 11045 ==

== ENCOUNTER → 2019-09-12 | Outpatient (CLI) | payer BC | LOC: WOUNDCARE 08:50 | PROVIDERS: ATTEND Surgery | DX: I96 Gangrene, not elsewhere classified (principal); I87.333 Chronic venous hypertension (idiopathic) with ulcer and inflammation of bilateral lower extremity; L97.222 Non-pressure chronic ulcer of left calf with fat layer exposed; L97.312 Non-pressure chronic ulcer of right ankle with fat layer exposed; L97.522 Non-pressure chronic ulcer of other part of left foot with fat layer exposed; D68.51 Activated protein C resistance; I82.503 Chronic embolism and thrombosis of unspecified deep veins of lower extremity, bilateral; I89.0 Lymphedema, not elsewhere classified; B95.62 Methicillin resistant Staphylococcus aureus infection as the cause of diseases classified elsewhere; B96.5 Pseudomonas (aeruginosa) (mallei) (pseudomallei) as the cause of diseases classified elsewhere | CPT/HCPCS: 11042; 11045 ==

== ENCOUNTER 2019-09-19 10:15 | Outpatient (RCR) | payer BC ==
[2019-08-29 09:58] LABS: BASOPHILS % (AUTO) 0 % (0-10); EOSINOPHILS # (AUTO) 0.1 10^3/uL (0.0-0.3); EOSINOPHILS % (AUTO) 3 % (0-10); HEMATOCRIT 33 % (40-54); HEMOGLOBIN 10.3 G/DL (13.3-17.7); LYMPHOCYTES % (AUTO) 25 % (12-44); MEAN CORPUSCULAR HEMOGLOBIN 27 PG (25-34); MEAN CORPUSCULAR HGB CONC 31 G/DL (32-36); MEAN CORPUSCULAR VOLUME 86 FL (80-99); MEAN PLATELET VOLUME 9.1 FL (7.4-10.4); MONOCYTES # (AUTO) 0.2 X 10^3 (0.0-1.0); MONOCYTES % (AUTO) 6 % (0-12); NEUTROPHILS # (AUTO) 2.6 X 10^3 (1.8-7.8); NEUTROPHILS % (AUTO) 66 % (42-75); PLATELET COUNT 166 10^3/uL (130-400); RED CELL DISTRIBUTION WIDTH 19.8 % (10.0-14.5); WHITE BLOOD COUNT 3.9 10^3/uL (4.3-11.0)
[2019-08-29 10:15] LABS: ALANINE AMINOTRANSFERASE 11 U/L (0-55); ALBUMIN 3.7 GM/DL (3.2-4.5); ALKALINE PHOSPHATASE 73 U/L (40-136); BILIRUBIN,TOTAL 0.2 MG/DL (0.1-1.0); BUN/CREATININE RATIO 16; CALCIUM 8.6 MG/DL (8.5-10.1); CARBON DIOXIDE 23 MMOL/L (21-32); CHLORIDE 106 MMOL/L (98-107); CREATININE SERUM 1.21 MG/DL (0.60-1.30); GFR ESTIMATED > 60; GLUCOSE 80 MG/DL (70-105); POTASSIUM 4.3 MMOL/L (3.6-5.0); SODIUM 136 MMOL/L (135-145); TOTAL PROTEIN 6.9 GM/DL (6.4-8.2)
[2019-09-19 10:29] LABS: BASOPHILS % (AUTO) 0 % (0-10); EOSINOPHILS # (AUTO) 0.1 10^3/uL (0.0-0.3); EOSINOPHILS % (AUTO) 2 % (0-10); HEMATOCRIT 35 % (40-54); HEMOGLOBIN 10.7 G/DL (13.3-17.7); LYMPHOCYTES # (AUTO) 1.3 X 10^3 (1.0-4.0); LYMPHOCYTES % (AUTO) 26 % (12-44); MEAN CORPUSCULAR HEMOGLOBIN 26 PG (25-34); MEAN CORPUSCULAR HGB CONC 31 G/DL (32-36); MEAN CORPUSCULAR VOLUME 84 FL (80-99); MEAN PLATELET VOLUME 9.5 FL (7.4-10.4); MONOCYTES # (AUTO) 0.6 X 10^3 (0.0-1.0); MONOCYTES % (AUTO) 11 % (0-12); NEUTROPHILS # (AUTO) 3.1 X 10^3 (1.8-7.8); NEUTROPHILS % (AUTO) 60 % (42-75); PLATELET COUNT 253 10^3/uL (130-400); RED CELL DISTRIBUTION WIDTH 16.6 % (10.0-14.5); WHITE BLOOD COUNT 5.1 10^3/uL (4.3-11.0)
== END 2019-10-02 | disposition home or self-care (01) ==
LOC: ONC 10:15
PROVIDERS: ATTEND Internal Medicine Hematology & Oncology
DX: D68.51 Activated protein C resistance (principal); D50.0 Iron deficiency anemia secondary to blood loss (chronic); I82.503 Chronic embolism and thrombosis of unspecified deep veins of lower extremity, bilateral; K29.70 Gastritis, unspecified, without bleeding; E66.01 Morbid (severe) obesity due to excess calories; Z68.39 Body mass index [BMI] 39.0-39.9, adult; Z79.01 Long term (current) use of anticoagulants; Z79.82 Long term (current) use of aspirin; Z79.899 Other long term (current) drug therapy
CPT/HCPCS: 80053; 82728; 83540; 85025; 99213

== ENCOUNTER → 2019-09-19 | Outpatient (CLI) | payer BC | LOC: WOUNDCARE 08:21 | PROVIDERS: ATTEND Surgery | DX: L97.222 Non-pressure chronic ulcer of left calf with fat layer exposed (principal); I87.332 Chronic venous hypertension (idiopathic) with ulcer and inflammation of left lower extremity; D68.51 Activated protein C resistance; I82.503 Chronic embolism and thrombosis of unspecified deep veins of lower extremity, bilateral; L97.522 Non-pressure chronic ulcer of other part of left foot with fat layer exposed; B95.62 Methicillin resistant Staphylococcus aureus infection as the cause of diseases classified elsewhere; B96.5 Pseudomonas (aeruginosa) (mallei) (pseudomallei) as the cause of diseases classified elsewhere; I96 Gangrene, not elsewhere classified | CPT/HCPCS: 11042; 11045 ==

== ENCOUNTER → 2019-09-26 | Outpatient (CLI) | payer BC | LOC: WOUNDCARE 08:46 | PROVIDERS: ATTEND Surgery | DX: L97.222 Non-pressure chronic ulcer of left calf with fat layer exposed (principal); I87.332 Chronic venous hypertension (idiopathic) with ulcer and inflammation of left lower extremity; D68.51 Activated protein C resistance; I82.503 Chronic embolism and thrombosis of unspecified deep veins of lower extremity, bilateral; L97.522 Non-pressure chronic ulcer of other part of left foot with fat layer exposed; B95.62 Methicillin resistant Staphylococcus aureus infection as the cause of diseases classified elsewhere; B96.5 Pseudomonas (aeruginosa) (mallei) (pseudomallei) as the cause of diseases classified elsewhere; I96 Gangrene, not elsewhere classified | CPT/HCPCS: 11042; 11045 ==

== ENCOUNTER → 2019-10-03 | Outpatient (CLI) | payer BC | LOC: WOUNDCARE 08:21 | PROVIDERS: ATTEND Surgery | DX: L97.222 Non-pressure chronic ulcer of left calf with fat layer exposed (principal); I87.332 Chronic venous hypertension (idiopathic) with ulcer and inflammation of left lower extremity; D68.51 Activated protein C resistance; I82.503 Chronic embolism and thrombosis of unspecified deep veins of lower extremity, bilateral; L97.522 Non-pressure chronic ulcer of other part of left foot with fat layer exposed; B95.62 Methicillin resistant Staphylococcus aureus infection as the cause of diseases classified elsewhere; B96.5 Pseudomonas (aeruginosa) (mallei) (pseudomallei) as the cause of diseases classified elsewhere; I96 Gangrene, not elsewhere classified | CPT/HCPCS: 11042; 11045; G0463 ==

== ENCOUNTER → 2019-10-10 | Outpatient (CLI) | payer BC | LOC: WOUNDCARE 08:20 | PROVIDERS: ATTEND Surgery | DX: I87.332 Chronic venous hypertension (idiopathic) with ulcer and inflammation of left lower extremity (principal); L97.222 Non-pressure chronic ulcer of left calf with fat layer exposed; D68.51 Activated protein C resistance; I82.503 Chronic embolism and thrombosis of unspecified deep veins of lower extremity, bilateral; L97.522 Non-pressure chronic ulcer of other part of left foot with fat layer exposed; I89.0 Lymphedema, not elsewhere classified; B95.62 Methicillin resistant Staphylococcus aureus infection as the cause of diseases classified elsewhere; B96.5 Pseudomonas (aeruginosa) (mallei) (pseudomallei) as the cause of diseases classified elsewhere; M17.9 Osteoarthritis of knee, unspecified | CPT/HCPCS: 11042; 11045; G0463 ==

== ENCOUNTER → 2019-10-17 | Outpatient (CLI) | payer BC | LOC: WOUNDCARE 08:23 | PROVIDERS: ATTEND Surgery | DX: L97.222 Non-pressure chronic ulcer of left calf with fat layer exposed (principal); I87.332 Chronic venous hypertension (idiopathic) with ulcer and inflammation of left lower extremity; D68.51 Activated protein C resistance; I82.509 Chronic embolism and thrombosis of unspecified deep veins of unspecified lower extremity; L97.522 Non-pressure chronic ulcer of other part of left foot with fat layer exposed; I89.0 Lymphedema, not elsewhere classified; B95.62 Methicillin resistant Staphylococcus aureus infection as the cause of diseases classified elsewhere; B96.5 Pseudomonas (aeruginosa) (mallei) (pseudomallei) as the cause of diseases classified elsewhere; I96 Gangrene, not elsewhere classified | CPT/HCPCS: 11042; 11045; G0463 ==

== ENCOUNTER → 2019-10-24 | Outpatient (CLI) | payer BC | LOC: WOUNDCARE 08:50 | PROVIDERS: ATTEND Surgery | DX: I96 Gangrene, not elsewhere classified (principal); I87.332 Chronic venous hypertension (idiopathic) with ulcer and inflammation of left lower extremity; L97.222 Non-pressure chronic ulcer of left calf with fat layer exposed; L97.522 Non-pressure chronic ulcer of other part of left foot with fat layer exposed; D68.51 Activated protein C resistance; I82.503 Chronic embolism and thrombosis of unspecified deep veins of lower extremity, bilateral; I89.0 Lymphedema, not elsewhere classified; B95.62 Methicillin resistant Staphylococcus aureus infection as the cause of diseases classified elsewhere; B96.5 Pseudomonas (aeruginosa) (mallei) (pseudomallei) as the cause of diseases classified elsewhere | CPT/HCPCS: 11042; G0463 ==

== ENCOUNTER → 2019-10-27 | Outpatient (CLI) | payer BC | LOC: WOUNDCARE 09:33 | PROVIDERS: ATTEND Surgery | DX: I87.312 Chronic venous hypertension (idiopathic) with ulcer of left lower extremity (principal); I89.0 Lymphedema, not elsewhere classified | CPT/HCPCS: 29581; A6253; G0463; 99213 ==

== ENCOUNTER → 2019-10-31 | Outpatient (CLI) | payer BC | LOC: WOUNDCARE 08:39 | PROVIDERS: ATTEND Surgery | DX: L97.222 Non-pressure chronic ulcer of left calf with fat layer exposed (principal); I87.332 Chronic venous hypertension (idiopathic) with ulcer and inflammation of left lower extremity; D68.51 Activated protein C resistance; L97.522 Non-pressure chronic ulcer of other part of left foot with fat layer exposed; I82.503 Chronic embolism and thrombosis of unspecified deep veins of lower extremity, bilateral; I89.0 Lymphedema, not elsewhere classified; I96 Gangrene, not elsewhere classified | CPT/HCPCS: 11042; 15273; 15274; A6253; G0463 ==

== ENCOUNTER → 2019-11-03 | Outpatient (CLI) | payer BC | LOC: WOUNDCARE 08:18 | PROVIDERS: ATTEND Surgery | DX: L97.222 Non-pressure chronic ulcer of left calf with fat layer exposed (principal); D64.9 Anemia, unspecified; I82.409 Acute embolism and thrombosis of unspecified deep veins of unspecified lower extremity; I73.9 Peripheral vascular disease, unspecified; M19.90 Unspecified osteoarthritis, unspecified site | CPT/HCPCS: 29581; A6253; G0463 ==

== ENCOUNTER → 2019-11-08 | Outpatient (CLI) | payer BC | LOC: WOUNDCARE 08:42 | PROVIDERS: ATTEND Surgery | DX: L97.222 Non-pressure chronic ulcer of left calf with fat layer exposed (principal); I87.332 Chronic venous hypertension (idiopathic) with ulcer and inflammation of left lower extremity; D68.51 Activated protein C resistance; I82.503 Chronic embolism and thrombosis of unspecified deep veins of lower extremity, bilateral; L97.522 Non-pressure chronic ulcer of other part of left foot with fat layer exposed; I89.0 Lymphedema, not elsewhere classified; I96 Gangrene, not elsewhere classified | CPT/HCPCS: 11042; 15273; 15274 ==

== ENCOUNTER → 2019-11-11 | Outpatient (CLI) | payer BC ==
[~2019-11-11] MED LIST changes: -OXYC-465 PO; +OXYC-556 PO
== END ==
LOC: WOUNDCARE 08:15
PROVIDERS: ATTEND Surgery
DX: I87.312 Chronic venous hypertension (idiopathic) with ulcer of left lower extremity (principal); I89.0 Lymphedema, not elsewhere classified
CPT/HCPCS: 29581; A6253; G0463

== ENCOUNTER → 2019-11-15 | Outpatient (CLI) | payer BC | LOC: WOUNDCARE 08:43 | PROVIDERS: ATTEND Surgery | DX: L97.222 Non-pressure chronic ulcer of left calf with fat layer exposed (principal); I87.332 Chronic venous hypertension (idiopathic) with ulcer and inflammation of left lower extremity; D68.51 Activated protein C resistance; L97.522 Non-pressure chronic ulcer of other part of left foot with fat layer exposed; I82.503 Chronic embolism and thrombosis of unspecified deep veins of lower extremity, bilateral; I89.0 Lymphedema, not elsewhere classified | CPT/HCPCS: 11042; 15273; 15274; A6253; G0463 ==

== ENCOUNTER → 2019-11-18 | Outpatient (CLI) | payer BC ==
[~2019-11-18] MED LIST changes: -PANT40TA3 PO; +PANT40TA52 PO
== END ==
LOC: WOUNDCARE 08:18
PROVIDERS: ATTEND Surgery
DX: I96 Gangrene, not elsewhere classified (principal); L97.222 Non-pressure chronic ulcer of left calf with fat layer exposed; I89.0 Lymphedema, not elsewhere classified; D64.9 Anemia, unspecified; I82.409 Acute embolism and thrombosis of unspecified deep veins of unspecified lower extremity; M19.90 Unspecified osteoarthritis, unspecified site
CPT/HCPCS: 29581; A6253; G0463

== ENCOUNTER → 2019-11-21 | Outpatient (CLI) | payer BC ==
[~2019-11-21] MED LIST changes: +PANT40TA3 PO; -PANT40TA52 PO
== END ==
LOC: WOUNDCARE 08:42
PROVIDERS: ATTEND Surgery
DX: L97.222 Non-pressure chronic ulcer of left calf with fat layer exposed (principal); I87.332 Chronic venous hypertension (idiopathic) with ulcer and inflammation of left lower extremity; D68.51 Activated protein C resistance; I82.503 Chronic embolism and thrombosis of unspecified deep veins of lower extremity, bilateral; L97.522 Non-pressure chronic ulcer of other part of left foot with fat layer exposed; I89.0 Lymphedema, not elsewhere classified; I96 Gangrene, not elsewhere classified
CPT/HCPCS: 11042; 15273; 15274; A6253; G0463

== ENCOUNTER → 2019-11-24 | Outpatient (CLI) | payer BC ==
[~2019-11-24] MED LIST changes: -PANT40TA3 PO; +PANT40TA52 PO
== END ==
LOC: WOUNDCARE 08:25
PROVIDERS: ATTEND Surgery
DX: S91.109A Unspecified open wound of unspecified toe(s) without damage to nail, initial encounter (principal); L97.228 Non-pressure chronic ulcer of left calf with other specified severity; I89.0 Lymphedema, not elsewhere classified
CPT/HCPCS: 29581; A6253; G0463

== ENCOUNTER → 2019-11-28 | Outpatient (CLI) | payer BC | LOC: WOUNDCARE 08:37 | PROVIDERS: ATTEND Surgery | DX: L97.222 Non-pressure chronic ulcer of left calf with fat layer exposed (principal); I87.332 Chronic venous hypertension (idiopathic) with ulcer and inflammation of left lower extremity; D68.51 Activated protein C resistance; L97.522 Non-pressure chronic ulcer of other part of left foot with fat layer exposed; I89.0 Lymphedema, not elsewhere classified; I96 Gangrene, not elsewhere classified; I82.503 Chronic embolism and thrombosis of unspecified deep veins of lower extremity, bilateral | CPT/HCPCS: 11042; 15273; 15274; A6253; G0463 ==

== ENCOUNTER → 2019-12-01 | Outpatient (CLI) | payer BC | LOC: WOUNDCARE 08:18 | PROVIDERS: ATTEND Surgery | DX: L97.222 Non-pressure chronic ulcer of left calf with fat layer exposed (principal); I89.0 Lymphedema, not elsewhere classified | CPT/HCPCS: 29581; A6253; G0463 ==

== ENCOUNTER 2019-12-05 10:06 | Outpatient (RCR) | payer BC ==
[2019-10-03 09:48] LABS: BASOPHILS % (AUTO) 0 % (0-10); EOSINOPHILS # (AUTO) 0.2 10^3/uL (0.0-0.3); EOSINOPHILS % (AUTO) 5 % (0-10); HEMATOCRIT 35 % (40-54); LYMPHOCYTES # (AUTO) 1.2 X 10^3 (1.0-4.0); LYMPHOCYTES % (AUTO) 26 % (12-44); MEAN CORPUSCULAR HEMOGLOBIN 25 PG (25-34); MEAN CORPUSCULAR HGB CONC 31 G/DL (32-36); MEAN CORPUSCULAR VOLUME 81 FL (80-99); MEAN PLATELET VOLUME 10.7 FL (7.4-10.4); MONOCYTES # (AUTO) 0.5 X 10^3 (0.0-1.0); MONOCYTES % (AUTO) 11 % (0-12); NEUTROPHILS # (AUTO) 2.7 X 10^3 (1.8-7.8); NEUTROPHILS % (AUTO) 58 % (42-75); PLATELET COUNT 233 10^3/uL (130-400); WHITE BLOOD COUNT 4.6 10^3/uL (4.3-11.0)
[2019-10-24 10:58] LABS: BASOPHILS % (AUTO) 1 % (0-10); EOSINOPHILS # (AUTO) 0.1 10^3/uL (0.0-0.3); EOSINOPHILS % (AUTO) 3 % (0-10); HEMATOCRIT 34 % (40-54); HEMOGLOBIN 10.6 G/DL (13.3-17.7); LYMPHOCYTES # (AUTO) 1.4 X 10^3 (1.0-4.0); LYMPHOCYTES % (AUTO) 33 % (12-44); MEAN CORPUSCULAR HEMOGLOBIN 24 PG (25-34); MEAN CORPUSCULAR HGB CONC 31 G/DL (32-36); MEAN CORPUSCULAR VOLUME 78 FL (80-99); MEAN PLATELET VOLUME 10.3 FL (7.4-10.4); MONOCYTES # (AUTO) 0.3 X 10^3 (0.0-1.0); MONOCYTES % (AUTO) 8 % (0-12); NEUTROPHILS # (AUTO) 2.4 X 10^3 (1.8-7.8); NEUTROPHILS % (AUTO) 56 % (42-75); PLATELET COUNT 201 10^3/uL (130-400); WHITE BLOOD COUNT 4.3 10^3/uL (4.3-11.0)
[2019-10-24 11:17] LABS: ALANINE AMINOTRANSFERASE 29 U/L (0-55); ALBUMIN 3.7 GM/DL (3.2-4.5); ALKALINE PHOSPHATASE 98 U/L (40-136); BILIRUBIN,TOTAL 0.2 MG/DL (0.1-1.0); BUN/CREATININE RATIO 18; CALCIUM 8.6 MG/DL (8.5-10.1); CARBON DIOXIDE 27 MMOL/L (21-32); CHLORIDE 108 MMOL/L (98-107); CREATININE SERUM 1.21 MG/DL (0.60-1.30); GFR ESTIMATED > 60; GLUCOSE 102 MG/DL (70-105); POTASSIUM 4.7 MMOL/L (3.6-5.0); SODIUM 137 MMOL/L (135-145); TOTAL PROTEIN 6.7 GM/DL (6.4-8.2)
[2019-11-28 11:28] LABS: BASOPHILS % (AUTO) 0 % (0-10); EOSINOPHILS # (AUTO) 0.1 10^3/uL (0.0-0.3); EOSINOPHILS % (AUTO) 2 % (0-10); HEMATOCRIT 36 % (40-54); HEMOGLOBIN 10.9 G/DL (13.3-17.7); LYMPHOCYTES # (AUTO) 1.3 X 10^3 (1.0-4.0); LYMPHOCYTES % (AUTO) 30 % (12-44); MEAN CORPUSCULAR HEMOGLOBIN 24 PG (25-34); MEAN CORPUSCULAR HGB CONC 31 G/DL (32-36); MEAN CORPUSCULAR VOLUME 78 FL (80-99); MEAN PLATELET VOLUME 9.5 FL (7.4-10.4); MONOCYTES # (AUTO) 0.3 X 10^3 (0.0-1.0); MONOCYTES % (AUTO) 6 % (0-12); NEUTROPHILS # (AUTO) 2.6 X 10^3 (1.8-7.8); NEUTROPHILS % (AUTO) 62 % (42-75); PLATELET COUNT 305 10^3/uL (130-400); WHITE BLOOD COUNT 4.1 10^3/uL (4.3-11.0)
[2019-11-28 11:44] LABS: ALANINE AMINOTRANSFERASE 17 U/L (0-55); ALBUMIN 3.2 GM/DL (3.2-4.5); ALKALINE PHOSPHATASE 104 U/L (40-136); BILIRUBIN,TOTAL 0.2 MG/DL (0.1-1.0); BUN/CREATININE RATIO 21; CALCIUM 8.3 MG/DL (8.5-10.1); CARBON DIOXIDE 24 MMOL/L (21-32); CHLORIDE 105 MMOL/L (98-107); CREATININE SERUM 1.15 MG/DL (0.60-1.30); GFR ESTIMATED > 60; GLUCOSE 102 MG/DL (70-105); POTASSIUM 4.7 MMOL/L (3.6-5.0); SODIUM 136 MMOL/L (135-145); TOTAL PROTEIN 6.4 GM/DL (6.4-8.2)
== END 2020-01-01 | disposition home or self-care (01) ==
LOC: ONC 10:06
PROVIDERS: ATTEND Internal Medicine Hematology & Oncology
DX: D68.51 Activated protein C resistance (principal); D50.0 Iron deficiency anemia secondary to blood loss (chronic); I82.503 Chronic embolism and thrombosis of unspecified deep veins of lower extremity, bilateral; K29.70 Gastritis, unspecified, without bleeding; E66.01 Morbid (severe) obesity due to excess calories; K21.9 Gastro-esophageal reflux disease without esophagitis; Z68.39 Body mass index [BMI] 39.0-39.9, adult; Z79.01 Long term (current) use of anticoagulants; Z79.82 Long term (current) use of aspirin; Z79.899 Other long term (current) drug therapy
CPT/HCPCS: 80053; 82728; 83540; 85025

== ENCOUNTER → 2019-12-05 | Outpatient (CLI) | payer BC | LOC: WOUNDCARE 08:38 | PROVIDERS: ATTEND Surgery | DX: L97.222 Non-pressure chronic ulcer of left calf with fat layer exposed (principal); I87.332 Chronic venous hypertension (idiopathic) with ulcer and inflammation of left lower extremity; D68.51 Activated protein C resistance; I82.503 Chronic embolism and thrombosis of unspecified deep veins of lower extremity, bilateral; L97.522 Non-pressure chronic ulcer of other part of left foot with fat layer exposed; I89.0 Lymphedema, not elsewhere classified; I96 Gangrene, not elsewhere classified | CPT/HCPCS: 11042; 11045; G0463 ==

== ENCOUNTER → 2019-12-05 | Outpatient (CLI) | payer BC | LOC: LAB 10:46 | PROVIDERS: ATTEND Surgery | DX: L97.222 Non-pressure chronic ulcer of left calf with fat layer exposed (principal); I87.332 Chronic venous hypertension (idiopathic) with ulcer and inflammation of left lower extremity; D68.51 Activated protein C resistance; I82.503 Chronic embolism and thrombosis of unspecified deep veins of lower extremity, bilateral; L97.522 Non-pressure chronic ulcer of other part of left foot with fat layer exposed; I89.0 Lymphedema, not elsewhere classified | CPT/HCPCS: 36415; 84134 ==

== ENCOUNTER → 2019-12-12 | Outpatient (CLI) | payer BC | LOC: WOUNDCARE 08:35 | PROVIDERS: ATTEND Surgery | DX: L97.222 Non-pressure chronic ulcer of left calf with fat layer exposed (principal); I87.332 Chronic venous hypertension (idiopathic) with ulcer and inflammation of left lower extremity; D68.51 Activated protein C resistance; I82.503 Chronic embolism and thrombosis of unspecified deep veins of lower extremity, bilateral; L97.522 Non-pressure chronic ulcer of other part of left foot with fat layer exposed; I89.0 Lymphedema, not elsewhere classified; I96 Gangrene, not elsewhere classified | CPT/HCPCS: 11042; 11045; G0463 ==

== ENCOUNTER → 2019-12-19 | Outpatient (CLI) | payer BC | LOC: WOUNDCARE 08:37 | PROVIDERS: ATTEND Surgery | DX: L97.222 Non-pressure chronic ulcer of left calf with fat layer exposed (principal); I87.332 Chronic venous hypertension (idiopathic) with ulcer and inflammation of left lower extremity; D68.51 Activated protein C resistance; I82.503 Chronic embolism and thrombosis of unspecified deep veins of lower extremity, bilateral; L97.522 Non-pressure chronic ulcer of other part of left foot with fat layer exposed; I89.0 Lymphedema, not elsewhere classified | CPT/HCPCS: 11042; 11045 ==

== ENCOUNTER → 2019-12-26 | Outpatient (CLI) | payer BC | LOC: WOUNDCARE 08:38 | PROVIDERS: ATTEND Surgery | DX: I96 Gangrene, not elsewhere classified (principal); I87.332 Chronic venous hypertension (idiopathic) with ulcer and inflammation of left lower extremity; L97.222 Non-pressure chronic ulcer of left calf with fat layer exposed; D68.51 Activated protein C resistance; I82.503 Chronic embolism and thrombosis of unspecified deep veins of lower extremity, bilateral; L97.522 Non-pressure chronic ulcer of other part of left foot with fat layer exposed; I89.0 Lymphedema, not elsewhere classified | CPT/HCPCS: 11042; 11045; G0463 ==

== ENCOUNTER → 2020-01-04 | Outpatient (CLI) | payer BC | LOC: WOUNDCARE 08:37 | PROVIDERS: ATTEND Surgery | DX: I87.332 Chronic venous hypertension (idiopathic) with ulcer and inflammation of left lower extremity (principal); L97.222 Non-pressure chronic ulcer of left calf with fat layer exposed; L97.522 Non-pressure chronic ulcer of other part of left foot with fat layer exposed; I89.0 Lymphedema, not elsewhere classified; I82.503 Chronic embolism and thrombosis of unspecified deep veins of lower extremity, bilateral; D68.51 Activated protein C resistance; I96 Gangrene, not elsewhere classified | CPT/HCPCS: 11042; 11045; A6253; G0463 ==

== ENCOUNTER → 2020-01-04 | Outpatient (CLI) | payer BC | LOC: LAB 10:18 | PROVIDERS: ATTEND Surgery | DX: L97.222 Non-pressure chronic ulcer of left calf with fat layer exposed (principal); I87.332 Chronic venous hypertension (idiopathic) with ulcer and inflammation of left lower extremity; D68.51 Activated protein C resistance; I82.503 Chronic embolism and thrombosis of unspecified deep veins of lower extremity, bilateral; L97.522 Non-pressure chronic ulcer of other part of left foot with fat layer exposed; I89.0 Lymphedema, not elsewhere classified | CPT/HCPCS: 36415; 84134 ==

== ENCOUNTER → 2020-01-06 | Outpatient (CLI) | payer BC | LOC: WOUNDCARE 09:27 | PROVIDERS: ATTEND Surgery | DX: L97.222 Non-pressure chronic ulcer of left calf with fat layer exposed (principal); I89.0 Lymphedema, not elsewhere classified | CPT/HCPCS: 29581; A6253; G0463 ==

== ENCOUNTER → 2020-01-09 | Outpatient (CLI) | payer BC | LOC: WOUNDCARE 08:40 | PROVIDERS: ATTEND Surgery | DX: I87.332 Chronic venous hypertension (idiopathic) with ulcer and inflammation of left lower extremity (principal); L97.222 Non-pressure chronic ulcer of left calf with fat layer exposed; D68.51 Activated protein C resistance; I82.503 Chronic embolism and thrombosis of unspecified deep veins of lower extremity, bilateral; L97.522 Non-pressure chronic ulcer of other part of left foot with fat layer exposed; I89.0 Lymphedema, not elsewhere classified; I96 Gangrene, not elsewhere classified | CPT/HCPCS: 11042; A6253; G0463 ==

== ENCOUNTER → 2020-01-16 | Outpatient (CLI) | payer BC | LOC: WOUNDCARE 08:38 | PROVIDERS: ATTEND Surgery | DX: L97.222 Non-pressure chronic ulcer of left calf with fat layer exposed (principal); I87.332 Chronic venous hypertension (idiopathic) with ulcer and inflammation of left lower extremity; D68.51 Activated protein C resistance; I82.503 Chronic embolism and thrombosis of unspecified deep veins of lower extremity, bilateral; L97.522 Non-pressure chronic ulcer of other part of left foot with fat layer exposed; I89.0 Lymphedema, not elsewhere classified; I96 Gangrene, not elsewhere classified | CPT/HCPCS: 11042; 11045; A6207; A6253; G0463 ==

== ENCOUNTER → 2020-01-19 | Outpatient (CLI) | payer BC | LOC: WOUNDCARE 08:21 | PROVIDERS: ATTEND Surgery | DX: I87.312 Chronic venous hypertension (idiopathic) with ulcer of left lower extremity (principal) | CPT/HCPCS: 29581; A6253; G0463 ==

== ENCOUNTER → 2020-01-23 | Outpatient (CLI) | payer BC | LOC: WOUNDCARE 08:42 | PROVIDERS: ATTEND Surgery | DX: L97.222 Non-pressure chronic ulcer of left calf with fat layer exposed (principal); I87.332 Chronic venous hypertension (idiopathic) with ulcer and inflammation of left lower extremity; D68.51 Activated protein C resistance; I82.503 Chronic embolism and thrombosis of unspecified deep veins of lower extremity, bilateral; L97.522 Non-pressure chronic ulcer of other part of left foot with fat layer exposed; I89.0 Lymphedema, not elsewhere classified | CPT/HCPCS: 11042; 11045; A6253; G0463 ==

== ENCOUNTER → 2020-01-30 | Outpatient (CLI) | payer BC | LOC: WOUNDCARE 08:33 | PROVIDERS: ATTEND Surgery | DX: I87.332 Chronic venous hypertension (idiopathic) with ulcer and inflammation of left lower extremity (principal); L97.222 Non-pressure chronic ulcer of left calf with fat layer exposed; I89.0 Lymphedema, not elsewhere classified; D68.51 Activated protein C resistance; I82.503 Chronic embolism and thrombosis of unspecified deep veins of lower extremity, bilateral; L97.522 Non-pressure chronic ulcer of other part of left foot with fat layer exposed; I96 Gangrene, not elsewhere classified | CPT/HCPCS: 11042; 11045; G0463 ==

== ENCOUNTER 2020-02-06 10:30 | Outpatient (RCR) | payer BC ==
[2020-01-30 10:30] LABS: BASOPHILS % (AUTO) 1 % (0-10); EOSINOPHILS # (AUTO) 0.1 10^3/uL (0.0-0.3); EOSINOPHILS % (AUTO) 2 % (0-10); HEMATOCRIT 26 % (40-54); HEMOGLOBIN 8.1 g/dL (13.3-17.7); LYMPHOCYTES # (AUTO) 0.7 10^3/uL (1.0-4.0); LYMPHOCYTES % (AUTO) 26 % (12-44); MEAN CORPUSCULAR HEMOGLOBIN 25 pg (25-34); MEAN CORPUSCULAR HGB CONC 31 g/dL (32-36); MEAN CORPUSCULAR VOLUME 82 fL (80-99); MEAN PLATELET VOLUME 8.7 fL (9.0-12.2); MONOCYTES # (AUTO) 0.1 10^3/uL (0.0-1.0); MONOCYTES % (AUTO) 5 % (0-12); NEUTROPHILS # (AUTO) 1.7 10^3/uL (1.8-7.8); NEUTROPHILS % (AUTO) 65 % (42-75); PLATELET COUNT 96 10^3/uL (130-400); WHITE BLOOD COUNT 2.6 10^3/uL (4.3-11.0)
[2020-01-30 10:46] LABS: ALANINE AMINOTRANSFERASE 14 U/L (0-55); ALBUMIN 3.8 GM/DL (3.2-4.5); ALKALINE PHOSPHATASE 78 U/L (40-136); BILIRUBIN,TOTAL 0.5 MG/DL (0.1-1.0); BUN/CREATININE RATIO 19; CARBON DIOXIDE 25 MMOL/L (21-32); CHLORIDE 105 MMOL/L (98-107); CREATININE SERUM 1.18 MG/DL (0.60-1.30); GFR ESTIMATED > 60; GLUCOSE 109 MG/DL (70-105); POTASSIUM 4.7 MMOL/L (3.6-5.0); SODIUM 138 MMOL/L (135-145); TOTAL PROTEIN 6.5 GM/DL (6.4-8.2)
== END 2020-03-13 15:22 | disposition home or self-care (01) ==
LOC: ONC 10:30
PROVIDERS: ATTEND Internal Medicine Hematology & Oncology
DX: D68.51 Activated protein C resistance (principal); D50.0 Iron deficiency anemia secondary to blood loss (chronic); I82.503 Chronic embolism and thrombosis of unspecified deep veins of lower extremity, bilateral; K29.70 Gastritis, unspecified, without bleeding; E66.01 Morbid (severe) obesity due to excess calories; K21.9 Gastro-esophageal reflux disease without esophagitis; Z68.39 Body mass index [BMI] 39.0-39.9, adult; Z79.01 Long term (current) use of anticoagulants; Z79.82 Long term (current) use of aspirin; Z79.899 Other long term (current) drug therapy; Z87.11 Personal history of peptic ulcer disease
CPT/HCPCS: 80053; 82728; 83540; 85025

== ENCOUNTER → 2020-02-06 | Outpatient (CLI) | payer BC | LOC: WOUNDCARE 09:11 | PROVIDERS: ATTEND Surgery | DX: L97.222 Non-pressure chronic ulcer of left calf with fat layer exposed (principal); I87.332 Chronic venous hypertension (idiopathic) with ulcer and inflammation of left lower extremity; D68.51 Activated protein C resistance; I82.503 Chronic embolism and thrombosis of unspecified deep veins of lower extremity, bilateral; L97.522 Non-pressure chronic ulcer of other part of left foot with fat layer exposed; I89.0 Lymphedema, not elsewhere classified; I96 Gangrene, not elsewhere classified | CPT/HCPCS: 11042; 11045; G0463 ==

== ENCOUNTER → 2020-02-13 | Outpatient (CLI) | payer BC | LOC: WOUNDCARE 08:35 | PROVIDERS: ATTEND Surgery | DX: I96 Gangrene, not elsewhere classified (principal); I87.332 Chronic venous hypertension (idiopathic) with ulcer and inflammation of left lower extremity; I89.0 Lymphedema, not elsewhere classified; I82.503 Chronic embolism and thrombosis of unspecified deep veins of lower extremity, bilateral; D68.51 Activated protein C resistance; L97.522 Non-pressure chronic ulcer of other part of left foot with fat layer exposed; L97.222 Non-pressure chronic ulcer of left calf with fat layer exposed | CPT/HCPCS: 11042; 11045; G0463 ==

== ENCOUNTER → 2020-02-20 | Outpatient (CLI) | payer BC | LOC: WOUNDCARE 08:33 | PROVIDERS: ATTEND Surgery | DX: I96 Gangrene, not elsewhere classified (principal); I87.332 Chronic venous hypertension (idiopathic) with ulcer and inflammation of left lower extremity; L97.222 Non-pressure chronic ulcer of left calf with fat layer exposed; L97.522 Non-pressure chronic ulcer of other part of left foot with fat layer exposed; D68.51 Activated protein C resistance; I82.593 Chronic embolism and thrombosis of other specified deep vein of lower extremity, bilateral; I89.0 Lymphedema, not elsewhere classified | CPT/HCPCS: 11042; 11045; G0463 ==

== ENCOUNTER → 2020-02-27 | Outpatient (CLI) | payer BC | LOC: WOUNDCARE 08:40 | PROVIDERS: ATTEND Surgery | DX: I87.332 Chronic venous hypertension (idiopathic) with ulcer and inflammation of left lower extremity (principal); I96 Gangrene, not elsewhere classified; D68.51 Activated protein C resistance; I82.503 Chronic embolism and thrombosis of unspecified deep veins of lower extremity, bilateral; L97.522 Non-pressure chronic ulcer of other part of left foot with fat layer exposed; I89.0 Lymphedema, not elsewhere classified; L97.222 Non-pressure chronic ulcer of left calf with fat layer exposed | CPT/HCPCS: 11042; 11045; G0463 ==

== ENCOUNTER → 2020-03-05 | Outpatient (CLI) | payer BC | LOC: WOUNDCARE 08:38 | PROVIDERS: ATTEND Surgery | DX: I87.332 Chronic venous hypertension (idiopathic) with ulcer and inflammation of left lower extremity (principal); D68.51 Activated protein C resistance; I82.503 Chronic embolism and thrombosis of unspecified deep veins of lower extremity, bilateral; L97.522 Non-pressure chronic ulcer of other part of left foot with fat layer exposed; I89.0 Lymphedema, not elsewhere classified; I96 Gangrene, not elsewhere classified; L97.222 Non-pressure chronic ulcer of left calf with fat layer exposed | CPT/HCPCS: 11042; 11045; G0463 ==

== ENCOUNTER → 2020-03-12 | Outpatient (CLI) | payer BC | LOC: WOUNDCARE 08:39 | PROVIDERS: ATTEND Surgery | DX: L97.222 Non-pressure chronic ulcer of left calf with fat layer exposed (principal); I87.332 Chronic venous hypertension (idiopathic) with ulcer and inflammation of left lower extremity; D68.51 Activated protein C resistance; I82.503 Chronic embolism and thrombosis of unspecified deep veins of lower extremity, bilateral; L97.522 Non-pressure chronic ulcer of other part of left foot with fat layer exposed; I89.0 Lymphedema, not elsewhere classified | CPT/HCPCS: 11042; 11045 ==

== ENCOUNTER → 2020-03-23 | Outpatient (CLI) | payer BC | LOC: WOUNDCARE 08:35 | PROVIDERS: ATTEND Orthopaedic Surgery Hand Surgery | DX: L97.222 Non-pressure chronic ulcer of left calf with fat layer exposed (principal); I87.332 Chronic venous hypertension (idiopathic) with ulcer and inflammation of left lower extremity; D68.51 Activated protein C resistance; I82.503 Chronic embolism and thrombosis of unspecified deep veins of lower extremity, bilateral; L97.522 Non-pressure chronic ulcer of other part of left foot with fat layer exposed; I89.0 Lymphedema, not elsewhere classified; I96 Gangrene, not elsewhere classified | CPT/HCPCS: 11042; 11045; G0463 ==

== ENCOUNTER 2020-03-26 09:59 | Outpatient (RCR) | payer BC ==
[2020-03-23 10:04] LABS: BASOPHILS % (AUTO) 1 % (0-10); EOSINOPHILS # (AUTO) 0.1 10^3/uL (0.0-0.3); EOSINOPHILS % (AUTO) 3 % (0-10); HEMATOCRIT 32 % (40-54); HEMOGLOBIN 9.4 g/dL (13.3-17.7); LYMPHOCYTES # (AUTO) 0.8 10^3/uL (1.0-4.0); LYMPHOCYTES % (AUTO) 21 % (12-44); MEAN CORPUSCULAR HEMOGLOBIN 26 pg (25-34); MEAN CORPUSCULAR HGB CONC 30 g/dL (32-36); MEAN CORPUSCULAR VOLUME 86 fL (80-99); MONOCYTES # (AUTO) 0.3 10^3/uL (0.0-1.0); MONOCYTES % (AUTO) 7 % (0-12); NEUTROPHILS # (AUTO) 2.6 10^3/uL (1.8-7.8); NEUTROPHILS % (AUTO) 69 % (42-75); PLATELET COUNT 206 10^3/uL (130-400); WHITE BLOOD COUNT 3.8 10^3/uL (4.3-11.0)
[2020-03-23 10:21] LABS: ALBUMIN 3.5 GM/DL (3.2-4.5); BILIRUBIN,TOTAL 0.2 MG/DL (0.1-1.0); CALCIUM 8.6 MG/DL (8.5-10.1); CREATININE SERUM 1.32 MG/DL (0.60-1.30); POTASSIUM 4.5 MMOL/L (3.6-5.0); TOTAL PROTEIN 6.4 GM/DL (6.4-8.2)
[2020-06-11 10:28] LABS: BASOPHILS % (AUTO) 1 % (0-10); EOSINOPHILS # (AUTO) 0.2 10^3/uL (0.0-0.3); EOSINOPHILS % (AUTO) 3 % (0-10); HEMATOCRIT 30 % (40-54); HEMOGLOBIN 8.9 g/dL (13.3-17.7); LYMPHOCYTES # (AUTO) 1.2 10^3/uL (1.0-4.0); LYMPHOCYTES % (AUTO) 28 % (12-44); MEAN CORPUSCULAR HEMOGLOBIN 23 pg (25-34); MEAN CORPUSCULAR HGB CONC 30 g/dL (32-36); MEAN CORPUSCULAR VOLUME 77 fL (80-99); MEAN PLATELET VOLUME 9.1 fL (9.0-12.2); MONOCYTES # (AUTO) 0.5 10^3/uL (0.0-1.0); MONOCYTES % (AUTO) 11 % (0-12); NEUTROPHILS # (AUTO) 2.5 10^3/uL (1.8-7.8); NEUTROPHILS % (AUTO) 56 % (42-75); PLATELET COUNT 192 10^3/uL (130-400); WHITE BLOOD COUNT 4.4 10^3/uL (4.3-11.0)
[2020-06-11 10:52] LABS: ALBUMIN 3.6 GM/DL (3.2-4.5); BILIRUBIN,TOTAL 0.2 MG/DL (0.1-1.0); CALCIUM 8.4 MG/DL (8.5-10.1); CREATININE SERUM 1.47 MG/DL (0.60-1.30); POTASSIUM 5.1 MMOL/L (3.6-5.0); TOTAL PROTEIN 6.6 GM/DL (6.4-8.2)
== END 2020-06-11 10:11 | disposition home or self-care (01) ==
LOC: ONC 09:59
PROVIDERS: ATTEND Internal Medicine Hematology & Oncology
DX: D68.51 Activated protein C resistance (principal); D50.0 Iron deficiency anemia secondary to blood loss (chronic); I82.503 Chronic embolism and thrombosis of unspecified deep veins of lower extremity, bilateral; K29.70 Gastritis, unspecified, without bleeding; E66.01 Morbid (severe) obesity due to excess calories; K21.9 Gastro-esophageal reflux disease without esophagitis; Z68.39 Body mass index [BMI] 39.0-39.9, adult; Z79.01 Long term (current) use of anticoagulants; Z79.82 Long term (current) use of aspirin; Z79.899 Other long term (current) drug therapy; Z87.11 Personal history of peptic ulcer disease
CPT/HCPCS: 80053; 82728; 83540; 83550; 85025

== ENCOUNTER → 2020-03-26 | Outpatient (CLI) | payer BC | LOC: WOUNDCARE 08:36 | PROVIDERS: ATTEND Surgery | DX: I96 Gangrene, not elsewhere classified (principal); L97.222 Non-pressure chronic ulcer of left calf with fat layer exposed; I87.332 Chronic venous hypertension (idiopathic) with ulcer and inflammation of left lower extremity; L97.522 Non-pressure chronic ulcer of other part of left foot with fat layer exposed; I89.0 Lymphedema, not elsewhere classified; I82.503 Chronic embolism and thrombosis of unspecified deep veins of lower extremity, bilateral; D68.51 Activated protein C resistance | CPT/HCPCS: 11042; 11045; G0463 ==

== ENCOUNTER → 2020-04-09 | Outpatient (CLI) | payer BC | LOC: WOUNDCARE 08:37 | PROVIDERS: ATTEND Surgery | DX: I96 Gangrene, not elsewhere classified (principal); L97.222 Non-pressure chronic ulcer of left calf with fat layer exposed; I87.332 Chronic venous hypertension (idiopathic) with ulcer and inflammation of left lower extremity; D68.51 Activated protein C resistance; I82.503 Chronic embolism and thrombosis of unspecified deep veins of lower extremity, bilateral; L97.522 Non-pressure chronic ulcer of other part of left foot with fat layer exposed; I89.0 Lymphedema, not elsewhere classified | CPT/HCPCS: 11042; 11045 ==

== ENCOUNTER → 2020-04-16 | Outpatient (CLI) | payer BC | LOC: WOUNDCARE 08:40 | PROVIDERS: ATTEND Surgery | DX: I96 Gangrene, not elsewhere classified (principal); I87.332 Chronic venous hypertension (idiopathic) with ulcer and inflammation of left lower extremity; D68.51 Activated protein C resistance; I89.0 Lymphedema, not elsewhere classified; I82.503 Chronic embolism and thrombosis of unspecified deep veins of lower extremity, bilateral; L97.222 Non-pressure chronic ulcer of left calf with fat layer exposed; L97.522 Non-pressure chronic ulcer of other part of left foot with fat layer exposed | CPT/HCPCS: 11042; 11045; G0463 ==

== ENCOUNTER → 2020-04-30 | Outpatient (CLI) | payer BC | LOC: WOUNDCARE 09:05 | PROVIDERS: ATTEND Surgery | DX: I96 Gangrene, not elsewhere classified (principal); L97.222 Non-pressure chronic ulcer of left calf with fat layer exposed; I87.332 Chronic venous hypertension (idiopathic) with ulcer and inflammation of left lower extremity; D68.51 Activated protein C resistance; I82.503 Chronic embolism and thrombosis of unspecified deep veins of lower extremity, bilateral; L97.522 Non-pressure chronic ulcer of other part of left foot with fat layer exposed; I89.0 Lymphedema, not elsewhere classified | CPT/HCPCS: 99214 ==

== ENCOUNTER → 2020-05-21 | Outpatient (CLI) | payer BC | LOC: WOUNDCARE 08:44 | PROVIDERS: ATTEND Surgery | DX: I87.332 Chronic venous hypertension (idiopathic) with ulcer and inflammation of left lower extremity (principal); L97.222 Non-pressure chronic ulcer of left calf with fat layer exposed; I96 Gangrene, not elsewhere classified; I89.0 Lymphedema, not elsewhere classified; D68.51 Activated protein C resistance; I82.5Z3 Chronic embolism and thrombosis of unspecified deep veins of distal lower extremity, bilateral; L97.522 Non-pressure chronic ulcer of other part of left foot with fat layer exposed | CPT/HCPCS: 11042; G0463 ==

== ENCOUNTER → 2020-05-28 | Outpatient (CLI) | payer BC | LOC: WOUNDCARE 08:40 | PROVIDERS: ATTEND Surgery | DX: I96 Gangrene, not elsewhere classified (principal); L97.222 Non-pressure chronic ulcer of left calf with fat layer exposed; I87.332 Chronic venous hypertension (idiopathic) with ulcer and inflammation of left lower extremity; D68.51 Activated protein C resistance; I82.503 Chronic embolism and thrombosis of unspecified deep veins of lower extremity, bilateral; L97.522 Non-pressure chronic ulcer of other part of left foot with fat layer exposed; I89.0 Lymphedema, not elsewhere classified | CPT/HCPCS: 11042; 11045; G0463 ==

== ENCOUNTER → 2020-06-04 | Outpatient (CLI) | payer BC | LOC: WOUNDCARE 08:42 | PROVIDERS: ATTEND Surgery | DX: L97.222 Non-pressure chronic ulcer of left calf with fat layer exposed (principal); I87.332 Chronic venous hypertension (idiopathic) with ulcer and inflammation of left lower extremity; D68.51 Activated protein C resistance; I82.403 Acute embolism and thrombosis of unspecified deep veins of lower extremity, bilateral; L97.522 Non-pressure chronic ulcer of other part of left foot with fat layer exposed; I89.0 Lymphedema, not elsewhere classified; I96 Gangrene, not elsewhere classified | CPT/HCPCS: 11042; 11045; 87070; 87205; G0463 ==

== ENCOUNTER → 2020-06-11 | Outpatient (CLI) | payer BC | LOC: WOUNDCARE 08:33 | PROVIDERS: ATTEND Surgery | DX: I96 Gangrene, not elsewhere classified (principal); L97.222 Non-pressure chronic ulcer of left calf with fat layer exposed; I87.332 Chronic venous hypertension (idiopathic) with ulcer and inflammation of left lower extremity; D68.51 Activated protein C resistance; I82.5Z3 Chronic embolism and thrombosis of unspecified deep veins of distal lower extremity, bilateral; L97.522 Non-pressure chronic ulcer of other part of left foot with fat layer exposed; I89.0 Lymphedema, not elsewhere classified | CPT/HCPCS: 11042; 11045; G0463 ==

== ENCOUNTER → 2020-06-21 | Outpatient (CLI) | payer BC | LOC: WOUNDCARE 14:00 | PROVIDERS: ATTEND Orthopaedic Surgery Hand Surgery | DX: I96 Gangrene, not elsewhere classified (principal); I87.332 Chronic venous hypertension (idiopathic) with ulcer and inflammation of left lower extremity; L97.222 Non-pressure chronic ulcer of left calf with fat layer exposed; D68.51 Activated protein C resistance; I82.503 Chronic embolism and thrombosis of unspecified deep veins of lower extremity, bilateral; L97.522 Non-pressure chronic ulcer of other part of left foot with fat layer exposed; I89.0 Lymphedema, not elsewhere classified | CPT/HCPCS: 11042; 11045; G0463 ==

== ENCOUNTER → 2020-06-25 | Outpatient (CLI) | payer BC | LOC: WOUNDCARE 08:34 | PROVIDERS: ATTEND Surgery | DX: I96 Gangrene, not elsewhere classified (principal); L97.222 Non-pressure chronic ulcer of left calf with fat layer exposed; I87.332 Chronic venous hypertension (idiopathic) with ulcer and inflammation of left lower extremity; D68.51 Activated protein C resistance; I82.503 Chronic embolism and thrombosis of unspecified deep veins of lower extremity, bilateral; L97.522 Non-pressure chronic ulcer of other part of left foot with fat layer exposed; I89.0 Lymphedema, not elsewhere classified | CPT/HCPCS: 11042; 11045; G0463 ==

== ENCOUNTER → 2020-07-02 | Outpatient (CLI) | payer BC | LOC: WOUNDCARE 08:35 | PROVIDERS: ATTEND Surgery | DX: L97.222 Non-pressure chronic ulcer of left calf with fat layer exposed (principal); I87.332 Chronic venous hypertension (idiopathic) with ulcer and inflammation of left lower extremity; D68.51 Activated protein C resistance; I82.503 Chronic embolism and thrombosis of unspecified deep veins of lower extremity, bilateral; L97.522 Non-pressure chronic ulcer of other part of left foot with fat layer exposed; I89.0 Lymphedema, not elsewhere classified; I96 Gangrene, not elsewhere classified | CPT/HCPCS: 11042; 11045; G0463 ==

== ENCOUNTER → 2020-07-09 | Outpatient (CLI) | payer BC | LOC: WOUNDCARE 08:42 | PROVIDERS: ATTEND Surgery | DX: I96 Gangrene, not elsewhere classified (principal); L97.222 Non-pressure chronic ulcer of left calf with fat layer exposed; I87.332 Chronic venous hypertension (idiopathic) with ulcer and inflammation of left lower extremity; D68.51 Activated protein C resistance; I82.503 Chronic embolism and thrombosis of unspecified deep veins of lower extremity, bilateral; L97.522 Non-pressure chronic ulcer of other part of left foot with fat layer exposed; I89.0 Lymphedema, not elsewhere classified | CPT/HCPCS: 11042; 11045; G0463 ==

== ENCOUNTER 2020-07-16 09:51 | Outpatient (RCR) | payer BC ==
[2020-07-13 10:56] LABS: BASOPHILS % (AUTO) 1 % (0-10); EOSINOPHILS # (AUTO) 0.2 10^3/uL (0.0-0.3); EOSINOPHILS % (AUTO) 4 % (0-10); HEMATOCRIT 34 % (40-54); HEMOGLOBIN 9.9 g/dL (13.3-17.7); LYMPHOCYTES # (AUTO) 1.2 10^3/uL (1.0-4.0); LYMPHOCYTES % (AUTO) 26 % (12-44); MEAN CORPUSCULAR HEMOGLOBIN 23 pg (25-34); MEAN CORPUSCULAR HGB CONC 29 g/dL (32-36); MEAN CORPUSCULAR VOLUME 80 fL (80-99); MEAN PLATELET VOLUME 8.9 fL (9.0-12.2); MONOCYTES # (AUTO) 0.3 10^3/uL (0.0-1.0); MONOCYTES % (AUTO) 7 % (0-12); NEUTROPHILS # (AUTO) 2.9 10^3/uL (1.8-7.8); NEUTROPHILS % (AUTO) 62 % (42-75); PLATELET COUNT 230 10^3/uL (130-400); WHITE BLOOD COUNT 4.7 10^3/uL (4.3-11.0)
[2020-07-13 11:12] LABS: ALBUMIN 3.6 GM/DL (3.2-4.5); BILIRUBIN,TOTAL 0.3 MG/DL (0.1-1.0); CALCIUM 8.3 MG/DL (8.5-10.1); CREATININE SERUM 1.44 MG/DL (0.60-1.30); POTASSIUM 4.1 MMOL/L (3.6-5.0); TOTAL PROTEIN 6.7 GM/DL (6.4-8.2)
== END 2020-09-09 | disposition home or self-care (01) ==
LOC: ONC 09:51
PROVIDERS: ATTEND Internal Medicine Hematology & Oncology
DX: D50.0 Iron deficiency anemia secondary to blood loss (chronic) (principal); D68.51 Activated protein C resistance; S81.802A Unspecified open wound, left lower leg, initial encounter; K29.51 Unspecified chronic gastritis with bleeding; I82.503 Chronic embolism and thrombosis of unspecified deep veins of lower extremity, bilateral; E66.01 Morbid (severe) obesity due to excess calories; K21.9 Gastro-esophageal reflux disease without esophagitis; Z68.39 Body mass index [BMI] 39.0-39.9, adult; Z79.01 Long term (current) use of anticoagulants; Z79.82 Long term (current) use of aspirin; Z79.899 Other long term (current) drug therapy; Z87.11 Personal history of peptic ulcer disease
CPT/HCPCS: 80053; 82728; 83540; 83550; 85025; 99213

== ENCOUNTER → 2020-07-23 | Outpatient (CLI) | payer BC | LOC: WOUNDCARE 08:39 | PROVIDERS: ATTEND Surgery | DX: I96 Gangrene, not elsewhere classified (principal); I87.332 Chronic venous hypertension (idiopathic) with ulcer and inflammation of left lower extremity; L97.222 Non-pressure chronic ulcer of left calf with fat layer exposed; D68.51 Activated protein C resistance; I82.503 Chronic embolism and thrombosis of unspecified deep veins of lower extremity, bilateral; L97.522 Non-pressure chronic ulcer of other part of left foot with fat layer exposed; I89.0 Lymphedema, not elsewhere classified | CPT/HCPCS: 11042; 11045; G0463 ==

== ENCOUNTER → 2020-07-31 | Outpatient (CLI) | payer BC | LOC: WOUNDCARE 08:46 | PROVIDERS: ATTEND Surgery | DX: L97.222 Non-pressure chronic ulcer of left calf with fat layer exposed (principal); I87.332 Chronic venous hypertension (idiopathic) with ulcer and inflammation of left lower extremity; D68.51 Activated protein C resistance; I82.503 Chronic embolism and thrombosis of unspecified deep veins of lower extremity, bilateral; L97.522 Non-pressure chronic ulcer of other part of left foot with fat layer exposed; I89.0 Lymphedema, not elsewhere classified; I96 Gangrene, not elsewhere classified | CPT/HCPCS: 11042; 11045; G0463 ==

== ENCOUNTER → 2020-08-07 | Outpatient (CLI) | payer BC | LOC: WOUNDCARE 08:31 | PROVIDERS: ATTEND Surgery | DX: L97.222 Non-pressure chronic ulcer of left calf with fat layer exposed (principal); I87.332 Chronic venous hypertension (idiopathic) with ulcer and inflammation of left lower extremity; D68.51 Activated protein C resistance; I82.403 Acute embolism and thrombosis of unspecified deep veins of lower extremity, bilateral; L97.522 Non-pressure chronic ulcer of other part of left foot with fat layer exposed; I89.0 Lymphedema, not elsewhere classified; I96 Gangrene, not elsewhere classified | CPT/HCPCS: 11042; 11045; G0463 ==

== ENCOUNTER → 2020-08-14 | Outpatient (CLI) | payer BC | LOC: WOUNDCARE 09:11 | PROVIDERS: ATTEND Surgery | DX: I87.332 Chronic venous hypertension (idiopathic) with ulcer and inflammation of left lower extremity (principal); I96 Gangrene, not elsewhere classified; L97.222 Non-pressure chronic ulcer of left calf with fat layer exposed; D68.51 Activated protein C resistance; I82.503 Chronic embolism and thrombosis of unspecified deep veins of lower extremity, bilateral; L97.522 Non-pressure chronic ulcer of other part of left foot with fat layer exposed; I89.0 Lymphedema, not elsewhere classified | CPT/HCPCS: 11042; 11045; A6253; G0463 ==

== ENCOUNTER → 2020-08-17 | Outpatient (CLI) | payer BC | LOC: WOUNDCARE 08:19 | PROVIDERS: ATTEND Orthopaedic Surgery Hand Surgery | DX: I87.312 Chronic venous hypertension (idiopathic) with ulcer of left lower extremity (principal); I89.0 Lymphedema, not elsewhere classified | CPT/HCPCS: 29580; A6197; A6253; G0463 ==

== ENCOUNTER → 2020-08-20 | Outpatient (CLI) | payer BC | LOC: WOUNDCARE 08:35 | PROVIDERS: ATTEND Surgery | DX: I96 Gangrene, not elsewhere classified (principal); L97.222 Non-pressure chronic ulcer of left calf with fat layer exposed; I87.332 Chronic venous hypertension (idiopathic) with ulcer and inflammation of left lower extremity; D68.51 Activated protein C resistance; I82.503 Chronic embolism and thrombosis of unspecified deep veins of lower extremity, bilateral; L97.522 Non-pressure chronic ulcer of other part of left foot with fat layer exposed; I89.0 Lymphedema, not elsewhere classified | CPT/HCPCS: 11042; 11045; G0463 ==

== ENCOUNTER → 2020-08-27 | Outpatient (CLI) | payer BC | LOC: WOUNDCARE 08:29 | PROVIDERS: ATTEND Surgery | DX: I87.332 Chronic venous hypertension (idiopathic) with ulcer and inflammation of left lower extremity (principal); I96 Gangrene, not elsewhere classified; L97.222 Non-pressure chronic ulcer of left calf with fat layer exposed; D68.51 Activated protein C resistance; I82.503 Chronic embolism and thrombosis of unspecified deep veins of lower extremity, bilateral; L97.522 Non-pressure chronic ulcer of other part of left foot with fat layer exposed; I89.0 Lymphedema, not elsewhere classified | CPT/HCPCS: 11042; 11045; G0463 ==

== ENCOUNTER → 2020-09-03 | Outpatient (CLI) | payer BC | LOC: WOUNDCARE 08:34 | PROVIDERS: ATTEND Surgery | DX: I96 Gangrene, not elsewhere classified (principal); L97.222 Non-pressure chronic ulcer of left calf with fat layer exposed; I87.332 Chronic venous hypertension (idiopathic) with ulcer and inflammation of left lower extremity; D68.51 Activated protein C resistance; I82.503 Chronic embolism and thrombosis of unspecified deep veins of lower extremity, bilateral; L97.522 Non-pressure chronic ulcer of other part of left foot with fat layer exposed; I89.0 Lymphedema, not elsewhere classified | CPT/HCPCS: 11042; 11045; G0463 ==

== ENCOUNTER → 2020-09-11 | Outpatient (CLI) | payer BC | LOC: WOUNDCARE 08:46 | PROVIDERS: ATTEND Surgery | DX: I96 Gangrene, not elsewhere classified (principal); L97.222 Non-pressure chronic ulcer of left calf with fat layer exposed; I87.332 Chronic venous hypertension (idiopathic) with ulcer and inflammation of left lower extremity; D68.51 Activated protein C resistance; I82.503 Chronic embolism and thrombosis of unspecified deep veins of lower extremity, bilateral; L97.522 Non-pressure chronic ulcer of other part of left foot with fat layer exposed; I89.0 Lymphedema, not elsewhere classified | CPT/HCPCS: 11042; 11045; G0463 ==

== ENCOUNTER → 2020-09-17 | Outpatient (CLI) | payer BC | LOC: WOUNDCARE 08:34 | PROVIDERS: ATTEND Surgery | DX: I87.1 Compression of vein (principal); I96 Gangrene, not elsewhere classified; I87.332 Chronic venous hypertension (idiopathic) with ulcer and inflammation of left lower extremity; I82.503 Chronic embolism and thrombosis of unspecified deep veins of lower extremity, bilateral; L97.222 Non-pressure chronic ulcer of left calf with fat layer exposed; D68.51 Activated protein C resistance; L97.522 Non-pressure chronic ulcer of other part of left foot with fat layer exposed; I89.0 Lymphedema, not elsewhere classified | CPT/HCPCS: 11042; 11045; A6253; G0463 ==

== ENCOUNTER → 2020-09-24 | Outpatient (CLI) | payer BC | LOC: WOUNDCARE 08:33 | PROVIDERS: ATTEND Surgery | DX: I87.1 Compression of vein (principal); I87.332 Chronic venous hypertension (idiopathic) with ulcer and inflammation of left lower extremity; I82.503 Chronic embolism and thrombosis of unspecified deep veins of lower extremity, bilateral; L97.222 Non-pressure chronic ulcer of left calf with fat layer exposed; D68.51 Activated protein C resistance; L97.522 Non-pressure chronic ulcer of other part of left foot with fat layer exposed; I89.0 Lymphedema, not elsewhere classified; I96 Gangrene, not elsewhere classified | CPT/HCPCS: 11042; 11045; G0463 ==

== ENCOUNTER → 2020-10-01 | Outpatient (CLI) | payer BC | LOC: WOUNDCARE 08:26 | PROVIDERS: ATTEND Surgery | DX: I87.1 Compression of vein (principal); I96 Gangrene, not elsewhere classified; I87.332 Chronic venous hypertension (idiopathic) with ulcer and inflammation of left lower extremity; I82.503 Chronic embolism and thrombosis of unspecified deep veins of lower extremity, bilateral; L97.222 Non-pressure chronic ulcer of left calf with fat layer exposed; D68.51 Activated protein C resistance; L97.522 Non-pressure chronic ulcer of other part of left foot with fat layer exposed; I89.0 Lymphedema, not elsewhere classified | CPT/HCPCS: 11042; 11045; G0463 ==

== ENCOUNTER → 2020-10-16 | Outpatient (CLI) | payer BC | LOC: WOUNDCARE 09:04 | PROVIDERS: ATTEND Surgery | DX: I87.1 Compression of vein (principal); I87.332 Chronic venous hypertension (idiopathic) with ulcer and inflammation of left lower extremity; I82.503 Chronic embolism and thrombosis of unspecified deep veins of lower extremity, bilateral; L97.222 Non-pressure chronic ulcer of left calf with fat layer exposed; D68.51 Activated protein C resistance; L97.522 Non-pressure chronic ulcer of other part of left foot with fat layer exposed; I89.0 Lymphedema, not elsewhere classified; I96 Gangrene, not elsewhere classified | CPT/HCPCS: 11042; 11045; A6207; A6253; G0463 ==

== ENCOUNTER → 2020-10-19 | Outpatient (CLI) | payer BC | LOC: WOUNDCARE 08:25 | PROVIDERS: ATTEND Surgery | DX: I87.332 Chronic venous hypertension (idiopathic) with ulcer and inflammation of left lower extremity (principal); D64.9 Anemia, unspecified | CPT/HCPCS: 29581; A6207; G0463 ==

== ENCOUNTER → 2020-10-22 | Outpatient (CLI) | payer BC | LOC: WOUNDCARE 08:40 | PROVIDERS: ATTEND Surgery | DX: I87.1 Compression of vein (principal); I87.332 Chronic venous hypertension (idiopathic) with ulcer and inflammation of left lower extremity; I82.503 Chronic embolism and thrombosis of unspecified deep veins of lower extremity, bilateral; L97.222 Non-pressure chronic ulcer of left calf with fat layer exposed; D68.51 Activated protein C resistance; L97.522 Non-pressure chronic ulcer of other part of left foot with fat layer exposed; I89.0 Lymphedema, not elsewhere classified; I96 Gangrene, not elsewhere classified | CPT/HCPCS: 11042; 11045; A6253; G0463 ==

== ENCOUNTER → 2020-10-29 | Outpatient (CLI) | payer BC | LOC: LAB 10:01 | PROVIDERS: ATTEND Surgery | DX: I87.1 Compression of vein (principal); I87.332 Chronic venous hypertension (idiopathic) with ulcer and inflammation of left lower extremity; I82.503 Chronic embolism and thrombosis of unspecified deep veins of lower extremity, bilateral; L97.222 Non-pressure chronic ulcer of left calf with fat layer exposed; D68.51 Activated protein C resistance; L97.522 Non-pressure chronic ulcer of other part of left foot with fat layer exposed; I89.0 Lymphedema, not elsewhere classified | CPT/HCPCS: 36415; 84134 ==

== ENCOUNTER → 2020-10-29 | Outpatient (CLI) | payer BC | LOC: WOUNDCARE 08:29 | PROVIDERS: ATTEND Surgery | DX: I87.1 Compression of vein (principal); I96 Gangrene, not elsewhere classified; I87.332 Chronic venous hypertension (idiopathic) with ulcer and inflammation of left lower extremity; I82.503 Chronic embolism and thrombosis of unspecified deep veins of lower extremity, bilateral; L97.222 Non-pressure chronic ulcer of left calf with fat layer exposed; D68.51 Activated protein C resistance; L97.522 Non-pressure chronic ulcer of other part of left foot with fat layer exposed; I89.0 Lymphedema, not elsewhere classified | CPT/HCPCS: 11042; 11045; A6207; A6253; G0463 ==

== ENCOUNTER → 2020-11-01 | Outpatient (CLI) | payer BC | LOC: WOUNDCARE 08:21 | PROVIDERS: ATTEND Surgery | DX: L97.222 Non-pressure chronic ulcer of left calf with fat layer exposed (principal); I89.0 Lymphedema, not elsewhere classified; S91.102A Unspecified open wound of left great toe without damage to nail, initial encounter; S81.802A Unspecified open wound, left lower leg, initial encounter | CPT/HCPCS: 29581; A6253; G0463 ==

== ENCOUNTER → 2020-11-05 | Outpatient (CLI) | payer BC | LOC: WOUNDCARE 08:42 | PROVIDERS: ATTEND Surgery | DX: I87.1 Compression of vein (principal); I96 Gangrene, not elsewhere classified; I87.332 Chronic venous hypertension (idiopathic) with ulcer and inflammation of left lower extremity; I82.503 Chronic embolism and thrombosis of unspecified deep veins of lower extremity, bilateral; L97.222 Non-pressure chronic ulcer of left calf with fat layer exposed; D68.51 Activated protein C resistance; L97.522 Non-pressure chronic ulcer of other part of left foot with fat layer exposed; I89.0 Lymphedema, not elsewhere classified | CPT/HCPCS: 11042; 11045; A6253; G0463 ==

== ENCOUNTER → 2020-11-08 | Outpatient (CLI) | payer BC ==
[2020-11-08 09:52] LABS: CALCIUM 8.8 MG/DL (8.5-10.1); CREATININE SERUM 1.34 MG/DL (0.60-1.30)
== END ==
LOC: LAB 09:04
PROVIDERS: ATTEND Surgery
DX: I87.1 Compression of vein (principal); I87.332 Chronic venous hypertension (idiopathic) with ulcer and inflammation of left lower extremity; I82.503 Chronic embolism and thrombosis of unspecified deep veins of lower extremity, bilateral; L97.222 Non-pressure chronic ulcer of left calf with fat layer exposed; D68.51 Activated protein C resistance; L97.522 Non-pressure chronic ulcer of other part of left foot with fat layer exposed; I89.0 Lymphedema, not elsewhere classified
CPT/HCPCS: 36415; 80048

== ENCOUNTER → 2020-11-08 | Outpatient (CLI) | payer BC | LOC: WOUNDCARE 08:22 | PROVIDERS: ATTEND Surgery | DX: L97.222 Non-pressure chronic ulcer of left calf with fat layer exposed (principal); I89.0 Lymphedema, not elsewhere classified | CPT/HCPCS: 29581; A6253; G0463 ==

== ENCOUNTER → 2020-11-13 | Outpatient (CLI) | payer BC | LOC: WOUNDCARE 08:31 | PROVIDERS: ATTEND Surgery | DX: I87.1 Compression of vein (principal); I87.332 Chronic venous hypertension (idiopathic) with ulcer and inflammation of left lower extremity; I82.503 Chronic embolism and thrombosis of unspecified deep veins of lower extremity, bilateral; L97.222 Non-pressure chronic ulcer of left calf with fat layer exposed; D68.51 Activated protein C resistance; L97.522 Non-pressure chronic ulcer of other part of left foot with fat layer exposed; I89.0 Lymphedema, not elsewhere classified; I96 Gangrene, not elsewhere classified ==

== ENCOUNTER → 2020-11-16 | Outpatient (CLI) | payer BC | LOC: WOUNDCARE 08:15 | PROVIDERS: ATTEND Surgery | DX: I87.332 Chronic venous hypertension (idiopathic) with ulcer and inflammation of left lower extremity (principal); I89.0 Lymphedema, not elsewhere classified | CPT/HCPCS: 29581; A6253; G0463 ==

== ENCOUNTER → 2020-11-19 | Outpatient (CLI) | payer BC | LOC: WOUNDCARE 08:27 | PROVIDERS: ATTEND Surgery | DX: I87.1 Compression of vein (principal); I96 Gangrene, not elsewhere classified; I87.332 Chronic venous hypertension (idiopathic) with ulcer and inflammation of left lower extremity; I82.503 Chronic embolism and thrombosis of unspecified deep veins of lower extremity, bilateral; D68.51 Activated protein C resistance; L97.522 Non-pressure chronic ulcer of other part of left foot with fat layer exposed; I89.0 Lymphedema, not elsewhere classified | CPT/HCPCS: 11042; 11045; A6253; G0463 ==

== ENCOUNTER → 2020-11-26 | Outpatient (CLI) | payer BC | LOC: WOUNDCARE 08:33 | PROVIDERS: ATTEND Surgery | DX: I87.1 Compression of vein (principal); I87.332 Chronic venous hypertension (idiopathic) with ulcer and inflammation of left lower extremity; I82.503 Chronic embolism and thrombosis of unspecified deep veins of lower extremity, bilateral; L97.222 Non-pressure chronic ulcer of left calf with fat layer exposed; D68.51 Activated protein C resistance; L97.522 Non-pressure chronic ulcer of other part of left foot with fat layer exposed; I89.0 Lymphedema, not elsewhere classified; I96 Gangrene, not elsewhere classified | CPT/HCPCS: 11042; 11045; G0463 ==

== ENCOUNTER → 2020-12-03 | Outpatient (CLI) | payer BC | LOC: WOUNDCARE 08:39 | PROVIDERS: ATTEND Surgery | DX: I87.1 Compression of vein (principal); I96 Gangrene, not elsewhere classified; I87.332 Chronic venous hypertension (idiopathic) with ulcer and inflammation of left lower extremity; I82.503 Chronic embolism and thrombosis of unspecified deep veins of lower extremity, bilateral; L97.222 Non-pressure chronic ulcer of left calf with fat layer exposed; D68.51 Activated protein C resistance; L97.522 Non-pressure chronic ulcer of other part of left foot with fat layer exposed; I89.0 Lymphedema, not elsewhere classified | CPT/HCPCS: 11042; 11045; G0463 ==

== ENCOUNTER 2020-12-10 09:50 | Outpatient (RCR) | payer BC ==
[2020-09-17 10:00] LABS: HEMATOCRIT 33 % (40-54); HEMOGLOBIN 9.9 g/dL (13.3-17.7); MEAN CORPUSCULAR HEMOGLOBIN 22 pg (25-34); MEAN CORPUSCULAR HGB CONC 31 g/dL (32-36); MEAN CORPUSCULAR VOLUME 72 fL (80-99); MEAN PLATELET VOLUME 9.5 fL (9.0-12.2); PLATELET COUNT 245 10^3/uL (130-400); WHITE BLOOD COUNT 6.7 10^3/uL (4.3-11.0)
[2020-09-17 10:17] LABS: ALBUMIN 3.5 GM/DL (3.2-4.5); BILIRUBIN,TOTAL 0.4 MG/DL (0.1-1.0); CALCIUM 9.1 MG/DL (8.5-10.1); CREATININE SERUM 1.35 MG/DL (0.60-1.30); POTASSIUM 3.9 MMOL/L (3.6-5.0)
[2020-12-07 12:38] LABS: BASOPHILS % (AUTO) 0 % (0-10); EOSINOPHILS # (AUTO) 0.2 10^3/uL (0.0-0.3); EOSINOPHILS % (AUTO) 3 % (0-10); HEMATOCRIT 34 % (40-54); HEMOGLOBIN 10.1 g/dL (13.3-17.7); LYMPHOCYTES # (AUTO) 1.2 10^3/uL (1.0-4.0); LYMPHOCYTES % (AUTO) 22 % (12-44); MEAN CORPUSCULAR HEMOGLOBIN 22 pg (25-34); MEAN CORPUSCULAR HGB CONC 29 g/dL (32-36); MEAN CORPUSCULAR VOLUME 75 fL (80-99); MEAN PLATELET VOLUME 9.6 fL (9.0-12.2); MONOCYTES # (AUTO) 0.4 10^3/uL (0.0-1.0); MONOCYTES % (AUTO) 7 % (0-12); NEUTROPHILS # (AUTO) 3.7 10^3/uL (1.8-7.8); NEUTROPHILS % (AUTO) 68 % (42-75); PLATELET COUNT 306 10^3/uL (130-400); WHITE BLOOD COUNT 5.5 10^3/uL (4.3-11.0)
[2020-12-07 12:55] LABS: ALBUMIN 3.4 GM/DL (3.2-4.5); BILIRUBIN,TOTAL 0.2 MG/DL (0.1-1.0); CALCIUM 9.1 MG/DL (8.5-10.1); CREATININE SERUM 1.41 MG/DL (0.60-1.30); POTASSIUM 4.8 MMOL/L (3.6-5.0); TOTAL PROTEIN 6.8 GM/DL (6.4-8.2)
== END 2020-12-16 | disposition home or self-care (01) ==
LOC: ONC 09:50
PROVIDERS: ATTEND Internal Medicine Hematology & Oncology
DX: D50.0 Iron deficiency anemia secondary to blood loss (chronic) (principal); D68.51 Activated protein C resistance; S81.802A Unspecified open wound, left lower leg, initial encounter; E66.01 Morbid (severe) obesity due to excess calories; Z68.39 Body mass index [BMI] 39.0-39.9, adult; Z79.899 Other long term (current) drug therapy; Z87.11 Personal history of peptic ulcer disease
CPT/HCPCS: 80053; 82728; 83540; 83550; 85027; G0463; 85025

== ENCOUNTER → 2020-12-10 | Outpatient (CLI) | payer BC | LOC: WOUNDCARE 08:41 | PROVIDERS: ATTEND Surgery | DX: I87.1 Compression of vein (principal); I96 Gangrene, not elsewhere classified; I87.332 Chronic venous hypertension (idiopathic) with ulcer and inflammation of left lower extremity; I82.503 Chronic embolism and thrombosis of unspecified deep veins of lower extremity, bilateral; L97.222 Non-pressure chronic ulcer of left calf with fat layer exposed; D68.51 Activated protein C resistance; L97.522 Non-pressure chronic ulcer of other part of left foot with fat layer exposed; I89.0 Lymphedema, not elsewhere classified | CPT/HCPCS: 11042; 11045; G0463 ==

== ENCOUNTER → 2020-12-17 | Outpatient (CLI) | payer BC | LOC: WOUNDCARE 08:30 | PROVIDERS: ATTEND Surgery | DX: I87.332 Chronic venous hypertension (idiopathic) with ulcer and inflammation of left lower extremity (principal); I82.503 Chronic embolism and thrombosis of unspecified deep veins of lower extremity, bilateral; L97.222 Non-pressure chronic ulcer of left calf with fat layer exposed; D68.51 Activated protein C resistance; L97.522 Non-pressure chronic ulcer of other part of left foot with fat layer exposed; I89.0 Lymphedema, not elsewhere classified; I96 Gangrene, not elsewhere classified | CPT/HCPCS: 11042; 11045; A6207; G0463 ==

== ENCOUNTER → 2020-12-21 | Outpatient (CLI) | payer BC | LOC: WOUNDCARE 13:59 | PROVIDERS: ATTEND Family Medicine ==

== ENCOUNTER → 2020-12-24 | Outpatient (CLI) | payer BC | LOC: WOUNDCARE 08:55 | PROVIDERS: ATTEND Family Medicine | DX: I87.1 Compression of vein (principal); I87.332 Chronic venous hypertension (idiopathic) with ulcer and inflammation of left lower extremity; I82.503 Chronic embolism and thrombosis of unspecified deep veins of lower extremity, bilateral; I89.0 Lymphedema, not elsewhere classified; I96 Gangrene, not elsewhere classified; L97.222 Non-pressure chronic ulcer of left calf with fat layer exposed; D68.51 Activated protein C resistance; L97.522 Non-pressure chronic ulcer of other part of left foot with fat layer exposed | CPT/HCPCS: 11042; 11045; A6207; A6253; G0463 ==

== ENCOUNTER → 2020-12-28 | Outpatient (CLI) | payer BC | LOC: WOUNDCARE 08:35 | PROVIDERS: ATTEND Family Medicine | DX: I89.0 Lymphedema, not elsewhere classified (principal); S91.109A Unspecified open wound of unspecified toe(s) without damage to nail, initial encounter; L97.222 Non-pressure chronic ulcer of left calf with fat layer exposed | CPT/HCPCS: 29581; A6207; A6253; G0463 ==

== ENCOUNTER → 2020-12-31 | Outpatient (CLI) | payer BC | LOC: WOUNDCARE 08:47 | PROVIDERS: ATTEND Family Medicine | DX: I87.1 Compression of vein (principal); I87.332 Chronic venous hypertension (idiopathic) with ulcer and inflammation of left lower extremity; I82.503 Chronic embolism and thrombosis of unspecified deep veins of lower extremity, bilateral; L97.222 Non-pressure chronic ulcer of left calf with fat layer exposed; D68.51 Activated protein C resistance; L97.522 Non-pressure chronic ulcer of other part of left foot with fat layer exposed; I89.0 Lymphedema, not elsewhere classified; B35.4 Tinea corporis; I96 Gangrene, not elsewhere classified | CPT/HCPCS: 11042; 11045; A6207; A6253; G0463 ==

== ENCOUNTER → 2021-01-04 | Outpatient (CLI) | payer BC | LOC: WOUNDCARE 08:32 | PROVIDERS: ATTEND Family Medicine | DX: I89.0 Lymphedema, not elsewhere classified (principal); S91.109A Unspecified open wound of unspecified toe(s) without damage to nail, initial encounter; L97.229 Non-pressure chronic ulcer of left calf with unspecified severity | CPT/HCPCS: 29581; A6207; A6234; A6253; G0463 ==

== ENCOUNTER → 2021-01-07 | Outpatient (CLI) | payer BC | LOC: WOUNDCARE 08:41 | PROVIDERS: ATTEND Family Medicine | DX: I87.1 Compression of vein (principal); I87.332 Chronic venous hypertension (idiopathic) with ulcer and inflammation of left lower extremity; I82.503 Chronic embolism and thrombosis of unspecified deep veins of lower extremity, bilateral; I89.0 Lymphedema, not elsewhere classified; L97.222 Non-pressure chronic ulcer of left calf with fat layer exposed; D68.51 Activated protein C resistance; B35.4 Tinea corporis; I96 Gangrene, not elsewhere classified | CPT/HCPCS: 11042; 11045; A6207; A6253; G0463 ==

== ENCOUNTER → 2021-01-11 | Outpatient (CLI) | payer BC | LOC: WOUNDCARE 08:35 | PROVIDERS: ATTEND Family Medicine | DX: I89.0 Lymphedema, not elsewhere classified (principal); D64.9 Anemia, unspecified; I82.409 Acute embolism and thrombosis of unspecified deep veins of unspecified lower extremity; I73.9 Peripheral vascular disease, unspecified | CPT/HCPCS: 99213 ==

== ENCOUNTER → 2021-01-14 | Outpatient (CLI) | payer BC | LOC: WOUNDCARE 08:31 | PROVIDERS: ATTEND Family Medicine | DX: I87.1 Compression of vein (principal); I87.332 Chronic venous hypertension (idiopathic) with ulcer and inflammation of left lower extremity; I96 Gangrene, not elsewhere classified; I82.503 Chronic embolism and thrombosis of unspecified deep veins of lower extremity, bilateral; L97.222 Non-pressure chronic ulcer of left calf with fat layer exposed; D68.51 Activated protein C resistance; L97.522 Non-pressure chronic ulcer of other part of left foot with fat layer exposed; I89.0 Lymphedema, not elsewhere classified; B35.4 Tinea corporis | CPT/HCPCS: 11042; 11045; G0463 ==

== ENCOUNTER → 2021-01-21 | Outpatient (CLI) | payer BC | LOC: WOUNDCARE 08:34 | PROVIDERS: ATTEND Family Medicine | DX: I87.1 Compression of vein (principal); I87.332 Chronic venous hypertension (idiopathic) with ulcer and inflammation of left lower extremity; I82.503 Chronic embolism and thrombosis of unspecified deep veins of lower extremity, bilateral; L97.222 Non-pressure chronic ulcer of left calf with fat layer exposed; D68.51 Activated protein C resistance; L97.522 Non-pressure chronic ulcer of other part of left foot with fat layer exposed; I89.0 Lymphedema, not elsewhere classified; B35.4 Tinea corporis; I96 Gangrene, not elsewhere classified | CPT/HCPCS: 11042; 11045; G0463 ==

== ENCOUNTER → 2021-02-04 | Outpatient (CLI) | payer BC | LOC: WOUNDCARE 08:53 | PROVIDERS: ATTEND Family Medicine | DX: I87.1 Compression of vein (principal); I87.332 Chronic venous hypertension (idiopathic) with ulcer and inflammation of left lower extremity; I96 Gangrene, not elsewhere classified; I82.503 Chronic embolism and thrombosis of unspecified deep veins of lower extremity, bilateral; L97.222 Non-pressure chronic ulcer of left calf with fat layer exposed; D68.51 Activated protein C resistance; L97.522 Non-pressure chronic ulcer of other part of left foot with fat layer exposed; I89.0 Lymphedema, not elsewhere classified; B35.4 Tinea corporis; L03.116 Cellulitis of left lower limb | CPT/HCPCS: 11042; 11045; G0463 ==

== ENCOUNTER → 2021-02-11 | Outpatient (CLI) | payer BC | LOC: WOUNDCARE 08:33 | PROVIDERS: ATTEND Family Medicine | DX: I87.1 Compression of vein (principal); I87.332 Chronic venous hypertension (idiopathic) with ulcer and inflammation of left lower extremity; I82.503 Chronic embolism and thrombosis of unspecified deep veins of lower extremity, bilateral; L97.222 Non-pressure chronic ulcer of left calf with fat layer exposed; D68.51 Activated protein C resistance; L97.522 Non-pressure chronic ulcer of other part of left foot with fat layer exposed; I89.0 Lymphedema, not elsewhere classified; B35.4 Tinea corporis; L03.116 Cellulitis of left lower limb; I96 Gangrene, not elsewhere classified | CPT/HCPCS: 11042; 11045; G0463 ==

== ENCOUNTER → 2021-02-18 | Outpatient (CLI) | payer BC | LOC: WOUNDCARE 08:29 | PROVIDERS: ATTEND Family Medicine | DX: I87.1 Compression of vein (principal); I87.332 Chronic venous hypertension (idiopathic) with ulcer and inflammation of left lower extremity; I82.503 Chronic embolism and thrombosis of unspecified deep veins of lower extremity, bilateral; L97.222 Non-pressure chronic ulcer of left calf with fat layer exposed; D68.51 Activated protein C resistance; L97.522 Non-pressure chronic ulcer of other part of left foot with fat layer exposed; I89.0 Lymphedema, not elsewhere classified; B35.4 Tinea corporis; L03.116 Cellulitis of left lower limb; I96 Gangrene, not elsewhere classified | CPT/HCPCS: 11042; 11045; G0463 ==

== ENCOUNTER → 2021-02-25 | Outpatient (CLI) | payer BC | LOC: WOUNDCARE 08:36 | PROVIDERS: ATTEND Family Medicine | DX: I87.1 Compression of vein (principal); I87.332 Chronic venous hypertension (idiopathic) with ulcer and inflammation of left lower extremity; I82.503 Chronic embolism and thrombosis of unspecified deep veins of lower extremity, bilateral; L97.222 Non-pressure chronic ulcer of left calf with fat layer exposed; D68.51 Activated protein C resistance; L97.522 Non-pressure chronic ulcer of other part of left foot with fat layer exposed; I89.0 Lymphedema, not elsewhere classified; B35.4 Tinea corporis; L03.116 Cellulitis of left lower limb; I96 Gangrene, not elsewhere classified | CPT/HCPCS: 11042; 11045; G0463 ==

== ENCOUNTER → 2021-03-04 | Outpatient (CLI) | payer BC | LOC: WOUNDCARE 08:47 | PROVIDERS: ATTEND Family Medicine | DX: I87.1 Compression of vein (principal); I87.332 Chronic venous hypertension (idiopathic) with ulcer and inflammation of left lower extremity; I82.503 Chronic embolism and thrombosis of unspecified deep veins of lower extremity, bilateral; L97.222 Non-pressure chronic ulcer of left calf with fat layer exposed; D68.51 Activated protein C resistance; L97.522 Non-pressure chronic ulcer of other part of left foot with fat layer exposed; I89.0 Lymphedema, not elsewhere classified; B35.4 Tinea corporis; I96 Gangrene, not elsewhere classified | CPT/HCPCS: 11042; 11045; G0463 ==

== ENCOUNTER → 2021-03-11 | Outpatient (CLI) | payer BC | LOC: WOUNDCARE 08:32 | PROVIDERS: ATTEND Family Medicine | DX: I87.332 Chronic venous hypertension (idiopathic) with ulcer and inflammation of left lower extremity (principal); I82.503 Chronic embolism and thrombosis of unspecified deep veins of lower extremity, bilateral; L97.222 Non-pressure chronic ulcer of left calf with fat layer exposed; D68.51 Activated protein C resistance; L97.522 Non-pressure chronic ulcer of other part of left foot with fat layer exposed; I89.0 Lymphedema, not elsewhere classified; I96 Gangrene, not elsewhere classified | CPT/HCPCS: 11042; 11045; G0463 ==

== ENCOUNTER 2021-03-18 08:19 | Outpatient (RCR) | payer BC ==
[2021-03-18 08:36] LABS: BASOPHILS % (AUTO) 0 % (0-10); EOSINOPHILS # (AUTO) 0.3 10^3/uL (0.0-0.3); EOSINOPHILS % (AUTO) 7 % (0-10); HEMATOCRIT 37 % (40-54); HEMOGLOBIN 11.2 g/dL (13.3-17.7); LYMPHOCYTES # (AUTO) 1.1 10^3/uL (1.0-4.0); LYMPHOCYTES % (AUTO) 24 % (12-44); MEAN CORPUSCULAR HEMOGLOBIN 23 pg (25-34); MEAN CORPUSCULAR HGB CONC 30 g/dL (32-36); MEAN CORPUSCULAR VOLUME 76 fL (80-99); MEAN PLATELET VOLUME 9.6 fL (9.0-12.2); MONOCYTES # (AUTO) 0.4 10^3/uL (0.0-1.0); MONOCYTES % (AUTO) 8 % (0-12); NEUTROPHILS # (AUTO) 2.9 10^3/uL (1.8-7.8); NEUTROPHILS % (AUTO) 61 % (42-75); PLATELET COUNT 231 10^3/uL (130-400); WHITE BLOOD COUNT 4.7 10^3/uL (4.3-11.0)
[2021-03-18 09:00] LABS: ALBUMIN 3.6 GM/DL (3.2-4.5); BILIRUBIN,TOTAL 0.2 MG/DL (0.1-1.0); CREATININE SERUM 1.37 MG/DL (0.60-1.30); POTASSIUM 4.1 MMOL/L (3.6-5.0); TOTAL PROTEIN 7.2 GM/DL (6.4-8.2)
== END 2021-04-08 | disposition home or self-care (01) ==
LOC: ONC 08:19
PROVIDERS: ATTEND Internal Medicine Hematology & Oncology
DX: D50.0 Iron deficiency anemia secondary to blood loss (chronic) (principal); D68.51 Activated protein C resistance; S81.802A Unspecified open wound, left lower leg, initial encounter; E66.01 Morbid (severe) obesity due to excess calories; Z68.39 Body mass index [BMI] 39.0-39.9, adult; Z79.899 Other long term (current) drug therapy; Z87.11 Personal history of peptic ulcer disease
CPT/HCPCS: 80053; 82728; 83540; 83550; 85025

== ENCOUNTER → 2021-03-18 | Outpatient (CLI) | payer BC | LOC: ONC 08:27 | PROVIDERS: ATTEND Family Medicine | DX: I87.1 Compression of vein (principal); I89.0 Lymphedema, not elsewhere classified; I87.332 Chronic venous hypertension (idiopathic) with ulcer and inflammation of left lower extremity; I82.503 Chronic embolism and thrombosis of unspecified deep veins of lower extremity, bilateral; L97.222 Non-pressure chronic ulcer of left calf with fat layer exposed; D68.51 Activated protein C resistance; L97.522 Non-pressure chronic ulcer of other part of left foot with fat layer exposed | CPT/HCPCS: 84134; 99213 ==

== ENCOUNTER → 2021-03-18 | Outpatient (CLI) | payer BC | LOC: WOUNDCARE 08:33 | PROVIDERS: ATTEND Family Medicine | DX: I87.332 Chronic venous hypertension (idiopathic) with ulcer and inflammation of left lower extremity (principal); I82.503 Chronic embolism and thrombosis of unspecified deep veins of lower extremity, bilateral; L97.222 Non-pressure chronic ulcer of left calf with fat layer exposed; D68.51 Activated protein C resistance; L97.522 Non-pressure chronic ulcer of other part of left foot with fat layer exposed; I89.0 Lymphedema, not elsewhere classified; I96 Gangrene, not elsewhere classified | CPT/HCPCS: 11042; 11045; G0463 ==

== ENCOUNTER → 2021-03-25 | Outpatient (CLI) | payer BC | LOC: WOUNDCARE 08:40 | PROVIDERS: ATTEND Family Medicine | DX: I87.1 Compression of vein (principal); I87.332 Chronic venous hypertension (idiopathic) with ulcer and inflammation of left lower extremity; I82.503 Chronic embolism and thrombosis of unspecified deep veins of lower extremity, bilateral; L97.222 Non-pressure chronic ulcer of left calf with fat layer exposed; D68.51 Activated protein C resistance; L97.522 Non-pressure chronic ulcer of other part of left foot with fat layer exposed; I89.0 Lymphedema, not elsewhere classified; I96 Gangrene, not elsewhere classified | CPT/HCPCS: 11042; 11045; G0463 ==

== ENCOUNTER → 2021-04-01 | Outpatient (CLI) | payer BC | LOC: WOUNDCARE 08:42 | PROVIDERS: ATTEND Family Medicine | DX: I87.332 Chronic venous hypertension (idiopathic) with ulcer and inflammation of left lower extremity (principal); I82.503 Chronic embolism and thrombosis of unspecified deep veins of lower extremity, bilateral; L97.222 Non-pressure chronic ulcer of left calf with fat layer exposed; D68.51 Activated protein C resistance; L97.522 Non-pressure chronic ulcer of other part of left foot with fat layer exposed; I89.0 Lymphedema, not elsewhere classified; I96 Gangrene, not elsewhere classified | CPT/HCPCS: 11042; 11045; G0463 ==